=== PATIENT | female | born 1975 | race Caucasian/White ===

== ENCOUNTER 2019-11-27 10:33 | Outpatient (REF) | payer BC, SELFPAY ==
[2019-11-27 11:51] LABS: Creatinine Urine 137.07 mg/dL; Total Protein Urine Random 178 mg/dL (<12)
== END 2019-11-27 10:34 | disposition home or self-care (01) ==
LOC: HO.LAB 10:33
PROVIDERS: PCP Internal Medicine; Visit Provider Internal Medicine Nephrology
DX: N20.0 Calculus of kidney (principal); M32.14 Glomerular disease in systemic lupus erythematosus; R80.9 Proteinuria, unspecified; N28.9 Disorder of kidney and ureter, unspecified; M32.9 Systemic lupus erythematosus, unspecified
CPT/HCPCS: 84156

== ENCOUNTER → 2019-12-05 13:05 | Outpatient (BNVA) | payer BC, SELFPAY | PROVIDERS: PCP Internal Medicine; Referring Provider Internal Medicine; Visit Provider Nurse Practitioner Family | DX: Z76.89 Persons encountering health services in other specified circumstances (principal) ==

== ENCOUNTER → 2019-12-13 14:31 | Outpatient (BNVA) | payer BC, SELFPAY | PROVIDERS: PCP Internal Medicine; Referring Provider Internal Medicine; Visit Provider Student in an Organized Health Care Education/Training Program | DX: Z76.89 Persons encountering health services in other specified circumstances (principal) ==

== ENCOUNTER 2019-12-21 11:02 | Outpatient (REF) | payer BC, SELFPAY ==
[2019-12-21 13:04] LABS: Glucose Urine UA NEG (NEG); Leukocyte Esterase Urine NEG (NEG); Nitrite Urine NEG (NEG); Specific Gravity - Urine >= 1.030 (1.005-1.025); Urine Blood TRACE (NEG); Urine Ketones NEG (NEG); Urine Protein 2+ MG/DL (NEG-TRACE)
[2019-12-21 13:06] LABS: Appearance Urine HAZY; Color Urine YELLOW
[2019-12-21 13:28] LABS: Mucus Urine 3+ /LPF; Squamous Epithelial Cell Urine 1+ /LPF
[2019-12-21 13:55] LABS: Creatinine Urine 156.95 mg/dL; Protein/Creatinine Ratio, Ur 1.01 (<0.2); Total Protein Urine Random 158 mg/dL (<12)
[2019-12-21 13:59] LABS: Anion Gap 13 (12-20); Blood Urea Nitrogen 18 mg/dL (9-16); Calcium 9.1 mg/dL (8.4-10.2); Carbon Dioxide 23 mmol/L (22-29); Chloride 108 mmol/L (96-108); Estimated Glomerular Filt Rate > 60; Phosphorus 4.1 mg/dL (2.7-4.5); Potassium 4.3 mmol/l (3.3-5.1); Sodium 140 mmol/L (135-145)
[2019-12-21 16:39] LABS: Renal w Reflex Lab Use Only Order verified
[2019-12-22 12:01] LABS: Anti DNA DS Antibody <1 IU/mL
[2019-12-25 15:02] LABS: Complement C3 150 mg/dL (83-193)
== END 2019-12-21 11:03 | disposition home or self-care (01) ==
LOC: HO.LAB 11:02
PROVIDERS: Student in an Organized Health Care Education/Training Program; Absent Provider Internal Medicine Nephrology; Visit Provider Advanced Practice Midwife
DX: M32.9 Systemic lupus erythematosus, unspecified (principal); N20.0 Calculus of kidney; M32.14 Glomerular disease in systemic lupus erythematosus; R80.9 Proteinuria, unspecified; N28.9 Disorder of kidney and ureter, unspecified
CPT/HCPCS: 36415; 80051; 81001; 82310; 82565; 84100; 84156; 84520; 86160; 86225

== ENCOUNTER 2020-02-23 08:14 | Outpatient (REF) | payer BC, SELFPAY ==
[2020-02-23 09:10] LABS: MANUAL DIFF FLAG NO
[2020-02-23 09:15] LABS: Glucose Urine UA NEG (NEG); Leukocyte Esterase Urine NEG (NEG); Nitrite Urine NEG (NEG); PH 6.5 (5.0-8.0); Specific Gravity - Urine 1.025 (1.005-1.025); Urine Blood 2+ (NEG); Urine Ketones NEG (NEG); Urine Protein 2+ MG/DL (NEG-TRACE)
[2020-02-23 09:16] LABS: Basophils Percent Auto 0.6 % (0-2); Eosinophils Absolute Auto 0.1 X10*3/uL (0.0-0.4); Eosinophils Percent Auto 1.6 % (0-4); Hematocrit 41.2 % (37-47); Hemoglobin 13.8 g/dl (12.0-16.0); Imm Gran Abs Auto 0.04 X10*3/uL (0.00-0.03); Imm Gran Pct Auto 0.6 % (0.0-0.4); Lymphocytes Absolute Auto 2.1 X10*3/uL (1.2-4.9); Lymphocytes Percent Auto 30.3 % (20-40); Mean Corpuscular HGB Conc 33.5 g/dl (31.0-35.0); Mean Corpuscular Hemoglobin 29.7 pg (27.0-33.0); Mean Corpuscular Volume 88.8 fL (80-98); Mean Platelet Volume 11.3 fL (9.4-12.3); Monocytes Absolute Auto 0.4 X10*3/uL (0.1-1.2); Monocytes Percent Auto 5.7 % (2-11); Neutrophils Absolute Auto 4.3 X10*3/uL (2.0-8.3); Neutrophils Percent Auto 61.2 % (45-73); Platelet Count 216 X10*3/uL (160-400); Red Blood Count 4.64 X10*6/uL (4.20-5.50); Red Cell Distribution Width 13.1 % (11.0-16.0); White Blood Count 7.1 X10*3/uL (4.8-10.8)
[2020-02-23 09:16] LABS: Appearance Urine CLEAR; Color Urine YELLOW
[2020-02-23 09:26] LABS: Bacteria Urine TRACE /LPF; Mucus Urine 1+ /LPF; Squamous Epithelial Cell Urine 1+ /LPF
[2020-02-23 09:46] LABS: Alanine Aminotransferase 127 U/L (0-31); Albumin Level 3.9 g/dL (3.5-5.0); Alkaline Phosphatase 102 U/L (39-117); Anion Gap 13 (12-20); Aspartate Amino Transferase 67 U/L (5-31); Bilirubin Total 0.6 mg/dL (0.0-1.0); Blood Urea Nitrogen 16 mg/dL (9-16); C Reactive Protein 0.18 mg/dL (< or = 0.50); Calcium 9.2 mg/dL (8.4-10.2); Carbon Dioxide 24 mmol/L (22-29); Chloride 107 mmol/L (96-108); Estimated Glomerular Filt Rate > 60; Glucose Random 95 mg/dL (60-115); Potassium 4.2 mmol/l (3.3-5.1); Sodium 140 mmol/L (135-145)
[2020-02-23 10:09] LABS: Erythrocyte Sedimentation Rate 21 MM/HR (0-20)
== END 2020-02-23 08:15 | disposition home or self-care (01) ==
LOC: HO.LAB 08:14
PROVIDERS: PCP Internal Medicine; Visit Provider Student in an Organized Health Care Education/Training Program
DX: M32.9 Systemic lupus erythematosus, unspecified (principal)
CPT/HCPCS: 36415; 80053; 81001; 85025; 85652; 86140

== ENCOUNTER 2020-03-01 08:19 | Outpatient (REF) | payer BC, SELFPAY ==
[2020-03-01 09:19] LABS: Glucose Urine UA NEG (NEG); Leukocyte Esterase Urine NEG (NEG); Nitrite Urine NEG (NEG); Specific Gravity - Urine 1.025 (1.005-1.025); Urine Blood TRACE (NEG); Urine Ketones NEG (NEG); Urine Protein 2+ MG/DL (NEG-TRACE)
[2020-03-01 09:21] LABS: Appearance Urine CLEAR; Color Urine STRAW
[2020-03-01 09:57] LABS: Alanine Aminotransferase 105 U/L (0-31); Albumin Level 3.9 g/dL (3.5-5.0); Alkaline Phosphatase 96 U/L (39-117); Anion Gap 8 (12-20); Aspartate Amino Transferase 51 U/L (5-31); Bilirubin Total 0.5 mg/dL (0.0-1.0); Blood Urea Nitrogen 15 mg/dL (9-16); Calcium 8.9 mg/dL (8.4-10.2); Carbon Dioxide 29 mmol/L (22-29); Chloride 109 mmol/L (96-108); Estimated Glomerular Filt Rate > 60; Glucose Random 97 mg/dL (60-115); Potassium 4.5 mmol/l (3.3-5.1); Sodium 141 mmol/L (135-145); Total Protein 6.8 g/dL (6.5-8.0)
[2020-03-01 09:59] LABS: Squamous Epithelial Cell Urine TRACE /LPF
== END 2020-03-01 08:20 | disposition home or self-care (01) ==
LOC: HO.LAB 08:19
PROVIDERS: PCP Internal Medicine; Visit Provider Student in an Organized Health Care Education/Training Program
DX: M32.9 Systemic lupus erythematosus, unspecified (principal)
CPT/HCPCS: 36415; 80053; 81001

== ENCOUNTER → 2020-03-08 10:56 | Outpatient (BNVA) | payer BC, SELFPAY | PROVIDERS: PCP Internal Medicine; Visit Provider Advanced Practice Midwife | DX: Z30.42 Encounter for surveillance of injectable contraceptive (principal) | CPT/HCPCS: 96372; J1050 ==

== ENCOUNTER 2020-03-19 07:56 | Outpatient (REF) | payer BC, SELFPAY ==
--- NOTE | 2020-03-19 08:00 | US_ITS ---
EXAMINATION: US ABDOMEN COMPLETE CLINICAL INFORMATION: Elevation of levels of liver transaminase levels. COMPARISON: Ultrasound abdomen complete dated 12/02/2015 and 06/03/2009. CT abdomen and pelvis without contrast dated 04/16/2013. TECHNIQUE: Real-time imaging of the abdominal viscera. FINDINGS: PANCREAS: Normal. ABDOMINAL AORTA: The proximal, mid, and distal segments are normal in caliber. INFERIOR VENA CAVA: Visualized portions are normal. LIVER: Focal calcification within the posterior right hepatic lobe, which may indicate prior granulomatous disease. This was not seen on the prior examination. The liver is normal in size. The liver contour is normal. Parenchymal echogenicity is normal. No focal hepatic lesion. There is no intrahepatic biliary duct dilatation seen. GALLBLADDER: Normal. The gallbladder is physiologically distended without evidence of stones, sludge, polyps, wall thickening or pericholecystic fluid. COMMON BILE DUCT: Normal in caliber measuring 0.3 cm in diameter. RIGHT KIDNEY: Increased cortical echogenicity, which can be seen in the setting of medical renal disease. No focal parenchymal lesion. No hydronephrosis. No renal calculi. The kidney measures 11.3 cm in maximum dimension. LEFT KIDNEY: Increased cortical echogenicity, which can be seen in the setting of medical renal disease. Upper pole cyst measuring up to 3.5 cm with multiple septations. Midpole simple-appearing cyst measuring up to 2.9 cm. No hydronephrosis or renal calculi. The kidney measures 12.0 cm in maximum dimension. SPLEEN: Normal. The spleen measures 9.3 cm in maximum dimension. FREE FLUID: Partially visualized possible trace pericardial effusion. US/US abdomen complete IMPRESSION: 1. Focal hepatic parenchymal calcification, which may indicate prior granulomatous disease. No additional hepatic parenchymal lesion or biliary ductal dilatation. Unremarkable gallbladder. 2. Increased renal cortical echogenicity bilaterally, which can be seen in the setting of medical renal disease. Left renal upper pole complex cyst, increased in size when compared to the prior examination now measuring 3.5 cm (previously 1.5 cm). Simple-appearing left midpole renal cyst now measuring 2.9 cm (previously 1.1 cm). No new renal parenchymal lesion. 3. Partially visualized possible trace pericardial effusion.
== END 2020-03-19 07:57 | disposition home or self-care (01) ==
LOC: HO.US 07:56
PROVIDERS: Visit Provider Student in an Organized Health Care Education/Training Program
DX: R74.01 Elevation of levels of liver transaminase levels (principal)
CPT/HCPCS: 76700

== ENCOUNTER 2020-03-26 09:58 | Outpatient (REF) | payer BC, SELFPAY ==
[2020-03-26 11:35] LABS: MANUAL DIFF FLAG NO
[2020-03-26 11:43] LABS: Glucose Urine UA NEG (NEG); Leukocyte Esterase Urine NEG (NEG); Nitrite Urine NEG (NEG); Specific Gravity - Urine >= 1.030 (1.005-1.025); Urine Blood NEG (NEG); Urine Ketones NEG (NEG); Urine Protein 3+ MG/DL (NEG-TRACE)
[2020-03-26 11:44] LABS: Basophils Percent Auto 0.4 % (0-2); Eosinophils Absolute Auto 0.1 X10*3/uL (0.0-0.4); Eosinophils Percent Auto 1.7 % (0-4); Hematocrit 40.5 % (37-47); Hemoglobin 13.6 g/dl (12.0-16.0); Imm Gran Abs Auto 0.02 X10*3/uL (0.00-0.03); Imm Gran Pct Auto 0.3 % (0.0-0.4); Lymphocytes Percent Auto 26.7 % (20-40); Mean Corpuscular HGB Conc 33.6 g/dl (31.0-35.0); Mean Corpuscular Hemoglobin 30.2 pg (27.0-33.0); Mean Corpuscular Volume 89.8 fL (80-98); Mean Platelet Volume 11.3 fL (9.4-12.3); Monocytes Absolute Auto 0.4 X10*3/uL (0.1-1.2); Monocytes Percent Auto 5.8 % (2-11); Neutrophils Absolute Auto 4.9 X10*3/uL (2.0-8.3); Neutrophils Percent Auto 65.1 % (45-73); Platelet Count 236 X10*3/uL (160-400); Red Blood Count 4.51 X10*6/uL (4.20-5.50); Red Cell Distribution Width 13.1 % (11.0-16.0); White Blood Count 7.6 X10*3/uL (4.8-10.8)
[2020-03-26 11:48] LABS: Appearance Urine HAZY; Color Urine YELLOW
[2020-03-26 11:57] LABS: Mucus Urine 2+ /LPF; RBC Urine 0-2 /HPF (0); Squamous Epithelial Cell Urine 1+ /LPF
[2020-03-26 12:26] LABS: Alanine Aminotransferase 44 U/L (0-31); Alkaline Phosphatase 91 U/L (39-117); Anion Gap 11 (12-20); Aspartate Amino Transferase 29 U/L (5-31); Bilirubin Total 0.4 mg/dL (0.0-1.0); Blood Urea Nitrogen 18 mg/dL (9-16); C Reactive Protein 0.24 mg/dL (< or = 0.50); Calcium 9.3 mg/dL (8.4-10.2); Carbon Dioxide 26 mmol/L (22-29); Chloride 109 mmol/L (96-108); Estimated Glomerular Filt Rate > 60; Glucose Random 72 mg/dL (60-115); Potassium 3.9 mmol/L (3.3-5.1); Sodium 142 mmol/L (135-145); Total Protein 7.2 g/dL (6.5-8.0)
[2020-03-26 12:27] LABS: Creatinine Urine 239.24 mg/dL
[2020-03-26 12:31] LABS: Erythrocyte Sedimentation Rate 21 MM/HR (0-20)
[2020-03-26 13:09] LABS: Protein/Creatinine Ratio, Ur 1.45 (<0.2); Total Protein Urine Random 347 mg/dL (<12)
[2020-03-27 12:42] LABS: Anti DNA DS Antibody <1 IU/mL
[2020-03-27 13:58] LABS: Complement C3 108 mg/dL (83-193)
== END 2020-03-26 09:59 | disposition home or self-care (01) ==
LOC: HO.LAB 09:58
PROVIDERS: PCP Internal Medicine; Visit Provider Student in an Organized Health Care Education/Training Program
DX: M32.12 Pericarditis in systemic lupus erythematosus (principal); M32.14 Glomerular disease in systemic lupus erythematosus; Z79.899 Other long term (current) drug therapy
CPT/HCPCS: 36415; 80053; 81001; 84156; 85025; 85652; 86140; 86160; 86225

== ENCOUNTER → 2020-04-16 13:19 | Outpatient (BNVA) | payer BC, SELFPAY | PROVIDERS: PCP Internal Medicine; Visit Provider Physician Assistant ==

== ENCOUNTER 2020-05-03 11:53 | Outpatient (REF) | payer BC, SELFPAY ==
[2020-05-03 15:25] LABS: Glucose Urine UA NEG (NEG); Leukocyte Esterase Urine NEG (NEG); Nitrite Urine NEG (NEG); Specific Gravity - Urine >= 1.030 (1.005-1.025); Urine Blood NEG (NEG); Urine Ketones NEG (NEG); Urine Protein 2+ MG/DL (NEG-TRACE)
[2020-05-03 15:38] LABS: Color Urine YELLOW
[2020-05-03 15:39] LABS: Appearance Urine CLEAR
[2020-05-03 16:19] LABS: Bacteria Urine TRACE /LPF; Mucus Urine 1+ /LPF; Squamous Epithelial Cell Urine TRACE /LPF
== END 2020-05-03 11:54 | disposition home or self-care (01) ==
LOC: HO.HMGCLDS 11:53
PROVIDERS: Student in an Organized Health Care Education/Training Program; PCP Internal Medicine; Visit Provider Physician Assistant
DX: M32.9 Systemic lupus erythematosus, unspecified (principal); R10.11 Right upper quadrant pain
CPT/HCPCS: 81001

== ENCOUNTER 2020-05-24 11:02 | Outpatient (REF) | payer BC, SELFPAY ==
[2020-05-24 12:45] LABS: Glucose Urine UA NEG (NEG); Leukocyte Esterase Urine NEG (NEG); Nitrite Urine NEG (NEG); Specific Gravity - Urine >= 1.030 (1.005-1.025); Urine Blood 1+ (NEG); Urine Ketones NEG (NEG); Urine Protein 2+ MG/DL (NEG-TRACE)
[2020-05-24 12:46] LABS: Appearance Urine CLEAR; Color Urine YELLOW
[2020-05-24 12:59] LABS: Mucus Urine 1+ /LPF; Squamous Epithelial Cell Urine 2+ /LPF
[2020-05-24 13:00] LABS: Alanine Aminotransferase 19 U/L (0-31); Albumin Level 3.8 g/dL (3.5-5.0); Alkaline Phosphatase 94 U/L (39-117); Aspartate Amino Transferase 17 U/L (5-31); Bilirubin Direct 0.2 mg/dL (0.0-0.5); Bilirubin Total 0.3 mg/dL (0.0-1.0); Total Protein 6.9 g/dL (6.5-8.0)
== END 2020-05-24 11:03 | disposition home or self-care (01) ==
LOC: HO.LAB 11:02
PROVIDERS: Absent Provider Physician Assistant; PCP Internal Medicine; Referring Provider Student in an Organized Health Care Education/Training Program; Visit Provider Advanced Practice Midwife
DX: Z30.42 Encounter for surveillance of injectable contraceptive (principal); R10.11 Right upper quadrant pain
CPT/HCPCS: 36415; 80076; 81001; 96372; J1050

== ENCOUNTER → 2020-06-06 08:48 | Outpatient (BNVA) | payer BC, SELFPAY | PROVIDERS: PCP Internal Medicine; Visit Provider Physician Assistant ==

== ENCOUNTER → 2020-06-10 13:54 | Outpatient (REF) | payer BC, SELFPAY ==
--- NOTE | 2020-06-10 13:56 | CA_ITS ---
Transthoracic Echocardiogram Patient (Last, First, Middle): Nery Joseph, Gender: Female Date of : 1975 Age: 44 Procedure Date: 06/10/2020 Procedure Type: Transthoracic Echocardiogram Location: OP Height: 152.4 cm Weight: 72.58 kg BSA: 1.70 m2 Heart Rate: bpm BP: 128 / 70 mmHg Director Mortgage: KATI Referring MD: Yvonne Valadez PREVENTIVE MAINTENANCE COORDINATOR-Lenore Technical Support Coordinator: Jose Morataya MD Symptoms: I31.3 - Pericardial effusion (noninflammatory) Study Quality: Fair ECG Rhythm: Sinus Conclusions: - 1. Mild LV systolic dysfunction with impaired relaxation filling pattern 2. Normal cardiac valvular Doppler 3. Normal RV systolic pressure 4. Small circumferential pericardial effusion Findings Left Ventricle Normal left ventricular cavity size. There is normal left ventricular wall thickness. The left ventricular systolic function is mildly decreased. The visually estimated ejection fraction is between 45-50%. There is mild global hypokinesis. Spectral Doppler is indicative of an impaired relaxation filling pattern. E/E prime ratio is between 8 and 15 consistent with indeterminate filling pressures. Right Ventricle Normal right ventricular cavity size and systolic function. Atria The left atrium is normal in size. There is no evidence of interatrial shunt. The right atrium is normal in size. Aortic Valve Normal aortic valve structure and function. There is no aortic valve stenosis. There is no aortic valve regurgitation. Mitral Valve Normal mitral valve structure and function. There is trace mitral valve regurgitation. There is no mitral valve stenosis. Pulmonic Valve The pulmonic valve was not well visualized. Tricuspid Valve Likely normal tricuspid valve structure and function. There is trace tricuspid valve regurgitation. The right ventricular systolic pressure is normal. The right ventricular systolic pressure is 23 mmHg. Normal right atrial pressure. There is no evidence of pulmonary hypertension. Great Vessels All visible segments of the aorta are normal in size. The pulmonary artery was not well visualized. Pericardium/Pleural There is a small circumferential pericardial effusion. Prior Study Comparison Changes noted compared to prior study dated: 06/16/2019. LV systolic function is mildly reduced Measurements 2D Linear Measurements IVSd: 1.01 0.6-0.9/0.6-1.0 cm LVIDd: 4.28 3.9-5.3/4.2-5.9 cm LVIDd Index: 2.52 2.4-3.2/2.2-3.1 cm/m2 LVIDs: 2.89 2.0-3.6 cm LVPWd: 1.01 0.7-1.1 cm Ao Root: 2.90 2.1-3.5 cm LA Diam: 3.80 2.7-3.8/3.0-4.0 cm LAIDs Index: 2.24 1.5-2.3 cm/m2 LV Mass: 178.51 67-162/88-224 g LV Mass Index: 105.01 43-95/49-115 g/m2 LVOT Diam: 2.00 3.0+(-)1.3 cm 2D Systolic Function EF 4C: 41.70 >55% EF 2C: 42.60 >55% Mitral Valve MV Pk E: 0.78 MV PK A: 0.98 MV Decel Time: 165.00 E/A: 0.80 E'Lateral: 9.09 E'Medial: 4.64 E/E' Med: 16.80 E/E' Lat: 8.60 PHT: 48.00 MVA PHT: 4.58 Decel Sampson: 4.72 Aortic Valve AoV Pk Raffi: 1.45 AoV Mn Raffi: 0.97 AoV VTI: 0.26 AoV Pk Grad: 8.00 Aov Mn Grad: 4.00 MANOLO Cont.VTI: 2.13 LVOT LVOT Pk Raffi: 1.07 LVOT Mn Raffi: 0.66 LVOT VTI: 0.18 LVOT Pk Grad: 5.00 LVOT Mn Grad: 2.00 LVOT Diam: 2.00 LVOT Area: 3.14 Diastolic Function MV Pk E: 0.78 MV Pk A: 0.98 E/A: 0.80 E'Medial: 4.64 E/E' Med: 16.80 E' Laterial: 9.09 E/E' Lat: 8.60 Tricuspid Valve TR Pk Raffi: 2.22 TR Pk Grad: 20.00 RA Press: 3.00 RVSP: 23.00 Great Vessels Aorta Ao Root-2D: 2.90 2.0-3.7 cm Ao Asc: 3.00 2.1-3.4 cm Pulmonary Valve PV Pk Raffi: 0.86 Peak PV Grad: 3.00 Updated in Other Vendor System with Status of Final Jose Morataya MD electronically signed on 06/10/2020 4:39:04 PM with status of Final
== END ==
LOC: HO.CARD 13:54
PROVIDERS: PCP Internal Medicine; Visit Provider Internal Medicine Cardiovascular Disease
DX: I31.3 Pericardial effusion (noninflammatory) (principal); M32.9 Systemic lupus erythematosus, unspecified
CPT/HCPCS: 93306

== ENCOUNTER 2020-06-17 10:25 | Outpatient (REF) | payer BC, SELFPAY ==
[2020-06-17 11:54] LABS: Glucose Urine UA NEG (NEG); Leukocyte Esterase Urine NEG (NEG); Nitrite Urine NEG (NEG); Specific Gravity - Urine >= 1.030 (1.005-1.025); Urine Blood NEG (NEG); Urine Ketones NEG (NEG); Urine Protein 2+ MG/DL (NEG-TRACE)
[2020-06-17 12:08] LABS: C Reactive Protein 0.33 mg/dL (< or = 0.50)
[2020-06-17 12:23] LABS: Appearance Urine CLEAR; Color Urine YELLOW
[2020-06-17 12:47] LABS: Mucus Urine 2+ /LPF; RBC Urine 0 /HPF (0); Squamous Epithelial Cell Urine 1+ /LPF
[2020-06-17 14:01] LABS: Erythrocyte Sedimentation Rate 27 MM/HR (0-20)
== END 2020-06-17 10:26 | disposition home or self-care (01) ==
LOC: HO.LAB 10:25
PROVIDERS: Student in an Organized Health Care Education/Training Program; PCP Internal Medicine; Referring Provider Internal Medicine; Visit Provider Nurse Practitioner Family
DX: R07.9 Chest pain, unspecified (principal); I31.3 Pericardial effusion (noninflammatory); I45.10 Unspecified right bundle-branch block; I10 Essential (primary) hypertension; M32.9 Systemic lupus erythematosus, unspecified
CPT/HCPCS: 36415; 81001; 84484; 85652; 86140; 93005

== ENCOUNTER 2020-06-17 14:41 | Inpatient (IN) | payer BC, SELFPAY ==
--- NOTE | 2020-06-17 | ECG_ITS ---
Test Reason : CHEST PAIN Blood Pressure : / mmHG Vent. Rate : 096 BPM Atrial Rate : 096 BPM P-R Int : 132 ms QRS Dur : 116 ms QT Int : 358 ms P-R-T Axes : 048 -08 015 degrees QTc Int : 452 ms Normal sinus rhythm Incomplete right bundle branch block Abnormal ECG When compared with ECG of 07-NOV-2019 14:03, No significant change was found Referred By: Generic ED Physician Electronically Signed By:SHANDRA ALVAREZ
--- NOTE | ~2020-06-17 | CT_ITS ---
EXAMINATION: CT CHEST WITHOUT CONTRAST CLINICAL INFORMATION: Chest pain with history of pericardial effusion and pericarditis COMPARISON: CTA chest 03/29/2019, abdominal ultrasound 03/19/2020 TECHNIQUE: Multidetector volumetric CT imaging of the chest was done. Axial MIP volume rendering provided. Sagittal and coronal reformatted images were obtained. This CT examination was performed using dose optimization techniques as appropriate, variously including the following: *Automated exposure control *Adjustment of mA and/or kV according to patient size (this includes techniques or standardized protocols for targeted exams where dose is matched to indication/reason for exam; i.e. extremities or head) *Use of iterative reconstruction technique DLP: 227 mGy-cm FINDINGS: LUNGS: A left upper lobe infiltrate seen on the 03/29/2019 study has resolved. Scattered pulmonary nodules are all unchanged, the largest is perifissural in the right lower lobe measuring 5 mm in size. MEDIASTINUM: The mediastinum is normal. PLEURA: There is no pleural effusion. No pleural mass or thickening. AXILLA: Small axillary lymph nodes are present with no gross lymphadenopathy. UPPER ABDOMEN: Renal cortical subtle calcification is present bilaterally most prominent in the upper poles. This was most likely present on 03/29/2019 but was not possible to see because of administration of contrast. A right renal calculus is present measuring 5 mm in greatest dimension. A complex cyst is present in the left upper pole of the left kidney. OSSEOUS STRUCTURES: Unremarkable. CT/CT chest wo con IMPRESSION: 1. A cause for the patient's chest pain has not been found. A pericardial effusion evidence of pericarditis is not present. 2. Multiple unchanged pulmonary nodules the largest of which is 5 mm in size. 3. Again seen is bilateral cortical nephrocalcinosis, a right renal calculus and a partially visualized complex left upper pole renal cyst
--- NOTE | ~2020-06-17 | XR_ITS ---
EXAMINATION: XR CHEST CLINICAL INFORMATION: Chest pain COMPARISON: None TECHNIQUE: Frontal view of the chest was obtained. FINDINGS: No significant abnormality is noted involving the heart, lungs, mediastinum, bony thorax or soft tissues. XR/XR chest 1V IMPRESSION: Unremarkable examination.
[2020-06-17 14:44] VITALS: BP 147/83; PULSE 100; RESP 18; TEMP 36.7; O2SAT 100; BMI 31.2
[2020-06-17 15:14] VITALS: BP 123/82; PULSE 108; RESP 22; O2SAT 100
--- NOTE | 2020-06-17 15:46 | ED.CHESTPAIN ---
HPI - Chest Pain General Chief Complaint: Chest Pain Stated Complaint: ABNORMAL LABS Time Seen by Provider: 06/17/20 15:14 Source: patient Mode of arrival: ambulatory Limitations: no limitations History of Present Illness HPI narrative: 44 y/o female with history of SLE on Plaquinel, history of pericardial effusion, history of pericarditis, cardiomyopathy with EF 45%, RBBB, lupus nephritis who present to the ER with an elevated troponin level and left sided chest pain for the last 2 days. She reports on Wednesday she started having intermittent poking chest pain which she has a history of. On Wednesday the pain began to be more heavy and aching. Pain is worse when she lays down. It radiates to her back & left upper arm. She had a recent ECHO on Wednesday to assess her pericardial effusion. She got the results this morning from her C S S Representative (Dr. Morataya), stable small effusion. She told him her c/o chest pain and he ordered outpatient blood work. Troponin was noted to be elevated to 205 with ESR 27. She reports being off of her Colchicine for the last 3-4 months due to elevated liver function tests. MD complaint: chest pain Onset (ago): day(s) (2) Timing of current episode: constant Prior episodes: Yes Onset: during rest Pain location: left chest Pain radiation: left arm, left shoulder and left scapula Severity: similar to previous episodes Quality: aching and heaviness Relieving factors: nothing Exacerbating factors: supine Treatment prior to arrival: none Related Data Home Medications Medication Instructions Recorded Confirmed hydroxychloroquine 200 mg tablet 300 mg PO DAILY 12/05/19 06/17/20 meclizine 25 mg tablet 25 mg PO DAILY 12/05/19 06/17/20 losartan 50 mg tablet 100 mg PO DAILY tab 12/13/19 06/17/20 medroxyprogesterone 150 mg/mL 150 mg IM [id number] 12/13/19 06/17/20 intramuscular suspension Previous Rx's Medication Instructions Recorded docusate sodium 100 mg capsule 200 mg PO BEDTIME #60 cap 04/16/20 famotidine 20 mg tablet 20 mg PO DAILY #30 tab 06/06/20 methylcellulose (laxative) 500 mg 500 mg PO BID #60 tab 06/06/20 tablet Allergies Allergy/AdvReac Type Severity Reaction Status Date / Time aspirin Allergy Unknown vomiting, Verified 06/06/20 08:48 GI upset Review of Systems Review of Systems: Constitutional: No Fever, No Chills ENT/Mouth: No sore throat, No Rhinorrhea, No Swallowing Difficulty Eyes: No Eye Pain, No Swelling, No Redness Cardiovascular: + Chest Pain, No SOB, No Orthopnea, No Edema Respiratory: No Cough, No Sputum, No Wheezing, No dyspnea Gastrointestinal: No Nausea, No Vomiting, No Diarrhea, No abdominal Pain Genitourinary: No Dysuria, No Urinary Frequency, No Hematuria Musculoskeletal: + joint pain, + Myalgias Skin: No Skin Lesions, No rash Neuro: No Weakness, No Numbness, No Dizziness, No Headache Psych: No Anxiety/Panic, No Depression Heme/Lymph: No Bruising, No Lymphadenopathy PMFSH Past Medical History Medical History Chest pain HTN (hypertension) Lupus Lupus nephritis Pericardial effusion Pericarditis associated with systemic lupus erythematosus RBBB SLE (systemic lupus erythematosus) Surgical History History of biopsy History of wisdom tooth extraction Hx of tubal ligation Family History Family History Father No problems noted. Mother No problems noted. 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 Oriented X3. No acute distress. Eyes: Pupils equal, round and reactive to light. ENT: Pharynx normal. Neck: Normal inspection. Neck supple. CVS: tachycardic, regular rhythm. Pulses normal. Left anterior chest wall is tender to touch. No muffled heart sounds Respiratory: No respiratory distress. Breath sounds normal. Abdomen: Soft and nontender. +BS x4 Skin: Skin warm and dry. Normal skin color. Normal skin turgor. No rashes. Extremities: No lower extremity edema. Negative Torito's sign. Neuro: Oriented X 3. No motor deficit. No sensory deficit. Course Course Course Narrative: 44 y/o female with history of SLE, pericardial effusion, pericarditis who presents with left sided chest pain x2 days and elevated troponin & ESR. Concerning for recurrent pericarditis vs possible ACS. Her EKG does not show ST elevations. Will repeat troponin and basic lab workup. Reevaluation(s) Reevaluation #1: Repeat troponin downtrended but remains significantly more elevated than her prior. Spoke with Dr. Lam who is recommending inpatient admission and treatment with steroids for possible pericarditis. Reevaluation #2: Spoke with Dr. Lindsey for admission. Recommending CT chest to assess for fluid/inflammation. Order placed. Patient to be admitted. Patient is agreeable and updated on plan of care. Consultations Consultation #1: Cardiology - [facility] - Chest Pain Medical Records Data Attestation: I reviewed the patient's medical records. Lab Data Attestation: I reviewed the patient's lab results. Result diagrams: 06/17/20 15:44 06/17/20 15:44 Labs: Lab Results 06/17/20 06/17/20 06/17/20 Range/Units 15:44 15:44 15:44 WBC 9.2 (4.8-10.8) X10*3/uL RBC 4.30 (4.20-5.50) X10*6/uL Hgb 13.1 (12.0-16.0) g/dl Hct 38.8 (37-47) % MCV 90.2 (80-98) fL MCH 30.5 (27.0-33.0) pg MCHC 33.8 (31.0-35.0) g/dl RDW 12.8 (11.0-16.0) % Plt Count 224 (160-400) X10*3/uL MPV 10.6 (9.4-12.3) fL Immature Gran % (Auto) 0.4 (0.0-0.4) % Neut % (Auto) 61.9 (45-73) % Lymph % (Auto) 29.1 (20-40) % Dickinson % (Auto) 6.9 (2-11) % Eos % (Auto) 1.4 (0-4) % Baso % (Auto) 0.3 (0-2) % Lymph # (Auto) 2.7 (1.2-4.9) X10*3/uL Dickinson # (Auto) 0.6 (0.1-1.2) X10*3/uL Eos # (Auto) 0.1 (0.0-0.4) X10*3/uL Baso # (Auto) 0.0 (0.0-0.2) X10*3/uL Abs Immat Gran (auto) 0.04 H (0.00-0.03) X10*3/uL Absolute Neuts (auto) 5.7 (2.0-8.3) X10*3/uL Absolute Nucleated RBC 0.000 (0.0-0.012) X10*3/uL Nucleated RBC % (auto) 0.0 (0.0-0.2) /100WBC PT (10.8-13.0) SEC INR (0.9-1.1) APTT (24.1-38.0) SEC Hold Blue Top Cancelled Sodium 141 (135-145) mmol/L Potassium 3.3 (3.3-5.1) mmol/L Chloride 109 H (96-108) mmol/L Carbon Dioxide 24 (22-29) mmol/L Anion Gap 11 L (12-20) BUN 14 (9-16) mg/dL Creatinine 0.81 (0.5-1.4) mg/dL Estim Creat Clear Calc 77.1 Estimated GFR > 60 Random Glucose 76 (60-115) mg/dL Calcium 8.9 (8.4-10.2) mg/dL Magnesium 1.9 (1.6-2.6) mg/dL Total Bilirubin 0.4 (0.0-1.0) mg/dL Direct Bilirubin < 0.2 (0.0-0.5) mg/dL AST 16 (5-31) U/L ALT 15 (0-31) U/L Alkaline Phosphatase 94 (39-117) U/L Troponin I High Sens (<3.5-17.0) ng/L C-Reactive Protein (< or = 0.50) mg/dL B-Natriuretic Peptide (<100) pg/mL Total Protein 7.4 (6.5-8.0) g/dL Albumin 4.1 (3.5-5.0) g/dL Urine Color Urine Appearance Urine pH (5.0-8.0) Ur Specific [place] (1.005-1.025) Urine Protein (NEG-TRACE) MG/DL Urine Glucose (UA) (NEG) MG/DL Urine Ketones (NEG) MG/DL Urine Blood (NEG) Urine Nitrite (NEG) Ur Leukocyte Esterase (NEG) Urine RBC (0) /HPF Urine WBC (0-4) /HPF Ur Squamous Epith Cells /LPF Urine Bacteria /LPF Urine Test (NEGATIVE) 06/17/20 06/17/20 06/17/20 Range/Units 15:44 15:44 15:44 WBC (4.8-10.8) X10*3/uL RBC (4.20-5.50) X10*6/uL Hgb (12.0-16.0) g/dl Hct (37-47) % MCV (80-98) fL MCH (27.0-33.0) pg MCHC (31.0-35.0) g/dl RDW (11.0-16.0) % Plt Count (160-400) X10*3/uL MPV (9.4-12.3) fL Immature Gran % (Auto) (0.0-0.4) % Neut % (Auto) (45-73) % Lymph % (Auto) (20-40) % Dickinson % (Auto) (2-11) % Eos % (Auto) (0-4) % Baso % (Auto) (0-2) % Lymph # (Auto) (1.2-4.9) X10*3/uL Dickinson # (Auto) (0.1-1.2) X10*3/uL Eos # (Auto) (0.0-0.4) X10*3/uL Baso # (Auto) (0.0-0.2) X10*3/uL Abs Immat Gran (auto) (0.00-0.03) X10*3/uL Absolute Neuts (auto) (2.0-8.3) X10*3/uL Absolute Nucleated RBC (0.0-0.012) X10*3/uL Nucleated RBC % (auto) (0.0-0.2) /100WBC PT 13.6 H (10.8-13.0) SEC INR 1.1 (0.9-1.1) APTT 33.8 (24.1-38.0) SEC Hold Blue Top Sodium (135-145) mmol/L Potassium (3.3-5.1) mmol/L Chloride (96-108) mmol/L Carbon Dioxide (22-29) mmol/L Anion Gap (12-20) BUN (9-16) mg/dL Creatinine (0.5-1.4) mg/dL Estim Creat Clear Calc Estimated GFR Random Glucose (60-115) mg/dL Calcium (8.4-10.2) mg/dL Magnesium (1.6-2.6) mg/dL Total Bilirubin (0.0-1.0) mg/dL Direct Bilirubin (0.0-0.5) mg/dL AST (5-31) U/L ALT (0-31) U/L Alkaline Phosphatase (39-117) U/L Troponin I High Sens 187.8 H (<3.5-17.0) ng/L C-Reactive Protein 0.34 (< or = 0.50) mg/dL B-Natriuretic Peptide (<100) pg/mL Total Protein (6.5-8.0) g/dL Albumin (3.5-5.0) g/dL Urine Color Urine Appearance Urine pH (5.0-8.0) Ur Specific [place] (1.005-1.025) Urine Protein (NEG-TRACE) MG/DL Urine Glucose (UA) (NEG) MG/DL Urine Ketones (NEG) MG/DL Urine Blood (NEG) Urine Nitrite (NEG) Ur Leukocyte Esterase (NEG) Urine RBC (0) /HPF Urine WBC (0-4) /HPF Ur Squamous Epith Cells /LPF Urine Bacteria /LPF Urine Test (NEGATIVE) 06/17/20 06/17/20 06/17/20 Range/Units 15:44 15:45 15:45 WBC (4.8-10.8) X10*3/uL RBC (4.20-5.50) X10*6/uL Hgb (12.0-16.0) g/dl Hct (37-47) % MCV (80-98) fL MCH (27.0-33.0) pg MCHC (31.0-35.0) g/dl RDW (11.0-16.0) % Plt Count (160-400) X10*3/uL MPV (9.4-12.3) fL Immature Gran % (Auto) (0.0-0.4) % Neut % (Auto) (45-73) % Lymph % (Auto) (20-40) % Dickinson % (Auto) (2-11) % Eos % (Auto) (0-4) % Baso % (Auto) (0-2) % Lymph # (Auto) (1.2-4.9) X10*3/uL Dickinson # (Auto) (0.1-1.2) X10*3/uL Eos # (Auto) (0.0-0.4) X10*3/uL Baso # (Auto) (0.0-0.2) X10*3/uL Abs Immat Gran (auto) (0.00-0.03) X10*3/uL Absolute Neuts (auto) (2.0-8.3) X10*3/uL Absolute Nucleated RBC (0.0-0.012) X10*3/uL Nucleated RBC % (auto) (0.0-0.2) /100WBC PT (10.8-13.0) SEC INR (0.9-1.1) APTT (24.1-38.0) SEC Hold Blue Top Sodium (135-145) mmol/L Potassium (3.3-5.1) mmol/L Chloride (96-108) mmol/L Carbon Dioxide (22-29) mmol/L Anion Gap (12-20) BUN (9-16) mg/dL Creatinine (0.5-1.4) mg/dL Estim Creat Clear Calc Estimated GFR Random Glucose (60-115) mg/dL Calcium (8.4-10.2) mg/dL Magnesium (1.6-2.6) mg/dL Total Bilirubin (0.0-1.0) mg/dL Direct Bilirubin (0.0-0.5) mg/dL AST (5-31) U/L ALT (0-31) U/L Alkaline Phosphatase (39-117) U/L Troponin I High Sens (<3.5-17.0) ng/L C-Reactive Protein (< or = 0.50) mg/dL B-Natriuretic Peptide 13 (<100) pg/mL Total Protein (6.5-8.0) g/dL Albumin (3.5-5.0) g/dL Urine Color YELLOW Urine Appearance CLEAR Urine pH 6.0 (5.0-8.0) Ur Specific [place] >= 1.030 H (1.005-1.025) Urine Protein 2+ H (NEG-TRACE) MG/DL Urine Glucose (UA) NEG (NEG) MG/DL Urine Ketones NEG (NEG) MG/DL Urine Blood NEG (NEG) Urine Nitrite NEG (NEG) Ur Leukocyte Esterase NEG (NEG) Urine RBC 0 (0) /HPF Urine WBC 1-4 (0-4) /HPF Ur Squamous Epith Cells 1+ /LPF Urine Bacteria NONE /LPF Urine Test NEGATIVE (NEGATIVE) ECG Data ECG #1: Attestation: I personally reviewed and interpreted this ECG as follows: ECG interpretation date: 06/17/20 ECG interpretation time: 17:03 Interpretation: normal sinus rhythm, 96 bpm, incomplete RBBB, normal SC interval, No ST segment elevations Critical Care Time Critical Care Time Critical Care Time: Yes Total Critical Care Time: 45 Attestation: I attest to critical care time spent caring for this patient with acute chest pain concerning for pericarditis vs ACS. Time spent reviewing records, imaging, speaking with consultants and coordinating care. Discharge Plan Discharge Clinical Impression: Chest pain, Elevated troponin Prescriptions: No Action hydroxychloroquine 200 mg tablet 300 mg PO DAILY RF: 0 meclizine 25 mg tablet 25 mg PO DAILY RF: 0 losartan 50 mg tablet 100 mg PO DAILY RF: 0 Citrucel 500 mg tablet 500 mg PO BID Qty: 60 RF: 5 famotidine 20 mg tablet 20 mg PO DAILY Qty: 30 RF: 3 medroxyprogesterone [Depo-Provera] 150 mg/mL suspension 150 mg IM [id number] RF: 0 medroxyprogesterone [Depo-Provera] 150 mg/mL syringe 150 mg IM ONCE Qty: 1 RF: 0 docusate sodium [Colace] 100 mg capsule 200 mg PO BEDTIME Qty: 60 RF: 5
[2020-06-17 15:51] LABS: MANUAL DIFF FLAG NO
[2020-06-17 15:56] LABS: Basophils Percent Auto 0.3 % (0-2); Eosinophils Absolute Auto 0.1 X10*3/uL (0.0-0.4); Eosinophils Percent Auto 1.4 % (0-4); Hematocrit 38.8 % (37-47); Hemoglobin 13.1 g/dl (12.0-16.0); Imm Gran Abs Auto 0.04 X10*3/uL (0.00-0.03); Imm Gran Pct Auto 0.4 % (0.0-0.4); Lymphocytes Absolute Auto 2.7 X10*3/uL (1.2-4.9); Lymphocytes Percent Auto 29.1 % (20-40); Mean Corpuscular HGB Conc 33.8 g/dl (31.0-35.0); Mean Corpuscular Hemoglobin 30.5 pg (27.0-33.0); Mean Corpuscular Volume 90.2 fL (80-98); Mean Platelet Volume 10.6 fL (9.4-12.3); Monocytes Absolute Auto 0.6 X10*3/uL (0.1-1.2); Monocytes Percent Auto 6.9 % (2-11); Neutrophils Absolute Auto 5.7 X10*3/uL (2.0-8.3); Neutrophils Percent Auto 61.9 % (45-73); Platelet Count 224 X10*3/uL (160-400); Red Cell Distribution Width 12.8 % (11.0-16.0); White Blood Count 9.2 X10*3/uL (4.8-10.8)
[2020-06-17 16:02] LABS: INTERNATIONAL NORM RATIO 1.1 (0.9-1.1); Prothrombin Time 13.6 SEC (10.8-13.0)
[2020-06-17 16:05] LABS: Partial Thromboplastin Time 33.8 SEC (24.1-38.0)
[2020-06-17 16:09] LABS: Glucose Urine UA NEG (NEG); Leukocyte Esterase Urine NEG (NEG); Nitrite Urine NEG (NEG); Specific Gravity - Urine >= 1.030 (1.005-1.025); Urine Blood NEG (NEG); Urine Ketones NEG (NEG); Urine Protein 2+ MG/DL (NEG-TRACE)
[2020-06-17 16:13] LABS: UPreg QC Valid YES; Urine Pregnancy NEGATIVE (NEGATIVE)
[2020-06-17 16:15] LABS: C Reactive Protein 0.34 mg/dL (< or = 0.50)
[2020-06-17 16:17] LABS: Alanine Aminotransferase 15 U/L (0-31); Albumin Level 4.1 g/dL (3.5-5.0); Alkaline Phosphatase 94 U/L (39-117); Anion Gap 11 (12-20); Aspartate Amino Transferase 16 U/L (5-31); Bilirubin Direct < 0.2 mg/dL (0.0-0.5); Bilirubin Total 0.4 mg/dL (0.0-1.0); Blood Urea Nitrogen 14 mg/dL (9-16); Calcium 8.9 mg/dL (8.4-10.2); Carbon Dioxide 24 mmol/L (22-29); Chloride 109 mmol/L (96-108); Creatinine Clr Calc Pharmacy 77.1; Estimated Glomerular Filt Rate > 60; Glucose Random 76 mg/dL (60-115); Magnesium 1.9 mg/dL (1.6-2.6); Potassium 3.3 mmol/L (3.3-5.1); Sodium 141 mmol/L (135-145); Total Protein 7.4 g/dL (6.5-8.0)
[2020-06-17 16:22] LABS: Appearance Urine CLEAR; Color Urine YELLOW
[2020-06-17 16:22] LABS: B Type Natriuretic Peptide 13 pg/mL (<100)
[2020-06-17 16:28] LABS: Troponin-I High Sensitivity 187.8 ng/L (<3.5-17.0)
[2020-06-17 17:04] LABS: RBC Urine 0 /HPF (0); Squamous Epithelial Cell Urine 1+ /LPF
[2020-06-17] MEDS: Ketorolac Tromethamine 30 MG/ML VIAL IVPUSH (17:06)
[2020-06-17] MEDS: predniSONE 20 MG TABLET 60 MG PO (17:06)
[2020-06-17] MEDS: Acetaminophen 325 MG TABLET 650 MG PO (18:28)
[2020-06-17 18:49] LABS: COVID-19 Test Negative (Negative); IDNOW Serial# 9DD0AD1C
[2020-06-17 19:13] VITALS: BP 122/79; PULSE 96; RESP 25; O2SAT 98
--- NOTE | 2020-06-17 20:36 | PM.IMHP ---
History of Present Illness Date of Service: 06/17/20 Chief Complaint: Left sided chest pain This is a 44-year-old female with past medical history of hypertension, SLE, lupus nephritis, pericardial effusion, pericarditis associated with SLE, RBBB, who presents to the hospital with complaints of left-sided chest pain. Patient reports that she usually undergoes routine echoes have to monitor her pericarditis, she had an echo done few days ago, was followed up by her nurse practitioner who informed her there had echo showed fluid but that he was stable and that there is nothing that she needs to be done. informed her nurse practitioner that she was experiencing stabbing left-sided chest pain as well as sore chest and back and at that time she was asked to do some lab work including troponin. Her troponin came back positive therefore advised to come to the ED. patient reports that the poking chest sensation that she had started on Wednesday, lasted all day, no exacerbating or relieving factors, nonradiating, and resolved spontaneously. The next day she had sore chest as well as back that was worse with deep inspiration, movement, laying on her back, as well as lifting her left arm. She denies having any palpitations, reports that the pain lasted all day with no relief. She denies any abdominal pain, nausea or vomiting, no urinary symptoms and no lower extremity edema. No headache, change in vision. On arrival to the ED hemodynamically stable with no significant abnormal vitals Labs are significant for WBC count of 9.1, hemoglobin of 12.3, PT of 13.6, INR of 1.1, chloride of 111, anion gap of 9, BUN of 19, creatinine of 0.78, troponin initially 205, decreased to 187.8, Normal sinus rhythm with incomplete right bundle branch block with no significant change from previous EKG Chest CT shows a cause for the patient's chest pain has not been found, a pericardial effusion evident as of pericarditis is not present Multiple unchanged pulmonary nodules with largest 5 mm, and bilateral cortical nephrocalcinosis, right renal calculus and a portion leave visualize complex left upper pole renal cyst Cardiology was contacted and advised patient admission for observation and evaluation Review of Systems Review of Systems: Yes all other systems are reviewed and are negative [facility] Medical History Chest pain HTN (hypertension) Lupus Lupus nephritis Pericardial effusion Pericarditis associated with systemic lupus erythematosus RBBB SLE (systemic lupus erythematosus) Family History Father No problems noted. Mother No problems noted. Surgical History History of biopsy History of wisdom tooth extraction Hx of tubal ligation Social History Household Members: Significant Other and Children Housing: House Do you presently have visiting nurse or other home services: No Alcohol intake: never Smoking Status: Light tobacco smoker Use of substances other than those prescribed or required for medical reasons: No Have you been hit, kicked, punched, or otherwise hurt by someone within the past year? 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 Allergies Allergy/AdvReac Type Severity Reaction Status Date / Time aspirin Allergy Unknown vomiting, Verified 06/06/20 08:48 GI upset Home Medications Medication Instructions Recorded Confirmed Last Taken Type hydroxychloroquine 200 mg tablet 200 mg PO DAILY 12/05/19 06/17/20 06/17/20 History meclizine 25 mg tablet 25 mg PO DAILY 12/05/19 06/17/20 Unknown History losartan 50 mg tablet 50 mg PO BID tab 12/13/19 06/17/20 06/17/20 History cetirizine 1 tab PO DAILY 06/17/20 06/17/20 06/17/20 History fluticasone propionate 2 spray INTRANASAL BID 06/17/20 06/17/20 06/17/20 History Physical Exam Vital Signs and Narrative: Vital Signs: Last Vital Signs Temp 98.1 F 06/17/20 14:44 Pulse 96 06/17/20 19:13 Resp 25 H 06/17/20 19:13 BP 122/79 06/17/20 19:13 Pulse Ox 98 06/17/20 19:13 Body Mass Index 31.2 Const: General: cooperative and no acute distress Orientation/consciousness: patient oriented x3 Eyes: General: appearance normal, both eyes and all related structures Chest: Other: Pain is reproducible on pressing on the left chest, lifting the left arm Resp: Effort & Inspection: normal respiratory effort and able to speak in complete sentences Cardio: Rate: regular rate Rhythm: regular rhythm GI: Palpation (GI): Soft to palpation Auscultation: normal bowel sounds Skin: General skin exam: no rashes or lesions noted Neuro: General: patient oriented x3 Cognition (Neuro): normal cognition Extrem: General: Yes normal to inspection and Yes no pedal edema Results Labs CBC and Chem 7: 06/18/20 04:09 06/18/20 04:09 Labs: Laboratory Results - last 24 hr 06/17/20 06/17/20 06/17/20 15:44 15:44 15:44 MCV 90.2 MCH 30.5 MCHC 33.8 RDW 12.8 Plt Count 224 MPV 10.6 Immature Gran % (Auto) 0.4 Neut % (Auto) 61.9 Lymph % (Auto) 29.1 [place] % (Auto) 6.9 Eos % (Auto) 1.4 Baso % (Auto) 0.3 Lymph # (Auto) 2.7 [place] # (Auto) 0.6 Eos # (Auto) 0.1 Baso # (Auto) 0.0 Abs Immat Gran (auto) 0.04 H Absolute Neuts (auto) 5.7 Absolute Nucleated RBC 0.000 Nucleated RBC % (auto) 0.0 PT INR APTT Hold Blue Top Cancelled Anion Gap 11 L Estim Creat Clear Calc 77.1 Estimated GFR > 60 Random Glucose 76 Calcium 8.9 Magnesium 1.9 Total Bilirubin 0.4 Direct Bilirubin < 0.2 AST 16 ALT 15 Alkaline Phosphatase 94 Troponin I High Sens C-Reactive Protein B-Natriuretic Peptide Total Protein 7.4 Albumin 4.1 Urine Color Urine Appearance Urine pH Ur Specific [place] Urine Protein Urine Glucose (UA) Urine Ketones Urine Blood Urine Nitrite Ur Leukocyte Esterase Urine RBC Urine WBC Ur Squamous Epith Cells Urine Bacteria Urine Test COVID-19 (CHUCKY) COVID-19 [employer] 06/17/20 06/17/20 06/17/20 15:44 15:44 15:44 MCV MCH MCHC RDW Plt Count MPV Immature Gran % (Auto) Neut % (Auto) Lymph % (Auto) [place] % (Auto) Eos % (Auto) Baso % (Auto) Lymph # (Auto) [place] # (Auto) Eos # (Auto) Baso # (Auto) Abs Immat Gran (auto) Absolute Neuts (auto) Absolute Nucleated RBC Nucleated RBC % (auto) PT 13.6 H INR 1.1 APTT 33.8 Hold Blue Top Anion Gap Estim Creat Clear Calc Estimated GFR Random Glucose Calcium Magnesium Total Bilirubin Direct Bilirubin AST ALT Alkaline Phosphatase Troponin I High Sens 187.8 H C-Reactive Protein 0.34 B-Natriuretic Peptide Total Protein Albumin Urine Color Urine Appearance Urine pH Ur Specific [place] Urine Protein Urine Glucose (UA) Urine Ketones Urine Blood Urine Nitrite Ur Leukocyte Esterase Urine RBC Urine WBC Ur Squamous Epith Cells Urine Bacteria Urine Test COVID-19 (CHUCKY) COVID-19 [employer] 06/17/20 06/17/20 06/17/20 15:44 15:45 15:45 MCV MCH MCHC RDW Plt Count MPV Immature Gran % (Auto) Neut % (Auto) Lymph % (Auto) [place] % (Auto) Eos % (Auto) Baso % (Auto) Lymph # (Auto) [place] # (Auto) Eos # (Auto) Baso # (Auto) Abs Immat Gran (auto) Absolute Neuts (auto) Absolute Nucleated RBC Nucleated RBC % (auto) PT INR APTT Hold Blue Top Anion Gap Estim Creat Clear Calc Estimated GFR Random Glucose Calcium Magnesium Total Bilirubin Direct Bilirubin AST ALT Alkaline Phosphatase Troponin I High Sens C-Reactive Protein B-Natriuretic Peptide 13 Total Protein Albumin Urine Color YELLOW Urine Appearance CLEAR Urine pH 6.0 Ur Specific [place] >= 1.030 H Urine Protein 2+ H Urine Glucose (UA) NEG Urine Ketones NEG Urine Blood NEG Urine Nitrite NEG Ur Leukocyte Esterase NEG Urine RBC 0 Urine WBC 1-4 Ur Squamous Epith Cells 1+ Urine Bacteria NONE Urine Test NEGATIVE COVID-19 ([facility]UCKY) COVID-19 [employer] 06/17/20 18:26 MCV MCH MCHC RDW Plt Count MPV Immature Gran % (Auto) Neut % (Auto) Lymph % (Auto) [place] % (Auto) Eos % (Auto) Baso % (Auto) Lymph # (Auto) [place] # (Auto) Eos # (Auto) Baso # (Auto) Abs Immat Gran (auto) Absolute Neuts (auto) Absolute Nucleated RBC Nucleated RBC % (auto) PT INR APTT Hold Blue Top Anion Gap Estim Creat Clear Calc Estimated GFR Random Glucose Calcium Magnesium Total Bilirubin Direct Bilirubin AST ALT Alkaline Phosphatase Troponin I High Sens C-Reactive Protein B-Natriuretic Peptide Total Protein Albumin Urine Color Urine Appearance Urine pH Ur Specific [place] Urine Protein Urine Glucose (UA) Urine Ketones Urine Blood Urine Nitrite Ur Leukocyte Esterase Urine RBC Urine WBC Ur Squamous Epith Cells Urine Bacteria Urine Test COVID-19 ([facility]UCKY) Negative COVID-19 Clin Com See Note Imaging Radiologist's Impressions: Impressions Chest X-Ray 06/17/20 15:15 IMPRESSION: Unremarkable examination. Chest CT 06/17/20 17:37 IMPRESSION: 1. A cause for the patient's chest pain has not been found. A pericardial effusion evidence of pericarditis is not present. 2. Multiple unchanged pulmonary nodules the largest of which is 5 mm in size. 3. Again seen is bilateral cortical nephrocalcinosis, a right renal calculus and a partially visualized complex left upper pole renal cyst Assessment and Plan (1) Elevated troponin: Status: Acute (2) Atypical chest pain: Status: Acute (3) History of pericarditis: Status: Acute This is a 44-year-old female with a past medical history of pericarditis secondary to SLE who presents to the hospital with complaints of chest pain and elevated troponin # atypical chest pain - although has elevated troponin, the presenting chest pain is non-cardiac, reproducible, associated with muscle soreness, worse with movement, lifting of the left arm, palpation - EKG shows no evidence of acute coronary syndrome - patient will be admitted to telemetry - consult cardiology - [facility] for the next 2 days to help with inflammation # elevated troponin - unclear etiology - trended down - no EKG changes suggestive of ACS - CT chest shows no evidence of pericardial effusion - cardiology consulted # History of pericarditis - Echo done on 06/05 shows mild LV systolic dysfunction with impaired relaxation filling pattern, with small circuferential pericardial effusion - consult cardiology # GERD - continue famotidine # HTN - Continue losartan DVT: Lovenox
--- NOTE | 2020-06-17 20:43 | PC.NURSE ---
PT RESTING IN STRETCHERS DENIES ANY COMPLAINTS. PT WAKES TO VOICE, RESPIRAITONS EASY, N/L. SKIN W/D. PT AWAITING FOR ROOM ASSIGNMENT.
--- NOTE | 2020-06-17 22:07 | MHC.CM.PN ---
CM met with pt. A&Ox3. 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 Lives with daughter. Has no services at home. Is not interested in completing a HCP at this time. D/C plan is home without services. Family to provide transportation home.Brother, Seamus Joseph is contact ([phone]). CM to follow for d/c needs.
--- NOTE | 2020-06-17 23:13 | PC.NURSE ---
REPORT GIVEN TO FLOOR. PT TO FLOOR IN W/C ON MONITOR. PT LEFT ED IN NAD. HL FLUSHES EASILY W/O RESISTENCE, SITE INTACT.
[2020-06-17 23:35] VITALS: BP 131/79; PULSE 96; RESP 18; TEMP 36.9; O2SAT 97
[2020-06-17] MEDS: 0.9 % Sodium Chloride Flush 3 ML SYRINGE IVFLUSH (23:59)
[2020-06-17] MEDS: Enoxaparin Sodium 40 MG/0.4 ML SYRINGE SUBCUT (23:59)
[2020-06-17] MEDS: oxyCODONE HCl Immed Release 5 MG TABLET PO (23:59)
[2020-06-18 03:21] VITALS: BP 124/66; PULSE 87; RESP 18; TEMP 36.4; O2SAT 98
[2020-06-18 04:15] LABS: MANUAL DIFF FLAG NO
[2020-06-18 04:31] LABS: Basophils Percent Auto 0.2 % (0-2); Hematocrit 36.8 % (37-47); Hemoglobin 12.3 g/dl (12.0-16.0); Imm Gran Abs Auto 0.03 X10*3/uL (0.00-0.03); Imm Gran Pct Auto 0.3 % (0.0-0.4); Lymphocytes Percent Auto 10.5 % (20-40); Mean Corpuscular HGB Conc 33.4 g/dl (31.0-35.0); Mean Corpuscular Hemoglobin 29.9 pg (27.0-33.0); Mean Corpuscular Volume 89.3 fL (80-98); Mean Platelet Volume 10.6 fL (9.4-12.3); Monocytes Absolute Auto 0.2 X10*3/uL (0.1-1.2); Monocytes Percent Auto 2.6 % (2-11); Neutrophils Absolute Auto 7.8 X10*3/uL (2.0-8.3); Neutrophils Percent Auto 86.4 % (45-73); Platelet Count 221 X10*3/uL (160-400); Red Blood Count 4.12 X10*6/uL (4.20-5.50); Red Cell Distribution Width 12.5 % (11.0-16.0); White Blood Count 9.1 X10*3/uL (4.8-10.8)
[2020-06-18 05:04] LABS: Anion Gap 9 (12-20); Blood Urea Nitrogen 19 mg/dL (9-16); Calcium 8.9 mg/dL (8.4-10.2); Carbon Dioxide 22 mmol/L (22-29); Chloride 111 mmol/L (96-108); Creatinine Clr Calc Pharmacy 80.1; Estimated Glomerular Filt Rate > 60; Glucose Random 164 mg/dL (60-115); Potassium 4.3 mmol/L (3.3-5.1); Sodium 138 mmol/L (135-145)
[2020-06-18 06:54] VITALS: BP 101/56; PULSE 83; RESP 18; TEMP 36.1; O2SAT 99
[2020-06-18 08:36] VITALS: BP 101/56; PULSE 83
[2020-06-18] MEDS: Hydroxychloroquine Sulfate 200 MG TABLET 300 MG PO (08:36)
[2020-06-18] MEDS: 0.9 % Sodium Chloride Flush 3 ML SYRINGE IVFLUSH (08:36)
[2020-06-18] MEDS: Famotidine 20 MG TABLET PO (08:36)
[2020-06-18] MEDS: Losartan Potassium 50 MG TABLET 100 MG PO (08:36)
--- NOTE | 2020-06-18 10:12 | MHC.CM.PN ---
met with pt whois independent and working cm intervention is not indicated dc plan home no services
--- NOTE | 2020-06-18 10:40 | P.DS_ITS ---
DS: Providers Provider Date of Service: 06/18/20 Date of admission: 06/17/20 20:49 Date of discharge: 06/18/20 Primary care physician: Bryant Alejandra MD Admitting clinician: Neyda Bernal Attending physician on admission: Neyda Bernal Consults: 06/17/20 16:55 Consult to Cardiology Stat Consulting Provider: Moises Lam Reason for consultation: chest pain, elevated trop, hx pericarditis Has provider been notified: Yes 06/18/20 08:28 Consult to Cardiology Routine Consulting Provider: Moises Lam Reason for consultation: chest pain Has provider been notified: No Attending physician on discharge: [facility] Discharging clinician: Ammy Morfin DS: Diagnosis Discharge Diagnosis (1) Elevated troponin: Status: Acute (2) Atypical chest pain: Status: Acute (3) History of pericarditis: Status: Acute DS: Medications Discharge Medications Home Medications: Home Medications Medication Instructions Recorded Confirmed hydroxychloroquine 200 mg tablet 200 mg PO DAILY 12/05/19 06/17/20 meclizine 25 mg tablet 25 mg PO DAILY 12/05/19 06/17/20 losartan 50 mg tablet 50 mg PO BID tab 12/13/19 06/17/20 cetirizine 1 tab PO DAILY 06/17/20 06/17/20 fluticasone propionate 2 spray INTRANASAL BID 06/17/20 06/17/20 Previous Rx's Medication Instructions Recorded docusate sodium 100 mg capsule 200 mg PO BEDTIME #60 cap 04/16/20 famotidine 20 mg tablet 20 mg PO DAILY #30 tab 06/06/20 methylcellulose (laxative) 500 mg 500 mg PO BID #60 tab 06/06/20 tablet colchicine 0.6 mg PO DAILY #30 tab 06/18/20 colchicine 1.2 mg PO DAILY #2 tab 06/18/20 DS: Summary Hospital Course Hospital Course: HP as per admitting provider This is a 44-year-old female with past medical history of hypertension, SLE, lupus nephritis, pericardial effusion, pericarditis associated with SLE, RBBB, who presents to the hospital with complaints of left-sided chest pain. Patient reports that she usually undergoes routine echoes have to monitor her pericarditis, she had an echo done few days ago, was followed up by her nurse practitioner who informed her there had echo showed fluid but that he was stable and that there is nothing that she needs to be done. informed her nurse practitioner that she was experiencing stabbing left-sided chest pain as well as sore chest and back and at that time she was asked to do some lab work including troponin. Her troponin came back positive therefore advised to come to the ED. patient reports that the poking chest sensation that she had started on Wednesday, lasted all day, no exacerbating or relieving factors, nonradiating, and resolved spontaneously. The next day she had sore chest as well as back that was worse with deep inspiration, movement, laying on her back, as well as lifting her left arm. She denies having any palpitations, reports that the pain lasted all day with no relief. She denies any abdominal pain, nausea or vomiting, no urinary symptoms and no lower extremity edema. No headache, change in vision. On arrival to the ED hemodynamically stable with no significant abnormal vitals Labs are significant for WBC count of 9.1, hemoglobin of 12.3, PT of 13.6, INR of 1.1, chloride of 111, anion gap of 9, BUN of 19, creatinine of 0.78, troponin initially 205, decreased to 187.8, Normal sinus rhythm with incomplete right bundle branch block with no significant change from previous EKG Chest CT shows a cause for the patient's chest pain has not been found, a pericardial effusion evident as of pericarditis is not present Multiple unchanged pulmonary nodules with largest 5 mm, and bilateral cortical nephrocalcinosis, right renal calculus and a portion leave visualize complex left upper pole renal cyst . Pericarditis. History of chronic pericarditis, multiple episodes. Has been treated on multiple times. History of lupus/ lupus nephritis therefore more concern for any lab changes. Earlier this year she had been on colchicine but taken off because there was some abnormalities in her liver function. Time she returns with the same symptoms of chest pain. Her troponins were noted to be elevated but not felt to be ischemic. She was seen and evaluated by Cardiology. Discussion with her motion picture film examiner with recommendation to go ahead and start colchicine, will check liver enzymes in 1 week and she should follow-up with her motion picture film examiner for these results. Special care should be taken with NSAIDs considering her history of lupus nephritis therefore will not start at this time. Attending: Dr. Mlapah Time Spent with Patient Time attestation: Total time spent providing and/or coordinating discharge services: Discharge coordination time: Greater than 30 minutes Physical Exam Vital Signs: Vital Signs: Last Vital Signs Temp 97 F 06/18/20 06:54 Pulse 83 06/18/20 08:36 Resp 18 06/18/20 06:54 BP 101/56 L 06/18/20 08:36 Pulse Ox 99 06/18/20 06:54 Body Mass Index 31.2 Appearing in no acute distress head is normocephalic atraumatic eyes pupils are PERRLA sclera is anicteric mouth throat mucous membranes are intact and moist neck is supple no lymphadenopathy, no JVD noted lung sounds are clear to auscultation heart regular rate rhythm, clear S1, S2 positive bowel sounds, abdomen is soft, nontender neuro patient is alert x3, no focal deficits DS: Data Data Completed and Pending Labs on day of discharge: Laboratory Results - last 24 hr 06/17/20 06/17/20 06/17/20 15:44 15:44 15:44 WBC 9.2 RBC 4.30 Hgb 13.1 Hct 38.8 MCV 90.2 MCH 30.5 MCHC 33.8 RDW 12.8 Plt Count 224 MPV 10.6 Immature Gran % (Auto) 0.4 Neut % (Auto) 61.9 Lymph % (Auto) 29.1 [place] % (Auto) 6.9 Eos % (Auto) 1.4 Baso % (Auto) 0.3 Lymph # (Auto) 2.7 [place] # (Auto) 0.6 Eos # (Auto) 0.1 Baso # (Auto) 0.0 Abs Immat Gran (auto) 0.04 H Absolute Neuts (auto) 5.7 Absolute Nucleated RBC 0.000 Nucleated RBC % (auto) 0.0 PT INR APTT Hold Blue Top Cancelled Sodium 141 Potassium 3.3 Chloride 109 H Carbon Dioxide 24 Anion Gap 11 L BUN 14 Creatinine 0.81 Estim Creat Clear Calc 77.1 Estimated GFR > 60 Random Glucose 76 Calcium 8.9 Magnesium 1.9 Total Bilirubin 0.4 Direct Bilirubin < 0.2 AST 16 ALT 15 Alkaline Phosphatase 94 Troponin I High Sens C-Reactive Protein B-Natriuretic Peptide Total Protein 7.4 Albumin 4.1 Urine Color Urine Appearance Urine pH Ur Specific [place] Urine Protein Urine Glucose (UA) Urine Ketones Urine Blood Urine Nitrite Ur Leukocyte Esterase Urine RBC Urine WBC Ur Squamous Epith Cells Urine Bacteria Urine Test COVID-19 (CHUCKY) COVID-19 [employer] 06/17/20 06/17/20 06/17/20 15:44 15:44 15:44 WBC RBC Hgb Hct MCV MCH MCHC RDW Plt Count MPV Immature Gran % (Auto) Neut % (Auto) Lymph % (Auto) [place] % (Auto) Eos % (Auto) Baso % (Auto) Lymph # (Auto) [place] # (Auto) Eos # (Auto) Baso # (Auto) Abs Immat Gran (auto) Absolute Neuts (auto) Absolute Nucleated RBC Nucleated RBC % (auto) PT 13.6 H INR 1.1 APTT 33.8 Hold Blue Top Sodium Potassium Chloride Carbon Dioxide Anion Gap BUN Creatinine Estim Creat Clear Calc Estimated GFR Random Glucose Calcium Magnesium Total Bilirubin Direct Bilirubin AST ALT Alkaline Phosphatase Troponin I High Sens 187.8 H C-Reactive Protein 0.34 B-Natriuretic Peptide Total Protein Albumin Urine Color Urine Appearance Urine pH Ur Specific [place] Urine Protein Urine Glucose (UA) Urine Ketones Urine Blood Urine Nitrite Ur Leukocyte Esterase Urine RBC Urine WBC Ur Squamous Epith Cells Urine Bacteria Urine Test COVID-19 (CHUCKY) COVID-19 [employer] 06/17/20 06/17/20 06/17/20 15:44 15:45 15:45 WBC RBC Hgb Hct MCV MCH MCHC RDW Plt Count MPV Immature Gran % (Auto) Neut % (Auto) Lymph % (Auto) [place] % (Auto) Eos % (Auto) Baso % (Auto) Lymph # (Auto) [place] # (Auto) Eos # (Auto) Baso # (Auto) Abs Immat Gran (auto) Absolute Neuts (auto) Absolute Nucleated RBC Nucleated RBC % (auto) PT INR APTT Hold Blue Top Sodium Potassium Chloride Carbon Dioxide Anion Gap BUN Creatinine Estim Creat Clear Calc Estimated GFR Random Glucose Calcium Magnesium Total Bilirubin Direct Bilirubin AST ALT Alkaline Phosphatase Troponin I High Sens C-Reactive Protein B-Natriuretic Peptide 13 Total Protein Albumin Urine Color YELLOW Urine Appearance CLEAR Urine pH 6.0 Ur Specific [place] >= 1.030 H Urine Protein 2+ H Urine Glucose (UA) NEG Urine Ketones NEG Urine Blood NEG Urine Nitrite NEG Ur Leukocyte Esterase NEG Urine RBC 0 Urine WBC 1-4 Ur Squamous Epith Cells 1+ Urine Bacteria NONE Urine Test NEGATIVE COVID-19 (CHUCKY) COVID-19 Clin Com 06/17/20 06/18/20 06/18/20 18:26 04:09 04:09 WBC 9.1 RBC 4.12 L Hgb 12.3 Hct 36.8 L MCV 89.3 MCH 29.9 MCHC 33.4 RDW 12.5 Plt Count 221 MPV 10.6 Immature Gran % (Auto) 0.3 Neut % (Auto) 86.4 H Lymph % (Auto) 10.5 L [place] % (Auto) 2.6 Eos % (Auto) 0.0 Baso % (Auto) 0.2 Lymph # (Auto) 1.0 L [place] # (Auto) 0.2 Eos # (Auto) 0.0 Baso # (Auto) 0.0 Abs Immat Gran (auto) 0.03 Absolute Neuts (auto) 7.8 Absolute Nucleated RBC 0.000 Nucleated RBC % (auto) 0.0 PT INR APTT Hold Blue Top Sodium 138 Potassium 4.3 D Chloride 111 H Carbon Dioxide 22 Anion Gap 9 L BUN 19 H Creatinine 0.78 Estim Creat Clear Calc 80.1 Estimated GFR > 60 Random Glucose 164 H D Calcium 8.9 Magnesium Total Bilirubin Direct Bilirubin AST ALT Alkaline Phosphatase Troponin I High Sens C-Reactive Protein B-Natriuretic Peptide Total Protein Albumin Urine Color Urine Appearance Urine pH Ur Specific [place] Urine Protein Urine Glucose (UA) Urine Ketones Urine Blood Urine Nitrite Ur Leukocyte Esterase Urine RBC Urine WBC Ur Squamous Epith Cells Urine Bacteria Urine Test COVID-19 (CHUCKY) Negative COVID-19 Clin Com See Note Discharge Plan Discharge Anticipated Discharge Date/Time: 06/18/20 10:16 Patient Disposition: Home, Self-Care Discharge Diagnosis: Pericarditis Referrals: Horacio Mancilla MD [Physician] - None (Follow up regarding liver enzymes ) Bryant Alejandra MD [Primary Care Provider] - 1 Week Discharge Medications: New colchicine 0.6 mg tablet 0.6 mg PO DAILY Qty: 30 RF: 0 colchicine 0.6 mg tablet 1.2 mg PO DAILY Qty: 2 RF: 0 Continued cetirizine 10 mg tablet 1 tab PO DAILY RF: 0 fluticasone propionate 50 mcg/actuation spray,suspension 2 spray intranasal BID RF: 0 hydroxychloroquine 200 mg tablet 200 mg PO DAILY RF: 0 meclizine 25 mg tablet 25 mg PO DAILY RF: 0 losartan 50 mg tablet 50 mg PO BID RF: 0 Citrucel 500 mg tablet 500 mg PO BID Qty: 60 RF: 5 famotidine 20 mg tablet 20 mg PO DAILY Qty: 30 RF: 3 medroxyprogesterone [Depo-Provera] 150 mg/mL syringe 150 mg IM ONCE Qty: 1 RF: 0 docusate sodium [Colace] 100 mg capsule 200 mg PO BEDTIME Qty: 60 RF: 5 Discharge Orders: Discharge Order (Routine); Ordered 06/18/20 Ordered By: Ammy Morfin Diet: advance to usual diet Activity on Discharge: As tolerated Stand Alone Forms: Patient Portal Discharge page Other Ambulatory Orders: Liver Panel (Routine) Timeframe: 1 Week Facility: [facility] - Location: Laboratory Ordered By: Ammy Morfin Care Plan Goals: Resolution of pericarditis symptoms. Health Concerns: Pericarditis Chest pain Plan of Treatment: Follow up with your primary care provider as needed Follow-up with the motion picture film examiner regarding your labs for your liver enzymes. Check Liver enzymes in one week Take your new medications as prescribed Assessment: See discharge summary
--- NOTE | 2020-06-18 11:00 | P.CONCA_ITS ---
History of Present Illness History of Present Illness Date of Service: 06/18/20 Consult reason: chest pain Chief complaint: Acs r/o Narrative: This is a cardiology consultation regarding pericarditis and chest pain. She has had recurrent pericarditis related to lupus. About 3-4 episodes in the last few years. She states that she was maintained on colchicine. However, her LFTs within noted to be abnormal and this led to stopping the colchicine. She has been off this for couple months. The last 2 days, she has been having some left-sided chest pain which felt like sharp episodes. They were radiating to the back. She felt more pain when she was lying down and when she was breathing. When she was sitting up and leaning forward, she felt better. Today she states that she is much better from pain standpoint. No other complaints like shortness of breath or palpitations. Review of Systems Review of Systems: Yes all other systems are reviewed and are negative Cardiovascular: Cardiovascular: Reports as per HPI, Reports no additional cardiovascular complaints, Denies acrocyanosis, Denies cool extremities, Denies painful fingertips, Reports chest pain, Reports chest pain at rest, Denies diaphoresis, Denies syncope, Denies irregular heart rhythm, Denies claudication, Denies leg edema, Denies lightheadedness, Denies palpitations and Denies dyspnea Respiratory: Respiratory: Denies dyspnea Neurologic: Denies syncope Endocrine: Endocrine: Denies palpitations PMFSH Past Medical History Medical History Chest pain HTN (hypertension) Lupus Lupus nephritis Pericardial effusion Pericarditis associated with systemic lupus erythematosus RBBB SLE (systemic lupus erythematosus) Family History Family History Father No problems noted. Mother No problems noted. Surgical History Surgical History History of biopsy History of wisdom tooth extraction Hx of tubal ligation Social History Social History Household Members: Significant Other and Children Housing: House Do you presently have visiting nurse or other home services: No Alcohol intake: never Smoking Status: Light tobacco smoker Use of substances other than those prescribed or required for medical reasons: No Have you been hit, kicked, punched, or otherwise hurt by someone within the past year? 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 Allergies Allergy/AdvReac Type Severity Reaction Status Date / Time aspirin Allergy Unknown vomiting, Verified 06/06/20 08:48 GI upset Active Medications: Current Medications Generic Name Dose Route Start Last Admin Trade Name Freq PRN Reason Stop Dose Admin Acetaminophen 650 mg 06/17/20 23:33 Acetaminophen 325 Mg Tablet PO Q6H PRN Pain, Mild (Pain Scale 1-3) Docusate Sodium 100 mg 06/17/20 23:33 Docusate Sodium 100 Mg Capsule PO DAILY PRN Constipation Enoxaparin Sodium 40 mg 06/18/20 00:00 06/17/20 23:59 Enoxaparin Sodium 40 Mg/0.4 Ml Syringe SUBCUT 40 mg Q24H JENNIFRE Administration Famotidine 20 mg 06/18/20 09:00 06/18/20 08:36 Famotidine 20 Mg Tablet PO 20 mg DAILY JENNIFER Administration Hydroxychloroquine Sulfate 300 mg 06/18/20 09:00 06/18/20 08:36 Hydroxychloroquine Sulfate 200 Mg Tablet PO 300 mg DAILY JENNIFER Administration Ibuprofen 400 mg 06/17/20 23:33 Ibuprofen 400 Mg Tablet PO Q8H PRN Fever or Pain, mild Losartan Potassium 100 mg 06/18/20 09:00 06/18/20 08:36 Losartan Potassium 50 Mg Tablet PO 100 mg DAILY JENNIFER Administration Protocol Meclizine HCl 25 mg 06/18/20 09:00 06/18/20 08:42 Meclizine Hcl 25 Mg Tablet PO Not Given DAILY JENNIFER Oxycodone HCl 5 mg 06/17/20 23:33 06/17/20 23:59 Oxycodone Hcl Immed Release 5 Mg Tablet PO 5 mg Q6H PRN Administration Pain, Severe (Pain Scale 7-10) Sodium Chloride 3 ml 06/18/20 00:00 06/18/20 08:36 0.9 % Sodium Chloride Flush 3 Ml Syringe IVFLUSH 3 ml QSHIFT [facility] Administration Home Medications Medication Instructions Recorded Confirmed Last Taken Type hydroxychloroquine 200 mg tablet 200 mg PO DAILY 12/05/19 06/17/20 06/17/20 History meclizine 25 mg tablet 25 mg PO DAILY 12/05/19 06/17/20 Unknown History losartan 50 mg tablet 50 mg PO BID tab 12/13/19 06/17/20 06/17/20 History cetirizine 1 tab PO DAILY 06/17/20 06/17/20 06/17/20 History fluticasone propionate 2 spray INTRANASAL BID 06/17/20 06/17/20 06/17/20 History Physical Exam Vital Signs: Vital Signs: Last Vital Signs Temp 97 F 06/18/20 06:54 Pulse 83 06/18/20 08:36 Resp 18 06/18/20 06:54 BP 101/56 L 06/18/20 08:36 Pulse Ox 99 06/18/20 06:54 Body Mass Index 31.2 Const: General: cooperative, comfortable and no acute distress Orientation/consciousness: patient oriented x3 HENMT: Other: Unremarkable Neck: Neck: Yes normal visual inspection Chest: Chest palpation & inspection: normal inspection of the chest Resp: Auscultation: clear to auscultation bilaterally, no crackles and no wheezes Cardio: Jugular venous distension: no JVD Palpation: normal PMI Heart sounds: S1 normal heart sound present, S2 normal heart sound present, no gallops, no murmurs and no rubs GI: Palpation (GI): Soft to palpation Back/Spine/Pelvis: Other: unremarkable Skin: General skin exam: no rashes or lesions noted Neuro: General: patient oriented x3 Extrem: General: Yes no clubbing, cyanosis or edema Psych: Mental Status: mental status grossly normal Results Labs and Meds Result diagrams: 06/18/20 04:09 06/18/20 04:09 Lab results: Laboratory Results - last 24 hr 06/17/20 06/17/20 06/17/20 15:44 15:44 15:44 WBC 9.2 RBC 4.30 Hgb 13.1 Hct 38.8 MCV 90.2 MCH 30.5 MCHC 33.8 RDW 12.8 Plt Count 224 MPV 10.6 Immature Gran % (Auto) 0.4 Neut % (Auto) 61.9 Lymph % (Auto) 29.1 [place] % (Auto) 6.9 Eos % (Auto) 1.4 Baso % (Auto) 0.3 Lymph # (Auto) 2.7 [place] # (Auto) 0.6 Eos # (Auto) 0.1 Baso # (Auto) 0.0 Abs Immat Gran (auto) 0.04 H Absolute Neuts (auto) 5.7 Absolute Nucleated RBC 0.000 Nucleated RBC % (auto) 0.0 PT INR APTT Hold Blue Top Cancelled Sodium 141 Potassium 3.3 Chloride 109 H Carbon Dioxide 24 Anion Gap 11 L BUN 14 Creatinine 0.81 Estim Creat Clear Calc 77.1 Estimated GFR > 60 Random Glucose 76 Calcium 8.9 Magnesium 1.9 Total Bilirubin 0.4 Direct Bilirubin < 0.2 AST 16 ALT 15 Alkaline Phosphatase 94 Troponin I High Sens C-Reactive Protein B-Natriuretic Peptide Total Protein 7.4 Albumin 4.1 Urine Color Urine Appearance Urine pH Ur Specific [place] [employer] Urine Protein Urine Glucose (UA) Urine Ketones Urine Blood Urine Nitrite Ur Leukocyte Esterase Urine RBC Urine WBC Ur Squamous Epith Cells Urine Bacteria Urine Test COVID-19 (CHUCKY) COVID-19 Clin Com 06/17/20 06/17/20 06/17/20 15:44 15:44 15:44 WBC RBC Hgb Hct MCV MCH MCHC RDW Plt Count MPV Immature Gran % (Auto) Neut % (Auto) Lymph % (Auto) [place] % (Auto) Eos % (Auto) Baso % (Auto) Lymph # (Auto) [place] # (Auto) Eos # (Auto) Baso # (Auto) Abs Immat Gran (auto) Absolute Neuts (auto) Absolute Nucleated RBC Nucleated RBC % (auto) PT 13.6 H INR 1.1 APTT 33.8 Hold Blue Top Sodium Potassium Chloride Carbon Dioxide Anion Gap BUN Creatinine Estim Creat Clear Calc Estimated GFR Random Glucose Calcium Magnesium Total Bilirubin Direct Bilirubin AST ALT Alkaline Phosphatase Troponin I High Sens 187.8 H C-Reactive Protein 0.34 B-Natriuretic Peptide Total Protein Albumin Urine Color Urine Appearance Urine pH Ur Specific [place] [employer] Urine Protein Urine Glucose (UA) Urine Ketones Urine Blood Urine Nitrite Ur Leukocyte Esterase Urine RBC Urine WBC Ur Squamous Epith Cells Urine Bacteria Urine Test COVID-19 (CHUCKY) COVID-19 Clin Com 06/17/20 06/17/20 06/17/20 15:44 15:45 15:45 WBC RBC Hgb Hct MCV MCH MCHC RDW Plt Count MPV Immature Gran % (Auto) Neut % (Auto) Lymph % (Auto) [place] % (Auto) Eos % (Auto) Baso % (Auto) Lymph # (Auto) [place] # (Auto) Eos # (Auto) Baso # (Auto) Abs Immat Gran (auto) Absolute Neuts (auto) Absolute Nucleated RBC Nucleated RBC % (auto) PT INR APTT Hold Blue Top Sodium Potassium Chloride Carbon Dioxide Anion Gap BUN Creatinine Estim Creat Clear Calc Estimated GFR Random Glucose Calcium Magnesium Total Bilirubin Direct Bilirubin AST ALT Alkaline Phosphatase Troponin I High Sens C-Reactive Protein B-Natriuretic Peptide 13 Total Protein Albumin Urine Color YELLOW Urine Appearance CLEAR Urine pH 6.0 Ur Specific [place] [employer] >= 1.030 H Urine Protein 2+ H Urine Glucose (UA) NEG Urine Ketones NEG Urine Blood NEG Urine Nitrite NEG Ur Leukocyte Esterase NEG Urine RBC 0 Urine WBC 1-4 Ur Squamous Epith Cells 1+ Urine Bacteria NONE Urine Test NEGATIVE COVID-19 (CHUCKY) COVID-19 Clin Com 06/17/20 06/18/20 06/18/20 18:26 04:09 04:09 WBC 9.1 RBC 4.12 L Hgb 12.3 Hct 36.8 L MCV 89.3 MCH 29.9 MCHC 33.4 RDW 12.5 Plt Count 221 MPV 10.6 Immature Gran % (Auto) 0.3 Neut % (Auto) 86.4 H Lymph % (Auto) 10.5 L [place] % (Auto) 2.6 Eos % (Auto) 0.0 Baso % (Auto) 0.2 Lymph # (Auto) 1.0 L [place] # (Auto) 0.2 Eos # (Auto) 0.0 Baso # (Auto) 0.0 Abs Immat Gran (auto) 0.03 Absolute Neuts (auto) 7.8 Absolute Nucleated RBC 0.000 Nucleated RBC % (auto) 0.0 PT INR APTT Hold Blue Top Sodium 138 Potassium 4.3 D Chloride 111 H Carbon Dioxide 22 Anion Gap 9 L BUN 19 H Creatinine 0.78 Estim Creat Clear Calc 80.1 Estimated GFR > 60 Random Glucose 164 H D Calcium 8.9 Magnesium Total Bilirubin Direct Bilirubin AST ALT Alkaline Phosphatase Troponin I High Sens C-Reactive Protein B-Natriuretic Peptide Total Protein Albumin Urine Color Urine Appearance Urine pH Ur Specific [place] [employer] Urine Protein Urine Glucose (UA) Urine Ketones Urine Blood Urine Nitrite Ur Leukocyte Esterase Urine RBC Urine WBC Ur Squamous Epith Cells Urine Bacteria Urine Test COVID-19 (CHUCKY) Negative COVID-19 Clin Com See Note ECG Attestation: I personally reviewed and interpreted this ECG as follows: Interpretation: EKG on admission with sinus rhythm and incomplete right bundle- branch block and similar to prior. Imaging Radiologist's impression: Impressions Chest X-Ray 06/17/20 15:15 IMPRESSION: Unremarkable examination. Chest CT 06/17/20 17:37 IMPRESSION: 1. A cause for the patient's chest pain has not been found. A pericardial effusion evidence of pericarditis is not present. 2. Multiple unchanged pulmonary nodules the largest of which is 5 mm in size. 3. Again seen is bilateral cortical nephrocalcinosis, a right renal calculus and a partially visualized complex left upper pole renal cyst Assessment and Plan (1) Acute pericarditis: Qualifiers: Pericarditis type: associated with systemic lupus erythematosus Qualified Code(s): M32.12 - Pericarditis in systemic lupus erythematosus Status: Acute (2) Elevated troponin: Status: Acute (3) SLE (systemic lupus erythematosus): Qualifiers: Systemic lupus erythematosus type: other Systemic lupus erythematosus organ involvement: pericarditis Qualified Code(s): M32.12 - Pericarditis in systemic lupus erythematosus Status: Acute (4) Pericardial effusion: Status: Acute Elevated high sensitivity troponins noted. In the recent echocardiogram, LVEF was mildly diminished at 45-50%. There was a small circumferential pericardial effusion. However does not show the effusion no other significant findings. Clinically, her symptoms are suggestive of pericarditis. Need to discuss with rheumatology about resuming colchicine; not clear if that truly led to the abnormal LFTs in the past but they seem to be normal now. Otherwise, NSAIDs, but again after discussing with rheumatology. She seems to be stable for discharge and we can arrange follow-up.
[2020-06-18] MEDS: Colchicine 0.6 MG TABLET 1.2 MG PO (11:15)
--- NOTE | 2020-06-18 11:16 | MHC.CM.PN ---
pt dcd today no skilled servceis ordered by
== END 2020-06-18 13:10 | disposition home or self-care (01) | DRG 346 ==
LOC: HO.ED 17:43 → HO.EDOVER 21:13 → HO.IMC 22:04
PROVIDERS: Physician Assistant; Admitting Provider Internal Medicine; Emergency Provider Emergency Medicine; PCP Internal Medicine; Visit Provider Internal Medicine
DX: M32.12 Pericarditis in systemic lupus erythematosus (principal); I10 Essential (primary) hypertension; M32.9 Systemic lupus erythematosus, unspecified; K21.9 Gastro-esophageal reflux disease without esophagitis; R79.89 Other specified abnormal findings of blood chemistry; F17.210 Nicotine dependence, cigarettes, uncomplicated; Z71.6 Tobacco abuse counseling; Z20.822 Contact with and (suspected) exposure to COVID-19; Z79.3 Long term (current) use of hormonal contraceptives; Z79.51 Long term (current) use of inhaled steroids; Z79.899 Other long term (current) drug therapy
CPT/HCPCS: 36415; 71045; 71250; 80048; 80076; 81001; 81003; 81025; 83735; 83880; 84484; 85025; 85610; 85730; 86140; 87635; 93005; 96374; 99285; 99291; J1650; J1885

== ENCOUNTER → 2020-06-24 09:23 | Outpatient (REF) | payer BC, SELFPAY ==
--- NOTE | 2020-06-24 | CA_ITS ---
Acquisition Time: 2020-06-24 09:45:54 Total Exercise Time: 00:05:31 Test Indications: Chest Pain Medications: LOSARTAN HYDROXYCHLOROQUINE FAMOTIDINE Protocol: YESSICA Max HR: 171 BPM 98% of Pred: 174 BPM Max BP: 150/080 mmHG Max Work Load: 7.0 METS Exercise stress test using Buce protocol, total of 5 min 31 sec METS 7.0, TAPHR uo to 98 %. Pt tolerated well, c/o 2/10 chest discomfort, pressure that resolved 2 min into recovery. EKG with occ. PVC's and no ischemic changes seen during exercise or in recovery. Nuclear images to follow. Normotensive response to exercise. Test reviewed with Dr. Lam. Referred By: Yvonne Valadez Overread By: Gege Haque NP
--- NOTE | ~2020-06-24 | NM_ITS ---
Exercise Myocardial perfusion study Indication: Cardiomyopathy to evaluate for myocardial ischemia Technique: The patient was brought in for an exercise perfusion study on 06/24/2020. Patient performed exercise as per Amrik protocol and was injected 25 mCi of sestamibi was given intravenously one target HR was achieved. Images were obtained using the SPECT gamma camera interlaced with the gating device. Images were obtained in supine position. Resting perfusion study was performed on 06/25/2020. Patient was administered 25 mCi of sestamibi intravenously at rest. Images were then obtained in supine position. Images obtained with and without CT attenuation. Total DLP 91 mGy-cm. Images were processed with the software and compared side to side in short axis, horizontal long axis and vertical long axis views. Findings: The stress perfusion study showed non attenuated images show normal uptake of radiotracer in all segments of LV myocardium. Attenuation corrected images show mildly reduced uptake in the apex of the LV myocardium. The gated study shows normal LV systolic function with calculated LVEF of 69%. LV cavity is normal in size. The gated study shows normal systolic wall thickening and contraction of all segments. There is no transient ischemic dilation. Resting study shows no change in perfusion pattern compared to stress perfusion study. Gating at rest reveals normal systolic wall motion with ejection fraction at greater than 70 %. The findings are consistent with normal myocardial perfusion. NM/NM cardiolite stress test Impression: 1. Normal myocardial perfusion 2. Gated LVEF is 60% 3. Transient ischemic dilatation not present Stress EKG is equivocal for ischemia
== END ==
LOC: HO.CARD 09:23
PROVIDERS: PCP Internal Medicine; Visit Provider Nurse Practitioner Family
DX: R07.9 Chest pain, unspecified (principal); I42.9 Cardiomyopathy, unspecified; I31.3 Pericardial effusion (noninflammatory); I45.10 Unspecified right bundle-branch block; M32.9 Systemic lupus erythematosus, unspecified
CPT/HCPCS: 78452; 93016; 93017; 93018; A9500

== ENCOUNTER → 2020-07-01 14:27 | Outpatient (BNVA) | payer BC, SELFPAY | PROVIDERS: PCP Internal Medicine; Referring Provider Internal Medicine; Visit Provider Internal Medicine Cardiovascular Disease ==

== ENCOUNTER 2020-07-05 14:47 | Outpatient (REF) | payer BC, SELFPAY ==
[2020-07-05 15:44] LABS: MANUAL DIFF FLAG NO
[2020-07-05 15:48] LABS: Basophils Percent Auto 0.4 % (0-2); Eosinophils Absolute Auto 0.1 X10*3/uL (0.0-0.4); Eosinophils Percent Auto 1.3 % (0-4); Hematocrit 38.8 % (37-47); Imm Gran Abs Auto 0.02 X10*3/uL (0.00-0.03); Imm Gran Pct Auto 0.3 % (0.0-0.4); Lymphocytes Absolute Auto 2.1 X10*3/uL (1.2-4.9); Lymphocytes Percent Auto 29.3 % (20-40); Mean Corpuscular HGB Conc 33.5 g/dl (31.0-35.0); Mean Corpuscular Hemoglobin 30.1 pg (27.0-33.0); Mean Corpuscular Volume 89.8 fL (80-98); Mean Platelet Volume 10.7 fL (9.4-12.3); Monocytes Absolute Auto 0.5 X10*3/uL (0.1-1.2); Monocytes Percent Auto 7.5 % (2-11); Neutrophils Absolute Auto 4.3 X10*3/uL (2.0-8.3); Neutrophils Percent Auto 61.2 % (45-73); Platelet Count 205 X10*3/uL (160-400); Red Blood Count 4.32 X10*6/uL (4.20-5.50)
[2020-07-05 16:24] LABS: Alanine Aminotransferase 20 U/L (0-31); Albumin Level 4.1 g/dL (3.5-5.0); Alkaline Phosphatase 91 U/L (39-117); Anion Gap 10 (12-20); Aspartate Amino Transferase 16 U/L (5-31); Bilirubin Total 0.4 mg/dL (0.0-1.0); Blood Urea Nitrogen 16 mg/dL (9-16); C Reactive Protein 0.19 mg/dL (< or = 0.50); Calcium 9.4 mg/dL (8.4-10.2); Carbon Dioxide 25 mmol/L (22-29); Chloride 111 mmol/L (96-108); Estimated Glomerular Filt Rate 56; Glucose Random 71 mg/dL (60-115); Potassium 3.7 mmol/L (3.3-5.1); Sodium 142 mmol/L (135-145)
[2020-07-05 16:30] LABS: Glucose Urine UA NEG (NEG); Leukocyte Esterase Urine TRACE (NEG); Nitrite Urine POS (NEG); Specific Gravity - Urine 1.025 (1.005-1.025); Urine Blood TRACE (NEG); Urine Ketones 5 MG/DL (NEG); Urine Protein 2+ MG/DL (NEG-TRACE)
[2020-07-05 16:32] LABS: Appearance Urine HAZY; Color Urine YELLOW
[2020-07-05 16:35] LABS: Erythrocyte Sedimentation Rate 17 MM/HR (0-20)
[2020-07-05 16:44] LABS: Bacteria Urine TRACE /LPF; Calcium Oxalate Crystals Urine 1+ /LPF; Hyaline Casts Urine 0-2 /LPF; Mucus Urine 2+ /LPF; RBC Urine 0-2 /HPF (0); Squamous Epithelial Cell Urine 2+ /LPF; WBC Urine 30-49 /HPF (0-4)
[2020-07-05 17:05] LABS: Creatinine Urine 234.88 mg/dL; Protein/Creatinine Ratio, Ur 0.77 (<0.2); Total Protein Urine Random 182 mg/dL (<12)
[2020-07-06 12:21] LABS: Anti DNA DS Antibody <1 IU/mL
[2020-07-08 14:52] LABS: Complement C3 157 mg/dL (83-193)
== END 2020-07-05 14:48 | disposition home or self-care (01) ==
LOC: HO.LAB 14:47
PROVIDERS: PCP Internal Medicine; Visit Provider Student in an Organized Health Care Education/Training Program
DX: M32.12 Pericarditis in systemic lupus erythematosus (principal); M32.14 Glomerular disease in systemic lupus erythematosus; I45.10 Unspecified right bundle-branch block; F17.200 Nicotine dependence, unspecified, uncomplicated; Z88.6 Allergy status to analgesic agent; Z79.899 Other long term (current) drug therapy
CPT/HCPCS: 36415; 80053; 81001; 84156; 85025; 85652; 86140; 86160; 86225

== ENCOUNTER 2020-07-11 | Outpatient (REF) | payer BC, SELFPAY | END 2020-07-11 00:01 | disposition home or self-care (01) | LOC: HO.LNP | PROVIDERS: Visit Provider Hospitalist | DX: R10.9 Unspecified abdominal pain (principal) | CPT/HCPCS: 87086; 87088; 87186 ==

== ENCOUNTER 2020-07-11 22:08 | Emergency (ER) | payer BC, SELFPAY ==
--- NOTE | ~2020-07-11 | CT_ITS ---
EXAMINATION: CT ABDOMEN AND PELVIS WITHOUT CONTRAST CLINICAL INFORMATION: Left flank pain COMPARISON: 04/16/2013. Chest CT from 03/29/2019. TECHNIQUE: Multidetector volumetric imaging was performed from the superior aspect of the liver through the pubic symphysis. Sagittal and coronal reformatted images were obtained on the technologist's workstation. This CT examination was performed using dose optimization techniques as appropriate, variously including the following: *Automated exposure control *Adjustment of mA and/or kV according to patient size (this includes techniques or standardized protocols for targeted exams where dose is matched to indication/reason for exam; i.e. extremities or head) *Use of iterative reconstruction technique DLP: 546 mGy-cm FINDINGS: LUNG BASES: There is an unchanged 0.4 cm right lower lobe pulmonary nodule the first image of the study. LIVER, GALLBLADDER, AND BILIARY TREE: The liver is normal in size, shape, and attenuation. No focal hepatic lesion or biliary ductal dilatation is present. The gallbladder is unremarkable with no evidence of radiopaque gallstones, gallbladder wall thickening, or obvious pericholecystic inflammatory changes. PANCREAS: Unremarkable. SPLEEN: Unremarkable. ADRENAL GLANDS: Unremarkable. KIDNEYS AND URETERS: Normal size and position of the kidneys. There is heterogeneous appearance of the renal cortices, with areas of cortical calcification. This is similar to previous imaging. There is a simple cyst at the upper pole of the left kidney measuring 2.4 cm. There is a left lower pole 2.5 cm simple cyst. No follow-up imaging recommended. There is moderate right hydroureteronephrosis. There is a distal ureteral 0.6 cm calculus near the ureterovesicular junction. This measures 550 Hounsfield units. There is a nonobstructing right midpole 0.5 cm calculus, 9.5 cm from the posterior axillary line. BLADDER: Unremarkable. GASTROINTESTINAL TRACT: The stomach is decompressed with no gross abnormality. The small bowel is normal in caliber. There is no obstruction. Normal appendix. No colonic wall thickening or acute inflammation. No free. Small amount of free fluid in the pelvis. ABDOMINAL WALL: No significant hernia is appreciated. LYMPH NODES: Normal. VASCULAR: Unremarkable. PELVIC VISCERA: The uterus and adnexa are unremarkable. OSSEOUS STRUCTURES: Unremarkable. CT/CT abdomen pelvis wo con IMPRESSION: Moderate right hydroureteronephrosis with an obstructing distal ureteral 0.6 cm calculus. Abnormal appearance of the kidneys, with subtle cortical calcification. This is similar to previous imaging. Unchanged pulmonary nodule at the right lung base, suggesting benign etiology.
[2020-07-11 22:12] VITALS: BP 142/82; PULSE 110; RESP 20; TEMP 37.1; O2SAT 98; BMI 31.6
--- NOTE | 2020-07-12 00:22 | ED.ABDPAIN ---
HPI - Abdominal Pain General Chief Complaint: Abdominal Pain Stated Complaint: kidney stones Time Seen by Provider: 07/12/20 00:11 History of Present Illness HPI narrative: Patient is a 44-year-old female presents today with having left flank pain. The pain is fairly sudden in onset. Patient was seen at her primary physician's office was noted to have blood in her urine. Patient was given Percocet for pain but is not doing the job. Presented to the emergency department further evaluation. She had difficulty taking NSAIDs secondary to renal insufficiency secondary to lupus. No coughing or congestion or upper respiratory symptoms. No diaphoresis. No vaginal discharge. Patient does not think she is . Her she had a tubal ligation done approximately 20 years ago. No dizziness. Positive nausea no vomiting. Related Data Home Medications Medication Instructions Recorded Confirmed hydroxychloroquine 200 mg tablet 200 mg PO DAILY 12/05/19 07/11/20 meclizine 25 mg tablet 25 mg PO DAILY 12/05/19 07/11/20 losartan 50 mg tablet 50 mg PO BID tab 12/13/19 07/11/20 cetirizine 1 tab PO DAILY 06/17/20 07/11/20 fluticasone propionate 2 spray INTRANASAL BID 06/17/20 07/11/20 Previous Rx's Medication Instructions Recorded docusate sodium 100 mg capsule 200 mg PO BEDTIME #60 cap 04/16/20 famotidine 20 mg tablet 20 mg PO DAILY #30 tab 06/06/20 methylcellulose (laxative) 500 mg 500 mg PO BID #60 tab 06/06/20 tablet colchicine 0.6 mg PO DAILY #30 tab 06/18/20 cyclobenzaprine 5 mg tablet 5 mg PO BEDTIME PRN #30 tab 07/05/20 ondansetron HCl 8 mg tablet 8 mg PO Q8H PRN #20 tab 07/11/20 oxycodone-acetaminophen 5 mg-325 1 tab PO Q4H PRN #20 tab 07/11/20 mg tablet tamsulosin 0.4 mg capsule 0.4 mg PO BID #14 cap 07/11/20 levofloxacin 500 mg PO DAILY #7 tab 07/12/20 ondansetron 4 mg PO TID PRN 5 Days #10 tab 07/12/20 Allergies Allergy/AdvReac Type Severity Reaction Status Date / Time aspirin Allergy Unknown vomiting, Verified 07/11/20 15:10 GI upset Review of Systems Review of Systems Constitutional: No Weight loss, No Fever, No Chills, No Night Sweats, No Fatigue, No Malaise ENT/Mouth: No Hearing loss, No Ear Pain, No Nasal Congestion, No Sinus Pain, No Hoarseness, No sore throat, No Rhinorrhea, No Swallowing Difficulty Eyes: No Eye Pain, No Swelling, No Redness, No Foreign Body, No Discharge, No Vision Changes Cardiovascular: No Chest Pain, No SOB, No Dyspnea on Exertion, No Orthopnea, No Edema, No Palpitations Respiratory: No Cough, No Sputum, No Wheezing, No Smoke Exposure, No Dyspnea Gastrointestinal: Positive Nausea, No Vomiting, No Diarrhea, No Constipation, No abdominal Pain, No Hematochezia, No Melena Genitourinary: no irregular bleeding, No Dysuria, No Urinary Frequency, positive Hematuria, positive flank pain No Urinary Incontinence, No Urgency, No Flank Pain, No Urinary Flow Changes, No Hesitancy Musculoskeletal: No joint pain, No Myalgias, No Joint Swelling Skin: No Skin Lesions, No rash Neuro: No Weakness, No Numbness, No Paresthesias, No Loss of Consciousness, No Dizziness, No Headache Psych: No Anxiety/Panic, No Depression, No SI/HI/AH/VH, No Social Issues, Heme/Lymph: No Bruising, No Bleeding,No Lymphadenopathy Endocrine: No Polyuria, No Polydipsia, No Temperature Intolerance Physical Exam Vital Signs: Vital Signs: Last Vital Signs Temp 98.8 F 07/11/20 22:12 Pulse 110 H 07/11/20 22:12 Resp 20 07/11/20 22:12 BP 142/82 H 07/11/20 22:12 Pulse Ox 98 07/11/20 22:12 Body Mass Index 31.6 Appearance: Alert. Oriented X3. No acute distress. Eyes: Pupils equal, round and reactive to light. ENT: Pharynx normal. Neck: Normal inspection. Neck supple. No lymph nodes noted. No crepitus CVS: Normal heart rate and rhythm. Pulses normal. Normal S1 and S2 Respiratory: No respiratory distress. Breath sounds normal. No Wheezing. No rales Abdomen: Soft and nontender. No rigidity. No distention. good BS x4. Positive left flank tenderness Skin: Skin warm and dry. Normal skin color. Normal skin turgor. Extremities: No lower extremity edema. Neurovascular intact to all extremities. No Lacerations. No Rash Neuro: Oriented X 3. No motor deficit. No sensory deficit. Moving all extermities. No slurred speech MDM - Abdominal Pain MDM Narrative Medical decision making narrative: Patient presented with right flank pain. CT scan of the abdomen showed a right-sided 0.6 mm stone. Likely the cause of patient's symptoms. However patient's urine was grossly infected. Will start patient on Rocephin. Patient did not develop any fever at home or in emergency department. Patient's creatinine is normal. Will discuss patient's case with urology for urgent follow-up. Currently in stable condition. Discussed with patient any fever that develops she must return to the emergency department immediately. She must take her antibiotics. She must closely follow-up with Dr. Sutton on an outpatient basis. Patient's case discussed with Dr. Sutton. Agree with plan. Understood patient has a history of lupus. Understood patient has an infected stone. Agreed if patient develops any fever chills worsening condition she must return immediately. Lab Data Result diagrams: 07/12/20 00:21 Labs: Lab Results 07/12/20 07/12/20 Range/Units 00:21 00:21 Sodium 140 (135-145) mmol/L Potassium 3.7 (3.3-5.1) mmol/L Chloride 107 (96-108) mmol/L Carbon Dioxide 24 (22-29) mmol/L Anion Gap 13 (12-20) BUN 13 (9-16) mg/dL Creatinine 0.94 (0.5-1.4) mg/dL Estim Creat Clear Calc 66.9 Estimated GFR > 60 Random Glucose 105 D (60-115) mg/dL Calcium 9.1 (8.4-10.2) mg/dL Total Bilirubin 0.3 (0.0-1.0) mg/dL Direct Bilirubin < 0.2 (0.0-0.5) mg/dL AST 22 (5-31) U/L ALT 23 (0-31) U/L Alkaline Phosphatase 100 (39-117) U/L Total Protein 7.3 (6.5-8.0) g/dL Albumin 4.2 (3.5-5.0) g/dL Lipase 26 (8-78) U/L Urine Color YELLOW Urine Appearance CLOUDY Urine pH 7.0 (5.0-8.0) Ur Specific [place] 1.015 (1.005-1.025) Urine Protein 2+ H (NEG-TRACE) MG/DL Urine Glucose (UA) NEG (NEG) MG/DL Urine Ketones NEG (NEG) MG/DL Urine Blood 1+ H (NEG) Urine Nitrite NEG (NEG) Ur Leukocyte Esterase 3+ H (NEG) Urine RBC 0-2 (0) /HPF Urine WBC 50-75 H (0-4) /HPF Urine WBC Clumps NOTED Ur Squamous Epith Cells 1+ /LPF Urine Bacteria 2+ /LPF Urine Mucus TRACE /LPF Discharge Plan Discharge Clinical Impression: Renal colic, UTI (urinary tract infection) Patient Disposition: Home, Self-Care Instructions: Urinary Tract Infection in Women (ED), Renal Colic (ED) Prescriptions: New ondansetron 4 mg tablet,disintegrating 4 mg PO TID PRN (Reason: nausea and vomiting) 5 Days Qty: 10 RF: 0 levofloxacin 500 mg tablet 500 mg PO DAILY Qty: 7 RF: 0 No Action cetirizine 10 mg tablet 1 tab PO DAILY RF: 0 fluticasone propionate 50 mcg/actuation spray,suspension 2 spray intranasal BID RF: 0 colchicine 0.6 mg tablet 0.6 mg PO DAILY Qty: 30 RF: 0 ondansetron HCl 8 mg tablet 8 mg PO Q8H PRN (Reason: nausea and vomiting) Qty: 20 RF: 0 oxycodone-acetaminophen [Percocet] 5-325 mg tablet 1 tab PO Q4H PRN (Reason: pain) Qty: 20 RF: 0 tamsulosin [Flomax] 0.4 mg capsule 0.4 mg PO BID Qty: 14 RF: 0 hydroxychloroquine 200 mg tablet 200 mg PO DAILY RF: 0 meclizine 25 mg tablet 25 mg PO DAILY RF: 0 losartan 50 mg tablet 50 mg PO BID RF: 0 cyclobenzaprine 5 mg tablet 5 mg PO BEDTIME PRN (Reason: muscle spasm) Qty: 30 RF: 2 Citrucel 500 mg tablet 500 mg PO BID Qty: 60 RF: 5 famotidine 20 mg tablet 20 mg PO DAILY Qty: 30 RF: 3 medroxyprogesterone [Depo-Provera] 150 mg/mL syringe 150 mg IM ONCE Qty: 1 RF: 0 docusate sodium [Colace] 100 mg capsule 200 mg PO BEDTIME Qty: 60 RF: 5 Referrals: Julio Sutton MD [Physician] - 1 day [facility] Past Medical History Medical History Chest pain HTN (hypertension) Lupus Lupus nephritis Pericardial effusion Pericarditis associated with systemic lupus erythematosus RBBB SLE (systemic lupus erythematosus) Surgical History History of biopsy History of wisdom tooth extraction Hx of tubal ligation Family History Family History Father No problems noted. Mother No problems noted. 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
[2020-07-12] MEDS: HYDROmorphone HCl 0.5 MG/0.5 ML SYRINGE IVPUSH (00:25)
[2020-07-12] MEDS: ondansetron HCL 4 MG/2 ML VIAL IVPUSH (00:26)
[2020-07-12 00:39] LABS: Appearance Urine CLOUDY; Color Urine YELLOW; Glucose Urine UA NEG (NEG); Leukocyte Esterase Urine 3+ (NEG); Nitrite Urine NEG (NEG); Specific Gravity - Urine 1.015 (1.005-1.025); UACC Culture Trigger YES; Urine Blood 1+ (NEG); Urine Ketones NEG (NEG); Urine Protein 2+ MG/DL (NEG-TRACE)
[2020-07-12 00:56] LABS: Bacteria Urine 2+ /LPF; Mucus Urine TRACE /LPF; RBC Urine 0-2 /HPF (0); Squamous Epithelial Cell Urine 1+ /LPF; WBC Clumps Urine NOTED; WBC Urine 50-75 /HPF (0-4)
[2020-07-12 00:57] LABS: Alanine Aminotransferase 23 U/L (0-31); Albumin Level 4.2 g/dL (3.5-5.0); Alkaline Phosphatase 100 U/L (39-117); Anion Gap 13 (12-20); Aspartate Amino Transferase 22 U/L (5-31); Bilirubin Direct < 0.2 mg/dL (0.0-0.5); Bilirubin Total 0.3 mg/dL (0.0-1.0); Blood Urea Nitrogen 13 mg/dL (9-16); Calcium 9.1 mg/dL (8.4-10.2); Carbon Dioxide 24 mmol/L (22-29); Chloride 107 mmol/L (96-108); Creatinine Clr Calc Pharmacy 66.9; Estimated Glomerular Filt Rate > 60; Glucose Random 105 mg/dL (60-115); Lipase 26 U/L (8-78); Potassium 3.7 mmol/L (3.3-5.1); Sodium 140 mmol/L (135-145); Total Protein 7.3 g/dL (6.5-8.0)
[2020-07-12] MEDS: cefTRIAXone sodium 1 GM in 0.9 % Sodium Chloride 50 ML IV (02:41)
[2020-07-12] MEDS: Ketorolac Tromethamine 15 MG/ML VIAL IV (02:42)
--- NOTE | 2020-07-12 02:49 | PC.NURSE ---
pt medicated as per emar. pt getting ready for d/c.
== END 2020-07-12 03:31 | disposition home or self-care (01) ==
PROVIDERS: Emergency Provider Emergency Medicine Emergency Medical Services; PCP Internal Medicine
DX: N20.0 Calculus of kidney (principal); N39.0 Urinary tract infection, site not specified; I10 Essential (primary) hypertension; Z79.899 Other long term (current) drug therapy
CPT/HCPCS: 36415; 74176; 80048; 80076; 81001; 81003; 83690; 87086; 87088; 87186; 96365; 96372; 96375; 99283; 99284; J0696; J1170; J1885; J2405

== ENCOUNTER → 2020-07-19 11:37 | Outpatient (BNVA) | payer BC, SELFPAY | PROVIDERS: PCP Internal Medicine; Visit Provider Urology ==

== ENCOUNTER 2020-08-05 12:23 | Day surgery (SDC) | payer BC, SELFPAY ==
--- NOTE | 2020-08-01 14:01 | HO.ANESPROP2 ---
Documented by User: Simran Bravo 08/01/20 14:13 HPI - Anesthesia Eval Consult details Narrative: 44yo F for Right Cystoscopy, Ureteroroscopy, Retro, Laser SLE with chronic pericarditis. Restarted on colchicine 06/2020 with improvement in chest pain. Follows with cardiology and rheum. No further testing or change in treatment ordered at this time. Chronic opioids Plaquinel for SLE PMFSH Active Problems Active Problems: All Active Problems (Updated 07/13/20 @ 09:28 by Fredis Coulter DO) Renal calculi (Acute) Right flank pain (Acute) Acute pericarditis (Acute) History of pericarditis (Acute) Cardiomyopathy (Acute) Breast screening (Acute) Joint stiffness (Acute) Encounter for general adult medical examination with abnormal findings (Acute) Chronic constipation (Acute) Transaminitis (Acute) Encounter for management and injection of depo-Provera (Acute) Lupus nephritis (Acute) Pericarditis associated with systemic lupus erythematosus (Acute) Lupus (Acute) HTN (hypertension) (Acute) RBBB (Acute) Pericardial effusion (Acute) SLE (systemic lupus erythematosus) (Acute) Past Medical History Medical History Chest pain HTN (hypertension) Lupus Lupus nephritis Pericardial effusion Pericarditis associated with systemic lupus erythematosus RBBB SLE (systemic lupus erythematosus) Family History Family History Father No problems noted. Mother No problems noted. 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 Allergies Allergy/AdvReac Type Severity Reaction Status Date / Time aspirin Allergy Unknown vomiting, Verified 07/19/20 11:38 GI upset Home Medications Medication Instructions Recorded Confirmed Last Taken Type hydroxychloroquine 200 mg tablet 200 mg PO DAILY 12/05/19 07/11/20 06/17/20 History meclizine 25 mg tablet 25 mg PO DAILY 12/05/19 07/11/20 Unknown History losartan 50 mg tablet 50 mg PO BID tab 12/13/19 07/11/20 06/17/20 History cetirizine 1 tab PO DAILY 06/17/20 07/11/20 06/17/20 History fluticasone propionate 2 spray INTRANASAL BID 06/17/20 07/11/20 06/17/20 History Exam Exam Date and Time: August 01, 2020 1401 Pertinent Lab Results Pertinent Lab Results: Laboratory Tests 07/05/20 07/12/20 15:40 00:21 WBC 7.0 Hgb 13.0 Hct 38.8 Plt Count 205 Sodium 140 Potassium 3.7 Chloride 107 Carbon Dioxide 24 BUN 13 Creatinine 0.94 Narrative Narrative: Echo 05/2020 Conclusions: - 1. Mild LV systolic dysfunction with impaired relaxation filling pattern 2. Normal cardiac valvular Doppler 3. Normal RV systolic pressure 4. Small circumferential pericardial effusion NM cardiolite stress test 05/2020 Impression: 1. Normal myocardial perfusion 2. Gated LVEF is 60% 3. Transient ischemic dilatation not present Stress EKG is equivocal for ischemia Assessment and Plan Assessment Anesthesia Assessment: Chart Reviewed Documented by User: Juju Gutiérrez 08/05/20 17:04 [facility] Past Medical History Medical History Chest pain HTN (hypertension) Lupus Lupus nephritis Pericardial effusion Pericarditis associated with systemic lupus erythematosus RBBB SLE (systemic lupus erythematosus) Family History Family History Father No problems noted. Mother No problems noted. Family history of problems with anesthesia: No Surgical History Surgical History History of biopsy History of wisdom tooth extraction Hx of tubal ligation History of Problems with Anesthesia: No Social History Social History Household Members: Significant Other and Children Housing: House Do you presently have visiting nurse or other home services: No Alcohol intake: never Patient Tobacco Use Status: Never used Tobacco Smoked in Last 30 Days: No Use of substances other than those prescribed or required for medical reasons: No Are you DNR?: No Advance Directives: No Advance Directives Information Provided: Yes service: No 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 occupational status: employed 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 Allergies Allergy/AdvReac Type Severity Reaction Status Date / Time aspirin Allergy Unknown vomiting, Verified 07/19/20 11:38 GI upset Home Medications Medication Instructions Recorded Confirmed Last Taken Type hydroxychloroquine 200 mg tablet 200 mg PO DAILY 12/05/19 07/11/20 06/17/20 History meclizine 25 mg tablet 25 mg PO DAILY 12/05/19 07/11/20 Unknown History losartan 50 mg tablet 50 mg PO BID tab 12/13/19 07/11/20 06/17/20 History cetirizine 1 tab PO DAILY 06/17/20 07/11/20 06/17/20 History fluticasone propionate 2 spray INTRANASAL BID 06/17/20 07/11/20 06/17/20 History Exam Height,Weight and Vital Signs: Vital Signs Temp Pulse Resp BP Pulse Ox 08/05/20 14:07 97.3 F 98 16 130/82 99 Airway Mallampati Class: II TM Dist: >3cm Neck ROM: Limited Heart: RRR Lungs: CTAB Assessment and Plan Assessment Anesthesia Assessment: Anesthesia Plan Discussed and Chart Reviewed Final Anesthetic Review NPO: Yes ASA Class: III Final Preanesthetic Review: No Changes in Pt Med Stat, Meds/Allgs Chart Reviewed, Consent Obtained/Reviewed and Anes Risks/Benef Reviewed Patient Risk: Intermediate Procedure Risk: Low Assessment/Block/Sedation in SS: Assess/Block/Sedation-SS Anesthetic Plan Anesthetic Plan: GA Disposition: Standard PACU Documented by User: Karen Thomson 08/05/20 17:56 PMFSH Past Medical History Medical History Chest pain HTN (hypertension) Lupus Lupus nephritis Pericardial effusion Pericarditis associated with systemic lupus erythematosus RBBB SLE (systemic lupus erythematosus) Family History Family History Father No problems noted. Mother No problems noted. 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 Allergies Allergy/AdvReac Type Severity Reaction Status Date / Time aspirin Allergy Unknown vomiting, Verified 07/19/20 11:38 GI upset Home Medications Medication Instructions Recorded Confirmed Last Taken Type hydroxychloroquine 200 mg tablet 200 mg PO DAILY 12/05/19 07/11/20 06/17/20 History meclizine 25 mg tablet 25 mg PO DAILY 12/05/19 07/11/20 Unknown History losartan 50 mg tablet 50 mg PO BID tab 12/13/19 07/11/20 06/17/20 History cetirizine 1 tab PO DAILY 06/17/20 07/11/20 06/17/20 History fluticasone propionate 2 spray INTRANASAL BID 06/17/20 07/11/20 06/17/20 History Exam Airway Mallampati Class: II TM Dist: >3cm Neck ROM: Full
--- NOTE | ~2020-08-05 | FL_ITS ---
EXAMINATION: XR FLUOROSCOPY WITH IMAGES CLINICAL INFORMATION: Kidney stones COMPARISON: CT abdomen and pelvis 07/04/2020 TECHNIQUE: Fluoroscopy performed by Dr. Julio Sutton. Fluoroscopy time: 29.6 seconds Dose: 8.92 mGycm2 Images: 1 FL/FL guidance in OR Findings/impression: There is a single AP view of the pelvis revealing a distal ureteral stent in the bladder. There is faint opacification of bladder from contrast. Fluoroscopy was provided to Dr. Herman Kim during the procedure.
[2020-08-05 14:04] VITALS: BMI 30.7
[2020-08-05 14:07] VITALS: BP 130/82; PULSE 98; RESP 16; TEMP 36.3; O2SAT 99
[2020-08-05] MEDS: Lactated Ringers 1,000 ML 50 ML IVCONT (14:17)
--- NOTE | 2020-08-05 14:18 | PC.NURSE ---
Patient arrived to [facility] wearing a pair of silver hoop earrings, a black watch, and one necklace. All taken off by patient and placed in patients black purse.
--- NOTE | 2020-08-05 17:35 | MHC.SHP ---
Pre-Procedural Eval Section A The patient is an INPATIENT: No Changes since office visit: No Cold of Flu in the past 2 weeks, No New Medical Problems, No Changes in Medication and No Patient answered all questions The History & Physical has been completed within 30 days and I have reviewed it.: Yes Section B Chief Complaint: calculus of kidney Allergies: Allergies Allergy/AdvReac Type Severity Reaction Status Date / Time aspirin Allergy Unknown vomiting, Verified 07/19/20 11:38 GI upset Plan Diagnosis/Plan: Unchanged ( right retrograde, ureteroscopy laser lithotripsy stent placement) I have reviewed the history and physical and performed a pertinent physical examination on my patient. No changes have occurred unless specified.
[2020-08-05] MEDS: levoFLOXacin 500 MG TABLET PO (17:36)
--- NOTE | 2020-08-05 18:13 | P.OP_ITS ---
Operative Note Operative Note Date of Service: 08/05/20 Narrative: PreOperative Diagnosis: right distal ureteric stone Post Operative Diagnosis: right distal ureteric stone Procedure: - rightcystoscopy, retrograde - right dilatation of ureteric orifice under fluoroscopy - ureteroscopy, laser lithotripsy - right stent placement Surgeon: Dr Julio Sutton Anesthesia: General Indications for procedure: 44-year-old female. Persistent right flank pain. Imaging with right distal ureter stone and mild hydroureteronephrosis. Given stone location recommendation for ureteroscopy laser lithotripsy and stone basketing. Procedure: After informed consent was verified patient was brought to the operating placed in supine position. Anesthesia was administered per protocol. Patient was placed in modified dorsal lithotomy position and prepped and draped in a sterile fashion. Safety pause time-out and side of surgery confirmed. Antibiotics confirmed. 22 [place] cystoscope inserted per urethra. Bladder was normal in its appearance. The right ureteric orifice was cannulated retrograde examination was performed. Filling defect was seen in the distal portion of the right ureter. Sensor guidewire was placed. Ureter was dilated with Casey dilator under fluoroscopy. Rigid ureteroscopy post performed. The stone was encountered. Stone was very high. Using a 360 holmium laser fiber the stone was broken into small pieces. These were too small to basket. Decision was made to proceed straight with stent placement. Six [place] by 22 cm double-J stent was placed without difficulty under fluoroscopy in good curl seen within the bladder and within the renal pelvis. She tolerated the procedure well was extubated in operating room and transferred in stable condition to recovery area Pathology: none Drains: 6 [place] by 22 cm double-J stent
[2020-08-05 18:17] VITALS: BP 120/70; PULSE 104; RESP 10; TEMP 36.2; O2SAT 100
[2020-08-05 18:22] VITALS: BP 129/80; PULSE 98; RESP 14; O2SAT 100
[2020-08-05] MEDS: Phenazopyridine HCL 100 MG TABLET PO (18:25)
[2020-08-05] MEDS: oxyCODONE HCl Immed Release 5 MG TABLET PO (18:26)
[2020-08-05] MEDS: Acetaminophen 325 MG TABLET 650 MG PO (18:26)
[2020-08-05 18:27] VITALS: BP 121/77; PULSE 93; RESP 14; O2SAT 100
[2020-08-05 18:32] VITALS: BP 117/74; PULSE 91; RESP 16; O2SAT 100
[2020-08-05 18:47] VITALS: BP 121/81; PULSE 96; RESP 16
--- NOTE | 2020-08-05 18:57 | PC.NURSE ---
DRESSING AT BEDSIDE NO DIZZINESS OR NAUSEA REPORTED. REVIEW DISCHARGE INSTRUCTIONS.
== END 2020-08-05 18:58 | disposition home or self-care (01) ==
PROVIDERS: PCP Internal Medicine; Visit Provider Urology
PROC: (CPT 52356; principal; 2020-08-05 15:30)
DX: N20.1 Calculus of ureter (principal); I10 Essential (primary) hypertension; I45.10 Unspecified right bundle-branch block; M32.9 Systemic lupus erythematosus, unspecified; M32.14 Glomerular disease in systemic lupus erythematosus; M32.12 Pericarditis in systemic lupus erythematosus; Z79.899 Other long term (current) drug therapy; Z88.8 Allergy status to other drugs, medicaments and biological substances
CPT/HCPCS: 52356; C1769; C2617; J1100; J2250; J2405; J3010; Q9967

== ENCOUNTER → 2020-08-07 09:25 | Outpatient (BNVA) | payer BC, SELFPAY | PROVIDERS: PCP Internal Medicine; Visit Provider Physician Assistant ==

== ENCOUNTER → 2020-08-08 14:18 | Outpatient (BNVA) | payer BC, SELFPAY | PROVIDERS: PCP Internal Medicine; Visit Provider Advanced Practice Midwife ==

== ENCOUNTER → 2020-08-09 15:44 | Outpatient (BNVA) | payer BC, SELFPAY | PROVIDERS: PCP Internal Medicine; Visit Provider Obstetrics & Gynecology ==

== ENCOUNTER → 2020-08-12 13:16 | Outpatient (BNVA) | payer BC, SELFPAY | PROVIDERS: Visit Provider Obstetrics & Gynecology | DX: N92.0 Excessive and frequent menstruation with regular cycle (principal) | CPT/HCPCS: 96372 ==

== ENCOUNTER → 2020-08-15 13:52 | Outpatient (BNVA) | payer BC, SELFPAY | PROVIDERS: PCP Internal Medicine; Visit Provider Urology | DX: N20.0 Calculus of kidney (principal) | CPT/HCPCS: 52310 ==

== ENCOUNTER → 2020-08-23 09:27 | Outpatient (REF) | payer BC, SELFPAY ==
--- NOTE | 2020-08-23 09:30 | CA_ITS ---
Transthoracic Echocardiogram Patient (Last, First, Middle): Nery Joseph, Gender: Female Date of : 1975 Age: 44 Procedure Date: 08/23/2020 Procedure Type: Transthoracic Echocardiogram Location: OP Height: 152.4 cm Weight: 70.76 kg BSA: 1.68 m2 Heart Rate: bpm BP: 128 / 70 mmHg Vacuum Technician: Referring MD: Jose Morataya MD Symptoms: I42.9 - Cardiomyopathy, unspecified Study Quality: Fair ECG Rhythm: Sinus Conclusions: - The left ventricular systolic function is mildly decreased. The calculated ejection fraction is 48% by biplane method. Findings Left Ventricle Normal left ventricular cavity size. The left ventricular systolic function is mildly decreased. The calculated ejection fraction is 48% by biplane method. There is mild global hypokinesis. Venous The inferior vena cava is normal in size and collapses greater than 50% with inspiration. Prior Study Comparison No significant change compared to prior study dated: 06/10/2020. Measurements 2D Linear Measurements LVIDd: 4.45 3.9-5.3/4.2-5.9 cm LVIDd Index: 2.65 2.4-3.2/2.2-3.1 cm/m2 LVIDs: 3.32 2.0-3.6 cm LVPWd: 0.64 0.7-1.1 cm 2D Systolic Function EF 4C: 48.30 >55% EF 2C: 46.80 >55% EF BiP: 48.20 >55% Mitral Valve MV Pk E: 0.59 MV PK A: 0.75 MV Decel Time: 136.00 E/A: 0.80 E'Lateral: 4.68 E'Medial: 3.70 E/E' Med: 15.90 E/E' Lat: 12.50 Diastolic Function MV Pk E: 0.59 MV Pk A: 0.75 E/A: 0.80 E'Medial: 3.70 E/E' Med: 15.90 E' Laterial: 4.68 E/E' Lat: 12.50 Updated in Other Vendor System with Status of Final Moises Lam MD electronically signed on 08/24/2020 12:49:31 PM with status of Final
== END ==
LOC: HO.CARD 09:27
PROVIDERS: Visit Provider Internal Medicine Cardiovascular Disease
DX: I42.9 Cardiomyopathy, unspecified (principal)
CPT/HCPCS: 93308

== ENCOUNTER 2020-08-29 08:05 | Outpatient (REF) | payer BC, SELFPAY ==
--- NOTE | ~2020-08-29 | MM_ITS ---
EXAMINATION: MM SCREENING DIGITAL BREAST TOMOSYNTHESIS, BILATERAL CLINICAL INFORMATION: Screening. Asymptomatic. The lifetime risk of breast cancer based on the Tyrer-Cuzick Model is 7%. COMPARISON: Mammography: 08/28/2019, 07/09/2018, 01/20/2016 TECHNIQUE: Digital breast tomosynthesis is performed in both the craniocaudal and mediolateral oblique views along with computer-aided detection (CAD). Synthesized 2D images are generated from the tomosynthesis. Additional left MLO view is provided. FINDINGS: There are scattered areas of fibroglandular density (ACR BI-RADS breast composition Category b). There are no significant masses, abnormal calcifications, or other abnormalities. Parenchymal pattern is similar to prior studies. No developing density. No significant changes. MM/MM tomosynthesis screening BI IMPRESSION: No mammographic evidence of malignancy. ASSESSMENT: BI-RADS 1: Negative RECOMMENDATION: Routine annual mammography screening. This patient's information was entered into a reminder system with a target due date for their next mammogram.
== END 2020-08-29 08:06 | disposition home or self-care (01) ==
LOC: HO.MAMMO 08:05
PROVIDERS: Visit Provider Internal Medicine
DX: Z12.31 Encounter for screening mammogram for malignant neoplasm of breast (principal)
CPT/HCPCS: 77063; 77067

== ENCOUNTER 2020-09-09 12:27 | Outpatient (REF) | payer BC, SELFPAY ==
--- NOTE | ~2020-09-09 | US_ITS ---
EXAMINATION: US RETROPERITONEAL LIMITED (RENAL ONLY) CLINICAL INFORMATION: Calculus of kidney. COMPARISON: CT abdomen and pelvis 07/12/2020. Ultrasound abdomen complete 03/19/2020. Ultrasound abdomen 12/02/2015. TECHNIQUE: Real-time imaging of the kidneys. FINDINGS: RIGHT KIDNEY: 10.9 x 6.1 x 5.2 cm (SAG x AP x TRV). The kidney is normal in size and contour. Renal cortical thickness is normal. No focal parenchymal lesions or hydronephrosis. There is an echogenic stone midpole measuring 0.85 x 0.81 cm. LEFT KIDNEY: 11.5 x 5.1 x 4.4 cm (SAG x AP x TRV). The kidney is normal in size and contour. There is increased echogenicity noted. Renal cortical thickness is normal. No renal calculi or hydronephrosis. US/US renal BI IMPRESSION: Nonobstructive echogenic stone midpole right kidney. Left renal cysts. Renal cysts were seen on the previous CT abdomen exam 07/12/2020.
== END 2020-09-09 12:28 | disposition home or self-care (01) ==
LOC: HO.US 12:27
PROVIDERS: PCP Internal Medicine; Visit Provider Urology
DX: N20.0 Calculus of kidney (principal)
CPT/HCPCS: 76775

== ENCOUNTER 2020-09-13 15:12 | Outpatient (REF) | payer BC, SELFPAY ==
[2020-09-13 15:53] LABS: MANUAL DIFF FLAG NO
[2020-09-13 16:17] LABS: Alanine Aminotransferase 15 U/L (0-31); Alkaline Phosphatase 88 U/L (39-117); Anion Gap 11 (12-20); Aspartate Amino Transferase 16 U/L (5-31); Bilirubin Total 0.4 mg/dL (0.0-1.0); Blood Urea Nitrogen 16 mg/dL (9-16); C Reactive Protein 0.19 mg/dL (< or = 0.50); Calcium 9.3 mg/dL (8.4-10.2); Carbon Dioxide 23 mmol/L (22-29); Chloride 111 mmol/L (96-108); Estimated Glomerular Filt Rate > 60; Glucose Random 77 mg/dL (60-115); Sodium 141 mmol/L (135-145)
[2020-09-13 16:22] LABS: Basophils Percent Auto 0.4 % (0-2); Eosinophils Absolute Auto 0.1 X10*3/uL (0.0-0.4); Eosinophils Percent Auto 1.1 % (0-4); Hematocrit 39.2 % (37-47); Imm Gran Abs Auto 0.03 X10*3/uL (0.00-0.03); Imm Gran Pct Auto 0.4 % (0.0-0.4); Mean Corpuscular HGB Conc 33.2 g/dl (31.0-35.0); Mean Corpuscular Hemoglobin 29.4 pg (27.0-33.0); Mean Corpuscular Volume 88.7 fL (80-98); Mean Platelet Volume 10.8 fL (9.4-12.3); Monocytes Absolute Auto 0.5 X10*3/uL (0.1-1.2); Neutrophils Percent Auto 65.1 % (45-73); Platelet Count 219 X10*3/uL (160-400); Red Blood Count 4.42 X10*6/uL (4.20-5.50); Red Cell Distribution Width 13.1 % (11.0-16.0); White Blood Count 7.6 X10*3/uL (4.8-10.8)
[2020-09-13 17:02] LABS: Erythrocyte Sedimentation Rate 14 MM/HR (0-20)
[2020-09-13 17:23] LABS: Glucose Urine UA NEG (NEG); Leukocyte Esterase Urine NEG (NEG); Nitrite Urine NEG (NEG); Specific Gravity - Urine >= 1.030 (1.005-1.025); Urine Blood NEG (NEG); Urine Ketones NEG (NEG); Urine Protein 2+ MG/DL (NEG-TRACE)
[2020-09-13 17:26] LABS: Appearance Urine HAZY; Color Urine YELLOW
[2020-09-13 17:38] LABS: Mucus Urine 1+ /LPF; Squamous Epithelial Cell Urine TRACE /LPF
[2020-09-13 17:42] LABS: Creatinine Urine 186.09 mg/dL; Protein/Creatinine Ratio, Ur 0.58 (<0.2); Total Protein Urine Random 108 mg/dL (<12)
[2020-09-14 13:27] LABS: Anti DNA DS Antibody <1 IU/mL
[2020-09-16 12:16] LABS: Complement C3 168 mg/dL (83-193)
== END 2020-09-13 15:13 | disposition home or self-care (01) ==
LOC: HO.LAB 15:12
PROVIDERS: PCP Internal Medicine; Visit Provider Student in an Organized Health Care Education/Training Program
DX: M32.12 Pericarditis in systemic lupus erythematosus (principal)
CPT/HCPCS: 36415; 80053; 81001; 84156; 85025; 85652; 86140; 86160; 86225

== ENCOUNTER → 2020-09-18 08:59 | Outpatient (BNVA) | payer BC, SELFPAY | PROVIDERS: PCP Internal Medicine; Visit Provider Student in an Organized Health Care Education/Training Program ==

== ENCOUNTER → 2020-09-24 14:41 | Outpatient (BNVA) | payer BC, SELFPAY | PROVIDERS: Visit Provider Urology ==

== ENCOUNTER → 2020-09-30 08:56 | Outpatient (BNVA) | payer BC, SELFPAY | PROVIDERS: PCP Internal Medicine; Visit Provider Physician Assistant ==

== ENCOUNTER 2020-10-30 13:40 | Outpatient (REF) | payer BC, SELFPAY ==
[2020-11-06 22:03] LABS: HPV mRNA E6/E7 rflx Not Detected (Not Detected)
== END 2020-10-30 13:41 | disposition home or self-care (01) ==
LOC: HO.LAB 13:40
PROVIDERS: Visit Provider Obstetrics & Gynecology
DX: Z01.419 Encounter for gynecological examination (general) (routine) without abnormal findings (principal); Z11.51 Encounter for screening for human papillomavirus (HPV); N87.0 Mild cervical dysplasia
CPT/HCPCS: 87624; 88142

== ENCOUNTER 2020-11-20 07:09 | Day surgery (SDC) | payer BC, SELFPAY ==
[2020-11-14 14:13] VITALS: BMI 31.6
--- NOTE | 2020-11-19 11:10 | HO.ANESPROP2 ---
Documented by User: Simran Bravo NP 11/19/20 11:14 HPI - Anesthesia Eval Consult details Narrative: 44yo F for Right ESWL s/p cysto 08/2020 with GA-LMA 4 SLE with chronic pericarditis. Restarted on colchicine 06/2020 with improvement in chest pain. Follows with cardiology and rheum. No further testing or change in treatment ordered at this time. Chronic opioids Plaquinel for SLE PMFSH Active Problems Active Problems: All Active Problems (Updated 11/14/20 @ 14:03 by Ema Ugarte RN) Encounter for management and injection of depo-Provera (Acute) Transaminitis (Acute) Chronic constipation (Acute) Encounter for general adult medical examination with abnormal findings (Acute) Joint stiffness (Acute) Breast screening (Acute) Cardiomyopathy (Acute) History of pericarditis (Acute) Acute pericarditis (Acute) Right flank pain (Acute) Renal calculi (Acute) Acid reflux (Acute) Menorrhagia (Acute) Chronic constipation (Acute) Environmental allergies (Acute) Well woman exam (Acute) 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 Mother No problems noted. Family history of problems with anesthesia: No Surgical History Surgical History History of biopsy History of cystoscopy History of kidney surgery History of wisdom tooth extraction Hx of tubal ligation History of Problems with Anesthesia: No Social History Social History Household Members: Significant Other and Children Housing: House Are you a primary animal care supervisor to a significant other at home: No Do you presently have visiting nurse or other home services: No Alcohol intake: never Patient Tobacco Use Status: Current someday Tobacco user Tobacco use type: Cigarette Cigarette Packs Per Day: 0 Cigarettes Per Day: 0 Smoked in Last 30 Days: Yes Patient Interested in Nicotine Replacement: No Use of substances other than those prescribed or required for medical reasons: No Have you been hit, kicked, punched, or otherwise hurt by someone within the past year? 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 Allergies Allergy/AdvReac Type Severity Reaction Status Date / Time aspirin Allergy Unknown vomiting, Verified 11/14/20 14:19 GI upset Home Medications Medication Instructions Recorded Confirmed Last Taken Type hydroxychloroquine 200 mg tablet 200 mg PO DAILY 12/05/19 11/14/20 06/17/20 History meclizine 25 mg tablet 25 mg PO DAILY 12/05/19 11/14/20 Unknown History losartan 50 mg tablet 50 mg PO BID tab 12/13/19 11/14/20 06/17/20 History cetirizine 10 mg tablet 1 tab PO DAILY 06/17/20 11/14/20 06/17/20 History fluticasone propionate 50 2 spray INTRANASAL BID 06/17/20 11/14/20 06/17/20 History mcg/actuation nasal spray,suspension Exam Exam Date and Time: November 19, 2020 1110 Height,Weight and Vital Signs: Height 5 ft Weight 73.482 kg Pertinent Lab Results Pertinent Lab Results: Laboratory Tests 09/13/20 09/13/20 15:28 15:28 WBC 7.6 Hgb 13.0 Hct 39.2 Plt Count 219 Sodium 141 Potassium 4.0 Chloride 111 H Carbon Dioxide 23 BUN 16 Creatinine 0.81 Narrative Narrative: Echo 05/2020 Conclusions: -? 1. Mild LV systolic dysfunction with impaired relaxation ? ? filling pattern ? 2. Normal cardiac valvular Doppler? 3. Normal RV systolic pressure? 4. Small circumferential pericardial effusion NM cardiolite stress test 05/2020 Impression: ? 1.? Normal myocardial perfusion 2.? Gated LVEF is 60% 3. Transient ischemic dilatation not present ? Stress EKG is equivocal for ischemia Assessment and Plan Assessment Anesthesia Assessment: Chart Reviewed Final Anesthetic Review Family History of Problems with Anesthesia: No History of Problems with Anesthesia: No Documented by User: Amarilis Reyes MD 11/20/20 09:22 [facility] Past Medical History Medical History Chest pain Dysplasia of cervix, low grade ([place] 1) HTN (hypertension) Kidney stones Lupus Lupus nephritis Pericardial effusion Pericarditis associated with systemic lupus erythematosus RBBB SLE (systemic lupus erythematosus) Family History Family History Father No problems noted. Mother No problems noted. Surgical History Surgical History History of biopsy History of cystoscopy History of kidney surgery History of wisdom tooth extraction Hx of tubal ligation Social History Social History Household Members: Significant Other and Children Housing: House Are you a primary animal care supervisor to a significant other at home: No Do you presently have visiting nurse or other home services: No Alcohol intake: never Patient Tobacco Use Status: Current someday Tobacco user Tobacco use type: Cigarette Cigarette Packs Per Day: 0 Cigarettes Per Day: 0 Smoked in Last 30 Days: Yes Patient Interested in Nicotine Replacement: No Use of substances other than those prescribed or required for medical reasons: No Have you been hit, kicked, punched, or otherwise hurt by someone within the past year? 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 Allergies Allergy/AdvReac Type Severity Reaction Status Date / Time aspirin Allergy Unknown vomiting, Verified 11/14/20 14:19 GI upset Home Medications Medication Instructions Recorded Confirmed Last Taken Type hydroxychloroquine 200 mg tablet 200 mg PO DAILY 12/05/19 11/14/20 06/17/20 History meclizine 25 mg tablet 25 mg PO DAILY 12/05/19 11/14/20 Unknown History losartan 50 mg tablet 50 mg PO BID tab 12/13/19 11/14/20 06/17/20 History cetirizine 10 mg tablet 1 tab PO DAILY 06/17/20 11/14/20 06/17/20 History fluticasone propionate 50 2 spray INTRANASAL BID 06/17/20 11/14/20 06/17/20 History mcg/actuation nasal spray,suspension Exam Airway Mallampati Class: II TM Dist: >3cm Neck ROM: Full Assessment and Plan Final Anesthetic Review NPO: Yes ASA Class: III Patient Risk: Intermediate Procedure Risk: Low Assessment/Block/Sedation in SS: Assess/Block/Sedation-SS Anesthetic Plan Anesthetic Plan: MAC: Disposition: Standard PACU
[2020-11-20] VITALS (7 sets, daily range): BP systolic 97–130; BP diastolic 54–85; PULSE 79–90; RESP 16–20; TEMP 36.3–36.6; O2SAT 97–100
--- NOTE | ~2020-11-20 | XR_ITS ---
EXAMINATION: XR ABDOMEN KUB CLINICAL INDICATION: Renal stone COMPARISON: Renal ultrasound September 09, [address] abdomen pelvis July 12, 2020 TECHNIQUE: Single view, two film KUB of the abdomen was obtained. Overlying stool limits sensitivity for small renal calculi. FINDINGS: Stable size and appearance of the adjacent 5 mm calculi within the midpole of the right kidney. No definitive calcifications project over the left renal shadow. Pelvic calcifications are again noted and likely vascular in nature. Nonobstructive bowel gas pattern. Moderate colonic stool burden. No acute osseous abnormality. XR/XR KUB IMPRESSION: Right renal calculi.
[2020-11-20] MEDS: Acetaminophen 325 MG TABLET 650 MG PO (08:36)
[2020-11-20] MEDS: Lactated Ringers 1,000 ML 50 ML IVCONT (08:46)
--- NOTE | 2020-11-20 08:48 | MHC.SHP ---
Pre-Procedural Eval Section A Date of Service: 11/20/20 Section B Chief Complaint: calculus of kidney Details of Present Illness: right 9mm stone Relevant Social History: None Present Medications: see Short Stay Collaborative assessment Medical History: No relevant PMH History of Previous Operations: Relevant previous surgery/procedure and date(s) Allergies: Allergies Allergy/AdvReac Type Severity Reaction Status Date / Time aspirin Allergy Unknown vomiting, Verified 11/14/20 14:19 GI upset Review of Systems Sugical H&P ROS: Negative: Constitution, Cardiovascular, Respiratory, Neurological, Psychiatric, Hem-Onc, Allergic/Immunologic, Gastrointestinal, Genitourinary, Musculoskeletal, Integumentary, Endocrine and Eyes/Ears/Nose/Throat Exam Surgical H&P Exam: Normal: HEENT, Normal: Heart, Normal: Lungs, Normal: Extremities, Normal: Abdomen, Normal: Skin and Normal: Neurological Plan Diagnosis/Plan: Unchanged (right renal eswl) I have reviewed the history and physical and performed a pertinent physical examination on my patient. No changes have occurred unless specified.
--- NOTE | 2020-11-20 09:44 | W.PM.OPN ---
Operative Note Operative Note Date of Service: 11/20/20 Narrative: PreOperative Diagnosis: right Renal stones Post Operative Diagnosis: right Renal stones Procedure: right ESWL Surgeon: Dr Julio Sutton Anesthesia: mac/sedation Indications for procedure: The patient understands ESWL may be a staged procedure and subsequent intervention may be required based on imaging after ESWL. They also understand there is a risk of bleeding to the kidney, infection, damage to adjacent organs, and stone migration following the procedure. - right 8mm with small side piece Procedure: After informed consent was verified the patient was brought to the operating room and placed in a supine position. Anesthesia was performed per protocol. Safety pause time-out was performed. Imaging was displayed in the room and laterality confirmed. ESWL was performed. The 1st 500 shocks were performed at 60 hertz. These were performed with increasing power. Once maximum power was reached the rate was increased to 180 hertz. A total of 2500 shocks were given. Targeted imaging with ultrasound/fluoroscopy showed stone smudging suggestive of disintegration. The patient tolerated the procedure well and was transferred to the recovery area upon completion. Post procedure imaging will be organized. There was no evidence for flank discoloration.
[2020-11-20] MEDS: fentaNYL citrate/PF 100 MCG/2 ML VIAL 50 MCG IVPUSH ×2 (10:35→10:40)
[2020-11-20] MEDS: oxyCODONE HCl Immed Release 5 MG TABLET PO (10:38)
[2020-11-20] MEDS: Phenazopyridine HCL 100 MG TABLET PO (10:38)
== END 2020-11-20 11:41 ==
LOC: HO.SSS 07:10
PROVIDERS: Visit Provider Urology
PROC: (CPT 50590; principal; 2020-11-20 09:10)
DX: N20.0 Calculus of kidney (principal); Z87.442 Personal history of urinary calculi; M32.14 Glomerular disease in systemic lupus erythematosus; M32.9 Systemic lupus erythematosus, unspecified; M32.12 Pericarditis in systemic lupus erythematosus; I10 Essential (primary) hypertension; I45.10 Unspecified right bundle-branch block; Z79.899 Other long term (current) drug therapy; Z91.09 Other allergy status, other than to drugs and biological substances; F17.210 Nicotine dependence, cigarettes, uncomplicated
CPT/HCPCS: 50590; 74018; J1885; J2250; J2405; J3010

== ENCOUNTER 2020-12-24 13:52 | Outpatient (REF) | payer BC, SELFPAY ==
--- NOTE | ~2020-12-24 | US_ITS ---
EXAMINATION: US RETROPERITONEAL LIMITED (RENAL ONLY) CLINICAL INFORMATION: Calculus of kidney. COMPARISON: KUB dated 11/20/2020. Bilateral renal ultrasound dated 09/09/2020. CT abdomen and pelvis without contrast dated 07/12/2020. Ultrasound abdomen complete dated 03/19/2020. TECHNIQUE: Real-time imaging of the kidneys. FINDINGS: RIGHT KIDNEY: 10 x 4.5 x 6 cm (SAG x AP x TRV). The renal cortex is chronically, diffusely hyperechoic and there is accentuation of the corticomedullary differentiation. The findings of renal cortical nephrocalcinosis are better shown on prior abdominal CT imaging. An echogenic stone in the interpolar area that measures up to approximately 1 cm is similar in size compared to 09/09/2020. There are no obstructing renal stones. LEFT KIDNEY: 12 x 5.3 x 5.5 cm (SAG x AP x TRV). The left kidney is similar in appearance compared to the right kidney. The renal cortex is diffusely hyperechoic and there is accentuation of the corticomedullary differentiation. A lobulated parapelvic cyst with thin septation in the interpolar area measures up to 4.8 cm maximum dimension; it is a Bosniak category 2 cyst. A Bosniak category 2 cyst in the left lower pole measures up to 3.3 cm maximum dimension. Renal imaging follow-up is not recommended for asymptomatic Bosniak category 2 cysts. No evidence of renal stone or hydronephrosis. US/US renal BI IMPRESSION: * A stone of the mid right kidney remains similar in appearance compared to 09/09/2020. No hydronephrosis. * The renal cortex is abnormally hyperechoic, bilaterally, consistent with parenchymal renal disease. The findings of cortical nephrocalcinosis are better depicted on prior abdominal CT imaging. * There are Bosniak category 2 cysts of the mid and lower pole of the left kidney.
== END 2020-12-24 13:53 | disposition home or self-care (01) ==
LOC: HO.US 13:52
PROVIDERS: Visit Provider Urology
DX: N20.0 Calculus of kidney (principal)
CPT/HCPCS: 76775

== ENCOUNTER → 2020-12-31 14:33 | Outpatient (BNVA) | payer BC, SELFPAY | PROVIDERS: PCP Internal Medicine; Referring Provider Internal Medicine; Visit Provider Internal Medicine Cardiovascular Disease | DX: M32.12 Pericarditis in systemic lupus erythematosus (principal); I42.9 Cardiomyopathy, unspecified; R00.2 Palpitations | CPT/HCPCS: 93005 ==

== ENCOUNTER → 2021-02-04 14:59 | Outpatient (REF) | payer BC, SELFPAY ==
--- NOTE | 2021-02-04 15:05 | HM_ITS ---
Conclusion : 1. Patient was monitored for a total period of 3 days and 19 hours 2. Baseline rhythm is NSR with average HR of 102 bpm 3. Frequent sinus tachycardia noted with 52% of time HR > 100 bpm 4. Very rare PACs noted 5. No patient reported events MTDD
== END ==
LOC: HO.CARD 14:59
PROVIDERS: PCP Internal Medicine; Visit Provider Internal Medicine Cardiovascular Disease
DX: I42.9 Cardiomyopathy, unspecified (principal)
CPT/HCPCS: 93242

== ENCOUNTER → 2021-04-02 14:31 | Outpatient (BNVA) | payer BC, SELFPAY | PROVIDERS: PCP Internal Medicine; Visit Provider Physician Assistant ==

== ENCOUNTER 2021-05-02 08:35 | Outpatient (REF) | payer BC, SELFPAY ==
--- NOTE | ~2021-05-02 | XR_ITS ---
EXAMINATION: XR ABDOMEN KUB CLINICAL INDICATION: Kidney stone COMPARISON: Previous renal ultrasound and KUB from 2020 TECHNIQUE: AP view of the abdomen. FINDINGS: Evaluation for renal stone is limited due to overlying bowel gas. The previously identified right renal stone is not appreciated. There are bilateral pelvic calcifications that appear stable and probably represent calcified phleboliths. There is stool throughout the colon. Bony structures are unremarkable. XR/XR KUB IMPRESSION: Limited evaluation for renal stone due to overlying bowel gas. No definite renal stone appreciated. Stable pelvic calcifications probably representing calcified phleboliths.
== END 2021-05-02 08:36 | disposition home or self-care (01) ==
LOC: HO.LAB 08:35
PROVIDERS: PCP Internal Medicine
DX: N20.0 Calculus of kidney (principal); N39.0 Urinary tract infection, site not specified
CPT/HCPCS: 74018; 87086; 87088; 87186

== ENCOUNTER 2021-07-01 14:19 | Outpatient (REF) | payer BC, SELFPAY ==
--- NOTE | ~2021-07-01 | US_ITS ---
EXAMINATION: US RETROPERITONEAL LIMITED (RENAL ONLY) CLINICAL INFORMATION: Calculus of kidney. COMPARISON: CT abdomen pelvis 07/04/2020. Ultrasound renal 12/24/2020 TECHNIQUE: Real-time imaging of the kidneys. FINDINGS: RIGHT KIDNEY: 10.4 x 5.1 x 5.8 cm (SAG x AP x TRV). Echogenic renal parenchyma with cortical thinning. No renal calculi or hydronephrosis. 9 mm nonobstructing mid pole renal stone similar to prior previously 1 cm. LEFT KIDNEY: 11.3 x 5.7 x 3.7 cm (SAG x AP x TRV). Echogenic renal parenchyma with cortical thinning. No renal calculi or hydronephrosis. Benign-appearing and likely benign appearing renal cysts one with a thin barely perceptible septation measuring up to 4.3 cm, no routine follow up imaging recommended. US/US renal BI IMPRESSION: Echogenic kidneys with cortical thinning which may reflect sequelae of chronic medical renal disease. Similar 0.9 cm nonobstructing right midpole renal stone.
== END 2021-07-01 14:20 | disposition home or self-care (01) ==
LOC: HO.US 14:19
PROVIDERS: PCP Internal Medicine
DX: N20.0 Calculus of kidney (principal)
CPT/HCPCS: 76775

== ENCOUNTER → 2021-08-04 14:05 | Outpatient (REF) | payer BC, SELFPAY ==
--- NOTE | 2021-08-04 14:12 | CA_ITS ---
Transthoracic Echocardiogram Patient (Last, First, Middle): Nery Joseph, Gender: Female Date of : 1975 Age: 45 Procedure Date: 08/04/2021 Procedure Type: Transthoracic Echocardiogram Location: OP Height: 152.4 cm Weight: 70.76 kg BSA: 1.68 m2 Heart Rate: 95 bpm BP: 136 / 60 mmHg Vamp Presser: OSORIO Referring MD: Jose Morataya MD Belt Builder: Jose Morataya MD Symptoms: I42.9 - Cardiomyopathy, unspecified Study Quality: Fair ECG Rhythm: Sinus Conclusions: - 1. Normal LV systolic function with impaired relaxation filling pattern 2. Normal cardiac valvular Doppler 3. Normal RV systolic pressure 4. Small pericardial effusion Findings Left Ventricle Normal left ventricular size, thickness, and systolic function. The visually estimated ejection fraction is between 55-60%. Spectral Doppler is indicative of an impaired relaxation filling pattern. E/E prime ratio is between 8 and 15 consistent with indeterminate filling pressures. Right Ventricle Normal right ventricular cavity size and systolic function. Atria The left atrium is normal in size. Interatrial shunt cannot be excluded. The right atrium is normal in size. Aortic Valve Normal aortic valve structure and function. There is no aortic valve stenosis. There is no aortic valve regurgitation. Mitral Valve Likely normal mitral valve structure and function. There is trace mitral valve regurgitation. There is no mitral valve stenosis. Pulmonic Valve The pulmonic valve was not well visualized. Tricuspid Valve Likely normal tricuspid valve structure and function. There is mild tricuspid valve regurgitation. The right ventricular systolic pressure is normal. The right ventricular systolic pressure is 24 mmHg. Normal right atrial pressure. There is no evidence of pulmonary hypertension. Great Vessels All visible segments of the aorta are normal in size. The pulmonary artery was not well visualized. Venous The inferior vena cava is normal in size and collapses greater than 50% with inspiration. Pericardium/Pleural There is a small circumferential pericardial effusion. Prior Study Comparison Changes noted compared to prior study dated: 08/23/2020. LV systolic function appears to be normal on this study Measurements 2D Linear Measurements IVSd: 0.91 0.6-0.9/0.6-1.0 cm LVIDd: 4.00 3.9-5.3/4.2-5.9 cm LVIDd Index: 2.38 2.4-3.2/2.2-3.1 cm/m2 LVIDs: 2.78 2.0-3.6 cm LVPWd: 0.66 0.7-1.1 cm LA Diam: 3.40 2.7-3.8/3.0-4.0 cm LAIDs Index: 2.02 1.5-2.3 cm/m2 LV Mass: 113.65 67-162/88-224 g LV Mass Index: 67.65 43-95/49-115 g/m2 LVOT Diam: 2.00 3.0+(-)1.3 cm 2D Systolic Function EF 2C: 56.90 >55% Mitral Valve MV Pk E: 0.69 MV PK A: 0.79 MV Decel Time: 134.00 E/A: 0.90 E'Lateral: 5.55 E'Medial: 4.24 E/E' Med: 16.40 E/E' Lat: 12.50 PHT: 39.00 MVA PHT: 5.64 Decel Tyrrell: 5.16 Aortic Valve AoV Pk Raffi: 1.17 AoV Pk Grad: 5.00 LVOT LVOT Pk Raffi: 1.07 LVOT Mn Raffi: 0.67 LVOT VTI: 0.19 LVOT Pk Grad: 5.00 LVOT Mn Grad: 2.00 LVOT Diam: 2.00 LVOT Area: 3.14 Diastolic Function MV Pk E: 0.69 MV Pk A: 0.79 E/A: 0.90 E'Medial: 4.24 E/E' Med: 16.40 E' Laterial: 5.55 E/E' Lat: 12.50 Right Ventricle TAPSE (mm): 11.70 TVS' Raffi: 11.40 Tricuspid Valve TR Pk Raffi: 2.30 TR Pk Grad: 21.00 RA Press: 3.00 RVSP: 24.00 Great Vessels Aorta Sinus of Valsalva: 2.70 2.0-3.5 cm Ao Asc: 3.00 2.1-3.4 cm Ao Arch: 2.00 Ao Desc: 1.80 Pulmonary Veins Pulm Vein S/D 1.60 Pulmonary Valve PV Pk Raffi: 0.89 Peak PV Grad: 3.00 Updated in Other Vendor System with Status of Final Jose Morataya MD electronically signed on 08/04/2021 4:17:47 PM with status of Final
== END ==
LOC: HO.CARD 14:05
PROVIDERS: PCP Internal Medicine; Visit Provider Internal Medicine Cardiovascular Disease
DX: I42.9 Cardiomyopathy, unspecified (principal)
CPT/HCPCS: 93306

== ENCOUNTER 2021-08-12 14:45 | Outpatient (REF) | payer BC, SELFPAY ==
[2021-08-15 11:46] LABS: H Pylori Breath Test Negative (Negative)
== END 2021-08-12 14:46 | disposition home or self-care (01) ==
LOC: HO.LNP 14:45
PROVIDERS: Visit Provider Physician Assistant
DX: A04.8 Other specified bacterial intestinal infections (principal)
CPT/HCPCS: 83013

== ENCOUNTER 2021-09-01 07:49 | Outpatient (REF) | payer BC, SELFPAY ==
--- NOTE | ~2021-09-01 | MM_ITS ---
EXAMINATION: MM SCREENING DIGITAL BREAST TOMOSYNTHESIS, BILATERAL CLINICAL INFORMATION: Screening. Asymptomatic. The lifetime risk of breast cancer based on the Tyrer-Cuzick Model is 7%. COMPARISON: Mammography: 07/30/2020, 08/28/2019, 07/09/2018 TECHNIQUE: Digital breast tomosynthesis is performed in both the craniocaudal and mediolateral oblique views along with computer-aided detection (CAD). Synthesized 2D images are generated from the tomosynthesis. Additional right MLO view is provided. FINDINGS: There are scattered areas of fibroglandular density (ACR BI-RADS breast composition Category b). There are no significant masses, abnormal calcifications, or other abnormalities. Breast tissue composition borders on heterogeneously dense. Parenchymal pattern is similar to prior exams. No developing density. Axillary nodes are stable. Skin contours are smooth. No significant changes. MM/MM tomosynthesis screening BI IMPRESSION: No mammographic evidence of malignancy. ASSESSMENT: BI-RADS 2: Benign RECOMMENDATION: Routine annual mammography screening. This patient's information was entered into a reminder system with a target due date for their next mammogram.
== END 2021-09-01 07:50 | disposition home or self-care (01) ==
LOC: HO.MAMMO 07:49
PROVIDERS: Visit Provider Internal Medicine
DX: Z12.31 Encounter for screening mammogram for malignant neoplasm of breast (principal)
CPT/HCPCS: 77063; 77067

== ENCOUNTER 2021-10-13 14:05 | Outpatient (REF) | payer BC, SELFPAY ==
[2021-10-13 14:27] LABS: MANUAL DIFF FLAG NO
[2021-10-13 15:04] LABS: Basophils Percent Auto 0.4 % (0-2); Eosinophils Absolute Auto 0.1 X10*3/uL (0.0-0.4); Eosinophils Percent Auto 1.1 % (0-4); Hematocrit 39.6 % (37.0-47.0); Hemoglobin 13.5 g/dl (12.0-16.0); Imm Gran Abs Auto 0.04 X10*3/uL (0.00-0.03); Imm Gran Pct Auto 0.5 % (0.0-0.4); Lymphocytes Absolute Auto 2.1 X10*3/uL (1.2-4.9); Lymphocytes Percent Auto 24.5 % (20-40); Mean Corpuscular HGB Conc 34.1 g/dl (31.0-35.0); Mean Corpuscular Hemoglobin 30.4 pg (27.0-33.0); Mean Corpuscular Volume 89.2 fL (80.0-98.0); Mean Platelet Volume 11.4 fL (9.4-12.3); Monocytes Absolute Auto 0.5 X10*3/uL (0.1-1.2); Monocytes Percent Auto 6.2 % (2-11); Neutrophils Absolute Auto 5.8 x10*3/uL (2.0-8.3); Neutrophils Percent Auto 67.3 % (45-73); Platelet Count 237 X10*3/uL (160-400); Red Blood Count 4.44 X10*6/uL (4.20-5.50); Red Cell Distribution Width 13.2 % (11.0-16.0); White Blood Count 8.6 X10*3/uL (4.8-10.8)
[2021-10-13 15:37] LABS: Alanine Aminotransferase 19 U/L (0-31); Albumin Level 3.8 g/dL (3.5-5.0); Alkaline Phosphatase 93 U/L (39-117); Anion Gap 11 (12-20); Aspartate Amino Transferase 18 U/L (5-31); Bilirubin Total 0.4 mg/dL (0.0-1.0); Blood Urea Nitrogen 16 mg/dL (9-16); Calcium 9.4 mg/dL (8.4-10.2); Carbon Dioxide 26 mmol/L (22-29); Chloride 106 mmol/L (96-108); Estimated Glomerular Filt Rate > 60; Glucose Random 63 mg/dL (60-115); Potassium 4.1 mmol/L (3.3-5.1); Sodium 139 mmol/L (135-145)
[2021-10-13 15:49] LABS: Thyroid Stimulating Hormone 7.09 uIU/mL (0.32-4.0)
[2021-10-13 15:54] LABS: Syphilis Screen Nonreactive (Nonreactive)
[2021-10-13 15:59] LABS: TSH reflex Free T4 7.16 uIU/mL (0.32-4.0)
[2021-10-13 16:34] LABS: Free T4 (Free Thyroxine) 0.69 ng/dL (0.71-1.85)
[2021-10-14 04:36] LABS: HBS Num1 29.54 mIU/mL (0-7.99); HIV AB/AG Nonreactive (Nonreactive); HIV Num 1 0.11 S/CO (0.00-0.99); ~HepC Num1 0.07 S/CO (0.00-0.79); ~Hepatitis B Surface Antibody REACTIVE (Nonreactive); ~Hepatitis C Antibody Nonreactive (Nonreactive)
[2021-10-17 14:42] LABS: Vitamin D 25-OH, D2 <4 ng/mL; Vitamin D 25-OH, D3 32 ng/mL; Vitamin D 25-OH, Total 32 ng/mL (30-100)
== END 2021-10-13 14:06 | disposition home or self-care (01) ==
LOC: HO.LAB 14:05
PROVIDERS: PCP Internal Medicine; Visit Provider Physician Assistant
DX: Z00.01 Encounter for general adult medical examination with abnormal findings (principal); Z11.4 Encounter for screening for human immunodeficiency virus [HIV]; Z11.3 Encounter for screening for infections with a predominantly sexual mode of transmission; K59.09 Other constipation; M32.14 Glomerular disease in systemic lupus erythematosus; M32.9 Systemic lupus erythematosus, unspecified; K58.9 Irritable bowel syndrome, unspecified; I10 Essential (primary) hypertension
CPT/HCPCS: 36415; 80053; 82306; 84439; 84443; 85025; 86695; 86696; 86706; 86780; 86803; 87389

== ENCOUNTER 2021-11-04 07:30 | Outpatient (REF) | payer BC, SELFPAY ==
--- NOTE | ~2021-11-04 | XR_ITS ---
EXAMINATION: XR SHOULDER, LEFT CLINICAL INFORMATION: Pain. COMPARISON: None TECHNIQUE: AP external rotation, Grashey, scapular Y, and axillary views of the left shoulder. FINDINGS: The bones and soft tissues are normal. No fracture. Glenohumeral and acromioclavicular alignment is anatomic with normal joint space. No abnormal soft tissue calcifications. XR/XR shoulder LT min 2V IMPRESSION: Unremarkable left shoulder.
== END 2021-11-04 07:31 | disposition home or self-care (01) ==
LOC: HO.HOSX 07:30
PROVIDERS: Visit Provider Physician Assistant
DX: M25.512 Pain in left shoulder (principal)
CPT/HCPCS: 73030

== ENCOUNTER 2021-12-03 13:43 | Emergency (ER) | payer BC, SELFPAY ==
--- NOTE | ~2021-12-03 | US_ITS ---
EXAMINATION: US PELVIS CLINICAL INFORMATION: Vaginal bleeding COMPARISON: CT abdomen pelvis 07/12/2020 and pelvic ultrasound 07/20/2013 TECHNIQUE: Ultrasound of the pelvis is performed using both transabdominal and transvaginal transducers along with Doppler. Transvaginal imaging is performed due to inadequate visualization transabdominally. FINDINGS: Uterus: The uterus is anteverted and measures 8.1 x 4.3 x 4.5 cm. The double wall endometrial thickness is 0.5 mm. The uterus is smooth in contour and has normal myometrial echogenicity. No visible fibroid. Adnexa: Both ovaries are visualized. There is normal color flow to the adnexa. There is no ovarian torsion. Right ovary measures 3.9 x 1.9 x 2.3 cm for volume of 8.9 mL which includes a 2.7 x 1.3 x 1.9 cm cyst. This cyst has a single septation. A paraovarian cyst is seen measuring 1.5 cm. Left ovary measures 4.6 x 2.0 x 3.7 cm for a volume of 17.8 mL which includes 2 cysts the largest measuring 2.4 x 1.8 x 2.6 cm. There is a small amount of free fluid in the cul-de-sac US/US pelvic and transvaginal IMPRESSION: Normal-appearing uterus. Bilateral ovarian cysts.
[2021-12-03 15:53] VITALS: BP 154/85; PULSE 87; RESP 18; TEMP 37.1; O2SAT 100; BMI 31.2
[2021-12-03 19:25] LABS: MANUAL DIFF FLAG NO
[2021-12-03 19:27] LABS: Basophils Percent Auto 0.2 % (0-2); Eosinophils Absolute Auto 0.1 X10*3/uL (0.0-0.4); Eosinophils Percent Auto 1.3 % (0-4); Hematocrit 37.4 % (37.0-47.0); Hemoglobin 12.9 g/dl (12.0-16.0); Imm Gran Abs Auto 0.02 X10*3/uL (0.00-0.03); Imm Gran Pct Auto 0.2 % (0.0-0.4); Lymphocytes Absolute Auto 2.6 X10*3/uL (1.2-4.9); Lymphocytes Percent Auto 32.3 % (20-40); Mean Corpuscular HGB Conc 34.5 g/dl (31.0-35.0); Mean Corpuscular Hemoglobin 30.4 pg (27.0-33.0); Mean Corpuscular Volume 88.2 fL (80.0-98.0); Mean Platelet Volume 10.6 fL (9.4-12.3); Monocytes Absolute Auto 0.5 X10*3/uL (0.1-1.2); Monocytes Percent Auto 6.5 % (2-11); Neutrophils Absolute Auto 4.9 x10*3/uL (2.0-8.3); Neutrophils Percent Auto 59.5 % (45-73); Platelet Count 231 X10*3/uL (160-400); Red Blood Count 4.24 X10*6/uL (4.20-5.50); Red Cell Distribution Width 13.2 % (11.0-16.0); White Blood Count 8.2 X10*3/uL (4.8-10.8)
[2021-12-03 19:29] LABS: Appearance Urine Clear; Color Urine Yellow; Glucose Urine UA Negative (Negative); Leukocyte Esterase Urine Trace (Negative); Nitrite Urine Negative (Negative); Specific Gravity - Urine 1.015 (1.005-1.025); UMIC TRIGGER UACC YES; Urine Blood Large (3+) (Negative); Urine Ketones Negative (Negative); Urine Protein 100 (2+) mg/dL (Neg-Trace)
[2021-12-03 19:31] LABS: UPreg QC Valid YES; Urine Pregnancy NEGATIVE (NEGATIVE)
[2021-12-03 19:33] LABS: Bacteria Urine None Seen (None Seen); Hyaline Casts Urine 0-2 /LPF (0-2); RBC Urine >20 /HPF (0-2); Squamous Epithelial Cell Urine 0-2 /HPF (0-2); WBC Urine 0-5 /HPF (0-5)
[2021-12-03 19:42] LABS: COVID-19 Test Negative (Negative)
[2021-12-03 19:42] LABS: Alanine Aminotransferase 25 U/L (0-31); Albumin Level 3.9 g/dL (3.5-5.0); Alkaline Phosphatase 86 U/L (39-117); Anion Gap 13 (12-20); Aspartate Amino Transferase 23 U/L (5-31); Bilirubin Direct < 0.2 mg/dL (0.0-0.5); Bilirubin Total 0.3 mg/dL (0.0-1.0); Blood Urea Nitrogen 13 mg/dL (9-16); Calcium 8.8 mg/dL (8.4-10.2); Carbon Dioxide 23 mmol/L (22-29); Chloride 107 mmol/L (96-108); Creatinine Clr Calc Pharmacy 79.4; Estimated Glomerular Filt Rate > 60; Glucose Random 86 mg/dL (60-115); Lipase 21 U/L (8-78); Potassium 3.7 mmol/L (3.3-5.1); Sodium 139 mmol/L (135-145)
[2021-12-03 23:25] VITALS: BP 152/84; PULSE 79; RESP 15; TEMP 36.8; O2SAT 100
--- NOTE | 2021-12-03 23:31 | ED_ITS ---
HPI - General Chief complaint: Vaginal Bleeding Stated complaint: vaginal bleeding 14 days Time Seen by Provider: 12/03/21 23:12 Source: patient Mode of arrival: ambulatory Limitations: no limitations History of Present Illness HPI Narrative: 46-year-old female who presents with vaginal bleeding for the last 15 days. Patient tells me since stopping her Depo approximately 6 months ago she has had heavy and irregular bleeding. She was able to see her O/print project manager 3 weeks ago for her annual exam and Pap smear but she canceled this due to having some bleeding. She reports the last 15 days she has had heavy vaginal bleeding with clots and some lower abdominal cramping. At times she may bleed through more than 1 pad an 1 hour. She is sexually active with 1 male partner. Does not use condoms. He is not a new partner Related Data Home Medications Medication Instructions Recorded Confirmed losartan 50 mg tablet 50 mg PO BID 12/13/19 09/23/21 fluticasone propionate 50 2 spray intranasal BID 06/17/20 09/23/21 mcg/actuation nasal spray,suspension cetirizine 10 mg tablet 10 mg PO DAILY 08/12/21 09/23/21 Previous Rx's Medication Instructions Recorded meclizine 25 mg tablet 25 mg PO DAILY #10 tabs 05/27/21 pyridoxine (vitamin B6) 100 mg 100 mg PO DAILY #90 tabs 06/03/21 tablet omeprazole 20 mg capsule,delayed 20 mg PO DAILY #30 caps 08/11/21 release bisoprolol fumarate 5 mg tablet 2.5 mg PO DAILY #30 tabs 08/12/21 tramadol 50 mg tablet 50 mg PO BID PRN pain 15 days #30 09/23/21 tabs docusate sodium 100 mg capsule 200 mg PO BEDTIME #60 caps 10/13/21 (Colace) methylcellulose (laxative) 500 mg 500 mg PO BID #60 tabs 10/13/21 tablet (Citrucel) levothyroxine 50 mcg tablet 50 mcg PO DAILY 90 days #90 tabs 10/14/21 colchicine 0.6 mg tablet 0.6 mg PO DAILY #90 tabs 11/17/21 bisacodyl 5 mg tablet,delayed 10 mg PO ONCE colonoscopy prep 1 12/01/21 release (Dulcolax (bisacodyl)) day #2 tabs polyethylene glycol 3350 17 238 g PO ONCE 1 day #238 grams 12/01/21 gram/dose oral powder (Miralax) Allergies Allergy/AdvReac Type Severity Reaction Status Date / Time aspirin Allergy Unknown vomiting, Verified 12/01/21 13:42 GI upset Review of Systems Review of Systems: Yes all other systems are reviewed and are negative Constitutional: Constitutional: Reports no additional constitutional complaints, Denies body ache(s), Denies chills, Denies fever(s), Denies headache(s) and Denies weakness Eyes: Eyes: Reports no additional eye complaints and Denies change in vision ENT: Reports system reviewed and no additional complaints, except as documented, Denies dizziness, Denies headache(s), Denies nasal congestion, Denies nasal discharge and Denies neck pain Cardiovascular: Cardiovascular: Reports no additional cardiovascular complaints, Denies chest pain, Denies leg edema and Denies dyspnea Respiratory: Respiratory: Reports no additional respiratory complaints, Denies cough and Denies dyspnea Gastrointestinal: Gastrointestinal: Reports no additional gastrointestinal complaints, Denies abdominal pain, Denies diarrhea, Denies nausea and Denies vomiting Genitourinary: Genitourinary: Reports no additional female genitourinary complaints, Reports abnormal vaginal bleeding, Reports pelvic pain and Denies urinary incontinence Musculoskeletal: Musculoskeletal: Reports no additional musculoskeletal complaints, Denies back pain, Denies arthralgias, Denies joint swelling, Denies neck pain, Denies numbness and Denies tingling Integumentary/Breasts: Skin/Breast: Reports system reviewed and no additional complaints, except as docu and Denies rash Neurologic: Reports system reviewed and no additional complaints, except as documented, Denies Abnormal speech present, Denies dizziness, Denies headache(s), Denies numbness, Denies tingling and Denies weakness [facility] Past Medical History Attestation statement: The following information was validated with the patient. Source: old records reviewed and nursing notes reviewed Medical History Dysplasia of cervix, low grade ([place] 1) HTN (hypertension) Hypothyroid Kidney stones Lupus Lupus nephritis Pericardial effusion Pericardial effusion Pericarditis associated with systemic lupus erythematosus RBBB SLE (systemic lupus erythematosus) SLE (systemic lupus erythematosus) UTI (urinary tract infection) Surgical History History of biopsy History of cystoscopy History of kidney surgery History of wisdom tooth extraction Hx of tubal ligation Family History Family History Father No problems noted. Mother No problems noted. 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 Cognitive needs: No Hearing needs: No Vision needs: Yes Physical Exam Vital Signs: Vital Signs: Last Vital Signs Temp 98.3 F 12/03/21 23:25 Pulse 79 12/03/21 23:25 Resp 15 12/03/21 23:25 BP 152/84 H 12/03/21 23:25 Pulse Ox 100 12/03/21 23:25 O2 Del Method 12/03/21 23:25 BMI result Body Mass Index 31.2 Const: General: cooperative, healthy appearing, comfortable and no acute distress Orientation/consciousness: patient oriented x3 Limitations: no limitations HEENT: Head: Yes normal to inspection Ears: hearing grossly normal bilaterally General nose exam: Normal external nose present Face and sinus: Yes normal facial exam Mouth: Normal oral and palatal mucosa present Throat: Yes posterior oropharynx normal Eyes: General: appearance normal, both eyes and all related structures Pupils: Equal, round and reactive pupils present Neck: Neck: Yes normal visual inspection Chest: Chest palpation & inspection: normal inspection of the chest Resp: Effort & Inspection: normal respiratory effort Auscultation: clear to auscultation bilaterally Cardio: Rate: regular rate Rhythm: regular rhythm Peripheral pulses: Peripheral pulses 2+ throughout GI: Inspection: Yes normal to inspection Palpation (GI): Soft to palpation and nontender Auscultation: normal bowel sounds : 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 External Female Exam: normal external appearance Speculum Exam - Vagina: normal appearance of the vagina and vaginal bleeding (small) Speculum Exam - Cervix: normal appearance of the cervix Bimanual exam- vagina & uterus: normal bimanual exam and no cervical motion tenderness Bimanual Exam- Adnexa, other: normal adnexae and no tenderness OB/external & speculum: vaginal bleeding (small) Back/Spine/Pelvis: Thoracic/Lumbar Spine: thoracic and lumbar spine normal to inspection Skin: General skin exam: no rashes or lesions noted Neuro: General: patient oriented x3, no focal motor deficits and normal sensation to monofilament Cranial nerves: Yes Equal, round and reactive pupils present Cognition (Neuro): normal cognition Speech: No Abnormal speech present Gait exam (Neuro): Normal gait present Motor exam (neuro): 5/5 motor strength present throughout Extrem: General: Yes normal to inspection Course Course Course Narrative: Labs are unremarkable. The patient's pelvic exam shows small amount of bleeding. Her ultrasound is negative for any uterine fibroid or abnormality. Patient has had intermittent irregular and heavy bleeding for the last 6 after being discontinued from her Depo shot. She can follow up outpatient with her wildlife conservation professor. I did review worrisome signs and symptoms of when to return to the emergency room. Comfortable plan for discharge home. MDM - OB/Uterine Contractions MDM Narrative Medical decision making narrative: 46-year-old female here with heavy and irregular bleeding intermittently over the last 6 months now constant for the last 15 days with some cramping. Will check labs, UA, urine , pelvic ultrasound pelvic exam. Considered DUB, uterine fibroid, pregnacy/ectopic Medical Records Attestation: I reviewed the patient's medical records. Lab Data Attestation: I reviewed the patient's lab results. Result diagrams: 12/03/21 19:21 12/03/21 19:21 Labs: Lab Results 12/03/21 12/03/21 12/03/21 Range/Units 19:15 19:16 19:16 WBC (4.8-10.8) X10*3/uL RBC (4.20-5.50) X10*6/uL Hgb (12.0-16.0) g/dl Hct (37.0-47.0) % MCV (80.0-98.0) fL MCH (27.0-33.0) pg MCHC (31.0-35.0) g/dl RDW (11.0-16.0) % Plt Count (160-400) X10*3/uL MPV (9.4-12.3) fL Immature Gran % (Auto) (0.0-0.4) % Neut % (Auto) (45-73) % Lymph % (Auto) (20-40) % [place] % (Auto) (2-11) % Eos % (Auto) (0-4) % Baso % (Auto) (0-2) % Lymph # (Auto) (1.2-4.9) X10*3/uL [place] # (Auto) (0.1-1.2) X10*3/uL Eos # (Auto) (0.0-0.4) X10*3/uL Baso # (Auto) (0.0-0.2) X10*3/uL Abs Immat Gran (auto) (0.00-0.03) X10*3/uL Absolute Neuts (auto) (2.0-8.3) x10*3/uL Absolute Nucleated RBC (0.0-0.012) X10*3/uL Nucleated RBC % (auto) (0.0-0.2) /100WBC Sodium (135-145) mmol/L Potassium (3.3-5.1) mmol/L Chloride (96-108) mmol/L Carbon Dioxide (22-29) mmol/L Anion Gap (12-20) BUN (9-16) mg/dL Creatinine (0.5-1.4) mg/dL Estim Creat Clear Calc Estimated GFR Random Glucose (60-115) mg/dL Calcium (8.4-10.2) mg/dL Total Bilirubin (0.0-1.0) mg/dL Direct Bilirubin (0.0-0.5) mg/dL AST (5-31) U/L ALT (0-31) U/L Alkaline Phosphatase (39-117) U/L Total Protein (6.5-8.0) g/dL Albumin (3.5-5.0) g/dL Lipase (8-78) U/L Urine Color Yellow Urine Appearance Clear Urine pH 6.0 (5.0-9.0) Ur Specific [place] 1.015 (1.005-1.025) Urine Protein 100 (2+) H (Neg-Trace) mg/dL Urine Glucose (UA) Negative (Negative) mg/dL Urine Ketones Negative (Negative) mg/dL Urine Blood Large (3+) H (Negative) Urine Nitrite Negative (Negative) Ur Leukocyte Esterase Trace H (Negative) Urine RBC >20 H (0-2) /HPF Urine WBC 0-5 (0-5) /HPF Ur Squamous Epith Cells 0-2 (0-2) /HPF Urine Bacteria None Seen (None Seen) Hyaline Casts 0-2 (0-2) /LPF Urine Test NEGATIVE (NEGATIVE) COVID-19 ([facility]) Negative (Negative) COVID-19 Clin Com See Note 12/03/21 12/03/21 Range/Units 19:21 19:21 WBC 8.2 (4.8-10.8) X10*3/uL RBC 4.24 (4.20-5.50) X10*6/uL Hgb 12.9 (12.0-16.0) g/dl Hct 37.4 (37.0-47.0) % MCV 88.2 (80.0-98.0) fL MCH 30.4 (27.0-33.0) pg MCHC 34.5 (31.0-35.0) g/dl RDW 13.2 (11.0-16.0) % Plt Count 231 (160-400) X10*3/uL MPV 10.6 (9.4-12.3) fL Immature Gran % (Auto) 0.2 (0.0-0.4) % Neut % (Auto) 59.5 (45-73) % Lymph % (Auto) 32.3 (20-40) % [place] % (Auto) 6.5 (2-11) % Eos % (Auto) 1.3 (0-4) % Baso % (Auto) 0.2 (0-2) % Lymph # (Auto) 2.6 (1.2-4.9) X10*3/uL [place] # (Auto) 0.5 (0.1-1.2) X10*3/uL Eos # (Auto) 0.1 (0.0-0.4) X10*3/uL Baso # (Auto) 0.0 (0.0-0.2) X10*3/uL Abs Immat Gran (auto) 0.02 (0.00-0.03) X10*3/uL Absolute Neuts (auto) 4.9 (2.0-8.3) x10*3/uL Absolute Nucleated RBC 0.000 (0.0-0.012) X10*3/uL Nucleated RBC % (auto) 0.0 (0.0-0.2) /100WBC Sodium 139 (135-145) mmol/L Potassium 3.7 (3.3-5.1) mmol/L Chloride 107 (96-108) mmol/L Carbon Dioxide 23 (22-29) mmol/L Anion Gap 13 (12-20) BUN 13 (9-16) mg/dL Creatinine 0.77 (0.5-1.4) mg/dL Estim Creat Clear Calc 79.4 Estimated GFR > 60 Random Glucose 86 (60-115) mg/dL Calcium 8.8 D (8.4-10.2) mg/dL Total Bilirubin 0.3 (0.0-1.0) mg/dL Direct Bilirubin < 0.2 (0.0-0.5) mg/dL AST 23 (5-31) U/L ALT 25 (0-31) U/L Alkaline Phosphatase 86 (39-117) U/L Total Protein 7.0 (6.5-8.0) g/dL Albumin 3.9 (3.5-5.0) g/dL Lipase 21 (8-78) U/L Urine Color Urine Appearance Urine pH (5.0-9.0) Ur Specific [place] (1.005-1.025) Urine Protein (Neg-Trace) mg/dL Urine Glucose (UA) (Negative) mg/dL Urine Ketones (Negative) mg/dL Urine Blood (Negative) Urine Nitrite (Negative) Ur Leukocyte Esterase (Negative) Urine RBC (0-2) /HPF Urine WBC (0-5) /HPF Ur Squamous Epith Cells (0-2) /HPF Urine Bacteria (None Seen) Hyaline Casts (0-2) /LPF Urine Test (NEGATIVE) COVID-19 ([facility]) (Negative) COVID-19 Clin Com Imaging Data pelvic US: Attestation: I personally reviewed and interpreted this imaging study as follows: Radiologist's impression: Ultrasound of the pelvis is performed using both transabdominal and transvaginal transducers along with Doppler. Transvaginal imaging is performed due to inadequate visualization transabdominally. FINDINGS: Uterus: The uterus is anteverted and measures 8.1 x 4.3 x 4.5 cm. The double wall endometrial thickness is 0.5 mm.? The uterus is smooth in contour and has normal myometrial echogenicity. ? No visible fibroid. Adnexa: Both ovaries are visualized. There is normal color flow to the adnexa. There is no ovarian torsion. Right ovary measures 3.9 x 1.9 x 2.3 cm for volume of 8.9 mL which includes a 2.7 x 1.3 x 1.9 cm cyst. This cyst has a single septation. A paraovarian cyst is seen measuring 1.5 cm. Left ovary measures 4.6 x 2.0 x 3.7 cm for a volume of 17.8 mL which includes 2 cysts the largest measuring 2.4 x 1.8 x 2.6 cm. There is a small amount of free fluid in the cul-de-sac US/US pelvic and transvaginal IMPRESSION: Normal-appearing uterus. Bilateral ovarian cysts. ? Discharge Plan Discharge Clinical Impression: Dysfunctional uterine bleeding Patient Disposition: Home, Self-Care Instructions: Dysfunctional Uterine Bleeding (ED) Additional Instructions: Your blood work looks stable Follow-up with your OBGYN Return for worsening bleeding, pain, fever Prescriptions: No Action pyridoxine (vitamin B6) 100 mg tablet 100 mg PO DAILY Qty: 90 3RF levothyroxine 50 mcg tablet 50 mcg PO DAILY 90 Days Qty: 90 0RF colchicine 0.6 mg tablet 0.6 mg PO DAILY Qty: 90 1RF fluticasone propionate 50 mcg/actuation spray,suspension 2 spray intranasal BID cetirizine 10 mg tablet 10 mg PO DAILY tramadol 50 mg tablet 50 mg PO BID PRN (Reason: pain) 15 Days Qty: 30 0RF meclizine 25 mg tablet 25 mg PO DAILY Qty: 10 0RF losartan 50 mg tablet 50 mg PO BID Citrucel 500 mg tablet 500 mg PO BID Qty: 60 5RF docusate sodium [Colace] 100 mg capsule 200 mg PO BEDTIME Qty: 60 5RF bisacodyl [Dulcolax (bisacodyl)] 5 mg tablet,delayed release (DR/EC) 10 mg PO ONCE 1 Days Qty: 2 0RF Rx Instructions: Take 2 tablets by mouth at 12:00pm the day before your procedure. polyethylene glycol 3350 [Miralax] 17 gram/dose powder 238 g PO ONCE 1 Days Qty: 238 0RF Rx Instructions: Take as directed by mouth the day before your procedure. bisoprolol fumarate 5 mg tablet 2.5 mg PO DAILY Qty: 30 5RF omeprazole 20 mg capsule,delayed release(DR/EC) 20 mg PO DAILY Qty: 30 5RF Referrals: Bryant Alejandra MD [Primary Care Provider] - 1 week (as needed)
== END 2021-12-04 01:17 | disposition home or self-care (01) ==
PROVIDERS: Emergency Provider Emergency Medicine; PCP Internal Medicine
DX: N93.8 Other specified abnormal uterine and vaginal bleeding (principal); Z20.822 Contact with and (suspected) exposure to COVID-19; I10 Essential (primary) hypertension; M32.9 Systemic lupus erythematosus, unspecified; Z79.899 Other long term (current) drug therapy
CPT/HCPCS: 76830; 76856; 80053; 81001; 81025; 82248; 83690; 85025; 87635; 99283; 99284

== ENCOUNTER 2021-12-10 08:30 | Outpatient (REF) | payer BC, SELFPAY ==
[2021-12-10 09:49] LABS: TSH reflex Free T4 3.96 uIU/mL (0.32-4.0)
== END 2021-12-10 08:31 | disposition home or self-care (01) ==
LOC: HO.LAB 08:30
PROVIDERS: PCP Internal Medicine; Visit Provider Internal Medicine
DX: E03.8 Other specified hypothyroidism (principal)
CPT/HCPCS: 36415; 84443

== ENCOUNTER 2022-01-14 11:56 | Outpatient (REF) | payer BC, SELFPAY | END 2022-01-14 11:57 | disposition home or self-care (01) | LOC: HO.LNP 11:56 | PROVIDERS: Visit Provider Obstetrics & Gynecology | DX: Z13.89 Encounter for screening for other disorder (principal) ==

== ENCOUNTER 2022-01-14 11:57 | Outpatient (REF) | payer BC, SELFPAY ==
[2022-01-14 16:33] LABS: CT PCR NOT DETECTED (Not Detect.); NG PCR NOT DETECTED (Not Detect.)
[2022-01-15 10:19] LABS: CA-125 14 U/mL (<35)
== END 2022-01-14 11:58 | disposition home or self-care (01) ==
LOC: HO.LAB 11:57
PROVIDERS: PCP Internal Medicine; Visit Provider Obstetrics & Gynecology
DX: Z11.3 Encounter for screening for infections with a predominantly sexual mode of transmission (principal); N83.299 Other ovarian cyst, unspecified side; N93.9 Abnormal uterine and vaginal bleeding, unspecified
CPT/HCPCS: 86304; 87491; 87591

== ENCOUNTER 2022-01-21 04:31 | Emergency (ER) | payer BC, SELFPAY ==
--- NOTE | ~2022-01-21 | XR_ITS ---
EXAMINATION: XR CHEST CLINICAL INFORMATION: Chest pain. COMPARISON: Chest radiograph 06/17/2020. TECHNIQUE: Frontal view of the chest was obtained. FINDINGS: Normal appearance of the cardiomediastinal structures. No effusions or pneumothoraces. No focal pulmonary consolidation. Normal pattern of pulmonary vasculature. XR/XR chest 1V IMPRESSION: No acute cardiopulmonary abnormalities.
[2022-01-21 04:32] VITALS: BP 146/88; PULSE 93; RESP 18; TEMP 36.1; O2SAT 98; BMI 30.4
--- NOTE | 2022-01-21 04:35 | ECG_ITS ---
Test Reason : CHEST PAIN Blood Pressure : / mmHG Vent. Rate : 091 BPM Atrial Rate : 091 BPM P-R Int : 152 ms QRS Dur : 122 ms QT Int : 386 ms P-R-T Axes : 036 -18 017 degrees QTc Int : 474 ms Normal sinus rhythm Right bundle branch block Abnormal ECG When compared to the previous EKG of No significant changes seen Referred By: Generic ED Physician Electronically Signed By:PHILIP AUSTIN MD
[2022-01-21 04:54] LABS: Basophils Percent Auto 0.4 % (0-2); Eosinophils Absolute Auto 0.1 X10*3/uL (0.0-0.4); Hematocrit 37.8 % (37.0-47.0); Hemoglobin 12.9 g/dl (12.0-16.0); Imm Gran Abs Auto 0.02 X10*3/uL (0.00-0.03); Imm Gran Pct Auto 0.3 % (0.0-0.4); Lymphocytes Absolute Auto 2.4 X10*3/uL (1.2-4.9); Lymphocytes Percent Auto 31.5 % (20-40); MANUAL DIFF FLAG NO; Mean Corpuscular HGB Conc 34.1 g/dl (31.0-35.0); Mean Corpuscular Hemoglobin 29.9 pg (27.0-33.0); Mean Corpuscular Volume 87.5 fL (80.0-98.0); Mean Platelet Volume 10.5 fL (9.4-12.3); Monocytes Absolute Auto 0.4 X10*3/uL (0.1-1.2); Monocytes Percent Auto 5.5 % (2-11); Neutrophils Absolute Auto 4.7 x10*3/uL (2.0-8.3); Neutrophils Percent Auto 61.3 % (45-73); Platelet Count 223 X10*3/uL (160-400); Red Blood Count 4.32 X10*6/uL (4.20-5.50); Red Cell Distribution Width 12.8 % (11.0-16.0); White Blood Count 7.6 X10*3/uL (4.8-10.8)
[2022-01-21 05:07] LABS: Anion Gap 11 (12-20); Blood Urea Nitrogen 16 mg/dL (9-16); Calcium 8.7 mg/dL (8.4-10.2); Carbon Dioxide 23 mmol/L (22-29); Chloride 109 mmol/L (96-108); Creatinine Clr Calc Pharmacy 80.5; Estimated Glomerular Filt Rate > 60; Glucose Random 96 mg/dL (60-115); Potassium 3.7 mmol/L (3.3-5.1); Sodium 139 mmol/L (135-145)
[2022-01-21 05:16] LABS: Troponin-I High Sensitivity 34.7 ng/L (<3.5-17.0)
[2022-01-21 06:00] VITALS: BP 151/87; PULSE 81; RESP 25; TEMP 36.6; O2SAT 100
[2022-01-21 07:22] VITALS: BP 138/74; PULSE 84; RESP 16; TEMP 36.8; O2SAT 97
--- NOTE | 2022-01-21 08:23 | ED_ITS ---
HPI - Chest Pain General Chief Complaint: Chest Pain Stated Complaint: chest pain Time Seen by Provider: 01/21/22 08:21 Source: patient Mode of arrival: ambulatory Limitations: no limitations History of Present Illness HPI narrative: Nery is a 46 yo female with a pertinent PMHx of cardiomyopathy, pericarditis, hypertension, and lupus who presents to the emergency department with a CC of 3 days of sharp, pleuritic chest pain localized to the left side of her chest that she rates as an 5/10. She says it has been constant for the last 3 days and denies radiation. She first noticed the pain while she was at work. She has tried Ibuprofen for the pain but this has not helped. She indicates that laying down and taking a deep breath makes it worse. She additionally endorses headache, dizziness, and weakness, but denies fevers, chills, shortness of breath, nausea, vomiting, diarrhea, constipation, or urinary changes. She says that these symptoms have happened several times before and were caused by pericarditis, which she believes is what is causing her symptoms today. MD complaint: chest pain Pertinent past history: other (pericarditis) Onset (ago): day(s) (3) Timing of current episode: constant Prior episodes: Yes Onset: during exertion Pain location: left chest Pain radiation: none Severity: moderate Pain scale (0-10): 5 Quality: sharp Relieving factors: nothing Exacerbating factors: inspiration and palpation Context: other (hx of lupus, recent viral illness 3 weeks ago) Treatment prior to arrival: none Risk Factors Coronary artery disease risk factors: smoking history (currently vapes) Related Data Home Medications Medication Instructions Recorded Confirmed losartan 50 mg tablet 50 mg PO BID 12/13/19 09/23/21 fluticasone propionate 50 2 spray intranasal BID 06/17/20 09/23/21 mcg/actuation nasal spray,suspension cetirizine 10 mg tablet 10 mg PO DAILY 08/12/21 09/23/21 Previous Rx's Medication Instructions Recorded meclizine 25 mg tablet 25 mg PO DAILY #10 tabs 05/27/21 pyridoxine (vitamin B6) 100 mg 100 mg PO DAILY #90 tabs 06/03/21 tablet omeprazole 20 mg capsule,delayed 20 mg PO DAILY #30 caps 08/11/21 release bisoprolol fumarate 5 mg tablet 2.5 mg PO DAILY #30 tabs 08/12/21 tramadol 50 mg tablet 50 mg PO BID PRN pain 15 days #30 09/23/21 tabs docusate sodium 100 mg capsule 200 mg PO BEDTIME #60 caps 10/13/21 (Colace) methylcellulose (laxative) 500 mg 500 mg PO BID #60 tabs 10/13/21 tablet (Citrucel) levothyroxine 50 mcg tablet 50 mcg PO DAILY 90 days #90 tabs 10/14/21 colchicine 0.6 mg tablet 0.6 mg PO DAILY #90 tabs 11/17/21 bisacodyl 5 mg tablet,delayed 10 mg PO ONCE colonoscopy prep 1 12/01/21 release (Dulcolax (bisacodyl)) day #2 tabs polyethylene glycol 3350 17 238 g PO ONCE 1 day #238 grams 12/01/21 gram/dose oral powder (Miralax) prednisone 20 mg tablet 20 mg PO DAILY 7 days #7 tabs 01/21/22 Allergies Allergy/AdvReac Type Severity Reaction Status Date / Time aspirin Allergy Unknown vomiting, Verified 01/21/22 04:35 GI upset Review of Systems Constitutional: Constitutional: Reports no additional constitutional complaints, Denies chills, Denies fever(s), Reports headache(s), Denies night sweats and Reports weakness Eyes: Eyes: Reports no additional eye complaints, Denies blurry vision, Denies change in vision, Denies diplopia, Denies eye discharge, Denies loss of vision and Denies eye pain ENT: Reports dizziness and Reports headache(s) Cardiovascular: Cardiovascular: Reports no additional cardiovascular complaints, Reports chest pain, Denies lightheadedness, Denies Loss of Consciousness and Denies dyspnea Respiratory: Respiratory: Reports no additional respiratory complaints and Denies dyspnea Gastrointestinal: Gastrointestinal: Reports no additional gastrointestinal complaints, Denies abdominal pain, Denies melena, Denies hematochezia, Denies change in bowel habits and Denies change in stool character Genitourinary: Genitourinary: Denies hematuria, Denies urinary frequency, Denies dysuria, Denies urinary incontinence, Denies urinary hesitancy and Denies urinary urgency Musculoskeletal: Musculoskeletal: Reports no additional musculoskeletal complaints, Denies numbness and Denies tingling Neurologic: Reports dizziness, Reports headache(s), Denies loss of vision, Denies numbness, Denies tingling and Reports weakness Psychiatric: Psychiatric: Reports no additional psychiatric complaints Endocrine: Endocrine: Reports no additional endocrine complaints Hematologic/Lymphatic: Hematologic/Lymphatic: Reports no additional hematologic/lymphatic complaints Allergic/Immunologic: Allergic/Immunologic: Reports no additional allergic/immunologic complaints PMFSH Past Medical History Attestation statement: The following information was validated with the patient. Source: old records reviewed and nursing notes reviewed Medical History Dysplasia of cervix, low grade ([place] 1) HTN (hypertension) Hypothyroid Kidney stones Lupus Lupus nephritis Pericardial effusion Pericardial effusion Pericarditis associated with systemic lupus erythematosus RBBB SLE (systemic lupus erythematosus) SLE (systemic lupus erythematosus) UTI (urinary tract infection) Surgical History History of biopsy History of cystoscopy History of kidney surgery History of wisdom tooth extraction Hx of tubal ligation Family History Family History Father No problems noted. Mother No problems noted. 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 Cognitive needs: No Hearing needs: No Vision needs: Yes Physical Exam Vital Signs: Vital Signs: Last Vital Signs Temp 98.3 F 01/21/22 07: Pulse 81 01/21/22 11:10 Resp 13 01/21/22 11:10 BP 134/74 01/21/22 11:10 Pulse Ox 100 01/21/22 11:10 O2 Del Method 01/21/22 11:10 BMI result Body Mass Index 30.4 Const: General: cooperative, no acute distress, alert and awake Nutritional Appearance: well nourished Orientation/consciousness: patient oriented x3 Limitations: no limitations HEENT: Head: Yes normal to inspection and Yes atraumatic Ears: hearing grossly normal bilaterally and external ears normal General nose exam: Normal external nose present, no nasal discharge noted and no epistaxis Face and sinus: Yes normal facial exam, No abrasion and No laceration Mouth: Normal oral and palatal mucosa present, no drooling and no muffled voice Eyes: General: appearance normal, both eyes and all related structures Periorbital: periorbital findings normal Eyelids: Yes eyelids normal Conjunctivae: conjunctivae normal Pupils: Equal, round and reactive pupils present EOM: EOMs intact bilaterally Neck: Neck: Yes normal visual inspection, Yes full ROM and Yes no lymphadenopathy Chest: Chest palpation & inspection: normal inspection of the chest and tenderness Resp: Effort & Inspection: normal respiratory effort and able to speak in complete sentences Auscultation: clear to auscultation bilaterally Cardio: Rate: regular rate Rhythm: regular rhythm Heart sounds: S1 no rmal heart sound present and S2 normal heart sound present GI: Inspection: Yes normal to inspection Neuro: General: patient oriented x3 and moves all extremities Cranial nerves: Yes Equal, round and reactive pupils present Cognition (Neuro): normal cognition Motor exam (neuro): 5/5 motor strength present throughout Sensory Exam: Normal double simultaneous stimulation for sensation Coordination: [id number] test normal Extrem: General: Yes normal to inspection, Yes full ROM and Yes capillary refi ll normal Psych: Appearance: grossly normal Mental Status: mental status grossly normal Affect: normal affect Attitude: cooperative Thought process: Normal thought process present Thought content: Normal thought content present Insight: Good insight present (Psych) Course Course Course Narrative: Nery is a 46yo female with a PMHx of cardiomyopathy, pericarditis, hypertension and lupus that presents to the ED with a CC of 3 days of chest pain, headache, dizziness, and weakness. PE is notable for chest tenderness on palpation. No edema or JVD noted. PE otherwise unremarkable. Patient currently takes cholchine. Reevaluation(s) Reevaluation #1: 9:00 Troponin elevated to 34.7 at 4:49. W reorder lab. CBC and rest of chemistry WNL. Chest x-ray no acute cardiopulmonary abnormalities, no effusions, no focal pulm onary consolidation. Reevaluation #2: 9:37 Troponin elevated to 53.9, cardiology interprets elevation related to pericarditis. Medical Decision Making Medical Decision Making [facility] Narrative: Patient is a 46 year old assigned female at with a history of cardiomyopathy, pericarditis, hypertension, and lupus presenting to the emergency department today with left sided chest pain. Patient's physical exam was unremarkable. Patient's blood work showed an initial troponin of 34.7 with a repeat of 53.9. Patient's EKG was unremarkable. Patient's chest x-ray showed no acute process. I spoke to the racking technician inspection and testing supervisor who states that the patient is likely experiencing another episode of pericarditis. He recommended doubling the patients colchicine dose to 0.6mg BID and starting her on a short course of oral steroids. He also recommended the patient follow up with her credit control officer. I explained my physical exam findings as well as all test results to the patient. I answered all questions asked by the patient. I stressed the importance of the patient taking her medication as prescribed. I stressed the importance of the patient following up with her primary care provider, credit control officer, and racking technician. I stressed the importance of the patient returning to the emergency department immediately if her symptoms were to worsen or if she were to develop any dizziness, shortness of breath, difficulty breathing, chest pain, blurry vision, loss of vision, nausea, vomiting, abdominal pain, fever, chills, back pain, or any other complaints. Patient verbalized agreement and understanding with this treatment plan and discharge. Differential Diagnoses: Differential diagnosis Differential Diagnosis: The differential diagnosis associated with the patient?s presentation includes:VT, pericarditis, chest wall pain Discussion of management with other physician/healthcare provider/other source (e.g., hospitalist, insurance consultant, behavioral health): Discussion w/other physician/healthcare provider Management of the patient was discussed with: Adjunct Philosophy Faculty (racking technician) Recommended colchicine be changed to 0.6mg BID and given a short course of oral steroids with instructions to follow up with her credit control officer. Lab Attestation: I reviewed the patient's lab results. Independent interpretation of EKG, rhythm strip, radiology study: Independent interp EKG,rhythm strip, radiology study I performed an independent interpretation of the: EKG This EKG was interpreted by Dr. Rafia Tate. Rate: 091 BPM ? ? Atrial Rate: 091 BPM P-R Int: 152 ms? QRS Dur: 122 ms QT Int: 386 ms ? ? ? P-R-T Axes: 036 -18 017 degrees QTc Int: 474 ms ? Normal sinus rhythm Right bundle branch block Abnormal ECG When compared to the previous EKG of No significant changes seen ? Electronically Signed By:JOSE AUSTIN MD Dictated By: Jose Austin MD Signed By: Electronically signed by Jose Austin MD 01/21/22 0856 Discussion of test interpretation with radiology: Discussion of test interpretation with radiology These results were not discussed with the radiologist however this is their impression of the study per their written report. EXAMINATION: XR CHEST CLINICAL INFORMATION: Chest pain. COMPARISON: Chest radiograph 06/17/2020. TECHNIQUE: Frontal view of the chest was obtained. FINDINGS: Normal appearance of the cardiomediastinal structures. No effusions or pneumothoraces. No focal pulmonary consolidation. Normal pattern of pulmonary vasculature. XR/XR chest 1V IMPRESSION: No acute cardiopulmonary abnormalities. Dictated By: Norris Robertson MD Signed By: Electronically signed by Norris Robertson MD 01/21/22 0557 Discharge Plan Discharge Clinical Impression: Acute pericarditis Patient Disposition: Home, Self-Care Instructions: Acute Pericarditis (ED) Additional Instructions: Begin taking your colchicine twice a day. Follow up with your primary care provider, credit control officer, and your racking technician. Return to the emergency department immediately if your symptoms worsen or if you develop any dizziness, shortness of breath, difficulty breathing, chest pain, blurry vision, loss of vision, nausea, vomiting, abdominal pain, fever, chills, back pain, or any other complaints. Prescriptions: New prednisone 20 mg tablet 20 mg PO DAILY 7 Days Qty: 7 0RF No Action pyridoxine (vitamin B6) 100 mg tablet 100 mg PO DAILY Qty: 90 3RF levothyroxine 50 mcg tablet 50 mcg PO DAILY 90 Days Qty: 90 0RF colchicine 0.6 mg tablet 0.6 mg PO DAILY Qty: 90 1RF fluticasone propionate 50 mcg/actuation spray,suspension 2 spray intranasal BID cetirizine 10 mg tablet 10 mg PO DAILY tramadol 50 mg tablet 50 mg PO BID PRN (Reason: pain) 15 Days Qty: 30 0RF meclizine 25 mg tablet 25 mg PO DAILY Qty: 10 0RF losartan 50 mg tablet 50 mg PO BID Citrucel 500 mg tablet 500 mg PO BID Qty: 60 5RF docusate sodium [Colace] 100 mg capsule 200 mg PO BEDTIME Qty: 60 5RF bisacodyl [Dulcolax (bisacodyl)] 5 mg tablet,delayed release (DR/EC) 10 mg PO ONCE 1 Days Qty: 2 0RF Rx Instructions: Take 2 tablets by mouth at 12:00pm the day before your procedure. polyethylene glycol 3350 [Miralax] 17 gram/dose powder 238 g PO ONCE 1 Days Qty: 238 0RF Rx Instructions: Take as directed by mouth the day before your procedure. bisoprolol fumarate 5 mg tablet 2.5 mg PO DAILY Qty: 30 5RF omeprazole 20 mg capsule,delayed release(DR/EC) 20 mg PO DAILY Qty: 30 5RF Referrals: Bryant Alejandra MD [Primary Care Provider] - Interventions: ED Discharge Assessment Last Done: 01/21/22 11:47 Discharge Date/Time: 01/21/22 11:52 Print Language: [place]i
[2022-01-21 09:24] LABS: Alanine Aminotransferase 20 U/L (0-31); Albumin Level 3.6 g/dL (3.5-5.0); Alkaline Phosphatase 94 U/L (39-117); Aspartate Amino Transferase 19 U/L (5-31); Bilirubin Direct < 0.2 mg/dL (0.0-0.5); Bilirubin Total 0.2 mg/dL (0.0-1.0); Magnesium 1.7 mg/dL (1.6-2.6); Total Protein 6.5 g/dL (6.5-8.0)
[2022-01-21 10:05] VITALS: BP 142/83; PULSE 81; RESP 16; O2SAT 100
[2022-01-21 10:09] LABS: Troponin-I High Sensitivity 53.9 ng/L (<3.5-17.0)
[2022-01-21 10:28] LABS: COVID-19 Test Negative (Negative); IDNOW Serial# 16C4AD1C
[2022-01-21 10:50] LABS: C Reactive Protein 0.22 mg/dL (< or = 0.50)
[2022-01-21 11:10] VITALS: BP 134/74; PULSE 81; RESP 13; O2SAT 100
--- NOTE | 2022-01-21 11:12 | PC.NURSE ---
pt a&ox3, vss, pt denies chest pain/sob at this time, reporting 8/10 headache and occ dizziness. no new orders at this time.
[2022-01-21 11:25] LABS: Erythrocyte Sedimentation Rate 14 MM/HR (0-20)
[2022-01-21 11:46] LABS: Influenza A PCR NEGATIVE (Negative); Influenza B PCR NEGATIVE (Negative); Resp Syncy Virus RNA Qual PCR NEGATIVE (Negative); SARS COV2 PCR INHOUSE NEGATIVE (Negative)
== END 2022-01-21 11:52 | disposition home or self-care (01) ==
PROVIDERS: Physician Assistant Medical; Emergency Provider Emergency Medicine Emergency Medical Services; PCP Internal Medicine
DX: I31.9 Disease of pericardium, unspecified (principal); R07.89 Other chest pain; I10 Essential (primary) hypertension; Z20.822 Contact with and (suspected) exposure to COVID-19; Z79.899 Other long term (current) drug therapy
CPT/HCPCS: 0241U; 36415; 71045; 80048; 80076; 83735; 84484; 85025; 85652; 86140; 87635; 93005; 99283; 99284

== ENCOUNTER 2022-02-20 09:10 | Outpatient (REF) | payer BC, SELFPAY ==
--- NOTE | ~2022-02-20 | XR_ITS ---
EXAMINATION: XR CHEST CLINICAL INFORMATION: Cough COMPARISON: 01/21/2022 TECHNIQUE: 2 views of the chest were obtained. FINDINGS: Lungs are clear. No focal consolidation or mass. Normal pulmonary vascularity. No pleural effusion or pneumothorax. Normal heart size. No acute osseous abnormality. XR/XR chest 2V IMPRESSION: No acute pulmonary disease.
== END 2022-02-20 09:11 | disposition home or self-care (01) ==
LOC: HO.XRAY 09:10
PROVIDERS: PCP Internal Medicine; Visit Provider Internal Medicine
DX: R05.9 Cough, unspecified (principal)
CPT/HCPCS: 71046

== ENCOUNTER 2022-02-23 08:07 | Outpatient (REF) | payer BC, SELFPAY | END 2022-02-23 08:08 | disposition home or self-care (01) | LOC: HO.LNP 08:07 | PROVIDERS: PCP Internal Medicine; Visit Provider Obstetrics & Gynecology | DX: N93.9 Abnormal uterine and vaginal bleeding, unspecified (principal) | CPT/HCPCS: 58100; 81025; 88305 ==

== ENCOUNTER 2022-03-13 20:10 | Emergency (ER) | payer BC, SELFPAY ==
--- NOTE | ~2022-03-13 | CT_ITS ---
EXAMINATION: CT ABDOMEN AND PELVIS WITHOUT CONTRAST CLINICAL INFORMATION: Right flank pain. History of stones. COMPARISON: None TECHNIQUE: Multidetector volumetric imaging was performed from the superior aspect of the liver through the pubic symphysis. Sagittal and coronal reformatted images were obtained on the technologist's workstation. This CT examination was performed using dose optimization techniques as appropriate, variously including the following: *Automated exposure control *Adjustment of mA and/or kV according to patient size (this includes techniques or standardized protocols for targeted exams where dose is matched to indication/reason for exam; i.e. extremities or head) *Use of iterative reconstruction technique DLP: 556 mGy-cm FINDINGS: LUNG BASES: The visualized lung bases are unremarkable. LIVER, GALLBLADDER, AND BILIARY TREE: The liver is normal in size, shape, and attenuation. No focal hepatic lesion or biliary ductal dilatation is present. The gallbladder is unremarkable with no evidence of radiopaque gallstones, gallbladder wall thickening, or obvious pericholecystic inflammatory changes. PANCREAS: Unremarkable. SPLEEN: Unremarkable. ADRENAL GLANDS: Unremarkable. KIDNEYS AND URETERS: The kidneys are normal in size, shape, and attenuation. Both kidney cortices are hyperdense. There are left renal cysts. High density calcified costello. The largest cyst in the upper/ midpole measures 3.6 x 3.2 cm and lower pole and measures 3.7 x 3.3 cm. There is a nonobstructive 4 mm radiopaque calculi lower pole left kidney. There is no hydronephrosis. BLADDER: Unremarkable. GASTROINTESTINAL TRACT: There is scattered stool and gas seen throughout the colon without distention. Few scattered diverticuli seen in colon. The small bowel loops are normal caliber. Appendix is not visualized. The stomach is distended with recently ingested food. No free air or free fluid seen. ABDOMINAL WALL: No significant hernia is appreciated. LYMPH NODES: Normal. VASCULAR: Unremarkable. PELVIC VISCERA: Unremarkable. OSSEOUS STRUCTURES: Unremarkable. CT/CT abdomen pelvis wo IV con IMPRESSION: Slightly hyperdense appearing bilateral kidney cortex with left renal cysts. The cyst have a calcified or hyperdense wall suggestive of Bosniak type II. Nonobstructive 4 mm radiopaque calculi lower pole left kidney. No caliectasis or hydronephrosis seen. Mild constipation. Fleischner guidelines were followed.
--- NOTE | 2022-03-13 20:27 | ED.GENADULT ---
HPI - General Adult General Chief complaint: Back Pain/Injury <BEN Broderick - Last Filed: 03/13/22 20:29> Stated complaint: kidney stones <BEN Broderick - Last Filed: 03/13/22 20:29> Time Seen by Provider: 03/13/22 21:30 <BEN Broderick - Last Filed: 03/13/22 20:29> Source: patient <Cristi Clarke MD - Last Filed: 03/14/22 00:10> Mode of arrival: ambulatory <Cristi Clarke MD - Last Filed: 03/14/22 00:10> Limitations: no limitations <Cristi Clarke MD - Last Filed: 03/14/22 00:10> History of Present Illness HPI narrative: Patient history of kidney stones for lithotripsy complaining of pain in right flank area for last 3 days got worse today with nausea no hematuria no dysuria no fever or chills pain is localized to the right flank with slight radiation to the right lower abdomen <Cristi Clarke MD - Last Filed: 03/14/22 00:10> Related Data Home medications: Home Medications Medication Instructions Recorded Confirmed losartan 50 mg tablet 50 mg PO BID 12/13/19 02/23/22 fluticasone propionate 50 2 spray intranasal BID 06/17/20 02/23/22 mcg/actuation nasal spray,suspension cetirizine 10 mg tablet 10 mg PO DAILY 08/12/21 02/23/22 Previous Rx's Medication Instructions Recorded meclizine 25 mg tablet 25 mg PO DAILY #10 tabs 05/27/21 pyridoxine (vitamin B6) 100 mg 100 mg PO DAILY #90 tabs 06/03/21 tablet omeprazole 20 mg capsule,delayed 20 mg PO DAILY #30 caps 08/11/21 release bisoprolol fumarate 5 mg tablet 2.5 mg PO DAILY #30 tabs 08/12/21 docusate sodium 100 mg capsule 200 mg PO BEDTIME #60 caps 10/13/21 (Colace) methylcellulose (laxative) 500 mg 500 mg PO BID #60 tabs 10/13/21 tablet (Citrucel) levothyroxine 50 mcg tablet 50 mcg PO DAILY 90 days #90 tabs 10/14/21 colchicine 0.6 mg tablet 0.6 mg PO DAILY #90 tabs 11/17/21 bisacodyl 5 mg tablet,delayed 10 mg PO ONCE colonoscopy prep 1 12/01/21 release (Dulcolax (bisacodyl)) day #2 tabs polyethylene glycol 3350 17 238 g PO ONCE 1 day #238 grams 12/01/21 gram/dose oral powder (Miralax) dextromethorphan polistirex 30 10 ml PO Q12H PRN cough 10 days 02/20/22 mg/5 mL oral susp ext.release 12hr #89 mL (Delsym 12 hour) oxycodone 5 mg tablet 5 mg PO Q6H PRN pain #20 tabs 03/14/22 <BEN Broderick - Last Filed: 03/13/22 20:29> Allergies/adverse reactions: Allergies Allergy/AdvReac Type Severity Reaction Status Date / Time aspirin Allergy Unknown vomiting, Verified 03/13/22 20:32 GI upset <BEN Broderick - Last Filed: 03/13/22 20:29> Review of Systems Review of Systems: Yes all other systems are reviewed and are negative <Cristi Clarke MD - Last Filed: 03/14/22 00:10> FOR[facility]LY [facility], [facility] Past Medical History Medical History: Medical History Dysplasia of cervix, low grade ([place] 1) HTN (hypertension) Hypothyroid Kidney stones Lupus Lupus nephritis Pericardial effusion Pericardial effusion Pericarditis associated with systemic lupus erythematosus RBBB SLE (systemic lupus erythematosus) SLE (systemic lupus erythematosus) UTI (urinary tract infection) <BEN Broderick - Last Filed: 03/13/22 20:29> Surgical History: Surgical History History of biopsy History of cystoscopy History of kidney surgery History of wisdom tooth extraction Hx of tubal ligation <BEN Broderick - Last Filed: 03/13/22 20:29> Family History Family History: Family History Father No problems noted. Mother No problems noted. <BEN Broderick - Last Filed: 03/13/22 20:29> Social History Social History: Social History Household Members: Significant Other and Children Housing: House Are you a primary career education teacher to a significant other at home: No Do you presently have visiting nurse or other home services: No Alcohol intake: never Patient Tobacco Use Status: Current someday Tobacco user Tobacco use type: Cigarette Cigarette Packs Per Day: 0 Cigarettes Per Day: 0 e-Cigarette/Vaping Use: Never Used Advance Directives: No Advance Directives Information Provided: No Patient : No service: No Current occupational status: employed 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, 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 Cognitive needs: No Hearing needs: No Vision needs: Yes <BEN Broderick - Last Filed: 03/13/22 20:29> Physical Exam ED Vital Signs: Vital Signs - 24 hr 03/13/22 20:29 03/13/22 22:41 03/13/22 22:43 Temperature 97.8 F Pulse Rate 94 94 Respiratory Rate 18 20 20 Blood Pressure 144/85 H 130/86 Pulse Oximetry 98 99 Oxygen Delivery Method Room Air Room Air BMI result Body Mass Index 31.2 <BEN Broderick - Last Filed: 03/13/22 20:29> Vital Signs - 24 hr 03/13/22 20:29 03/13/22 22:41 03/13/22 22:43 Temperature 97.8 F Pulse Rate 94 94 Respiratory Rate 18 20 20 Blood Pressure 144/85 H 130/86 Pulse Oximetry 98 99 Oxygen Delivery Method Room Air Room Air BMI result Body Mass Index 31.2 <Cristi Clarke MD - Last Filed: 03/14/22 00:10> Appearance: Alert. Oriented X3. mild distress. Eyes: PERRLA, No Nystagmus ENT: Pharynx normal. Oral Mucosa moist Neck: Normal inspection. Neck supple. CVS: Normal heart rate and rhythm. Pulses normal. Respiratory: No respiratory distress. Equal air entry bilateral, no wheezing/rales/rhonchi Abdomen: Soft and nontender. Bowel sounds are present, no mass palpable,R CVA tenderness Skin: Skin warm and dry. Normal skin color. Normal skin turgor. Extremities: No lower extremity edema. No calf tenderness Neuro: Oriented X 3. No motor deficit. No sensory deficit.No cerebellar signs , cranial nerves II-XII intact <Cristi Clarke MD - Last Filed: 03/14/22 00:10> Course Course Course Narrative: RME performed by Aileen Link PA-C. Patient is a 46 year old female presenting to the emergency department with right flank pain. Patient states that she has a history of kidney stones, both requiring surgery by Dr. Sutton, and this is a similar feeling. Labs and UA ordered. Patient placed back in waiting room pending results and room availability. <BEN Broderick - Last Filed: 03/13/22 20:29> Medications Administered Discontinued Medications Generic Name Dose Route Start Last Admin Trade Name Freq PRN Reason Stop Dose Admin Sodium Chloride 1,000 mls @ 999 mls/hr 03/13/22 21:57 03/13/22 22:36 Ns IV 03/13/22 22:57 999 mls/hr .Q1H1M ONE Administration Ketorolac Tromethamine 30 mg 03/13/22 21:56 03/13/22 22:39 Ketorolac Tromethamine 30 Mg/Ml Vial IVPUSH 03/13/22 21:57 30 mg ONCE ONE Administration Morphine Sulfate 4 mg 03/13/22 21:56 03/13/22 22:41 Morphine Sulfate 4 Mg/Ml Cartridge IVPUSH 03/13/22 21:57 4 mg ONCE ONE Administration Protocol Morphine Sulfate 4 mg 03/13/22 23:16 03/13/22 23:28 Morphine Sulfate 4 Mg/Ml Cartridge IVPUSH 03/13/22 23:17 4 mg ONCE ONE Administration Protocol Ondansetron HCl 4 mg 03/13/22 21:56 03/13/22 22:38 Ondansetron Hcl 4 Mg/2 Ml Vial IVPUSH 03/13/22 21:57 4 mg ONCE ONE Administration <BEN Broderick - Last Filed: 03/13/22 20:29> Medications Administered Discontinued Medications Generic Name Dose Route Start Last Admin Trade Name Freq PRN Reason Stop Dose Admin Sodium Chloride 1,000 mls @ 999 mls/hr 03/13/22 21:57 03/13/22 22:36 Ns IV 03/13/22 22:57 999 mls/hr .Q1H1M ONE Administration Ketorolac Tromethamine 30 mg 03/13/22 21:56 03/13/22 22:39 Ketorolac Tromethamine 30 Mg/Ml Vial IVPUSH 03/13/22 21:57 30 mg ONCE ONE Administration Morphine Sulfate 4 mg 03/13/22 21:56 03/13/22 22:41 Morphine Sulfate 4 Mg/Ml Cartridge IVPUSH 03/13/22 21:57 4 mg ONCE ONE Administration Protocol Morphine Sulfate 4 mg 03/13/22 23:16 03/13/22 23:28 Morphine Sulfate 4 Mg/Ml Cartridge IVPUSH 03/13/22 23:17 4 mg ONCE ONE Administration Protocol Ondansetron HCl 4 mg 03/13/22 21:56 03/13/22 22:38 Ondansetron Hcl 4 Mg/2 Ml Vial IVPUSH 03/13/22 21:57 4 mg ONCE ONE Administration <Cristi Clarke MD - Last Filed: 03/14/22 00:10> Medical Decision Making Medical Decision Making MDM Narrative: Patient with nonobstructive right kidney stone 4 mm calculus in the kidney no hydronephrosis feel comfortable after IV pain medication discharge patient home advised to follow-up with urologist <Cristi Clarke MD - Last Filed: 03/14/22 00:10> Lab Data MDM Lab Attestation statement: I reviewed the patient's lab results. <Cristi Clarke MD - Last Filed: 03/14/22 00:10> Result Diagrams: 03/13/22 20:55 03/13/22 20:55 <BEN Broderick - Last Filed: 03/13/22 20:29> Labs: Lab Results 03/13/22 03/13/22 03/13/22 Range/Units 20:55 20:55 21:31 WBC 7.5 (4.8-10.8) X10*3/uL RBC 4.37 (4.20-5.50) X10*6/uL Hgb 12.9 (12.0-16.0) g/dl Hct 38.4 (37.0-47.0) % MCV 87.9 (80.0-98.0) fL MCH 29.5 (27.0-33.0) pg MCHC 33.6 (31.0-35.0) g/dl RDW 13.1 (11.0-16.0) % Plt Count 227 (160-400) X10*3/uL MPV 10.9 (9.4-12.3) fL Immature Gran % (Auto) 0.3 (0.0-0.4) % Neut % (Auto) 51.8 (45-73) % Lymph % (Auto) 39.1 (20-40) % [place] % (Auto) 6.8 (2-11) % Eos % (Auto) 1.6 (0-4) % Baso % (Auto) 0.4 (0-2) % Lymph # (Auto) 2.9 (1.2-4.9) X10*3/uL [place] # (Auto) 0.5 (0.1-1.2) X10*3/uL Eos # (Auto) 0.1 (0.0-0.4) X10*3/uL Baso # (Auto) 0.0 (0.0-0.2) X10*3/uL Abs Immat Gran (auto) 0.02 (0.00-0.03) X10*3/uL Absolute Neuts (auto) 3.9 (2.0-8.3) x10*3/uL Absolute Nucleated RBC 0.000 (0.0-0.012) X10*3/uL Nucleated RBC % (auto) 0.0 (0.0-0.2) /100WBC Sodium 138 (135-145) mmol/L Potassium 4.0 (3.3-5.1) mmol/L Chloride 107 (96-108) mmol/L Carbon Dioxide 22 (22-29) mmol/L Anion Gap 13 (12-20) BUN 15 (9-16) mg/dL Creatinine 0.81 (0.5-1.4) mg/dL Estim Creat Clear Calc 75.5 Estimated GFR > 60 Random Glucose 77 (60-115) mg/dL Calcium 8.9 (8.4-10.2) mg/dL Total Bilirubin 0.2 (0.0-1.0) mg/dL AST 22 (5-31) U/L ALT 18 (0-31) U/L Alkaline Phosphatase 108 (39-117) U/L Total Protein 6.9 (6.5-8.0) g/dL Albumin 3.9 (3.5-5.0) g/dL Urine Color Yellow Urine Appearance Clear Urine pH 6.0 (5.0-9.0) Ur Specific [place] 1.020 (1.005-1.025) Urine Protein 100 (2+) H (Neg-Trace) mg/dL Urine Glucose (UA) Negative (Negative) mg/dL Urine Ketones Negative (Negative) mg/dL Urine Blood Negative (Negative) Urine Nitrite Negative (Negative) Ur Leukocyte Esterase Negative (Negative) Urine RBC 0-2 (0-2) /HPF Urine WBC 0-5 (0-5) /HPF Ur Squamous Epith Cells 0-2 (0-2) /HPF Urine Bacteria None Seen (None Seen) Hyaline Casts 0-2 (0-2) /LPF <BEN Broderick - Last Filed: 03/13/22 20:29> Lab Results 03/13/22 03/13/22 03/13/22 Range/Units 20:55 20:55 21:31 WBC 7.5 (4.8-10.8) X10*3/uL RBC 4.37 (4.20-5.50) X10*6/uL Hgb 12.9 (12.0-16.0) g/dl Hct 38.4 (37.0-47.0) % MCV 87.9 (80.0-98.0) fL MCH 29.5 (27.0-33.0) pg MCHC 33.6 (31.0-35.0) g/dl RDW 13.1 (11.0-16.0) % Plt Count 227 (160-400) X10*3/uL MPV 10.9 (9.4-12.3) fL Immature Gran % (Auto) 0.3 (0.0-0.4) % Neut % (Auto) 51.8 (45-73) % Lymph % (Auto) 39.1 (20-40) % Good[place] % (Auto) 6.8 (2-11) % Eos % (Auto) 1.6 (0-4) % Baso % (Auto) 0.4 (0-2) % Lymph # (Auto) 2.9 (1.2-4.9) X10*3/uL [place] # (Auto) 0.5 (0.1-1.2) X10*3/uL Eos # (Auto) 0.1 (0.0-0.4) X10*3/uL Baso # (Auto) 0.0 (0.0-0.2) X10*3/uL Abs Immat Gran (auto) 0.02 (0.00-0.03) X10*3/uL Absolute Neuts (auto) 3.9 (2.0-8.3) x10*3/uL Absolute Nucleated RBC 0.000 (0.0-0.012) X10*3/uL Nucleated RBC % (auto) 0.0 (0.0-0.2) /100WBC Sodium 138 (135-145) mmol/L Potassium 4.0 (3.3-5.1) mmol/L Chloride 107 (96-108) mmol/L Carbon Dioxide 22 (22-29) mmol/L Anion Gap 13 (12-20) BUN 15 (9-16) mg/dL Creatinine 0.81 (0.5-1.4) mg/dL Estim Creat Clear Calc 75.5 Estimated GFR > 60 Random Glucose 77 (60-115) mg/dL Calcium 8.9 (8.4-10.2) mg/dL Total Bilirubin 0.2 (0.0-1.0) mg/dL AST 22 (5-31) U/L ALT 18 (0-31) U/L Alkaline Phosphatase 108 (39-117) U/L Total Protein 6.9 (6.5-8.0) g/dL Albumin 3.9 (3.5-5.0) g/dL Urine Color Yellow Urine Appearance Clear Urine pH 6.0 (5.0-9.0) Ur Specific [place] 1.020 (1.005-1.025) Urine Protein 100 (2+) H (Neg-Trace) mg/dL Urine Glucose (UA) Negative (Negative) mg/dL Urine Ketones Negative (Negative) mg/dL Urine Blood Negative (Negative) Urine Nitrite Negative (Negative) Ur Leukocyte Esterase Negative (Negative) Urine RBC 0-2 (0-2) /HPF Urine WBC 0-5 (0-5) /HPF Ur Squamous Epith Cells 0-2 (0-2) /HPF Urine Bacteria None Seen (None Seen) Hyaline Casts 0-2 (0-2) /LPF <Cristi Anwer Vince, MD - Last Filed: 03/14/22 00:10> Discharge Plan Discharge Clinical Impression: Renal calculi <BEN Broderick - Last Filed: 03/13/22 20:29> Patient Disposition: Home, Self-Care <BEN Broderick - Last Filed: 03/13/22 20:29> Instructions: Renal Colic (ED) <BEN Broderick - Last Filed: 03/13/22 20:29> Additional Instructions: Drink plenty of fluids Pain medication as prescribed Your stone is in kidney not blocking the tube follow-up with urologist <BEN Broderick - Last Filed: 03/13/22 20:29> Prescriptions: New oxycodone 5 mg tablet 5 mg PO Q6H PRN (Reason: pain) Qty: 20 0RF Rx Instructions: Partial Fill upon patient request. No Action pyridoxine (vitamin B6) 100 mg tablet 100 mg PO DAILY Qty: 90 3RF levothyroxine 50 mcg tablet 50 mcg PO DAILY 90 Days Qty: 90 0RF colchicine 0.6 mg tablet 0.6 mg PO DAILY Qty: 90 1RF dextromethorphan polistirex [Delsym 12 hour] 30 mg/5 mL suspension,extended rel 12 hr 10 ml PO Q12H PRN (Reason: cough) 10 Days Qty: 89 0RF fluticasone propionate 50 mcg/actuation spray,suspension 2 spray intranasal BID cetirizine 10 mg tablet 10 mg PO DAILY meclizine 25 mg tablet 25 mg PO DAILY Qty: 10 0RF losartan 50 mg tablet 50 mg PO BID Citrucel 500 mg tablet 500 mg PO BID Qty: 60 5RF docusate sodium [Colace] 100 mg capsule 200 mg PO BEDTIME Qty: 60 5RF bisacodyl [Dulcolax (bisacodyl)] 5 mg tablet,delayed release (DR/EC) 10 mg PO ONCE 1 Days Qty: 2 0RF Rx Instructions: Take 2 tablets by mouth at 12:00pm the day before your procedure. polyethylene glycol 3350 [Miralax] 17 gram/dose powder 238 g PO ONCE 1 Days Qty: 238 0RF Rx Instructions: Take as directed by mouth the day before your procedure. bisoprolol fumarate 5 mg tablet 2.5 mg PO DAILY Qty: 30 5RF omeprazole 20 mg capsule,delayed release(DR/EC) 20 mg PO DAILY Qty: 30 5RF <BEN Broderick - Last Filed: 03/13/22 20:29>
[2022-03-13 20:29] VITALS: BP 144/85; PULSE 94; RESP 18; TEMP 36.6; O2SAT 98; BMI 31.2
[2022-03-13 21:00] LABS: MANUAL DIFF FLAG NO
[2022-03-13 21:07] LABS: Basophils Percent Auto 0.4 % (0-2); Eosinophils Absolute Auto 0.1 X10*3/uL (0.0-0.4); Eosinophils Percent Auto 1.6 % (0-4); Hematocrit 38.4 % (37.0-47.0); Hemoglobin 12.9 g/dl (12.0-16.0); Imm Gran Abs Auto 0.02 X10*3/uL (0.00-0.03); Imm Gran Pct Auto 0.3 % (0.0-0.4); Lymphocytes Absolute Auto 2.9 X10*3/uL (1.2-4.9); Lymphocytes Percent Auto 39.1 % (20-40); Mean Corpuscular HGB Conc 33.6 g/dl (31.0-35.0); Mean Corpuscular Hemoglobin 29.5 pg (27.0-33.0); Mean Corpuscular Volume 87.9 fL (80.0-98.0); Mean Platelet Volume 10.9 fL (9.4-12.3); Monocytes Absolute Auto 0.5 X10*3/uL (0.1-1.2); Monocytes Percent Auto 6.8 % (2-11); Neutrophils Absolute Auto 3.9 x10*3/uL (2.0-8.3); Neutrophils Percent Auto 51.8 % (45-73); Platelet Count 227 X10*3/uL (160-400); Red Blood Count 4.37 X10*6/uL (4.20-5.50); Red Cell Distribution Width 13.1 % (11.0-16.0); White Blood Count 7.5 X10*3/uL (4.8-10.8)
[2022-03-13 21:29] LABS: Alanine Aminotransferase 18 U/L (0-31); Albumin Level 3.9 g/dL (3.5-5.0); Alkaline Phosphatase 108 U/L (39-117); Anion Gap 13 (12-20); Aspartate Amino Transferase 22 U/L (5-31); Bilirubin Total 0.2 mg/dL (0.0-1.0); Blood Urea Nitrogen 15 mg/dL (9-16); Calcium 8.9 mg/dL (8.4-10.2); Carbon Dioxide 22 mmol/L (22-29); Chloride 107 mmol/L (96-108); Creatinine Clr Calc Pharmacy 75.5; Estimated Glomerular Filt Rate > 60; Glucose Random 77 mg/dL (60-115); Sodium 138 mmol/L (135-145); Total Protein 6.9 g/dL (6.5-8.0)
[2022-03-13 21:37] LABS: Appearance Urine Clear; Color Urine Yellow; Glucose Urine UA Negative (Negative); Leukocyte Esterase Urine Negative (Negative); Nitrite Urine Negative (Negative); UMIC TRIGGER UACC YES; Urine Blood Negative (Negative); Urine Ketones Negative (Negative); Urine Protein 100 (2+) mg/dL (Neg-Trace)
[2022-03-13 21:39] LABS: Bacteria Urine None Seen (None Seen); Hyaline Casts Urine 0-2 /LPF (0-2); RBC Urine 0-2 /HPF (0-2); Squamous Epithelial Cell Urine 0-2 /HPF (0-2); WBC Urine 0-5 /HPF (0-5)
[2022-03-13] MEDS: 0.9 % Sodium Chloride 1,000 ML 999 ML IV (22:36)
[2022-03-13] MEDS: ondansetron HCL 4 MG/2 ML VIAL IVPUSH (22:38)
[2022-03-13] MEDS: Ketorolac Tromethamine 30 MG/ML VIAL IVPUSH (22:39)
[2022-03-13 22:41] VITALS: RESP 20
[2022-03-13] MEDS: Morphine Sulfate 4 MG/ML CARTRIDGE IVPUSH ×2 (22:41→23:28)
[2022-03-13 22:43] VITALS: BP 130/86; PULSE 94; RESP 20; O2SAT 99
--- NOTE | 2022-03-13 23:36 | PC.NURSE ---
report provided to vitor nuñez
== END 2022-03-14 00:30 | disposition home or self-care (01) ==
PROVIDERS: Physician Assistant Medical; Emergency Provider Internal Medicine; PCP Internal Medicine
DX: N20.0 Calculus of kidney (principal); R10.9 Unspecified abdominal pain; Z79.899 Other long term (current) drug therapy; F17.210 Nicotine dependence, cigarettes, uncomplicated
CPT/HCPCS: 36415; 74176; 80053; 81001; 85025; 96361; 96374; 96375; 96376; 99284; J1885; J2270; J2405

== ENCOUNTER → 2022-03-16 14:46 | Outpatient (BNVA) | payer BC, SELFPAY | PROVIDERS: PCP Internal Medicine; Visit Provider Obstetrics & Gynecology | DX: Z13.89 Encounter for screening for other disorder (principal) ==

== ENCOUNTER → 2022-03-23 13:41 | Outpatient (BNVA) | payer BC, SELFPAY | PROVIDERS: PCP Internal Medicine; Referring Provider Internal Medicine; Visit Provider Internal Medicine Cardiovascular Disease | DX: Z13.89 Encounter for screening for other disorder (principal) ==

== ENCOUNTER → 2022-04-02 15:37 | Outpatient (BNVA) | payer BC, SELFPAY | PROVIDERS: PCP Internal Medicine; Visit Provider Nurse Practitioner Family | DX: Z13.89 Encounter for screening for other disorder (principal) ==

== ENCOUNTER → 2022-04-07 09:17 | Outpatient (BNVA) | payer BC, SELFPAY | PROVIDERS: PCP Internal Medicine; Visit Provider Student in an Organized Health Care Education/Training Program | DX: Z13.89 Encounter for screening for other disorder (principal) ==

== ENCOUNTER 2022-04-08 08:41 | Outpatient (REF) | payer BC, SELFPAY ==
[2022-04-08 09:07] LABS: MANUAL DIFF FLAG NO
[2022-04-08 09:59] LABS: Basophils Percent Auto 0.5 % (0-2); Eosinophils Percent Auto 0.7 % (0-4); Hematocrit 38.2 % (37.0-47.0); Hemoglobin 12.9 g/dl (12.0-16.0); Imm Gran Abs Auto 0.02 X10*3/uL (0.00-0.03); Imm Gran Pct Auto 0.4 % (0.0-0.4); Lymphocytes Absolute Auto 1.3 X10*3/uL (1.2-4.9); Lymphocytes Percent Auto 23.5 % (20-40); Mean Corpuscular HGB Conc 33.8 g/dl (31.0-35.0); Mean Corpuscular Hemoglobin 29.9 pg (27.0-33.0); Mean Corpuscular Volume 88.4 fL (80.0-98.0); Mean Platelet Volume 11.4 fL (9.4-12.3); Monocytes Absolute Auto 0.2 X10*3/uL (0.1-1.2); Monocytes Percent Auto 4.2 % (2-11); Neutrophils Percent Auto 70.7 % (45-73); Platelet Count 240 X10*3/uL (160-400); Red Blood Count 4.32 X10*6/uL (4.20-5.50); Red Cell Distribution Width 12.9 % (11.0-16.0); White Blood Count 5.7 X10*3/uL (4.8-10.8)
[2022-04-08 10:10] LABS: Appearance Urine Cloudy; Color Urine Orange; Glucose Urine UA Negative (Negative); Leukocyte Esterase Urine Trace (Negative); Nitrite Urine Negative (Negative); PH 5.5 (5.0-9.0); Specific Gravity - Urine 1.025 (1.005-1.025); UMIC TRIGGER UA YES; Urine Blood Large (3+) (Negative); Urine Ketones Negative (Negative); Urine Protein 300 (3+) mg/dL (Neg-Trace)
[2022-04-08 10:11] LABS: Bacteria Urine None Seen (None Seen); RBC Urine >20 /HPF (0-2); Squamous Epithelial Cell Urine 0-2 /HPF (0-2)
[2022-04-08 10:31] LABS: Alanine Aminotransferase 13 U/L (0-31); Albumin Level 3.7 g/dL (3.5-5.0); Alkaline Phosphatase 74 U/L (39-117); Anion Gap 12 (12-20); Aspartate Amino Transferase 15 U/L (5-31); Bilirubin Total 0.4 mg/dL (0.0-1.0); Blood Urea Nitrogen 15 mg/dL (9-16); C Reactive Protein 0.14 mg/dL (< or = 0.50); Calcium 8.6 mg/dL (8.4-10.2); Carbon Dioxide 23 mmol/L (22-29); Chloride 110 mmol/L (96-108); Estimated Glomerular Filt Rate > 60; Glucose Random 85 mg/dL (60-115); Potassium 3.6 mmol/L (3.3-5.1); Rheumatoid Factor < 13.0 IU/mL (<15.0); Sodium 141 mmol/L (135-145); Total Protein 6.5 g/dL (6.5-8.0)
[2022-04-08 10:35] LABS: Troponin-I High Sensitivity 40.1 ng/L (<3.5-17.0)
[2022-04-08 10:37] LABS: Creatinine Urine 229.36 mg/dL; Protein/Creatinine Ratio, Ur 0.62 (<0.2); Total Protein Urine Random 143 mg/dL (<12)
[2022-04-08 10:45] LABS: Erythrocyte Sedimentation Rate 14 MM/HR (0-20)
[2022-04-08 10:51] LABS: HBS Num1 33.28 mIU/mL (0-7.99); Hepatitis A Antibody IgM 0.21 Index (0-0.79); Hepatitis B Core Antibody Nonreactive (Nonreactive); Hepatitis B Surface Antigen Negative (Negative); ~HepC Num1 0.07 S/CO (0.00-0.79); ~Hepatitis A Antibody IgM Nonreactive (Nonreactive); ~Hepatitis B Surface Antibody REACTIVE (Nonreactive); ~Hepatitis C Antibody Nonreactive (Nonreactive)
[2022-04-10 09:33] LABS: Thyroglobulin Antibodies 3 IU/mL (< or = 1)
[2022-04-10 12:53] LABS: Anti DNA DS Antibody <1 IU/mL; Antibody to SS-B Antigen <1.0 NEG AI (<1.0 NEG); SM/Ribonucleoprotein Ab <1.0 NEG AI (<1.0 NEG); Smith Protein <1.0 NEG AI (<1.0 NEG)
[2022-04-10 13:08] LABS: Cardiolipin IgG Ab <2.0 GPL-U/mL; Cardiolipin IgM Ab <2.0 MPL-U/mL
[2022-04-10 14:04] LABS: Thyroid Peroxidase Antibodies >900 IU/mL (<9)
[2022-04-10 22:04] LABS: Prot Elec - Albumin 3.8 g/dL (3.8-4.8); Prot Elec - Alpha1 0.3 g/dL (0.2-0.3); Prot Elec - Alpha2 0.5 g/dL (0.5-0.9); Prot Elec - Beta 1 0.5 g/dL (0.4-0.6); Prot Elec - Beta 2 0.5 g/dL (0.2-0.5); Prot Elec - Gamma 1.2 g/dL (0.8-1.7); Prot Elec - Total Protein 6.7 g/dL (6.1-8.1)
[2022-04-11 06:34] LABS: Complement C3 143 mg/dL (83-193)
[2022-04-11 08:03] LABS: TS Negative Control Passed; TS Panel A 0; TS Panel B 1; TS Positive Control Passed; TSpotTB Negative (Negative)
[2022-04-11 14:18] LABS: IgA 328 mg/dL (47-310); IgG 1300 mg/dL (600-1640); IgM 70 mg/dL (50-300)
[2022-04-12 12:12] LABS: Anti Nuclear Antibody Screen POSITIVE (NEGATIVE)
[2022-04-13 02:44] LABS: Angiotensin Converting Enzyme 20 U/L (9-67)
[2022-04-13 16:44] LABS: Cyclic Citrullinated Peptide <16 UNITS
[2022-04-14 13:28] LABS: Aldolase 4.3 U/L (<=8.1)
[2022-04-14 13:58] LABS: DNAds, Crithidia Antibody Negative (Negative)
[2022-04-15 22:49] LABS: PTT (LAC) Screen 32 sec (<=40)
[2022-04-16 06:48] LABS: Centromere Protein A Ab <11 SI (<11); Centromere Protein B Ab <11 SI (<11); Fibrillarin Ab <11 SI (<11); PM SCL 100 Ab <11 SI (<11); PM SCL 75 Ab <11 SI (<11); RNA Polymerase III RP11 Ab <11 SI (<11); RNA Polymerase III RP155 Ab <11 SI (<11); SCL-70 Extractable Nuclear Ab <11 SI (<11); Th-To Ab <11 SI (<11); U1 SNRNP RNP 70KD <11 SI (<11); U1 SNRNP RNP A <11 SI (<11); U1 SNRNP RNP C <11 SI (<11)
[2022-04-16 18:04] LABS: Cytosolic 5'nuc 1A Ab IgG 7 Units; Ej Ab <11 SI (<11); HMGCR Ab IgG <2 CU (<20); Jo-1 Ab <11 SI (<11); MDA5 Ab <11 SI (<11); Mi-2 alpha Ab <11 SI (<11); Mi-2 beta Ab <11 SI (<11); NXP-2 (MJ) Ab <11 SI (<11); Oj Ab <11 SI (<11); Pl-12 Ab <11 SI (<11); Pl-7 Ab <11 SI (<11); SRP Ab <11 SI (<11); TIF1 gamma Ab <11 SI (<11)
[2022-04-16 22:18] LABS: Beta-2 Glycoprotein IgA <2.0 U/mL (<20.0); Beta-2 Glycoprotein IgG <2.0 U/mL (<20.0); Beta-2 Glycoprotein IgM <2.0 U/mL (<20.0)
[2022-04-22 19:13] LABS: TPMT Activity 11
== END 2022-04-08 08:42 | disposition home or self-care (01) ==
LOC: HO.LAB 08:41
PROVIDERS: PCP Internal Medicine; Visit Provider Student in an Organized Health Care Education/Training Program
DX: Z11.59 Encounter for screening for other viral diseases (principal); Z11.7 Encounter for testing for latent tuberculosis infection; M34.9 Systemic sclerosis, unspecified; D86.9 Sarcoidosis, unspecified; M25.541 Pain in joints of right hand; E03.9 Hypothyroidism, unspecified; M32.9 Systemic lupus erythematosus, unspecified; D68.61 Antiphospholipid syndrome; Z79.624 Long term (current) use of inhibitors of nucleotide synthesis; Z72.89 Other problems related to lifestyle
CPT/HCPCS: 36415; 80053; 81001; 82085; 82164; 82550; 82657; 82784; 83516; 83520; 84156; 84165; 84182; 84484; 85025; 85549; 85597; 85613; 85652; 85730; 86038; 86039; 86140; 86146; 86147; 86160; 86200; 86225; 86235; 86255; 86334; 86376; 86431; 86481; 86704; 86706; 86709; 86800; 86803; 87340

== ENCOUNTER → 2022-04-09 12:50 | Outpatient (BNVA) | payer BC, SELFPAY | PROVIDERS: PCP Internal Medicine; Visit Provider Physician Assistant | DX: Z13.89 Encounter for screening for other disorder (principal) ==

== ENCOUNTER 2022-04-24 10:53 | Outpatient (REF) | payer BC, SELFPAY ==
--- NOTE | ~2022-04-24 | US_ITS ---
EXAMINATION: US RETROPERITONEAL LIMITED (RENAL ONLY) CLINICAL INFORMATION: Calculus of kidney. COMPARISON: X-ray abdomen KUB 04/24/2022. CT abdomen and pelvis without contrast 03/13/2022. Ultrasound retroperitoneal limited (renal only) 07/01/2021. X-ray abdomen KUB 05/02/2021. Ultrasound retroperitoneal limited (renal only) 12/24/2020. TECHNIQUE: Real-time imaging of the kidneys. FINDINGS: RIGHT KIDNEY: 10.3 x 5.2 x 5.8 cm (SAG x AP x TRV). The kidney is normal in size, contour, and echogenicity. Renal cortical thickness is normal. No focal parenchymal lesions or hydronephrosis. 6 mm midpole nonobstructing stone. LEFT KIDNEY: 12.0 x 5.5 x 6.0 cm (SAG x AP x TRV). The kidney is normal in size, contour, and echogenicity. Renal cortical thickness is normal. No hydronephrosis. Upper pole 3.7 cm complex 6 with internal septations and vascularity. Lower pole 4 mm stone. US/US renal BI IMPRESSION: 1. Left upper pole 3.7 cm complex cyst with internal septations and vascularity. Recommend further evaluation with CT or MR renal protocol. 2. Bilateral nonobstructing nephrolithiasis.
--- NOTE | ~2022-04-24 | XR_ITS ---
EXAMINATION: XR ABDOMEN KUB CLINICAL INDICATION: Renal calculus COMPARISON: CT abdomen and pelvis, 03/13/2022, KUB, 05/02/2021 TECHNIQUE: AP view of the abdomen. FINDINGS: Evaluation for nephrolithiasis is limited secondary to overlying bowel gas. Multiple pelvic calcifications again seen, likely representing phleboliths. Nonobstructive bowel gas pattern with small volume of stool. No acute osseous abnormality. Metallic piercing again projects over the lower abdominal midline. XR/XR KUB IMPRESSION: Limited evaluation for nephrolithiasis secondary to overlying bowel gas.
== END 2022-04-24 10:54 | disposition home or self-care (01) ==
LOC: HO.US 10:53
PROVIDERS: PCP Internal Medicine; Visit Provider Nurse Practitioner Family
DX: N20.0 Calculus of kidney (principal)
CPT/HCPCS: 74018; 76775

== ENCOUNTER → 2022-04-29 12:30 | Outpatient (BNVA) | payer BC, SELFPAY | PROVIDERS: PCP Internal Medicine; Visit Provider Student in an Organized Health Care Education/Training Program | DX: Z13.89 Encounter for screening for other disorder (principal) ==

== ENCOUNTER → 2022-07-10 11:43 | Outpatient (BNVA) | payer BC, SELFPAY | PROVIDERS: PCP Internal Medicine; Visit Provider Nurse Practitioner Family ==

== ENCOUNTER 2022-09-02 05:51 | Day surgery (SDC) | payer BC, SELFPAY ==
[2022-08-31 13:48] VITALS: BMI 31.2
--- NOTE | 2022-09-01 10:00 | P.CONAN_ITS ---
HPI - Anesthesia Eval Consult details Narrative: 44yo F for Right ESWL Last ESWL 2020 with TIVA SLE with chronic pericarditis. Colchicine BID. Follows with cardiology and rheum - both seen in 2022. No further testing or change in treatment ordered at this time. Chronic opioids Plaquinel for SLE PMFSH Active Problems Active Problems: All Active Problems (Updated 08/31/22 @ 13:33 by Kady Bowie RN) RBBB (Acute) Encounter for management and injection of depo-Provera (Acute) Transaminitis (Acute) Chronic constipation (Acute) Encounter for general adult medical examination with abnormal findings (Acute) Joint stiffness (Acute) Breast screening (Acute) Cardiomyopathy (Acute) History of pericarditis (Acute) Acute pericarditis (Acute) Right flank pain (Acute) Renal calculi (Acute) Acid reflux (Acute) Menorrhagia (Acute) Chronic constipation (Acute) Environmental allergies (Acute) Well woman exam (Acute) Screen for STD (sexually transmitted disease) (Acute) Dizziness (Acute) Tendinitis of left shoulder (Acute) Other specified hypothyroidism (Acute) Painful arc syndrome of left shoulder (Acute) Cervical radiculopathy (Acute) Abnormal uterine bleeding (AUB) (Acute) Complex ovarian cyst (Acute) Cough (Acute) COVID-19 virus infection (Acute) Renal cyst (Acute) Long-term use of hydroxychloroquine (Acute) Pharyngitis (Acute) Otitis media (Acute) Hypothyroid (Acute) Kidney stones (Acute) UTI (urinary tract infection) (Acute) Lupus nephritis (Acute) Pericarditis associated with systemic lupus erythematosus (Acute) HTN (hypertension) (Acute) Pericardial effusion (Acute) SLE (systemic lupus erythematosus) (Acute) Past Medical History Medical History (Updated 08/31/22 @ 13:33 by Kady Bowie RN) Dysplasia of cervix, low grade ([place] 1) HTN (hypertension) Hypothyroid Joint pain in fingers of right hand Kidney stones Lupus nephritis Myositis Pericardial effusion Pericardial effusion Pericarditis associated with systemic lupus erythematosus SLE (systemic lupus erythematosus) SLE (systemic lupus erythematosus) UTI (urinary tract infection) Family History Family History Father No problems noted. Mother No problems noted. Family history of problems with anesthesia: No Surgical History Surgical History (Updated 08/31/22 @ 13:32 by Kady Bowie RN) History of biopsy History of cystoscopy History of kidney surgery History of wisdom tooth extraction Hx of lithotripsy Hx of tubal ligation History of Problems with Anesthesia: No Social History Social History Household Members: Significant Other and Children Housing: House Are you a primary certified social workers in health care to a significant other at home: No Do you presently have visiting nurse or other home services: No Alcohol intake: never Patient Tobacco Use Status: Never used Tobacco Tobacco use type: Smokeless Tobacco Cigarette Packs Per Day: 0 e-Cigarette/Vaping Use: Currently Using service: No Current occupational status: employed 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, 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 Cognitive needs: No Hearing needs: No Vision needs: Yes Meds Allergies Allergy/AdvReac Type Severity Reaction Status Date / Time aspirin Allergy Unknown vomiting, Verified 07/11/22 12:15 GI upset Home Medications Medication Instructions Recorded Confirmed Last Taken Type losartan 50 mg tablet 50 mg PO BID 12/13/19 08/31/22 06/17/20 History fluticasone propionate 50 2 spray intranasal BID 06/17/20 08/31/22 06/17/20 History mcg/actuation nasal spray,suspension cetirizine 10 mg tablet 10 mg PO DAILY 08/12/21 08/31/22 Unknown History docusate sodium 100 mg capsule 100 mg PO DAILY 04/09/22 08/31/22 Unknown History (Dulcolax Stool Softener (docusate)) meclizine 25 mg tablet 25 mg PO DAILY PRN Insomnia 04/29/22 08/31/22 Unknown History Exam Exam Date and Time: September 01, 2022 1000 Height,Weight and Vital Signs: Height 5 ft Weight 72.575 kg Pertinent Lab Results Pertinent Lab Results: Laboratory Tests 04/08/22 04/08/22 09:05 09:05 WBC 5.7 Hgb 12.9 Hct 38.2 Plt Count 240 Sodium 141 Potassium 3.6 Chloride 110 H Carbon Dioxide 23 BUN 15 Creatinine 0.85 Narrative Narrative: EKG 01/2022 Vent. Rate : 091 BPM ? ? Atrial Rate : 091 BPM ?? P-R Int : 152 ms? QRS Dur : 122 ms ? ? QT Int : 386 ms ? ? ? P-R-T Axes : 036 -18 017 degrees ?? QTc Int : 474 ms ? Normal sinus rhythm Right bundle branch block Abnormal ECG When compared to the previous EKG of No significant changes seen ECHO 07/2021 Conclusions: - 1.? Normal LV systolic function with impaired relaxation ? ? ? filling pattern? 2.? Normal cardiac valvular Doppler? 3.? Normal RV systolic pressure? 4.? Small pericardial effusion? Assessment and Plan Assessment Anesthesia Assessment: Chart Reviewed Final Anesthetic Review Family History of Problems with Anesthesia: No History of Problems with Anesthesia: No
[2022-09-02] VITALS (7 sets, daily range): BP systolic 117–159; BP diastolic 75–98; PULSE 81–90; RESP 16–20; TEMP 36.1–36.3; O2SAT 97–100
--- NOTE | ~2022-09-02 | XR_ITS ---
EXAMINATION: XR ABDOMEN KUB CLINICAL INDICATION: Right kidney stone COMPARISON: 04/24/2022 TECHNIQUE: AP view of the abdomen. FINDINGS: Limited assessment for renal calculi due to overlying bowel contents. The renal calculi identified previously are not clearly seen radiographically. Bowel gas pattern is nonobstructive. Moderate volume of stool is present. Multiple calcifications in the pelvis favor phleboliths. No acute osseous findings are seen. Included lung bases appear well-aerated. XR/XR KUB IMPRESSION: Previously identified renal calculi are not clearly seen radiographically, with assessment limited due to overlying bowel contents.
[2022-09-02] MEDS: Lactated Ringers 1,000 ML 100 ML IVCONT (06:33)
--- NOTE | 2022-09-02 07:23 | MHC.SHP ---
Pre-Procedural Eval Section A Date of Service: 09/02/22 The patient is an INPATIENT: No Changes since office visit: No Cold of Flu in the past 2 weeks, No New Medical Problems, No Changes in Medication and No Patient answered all questions The History & Physical has been completed within 30 days and I have reviewed it.: No Section B Chief Complaint: Calculus of kidney Relevant Social History: None Present Medications: None Medical History: No relevant PMH History of Previous Operations: No relevant previous surgery Allergies: Allergies Allergy/AdvReac Type Severity Reaction Status Date / Time aspirin Allergy Unknown vomiting, Verified 07/11/22 12:15 GI upset Review of Systems Sugical H&P ROS: Negative: Constitution, Cardiovascular, Respiratory, Neurological, Psychiatric, Hem-Onc, Allergic/Immunologic, Gastrointestinal, Genitourinary, Musculoskeletal, Integumentary, Endocrine and Eyes/Ears/Nose/Throat Exam Surgical H&P Exam: Normal: HEENT, Normal: Heart, Normal: Lungs, Normal: Extremities, Normal: Abdomen, Normal: Skin and Normal: Neurological Plan Diagnosis/Plan: Unchanged (right eswl) I have reviewed the history and physical and performed a pertinent physical examination on my patient. No changes have occurred unless specified. Time Spent With Patient Time: Total time managing care of this patient today ____ minutes.
--- NOTE | 2022-09-02 07:37 | P.CONAN_ITS ---
FORMERLY [facility] Active Problems Active Problems: All Active Problems (Updated 08/31/22 @ 13:33 by Kady Bowie RN) RBBB (Acute) Encounter for management and injection of depo-Provera (Acute) Transaminitis (Acute) Chronic constipation (Acute) Encounter for general adult medical examination with abnormal findings (Acute) Joint stiffness (Acute) Breast screening (Acute) Cardiomyopathy (Acute) History of pericarditis (Acute) Acute pericarditis (Acute) Right flank pain (Acute) Renal calculi (Acute) Acid reflux (Acute) Menorrhagia (Acute) Chronic constipation (Acute) Environmental allergies (Acute) Well woman exam (Acute) Screen for STD (sexually transmitted disease) (Acute) Dizziness (Acute) Tendinitis of left shoulder (Acute) Other specified hypothyroidism (Acute) Painful arc syndrome of left shoulder (Acute) Cervical radiculopathy (Acute) Abnormal uterine bleeding (AUB) (Acute) Complex ovarian cyst (Acute) Cough (Acute) COVID-19 virus infection (Acute) Renal cyst (Acute) Long-term use of hydroxychloroquine (Acute) Pharyngitis (Acute) Otitis media (Acute) Hypothyroid (Acute) Kidney stones (Acute) UTI (urinary tract infection) (Acute) Lupus nephritis (Acute) Pericarditis associated with systemic lupus erythematosus (Acute) HTN (hypertension) (Acute) Pericardial effusion (Acute) SLE (systemic lupus erythematosus) (Acute) Past Medical History Medical History (Updated 08/31/22 @ 13:33 by Kady Bowie RN) Dysplasia of cervix, low grade ([place] 1) HTN (hypertension) Hypothyroid Joint pain in fingers of right hand Kidney stones Lupus nephritis Myositis Pericardial effusion Pericardial effusion Pericarditis associated with systemic lupus erythematosus SLE (systemic lupus erythematosus) SLE (systemic lupus erythematosus) UTI (urinary tract infection) Functional capacity: independent ambulation Family History Family History Father No problems noted. Mother No problems noted. Family history of problems with anesthesia: No Surgical History Surgical History (Updated 08/31/22 @ 13:32 by Kady Bowie RN) History of biopsy History of cystoscopy History of kidney surgery History of wisdom tooth extraction Hx of lithotripsy Hx of tubal ligation History of Problems with Anesthesia: No Social History Social History Household Members: Significant Other and Children Housing: House Are you a primary lawn care professional to a significant other at home: No Do you presently have visiting nurse or other home services: No Alcohol intake: never Patient Tobacco Use Status: Never used Tobacco Tobacco use type: Smokeless Tobacco Cigarette Packs Per Day: 0 e-Cigarette/Vaping Use: Currently Using Are you DNR?: No Advance Directives: No Advance Directives Information Provided: Yes Patient : No service: No Current occupational status: employed 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, 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 Cognitive needs: No Hearing needs: No Vision needs: Yes Meds Allergies Allergy/AdvReac Type Severity Reaction Status Date / Time aspirin Allergy Unknown vomiting, Verified 07/11/22 12:15 GI upset Active Medications: Current Medications Lactated Ringer's (Lr) 1,000 mls @ 100 mls/hr IVCONT .Q10H COUNTS INCLUDE 234 BEDS AT THE [facility] Last Admin: 09/02/22 06:33 Dose: 100 mls/hr Lactated Ringer's (Lr) 1,000 mls @ 999 mls/hr IV .Q1H1M COUNTS INCLUDE 234 BEDS AT THE [facility] Stop: 09/02/22 08:30 Home Medications Medication Instructions Recorded Confirmed Last Taken Type losartan 50 mg tablet 50 mg PO BID 12/13/19 08/31/22 06/17/20 History fluticasone propionate 50 2 spray intranasal BID 06/17/20 08/31/22 06/17/20 History mcg/actuation nasal spray,suspension cetirizine 10 mg tablet 10 mg PO DAILY 08/12/21 08/31/22 Unknown History docusate sodium 100 mg capsule 100 mg PO DAILY 04/09/22 08/31/22 Unknown History (Dulcolax Stool Softener (docusate)) meclizine 25 mg tablet 25 mg PO DAILY PRN Insomnia 04/29/22 08/31/22 Unknown History Exam Exam Date and Time: September 02, 2022 0737 Height,Weight and Vital Signs: Height 5 ft Weight 72.575 kg Last Vital Signs Temp 97.3 F 09/02/22 06:13 Pulse 81 09/02/22 06:13 Resp 20 09/02/22 06:13 BP 117/75 09/02/22 06:13 Pulse Ox 97 09/02/22 06:13 O2 Del Method Room Air 09/02/22 06:13 Airway Mallampati Class: III TM Dist: >3cm Neck ROM: Full Heart: RRR Lungs: CTA Assessment and Plan Assessment Anesthesia Assessment: Anesthesia Plan Discussed Final Anesthetic Review Family History of Problems with Anesthesia: No History of Problems with Anesthesia: No ASA Class: III Final Preanesthetic Review: Meds/Allgs Chart Reviewed, Consent Obtained/Reviewed and Anes Risks/Benef Reviewed Patient Risk: Low Procedure Risk: Low Anesthetic Plan Anesthetic Plan: GA Disposition: Standard PACU
--- NOTE | 2022-09-02 07:52 | W.PM.OPN ---
Operative Note Operative Note Date of Service: 09/02/22 Narrative: PreOperative Diagnosis: right Renal stones Post Operative Diagnosis: right Renal stones Procedure: right ESWL Surgeon: Dr Julio Sutton Anesthesia: mac/sedation Indications for procedure: The patient understands ESWL may be a staged procedure and subsequent intervention may be required based on imaging after ESWL. Quoted stone clearance rates for a solitary procedure are in the 70-80% range based primarily on stone location. They also understand there is a risk of bleeding to the kidney, infection, damage to adjacent organs, and stone migration following the procedure. - Imaging 6mm righyt renal ultrasound Procedure: After informed consent was verified the patient was brought to the operating room and placed in a supine position. Anesthesia was performed per protocol. Safety pause time-out was performed. Imaging was displayed in the room and laterality confirmed. ESWL was performed. The 1st 500 shocks were performed at 60 hertz. These were performed with increasing power. Once maximum power was reached the rate was increased to 180 hertz. A total of 2500 shocks were given. Targeted imaging with ultrasound/fluoroscopy showed stone smudging suggestive of disintegration. The patient tolerated the procedure well and was transferred to the recovery area upon completion. Post procedure imaging will be organized. There was no evidence for flank discoloration.
[2022-09-02] MEDS: Ketorolac Tromethamine 15 MG/ML VIAL IVPUSH (08:36)
[2022-09-02] MEDS: traMADoL HCL 50 MG TABLET PO (08:36)
--- NOTE | 2022-09-02 14:01 | HO.POSTANES ---
Post Anesthesia Evaluation Post Anesthesia Evaluation Date of Service: 09/02/22 Vital Signs: Vital Signs Temp Pulse Resp BP Pulse Ox O2 Del Method 09/02/22 09:00 97 F 83 16 128/78 98 Room Air 09/02/22 08:25 90 16 150/95 H 100 Room Air 09/02/22 08:20 89 16 155/98 H 99 Room Air 09/02/22 08:45 82 16 146/89 H 100 Room Air 09/02/22 08:30 86 16 159/88 H 100 Room Air 09/02/22 08:15 97 F 88 16 159/82 H 100 Room Air 09/02/22 06:13 97.3 F 81 20 117/75 97 Room Air Anesthesia: General LMA Mental Status: Awake Pain Control: Satisfactory Nausea/Vomiting: None Hydration: Adequate Anesthesia-Related Issues: No Anes. Related Issues
== END 2022-09-02 09:51 | disposition home or self-care (01) ==
PROVIDERS: PCP Internal Medicine; Visit Provider Urology
PROC: (CPT 50590; principal; 2022-09-02 07:30)
DX: N20.0 Calculus of kidney (principal); I10 Essential (primary) hypertension; Z88.6 Allergy status to analgesic agent
CPT/HCPCS: 50590; 74018; J0131; J1885; J2250; J3010

== ENCOUNTER → 2022-09-02 05:51 | Outpatient (BNV) | payer BC, SELFPAY | PROVIDERS: PCP Internal Medicine; Visit Provider Urology | DX: N20.0 Calculus of kidney (principal) | CPT/HCPCS: 50590 ==

== ENCOUNTER 2022-09-11 07:46 | Outpatient (REF) | payer BC, SELFPAY ==
[2022-09-11 08:12] LABS: MANUAL DIFF FLAG NO
[2022-09-11 08:25] LABS: Basophils Percent Auto 0.3 % (0-2); Eosinophils Absolute Auto 0.1 X10*3/uL (0.0-0.4); Eosinophils Percent Auto 1.1 % (0-4); Hemoglobin 13.2 g/dl (12.0-16.0); Imm Gran Abs Auto 0.02 X10*3/uL (0.00-0.03); Imm Gran Pct Auto 0.3 % (0.0-0.4); Lymphocytes Percent Auto 31.7 % (20-40); Mean Corpuscular Hemoglobin 29.3 pg (27.0-33.0); Mean Corpuscular Volume 88.9 fL (80.0-98.0); Mean Platelet Volume 10.8 fL (9.4-12.3); Monocytes Absolute Auto 0.4 X10*3/uL (0.1-1.2); Monocytes Percent Auto 6.9 % (2-11); Neutrophils Absolute Auto 3.7 x10*3/uL (2.0-8.3); Neutrophils Percent Auto 59.7 % (45-73); Platelet Count 238 X10*3/uL (160-400); Red Cell Distribution Width 12.9 % (11.0-16.0); White Blood Count 6.2 X10*3/uL (4.8-10.8)
[2022-09-11 08:51] LABS: Alanine Aminotransferase 11 U/L (0-31); Albumin Level 3.8 g/dL (3.5-5.0); Alkaline Phosphatase 70 U/L (39-117); Anion Gap 16 (12-20); Aspartate Amino Transferase 14 U/L (5-31); Bilirubin Total 0.3 mg/dL (0.0-1.0); Blood Urea Nitrogen 16 mg/dL (9-16); C Reactive Protein 0.19 mg/dL (< or = 0.50); Calcium 9.5 mg/dL (8.4-10.2); Carbon Dioxide 19 mmol/L (22-29); Chloride 108 mmol/L (96-108); Estimated Glomerular Filt Rate > 60; Glucose Random 91 mg/dL (60-115); Sodium 139 mmol/L (135-145); Total Protein 7.2 g/dL (6.5-8.0)
[2022-09-11 09:02] LABS: Troponin-I High Sensitivity 21.1 ng/L (<3.5-17.0)
[2022-09-11 09:12] LABS: Erythrocyte Sedimentation Rate 14 MM/HR (0-20)
[2022-09-11 09:46] LABS: Appearance Urine Clear; Color Urine Yellow; Glucose Urine UA Negative (Negative); Leukocyte Esterase Urine Small (1+) (Negative); Nitrite Urine Negative (Negative); PH 5.5 (5.0-9.0); Specific Gravity - Urine 1.015 (1.005-1.025); UMIC TRIGGER UA YES; Urine Blood Small (1+) (Negative); Urine Ketones Negative (Negative); Urine Protein 100 (2+) mg/dL (Neg-Trace)
[2022-09-11 09:48] LABS: Bacteria Urine None Seen (None Seen); Hyaline Casts Urine 0-2 /LPF (0-2); Squamous Epithelial Cell Urine 0-2 /HPF (0-2); WBC Urine 21-50 /HPF (0-5)
[2022-09-11 10:26] LABS: Creatinine Urine 144.98 mg/dL; Protein/Creatinine Ratio, Ur 0.45 (<0.2); Total Protein Urine Random 65 mg/dL (<12)
[2022-09-14 20:59] LABS: Complement C3 163 mg/dL (83-193)
[2022-09-15 13:24] LABS: Anti DNA DS Antibody <1 IU/mL
== END 2022-09-11 07:47 | disposition home or self-care (01) ==
LOC: HO.LAB 07:46
PROVIDERS: PCP Internal Medicine; Visit Provider Student in an Organized Health Care Education/Training Program
DX: M32.9 Systemic lupus erythematosus, unspecified (principal)
CPT/HCPCS: 36415; 80053; 81001; 84156; 84484; 85025; 85652; 86140; 86160; 86225

== ENCOUNTER 2022-09-17 10:43 | Outpatient (AMB) | payer BC, SELFPAY ==
[2022-09-17 10:57] VITALS: BP 106/76; PULSE 94; TEMP 36.8; O2SAT 98; BMI 29.8
--- NOTE | 2022-09-17 10:57 | MHC.OFFVIS ---
Intake Vital Signs 09/17/22 10:57 Height 5 ft Weight 152 lb 12.485 oz BMI 29.8 BP 106/76 Blood Pressure Location Rt brachial Position Sitting Pulse 94 Pulse Source Pulse Oximeter Temp 98.2 F Pulse Oximetry (%) 98 Oxygen Delivery Method Room Air Intake Visit Reasons: SLE Intake Note: SLE Senior User Experience Architect Required: No Allergies aspirin Allergy (Unknown, Verified 09/17/22 11:00) vomiting, GI upset Medication List - Last Reconciled 09/17/22 by Richie Nobles MD amoxicillin-pot clavulanate 875-125 mg 1 tab PO Q12H 10 days cetirizine 10 mg PO DAILY colchicine (gout) 0.6 mg PO BID docusate sodium (Dulcolax Stool Softener (docusate)) 100 mg PO DAILY PRN fluticasone propionate 50 mcg/actuation 2 sprays intranasal BID hydroxychloroquine Take 2 tabs by mouth once daily 5 days a week and 1 tab by mouth 2 days a week levothyroxine 50 mcg PO DAILY 90 days losartan 50 mg PO BID meclizine 25 mg PO DAILY PRN phenazopyridine (Pyridium) 100 mg PO TID PRN 4 days pyridoxine (vitamin B6) 100 mg PO DAILY tamsulosin 0.4 mg PO BEDTIME 14 days HPI HPI Comments History of Present Illness Details 46-year-old female with SLE presents for a follow-up. Patient states that she has been having neck pain that radiates to her left shoulder. She has difficulty rotating her neck. She also gets pain on the outside of both elbows, worse on the right side, she also has pain on the inside of both knees and pain in the soles of both feet. She denies any skin rashes. Denies any swollen joints. Continues to get intermittent chest pain. Tolerating colchicine and Plaquenil. Was recently evaluated by an crewman main battle tank and she has to return for visual field testing Initial history: This is a 46-year-old female with past medical history of SLE who presents as a new patient for evaluation of SLE. Previously evaluated by Dr. Brennon red. Last seen by Dr. Mancilla in 2020. SLE history: Per patient diagnosed at age 10 with joint pain. She had a kidney biopsy in her teens which showed class 2 nephritis and treated with prednisone. Most recent kidney mass in 2001 showed no active lupus nephritis. Her SLE was treated with prednisone for the most part. She was on hydroxychloroquine for about 3 [address] seen by Dr. Mancilla. Started having pericarditis in 2011, treated with colchicine then recurred in 2018 and was resumed on colchicine. Colchicine stopped in October 2018 and reoccurred in early 2019 and she was restarted on colchicine and indomethacin. Patient stated she has been getting more frequent pericarditis episode, most recent flare and January of 2022 and at that time the colchicine dose was increased to 2 tabs daily. When last seen by her printed circuit boards solder leveler a week ago colchicine was reduced to 1 tab daily. Patient states she continues to have chest pain and occasional palpitations. Palpitations are worse when she is anxious. She has diffuse pain everywhere in her chest, arms, back, legs. She also has pain in her fingers. 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 She has started having recurrent rotator cuff tendinitis years ago and referred for physical therapy a few times without significant relief. She continues to have left shoulder pain. She denies any skin rashes. There is no history of DVT/PE. She mentions that recently her sister was diagnosed with myositis and rheumatoid arthritis. She states that when she was on hydroxychloroquine her overall symptoms were better. [facility] Medical History Dysplasia of cervix, low grade ([place] 1) HTN (hypertension) Hypothyroid Joint pain in fingers of right hand Kidney stones Lupus nephritis Myositis Pericardial effusion Pericardial effusion Pericarditis associated with systemic lupus erythematosus SLE (systemic lupus erythematosus) SLE (systemic lupus erythematosus) UTI (urinary tract infection) Surgical History History of biopsy History of cystoscopy History of kidney surgery History of wisdom tooth extraction Hx of lithotripsy Hx of tubal ligation Family History Father No problems noted. Mother No problems noted. 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 Cognitive needs: No Hearing needs: No Vision needs: Yes Female Reproductive History Menstrual Age of Menarche: 10 Review of Systems ENT Reports neck pain GI Reports constipation Musc Reports arthralgias and Reports neck pain Physical Exam Vital Signs: Last Vital Signs Temp 98.2 F 09/17/22 10:57 Pulse 94 09/17/22 10:57 BP 106/76 09/17/22 10:57 Pulse Ox 98 09/17/22 10:57 Oxygen Delivery Method Room Air 09/17/22 10:57 BMI result Body Mass Index 29.8 Const General: cooperative and comfortable Orientation/consciousness: patient oriented x3 Neck Other: Limited neck rotation to right and left Positive Spurling test with radiation to her left shoulder Resp Effort & Inspection: normal respiratory effort and able to speak in complete sentences Auscultation: clear to auscultation bilaterally Cardio Rate: regular rate Rhythm: regular rhythm GI Inspection: No distended Palpation (GI): Soft to palpation and nontender Skin General skin exam: no rashes or lesions noted Neuro General: patient oriented x3 Extrem Other: Right elbow: Tenderness to palpation at the the lateral epicondyle area Tenderness to palpation at the medial aspect of both knees Assessment & Plan Assessment & Plan (1) SLE (systemic lupus erythematosus): Comment: dx in her teens (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, most recent kidney biopsy in 2001 with no active features of lupus nephritis with ongoing proteinuria, body aches, pericarditis with effusion that required pericardial window, abnormal nailfold capillaroscopy +++SSa) Code(s): M32.9 - Systemic lupus erythematosus, unspecified Qualifiers: Systemic lupus erythematosus type: other Systemic lupus erythematosus organ involvement: pericarditis Qualified Code(s): M32.12 - Pericarditis in systemic lupus erythematosus Plan: This is a 46-year-old female with a past medical history of SLE diagnosed in her teens (class 2 lupus nephritis based on biopsy in her teens, most recent kidney biopsy in 2001 with no active features of lupus nephritis with ongoing mild proteinuria, body aches, pericarditis) who presents for follow-up. Patient apparently was treated with prednisone and hydroxychloroquine for 2-3 years in the past. For her pericarditis patient has been tolerating colchicine 1 tab twice daily with no pericarditis recurrent Continue hydroxychloroquine. 400 mg x 5 days and 200 mg x 2 days a week Patient has chronic proteinuria that is unchanged. SLE activity markers are normal. Today patient's pain is likely mechanical in nature. However will start a prednisone therapeutic trial (2) Long-term use of hydroxychloroquine: Code(s): Z79.899 - Other custodial (current) drug therapy Plan: Discussed risks and benefits of hydroxychloroquine. Discussed risk of retinopathy. Patient was evaluated by an crewman main battle tank and is going back for VF testing (3) Pericarditis associated with systemic lupus erythematosus: Code(s): I31.9 - Disease of pericardium, unspecified; M32.12 - Pericarditis in systemic lupus erythematosus Qualifiers: Chronicity: chronic Chronic pericarditis complication: unspecified complication status Qualified Code(s): M32.12 - Pericarditis in systemic lupus erythematosus (4) Cervical radiculopathy: Code(s): M54.12 - Radiculopathy, cervical region Plan: Ordered a cervical spine MRI. Referred patient to PT for her neck. Will also check x-rays of involved painful joints including elbows, knees, feet. Try [id number] Voltaren gel Advised patient to follow-up with a race and sports book writer for her foot pain. Plan I spent 29 minutes reviewing patient's chart, evaluating patient, ordering diagnostic workup, counseling patient and documenting in the chart Orders: Orders MR cervical spine wo con Today M54.12 - Radiculopathy, cervical region PT Evaluation and Treatment Today M54.12 - Radiculopathy, cervical region Comprehensive Met. Panel Today M32.9 - Systemic lupus erythematosus, unspecified C Reactive Protein Today M32.9 - Systemic lupus erythematosus, unspecified Complete Blood Count Auto Diff Today M32.9 - Systemic lupus erythematosus, unspecified Erythrocyte Sedimentation Rate Today M32.9 - Systemic lupus erythematosus, unspecified XR elbow LT min 3V Today M32.9 - Systemic lupus erythematosus, unspecified XR elbow RT min 3V Today M32.9 - Systemic lupus erythematosus, unspecified XR foot LT min 3V Today M32.9 - Systemic lupus erythematosus, unspecified XR foot RT min 3V Today M32.9 - Systemic lupus erythematosus, unspecified XR knee LT 3V Today M32.9 - Systemic lupus erythematosus, unspecified XR knee RT 3V Today M32.9 - Systemic lupus erythematosus, unspecified XR knee standing BI Today M32.9 - Systemic lupus erythematosus, unspecified XR shoulder LT min 2V Today M32.9 - Systemic lupus erythematosus, unspecified XR shoulder RT min 2V Today M32.9 - Systemic lupus erythematosus, unspecified Comprehensive Met. Panel 3 Months M32.9 - Systemic lupus erythematosus, unspecified C Reactive Protein 3 Months M32.9 - Systemic lupus erythematosus, unspecified Troponin-I High Sensitivity 3 Months M32.9 - Systemic lupus erythematosus, unspecified Protein Creatinine Ratio, Ur 3 Months M32.9 - Systemic lupus erythematosus, unspecified Complete Blood Count Auto Diff 3 Months M32.9 - Systemic lupus erythematosus, unspecified Erythrocyte Sedimentation Rate 3 Months M32.9 - Systemic lupus erythematosus, unspecified Complement C3 3 Months M32.9 - Systemic lupus erythematosus, unspecified Complement C4 3 Months M32.9 - Systemic lupus erythematosus, unspecified Anti DNA DS Antibody 3 Months M32.9 - Systemic lupus erythematosus, unspecified UA w Microscopic 3 Months M32.9 - Systemic lupus erythematosus, unspecified Medications: New prednisone Take 3 tabs by mouth once daily with breakfast for 1 week then 2 tabs daily for 1 week then 1 tab daily for 1 week then stop 42 tabs 0RF Coding Level of Care Code Est Pt Level 4 (03334) Diagnoses SLE (systemic lupus erythematosus) M32.12 Systemic lupus erythematosus type: other Systemic lupus erythematosus organ involvement: pericarditis Long-term use of hydroxychloroquine Z79.899 Pericarditis associated with systemic lupus erythematosus M32.12 Chronicity: chronic Chronic pericarditis complication: unspecified complication status Cervical radiculopathy M54.12
== END 2022-09-17 11:33 | disposition home or self-care (01) ==
PROVIDERS: PCP Internal Medicine; Visit Provider Student in an Organized Health Care Education/Training Program
DX: M32.12 Pericarditis in systemic lupus erythematosus (principal); Z79.899 Other long term (current) drug therapy; M54.12 Radiculopathy, cervical region
CPT/HCPCS: 99214

== ENCOUNTER → 2022-09-17 10:43 | Outpatient (BNVA) | payer BC, SELFPAY | PROVIDERS: PCP Internal Medicine; Visit Provider Student in an Organized Health Care Education/Training Program ==

== ENCOUNTER → 2022-09-23 08:45 | Outpatient (BNV) | payer BC, SELFPAY | PROVIDERS: Visit Provider Radiology Diagnostic Radiology | DX: Z12.31 Encounter for screening mammogram for malignant neoplasm of breast (principal) | CPT/HCPCS: 77063; 77067 ==

== ENCOUNTER 2022-09-23 08:50 | Outpatient (REF) | payer BC, SELFPAY ==
--- NOTE | ~2022-09-23 | MM_ITS ---
EXAMINATION: MM SCREENING DIGITAL BREAST TOMOSYNTHESIS, BILATERAL CLINICAL INFORMATION: Screening. Asymptomatic. The lifetime risk of breast cancer based on the Tyrer-Cuzick Model is 6.9%. COMPARISON: Mammography: 09/01/2021, and dating back to 2013. TECHNIQUE: Digital breast tomosynthesis is performed in both the craniocaudal and mediolateral oblique views along with computer-aided detection (CAD). Synthesized 2D images are generated from the tomosynthesis. FINDINGS: The breasts are heterogeneously dense, which may obscure small masses (ACR BI-RADS breast composition Category c). There are no suspicious masses, suspicious grouped calcifications, or areas of architectural distortion. The parenchymal pattern is stable from prior exams. There is similar-appearing axillary lymph nodes which do not appear worrisome. MM/MM tomosynthesis screening BI IMPRESSION: No mammographic evidence of malignancy. ASSESSMENT: BI-RADS BI-RADS 1 - Negative RECOMMENDATION: Routine annual mammography screening. 1 year F/U This examination should not preclude the clinical evaluation of a suspicious palpable abnormality. This patient's information was entered into a reminder system with a target due date for their next mammogram.
== END 2022-09-23 08:51 | disposition home or self-care (01) ==
LOC: HO.MAMMO 08:50
PROVIDERS: Visit Provider Internal Medicine
DX: Z12.31 Encounter for screening mammogram for malignant neoplasm of breast (principal)
CPT/HCPCS: 77063; 77067

== ENCOUNTER 2022-10-05 08:51 | Outpatient (REF) | payer BC, SELFPAY ==
--- NOTE | ~2022-10-05 | US_ITS ---
EXAMINATION: US RETROPERITONEAL LIMITED (RENAL ONLY) CLINICAL INFORMATION: Calculus of kidney. COMPARISON: X-ray abdomen KUB 09/02/2022 and 04/24/2022. Ultrasound retroperitoneal limited (renal only) 04/24/2022. CT abdomen and pelvis without contrast 03/13/2022. Ultrasound retroperitoneal limited (renal only) 07/01/2021. TECHNIQUE: Real-time imaging of the kidneys. FINDINGS: RIGHT KIDNEY: 10.0 x 5.8 x 5.9 cm (SAG x AP x TRV). The kidney is normal in size and contour. Renal cortical thickness is normal. No calculi or focal parenchymal lesions. No hydronephrosis. There is increased echogenicity of the renal cortex. LEFT KIDNEY: 8.8 x 3.8 x 4.4 cm (SAG x AP x TRV). The kidney is normal in size and contour. Renal cortical thickness is normal. No hydronephrosis. There is increased echogenicity of the renal cortex. Complex cyst with septations and vascularity is seen in the upper pole, measures 4.1 x 1.9 x 4.1 cm, previously measured 3.7 cm in greatest dimension. 2.6 x 2.8 x 3.3 cm simple mid to lower pole cyst requires no follow-up imaging. 0.4 x 0.1 x 0.3 cm nonobstructing upper/mid pole calcification and 0.5 x 0.3 x 0.5 cm nonobstructing mid to lower pole calcification are also seen. US/US renal BI IMPRESSION: 1. Normal appearance of the right kidney. 2. Multiple nonobstructing calculi in the left kidney. 3. 4.1 cm complex cyst in the upper pole of the left kidney. This was thought to be a Bosniak type II cyst based on CT scan of the abdomen and pelvis 03/13/2022.
== END 2022-10-05 08:52 | disposition home or self-care (01) ==
LOC: HO.US 08:51
PROVIDERS: Visit Provider Urology
DX: N20.0 Calculus of kidney (principal)
CPT/HCPCS: 76775

== ENCOUNTER 2022-10-13 13:50 | Outpatient (AMB) | payer BC, SELFPAY ==
[2022-10-13 13:52] VITALS: BP 136/80; PULSE 93; BMI 30.1
--- NOTE | 2022-10-13 13:52 | MHC.OFFVIS ---
Intake Vital Signs 10/13/22 13:52 Height 5 ft Weight 154 lb 5.177 oz BMI 30.1 BP 136/80 Blood Pressure Location Lt brachial Position Sitting Pulse 93 Intake Visit Reasons: follow-up per patient Intake Note: Follow-up per patient c/o chest pain has colonscopy tomorrow Fitting Room Associate Required: No Allergies aspirin Allergy (Unknown, Verified 09/17/22 11:00) vomiting, GI upset Medication List - Last Reconciled 10/13/22 by Jose Morataya MD bisacodyl (Dulcolax (bisacodyl)) 10 mg (2 x 5 mg) PO ONCE 1 day cetirizine 10 mg PO DAILY colchicine (gout) 0.6 mg PO BID docusate sodium (Dulcolax Stool Softener (docusate)) 100 mg PO DAILY PRN fluticasone propionate 50 mcg/actuation 2 sprays intranasal BID hydroxychloroquine Take 2 tabs by mouth once daily 5 days a week and 1 tab by mouth 2 days a week levothyroxine 50 mcg PO DAILY 90 days losartan 50 mg PO BID meclizine 25 mg PO DAILY PRN phenazopyridine (Pyridium) 100 mg PO TID PRN polyethylene glycol 3350 (Miralax) 238 grams PO ONCE 1 day prednisone Take 3 tabs by mouth once daily with breakfast for 1 week then 2 tabs daily for 1 week then 1 tab daily for 1 week then stop HPI HPI Comments History of Present Illness Details Nery comes for follow-up. She continues to intermittent episode of severe chest pain. She is to take ibuprofen for it. She also has diffuse muscle aches and joint aches. She takes ibuprofen for the same. She has been followed by Rheumatology for her lupus and currently on therapy for it as well. Also takes colchicine twice a day. Symptoms are not exertional in nature. She denies any palpitations or lightheadedness or syncope. No shortness of breath. Takes all her medications. [facility] Medical History Dysplasia of cervix, low grade ([place] 1) HTN (hypertension) Hypothyroid Joint pain in fingers of right hand Kidney stones Lupus nephritis Myositis Pericardial effusion Pericardial effusion Pericarditis associated with systemic lupus erythematosus SLE (systemic lupus erythematosus) SLE (systemic lupus erythematosus) UTI (urinary tract infection) Surgical History History of biopsy History of cystoscopy History of kidney surgery History of wisdom tooth extraction Hx of lithotripsy Hx of tubal ligation Family History Father No problems noted. Mother No problems noted. 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 Cognitive needs: No Hearing needs: No Vision needs: Yes Female Reproductive History Menstrual Age of Menarche: 10 Review of Systems Const Denies chills, Denies fatigue, Denies fever(s), Denies frequent falls, Denies weakness, Denies weight gain and Denies weight loss ENT Denies dizziness Card Denies chest pain, Denies leg edema, Denies lightheadedness, Denies palpitations, Denies dyspnea, Denies dyspnea on exertion, Denies orthopnea and Denies other (loss of consciousness) Resp Denies cough, Denies dyspnea and Denies dyspnea on exertion GI Denies hematochezia and Denies change in stool character Musc Denies abnormal gait, Denies muscle weakness, Denies numbness, Denies radiating pain into limb and Denies tingling Neuro Denies abnormal gait, Denies dizziness, Denies frequent falls, Denies numbness, Denies tingling and Denies weakness Endo Denies fatigue and Denies palpitations Physical Exam Vital Signs: Last Vital Signs Pulse 93 10/13/22 13:52 BP 136/80 10/13/22 13:52 BMI result Body Mass Index 30.1 Const General: cooperative, comfortable, no acute distress, alert and awake Nutritional Appearance: overweight Orientation/consciousness: patient oriented x3 Limitations: no limitations Neck Neck: Yes trachea midline, Yes supple and Yes no JVD Resp Effort & Inspection: normal respiratory effort Auscultation: clear to auscultation bilaterally Cardio Jugular venous distension: no JVD Palpation: normal PMI Rate: regular rate Rhythm: regular rhythm Heart sounds: S1 normal heart sound present and S2 normal heart sound present GI Auscultation: normal bowel sounds Skin General skin exam: no rashes or lesions noted Neuro General: patient oriented x3 and no focal motor deficits Extrem General: Yes no clubbing, cyanosis or edema Psych Appearance: grossly normal Office Procedures EKG Details: EKG shows normal sinus rhythm with right bundle-branch block, unchanged from before [id number], Complete Assessment & Plan Assessment & Plan (1) Cardiomyopathy: Code(s): I42.9 - Cardiomyopathy, unspecified Plan: patient prior history of cardiomyopathy normal LV systolic function on neurohormonal modulation. No signs or symptoms of heart failure. Importance of neurohormonal modulation was discussed. Most likely related to autoimmune disease. Continue losartan therapy. Avoidance of cardiotoxic agent was discussed. Signs and symptoms of heart failure were discussed. (2) History of pericarditis: Code(s): Z86.79 - Personal history of other diseases of the circulatory system Plan: Prior history of pericarditis. Patient currently on therapy for lupus. Also on therapy with colchicine. Advised to continue take intermittent nonsteroidal agents for her chest pain. Overall therapeutic treatment has provided her with limited relief. Limitations to therapeutic options were discussed with her. Continue aggressively to treat her underlying autoimmune disease. Will follow up in the clinic in 1 year's time, sooner p.r.n.. Thank you for allowing me to partake in her care Medications: Changed From phenazopyridine (Pyridium) 100 mg PO TID 4 days PRN 12 tabs 0RF spasm To phenazopyridine (Pyridium) 100 mg PO TID PRN spasm Coding Level of Care Code Est Pt Level 4 (93876) Diagnoses Cardiomyopathy I42.9 History of pericarditis Z86.79 CPT Codes EKG - CPT: 25972-[id number], Complete ([id number])
== END 2022-10-13 14:19 | disposition home or self-care (01) ==
PROVIDERS: PCP Internal Medicine; Referring Provider Internal Medicine; Visit Provider Internal Medicine Cardiovascular Disease
DX: I42.9 Cardiomyopathy, unspecified (principal); Z86.79 Personal history of other diseases of the circulatory system
CPT/HCPCS: 93010; 99214

== ENCOUNTER → 2022-10-13 13:50 | Outpatient (BNVA) | payer BC, SELFPAY | PROVIDERS: PCP Internal Medicine; Referring Provider Internal Medicine; Visit Provider Internal Medicine Cardiovascular Disease | DX: I45.10 Unspecified right bundle-branch block (principal); I42.9 Cardiomyopathy, unspecified; M32.12 Pericarditis in systemic lupus erythematosus; U07.0 Vaping-related disorder | CPT/HCPCS: 93005 ==

== ENCOUNTER 2022-10-14 08:08 | Day surgery (SDC) | payer BC, SELFPAY ==
[2022-06-26 09:28] VITALS: BMI 31.4
--- NOTE | 2022-10-12 12:20 | P.CONAN_ITS ---
Documented by User: Simran Bravo NP 10/13/22 12:32 HPI - Anesthesia Eval Consult details Narrative: 46yo F for Upper Endoscopy and Colonoscopy s/p ESWL 08/2022 with GA-LMA 4 SLE with chronic pericarditis. Colchicine BID. Follows with cardiology and rheum - both seen in 2022. No further testing or change in treatment ordered at this time. (OK for surgery per cardiology workload) Chronic opioids Plaquinel for SLE PMFSH Active Problems Active Problems: All Active Problems (Updated 09/17/22 @ 11:26 by Richie Nobles MD) Cervical radiculopathy (Acute) RBBB (Acute) Encounter for management and injection of depo-Provera (Acute) Transaminitis (Acute) Chronic constipation (Acute) Encounter for general adult medical examination with abnormal findings (Acute) Joint stiffness (Acute) Breast screening (Acute) Cardiomyopathy (Acute) History of pericarditis (Acute) Acute pericarditis (Acute) Right flank pain (Acute) Renal calculi (Acute) Acid reflux (Acute) Menorrhagia (Acute) Chronic constipation (Acute) Environmental allergies (Acute) Well woman exam (Acute) Screen for STD (sexually transmitted disease) (Acute) Dizziness (Acute) Tendinitis of left shoulder (Acute) Other specified hypothyroidism (Acute) Painful arc syndrome of left shoulder (Acute) Cervical radiculopathy (Acute) Abnormal uterine bleeding (AUB) (Acute) Complex ovarian cyst (Acute) Cough (Acute) COVID-19 virus infection (Acute) Renal cyst (Acute) Long-term use of hydroxychloroquine (Acute) Pharyngitis (Acute) Otitis media (Acute) Hypothyroid (Acute) Kidney stones (Acute) UTI (urinary tract infection) (Acute) 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 Mother No problems noted. Family history of problems with anesthesia: No Surgical History Surgical History History of biopsy History of cystoscopy History of kidney surgery History of wisdom tooth extraction Hx of lithotripsy Hx of tubal ligation History of Problems with Anesthesia: No Social History Social History Household Members: Significant Other and Children Housing: House Are you a primary progressive care nurse to a significant other at home: No Do you presently have visiting nurse or other home services: No Alcohol intake: never Patient Tobacco Use Status: Current someday Tobacco user Tobacco use type: Cigarette Cigarette Packs Per Day: 0 e-Cigarette/Vaping Use: Currently Using Use of substances other than those prescribed or required for medical reasons: Yes Advance Directives: No Advance Directives Information Provided: Yes service: No Current occupational status: employed 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, 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 Cognitive needs: No Hearing needs: No Vision needs: Yes Meds Allergies Allergy/AdvReac Type Severity Reaction Status Date / Time aspirin Allergy Unknown vomiting, Verified 09/17/22 11:00 GI upset Home Medications Medication Instructions Recorded Confirmed Last Taken Type losartan 50 mg tablet 50 mg PO BID 12/13/19 10/13/22 06/17/20 History fluticasone propionate 50 2 spray intranasal BID 06/17/20 10/13/22 06/17/20 History mcg/actuation nasal spray,suspension cetirizine 10 mg tablet 10 mg PO DAILY 08/12/21 10/13/22 Unknown History meclizine 25 mg tablet 25 mg PO DAILY PRN Insomnia 04/29/22 10/13/22 Unknown History docusate sodium 100 mg capsule 100 mg PO DAILY PRN 09/17/22 10/13/22 Unknown History (Dulcolax Stool Softener (docusate)) phenazopyridine 100 mg tablet 100 mg PO TID PRN spasm 10/13/22 10/13/22 Unknown History (Pyridium) Exam Exam Date and Time: October 12, 2022 1220 Height,Weight and Vital Signs: Height 5 ft Weight 73.028 kg Pertinent Lab Results Pertinent Lab Results: Laboratory Tests 09/11/22 09/11/22 08:11 08:11 WBC 6.2 Hgb 13.2 Hct 40.0 Plt Count 238 Sodium 139 Potassium 4.0 Chloride 108 Carbon Dioxide 19 L BUN 16 Creatinine 0.84 Narrative Narrative: EKG 01/2022 Vent. Rate : 091 BPM ? ? Atrial Rate : 091 BPM ?? P-R Int : 152 ms? QRS Dur : 122 ms ? ? QT Int : 386 ms ? ? ? P-R-T Axes : 036 -18 017 degrees ?? QTc Int : 474 ms ? Normal sinus rhythm Right bundle branch block Abnormal ECG When compared to the previous EKG of No significant changes seen Assessment and Plan Assessment Anesthesia Assessment: Chart Reviewed Final Anesthetic Review Family History of Problems with Anesthesia: No History of Problems with Anesthesia: No Documented by User: Radha Graham MD 10/14/22 09:18 [facility] Past Medical History Medical History Dysplasia of cervix, low grade ([place] 1) HTN (hypertension) Hypothyroid Joint pain in fingers of right hand Kidney stones Lupus nephritis Myositis Pericardial effusion Pericardial effusion Pericarditis associated with systemic lupus erythematosus SLE (systemic lupus erythematosus) SLE (systemic lupus erythematosus) UTI (urinary tract infection) Family History Family History Father No problems noted. Mother No problems noted. Surgical History Surgical History History of biopsy History of cystoscopy History of kidney surgery History of wisdom tooth extraction Hx of lithotripsy Hx of tubal ligation Social History Social History Household Members: Significant Other and Children Housing: House Are you a primary progressive care nurse to a significant other at home: No Do you presently have visiting nurse or other home services: No Alcohol intake: never Patient Tobacco Use Status: Current someday Tobacco user Tobacco use type: Cigarette Cigarette Packs Per Day: 0 e-Cigarette/Vaping Use: Currently Using Use of substances other than those prescribed or required for medical reasons: Yes Advance Directives: No Advance Directives Information Provided: Yes service: No 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 occupational status: employed 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, 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 Cognitive needs: No Hearing needs: No Vision needs: Yes Meds Allergies Allergy/AdvReac Type Severity Reaction Status Date / Time aspirin Allergy Unknown vomiting, Verified 09/17/22 11:00 GI upset Home Medications Medication Instructions Recorded Confirmed Last Taken Type losartan 50 mg tablet 50 mg PO BID 12/13/19 10/13/22 06/17/20 History fluticasone propionate 50 2 spray intranasal BID 06/17/20 10/13/22 06/17/20 History mcg/actuation nasal spray,suspension cetirizine 10 mg tablet 10 mg PO DAILY 08/12/21 10/13/22 Unknown History meclizine 25 mg tablet 25 mg PO DAILY PRN Insomnia 04/29/22 10/13/22 Unknown History docusate sodium 100 mg capsule 100 mg PO DAILY PRN 09/17/22 10/13/22 Unknown History (Dulcolax Stool Softener (docusate)) phenazopyridine 100 mg tablet 100 mg PO TID PRN spasm 10/13/22 10/13/22 Unknown History (Pyridium) Exam Airway Mallampati Class: II (cap top front) TM Dist: >3cm Neck ROM: Full Heart: rrr Lungs: cta Assessment and Plan Assessment Anesthesia Assessment: Anesthesia Plan Discussed Final Anesthetic Review NPO: Yes ASA Class: II Final Preanesthetic Review: No Changes in Pt Med Stat, Meds/Allgs Chart Reviewed and Consent Obtained/Reviewed Patient Risk: Intermediate Procedure Risk: Intermediate Anesthetic Plan Anesthetic Plan: MAC: Disposition: Standard PACU
[2022-10-14 08:51] VITALS: BP 122/79; PULSE 88; RESP 16; TEMP 36.7; O2SAT 99
[2022-10-14] MEDS: Lactated Ringers 1,000 ML 100 ML IVCONT (09:02)
--- NOTE | 2022-10-14 09:44 | MHC.SHP ---
Pre-Procedural Eval Section A Date of Service: 10/14/22 Section B Chief Complaint: reflux,constipation Relevant Family History (Specify if Yes): No Relevant Social History: Other (specify) (vaping) Present Medications: see Short Stay Collaborative assessment Medical History: Significant History (Dysplasia of cervix, low grade ([place] 1) HTN (hypertension) Hypothyroid Joint pain in fingers of right hand Kidney stones Lupus nephritis Myositis Pericardial effusion Pericardial effusion Pericarditis associated with systemic lupus erythematosus SLE (systemic lupus erythematosus) SLE (systemic lupus ) History of Previous Operations: Relevant previous surgery/procedure and date(s) (History of biopsy History of cystoscopy History of kidney surgery History of wisdom tooth extraction Hx of tubal ligation) Allergies: Allergies Allergy/AdvReac Type Severity Reaction Status Date / Time aspirin Allergy Unknown vomiting, Verified 09/17/22 11:00 GI upset Review of Systems Sugical H&P ROS: Negative: Constitution, Cardiovascular, Respiratory, Neurological, Psychiatric, Hem-Onc, Allergic/Immunologic, Gastrointestinal, Genitourinary, Musculoskeletal, Integumentary, Endocrine and Eyes/Ears/Nose/Throat Exam Surgical H&P Exam: Normal: HEENT, Normal: Heart, Normal: Lungs, Normal: Extremities, Normal: Abdomen, Normal: Skin and Normal: Neurological Plan Diagnosis/Plan: Unchanged I have reviewed the history and physical and performed a pertinent physical examination on my patient. No changes have occurred unless specified. Time Spent With Patient Time: Total time managing care of this patient today ____ minutes.
--- NOTE | 2022-10-14 10:27 | P.OP_ITS ---
Operative Note Operative Note Date of Service: 10/14/22 Narrative: Operative Information Procedure Description: EGD, Colonoscopy Indication: GERD, colon screening Anesthesia: MAC FLEXIBLE TRANSORAL UPPER GASTROINTESTINAL ENDOSCOPY AND COLONOSCOPY PROCEDURE NOTE UPPER ENDOSCOPY Consent: Indications for the procedure and potential complications of bleeding, perforation, reaction to medications and missed diagnosis were discussed with the patient and informed consent was obtained. Instrument: Olympus GIF H 190 J mid size upper endoscope Monitoring: Vital signs and clinical assessment, continuous EKG monitoring, Pulse oximetry, Carbon Dioxide monitoring and blood pressure monitoring were done throughout the procedure. Procedure: The patient was placed in the left lateral decubitis position and pre-procedure medications were administered and a bite block was placed. The endoscope was inserted into the mouth and advanced under direct vision to the third part of duodenum. A careful inspection was made as the upper endoscope was withdrawn including a retroflexed examination of the proximal stomach; Findings and interventions are described below. Findings: Larynx:normal Esophagus: GE junction at 37 cm, diaphragm hiatus at 37 cm, bogginess and congestion at GEJ with one small linear erosion noted, bx taken from GEJ, distal and proximal esophagus Stomach: Patchy erythema. Biopsies were obtained. Grade 2 flap valve on retroflexed examination of the cardia. Duodenum: Normal bulb and descending duodenum, Intervention: Biopsies as noted above COLONOSCOPY Instrument: Olympus variable stiffness pediatric scope 190L Colonoscopy Monitoring: Vital signs and clinical assessment, continuous EKG monitoring, Pulse oximetry, Carbon Dioxide monitoring and blood pressure monitoring were done throughout the procedure. Colon withdrawal time was 8 minutes. Procedure: The patient was placed in the left lateral decubitis position and pre-procedure medications were administered. After a digital rectal examination of the ano-rectum, the video colonoscope was inserted into the rectum and advanced through the colon to the cecum/TI. The colonoscope was slowly withdrawn in a retrograde panoramic fashion and the colon mucosa was carefully examined including a retroflexed view of the rectum. Findings and interventions are described below. Procedure Difficulty:easy Findings: Terminal Ileum-normal Cecum:normal Ascending Colon: normal Transverse Colon -normal Descending Colon:normal Sigmoid Colon: normal Rectum: Retroflexion with small internal hemorrhoids, grade I Anorectum - normal Colon preparation: Sprakers Bowel Preparation Scale Right colon; 2 Transverse colon: 3 Left colon; 3 (0 = Unprepared colon segment with mucosa not seen due to solid stool that cannot be cleared. 1 = Portion of mucosa of the colon segment seen, but other areas of the colon segment not well seen due to staining, residual stool and/or opaque liquid. 2 = Minor amount of residual staining, small fragments of stool and/or opaque liquid, but mucosa of colon segment seen well. 3 = Entire mucosa of colon segment seen well with no residual staining, small fragments of stool or opaque liquid) Impression and Post Procedure Diagnosis: Endoscopy Findings: gastritis erosive esophagitis Colonoscopy Findings: internal hemorrhoids Plan: Await Pathology results Repeat Colonoscopy in 10 years or earlier if clinically indicated High fiber diet leaflet avoid straining at stool, epsom salts and sitz bath, anusol supps or cream confirm if taking PPI or not, if not taking consider trial if h pylori pos then treat Above findings were reviewed with the patient and relevant handouts were provided if indicated.
[2022-10-14 10:32] VITALS: BP 101/54; PULSE 85; RESP 18; TEMP 36.3; O2SAT 98
[2022-10-14 10:47] VITALS: BP 118/78; PULSE 85; RESP 18; TEMP 36.8; O2SAT 99
[2022-10-14 11:02] VITALS: BP 127/76; PULSE 82; RESP 18; TEMP 36.9; O2SAT 100
== END 2022-10-14 11:28 | disposition home or self-care (01) ==
PROVIDERS: PCP Internal Medicine; Visit Provider Internal Medicine Gastroenterology
PROC: (CPT 45378; principal; 2022-10-14 10:10)
DX: Z12.11 Encounter for screening for malignant neoplasm of colon (principal); K64.0 First degree hemorrhoids; K59.09 Other constipation; K21.9 Gastro-esophageal reflux disease without esophagitis; K29.50 Unspecified chronic gastritis without bleeding; K20.80 Other esophagitis without bleeding; K44.9 Diaphragmatic hernia without obstruction or gangrene; I10 Essential (primary) hypertension; M32.14 Glomerular disease in systemic lupus erythematosus; N20.0 Calculus of kidney; M32.12 Pericarditis in systemic lupus erythematosus; M32.9 Systemic lupus erythematosus, unspecified; I31.39 Other pericardial effusion (noninflammatory); E03.9 Hypothyroidism, unspecified; Z79.51 Long term (current) use of inhaled steroids; Z79.899 Other long term (current) drug therapy; Z88.8 Allergy status to other drugs, medicaments and biological substances; F17.210 Nicotine dependence, cigarettes, uncomplicated; Z98.890 Other specified postprocedural states
CPT/HCPCS: 45378; 43239; 88305; 88342

== ENCOUNTER → 2022-10-14 08:08 | Outpatient (BNV) | payer BC, SELFPAY | PROVIDERS: PCP Internal Medicine; Visit Provider Internal Medicine Gastroenterology | DX: K21.9 Gastro-esophageal reflux disease without esophagitis (principal); Z12.11 Encounter for screening for malignant neoplasm of colon; K64.8 Other hemorrhoids | CPT/HCPCS: 43239; 45378 ==

== ENCOUNTER 2022-10-15 08:32 | Outpatient (REF) | payer BC, SELFPAY ==
--- NOTE | ~2022-10-15 | XR_ITS ---
EXAMINATION: XR ELBOW, RIGHT CLINICAL INFORMATION: Systemic lupus erythematosus. COMPARISON: None available. TECHNIQUE: AP, lateral, and oblique views of the right elbow. FINDINGS: The bones and soft tissues are normal. No fracture or joint effusion. Alignment is anatomic. Joint spaces are maintained. XR/XR elbow RT min 3V IMPRESSION: Normal right elbow.
--- NOTE | ~2022-10-15 | XR_ITS ---
X-RAY BILATERAL SHOULDERS CLINICAL HISTORY: Systemic lupus erythematosus. COMPARISON: Radiograph left shoulder 11/04/2021. TECHNIQUE: 4 views of each shoulder. FINDINGS: No acute fractures or malalignment. No significant joint space narrowing or osseous spurring. No osseous erosions. No abnormal soft tissue calcifications. No significant soft tissue abnormality. XR/XR shoulder LT min 2V IMPRESSION: Normal radiographic examination of both shoulders.
--- NOTE | ~2022-10-15 | XR_ITS ---
X-RAY LEFT KNEE X-RAY BILATERAL KNEES STANDING VIEW CLINICAL HISTORY: Systemic lupus erythematosus. COMPARISON: Radiograph left knee and right knee 09/18/2019. TECHNIQUE: 3 views of the left knee. AP standing view of both knees. FINDINGS: Mild joint space narrowing of the medial compartment in both knees. No significant osseous spurring or erosions. No abnormal soft tissue calcifications. Trace amount of joint effusion in the left knee. XR/XR knee standing BI IMPRESSION: 1. Mild joint space narrowing in the medial compartment of both knees. 2. Trace amount of joint effusion in the left knee.
--- NOTE | ~2022-10-15 | XR_ITS ---
X-RAY BILATERAL FEET CLINICAL HISTORY: Systemic lupus erythematosus. COMPARISON: Radiograph bilateral ankles 09/18/2019. TECHNIQUE: 3 views of each foot. FINDINGS: No acute fractures or subluxation. No significant joint space narrowing, bony spurring or osseous erosions. No abnormal soft tissue calcifications. XR/XR foot RT min 3V IMPRESSION: Normal radiographic examination of each foot.
--- NOTE | ~2022-10-15 | XR_ITS ---
X-RAY BILATERAL SHOULDERS CLINICAL HISTORY: Systemic lupus erythematosus. COMPARISON: Radiograph left shoulder 11/04/2021. TECHNIQUE: 4 views of each shoulder. FINDINGS: No acute fractures or malalignment. No significant joint space narrowing or osseous spurring. No osseous erosions. No abnormal soft tissue calcifications. No significant soft tissue abnormality. XR/XR shoulder RT min 2V IMPRESSION: Normal radiographic examination of both shoulders.
--- NOTE | ~2022-10-15 | XR_ITS ---
X-RAY LEFT KNEE X-RAY BILATERAL KNEES STANDING VIEW CLINICAL HISTORY: Systemic lupus erythematosus. COMPARISON: Radiograph left knee and right knee 09/18/2019. TECHNIQUE: 3 views of the left knee. AP standing view of both knees. FINDINGS: Mild joint space narrowing of the medial compartment in both knees. No significant osseous spurring or erosions. No abnormal soft tissue calcifications. Trace amount of joint effusion in the left knee. XR/XR knee LT 3V IMPRESSION: 1. Mild joint space narrowing in the medial compartment of both knees. 2. Trace amount of joint effusion in the left knee.
--- NOTE | ~2022-10-15 | XR_ITS ---
X-RAY BILATERAL FEET CLINICAL HISTORY: Systemic lupus erythematosus. COMPARISON: Radiograph bilateral ankles 09/18/2019. TECHNIQUE: 3 views of each foot. FINDINGS: No acute fractures or subluxation. No significant joint space narrowing, bony spurring or osseous erosions. No abnormal soft tissue calcifications. XR/XR foot LT min 3V IMPRESSION: Normal radiographic examination of each foot.
== END 2022-10-15 08:33 | disposition home or self-care (01) ==
LOC: HO.XRAY 08:32
PROVIDERS: PCP Internal Medicine; Visit Provider Student in an Organized Health Care Education/Training Program
DX: M32.9 Systemic lupus erythematosus, unspecified (principal)
CPT/HCPCS: 73030; 73080; 73562; 73564; 73565; 73630

== ENCOUNTER 2022-10-16 10:51 | Outpatient (AMB) | payer BC, SELFPAY ==
--- NOTE | 2022-10-16 11:04 | MHC.OFFVIS ---
Intake Intake Visit Reasons: 6 weeks ESWL/ US(set) Intake Note: Patient is present for Follow Up Urology Med: None Antibiotic Allergy: None Blood Thinner: None Pharmacy: [facility] Allergies aspirin Allergy (Unknown, Verified 10/16/22 11:05) vomiting, GI upset HPI HPI Comments History of Present Illness Details Nery very pleasant female. She is seen for the following urologic conditions - nephrolithiasis - complex renal cyst Follow-up from right ESWL Ultrasound shows no stone on right side Left side with complex renal cyst 6 month follow-up imaging Nephrolithiasis Recurrent nephrolithiasis 08/05 presented to emergency department with right-sided flank pain Imaging - 07/05 CT scan left 2.4 cm renal cysts, 6 mm distal right ureteric stone with mild hydroureteronephrosis, 6 mm right renal stone - 09/04 renal ultrasound 6 mm stone in renal pelvis - 09/06 renal ultrasound no stone right, left side complex renal cyst Interventions - 08/05 right ureteroscopy laser lithotripsy Stone analysis - unknown Therapeutic plan - on B6 - surveillance imaging PFSH Medical History Dysplasia of cervix, low grade (BER[place] 1) HTN (hypertension) Hypothyroid Joint pain in fingers of right hand Kidney stones Lupus nephritis Myositis Pericardial effusion Pericardial effusion Pericarditis associated with systemic lupus erythematosus SLE (systemic lupus erythematosus) SLE (systemic lupus erythematosus) UTI (urinary tract infection) Surgical History History of biopsy History of cystoscopy History of kidney surgery History of wisdom tooth extraction Hx of lithotripsy Hx of tubal ligation Family History Father No problems noted. Mother No problems noted. 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 Cognitive needs: No Hearing needs: No Vision needs: Yes Female Reproductive History Menstrual Age of Menarche: 10 Review of Systems Const Denies chills and Denies fever(s) Card Reports no additional complaints and Denies syncope Resp Denies cough GI Denies abdominal pain and Denies heartburn Reports as per HPI and Denies change in libido Neuro Denies syncope Psych Denies change in libido Endo Denies change in libido Physical Exam Const General: cooperative, healthy appearing, comfortable and no acute distress Orientation/consciousness: patient oriented x3 HEENT Face and sinus: Yes normal facial exam Mouth: moist mucous membranes Neck Neck: Yes normal visual inspection, Yes full ROM and Yes trachea midline Chest Chest palpation & inspection: normal inspection of the chest Resp Effort & Inspection: normal respiratory effort, able to speak in complete sentences and no respiratory distress GI Inspection: Yes normal to inspection Back/Spine/Pelvis Cervical Spine: normal cervical lordosis Thoracic/Lumbar Spine: thoracic and lumbar spine normal to inspection Skin General skin exam: no rashes or lesions noted Neuro General: patient oriented x3, gait normal, tone normal and moves all extremities Extrem General: Yes normal to inspection and Yes capillary refill normal Assessment & Plan Assessment & Plan (1) Kidney stones: Code(s): N20.0 - Calculus of kidney (2) Renal cyst: Code(s): N28.1 - Cyst of kidney, acquired Plan Six month follow-up imaging Orders: Orders Blood Urea Nitrogen 6 Months N28.1 - Cyst of kidney, acquired Creatinine 6 Months N28.1 - Cyst of kidney, acquired CT abdomen wo/w IV con 6 Months N28.1 - Cyst of kidney, acquired Patient Instructions: Imaging studies, laboratory and physical exam results were discussed and reviewed in detail. No major barriers to patient understanding were identified. An opportunity to ask questions regarding the treatment plan was provided. All questions were answered. The patient expressed understanding and agreement with the above treatment plan. The patient is aware they should contact our office by phone for worsening of their current condition or the appearance of new urologic symptoms. Compliance is encouraged with any medications and followup testing that is ordered. It is a privilege to participate in the urologic care of your patient. If you have any questions or concerns regarding treatment for the above conditions, or other urologic issues, please do not hesitate to contact me. The office telephone contact is [phone]. This note is constructed using voice recognition software. While every effort has been made to ensure accuracy core inspector errors may have been included. Yours sincerely, Dr Julio Sutton MD, [facility] - Urology Providers of Expert, Compassionate Care for the Genitourinary System Coding Level of Care Code Est Pt Level 3 (99234) Diagnoses Kidney stones N20.0 Renal cyst N28.1
== END 2022-10-16 11:33 | disposition home or self-care (01) ==
PROVIDERS: PCP Internal Medicine; Visit Provider Urology
DX: N20.0 Calculus of kidney (principal); N28.1 Cyst of kidney, acquired
CPT/HCPCS: 99024

== ENCOUNTER → 2022-10-16 10:51 | Outpatient (BNVA) | payer BC, SELFPAY | PROVIDERS: PCP Internal Medicine; Visit Provider Urology ==

== ENCOUNTER 2022-10-26 09:34 | Outpatient (AMB) | payer BC, SELFPAY ==
--- NOTE | 2022-10-26 09:38 | MHC.OFFVIS ---
Intake Intake Visit Reasons: S/p colon- [facility] Allergies aspirin Allergy (Unknown, Verified 10/16/22 11:05) vomiting, GI upset Medication List - Last Reconciled 10/26/22 by Autumn Pedraza PA-C cetirizine 10 mg PO DAILY colchicine (gout) 0.6 mg PO BID docusate sodium (Dulcolax Stool Softener (docusate)) 100 mg PO DAILY PRN fluticasone propionate 50 mcg/actuation 2 sprays intranasal BID hydroxychloroquine Take 2 tabs by mouth once daily 5 days a week and 1 tab by mouth 2 days a week levothyroxine 50 mcg PO DAILY 90 days losartan 50 mg PO BID meclizine 25 mg PO DAILY PRN pantoprazole 40 mg PO DAILY phenazopyridine (Pyridium) 100 mg PO TID PRN prednisone Take 3 tabs by mouth once daily with breakfast for 1 week then 2 tabs daily for 1 week then 1 tab daily for 1 week then stop HPI HPI Comments History of Present Illness Details A 46 y/o female f/u after EGD/ colonoscopy- Dr. Kent She c/o constipation-HFD- consistent with bowel regimen-she does not use miralax- she is following with pcp for thyroid appetite is good- she was switched to pantoprazole -was not covered by insurance- she admits she was not taking omeprazole- only took when she had heartburn No other GI or general . 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 Mother No problems noted. 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 Cognitive needs: No Hearing needs: No Vision needs: Yes Female Reproductive History Menstrual Age of Menarche: 10 Review of Systems Const All systems reviewed & are unremarkable except as noted in HPI and below Card Denies chest pain and Denies dyspnea Resp Denies dyspnea GI Denies abdominal pain, Reports bloating, Reports constipation, Reports heartburn, Denies nausea and Denies vomiting Physical Exam Const General: cooperative, healthy appearing, comfortable and no acute distress Orientation/consciousness: patient oriented x3 Limitations: no limitations Eyes Sclerae: sclerae normal Resp Effort & Inspection: normal respiratory effort and able to speak in complete sentences Skin General skin exam: no rashes or lesions noted Neuro General: patient oriented x3 Extrem General: Yes full ROM Psych Appearance: grossly normal and well kempt Mental Status: mental status grossly normal Speech and movement: Normal speech and movement present and Clear speech present Affect: normal affect Attitude: cooperative Thought process: Normal thought process present Thought content: Normal thought content present Insight: Good insight present (Psych) Judgement: Good judgement present (Psych) Results Reviewed Results Reviewed: Impression and Post Procedure Diagnosis: Endoscopy Findings: gastritis erosive esophagitis Colonoscopy Findings: internal hemorrhoids Plan: Await Pathology results Repeat Colonoscopy in 10 years or earlier if clinically indicated High fiber diet leaflet avoid straining at stool, epsom salts and sitz bath, anusol supps or cream confirm if taking PPI or not, if not taking consider trial if h pylori pos then treat Above findings were reviewed with the patient and relevant handouts were provided if indicated. eth Age/Sex: 46/F Attending: Scar Kent MD : 1975 Submitted by: Scar Kent MD Copies to: Bryant Alejandra MD MR #: [id number] Status: [facility] Collected: 10/14/22 Location: [facility] Received: 10/14/22 Diagnosis A. Stomach, biopsy: Mild chronic inactive gastritis, no evidence of H. pylori, intestinal metaplasia, or dysplasia. B. Gastroesophageal junction, biopsy: Inflamed squamocolumnar junctional mucosa, no evidence of intestinal metaplasia or dysplasia. C. Esophagus, distal, biopsy: Esophageal squamous mucosa with no diagnostic alteration, no evidence of active esophagitis. D. Esophagus, proximal, biopsy: Esophageal squamous mucosa with no diagnostic alteration, no evidence of active esophagitis. Clinical History Pre-Op Dx: Screening, GERD Post-Op Dx: Gastritis, erosive esophagitis, hemorrhoids Microscopic Description Microscopic sections reviewed. H. pylori immunostain performed on part a is negative. Material Received A. Bx stomach B. Bx GE junction C. Bx distal esophagus D. Bx proximal esophagus Gross Description The specimens are received in formalin in 4 parts all labeled with the patient's name and date of . Part A is additionally labeled biopsy stomach and consists of multiple fragments of yellow-kamara soft tissue measuring up to 0.4 cm in greatest dimension. The entire specimen is submitted in A. Part B is additionally labeled GE junction biopsy and consists of multiple fragments of yellow soft tissue measuring up to 0.2 cm in greatest dimension. The entire specimen is submitted in B. Part C is additionally labeled biopsy distal esophagus and consists of multiple fragments of yellow soft tissue measuring up to 0.2 cm in greatest dimension. The entire specimen is submitted in C. Part D is additionally labeled biopsy proximal esophagus and consists of multiple fragments of white Patient: Nery Joseph Age/Sex: 46/F MR#: [id number] Page 1 of 2 Assessment & Plan Assessment & Plan (1) Chronic constipation: Comment: Consistent bowel regimen-maintain high-fiber diet- Citrucel Code(s): K59.09 - Other constipation (2) Esophagitis: Code(s): K20.90 - Esophagitis, unspecified without bleeding Plan: omeprazole 40 mg- QD- reenforced Plan [id number] mcg- HFD omeprazole 40 mg QD Reflux precautions Avoid culprits Asymptomatic colonoscopy 10 years Medications: New docusate sodium (Colace) 200 mg (2 x 100 mg) PO BEDTIME 60 caps 5RF omeprazole 40 mg (2 x 20 mg) PO DAILY 30 days 60 caps 5RF linaclotide (Linzess) 290 mcg PO QAM 30 days 30 caps 2RF Changed From docusate sodium (Dulcolax Stool Softener (docusate)) 100 mg PO DAILY PRN To docusate sodium (Dulcolax Stool Softener (docusate)) 200 mg PO DAILY Patient Instructions: [id number] mcg- insurance constraints discussed HFD omeprazole 40 mg QD Reflux precautions Avoid culprits Asymptomatic colonoscopy 10 years Call with any questions or concerns Coding Level of Care Code Est Pt Level 3 (16168) Diagnoses Chronic constipation K59.09 Esophagitis K20.90 Time Spent (min) 25
== END 2022-10-26 10:01 | disposition home or self-care (01) ==
PROVIDERS: PCP Internal Medicine; Visit Provider Physician Assistant
DX: K59.09 Other constipation (principal); K20.90 Esophagitis, unspecified without bleeding
CPT/HCPCS: 99213

== ENCOUNTER → 2022-10-26 09:34 | Outpatient (BNVA) | payer BC, SELFPAY | PROVIDERS: PCP Internal Medicine; Visit Provider Physician Assistant ==

== ENCOUNTER 2022-11-04 08:59 | Outpatient (AMB) | payer BC, SELFPAY ==
--- NOTE | 2022-11-04 09:04 | A.OFFPC_ITS ---
Vital Signs 11/04/22 09:07 Height 5 ft Weight 153 lb 6 oz BMI 30.0 BP 104/72 Blood Pressure Location Rt brachial Position Sitting Pulse 88 Pulse Source Pulse Oximeter Pulse Oximetry (%) 100 Oxygen Delivery Method Room Air Intake Visit Reasons: Physical exam Allergies aspirin Allergy (Unknown, Verified 11/04/22 09:05) vomiting, GI upset Medication List - Last Reconciled 11/04/22 by Bryant Alejandra MD cetirizine 10 mg PO DAILY colchicine (gout) 0.6 mg PO BID docusate sodium (Colace) 200 mg (2 x 100 mg) PO BEDTIME docusate sodium (Dulcolax Stool Softener (docusate)) 200 mg PO DAILY fluticasone propionate 50 mcg/actuation 2 sprays intranasal BID hydroxychloroquine Take 2 tabs by mouth once daily 5 days a week and 1 tab by mouth 2 days a week levothyroxine 50 mcg PO DAILY 90 days linaclotide (Linzess) 290 mcg PO QAM 30 days losartan 50 mg PO BID meclizine 25 mg PO DAILY PRN omeprazole 40 mg (2 x 20 mg) PO DAILY 30 days pantoprazole 40 mg PO DAILY phenazopyridine (Pyridium) 100 mg PO TID PRN Tobacco use date assessed: 11/04/22 Dental Screening Dental Screen Date: 11/04/22 Did you have a dental visit in the last 12 months?: Yes Did you have a dental problem in the last 6 months where you did not have access to dental care?: No Was dental information given to patient?: Patient has dentist HPI Physical exam HPI Details Physical exam appointment 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 Patient continued to have aches and pains all over her joints and back She is taking industrial trainer and is taking hydroxychloroquine. I am starting her on gabapentin 100 mg capsule at night patient may double the dose to 200 mg if she is tolerating after 7-10 days. Thirty capsules sent. We will book a follow-up appointment in 2 weeks tele medicine. Mammogram is up-to-date, colonoscopy is up-to-date at [facility] that was just done 3 weeks ago next 1 will be in 10 years Patient is seeing [facility]. Hypothyroidism: She is due for TSH level which I have ordered for her. Follow-up 1 year physical exam. Only medication coming from PCP office is levothyroxine and now gabapentin. 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 Mother No problems noted. 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 1. Little interest or pleasure in doing things: several days 2. Feeling down, depressed, or hopeless: not at all 3. Trouble falling or staying asleep, or sleeping too much: nearly every day 4. Feeling tired or having little energy: more than half the days 5. Poor appetite or overeating: nearly every day 6. Feeling bad about yourself - or that you are a failure or have let yourself or your family down: not at all 7. Trouble concentrating on things, such as reading the newspaper or watching television: not at all 8. Moving or speaking so slowly that other people could have noticed. Or the opposite - being so fidgety or restless that you have been moving around a lot more than usual: more than half the days 9. Thoughts that you would be better off or of hurting yourself in some way: not at all Total score: 11 Depression Screening Interpretation: Negative 06554 - PHQ-9 Billing: Yes Source: Developed by Drs. Gary Winters, Juany Larsen, John Paul Godoy and colleagues, with an educational matt from [employer] Thrive Questionnaire Date Thrive assessed: 11/04/22 I am a: Patient What is your living situation today?: I have a steady place to live Within the past 12 months, did the food you bought not last and you didn't have the money to get more?: Sometimes True Within the past 12 months, did you worry whether your food would run out before you got money to buy more?: Sometimes True Do you have trouble paying for medicines?: Yes Do you have trouble getting transportation to medical appointments?: No Do you have trouble paying your heating and electricity bill?: No Do you have trouble taking care of your child, family member or friend?: No Do you have trouble with day-to-day activities such as bathing, preparing meals, shopping, managing finances, etc.?: Yes Are you currently unemployed and looking for a job?: No Are you interested in more education?: Yes AUDIT C Alcohol Use Questionnaire (AUDIT-C) 1. How often do you have a drink containing alcohol?: Never 3. How often do you have six or more drinks on one occasion?: Never Total Score: 0 Score Reviewed/Action Taken: Yes SILVANA-7 AMB Questionnaire SILVANA-7 Date SILVANA - 7 assessed: 11/04/22 Feeling nervous, anxious, or on edge: 0 = Not at all Not being able to stop or control worryin = Not at all Worrying too much about different things: 1 = Several days Trouble relaxin = Several days Being so restless that it is hard to sit still: 0 = Not at all Becoming easily annoyed or irritable: 0 = Not at all Feeling afraid as if something awful might happen: 0 = Not at all Total SILVANA-7 score (0-4 normal; 5-9 mild; 10-14 moderate; 15-21 severe): 2 Source: Developed by Drs. Gary Winters, Juany Larsen, John Palu Godoy and colleagues, with an educational matt from [employer] SILVANA-7 Assessment Billing SILVANA-7 Assessment Tool: SILVANA-7 Assessment 77250 Review of Systems Const Denies chills, Denies fever(s) and Denies headache(s) Eyes Denies blurry vision ENT Denies headache(s), Denies nasal discharge, Denies nasal obstruction, Denies odynophagia and Denies sinus pain Card Denies chest pain at rest and Denies chest pain with activity Resp Denies cough and Denies hemoptysis GI Denies diarrhea, Denies odynophagia, Denies vomiting and Denies hematemesis Reports as per HPI Musc Denies abnormal gait Skin/Breast Reports as per HPI Neuro Denies Neuro-related abnormal movements, Denies Abnormal speech present, Denies abnormal gait, Denies headache(s) and Denies Sensory deficit (Neuro) Psych Denies mood swings and Denies paranoia Endo Reports as per HPI Iván/Lymph Reports as per HPI Aller/Immun Reports as per HPI Physical exam (Primary Care) Vital Signs: Last Vital Signs Pulse 88 11/04/22 09:07 BP 104/72 11/04/22 09:07 Pulse Ox 100 11/04/22 09:07 Oxygen Delivery Method Room Air 11/04/22 09:07 BMI result Body Mass Index 30.0 Tobacco/Smoking Status: Tobacco use Status Tobacco use date assessed 11/04/22 11/04/22 09:06 Patient Tobacco Use Status Current someday Tobacco 11/04/22 09:06 Tobacco use type Cigarette 11/04/22 09:06 e-Cigarette/Vaping Use Currently Using 11/04/22 09:06 PHQ-9: PHQ-9 Score PHQ-9: Total score 11 11/04/22 10:42 Depression Screening Interpretation: Negative Thrive Assessment: Date of Thrive Assessment Date Thrive assessed 11/04/22 11/04/22 09:37 Const General: cooperative, comfortable and no acute distress Orientation/consciousness: patient oriented x3 HENMT Head: Yes normocephalic and Yes atraumatic Eyes General: appearance normal, both eyes and all related structures Pupils: Equal, round and reactive pupils present EOM: EOMs intact bilaterally Neck Neck: Yes supple and No lymphadenopathy Thyroid: Thyroid normal Lymphatic: no lymphadenopathy noted Resp Effort & Inspection: normal respiratory effort and able to speak in complete sentences Auscultation: clear to auscultation bilaterally Cardio Heart sounds: S1 normal heart sound present and S2 normal heart sound present GI Palpation (GI): Soft to palpation and nontender Auscultation: normal bowel sounds General: Yes no CVA tenderness Back/Spine/Pelvis Back: no CVA tenderness Skin General skin exam: elasticity normal and turgor normal Neuro General: patient oriented x3 and gait normal Cranial nerves: Yes Equal, round and reactive pupils present Speech: No Abnormal speech present Sensory Exam: No Sensory deficit (Neuro) Coordination: tandem gait normal and Romberg test negative Extrem General: Yes normal exam except as noted and No edema Assessment and Plan Assessment & Plan (1) Encounter for general adult medical examination with abnormal findings: Code(s): Z00.01 - Encounter for general adult medical examination with abnormal findings (2) Hypothyroid: Code(s): E03.9 - Hypothyroidism, unspecified Qualifiers: Hypothyroidism type: unspecified Qualified Code(s): E03.9 - Hypothyroidism, unspecified (3) Lupus nephritis: Code(s): M32.14 - Glomerular disease in systemic lupus erythematosus (4) Pericarditis associated with systemic lupus erythematosus: Code(s): I31.9 - Disease of pericardium, unspecified; M32.12 - Pericarditis in systemic lupus erythematosus Qualifiers: Chronic pericarditis complication: unspecified complication status Chronicity: chronic Qualified Code(s): M32.12 - Pericarditis in systemic lupus erythematosus (5) SLE (systemic lupus erythematosus): Comment: dx in her teens (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, most recent kidney biopsy in 2002 with no active features of lupus nephritis with ongoing proteinuria, body aches, pericarditis with effusion that required pericardial window, abnormal nailfold capillaroscopy +++SSa) Code(s): M32.9 - Systemic lupus erythematosus, unspecified Qualifiers: Systemic lupus erythematosus organ involvement: pericarditis Systemic lupus erythematosus type: other Qualified Code(s): M32.12 - Pericarditis in systemic lupus erythematosus (6) Cardiomyopathy: Code(s): I42.9 - Cardiomyopathy, unspecified Qualifiers: Cardiomyopathy type: unspecified Qualified Code(s): I42.9 - C ardiomyopathy, unspecified (7) Other specified hypothyroidism: Code(s): E03.8 - Other specified hypothyroidism (8) Nephropathy associated with another disease: Code(s): N08 - Glomerular disorders in diseases classified elsewhere (9) Arthrosis: Code(s): M19.90 - Unspecified osteoarthritis, unspecified site (10) Chronic pain: Code(s): G89.29 - Other chronic pain Qualifiers: Chronic pain type: chronic pain syndrome Qualified Code(s): G89.4 - Chronic pain syndrome Plan Physical exam appointment 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 Patient continued to have aches and pains all over her joints and back She is taking industrial trainer and is taking hydroxychloroquine. I am starting her on gabapentin 100 mg capsule at night patient may double the d ose to 200 mg if she is tolerating after 7-10 days. Thirty capsules sent. We will book a follow-up appointment in 2 weeks tele medicine. Mammogram is up-to-date, colonoscopy is up-to-date at [facility] that was just done 3 weeks ago next 1 will be in 10 years Patient is seeing [facility]. Hypothyroidism: She is due for TSH level which I have ordered for her. Follow-up 1 year physical exam. Only medication coming from PCP office is levothyroxine and now gabapentin. Orders: Orders TSH reflex Free T4 Today E03.9 - Hypothyroidism, unspecified, I31.9 - Disease of pericardium, unspecified, M32.12 - Pericarditis in systemic lupus erythematosus, M32.14 - Glomerular disease in systemic lupus erythematosus, M32.9 - Systemic lupus erythematosus, unspecified Medications: New 2 gabapentin 100 mg PO BEDTIME 30 caps 0RF Coding Level of Care Code Est Pt Prev Care 40-64y(51991) Diagnoses Encounter for general adult medical examination with abnormal findings Z00.01 Hypothyroidism, unspecified type E03.9 Hypothyroidism type: unspecified 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 Chronic pericarditis associated with systemic lupus erythematosus (SLE), unspecified complication status M32.12 Chronic pericarditis complication: unspecified complication status Chronicity: chronic Other systemic lupus erythematosus with pericarditis M32.12 Systemic lupus erythematosus organ involvement: pericarditis Systemic lupus erythematosus type: other Cardiomyopathy, unspecified type I42.9 Cardiomyopathy type: unspecified Other specified hypothyroidism E03.8 Nephropathy associated with another disease N08 Arthrosis M19.90 Chronic pain syndrome G89.4 Chronic pain type: chronic pain syndrome Additional Codes SILVANA-7 Assessment Billing - SILVANA-7 Assessment Tool: SILVANA-7 Assessment 70405 ([id number])
[2022-11-04 09:07] VITALS: BP 104/72; PULSE 88; O2SAT 100
== END 2022-11-04 09:32 | disposition home or self-care (01) ==
PROVIDERS: Visit Provider Internal Medicine
DX: Z00.01 Encounter for general adult medical examination with abnormal findings (principal); E03.9 Hypothyroidism, unspecified; M32.14 Glomerular disease in systemic lupus erythematosus; M32.12 Pericarditis in systemic lupus erythematosus; I42.9 Cardiomyopathy, unspecified; E03.8 Other specified hypothyroidism; N08 Glomerular disorders in diseases classified elsewhere; M19.90 Unspecified osteoarthritis, unspecified site; G89.4 Chronic pain syndrome
CPT/HCPCS: 99396

== ENCOUNTER 2022-11-04 09:33 | Outpatient (REF) | payer BC, SELFPAY ==
[2022-11-04 13:23] LABS: TSH reflex Free T4 1.38 uIU/mL (0.32-4.0)
== END 2022-11-04 09:34 | disposition home or self-care (01) ==
LOC: HO.HMGCLDS 09:33
PROVIDERS: PCP Internal Medicine; Visit Provider Internal Medicine
DX: E03.9 Hypothyroidism, unspecified (principal); M32.14 Glomerular disease in systemic lupus erythematosus; I31.9 Disease of pericardium, unspecified; M32.12 Pericarditis in systemic lupus erythematosus; M32.9 Systemic lupus erythematosus, unspecified
CPT/HCPCS: 36415; 84443

== ENCOUNTER 2022-11-16 18:13 | Outpatient (REF) | payer BC, SELFPAY ==
--- NOTE | ~2022-11-16 | MR_ITS ---
EXAMINATION: MR CERVICAL SPINE WITHOUT CONTRAST CLINICAL INFORMATION: Neck pain and radiculopathy. COMPARISON: X-ray cervical spine from 01/14/2016. TECHNIQUE: Multiplanar, multisequential imaging of the cervical spine was performed without contrast. Limited study with motion artifacts. FINDINGS: VERTEBRAL BODIES AND PARASPINAL SOFT TISSUES: The marrow signal is homogeneous. There is a mild reversal of the normal cervical lordosis. Rightward curvature of the cervical spine noted. No compression fractures are seen. Mild multilevel disc space narrowing evident with reduced intradiscal signal. The paraspinal soft tissues are unremarkable. The vertebral artery flow voids are maintained. The imaged lung apices are grossly clear. CERVICOMEDULLARY JUNCTION AND VISUALIZED POSTERIOR FOSSA: The craniovertebral junction and imaged portions of the brain parenchyma appear normal. No cord signal abnormality or syrinx is seen. SPINAL LEVELS: C2-C3: Posterior subluxation and small central disc protrusion noted without central canal stenosis or foraminal narrowing. C3-C4: Minimal anterolisthesis and mild disc bulge with endplate spurring. No central canal stenosis or neural encroachment. C4-C5: Retrosubluxation and disc-osteophyte complex mildly impresses upon the ventral cord and thecal sac without central canal stenosis. [id number] bilateral foraminal narrowing. C5-C6: Focal right paracentral disc protrusion. No central canal stenosis. Patent foramina. C6-C7 and C7-T1: No disc pathology. No central canal stenosis or foraminal narrowing. MR/MR cervical spine wo con IMPRESSION: Limited study with motion artifacts. Mild multilevel cervical spondylosis and reversal of the normal cervical lordosis. Small disc protrusions at the C2-C3 and C5-C6 levels. Eimr-[id number] foraminal narrowing at the C4-C5 level.
== END 2022-11-16 18:14 | disposition home or self-care (01) ==
LOC: HO.MRI 18:13
PROVIDERS: PCP Internal Medicine; Visit Provider Student in an Organized Health Care Education/Training Program
DX: M54.12 Radiculopathy, cervical region (principal)
CPT/HCPCS: 72141

== ENCOUNTER 2022-11-19 08:03 | Outpatient (AMB) | payer BC, SELFPAY ==
--- NOTE | 2022-11-19 08:16 | A.OFFPC_ITS ---
Intake Visit Reasons: 2 week follow up Allergies aspirin Allergy (Unknown, Verified 11/19/22 08:16) vomiting, GI upset Medication List - Last Reconciled 11/19/22 by Bryant Alejandra MD cetirizine 10 mg PO DAILY colchicine (gout) 0.6 mg PO BID docusate sodium (Colace) 200 mg (2 x 100 mg) PO BEDTIME docusate sodium (Dulcolax Stool Softener (docusate)) 200 mg PO DAILY fluticasone propionate 50 mcg/actuation 2 sprays intranasal BID gabapentin 100 mg PO BEDTIME hydroxychloroquine Take 2 tabs by mouth once daily 5 days a week and 1 tab by mouth 2 days a week levothyroxine 50 mcg PO DAILY 90 days linaclotide (Linzess) 290 mcg PO QAM 30 days losartan 50 mg PO BID meclizine 25 mg PO DAILY PRN omeprazole 40 mg (2 x 20 mg) PO DAILY 30 days pantoprazole 40 mg PO DAILY phenazopyridine (Pyridium) 100 mg PO TID PRN Tobacco use date assessed: 11/19/22 Dental Screening Dental Screen Date: 11/19/22 Did you have a dental visit in the last 12 months?: Yes Did you have a dental problem in the last 6 months where you did not have access to dental care?: No Was dental information given to patient?: Patient has dentist HPI 2 week follow up HPI Details Patient is a 46-year-old male, this is a tele medicine video f/u [employer] her her lupus admit doses she is currently seeing a underwater welder and is taking hydroxychloroquine. However continued to her being all over her body especially at night. Patient verbalized to me that she sometimes can not even sleep because of discomfort you I started her on gabapentin 100 mg at night for pain management. Patient has started taking it and is feeling much better. She would like to continue 1 capsule of gabapentin at night, 90 capsules sent. We discussed titrating the does if 100 mg stopped working. 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 Mother No problems noted. 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 1. Little interest or pleasure in doing things: not at all 2. Feeling down, depressed, or hopeless: several days 3. Trouble falling or staying asleep, or sleeping too much: not at all 4. Feeling tired or having little energy: several days 5. Poor appetite or overeating: nearly every day 6. Feeling bad about yourself - or that you are a failure or have let yourself or your family down: not at all 7. Trouble concentrating on things, such as reading the newspaper or watching television: not at all 8. Moving or speaking so slowly that other people could have noticed. Or the opposite - being so fidgety or restless that you have been moving around a lot more than usual: several days 9. Thoughts that you would be better off or of hurting yourself in some way: not at all Total score: 6 Depression Screening Interpretation: Negative Depression Screening Done: Yes 41324 - PHQ-9 Billing: Yes Source: Developed by Drs. Gary Winters, Juany Larsen, John Paul Godoy and colleagues, with an educational matt from [email or web address]. Thrive Questionnaire Date Thrive assessed: 11/04/22 AUDIT C Alcohol Use Questionnaire (AUDIT-C) 1. How often do you have a drink containing alcohol?: Never 3. How often do you have six or more drinks on one occasion?: Never Total Score: 0 Score Reviewed/Action Taken: Yes SILVANA-7 AMB Questionnaire SILVANA-7 Date SILVANA - 7 assessed: 11/04/22 Source: Developed by Drs. Gary Winters, Juany Larsen, John Paul Godoy and colleagues, with an educational matt from [email or web address]. Review of Systems Const Denies chills and Denies fever(s) ENT Denies epistaxis and Denies nasal discharge Card Denies chest pain Resp Denies chest congestion, Denies cough and Denies hemoptysis GI Denies diarrhea and Denies nausea Skin/Breast Denies rash Neuro Reports no additional complaints Psych Reports no additional complaints Endo Reports no additional complaints Physical exam (Primary Care) Tobacco/Smoking Status: Tobacco use Status Tobacco use date assessed 11/19/22 11/19/22 08:17 Patient Tobacco Use Status Current someday Tobacco 11/19/22 08:17 Tobacco use type Cigarette 11/19/22 08:17 e-Cigarette/Vaping Use Currently Using 11/19/22 08:17 PHQ-9: PHQ-9 Score PHQ-9: Total score 6 11/19/22 08:19 Depression Screening Interpretation: Negative Thrive Assessment: Date of Thrive Assessment Date Thrive assessed 11/04/22 11/19/22 08:17 Telehealth Telehealth Location of provider rendering services: practice address Location of patient: address on file Patient Identification confirmed using: Name, : Yes Telehealth method: video Patient verbally consented to treatment: Yes Patient verbally consented to billing insurance company: Yes Patient informed of any privacy concerns related to visit: Yes Minutes spent on Phone/Video with Pt.: 13 Assessment and Plan Assessment & Plan (1) Chronic pain: Code(s): G89.29 - Other chronic pain Qualifiers: Chronic pain type: chronic pain syndrome Qualified Code(s): G89.4 - Chronic pain syndrome (2) SLE (systemic lupus erythematosus): Comment: dx in her teens (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, most recent kidney biopsy in 2001 with no active features of lupus nephritis with ongoing proteinuria, body aches, pericarditis with effusion that required pericardial window, abnormal nailfold capillaroscopy +++SSa) Code(s): M32.9 - Systemic lupus erythematosus, unspecified Qualifiers: Systemic lupus erythematosus type: other Systemic lupus erythematosus organ involvement: pericarditis Qualified Code(s): M32.12 - Pericarditis in systemic lupus erythematosus (3) Arthrosis: Code(s): M19.90 - Unspecified osteoarthritis, unspecified site Plan Patient is a 46-year-old male, this is a tele medicine video f/u [employer] her her lupus admit doses she is currently seeing a underwater welder and is taking hydroxychloroquine. However continued to her being all over her body especially at night. Patient verbalized to me that she sometimes can not even sleep because of discomfort you I started her on gabapentin 100 mg at night for pain management. Patient has started taking it and is feeling much better. She would like to continue 1 capsule of gabapentin at night, 90 capsules sent. We discussed titrating the does if 100 mg stopped working. Medications: Refilled gabapentin 100 mg PO BEDTIME 90 caps 0RF Coding Level of Care Code Tele Est Pt Level 3 (52798) Diagnoses Chronic pain syndrome G89.4 Chronic pain type: chronic pain syndrome Other systemic lupus erythematosus with pericarditis M32.12 Systemic lupus erythematosus type: other Systemic lupus erythematosus organ involvement: pericarditis Arthrosis M19.90
== END 2022-11-19 12:28 | disposition home or self-care (01) ==
LOC: HO.HMGC 08:03
PROVIDERS: PCP Internal Medicine; Visit Provider Internal Medicine
DX: G89.4 Chronic pain syndrome (principal); M32.12 Pericarditis in systemic lupus erythematosus; M19.90 Unspecified osteoarthritis, unspecified site
CPT/HCPCS: 99213

== ENCOUNTER 2022-12-16 07:03 | Outpatient (REF) | payer BC, SELFPAY ==
[2022-12-16 07:18] LABS: MANUAL DIFF FLAG NO
[2022-12-16 08:15] LABS: Basophils Percent Auto 0.4 % (0-2); Eosinophils Absolute Auto 0.1 X10*3/uL (0.0-0.4); Hematocrit 39.4 % (37.0-47.0); Hemoglobin 13.5 g/dl (12.0-16.0); Imm Gran Abs Auto 0.02 X10*3/uL (0.00-0.03); Imm Gran Pct Auto 0.3 % (0.0-0.4); Lymphocytes Absolute Auto 1.9 X10*3/uL (1.2-4.9); Lymphocytes Percent Auto 27.2 % (20-40); Mean Corpuscular HGB Conc 34.3 g/dl (31.0-35.0); Mean Corpuscular Hemoglobin 30.6 pg (27.0-33.0); Mean Corpuscular Volume 89.3 fL (80.0-98.0); Mean Platelet Volume 11.8 fL (9.4-12.3); Monocytes Absolute Auto 0.4 X10*3/uL (0.1-1.2); Monocytes Percent Auto 5.8 % (2-11); Neutrophils Absolute Auto 4.6 x10*3/uL (2.0-8.3); Neutrophils Percent Auto 65.3 % (45-73); Platelet Count 229 X10*3/uL (160-400); Red Blood Count 4.41 X10*6/uL (4.20-5.50); Red Cell Distribution Width 12.8 % (11.0-16.0)
[2022-12-16 08:22] LABS: Appearance Urine Clear; Color Urine Yellow; Glucose Urine UA Negative (Negative); Leukocyte Esterase Urine Negative (Negative); Nitrite Urine Negative (Negative); UMIC TRIGGER UA YES; Urine Blood Negative (Negative); Urine Ketones Negative (Negative); Urine Protein 30 (1+) mg/dL (Neg-Trace)
[2022-12-16 08:25] LABS: Bacteria Urine None Seen (None Seen); Hyaline Casts Urine 0-2 /LPF (0-2); RBC Urine 0-2 /HPF (0-2); Squamous Epithelial Cell Urine 0-2 /HPF (0-2)
[2022-12-16 08:49] LABS: Creatinine Urine 143.58 mg/dL; Protein/Creatinine Ratio, Ur 0.33 (<0.2); Total Protein Urine Random 47 mg/dL (<12)
[2022-12-16 08:52] LABS: Erythrocyte Sedimentation Rate 13 MM/HR (0-20); Troponin-I High Sensitivity 16.7 ng/L (<3.5-17.0)
[2022-12-16 08:57] LABS: Alanine Aminotransferase 11 U/L (0-31); Alkaline Phosphatase 58 U/L (39-117); Anion Gap 10 (12-20); Aspartate Amino Transferase 17 U/L (5-31); Bilirubin Total 0.5 mg/dL (0.0-1.0); Blood Urea Nitrogen 16 mg/dL (9-16); C Reactive Protein 0.18 mg/dL (< or = 0.50); Calcium 9.3 mg/dL (8.4-10.2); Carbon Dioxide 23 mmol/L (22-29); Chloride 108 mmol/L (96-108); Estimated Glomerular Filt Rate > 60; Glucose Random 85 mg/dL (60-115); Potassium 3.9 mmol/L (3.3-5.1); Sodium 137 mmol/L (135-145); Total Protein 7.4 g/dL (6.5-8.0)
[2022-12-17 21:14] LABS: Complement C3 145 mg/dL (83-193)
[2022-12-18 21:13] LABS: Anti DNA DS Antibody <1 IU/mL
== END 2022-12-16 07:04 | disposition home or self-care (01) ==
LOC: HO.LAB 07:03
PROVIDERS: PCP Internal Medicine; Visit Provider Student in an Organized Health Care Education/Training Program
DX: M32.9 Systemic lupus erythematosus, unspecified (principal)
CPT/HCPCS: 36415; 80053; 81001; 82570; 84156; 84484; 85025; 85652; 86140; 86160; 86225

== ENCOUNTER 2022-12-18 09:20 | Outpatient (AMB) | payer BC, SELFPAY ==
[2022-12-18 09:25] VITALS: BP 112/60; PULSE 87; TEMP 36.2; O2SAT 100; BMI 29.3
--- NOTE | 2022-12-18 09:25 | MHC.OFFVIS ---
Intake Vital Signs 12/18/22 09:25 Height 5 ft Weight 149 lb 14.629 oz BMI 29.3 BP 112/60 Blood Pressure Location Rt brachial Position Sitting Pulse 87 Pulse Source Pulse Oximeter Temp 97.2 F Temp Source Skin Pulse Oximetry (%) 100 Intake Visit Reasons: 3 mnts f/u for SLE Intake Note: Pt last seen 09/17/22, presents today for follow up and test results. On plaquenil, completed prednisone taper. Pain is about the same. She is taking gabapentin 200mg qhs prescribed by PCP. Barrel Burner Required: No Accompanied by: Self / Same As Patient Allergies aspirin Allergy (Unknown, Verified 12/18/22 09:30) vomiting, GI upset Medication List - Last Reconciled 12/18/22 by Richie Nobles MD cetirizine 10 mg PO DAILY colchicine (gout) 0.6 mg PO BID docusate sodium (Colace) 200 mg (2 x 100 mg) PO BEDTIME docusate sodium (Dulcolax Stool Softener (docusate)) 200 mg PO DAILY fluticasone propionate 50 mcg/actuation 2 sprays intranasal BID gabapentin 200 mg PO BEDTIME hydroxychloroquine Take 2 tabs by mouth once daily 5 days a week and 1 tab by mouth 2 days a week levothyroxine 50 mcg PO DAILY 90 days linaclotide (Linzess) 290 mcg PO QAM 30 days losartan 50 mg PO BID meclizine 25 mg PO DAILY PRN omeprazole 40 mg (2 x 20 mg) PO DAILY 30 days pantoprazole 40 mg PO DAILY phenazopyridine (Pyridium) 100 mg PO TID PRN HPI HPI Comments History of Present Illness Details 47-year-old female with SLE returns for follow-up. Compliant with hydroxychloroquine and colchicine. She states that she feels about the same. Continues to have diffuse pain, especially neck pain, chest pain and left wrist pain. She did not schedule physical therapy for her neck as she felt that it would not help. She was recently evaluated by her PCP and was started on gabapentin 100 mg nightly then increase to 200 mg nightly. She denies any fevers or rashes. Initial history: This is a 46-year-old female with past medical history of SLE who presents as a new patient for evaluation of SLE. Previously evaluated by Dr. Brennon red. Last seen by Dr. Mancilla in 2020. SLE history: Per patient diagnosed at age 10 with joint pain. She had a kidney biopsy in her teens which showed class 2 nephritis and treated with prednisone. Most recent kidney mass in 2001 showed no active lupus nephritis. Her SLE was treated with prednisone for the most part. She was on hydroxychloroquine for about 3 years [address] seen by Dr. Mancilla. Started having pericarditis in 2011, treated with colchicine then recurred in 2018 and was resumed on colchicine. Colchicine stopped in October 2018 and reoccurred in early 2019 and she was restarted on colchicine and indomethacin. Patient stated she has been getting more frequent pericarditis episode, most recent flare and January of 2022 and at that time the colchicine dose was increased to 2 tabs daily. When last seen by her voltage regulator assembler a week ago colchicine was reduced to 1 tab daily. Patient states she continues to have chest pain and occasional palpitations. Palpitations are worse when she is anxious. She has diffuse pain everywhere in her chest, arms, back, legs. She also has pain in her fingers. 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 She has started having recurrent rotator cuff tendinitis years ago and referred for physical therapy a few times without significant relief. She continues to have left shoulder pain. She denies any skin rashes. There is no history of DVT/PE. She mentions that recently her sister was diagnosed with myositis and rheumatoid arthritis. She states that when she was on hydroxychloroquine her overall symptoms were better. 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 Mother No problems noted. 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 Cognitive needs: No Hearing needs: No Vision needs: Yes Female Reproductive History Menstrual Age of Menarche: 10 Review of Systems ENT Reports neck pain Card Reports chest pain Musc Reports myalgias, Reports arthralgias and Reports neck pain Physical Exam Vital Signs: Last Vital Signs Temp 97.2 F 12/18/22 09:25 Pulse 87 12/18/22 09:25 BP 112/60 12/18/22 09:25 Pulse Ox 100 12/18/22 09:25 BMI result Body Mass Index 29.3 Const General: cooperative and comfortable Orientation/consciousness: patient oriented x3 Neck Other: Today she has normal neck range of motion without pain Chest Other: Chest wall tenderness Resp Effort & Inspection: normal respiratory effort and able to speak in complete sentences Auscultation: clear to auscultation bilaterally Cardio Rate: regular rate Rhythm: regular rhythm GI Inspection: No distended Palpation (GI): Soft to palpation and nontender Skin General skin exam: no rashes or lesions noted Neuro General: patient oriented x3 Extrem Other: No active synovitis today Negative Tinel sign bilaterally Assessment & Plan Assessment & Plan (1) SLE (systemic lupus erythematosus): Comment: dx in her teens (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, most recent kidney biopsy in 2001 with no active features of lupus nephritis with ongoing proteinuria, body aches, pericarditis with effusion that required pericardial window, abnormal nailfold capillaroscopy +++SSa) HCQ Code(s): M32.9 - Systemic lupus erythematosus, unspecified Qualifiers: Systemic lupus erythematosus type: other Systemic lupus erythematosus organ involvement: pericarditis Qualified Code(s): M32.12 - Pericarditis in systemic lupus erythematosus Plan: This is a 47-year-old female with a past medical history of SLE diagnosed in her teens (class 2 lupus nephritis based on biopsy in her teens, most recent kidney biopsy in 2001 with no active features of lupus nephritis with ongoing mild proteinuria, body aches, pericarditis) who presents for follow-up. Patient apparently was treated with prednisone and hydroxychloroquine for 2-3 years in the past. Patient is it colchicine 0.6 mg Twice daily and hydroxychloroquine 400 mg x 5 days and 200 mg x 2 days a week. Patient has chronic proteinuria that is unchanged. SLE activity markers are normal. Her SLE is well controlled. She has chest wall tenderness to palpation that is not likely related to pericarditis. Also has multiple myofascial tender points. Likely there is a component of fibromyalgia. With regards to her left wrist pain and numb fingers. She will speak to her PCP about an EMG/NCS study to evaluate for carpal tunnel syndrome Continue same medicines. Labs before next visit in 3 month (2) Long-term use of hydroxychloroquine: Code(s): Z79.899 - Other [facility] (current[facility] drug therapy Plan: Patient was evaluated this year by Ophthalmology and cleared to continue Plaquenil (3) Pericarditis associated with systemic lupus erythematosus: Code(s): I31.9 - Disease of pericardium, unspecified; M32.12 - Pericarditis in systemic lupus erythematosus Qualifiers: Chronicity: chronic Chronic pericarditis complication: unspecified complication status Qualified Code(s): M32.12 - Pericarditis in systemic lupus erythematosus Plan: Much better controlled since she was started on colchicine 0.6 Twice daily and hydroxychloroquine. Her troponin I is normal (4) Cervical radiculopathy: Code(s): M54.12 - Radiculopathy, cervical region Plan: Motion degraded cervical spine MRI shows multilevel degenerative changes. Patient is not interested in physical therapy. Also not interested in pain management evaluation. Plan I spent 29 minutes reviewing patient's chart, evaluating patient, ordering diagnostic workup, counseling patient and documenting in the chart Orders: Orders Complement C3 3 Months M32.9 - Systemic lupus erythematosus, unspecified Complement C4 3 Months M32.9 - Systemic lupus erythematosus, unspecified Troponin-I High Sensitivity 3 Months Z86.79 - Personal history of other diseases of the circulatory system Anti DNA DS Antibody 3 Months M32.9 - Systemic lupus erythematosus, unspecified Erythrocyte Sedimentation Rate 3 Months M32.9 - Systemic lupus erythematosus, unspecified Protein Creatinine Ratio, Ur 3 Months M32.9 - Systemic lupus erythematosus, unspecified UA w Microscopic 3 Months M32.9 - Systemic lupus erythematosus, unspecified Complete Blood Count Auto Diff 3 Months M32.9 - Systemic lupus erythematosus, unspecified Comprehensive Met. Panel 3 Months M32.9 - Systemic lupus erythematosus, unspecified Coding Level of Care Code Est Pt Level 4 (61592) Diagnoses Other systemic lupus erythematosus with pericarditis M32.12 Systemic lupus erythematosus type: other Systemic lupus erythematosus organ involvement: pericarditis Long-term use of hydroxychloroquine Z79.899 Chronic pericarditis associated with systemic lupus erythematosus (SLE), unspecified complication status M32.12 Chronicity: chronic Chronic pericarditis complication: unspecified complication status Cervical radiculopathy M54.12
== END 2022-12-18 09:57 | disposition home or self-care (01) ==
PROVIDERS: PCP Internal Medicine; Visit Provider Student in an Organized Health Care Education/Training Program
DX: M32.12 Pericarditis in systemic lupus erythematosus (principal); Z79.899 Other long term (current) drug therapy; M54.12 Radiculopathy, cervical region
CPT/HCPCS: 99214

== ENCOUNTER → 2022-12-18 09:20 | Outpatient (BNVA) | payer BC, SELFPAY | PROVIDERS: PCP Internal Medicine; Visit Provider Student in an Organized Health Care Education/Training Program ==

== ENCOUNTER 2023-01-12 13:59 | Outpatient (AMB) | payer BC, SELFPAY ==
--- NOTE | 2023-01-12 14:18 | A.OFFPC_ITS ---
Vital Signs 3 01/12/23 14:19 Height 5 ft Weight 151 lb 6 oz BMI 29.6 BP 132/80 Blood Pressure Location Rt brachial Position Sitting Pulse 88 Pulse Source Pulse Oximeter Pulse Oximetry (%) 98 Oxygen Delivery Method Room Air Intake Visit Reasons: Lab follow up/ Left wrist pain Allergies aspirin Allergy (Unknown, Verified 01/12/23 14:19) vomiting, GI upset Tobacco use date assessed: 01/12/23 Dental Screening Dental Screen Date: 01/12/23 Did you have a dental visit in the last 12 months?: Yes Did you have a dental problem in the last 6 months where you did not have access to dental care?: No Was dental information given to patient?: Patient has dentist HPI Lab follow up/ Left wrist pain 2 HPI0 Details Patient is a 47-year-old female who came in today to talk about Chronic neck pain radiating to left arm Patient had MRI of cervical spine done November 16 of this year that showed Limited study with motion artifacts. Mild multilevel cervical spondylosis and reversal of the normal cervical lordosis. Small disc protrusions at the C2-C3 and C5-C6 levels. [id number] foraminal narrowing at the C4-C5 level. She is also complaining of pain left wrist and numbness with tingling 4th 5th left finger On examination she is also tender over elbow with pressure around a lot of Patient admit to sitting with her elbow on the table most of the day while working on a computer Explained to her that she need to find a different posture because continuous pressure on the ulnar nerve is causing the symptoms now. She also have a pain left wrist were flexor tendons We have provided her with the wrist splint, patient is to wear that for few days and see if she improves. She is seeing hospitality ambassador and recently had x-rays of her knees done Which showed joint space narrowing bilateral knees with small effusion left knee She is requesting a handicap placard at it is difficult for patient to walk long distance. Paperwork filled [facility] Medical History Joint pain in fingers of right hand Myositis Hypothyroid SLE (systemic lupus erythematosus) Pericardial effusion UTI (urinary tract infection) Kidney stones Dysplasia of cervix, low grade ([place] 1) 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 Mother No problems noted. 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 1. Little interest or pleasure in doing things: several days 2. Feeling down, depressed, or hopeless: not at all 3. Trouble falling or staying asleep, or sleeping too much: more than half the days 4. Feeling tired or having little energy: more than half the days 5. Poor appetite or overeating: several days 6. Feeling bad about yourself - or that you are a failure or have let yourself or your family down: not at all 7. Trouble concentrating on things, such as reading the newspaper or watching television: not at all 8. Moving or speaking so slowly that other people could have noticed. Or the opposite - being so fidgety or restless that you have been moving around a lot more than usual: several days 9. Thoughts that you would be better off or of hurting yourself in some way: not at all Total score: 7 Depression Screening Interpretation: Negative Depression Screening Done: Yes 56674 - PHQ-9 Billing: Yes Source: Developed by Drs. Gary Winters, Juany Larsen, John Paul Godoy and colleagues, with an educational matt from [employer]. Thrive Questionnaire Date Thrive assessed: 01/12/23 I am a: Patient What is your living situation today?: I have a steady place to live Within the past 12 months, did the food you bought not last and you didn't have the money to get more?: Never true Within the past 12 months, did you worry whether your food would run out before you got money to buy more?: Never true Do you have trouble paying for medicines?: No Do you have trouble getting transportation to medical appointments?: No Do you have trouble paying your heating and electricity bill?: No Do you have trouble taking care of your child, family member or friend?: No Do you have trouble with day-to-day activities such as bathing, preparing meals, shopping, managing finances, etc.?: No Are you currently unemployed and looking for a job?: No Are you interested in more education?: No Please select the resources that you would like help with: None Currently or been in a relationship where the following occur: no concerns reported AUDIT C Alcohol Use Questionnaire (AUDIT-C) 1. How often do you have a drink containing alcohol?: Never 3. How often do you have six or more drinks on one occasion?: Never Total Score: 0 Score Reviewed/Action Taken: No SILVANA-7 AMB Questionnaire SILVANA-7 Date SILVANA - 7 assessed: 01/12/23 Feeling nervous, anxious, or on edge: 0 = Not at all Not being able to stop or control worryin = Several days Worrying too much about different things: 1 = Several days Trouble relaxin = Several days Being so restless that it is hard to sit still: 0 = Not at all Becoming easily annoyed or irritable: 0 = Not at all Feeling afraid as if something awful might happen: 0 = Not at all Total SILVANA-7 score (0-4 normal; 5-9 mild; 10-14 moderate; 15-21 severe): 3 Source: Developed by Drs. Gary Winters, Juany Laresn, John Paul Godoy and colleagues, with an educational matt from [employer]. SILVANA-7 Assessment Billing SILVANA-7 Assessment Tool: SILVANA-7 Assessment 88787 Review of Systems Const Denies chills and Denies fever(s) ENT Denies epistaxis and Denies nasal discharge Card Denies chest pain Resp Denies chest congestion, Denies cough and Denies hemoptysis GI Denies diarrhea and Denies nausea Skin/Breast Denies rash Neuro Reports no additional complaints Psych Reports no additional complaints Endo Reports no additional complaints Physical exam (Primary Care) Vital Signs: Last Vital Signs Pulse 88 01/12/23 14:19 BP 132/80 01/12/23 14:19 Pulse Ox 98 01/12/23 14:19 Oxygen Delivery Method Room Air 01/12/23 14:19 BMI result Body Mass Index 29.6 Tobacco/Smoking Status: Tobacco use Status Tobacco use date assessed 01/12/23 01/12/23 14:20 Patient Tobacco Use Status Current someday Tobacco 01/12/23 14:20 Tobacco use type Cigarette 01/12/23 14:20 e-Cigarette/Vaping Use Currently Using 01/12/23 14:20 PHQ-9: PHQ-9 Score PHQ-9: Total score 7 01/12/23 14:49 Depression Screening Interpretation: Negative Thrive Assessment: Date of Thrive Assessment Date Thrive assessed 01/12/23 01/12/23 14:49 Currently or been in a relationship where the following occur: no concerns reported Const General: cooperative, comfortable and no acute distress Orientation/consciousness: patient oriented x3 HENMT Head: Yes normocephalic Eyes General: appearance normal, both eyes and all related structures Neck Other: Limitation due to pain left upper extremity Resp Effort & Inspection: normal respiratory effort, no cough and no stridor Cardio Rhythm: regular rhythm Heart sounds: S1 normal heart sound present and S2 normal heart sound present Skin General skin exam: turgor normal Neuro General: patient oriented x3, tone normal and moves all extremities Extrem Elbow/forearm/wrist images: 2 1. Pain with pressure 2. Pain with active flexion Hand/finger images: 2 1. Numbness tingling Right lower extremity: no edema Left lower extremity: no edema Assessment and Plan Assessment & Plan (1) Radiculitis of left cervical region: Code(s): M54.12 - Radiculopathy, cervical region (2) Cervical spondylosis: Code(s): M47.812 - Spondylosis without myelopathy or radiculopathy, cervical region (3) Foraminal stenosis of cervical region: Code(s): M48.02 - Spinal stenosis, cervical region (4) Ulnar neuropathy of left upper extremity: Code(s): G56.22 - Lesion of ulnar nerve, left upper limb (5) Wrist pain, left: Code(s): M25.532 - Pain in left wrist (6) Bilateral primary osteoarthritis of knee: Code(s): M17.0 - Bilateral primary osteoarthritis of knee (7) Knee effusion, left: Code(s): M25.462 - Effusion, left knee (8) Fibromyalgia: Code(s): M79.7 - Fibromyalgia Plan Patient is a 47-year-old female who came in today to talk about Chronic neck pain radiating to left arm Patient had MRI of cervical spine done November 16 of this year that showed Limited study with motion artifacts. Mild multilevel cervical spondylosis and reversal of the normal cervical lordosis. Small disc protrusions at the C2-C3 and C5-C6 levels. [id number] foraminal narrowing at the C4-C5 level. She is also complaining of pain left wrist and numbness with tingling 4th 5th left finger On examination she is also tender over elbow with pressure around a lot of Patient admit to sitting with her elbow on the table most of the day while working on a computer Explained to her that she need to find a different posture because continuous pressure on the ulnar nerve is causing the symptoms now. She also have a pain left wrist were flexor tendons We have provided her with the wrist splint, patient is to wear that for few days and see if she improves. She is seeing hospitality ambassador and recently had x-rays of her knees done Which showed joint space narrowing bilateral knees with small effusion left knee She is requesting a handicap placard at it is difficult for patient to walk long distance. Paperwork filled Patient has been diagnosed with fibromyalgia through Rheumatology, taking gabapentin 200 mg through PCP office Patient says that she would like to go up to 300 mg as medication is helping her, but she would like to use the capsules she already have at home. She will get back to us if she do want to go up. Coding Level of Care Code Est Pt Level 4 (42872) Diagnoses Radiculitis of left cervical region M54.12 Cervical spondylosis M47.812 Foraminal stenosis of cervical region M48.02 Ulnar neuropathy of left upper extremity G56.22 Wrist pain, left M25.532 Bilateral primary osteoarthritis of knee M17.0 Knee effusion, left M25.462 Fibromyalgia M79.7 Additional Codes SILVANA-7 Assessment Billing - SILVANA-7 Assessment Tool: SILVANA-7 Assessment [id number] ([id number])
[2023-01-12 14:19] VITALS: BP 132/80; PULSE 88; O2SAT 98; BMI 29.6
== END 2023-01-12 15:15 | disposition home or self-care (01) ==
LOC: HO.HMGC 13:59
PROVIDERS: PCP Internal Medicine; Visit Provider Internal Medicine
DX: M54.12 Radiculopathy, cervical region (principal); M47.812 Spondylosis without myelopathy or radiculopathy, cervical region; M48.02 Spinal stenosis, cervical region; G56.22 Lesion of ulnar nerve, left upper limb; M25.532 Pain in left wrist; M17.0 Bilateral primary osteoarthritis of knee; M25.462 Effusion, left knee; M79.7 Fibromyalgia
CPT/HCPCS: 99214

== ENCOUNTER 2023-01-20 11:49 | Outpatient (AMB) | payer BC, SELFPAY ==
--- NOTE | 2023-01-20 11:57 | AM.OFFWIN_ITS ---
Intake Vital Signs 01/20/23 11:58 Height 5 ft Weight 68.946 kg BMI 29.7 BP 112/70 Blood Pressure Location Lt brachial Position Sitting Pulse 90 Pulse Source Pulse Oximeter Temp 97.5 F Temp Source Temporal Artery Scan Pulse Oximetry (%) 97 Oxygen Delivery Method Room Air Intake Visit Reasons: EP Neck/back pain Intake Note: pt is here today for neck/back pain started this morning Patient Tobacco Use Status: Current someday Tobacco user Allergies aspirin Allergy (Unknown, Verified 01/20/23 11:58) vomiting, GI upset Do you need a note to return to daycare/school/sports/work: No HPI HPI Comments History of Present Illness Details 1214 47-year-old female presents with sore neck/ stiffness, awoke this morning feeling this way, pain worse with movement better at rest. feels like a tight discomfort in her neck difficult to move her neck bilaterally. Think she may have slept wrong. Denies fevers, chills, headache, vision changes, dizziness, altered mental status, nausea, vomiting, abdominal pain, chest pain, shortness of breath, trauma. No upper extremity clumsiness physical exam with cervical paraspinous muscle spasms this is likely torticollis versus cervical paraspinous muscle spasms. Unlikely cord compression, cervical myelopathy, epidural abscess, cauda equina. Unlikely fracture dislocation no trauma. Plan Tylenol extra-strength, cyclobenzaprine, Lidoderm patch. Educated patient on diagnosis and treatment plan, answered all question, patient verbalizes understanding. At this time patient will be discharged home, advised to return with new or worsening symptoms. Educated on worrisome signs and symptoms and when to return. At this time I feel comfortable discharge home. 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 Mother No problems noted. 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 Cognitive needs: No Hearing needs: No Vision needs: Yes Female Reproductive History Menstrual Age of Menarche: 10 Review of Systems Const Details: Constitutional : No Weight loss, No Fever, No Chills, No Fatigue, No Malaise ENT/Mouth : No sore throat, No Rhinorrhea Eyes: No Eye Pain, No Swelling, No Redness Cardiovascular : No Chest Pain, No SOB, No Dyspnea on Exertion, No Orthopnea, No Edema, No Palpitations Respiratory : No Cough, No Sputum, No Wheezing Gastrointestinal : No Nausea, No Vomiting, No Diarrhea, No Constipation, No abdominal Pain, No Hematochezia, No Melena Genitourinary : No Dysuria, No Urinary Frequency, No Hematuria, Musculoskeletal : No joint pain, No Myalgias, No Joint Swelling, + neck pain Skin : No Skin Lesions, No rash Neuro : No Weakness, No Numbness, No Dizziness, No Headache Psych : No Anxiety/Panic, No Depression All other systems reviewed and are negative All systems reviewed & are unremarkable except as noted in HPI and below Physical Exam Vital Signs: Last Vital Signs Temp 97.5 F 01/20/23 11:58 Pulse 90 01/20/23 11:58 BP 112/70 01/20/23 11:58 Pulse Ox 97 01/20/23 11:58 Oxygen Delivery Method Room Air 01/20/23 11:58 BMI result Body Mass Index 29.7 vital signs stable Appearance: Alert.? Oriented X3.? No acute distress.? Head: Normocephalic, atraumatic, no step-offs or deformities Eyes: Pupils equal, round and reactive to light.? Neck: Normal inspection.?+ cervical paraspinous muscle spasms bilaterally. Into trapezius region. No midline tenderness. No meningeal signs CVS: Normal heart rate and rhythm.? Pulses normal.? Respiratory: No respiratory distress.? Breath sounds normal.? Abdomen: Soft and nontender.? Skin: Skin warm and dry.? Normal skin color.? Normal skin turgor.? Extremities: No lower extremity edema.? No calf ttp. 5/5 strength to bilateral upper and lower extremities Back: No midline tenderness, no C-spine tenderness, full range of motion, no CVA tenderness bilaterally Neuro: Oriented X 3.? No motor deficit.? No sensory deficit. CN 2-12 intact Assessment & Plan Assessment & Plan (1) Cervical paraspinal muscle spasm: Code(s): M62.838 - Other muscle spasm Plan Take your medications as prescribed. If you were prescribed antibiotics today, it is important that you take your medication to their entirety, do not skip any doses, do not finish them early. Follow-up with your primary care provider this week. Return to the emergency department with new or worsening symptoms. Such as fevers, chills, chest pain, shortness of breath, nausea, vomiting, dizziness, headache, vision changes, lethargy In case of emergency call 911 Medications: New acetaminophen (Tylenol Extra Strength) 500 mg PO Q6H PRN 30 tabs 0RF fever or pain cyclobenzaprine 10 mg PO BEDTIME PRN 14 tabs 0RF muscle spasm lidocaine 4% (AsperFlex (lidocaine)) 1 patch topical DAILY PRN 15 ea 0RF pain Coding Level of Care Code Est Pt Level 3 (86922) Diagnoses Cervical paraspinal muscle spasm M62.838
[2023-01-20 11:58] VITALS: BP 112/70; PULSE 90; TEMP 36.4; O2SAT 97; BMI 29.7
== END 2023-01-20 13:33 | disposition home or self-care (01) ==
PROVIDERS: PCP Internal Medicine; Visit Provider Physician Assistant
DX: M62.838 Other muscle spasm (principal)
CPT/HCPCS: 99213

== ENCOUNTER → 2023-03-19 12:58 | Outpatient (REF) | payer BC, SELFPAY ==
--- NOTE | 2023-03-19 13:00 | CA_ITS ---
Transthoracic Echocardiogram Patient (Last, First, Middle): Nery Joseph, Gender: Female Date of : 1975 Age: 47 Procedure Date: 03/19/2023 Procedure Type: Transthoracic Echocardiogram Location: OP Height: 152.4 cm Weight: 66.23 kg BSA: 1.63 m2 Heart Rate: bpm BP: 116 / 60 mmHg Auxiliary Engineer: Referring MD: Jose Morataya MD Stucco Laborer: Jose Morataya MD Symptoms: I42.9 - Cardiomyopathy, unspecified Study Quality: Good ECG Rhythm: Sinus Conclusions: - 1. Normal LV systolic function is normal with LVEF of 55-60% with impaired relaxation abnormality. 2. Normal cardiac valvular Dopplers 3. Normal RVSP 4. Small pericardial effusion Findings Left Ventricle Normal left ventricular size, thickness, and systolic function. The visually estimated ejection fraction is between 55-60%. Spectral Doppler is indicative of an impaired relaxation filling pattern. E/E prime ratio is between 8 and 15 consistent with indeterminate filling pressures. Right Ventricle Normal right ventricular cavity size and systolic function. Atria Both atria are normal in size. There is no evidence of interatrial shunt. Aortic Valve Normal aortic valve structure and function. There is no aortic valve stenosis. There is no aortic valve regurgitation. Mitral Valve Normal mitral valve structure and function. There is trace mitral valve regurgitation. There is no mitral valve stenosis. Pulmonic Valve The pulmonic valve is likely normal. Tricuspid Valve Normal tricuspid valve structure. There is mild tricuspid valve regurgitation. The right ventricular systolic pressure is normal. The right ventricular systolic pressure is 22 mmHg. Normal right atrial pressure. There is no evidence of pulmonary hypertension. Great Vessels All visible segments of the aorta are normal in size. The pulmonary artery was not well visualized. There is no dilatation of the ascending aorta measuring 3.00 cm. Venous The inferior vena cava is normal in size and collapses greater than 50% with inspiration. Pericardium/Pleural There is a small loculated pericardial effusion overlying the left ventricle. Prior Study Comparison No significant change compared to prior study dated: 08/04/2021. Measurements 2D Linear Measurements IVSd: 1.04 0.6-0.9/0.6-1.0 cm LVIDd: 4.26 3.9-5.3/4.2-5.9 cm LVIDd Index: 2.61 2.4-3.2/2.2-3.1 cm/m2 LVIDs: 2.71 2.0-3.6 cm LVPWd: 1.14 0.7-1.1 cm Ao Root: 2.90 2.1-3.5 cm LA Diam: 3.10 2.7-3.8/3.0-4.0 cm LAIDs Index: 1.90 1.5-2.3 cm/m2 LV Mass: 197.37 67-162/88-224 g LV Mass Index: 121.09 43-95/49-115 g/m2 LVOT Diam: 1.90 3.0+(-)1.3 cm 2D Systolic Function EF 4C: 56.50 >55% EF 2C: 55.00 >55% EF BiP: 56.80 >55% Mitral Valve MV Pk E: 0.80 MV PK A: 1.05 MV Decel Time: 182.00 E/A: 0.80 E'Lateral: 9.79 E'Medial: 4.46 E/E' Med: 18.00 E/E' Lat: 8.20 PHT: 53.00 MVA PHT: 4.15 Decel [place]: 4.40 Aortic Valve AoV Pk Raffi: 1.32 AoV Mn Raffi: 0.86 AoV VTI: 0.28 AoV Pk Grad: 7.00 Aov Mn Grad: 4.00 MANOLO Cont.VTI: 2.02 LVOT LVOT Pk Raffi: 0.95 LVOT Mn Raffi: 0.65 LVOT VTI: 0.20 LVOT Pk Grad: 4.00 LVOT Mn Grad: 2.00 LVOT Diam: 1.90 LVOT Area: 2.84 Diastolic Function MV Pk E: 0.80 MV Pk A: 1.05 E/A: 0.80 E'Medial: 4.46 E/E' Med: 18.00 E' Laterial: 9.79 E/E' Lat: 8.20 Right Ventricle TAPSE (mm): 16.00 TVS' Raffi: 11.00 Tricuspid Valve TR Pk Raffi: 2.17 TR Pk Grad: 19.00 RA Press: 3.00 RVSP: 22.00 Great Vessels Aorta Ao Root-2D: 2.90 2.0-3.7 cm Ao Asc: 3.00 2.1-3.4 cm Pulmonary Valve PV Pk Raffi: 0.93 Peak PV Grad: 3.00 Updated in Other Vendor System with Status of Final Jose Morataya MD electronically signed on 03/20/2023 12:12:54 PM with status of Final
== END ==
LOC: HO.CARD 12:58
PROVIDERS: PCP Internal Medicine; Visit Provider Internal Medicine Cardiovascular Disease
DX: I42.9 Cardiomyopathy, unspecified (principal)
CPT/HCPCS: 93306

== ENCOUNTER → 2023-03-19 13:00 | Outpatient (BNV) | payer BC, SELFPAY | PROVIDERS: PCP Internal Medicine; Visit Provider Internal Medicine Cardiovascular Disease | DX: I36.1 Nonrheumatic tricuspid (valve) insufficiency (principal) | CPT/HCPCS: 93306 ==

== ENCOUNTER 2023-04-06 09:30 | Outpatient (REF) | payer BC, SELFPAY ==
--- NOTE | ~2023-04-06 | CT_ITS ---
EXAMINATION: CT ABDOMEN WITHOUT AND WITH CONTRAST CLINICAL INFORMATION: Renal cyst. COMPARISON: Renal ultrasound 10/05/2022 CT abdomen/pelvis 03/13/2022 TECHNIQUE: Contiguous axial thin section helical images of the abdomen were performed before and after the administration of 85 mL of Omnipaque 350 intravenous contrast. The data set was reformatted in the coronal and sagittal planes and reviewed on an independent workstation. This CT examination was performed using dose optimization techniques as appropriate, variously including the following: *Automated exposure control *Adjustment of mA and/or kV according to patient size (this includes techniques or standardized protocols for targeted exams where dose is matched to indication/reason for exam; i.e. extremities or head) *Use of iterative reconstruction technique DLP: 392 mGy-cm FINDINGS: LUNG BASES: Pericardial effusion. LIVER, GALLBLADDER, AND BILIARY TREE: The liver is normal in size and contour. No focal hepatic lesion. No biliary ductal dilatation. The gallbladder is unremarkable. PANCREAS: No ductal dilatation. SPLEEN: Not enlarged. ADRENAL GLANDS AND KIDNEYS: No adrenal mass. There is hyperdensity of the renal cortices. 5 mm nonobstructing calculus lower pole left kidney. Upper pole left renal cyst has decreased in size with overlying cortical thinning measuring 3.1 x 1.6 cm transaxially. On the delayed images there is layering contrast suggesting possible calyceal diverticulum. Left lower pole cyst measures 3.3 x 3.3 cm transaxially. No hydronephrosis or perinephric fluid collection. Delayed images demonstrate intact renal function. BOWEL LOOPS: Imaged loops of small and large bowel are not obstructed. Small hiatal hernia. LYMPH NODES: No bulky lymphadenopathy. VASCULAR: Normal caliber abdominal aorta. BONES: No destructive bone lesions. CT/CT abdomen wo/w IV con IMPRESSION: Left renal cysts and/or calyceal diverticulum appear benign. No further routine follow-up is needed. 5 mm nonobstructing left renal calculus. No hydronephrosis. Pericardial effusion.
[2023-04-06] MEDS: iohexoL 350 MG/ML 100 ML INFUS..BTL IV (10:30)
== END 2023-04-06 09:31 | disposition home or self-care (01) ==
LOC: HO.CT 09:30
PROVIDERS: PCP Internal Medicine; Visit Provider Urology
DX: N28.1 Cyst of kidney, acquired (principal)
CPT/HCPCS: 74170; Q9967

== ENCOUNTER 2023-04-23 10:34 | Outpatient (AMB) | payer BC, SELFPAY ==
--- NOTE | 2023-04-23 10:49 | MHC.OFFVIS ---
Intake Intake Visit Reasons: 6m/CT(set) Intake Note: Patient presents for follow up for CT Scan and kidney stones Urology Medications: None Antibiotic Allergy: None Blood Thinner: None Heating And Air Conditioning Mechanic Required: No Accompanied by: Self / Same As Patient Allergies aspirin Allergy (Unknown, Verified 04/23/23 20:53) vomiting, GI upset Medication List - Last Reconciled 04/23/23 by KATELYNN Cantu-ROSANGELA acetaminophen (Tylenol Extra Strength) 500 mg PO Q6H PRN cetirizine 10 mg PO DAILY colchicine 0.6 mg PO BID docusate sodium (Colace) 200 mg (2 x 100 mg) PO BEDTIME fluticasone propionate 50 mcg/actuation 2 sprays intranasal BID gabapentin 200 mg PO BEDTIME levothyroxine 50 mcg PO DAILY 90 days linaclotide (Linzess) 290 mcg PO QAM 30 days losartan 50 mg PO BID meclizine 25 mg PO DAILY PRN omeprazole 40 mg (2 x 20 mg) PO DAILY 30 days pyridoxine (vitamin B6) 100 mg PO DAILY 90 days HPI HPI Comments History of Present Illness Details Nery is a very pleasant 47-year-old female patient of Dr. Alejandra. She has a past medical history of myositis, hypothyroidism, systemic lupus erythmatosus, urinary tract infection, nephrolithiasis, lupus nephritis, pericarditis associated with systemic lupus, and hypertension. She presents to the office today for a follow up of her nephrolithiasis and complex renal cysts. Recent renal imaging results reviewed with the patient today. 5 mm nonobstructing calculus lower pole left kidney. Upper pole left renal cyst has decreased in size with overlying cortical thinning measuring 3.1 x 1.6 cm transaxially. On the delayed images there is layering contrast suggesting possible calyceal diverticulum. Left lower pole cyst measures 3.3 x 3.3 cm transaxially. No hydronephrosis or perinephric fluid collection. Delayed images demonstrate intact renal function. Left renal cysts and/or calyceal diverticulum appear benign. No further routine follow-up is needed per radiology report. In discussion with the patient today she reports to be doing feeling well. Patient previously underwent right-sided ESWL with Dr. Sutton on 09/06. Discussed further treatment options for 5 mm left lower pole calculus. Discussed surveillance monitoring versus surgical intervention. Discussed risks and benefits of these interventions at length. When asked she currently denies any bothersome urinary issues or concerns. She denies urinary urgency, urinary frequency, incontinence, nocturia, hematuria, dysuria, foul smelling urine, changes to urinary stream, flank pain, fever, and or chills. She is happy with her current voiding parameters. When asked she reports compliance with vitamin B6 daily and continues to drink plenty of water daily. In office urinalysis results reviewed with the patient today. 3+ protein however patient reports to be following up with Nephrology as well as rheumatology. She otherwise offers no other issues or concerns at this time. Nephrolithiasis Recurrent nephrolithiasis 08/05 presented to emergency department with right-sided flank pain Imaging - 07/05 CT scan left 2.4 cm renal cysts, 6 mm distal right ureteric stone with mild hydroureteronephrosis, 6 mm right renal stone - 09/04 renal ultrasound 6 mm stone in renal pelvis - 09/06 renal ultrasound no stone right, left side complex renal cyst -04/10 CT Urogram no stone on the right, left side complex renal cysts with 5 mm stone left lower pole. 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 Mother No problems noted. 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 Cognitive needs: No Hearing needs: No Vision needs: Yes Female Reproductive History Menstrual Age of Menarche: 10 Review of Systems Const Reports as per HPI Eyes Reports no additional complaints ENT Reports no additional complaints Card Reports no additional complaints Resp Reports no additional complaints GI Reports no additional complaints Reports as per HPI Musc Reports no additional complaints Neuro Reports no additional complaints Psych Reports no additional complaints Endo Reports no additional complaints Physical Exam Const General: cooperative, healthy appearing, comfortable, no acute distress, well developed, alert and awake Orientation/consciousness: patient oriented x3 Limitations: no limitations HEENT Head: Yes normal to inspection, Yes normocephalic and Yes atraumatic Ears: hearing grossly normal bilaterally Eyes General: appearance normal, both eyes and all related structures Neck Neck: Yes normal visual inspection and Yes trachea midline Chest Chest palpation & inspection: normal inspection of the chest Resp Effort & Inspection: normal respiratory effort and able to speak in complete sentences Cardio Rate: regular rate GI Inspection: Yes normal to inspection General: Yes no CVA tenderness Back/Spine/Pelvis Back: no CVA tenderness Skin General skin exam: no rashes or lesions noted Neuro General: patient oriented x3 Extrem General: Yes normal to inspection Psych Appearance: grossly normal and well kempt Mental Status: mental status grossly normal Speech and movement: Normal speech and movement present and Clear speech present Affect: normal affect Attitude: cooperative Thought process: Normal thought process present Thought content: Normal thought content present Insight: Fair insight present (Psych) Judgement: Fair judgement present (Psych) Results AMB Urinalysis, Automated UA Leukoctes 0 Deshaun/uL Last Edit by Vanna's Vanity on 04/23/23 11:04 UA Nitrite Negative Last Edit by Vanna's Vanity on 04/23/23 11:04 UA Urobilinogen 0.2 mg/dL Last Edit by Vanna's Vanity on 04/23/23 11:04 UA Protein 300 mg/dL Last Edit by Vanna's Vanity on 04/23/23 11:04 UA pH 6.0 Last Edit by Vanna[employer] Vanity on 04/23/23 11:04 UA Blood 10 Partha/uL Last Edit by Vanna's Vanity on 04/23/23 11:04 UA Specific [place] 1.030 Last Edit by Eddi Rodriguez on 04/23/23 11:04 UA Ketone Negative Last Edit by Eddi Rodriguez on 04/23/23 11:04 UA Bilirubin 0 mg/dL Last Edit by Eddi Rodriguez on 04/23/23 11:04 UA Glucose 0 mg/dL Last Edit by Eddi Rodriguez on 04/23/23 11:04 Results Reviewed Results Reviewed: Laboratory Last Values Urine pH (Auto) 6.0 04/23/23 10:54 Specific [place] (Auto) 1.030 04/23/23 10:54 Urine Protein (Auto) 300 mg/dL 04/23/23 10:54 Glucose (UA)(Auto) 0 mg/dL 04/23/23 10:54 Urine Ketones (Auto) Negative 04/23/23 10:54 Urine Blood (Auto) 10 Partha/uL 04/23/23 10:54 Urine Nitrite (Auto) Negative 04/23/23 10:54 Urine Bilirubin (Auto) 0 mg/dL 04/23/23 10:54 Urine Urobilinogen (Auto) 0.2 mg/dL 04/23/23 10:54 Leukocyte Esterase (Auto) 0 Deshaun/uL 04/23/23 10:54 Date of Service: 04/06/23 EXAMINATION: CT ABDOMEN WITHOUT AND WITH CONTRAST FINDINGS: LUNG BASES: Pericardial effusion. LIVER, GALLBLADDER, AND BILIARY TREE: The liver is normal in size and contour. No focal hepatic lesion. No biliary ductal dilatation. The gallbladder is unremarkable. PANCREAS: No ductal dilatation. SPLEEN: Not enlarged. ADRENAL GLANDS AND KIDNEYS: No adrenal mass. There is hyperdensity of the renal cortices. 5 mm nonobstructing calculus lower pole left kidney. Upper pole left renal cyst has decreased in size with overlying cortical thinning measuring 3.1 x 1.6 cm transaxially. On the delayed images there is layering contrast suggesting possible calyceal diverticulum. Left lower pole cyst measures 3.3 x 3.3 cm transaxially. No hydronephrosis or perinephric fluid collection. Delayed images demonstrate intact renal function. BOWEL LOOPS: Imaged loops of small and large bowel are not obstructed. Small hiatal hernia. LYMPH NODES: No bulky lymphadenopathy. VASCULAR: Normal caliber abdominal aorta. BONES: No destructive bone lesions. CT/CT abdomen wo/w IV con IMPRESSION: Left renal cysts and/or calyceal diverticulum appear benign. No further routine follow-up is needed. 5 mm nonobstructing left renal calculus. No hydronephrosis. Pericardial effusion. Assessment & Plan Assessment & Plan (1) Renal calculi: Code(s): N20.0 - Calculus of kidney (2) Renal cyst: Code(s): N28.1 - Cyst of kidney, acquired Plan In office urinalysis results reviewed with the patient today; as noted above. Recent CT results reviewed with the patient today; as noted above. Discussed at length further interventions for nephrolithiasis with surveillance monitoring versus surgical intervention; risks and benefits of these interventions were discussed at length. Will continue with surveillance monitoring of renal cysts She currently denies any bothersome urinary issues. She is happy with her current voiding parameters. Continue vitamin B6 as discussed and prescribed; refill provided. Continue drinking plenty of water daily. Continue adding 1 oz of lemon juice to water daily. Will obtain renal ultrasound in 3 months. Follow-up in 3 months with imaging to be completed prior; or sooner with any issues, concerns, and or questions. Orders: Orders AMB Urinalysis Automated 04/23/23 Z13.9 - Encounter for screening, unspecified US renal BI 3 Months N20.0 - Calculus of kidney Medications: New pyridoxine (vitamin B6) 100 mg PO DAILY 90 days 90 tabs 1RF Patient Instructions: The patient had an opportunity to ask questions regarding the treatment plan. All questions were answered. Physical exam, labs, and imaging were discussed and reviewed in detail. As well as risks, benefits, and discussion of treatment choices. No major barriers to understanding were identified. The patient expressed understanding and agreement with the above treatment plan. The patient was made aware they should contact our office by phone for worsening of their current condition, the appearance of new symptoms, or with any questions or concerns. Compliance is encouraged with any medications and follow up testing that is ordered. It is a privilege to be allowed the opportunity to participate in? your urological care.? Again, if you have any questions or concerns If you have any questions or concerns please do not hesitate to contact me. The office is [phone]. This note is constructed using voice recognition software. While every effort has been made to ensure accuracy sales development manager errors may have been included. Yours sincerely, KATELYNN Cantu-ROSANGELA Coding Level of Care Code Est Pt Level 3 (50058) Diagnoses Renal calculi N20.0 Renal cyst N28.1
== END 2023-04-23 11:45 | disposition home or self-care (01) ==
PROVIDERS: PCP Internal Medicine; Visit Provider Nurse Practitioner Family
DX: N20.0 Calculus of kidney (principal); N28.1 Cyst of kidney, acquired
CPT/HCPCS: 99213

== ENCOUNTER → 2023-04-23 10:34 | Outpatient (BNVA) | payer BC, SELFPAY | PROVIDERS: PCP Internal Medicine; Visit Provider Nurse Practitioner Family | DX: N20.0 Calculus of kidney (principal); N28.1 Cyst of kidney, acquired | CPT/HCPCS: 81003 ==

== ENCOUNTER 2023-05-17 05:40 | Emergency (ER) | payer BC, SELFPAY ==
[2023-05-17 05:49] VITALS: BP 158/87; PULSE 98; RESP 20; TEMP 36.6; O2SAT 99; BMI 29.1
[2023-05-17 06:04] LABS: Hematocrit 40.9 % (37.0-47.0); Hemoglobin 14.2 g/dl (12.0-16.0); Mean Corpuscular HGB Conc 34.7 g/dl (31.0-35.0); Mean Corpuscular Hemoglobin 30.4 pg (27.0-33.0); Mean Corpuscular Volume 87.6 fL (80.0-98.0); Mean Platelet Volume 10.9 fL (9.4-12.3); Platelet Count 207 X10*3/uL (160-400); Red Blood Count 4.67 X10*6/uL (4.20-5.50); Red Cell Distribution Width 13.4 % (11.0-16.0); White Blood Count 9.6 X10*3/uL (4.8-10.8)
[2023-05-17 06:15] LABS: Alanine Aminotransferase 12 U/L (0-31); Alkaline Phosphatase 71 U/L (39-117); Anion Gap 10 (12-20); Aspartate Amino Transferase 18 U/L (5-31); Bilirubin Total 0.4 mg/dL (0.0-1.0); Blood Urea Nitrogen 17 mg/dL (9-16); Calcium 9.2 mg/dL (8.4-10.2); Carbon Dioxide 24 mmol/L (22-29); Chloride 111 mmol/L (96-108); Creatinine Clr Calc Pharmacy 65.5; Estimated Glomerular Filt Rate > 60; Glucose Random 113 mg/dL (60-115); Lipase 22 U/L (8-78); Potassium 3.8 mmol/L (3.3-5.1); Sodium 141 mmol/L (135-145); Total Protein 7.7 g/dL (6.5-8.0)
[2023-05-17] MEDS: diphenhydrAMINE HCL 50 MG/ML VIAL 25 MG IVPUSH (06:21)
[2023-05-17] MEDS: Metoclopramide HCl 10 MG/2 ML VIAL IVPUSH (06:25)
[2023-05-17] MEDS: 0.9 % Sodium Chloride 1,000 ML 999 ML IV (06:25)
--- NOTE | 2023-05-17 06:37 | PC.NURSE ---
Patient presenting to ED for evaluation of abdominal pain, nausea, vomiting since 11pm yesterday. Patient reports she has been unable to hold fluids/food down. Patient rating epigastic abdominal pain as 5/10 at present. Patient is afebrile, VSS. 20 G IV line placed to L AC, labs drawn and sent to lab, patient medicated per APR. 1 L NS infusing w/o issues. Call valdez placed within patient's reach.
--- NOTE | 2023-05-17 06:50 | ED_ITS ---
HPI - Abdominal Pain General Chief Complaint: Abdominal Pain Stated Complaint: vomiting Time Seen by Provider: 05/17/23 06:37 Source: patient Mode of arrival: ambulatory Limitations: no limitations History of Present Illness HPI narrative: 47 year old female with pmhx significant for fibromyalgia, SLE, hypothyroid, HTN, cardiomyopathy, pericarditis presents to the ED today with acute onset nausea and vomiting that began around 2330 last night. States symptoms began after eating at a restaurant last night with her partner. Admits to consuming steak. Her partner did not eat the same meal and is currently asymptomatic. She admits that she began having some epigastric abdominal pain after she had been vomiting for a while which has now completely resolved. She denies fever, chills, sore throat, cough, sputum production, chest pain, SOB, palpitations, diarrhea, constipation, dysuria, hematuria. Denies recent travel.Denies known sick contacts. Admits to hx of chronic constipation which she follows with GI for. Her last BM was yesterday. Related Data Home Medications Medication Instructions Recorded Confirmed losartan 50 mg tablet 50 mg PO BID 12/13/19 11/19/22 fluticasone propionate 50 2 spray intranasal BID 06/17/20 11/19/22 mcg/actuation nasal spray,suspension cetirizine 10 mg tablet 10 mg PO DAILY 08/12/21 11/19/22 Previous Rx's Medication Instructions Recorded docusate sodium 100 mg capsule 200 mg (2 x 100 mg) PO BEDTIME #60 10/26/22 (Colace) caps linaclotide 290 mcg capsule 290 mcg PO QAM 30 days #30 caps 10/26/22 (Linzess) omeprazole 20 mg capsule,delayed 40 mg (2 x 20 mg) PO DAILY 30 days 10/26/22 release #60 caps acetaminophen 500 mg tablet 500 mg PO Q6H PRN fever or pain 01/20/23 (Tylenol Extra Strength) #30 tabs colchicine 0.6 mg tablet 0.6 mg PO BID #180 tabs 02/10/23 pyridoxine (vitamin B6) 100 mg 100 mg PO DAILY 90 days #90 tabs 04/23/23 tablet levothyroxine 50 mcg tablet 50 mcg PO DAILY 90 days #90 tabs 04/29/23 gabapentin 300 mg capsule 300 mg PO BID 30 days #60 caps 04/30/23 meclizine 25 mg tablet 25 mg PO DAILY PRN Insomnia 30 04/30/23 days #30 tabs ondansetron 4 mg disintegrating 4 mg PO DAILY PRN nausea and 05/17/23 tablet vomiting 5 days #10 tabs Allergies Allergy/AdvReac Type Severity Reaction Status Date / Time aspirin Allergy Unknown vomiting, Verified 05/17/23 05:48 GI upset Review of Systems Review of Systems Constitutional: No fever, chills, fatigue, night sweats, weight changes ENT/Mouth: No ear pain, hearing loss, nasal congestion, sinus pain, rhinorrhea, sore throat Eyes: No eye pain, swelling, redness, vision changes, discharge Cardio: No chest pain, palpitations, BAHE[place], orthopnea, peripheral edema Pulm: No SOB, cough, sputum, wheezing, dyspnea, hemoptysis GI: No hematemesis, abdominal pain, diarrhea, constipation, hematochezia, melena, +nausea, +vomiting : No irregular bleeding, dysuria, frequency, urgency, hesitancy, hematuria, flank pain, urinary flow changes, urinary incontinence or retention MSK: No back pain, neck pain, joint pain, myalgias Skin: No lesions, rashes Neuro: No weakness, numbness, paresthesias, LOC, dizziness, headache Psych: No anxiety/panic, depression, SI/HI, AH/VH All other systems reviewed and are negative. [facility] Past Medical History Attestation statement: The following information was validated with the patient. 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 Mother No problems noted. Social History Social History Household Members: Significant Other and Children Housing: House Are you a primary personal care home administrator to a significant other at home: No Do you presently have visiting nurse or other home services: No Alcohol intake: never Patient Tobacco Use Status: Current someday Tobacco user Tobacco use type: Cigarette Cigarette Packs Per Day: 0 Smoked in Last 30 Days: No e-Cigarette/Vaping Use: Currently Using Use of substances other than those prescribed or required for medical reasons: Yes Substance Use Type: Marijuana Substance Use Frequency: Daily Last Used Substance: Hours (ago) Any prior treatment program specific to substance use: No Advance Directives: No Advance Directives Information Provided: Yes Patient : No service: No Current occupational status: employed 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 Const General: cooperative, healthy appearing, comfortable and no acute distress Orientation/consciousness: patient oriented x3 Limitations: no limitations HENMT Head: Yes normal to inspection, Yes No palpable skull fracture present, Yes normocephalic and Yes atraumatic Eyes General: appearance normal, both eyes and all related structures Conjunctivae: conjunctivae normal Sclerae: sclerae normal Pupils: Equal, round and reactive pupils present EOM: No Nystagmus present Neck Neck: Yes normal visual inspection, Yes full ROM, Yes no lymphadenopathy and Yes no JVD Thyroid: Thyroid normal Chest Chest palpation & inspection: normal inspection of the chest and normal palpation of entire chest wall Resp Effort & Inspection: normal respiratory effort and able to speak in complete sentences Auscultation: clear to auscultation bilaterally Cardio Rate: regular rate Rhythm: regular rhythm GI Other: + abdomen soft, nondistended, nontender to palpation, no rebound tenderness or guarding. Normoactive bowel sounds x4. No Galo's sign. No Rovsing sign or McBurney point tenderness. Inspection: Yes normal to inspection General: Yes no CVA tenderness Back/Spine/Pelvis Back: no CVA tenderness Skin General skin exam: no rashes or lesions noted Neuro General: patient oriented x3 and gait normal Cranial nerves: Yes Equal, round and reactive pupils present and No Nystagmus present Course Course Course Narrative: 1002-- CBC without leukocytosis or left shift. No anemia. H&H stable. Chemistry without acute electrolyte abnormality requiring intervention. BUN slightly elevated to 17 however creatinine WNL at 0.8 > patient receiving IV fluids. Normal liver enzymes. Lipase WNL > pancreatitis unlikely. TSH elevated to 12.41 > patient with hx of hypothyroidism on 0.5 levothyroxine once daily. She states that she is compliant with this medication prescribed by her PCP. She last saw her PCP 5 months ago and has a follow up appointment this month. When compared to priors, last TSH obtain in oct 2022 1.38. The highest TSH previously measured at 7.09 on 10/13/21. Given symptoms of N/V, I'm not concerned about thyroid complication such as myxedema coma at this time. I informed her of TSH results and advised her she needs to follow up with PCP regarding this as her medications may need adjusting. > patient received Reglan and Benadryl on arrival and states that this has improved her symptoms. She has not had any further episodes of vomiting after receiving these medications in ED. she is tolerating crackers and water. Discussed all results with patient. Patient likely has a gastroenteritis. Will discharge home with zofran and return precautions. Medical Decision Making Medical Decision Making [facility] Narrative: 47 year old female with pmhx significant for fibromyalgia, SLE, hypothyroid, HTN, cardiomyopathy, pericarditis presents to the ED today with acute onset nausea and vomiting that began around 2330 last night. Patient hypertensive to 158/87. Vitals otherwise WNL. Afebrile. She is nontoxic-appearing and in no acute distress. She is lying comfortably on the exam bed. There is an emesis bag on the bed with yellow colored vomit. Thyroid WNL. No palpable nodules. Mucous membranes moist. Skin warm dry and intact. Abdomen is soft, nondistended, nontender to palpation, no rebound tenderness or guarding. Normoactive bowel sounds x4. No Galo's sign. No Rovsing sign or McBurney point tenderness. No CVAT bilaterally. Differential diagnosis includes gastroenteritis, gastritis, viral syndrome, hypothyroidism. Low suspicion for cholelithiasis, cholecystitis, appendicitis, acute abdomen, SBO, ischemic bowel. Plan for labs, viral serology, UA, re-evaluation. Differential Diagnosis Differential Diagnoses: The differential diagnosis associated with the presentation includes as above. Admission/Observation Consideration of admission/observation: Escalation of care including admission/observation considered In this 47-year-old female presenting with acute onset nausea/vomiting, admission was considered. Lab Data MDM Lab Attestation statement: I reviewed the patient's lab results. As above 05/17/23 05:57 05/17/23 05:57 Labs: Lab Results 05/17/23 05/17/23 05/17/23 Range/Units 05:57 07:31 09:42 WBC 9.6 (4.8-10.8) X10*3/uL RBC 4.67 (4.20-5.50) X10*6/uL Hgb 14.2 (12.0-16.0) g/dl Hct 40.9 (37.0-47.0) % MCV 87.6 (80.0-98.0) fL MCH 30.4 (27.0-33.0) pg MCHC 34.7 (31.0-35.0) g/dl RDW 13.4 (11.0-16.0) % Plt Count 207 (160-400) X10*3/uL MPV 10.9 (9.4-12.3) fL Absolute Nucleated RBC 0.000 (0.0-0.012) X10*3/uL Nucleated RBC % (auto) 0.0 (0.0-0.2) /100WBC Sodium 141 (135-145) mmol/L Potassium 3.8 (3.3-5.1) mmol/L Chloride 111 H (96-108) mmol/L Carbon Dioxide 24 (22-29) mmol/L Anion Gap 10 L (12-20) BUN 17 H (9-16) mg/dL Creatinine 0.89 (0.5-1.4) mg/dL Estim Creat Clear Calc 65.5 Estimated GFR > 60 Random Glucose 113 (60-115) mg/dL Calcium 9.2 (8.4-10.2) mg/dL Magnesium 1.7 (1.6-2.6) mg/dL Total Bilirubin 0.4 (0.0-1.0) mg/dL AST 18 (5-31) U/L ALT 12 (0-31) U/L Alkaline Phosphatase 71 (39-117) U/L Total Protein 7.7 (6.5-8.0) g/dL Albumin 4.0 (3.5-5.0) g/dL Lipase 22 (8-78) U/L TSH 12.41 H (0.32-4.0) uIU/mL Free T4 0.69 L (0.71-1.85) ng/dL Urine Color Yellow Urine Appearance Clear Urine pH 5.5 (5.0-9.0) Ur Specific [place] 1.015 (1.005-1.025) Urine Protein 100 (2+) H (Neg-Trace) mg/dL Urine Glucose (UA) Negative (Negative) mg/dL Urine Ketones 40 (Negative) mg/dL Urine Blood Negative (Negative) Urine Nitrite Negative (Negative) Ur Leukocyte Esterase Negative (Negative) Urine RBC 0-2 (0-2) /HPF Urine WBC 0-5 (0-5) /HPF Ur Squamous Epith Cells 0-2 (0-2) /HPF Urine Bacteria None Seen (None Seen) Hyaline Casts 0-2 (0-2) /LPF Influenza Type A (PCR) NEGATIVE (Negative) Influenza Type B (PCR) NEGATIVE (Negative) RSV RNA Qual (PCR) NEGATIVE (Negative) SARS-CoV-2 RNA (RT-PCR) NEGATIVE (Negative) Independent Historian Clinical information obtained from an independent historian. History obtained from or confirmed by: Spouse External Record Review External record reviewed: Inpatient record, Office record, Outpatient record, Prior outpatient labs, Prior outpatient radiology, Primary care record and Outside ED record Tests considered The following testing was considered but not selected: I considered ordering CT abd/pelvis however labs wnl, no concern for acute abdomen or infectious intra-abdominal pathology. Prescription Management I considered prescription management with: Other (zofran) Chronic Conditions Patient?s care impacted by: Other (chronic constipation) Social Determinants Patient?s care significantly limited by Social Determinants of Health including: Other Social Determinant of Health Medications Administered Discontinued Medications Generic Name Dose Route Start Last Admin Trade Name Freq PRN Reason Stop Dose Admin Diphenhydramine HCl 25 mg 05/17/23 05:57 05/17/23 06:21 Diphenhydramine Hcl 50 Mg/Ml Vial IVPUSH 05/17/23 05:58 25 mg ONCE ONE Administration Sodium Chloride 1,000 mls @ 999 mls/hr 05/17/23 06:00 05/17/23 08:18 Ns IV 05/17/23 07:00 Infused .[id number] JENNIFER Infusion Metoclopramide HCl 10 mg 05/17/23 05:57 05/17/23 06:25 Metoclopramide Hcl 10 Mg/2 Ml Vial IVPUSH 05/17/23 05:58 10 mg ONCE ONE Administration Critical Care Time Critical Care Time Critical Care Time: Yes Total Critical Care Time: 42 Attestation: Critical care time in the amount of 42 minutes has been provided to the patient in terms of direct patient care, frequent reevaluation, review and interpretation of medical data and results, and management of potentially life- threatening conditions. This is all outside of any medical procedures. Discharge Plan Discharge Clinical Impression: Gastroenteritis Patient Disposition: Home, Self-Care Instructions: Gastroenteritis (ED), Acute Nausea and Vomiting (ED) Additional Instructions: Your lab workup today was reassuring.? Your urine test was negative for infection and .? Your symptoms are most consistent with a viral stomach bug, also known as gastroenteritis.? The treatment for this is supportive care. Symptoms usually resolve on their own in 48-72 hours.? The recommendation is rest and lots of oral hydration.? Stick to a bland diet like soup and toast while you are not feeling well.? Zofran is an anti-nausea medication. This has been sent to your pharmacy for you to take as needed for nausea.? You can also try over the counter Pepto Bismol or Imodium as needed for upset stomach and diarrhea.? Follow up with your primary care provider as needed. If you develop new or worsening symptoms call 911 or come back to the ER for further evaluation. As discussed, your thyroid levels are elevated. Keep your appointment with your PCP this month as there may need to be changes made to your medications. Continue taking levothyroxine as prescribed. Do not miss any doses. Prescriptions: New ondansetron 4 mg tablet,disintegrating 4 mg PO DAILY PRN (Reason: nausea and vomiting) 5 Days Qty: 10 0RF No Action colchicine 0.6 mg tablet 0.6 mg PO BID Qty: 180 0RF levothyroxine 50 mcg tablet 50 mcg PO DAILY 90 Days Qty: 90 1RF gabapentin 300 mg capsule 300 mg PO BID 30 Days Qty: 60 0RF meclizine 25 mg tablet 25 mg PO DAILY PRN (Reason: Insomnia) 30 Days Qty: 30 0RF fluticasone propionate 50 mcg/actuation spray,suspension 2 spray intranasal BID cetirizine 10 mg tablet 10 mg PO DAILY acetaminophen [Tylenol Extra Strength] 500 mg tablet 500 mg PO Q6H PRN (Reason: fever or pain) Qty: 30 0RF losartan 50 mg tablet 50 mg PO BID docusate sodium [Colace] 100 mg capsule 200 mg PO BEDTIME Qty: 60 5RF omeprazole 20 mg capsule,delayed release(DR/EC) 40 mg PO DAILY 30 Days Qty: 60 5RF Linzess 290 mcg capsule 290 mcg PO QAM 30 Days Qty: 30 2RF pyridoxine (vitamin B6) 100 mg tablet 100 mg PO DAILY 90 Days Qty: 90 1RF Stand Alone Forms: Work/School Release
[2023-05-17 07:59] LABS: Magnesium 1.7 mg/dL (1.6-2.6)
[2023-05-17 08:21] LABS: TSH reflex Free T4 12.41 uIU/mL (0.32-4.0)
[2023-05-17 08:51] LABS: Free T4 (Free Thyroxine) 0.69 ng/dL (0.71-1.85)
[2023-05-17 09:10] LABS: Influenza A PCR NEGATIVE (Negative); Influenza B PCR NEGATIVE (Negative); Resp Syncy Virus RNA Qual PCR NEGATIVE (Negative); SARS COV2 PCR INHOUSE NEGATIVE (Negative)
[2023-05-17 09:26] VITALS: BP 127/82; PULSE 90; RESP 18; TEMP 36.7; O2SAT 100
--- NOTE | 2023-05-17 09:45 | PC.NURSE ---
urine obtained, pt given po for po trial per request of provider
[2023-05-17 09:47] LABS: Appearance Urine Clear; Color Urine Yellow; Glucose Urine UA Negative (Negative); Leukocyte Esterase Urine Negative (Negative); Nitrite Urine Negative (Negative); PH 5.5 (5.0-9.0); Specific Gravity - Urine 1.015 (1.005-1.025); UMIC TRIGGER UACC YES; Urine Blood Negative (Negative); Urine Ketones 40 mg/dL (Negative); Urine Protein 100 (2+) mg/dL (Neg-Trace)
[2023-05-17 09:50] LABS: Bacteria Urine None Seen (None Seen); Hyaline Casts Urine 0-2 /LPF (0-2); RBC Urine 0-2 /HPF (0-2); Squamous Epithelial Cell Urine 0-2 /HPF (0-2); WBC Urine 0-5 /HPF (0-5)
[2023-05-17 10:30] VITALS: BP 127/82; PULSE 90; RESP 18; TEMP 36.7; O2SAT 100
== END 2023-05-17 10:31 | disposition home or self-care (01) ==
PROVIDERS: Physician Assistant Medical; Emergency Provider Emergency Medicine; PCP Internal Medicine
DX: K52.9 Noninfective gastroenteritis and colitis, unspecified (principal); R11.2 Nausea with vomiting, unspecified; F17.210 Nicotine dependence, cigarettes, uncomplicated; Z11.52 Encounter for screening for COVID-19; Z20.822 Contact with and (suspected) exposure to COVID-19; Z79.899 Other long term (current) drug therapy
CPT/HCPCS: 0241U; 36415; 80053; 81001; 83690; 83735; 84439; 84443; 85027; 96361; 96374; 96375; 99284; 99285; J1200; J2765

== ENCOUNTER 2023-05-28 10:07 | Outpatient (AMB) | payer BC, SELFPAY ==
[2023-05-28 10:20] VITALS: BP 118/82; PULSE 69; O2SAT 100; BMI 29.3
--- NOTE | 2023-05-28 10:20 | A.OFFPC_ITS ---
Vital Signs 05/28/23 10:20 Height 5 ft Weight 150 lb 4 oz BMI 29.3 BP 118/82 Blood Pressure Location Lt brachial Position Sitting Pulse 69 Pulse Source Pulse Oximeter Pulse Oximetry (%) 100 Oxygen Delivery Method Room Air Intake Visit Reasons: 6 month f/U medication refill/pain management Allergies aspirin Allergy (Unknown, Verified 05/28/23 10:22) vomiting, GI upset Medication List - Last Reconciled 05/28/23 by Bryant Alejandra MD acetaminophen (Tylenol Extra Strength) 500 mg PO Q6H PRN cetirizine 10 mg PO DAILY colchicine 0.6 mg PO BID docusate sodium (Colace) 200 mg (2 x 100 mg) PO BEDTIME fluticasone propionate 50 mcg/actuation 2 sprays intranasal BID gabapentin 300 mg PO BID 30 days hydroxychloroquine 200 mg PO DAILY levothyroxine 100 mcg PO DAILY 90 days losartan 50 mg PO BID meclizine 25 mg PO DAILY PRN 30 days omeprazole 40 mg (2 x 20 mg) PO DAILY 30 days ondansetron 4 mg PO DAILY PRN 5 days pyridoxine (vitamin B6) 100 mg PO DAILY 90 days Tobacco use date assessed: 05/28/23 Dental Screening Dental Screen Date: 05/28/23 Did you have a dental visit in the last 12 months?: Yes Did you have a dental problem in the last 6 months where you did not have access to dental care?: No Was dental information given to patient?: Patient has dentist HPI 6 month f/U medication refill/pain management HPI Details Patient is a 47-year-old female came in today for her three-month follow-up appointment Patient suffers from lupus erythematosus, and have joint aches and pains She was started on gabapentin 300 mg last visit for the night which is helping her She is taking 100 mg of gabapentin at work as 300 is too high a dose for her I have told her she may take 100 in the morning and 100 in the afternoon, actually she can take it every 6 hour 100 if need be For now I have sent 90 capsules of 100 for her she has plenty 300 mg capsules Her thyroid test came back abnormal currently she is on levothyroxine 50 mcg I am increasing it to 100 mcg She is to repeat labs again in 2 months Patient has been suffering from viral gastroenteritis since She was evaluated in emergency room, patient says that she is feeling little better but still having lot of diarrhea and cramping She does not like to eat yogurt, I have sent probiotic for the patient At baseline patient have constipation. She is requesting a script so when she goes back to her baseline she can use it. 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 Mother No problems noted. 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 1. Little interest or pleasure in doing things: several days 2. Feeling down, depressed, or hopeless: not at all 3. Trouble falling or staying asleep, or sleeping too much: more than half the days 4. Feeling tired or having little energy: more than half the days 5. Poor appetite or overeating: several days 6. Feeling bad about yourself - or that you are a failure or have let yourself or your family down: not at all 7. Trouble concentrating on things, such as reading the newspaper or watching television: not at all 8. Moving or speaking so slowly that other people could have noticed. Or the opposite - being so fidgety or restless that you have been moving around a lot more than usual: several days 9. Thoughts that you would be better off or of hurting yourself in some way: not at all Total score: 7 Depression Screening Interpretation: Negative Depression Screening Done: Yes 36749 - PHQ-9 Billing: Yes Source: Developed by Drs. Gary Winters, Juany Larsen, John Paul Godoy and colleagues, with an educational matt from [employer] Thrive Questionnaire Date Thrive assessed: 01/12/23 AUDIT C Alcohol Use Questionnaire (AUDIT-C) 1. How often do you have a drink containing alcohol?: Never Total Score: 0 SILVANA-7 AMB Questionnaire SILVANA-7 Date SILVANA - 7 assessed: 01/12/23 Source: Developed by Drs. Gary Winters, Juany Larsen, John Paul Godoy and colleagues, with an educational matt from [employer] Review of Systems Const Denies chills and Denies fever(s) ENT Denies epistaxis and Denies nasal discharge Card Denies chest pain Resp Denies chest congestion, Denies cough and Denies hemoptysis GI Denies diarrhea and Denies nausea Skin/Breast Denies rash Neuro Reports no additional complaints Psych Reports no additional complaints Endo Reports no additional complaints Physical exam (Primary Care) Vital Signs: Last Vital Signs Pulse 69 05/28/23 10:20 BP 118/82 05/28/23 10:20 Pulse Ox 100 05/28/23 10:20 Oxygen Delivery Method Room Air 05/28/23 10:20 BMI result Body Mass Index 29.3 Tobacco/Smoking Status: Tobacco use Status Tobacco use date assessed 05/28/23 05/28/23 10:26 Patient Tobacco Use Status Former Tobacco user 05/28/23 10:26 Tobacco use type Cigarette 05/28/23 10:26 e-Cigarette/Vaping Use Currently Using 05/28/23 10:26 Depression Screening Interpretation: Negative Thrive Assessment: Date of Thrive Assessment Date Thrive assessed 01/12/23 05/28/23 10:26 Const General: cooperative, comfortable and no acute distress Orientation/consciousness: patient oriented x3 HENMT Head: Yes normocephalic Eyes General: appearance normal, both eyes and all related structures Neck Neck: Yes supple Resp Effort & Inspection: normal respiratory effort, no cough and no stridor Cardio Rhythm: regular rhythm Heart sounds: S1 normal heart sound present and S2 normal heart sound present Skin General skin exam: turgor normal Neuro General: patient oriented x3, tone normal and moves all extremities Extrem Right lower extremity: no edema Left lower extremity: no edema Assessment and Plan Assessment & Plan (1) Bilateral primary osteoarthritis of knee: Code(s): M17.0 - Bilateral primary osteoarthritis of knee (2) Fibromyalgia: Code(s): M79.7 - Fibromyalgia (3) Chronic pain: Code(s): G89.29 - Other chronic pain Qualifiers: Chronic pain type: chronic pain syndrome Qualified Code(s): G89.4 - Chronic pain syndrome (4) Nephropathy associated with another disease: Code(s): N08 - Glomerular disorders in diseases classified elsewhere (5) SLE (systemic lupus erythematosus): Comment: dx in her teens (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, most recent kidney biopsy in 2002 with no active features of lupus nephritis with ongoing proteinuria, body aches, pericarditis with effusion that required pericardial window, abnormal nailfold capillaroscopy +++SSa) HCQ Code(s): M32.9 - Systemic lupus erythematosus, unspecified Qualifiers: Systemic lupus erythematosus organ involvement: pericarditis Systemic lupus erythematosus type: other Qualified Code(s): M32.12 - Pericarditis in systemic lupus erythematosus (6) HTN (hypertension): Code(s): I10 - Essential (primary) hypertension (7) Pericarditis associated with systemic lupus erythematosus: Code(s): I31.9 - Disease of pericardium, unspecified; M32.12 - Pericarditis in systemic lupus erythematosus Qualifiers: Chronic pericarditis complication: unspecified complication status Chronicity: chronic Qualified Code(s): M32.12 - Pericarditis in systemic lupus erythematosus (8) Hypothyroid: Code(s): E03.9 - Hypothyroidism, unspecified Qualifiers: Hypothyroidism type: unspecified Qualified Code(s): E03.9 - Hypothyroidism, unspecified Plan Patient is a 47-year-old female came in today for her three-month follow-up appointment Patient suffers from lupus erythematosus, and have joint aches and pains She was started on gabapentin 300 mg last visit for the night which is helping her She is taking 100 mg of gabapentin at work as 300 is too high a dose for her I have told her she may take 100 in the morning and 100 in the afternoon, actually she can take it every 6 hour 100 if need be For now I have sent 90 capsules of 100 for her she has plenty 300 mg capsules Her thyroid test came back abnormal currently she is on levothyroxine 50 mcg I am increasing it to 100 mcg She is to repeat labs again in 2 months Patient has been suffering from viral gastroenteritis since Easter She was evaluated in emergency room, patient says that she is feeling little better but still having lot of diarrhea and cramping She does not like to eat yogurt, I have sent probiotic for the patient At baseline patient have constipation. She is requesting a script so when she goes back to her baseline she can use it. She can buy Senokot S tablet [id number] and may take 1 or 2 at night as needed Follow-up 3 months labs are needed for thyroid in 2 months Orders: Orders TSH reflex Free T4 Today E03.9 - Hypothyroidism, unspecified Medications: New Lactobacillus acidophilus (Probiotic Gold Acidophilus) 1,000 mmu cells PO DAILY 90 caps 0RF gabapentin 100 mg PO DAILY 90 caps 0RF sennosides-docusate sodium 8.6-50 mg (Senokot-S) 1 tab-cap PO BEDTIME 90 tabs 0RF constipation 90 days K59.03 - Drug induced constipation, T40.2X5A - Adverse effect of other opioids, initial encounter Changed From levothyroxine 50 mcg PO DAILY 90 days 90 tabs 1RF To levothyroxine 100 mcg PO DAILY 90 tabs 0RF 90 days Coding Level of Care Code Est Pt Level 4 (60112) Diagnoses Bilateral primary osteoarthritis of knee M17.0 Fibromyalgia M79.7 Chronic pain syndrome G89.4 Chronic pain type: chronic pain syndrome Nephropathy associated with another disease N08 Other systemic lupus erythematosus with pericarditis M32.12 Systemic lupus erythematosus organ involvement: pericarditis Systemic lupus erythematosus type: other HTN (hypertension) I10 Chronic pericarditis associated with systemic lupus erythematosus (SLE), unspecified complication status M32.12 Chronic pericarditis complication: unspecified complication status Chronicity: chronic Hypothyroidism, unspecified type E03.9 Hypothyroidism type: unspecified
== END 2023-05-28 10:50 | disposition home or self-care (01) ==
LOC: HO.HMGC 10:07
PROVIDERS: PCP Internal Medicine; Visit Provider Internal Medicine
DX: M17.0 Bilateral primary osteoarthritis of knee (principal); M32.12 Pericarditis in systemic lupus erythematosus; M79.7 Fibromyalgia; G89.4 Chronic pain syndrome; N08 Glomerular disorders in diseases classified elsewhere; I10 Essential (primary) hypertension; E03.9 Hypothyroidism, unspecified
CPT/HCPCS: 99214

== ENCOUNTER 2023-06-17 09:43 | Outpatient (AMB) | payer BC, SELFPAY ==
[2023-06-17 10:27] VITALS: BP 110/72; PULSE 92; TEMP 36.6; O2SAT 99; BMI 28.9
--- NOTE | 2023-06-17 10:27 | AM.OFFWIN_ITS ---
Intake Vital Signs 06/17/23 10:27 Height 5 ft Weight 148 lb BMI 28.9 BP 110/72 Blood Pressure Location Lt brachial Position Sitting Pulse 92 Pulse Source Pulse Oximeter Temp 97.9 F Temp Source Temporal Artery Scan Pulse Oximetry (%) 99 Oxygen Delivery Method Room Air Intake Visit Reasons: EP right ear infection? left eye redness Intake Note: pt is here today for rt ear infection and lft eye redness started yesterday Patient Tobacco Use Status: Former Tobacco user Allergies aspirin Allergy (Unknown, Verified 06/17/23 10:30) vomiting, GI upset Do you need a note to return to daycare/school/sports/work: No HPI HPI Comments History of Present Illness Details 47 y/o female patient who presents to [facility] with c/o right ear discomfort and left eye redness since yesterday. 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 Mother No problems noted. 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 Cognitive needs: No Hearing needs: No Vision needs: Yes Female Reproductive History Menstrual Age of Menarche: 10 Review of Systems Const All systems reviewed & are unremarkable except as noted in HPI and below Physical Exam Vital Signs: Last Vital Signs Temp 97.9 F 06/17/23 10:27 Pulse 92 06/17/23 10:27 BP 110/72 06/17/23 10:27 Pulse Ox 99 06/17/23 10:27 Oxygen Delivery Method Room Air 06/17/23 10:27 BMI result Body Mass Index 28.9 Const General: comfortable and no acute distress Orientation/consciousness: patient oriented x3 HEENT Head: Yes normocephalic Ears: external ears normal and TM abnormal bulging and with fluid behind the TM bilateral; not with effusion, not erythematous, not perforated, not retracted and not scarred General nose exam: Abnormal mucous membranes and turbinates present boggy and erythematous Face and sinus: Yes sinuses nontender Mouth: moist mucous membranes Throat: Yes posterior oropharynx normal Eyes Eyelids: Yes eyelids normal Conjunctivae: conjunctival abnormal (A small size of bright red patch left eye. Right eye normal) left Pupils: Equal, round and reactive pupils present EOM: EOMs intact bilaterally Direct Ophthalmoscopy: normal light reflex Neuro General: patient oriented x3 Cranial nerves: Yes Equal, round and reactive pupils present Assessment & Plan Assessment & Plan (1) Subconjunctival hemorrhage: Code(s): H11.30 - Conjunctival hemorrhage, unspecified eye Qualifiers: Laterality: left Qualified Code(s): H11.32 - Conjunctival hemorrhage, left eye Plan: - Do not wear contact lens until redness goes away - Eye hygiene - OTC artificial tear drops (2) Ear pain, right: Code(s): H92.01 - Otalgia, right ear Plan: - TM clear no infection - Acetaminophen for pain relief. Coding Level of Care Code Est Pt Level 3 (69684) Diagnoses Subconjunctival hemorrhage of left eye H11.32 Laterality: left Ear pain, right H92.01 Time Spent (min) 15
== END 2023-06-17 10:59 | disposition home or self-care (01) ==
PROVIDERS: PCP Internal Medicine; Visit Provider Nurse Practitioner Family
DX: H11.32 Conjunctival hemorrhage, left eye (principal); H92.01 Otalgia, right ear
CPT/HCPCS: 99213

== ENCOUNTER 2023-07-19 08:55 | Outpatient (REF) | payer BC, SELFPAY ==
--- NOTE | ~2023-07-19 | US_ITS ---
EXAMINATION: US RETROPERITONEAL LIMITED (RENAL ONLY) CLINICAL INFORMATION: Calculus of kidney. COMPARISON: CT abdomen without and with contrast 04/06/2023. Renal ultrasound 10/05/2022. X-ray abdomen 09/02/2022. Renal ultrasound and x-ray abdomen 04/24/2022. TECHNIQUE: Real-time imaging of the kidneys. FINDINGS: RIGHT KIDNEY: 11.7 x 4.7 x 5.2 cm (SAG x AP x TRV). The kidney is normal in size and contour. There is increased echogenicity of the renal cortex. Renal cortical thickness is normal. No calculi or focal parenchymal lesions. No hydronephrosis. LEFT KIDNEY: 10.8 x 4.5 x 5.6 cm (SAG x AP x TRV). The kidney is normal in size and contour. Renal cortical thickness is normal. No renal calculi or hydronephrosis. There is increased echogenicity of the renal cortex. 2.7 x 2.6 x 3.3 cm lower pole cyst with septations previously measured 3.7 cm on renal ultrasound of 06/05/2022 and 3.3 x 3.[address] scan abdomen and pelvis 04/06/2023, no further follow-up recommended. US/US renal BI IMPRESSION: 1. Increased echogenicity of the renal cortices bilaterally. 2. 3.3 cm left lower pole renal cyst with septations, no further follow-up recommended.
== END 2023-07-19 08:56 | disposition home or self-care (01) ==
LOC: HO.US 08:55
PROVIDERS: PCP Internal Medicine; Visit Provider Nurse Practitioner Family
DX: N20.0 Calculus of kidney (principal)
CPT/HCPCS: 76775

== ENCOUNTER 2023-07-29 13:29 | Outpatient (AMB) | payer BC, SELFPAY ==
--- NOTE | 2023-07-29 13:34 | MHC.OFFVIS ---
Intake Visit Reasons: 3m/US(set) Intake Note: Patient is Present for Follow Up Urology Medication: Vitamin B6 Antibiotic Allergies: None Blood Thinners:None Patient reports some right flank pain. Allergies aspirin Allergy (Unknown, Verified 07/29/23 21:20) vomiting, GI upset Medication List - Last Reconciled 07/29/23 by KATELYNN Cantu-ROSANGELA acetaminophen (Tylenol Extra Strength) 500 mg PO Q6H PRN cetirizine 10 mg PO DAILY colchicine 0.6 mg PO BID docusate sodium (Colace) 200 mg (2 x 100 mg) PO BEDTIME fluticasone propionate 50 mcg/actuation 2 sprays intranasal BID gabapentin 300 mg PO BID 30 days gabapentin 100 mg PO DAILY hydroxychloroquine 200 mg PO DAILY Lactobacillus acidophilus (Probiotic Gold Acidophilus) 1,000 mmu cells PO DAILY levothyroxine 100 mcg PO DAILY 90 days losartan 50 mg PO BID meclizine 25 mg PO DAILY PRN 30 days omeprazole 40 mg (2 x 20 mg) PO DAILY 30 days ondansetron 4 mg PO DAILY PRN 5 days pyridoxine (vitamin B6) 100 mg PO DAILY 90 days sennosides-docusate sodium 8.6-50 mg (Senokot-S) 1 tab-cap PO BEDTIME 90 days HPI Comments Details: Nrey is a very pleasant 47-year-old female patient of Dr. Alejandra. She has a past medical history of myositis, hypothyroidism, systemic lupus erythmatosus, urinary tract infection, nephrolithiasis, lupus nephritis, pericarditis associated with systemic lupus, and hypertension. She presents to the office today for a follow up of her nephrolithiasis and complex renal cysts. Recent renal imaging results reviewed with the patient today. Bilateral kidneys with no calculi or hydronephrosis. Left side with increased echogenicity of the renal cortex. 2.7 x 2.6 x 3.3 cm lower pole cyst with septations previously measured 3.7 cm on renal ultrasound of 06/05/2022 and 3.3 x 3.[address] scan abdomen and pelvis 04/06/2023, no further follow-up recommended per radiology report. In discussion with the patient today she reports to be doing feeling well. She reports noting intermittent right-sided flank pain over the last few weeks. Discussed at length potential causes of flank pain. Discussed further workup to include CT for further assessment evaluation however patient will continue with surveillance monitoring at this time as she reports pain is intermittent. She discusses her upcoming appointments with her data migration consultant as well as her medical translator. Patient previously underwent right-sided ESWL with Dr. Sutton on 09/06. When asked she currently denies any bothersome urinary issues. She denies urinary urgency, urinary frequency, incontinence, nocturia, hematuria, dysuria, foul smelling urine, changes to urinary stream, fever, and or chills. She is happy with her current voiding parameters. When asked she reports compliance with vitamin B6 daily and continues to drink plenty of water daily however PH today on UA 5.5. This was discussed at length. In office urinalysis results reviewed with the patient today. 2+ protein however patient reports to be following up with Nephrology as well as rheumatology. She otherwise offers no other issues or concerns at this time. Nephrolithiasis Recurrent nephrolithiasis 08/05 presented to emergency department with right-sided flank pain Imaging - 07/05 CT scan left 2.4 cm renal cysts, 6 mm distal right ureteric stone with mild hydroureteronephrosis, 6 mm right renal stone - 09/04 renal ultrasound 6 mm stone in renal pelvis - 09/06 renal ultrasound no stone right, left side complex renal cyst -04/10 CT Urogram no stone on the right, left side complex renal cysts with 5 mm stone left lower pole. -08/08 renal ultrasound 3.3 cm left lower pole renal cysts with septations. Interventions - 08/05 right ureteroscopy laser lithotripsy Stone analysis - unknown Therapeutic plan - on B6 - surveillance imaging [facility] Medical History Joint pain in fingers of right hand Myositis Hypothyroid SLE (systemic lupus erythematosus) Pericardial effusion UTI (urinary tract infection) Kidney stones Dysplasia of cervix, low grade ([place] 1) 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 Mother No problems noted. 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 Cognitive needs: No Hearing needs: No Vision needs: Yes Female Reproductive History Menstrual Age of Menarche: 10 Review of Systems Const Reports as per HPI Eyes Reports no additional complaints ENT Reports no additional complaints Card Reports no additional complaints Resp Reports no additional complaints GI Reports no additional complaints Reports as per HPI Musc Reports no additional complaints Neuro Reports no additional complaints Psych Reports no additional complaints Endo Reports no additional complaints Physical Exam Const General: cooperative, healthy appearing, comfortable, no acute distress, well developed, alert and awake Orientation/consciousness: patient oriented x3 Limitations: no limitations HEENT Head: Yes normal to inspection, Yes normocephalic and Yes atraumatic Ears: hearing grossly normal bilaterally Eyes General: appearance normal, both eyes and all related structures Neck Neck: Yes normal visual inspection and Yes trachea midline Chest Chest palpation & inspection: normal inspection of the chest Resp Effort & Inspection: normal respiratory effort and able to speak in complete sentences Cardio Rate: regular rate GI Inspection: Yes normal to inspection General: Yes no CVA tenderness Back/Spine/Pelvis Back: no CVA tenderness Skin General skin exam: no rashes or lesions noted Neuro General: patient oriented x3 Extrem General: Yes normal to inspection Psych Appearance: grossly normal and well kempt Mental Status: mental status grossly normal Speech and movement: Normal speech and movement present and Clear speech present Affect: normal affect Attitude: cooperative Thought process: Normal thought process present Thought content: Normal thought content present Insight: Fair insight present (Psych) Judgement: Fair judgement present (Psych) Results AMB Urinalysis, Automated UA Leukoctes 0 Deshaun/uL Last Edit by YARELY Cortez on 07/29/23 13:49 UA Nitrite Negative Last Edit by YARELY Cortez on 07/29/23 13:49 UA Urobilinogen 0.2 mg/dL Last Edit by Lilibeth Tony, RMA on 07/29/23 13:49 UA Protein 100 mg/dL Last Edit by Lilibeth Tony, RMA on 07/29/23 13:49 UA pH 5.5 Last Edit by Lilibeth Tony, RMA on 07/29/23 13:49 UA Blood 80 Partha/uL Last Edit by Lilibeth Tony, RMA on 07/29/23 13:49 UA Specific [place] 1.025 Last Edit by Lilibeth Tony, RMA on 07/29/23 13:49 UA Ketone Negative Last Edit by Lilibeth Tony, RMA on 07/29/23 13:49 UA Bilirubin 0 mg/dL Last Edit by Lilibeth Tony, RMA on 07/29/23 13:49 UA Glucose 0 mg/dL Last Edit by Lilibeth Tony, A on 07/29/23 13:49 Results Reviewed Results Reviewed: Laboratory Last Values Urine pH (Auto) 5.5 07/29/23 13:37 Specific [place] (Auto) 1.025 07/29/23 13:37 Urine Protein (Auto) 100 mg/dL 07/29/23 13:37 Glucose (UA)(Auto) 0 mg/dL 07/29/23 13:37 Urine Ketones (Auto) Negative 07/29/23 13:37 Urine Blood (Auto) 80 Partha/uL 07/29/23 13:37 Urine Nitrite (Auto) Negative 07/29/23 13:37 Urine Bilirubin (Auto) 0 mg/dL 07/29/23 13:37 Urine Urobilinogen (Auto) 0.2 mg/dL 07/29/23 13:37 Leukocyte Esterase (Auto) 0 Deshaun/uL 07/29/23 13:37 Date of Service: 07/19/23 EXAMINATION: US RETROPERITONEAL LIMITED (RENAL ONLY) FINDINGS: RIGHT KIDNEY: 11.7 x 4.7 x 5.2 cm (SAG x AP x TRV). The kidney is normal in size and contour. There is increased echogenicity of the renal cortex. Renal cortical thickness is normal. No calculi or focal parenchymal lesions. No hydronephrosis. LEFT KIDNEY: 10.8 x 4.5 x 5.6 cm (SAG x AP x TRV). The kidney is normal in size and contour. Renal cortical thickness is normal. No renal calculi or hydronephrosis. There is increased echogenicity of the renal cortex. 2.7 x 2.6 x 3.3 cm lower pole cyst with septations previously measured 3.7 cm on renal ultrasound of 06/05/2022 and 3.3 x 3.[address] scan abdomen and pelvis 04/06/2023, no further follow-up recommended. IMPRESSION: 1. Increased echogenicity of the renal cortices bilaterally. 2. 3.3 cm left lower pole renal cyst with septations, no further follow-up recommended. Assessment & Plan Assessment & Plan (1) Right flank pain: Code(s): R10.9 - Unspecified abdominal pain Category: Medical (2) Renal cyst: Code(s): N28.1 - Cyst of kidney, acquired Category: Medical (3) Proteinuria: Code(s): R80.9 - Proteinuria, unspecified Category: Medical Plan In office urinalysis results reviewed with the patient today; as noted above. Recent renal imaging results reviewed with the patient today; as noted above. Discussed at length importance of drinking plenty of water daily. Continue follow-up with rheumatology and nephrology. Discussed at length potential causes for intermittent right-sided flank pain patient is experiencing; discussed further workup to include CT however patient will continue with surveillance monitoring at this time. She denies any bothersome urinary issues. She reports be happy with current voiding parameters. Continue vitamin B6. Continue adding 1 oz of lemon juice to water daily. Will obtain renal ultrasound in 3 months. Follow-up in 3 months with imaging to be completed prior; or sooner with any issues, concerns, and or questions. Orders: Orders US renal BI 3 Months N28.1 - Cyst of kidney, acquired, R10.9 - Unspecified abdominal pain AMB Urinalysis Automated 07/29/23 Z13.9 - Encounter for screening, unspecified Patient Instructions: The patient had an opportunity to ask questions regarding the treatment plan. All questions were answered. Physical exam, labs, and imaging were discussed and reviewed in detail. As well as risks, benefits, and discussion of treatment choices. No major barriers to understanding were identified. The patient expressed understanding and agreement with the above treatment plan. The patient was made aware they should contact our office by phone for worsening of their current condition, the appearance of new symptoms, or with any questions or concerns. Compliance is encouraged with any medications and follow up testing that is ordered. It is a privilege to be allowed the opportunity to participate in? your urological care.? Again, if you have any questions or concerns If you have any questions or concerns please do not hesitate to contact me. The office is [phone]. This note is constructed using voice recognition software. While every effort has been made to ensure accuracy public information officer errors may have been included. Yours sincerely, ELIAZAR Cantu Coding Level of Care Code Est Pt Level 3 (50882) Diagnoses Right flank pain R10.9 Renal cyst N28.1 Proteinuria R80.9
== END 2023-07-29 14:22 | disposition home or self-care (01) ==
PROVIDERS: PCP Internal Medicine; Visit Provider Nurse Practitioner Family
DX: R10.9 Unspecified abdominal pain (principal); N28.1 Cyst of kidney, acquired; R80.9 Proteinuria, unspecified
CPT/HCPCS: 99213

== ENCOUNTER → 2023-07-29 13:29 | Outpatient (BNVA) | payer BC, SELFPAY | PROVIDERS: PCP Internal Medicine; Visit Provider Nurse Practitioner Family | DX: R10.9 Unspecified abdominal pain (principal); N28.1 Cyst of kidney, acquired; R80.9 Proteinuria, unspecified | CPT/HCPCS: 81003 ==

== ENCOUNTER 2023-08-04 09:00 | Outpatient (RCR) | payer BC, SELFPAY | END 2023-08-05 13:50 | disposition home or self-care (01) | LOC: HO.PT 09:00 | PROVIDERS: PCP Internal Medicine; Visit Provider Internal Medicine Rheumatology | DX: M17.12 Unilateral primary osteoarthritis, left knee (principal); M79.7 Fibromyalgia | CPT/HCPCS: 97110; 97116; 97161; 97530; 97535 ==

== ENCOUNTER 2023-08-28 02:55 | Emergency (ER) | payer BC, SELFPAY ==
--- NOTE | 2023-08-28 | ECG_ITS ---
Test Reason : chest pain Blood Pressure : / mmHG Vent. Rate : 081 BPM Atrial Rate : 081 BPM P-R Int : 152 ms QRS Dur : 126 ms QT Int : 394 ms P-R-T Axes : 034 -14 011 degrees QTc Int : 457 ms Normal sinus rhythm Right bundle branch block Abnormal ECG When compared with ECG of 21-JAN-2022 04:36, No significant change was found Referred By: Generic ED Physician Electronically Signed By:Maynor Chávez
--- NOTE | ~2023-08-28 | XR_ITS ---
EXAMINATION: XR CHEST CLINICAL INFORMATION: Chest pain. Elevated troponin. COMPARISON: Chest radiograph dated 02/20/2022. TECHNIQUE: Frontal view of the chest was obtained. FINDINGS: The heart is normal in size. The lungs are clear. There is no pleural effusion. No pneumothorax. No acute osseous abnormality. XR/XR chest 1V IMPRESSION: Stable appearance of the heart and lungs. No active disease.
[2023-08-28 03:05] VITALS: BP 116/81; PULSE 83; RESP 18; TEMP 36.7; O2SAT 100; BMI 28.5
[2023-08-28 03:12] LABS: MANUAL DIFF FLAG NO
[2023-08-28 03:13] LABS: Basophils Percent Auto 0.6 % (0-2); Eosinophils Absolute Auto 0.1 X10*3/uL (0.0-0.4); Eosinophils Percent Auto 1.3 % (0-4); Hematocrit 37.2 % (37.0-47.0); Imm Gran Abs Auto 0.02 X10*3/uL (0.00-0.03); Imm Gran Pct Auto 0.3 % (0.0-0.4); Lymphocytes Absolute Auto 2.6 X10*3/uL (1.2-4.9); Lymphocytes Percent Auto 37.7 % (20-40); Mean Corpuscular HGB Conc 34.9 g/dl (31.0-35.0); Mean Corpuscular Hemoglobin 30.4 pg (27.0-33.0); Mean Corpuscular Volume 86.9 fL (80.0-98.0); Mean Platelet Volume 10.9 fL (9.4-12.3); Monocytes Absolute Auto 0.4 X10*3/uL (0.1-1.2); Monocytes Percent Auto 6.3 % (2-11); Neutrophils Absolute Auto 3.7 x10*3/uL (2.0-8.3); Neutrophils Percent Auto 53.8 % (45-73); Platelet Count 193 X10*3/uL (160-400); Red Blood Count 4.28 X10*6/uL (4.20-5.50); White Blood Count 6.8 X10*3/uL (4.8-10.8)
[2023-08-28 03:30] LABS: Alanine Aminotransferase 11 U/L (0-31); Albumin Level 3.9 g/dL (3.5-5.0); Alkaline Phosphatase 74 U/L (39-117); Anion Gap 10 (12-20); Aspartate Amino Transferase 18 U/L (5-31); Bilirubin Total 0.2 mg/dL (0.0-1.0); Blood Urea Nitrogen 16 mg/dL (9-16); Calcium 9.5 mg/dL (8.4-10.2); Carbon Dioxide 24 mmol/L (22-29); Chloride 108 mmol/L (96-108); Creatinine Clr Calc Pharmacy 65.6; Estimated Glomerular Filt Rate > 60; Glucose Random 94 mg/dL (60-115); Potassium 3.6 mmol/L (3.3-5.1); Sodium 138 mmol/L (135-145); Total Protein 6.9 g/dL (6.5-8.0)
[2023-08-28 05:03] VITALS: BP 135/77; PULSE 82; RESP 16; TEMP 36.5; O2SAT 100
[2023-08-28 05:31] LABS: Troponin-I High Sensitivity 32.1 ng/L (<3.5-17.0)
[2023-08-28 06:43] VITALS: BP 120/86; PULSE 77; RESP 13; TEMP 36.8; O2SAT 99
--- NOTE | 2023-08-28 07:11 | ED_ITS ---
HPI - Chest Pain General Chief Complaint: Chest Pain Stated Complaint: chest pain Time Seen by Provider: 08/28/23 06:45 Source: patient Mode of arrival: ambulatory Limitations: no limitations History of Present Illness ED Provider: Raghav PETTY HPI narrative: 47-year-old female SLE on Plaquinel, history of pericardial effusion, history of pericarditis, cardiomyopathy with EF 45%, RBBB, lupus nephritis presents to the emergency department with complaints of left-sided chest pain for the past 2 weeks, nonradiating however she has noticed that she has been getting intermittent tingling to her left upper extremity and this is what prompted her to come in today. She reports that she has a history of pericarditis and this episode feels very similar to her previous episodes of pericarditis. She has been taking ibuprofen with little to no relief. Reports pain is worse with lying down better with sitting up. She describes the pain as left-sided, sharp/pressure and at times associated with the upper extremity tingling on the left. No known sick contacts, no recent illness. Denies nausea, vomiting, jaw pain, diarrhea, headache, vision changes, dizziness, shortness of breath. Related Data Home Medications ?Medication ?Instructions ?Recorded ?Confirmed losartan 50 mg tablet 50 mg PO BID 12/13/19 07/29/23 fluticasone propionate 50 2 spray intranasal BID 06/17/20 07/29/23 mcg/actuation nasal spray,suspension cetirizine 10 mg tablet 10 mg PO DAILY 08/12/21 07/29/23 hydroxychloroquine 200 mg tablet 200 mg PO DAILY 05/28/23 07/29/23 Previous Rx's ?Medication ?Instructions ?Recorded docusate sodium 100 mg capsule 200 mg (2 x 100 mg) PO BEDTIME #60 10/26/22 (Colace) caps omeprazole 20 mg capsule,delayed 40 mg (2 x 20 mg) PO DAILY 30 days 10/26/22 release #60 caps acetaminophen 500 mg tablet 500 mg PO Q6H PRN fever or pain 01/20/23 (Tylenol Extra Strength) #30 tabs colchicine 0.6 mg tablet 0.6 mg PO BID #180 tabs 02/10/23 pyridoxine (vitamin B6) 100 mg 100 mg PO DAILY 90 days #90 tabs 04/23/23 tablet gabapentin 300 mg capsule 300 mg PO BID 30 days #60 caps 04/30/23 meclizine 25 mg tablet 25 mg PO DAILY PRN Insomnia 30 04/30/23 days #30 tabs ondansetron 4 mg disintegrating 4 mg PO DAILY PRN nausea and 05/17/23 tablet vomiting 5 days #10 tabs Lactobacillus acidophilus 1 1,000 mmu cells PO DAILY #90 caps 05/28/23 billion cell capsule (Probiotic Gold Acidophilus) gabapentin 100 mg capsule 100 mg PO DAILY #90 caps 05/28/23 levothyroxine 100 mcg tablet 100 mcg PO DAILY 90 days #90 tabs 05/28/23 sennosides 8.6 mg-docusate sodium 1 tab-cap PO BEDTIME constipation 05/28/23 50 mg tablet (Senokot-S) 90 days #90 tabs acetaminophen 325 mg capsule 650 mg (2 x 325 mg) PO Q6H PRN 08/28/23 (Tylenol) pain #30 caps colchicine 0.6 mg capsule 0.6 mg PO DAILY #14 caps 08/28/23 Allergies Allergy/AdvReac Type Severity Reaction Status Date / Time aspirin Allergy Unknown vomiting, Verified 08/28/23 03:13 GI upset Review of Systems 2 Review of Systems: Yes all other systems are reviewed and are negative PMFSH Past Medical History Attestation statement: The following information was validated with the patient. 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 Mother No problems noted. 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 Oriented X3.? No acute distress.? Head: Normocephalic, atraumatic, no step-offs or deformities Eyes: Pupils equal, round and reactive to light.? Neck: Normal inspection.? Neck supple.? CVS: Normal heart rate and rhythm.? Pulses normal.? Respiratory: No respiratory distress.? Breath sounds normal.? Abdomen: Soft and nontender.? Skin: Skin warm and dry.? Normal skin color.? Normal skin turgor.? Extremities: No lower extremity edema.? No calf ttp. 5/5 strength to bilateral upper and lower extremities Neuro: Oriented X 3.? No motor deficit.? No sensory deficit. CN 2-12 intact Course Reevaluation(s) Reevaluation #1: CBC unremarkable. Chemistry no acute findings requiring intervention. Troponin 30 at 03:00, 32.1 at 05:00 and at 07:41 28.4. I did discuss this case with Cardiology and shared EKG with them. This is likely pericarditis. Chest x-ray unremarkable. Time: 08:52 Reevaluation #2: Cardiology recommends discharge with colchicine. Patient educated on this plan Educated patient on diagnosis and treatment plan, answered all question, patient verbalizes understanding. At this time patient will be discharged home, advised to return with new or worsening symptoms. Educated on worrisome signs and symptoms and when to return. At this time I feel comfortable discharge home. Time: 09:10 Medications Administered Discontinued Medications Generic Name Dose Route Start Last Admin Trade Name Trista PRN Reason Stop Dose Admin Ketorolac Tromethamine 30 mg 08/28/23 08:45 08/28/23 09:01 Ketorolac Tromethamine 30 Mg/Ml Vial IM 08/28/23 08:46 30 mg ONCE ONE Administration Medical Decision Making Medical Decision Making [facility] Narrative: 07 47 year old female hx of pericarditis presents with left-sided chest pain x2 weeks. This feels like her previous episodes of pericarditis. Physical exam benign History and physical exam concerning for ACS versus pericarditis versus noncardiac related chest pain versus musculoskeletal pain. Unlikely pulmonary embolism patient is PERC negative, unlikely dissection, acute respiratory distress, pneumothorax. Plan labs, imaging. Will give Toradol Differential Diagnosis Differential Diagnoses: The differential diagnosis associated with the presentation includes History and physical exam concerning for ACS versus pericarditis versus noncardiac related chest pain versus musculoskeletal pain. Unlikely pulmonary embolism patient is PERC negative, unlikely dissection, acute respiratory distress, pneumothorax. Admission/Observation Consideration of admission/observation: Escalation of care including admission/observation considered Lab Data [facility] Lab Attestation statement: I reviewed the patient's lab results. 08/28/23 03:07 08/28/23 03:07 Labs: Lab Results 08/28/23 08/28/23 08/28/23 Range/Units 03:07 05:07 07:41 WBC 6.8 (4.8-10.8) X10*3/uL RBC 4.28 (4.20-5.50) X10*6/uL Hgb 13.0 (12.0-16.0) g/dl Hct 37.2 (37.0-47.0) % MCV 86.9 (80.0-98.0) fL MCH 30.4 (27.0-33.0) pg MCHC 34.9 (31.0-35.0) g/dl RDW 13.0 (11.0-16.0) % Plt Count 193 (160-400) X10*3/uL MPV 10.9 (9.4-12.3) fL Immature Gran % (Auto) 0.3 (0.0-0.4) % Neut % (Auto) 53.8 (45-73) % Lymph % (Auto) 37.7 (20-40) % Sibley % (Auto) 6.3 (2-11) % Eos % (Auto) 1.3 (0-4) % Baso % (Auto) 0.6 (0-2) % Lymph # (Auto) 2.6 (1.2-4.9) X10*3/uL [place]y # (Auto) 0.4 (0.1-1.2) X10*3/uL Eos # (Auto) 0.1 (0.0-0.4) X10*3/uL Baso # (Auto) 0.0 (0.0-0.2) X10*3/uL Abs Immat Gran (auto) 0.02 (0.00-0.03) X10*3/uL Absolute Neuts (auto) 3.7 (2.0-8.3) x10*3/uL Absolute Nucleated RBC 0.000 (0.0-0.012) X10*3/uL Nucleated RBC % (auto) 0.0 (0.0-0.2) /100WBC Sodium 138 (135-145) mmol/L Potassium 3.6 (3.3-5.1) mmol/L Chloride 108 (96-108) mmol/L Carbon Dioxide 24 (22-29) mmol/L Anion Gap 10 L (12-20) BUN 16 (9-16) mg/dL Creatinine 0.88 (0.5-1.4) mg/dL Estim Creat Clear Calc 65.6 Estimated GFR > 60 Random Glucose 94 (60-115) mg/dL Calcium 9.5 (8.4-10.2) mg/dL Total Bilirubin 0.2 (0.0-1.0) mg/dL AST 18 (5-31) U/L ALT 11 (0-31) U/L Alkaline Phosphatase 74 (39-117) U/L Troponin I High Sens 30.0 H D 32.1 H 28.4 H (<3.5-17.0) ng/L Total Protein 6.9 (6.5-8.0) g/dL Albumin 3.9 (3.5-5.0) g/dL Influenza Type A (PCR) NEGATIVE (Negative) Influenza Type B (PCR) NEGATIVE (Negative) RSV RNA Qual (PCR) NEGATIVE (Negative) SARS-CoV-2 RNA (RT-PCR) NEGATIVE (Negative) Independent Interpretation I performed an independent interpretation of an: EKG (Vent. Rate : 081 BPM Atrial Rate : 081 BPM P-R Int : 152 ms QRS Dur : 126 ms QT Int : 394 ms P-R-T Axes : 034 -14 011 degrees QTc Int : 457 ms Normal sinus rhythm Right bundle branch block Abnormal ECG When compared with ECG of 21-JAN-2022 04:36, No significant change ) and Plain X-Ray (XR/XR chest 1V IMPRESSION: Stable appearance of the heart and lungs. No active disease. ) Radiology Impression Discussion of test interpretation with radiology: I have reviewed the radiologist's reading. External Record Review External record reviewed: Inpatient record, Office record, Outpatient record, Prior outpatient labs, Prior outpatient radiology, Primary care record and Outside ED record Prescription Management I considered prescription management with: Pain Medication Chronic Conditions Patient?s care impacted by: Hypertension and Other (hypertension, SLE, lupus nephritis, pericardial effusion, pericarditis associated with SLE, RBBB) Critical Care Time Critical Care Time Critical Care Time: Yes Total Critical Care Time: 35 Attestation: I attest to this time spent taking care of the patient, obtaining history, physical, reviewing labs, imaging, speaking to my attending, specialist or hospitalist. Discharge Plan Discharge Clinical Impression: Pericarditis associated with systemic lupus erythematosus Qualifiers: Chronicity: chronic Chronic pericarditis complication: unspecified complication status Qualified Code(s): M32.12 - Pericarditis in systemic lupus erythematosus Patient Disposition: Home, Self-Care Instructions: Acute Pericarditis (ED) Additional Instructions: Take your medications as prescribed. If you were prescribed antibiotics today, it is important that you take your medication to their entirety, do not skip any doses, do not finish them early. Follow-up with your primary care provider this week. Return to the emergency department with new or worsening symptoms. Such as fevers, chills, chest pain, shortness of breath, nausea, vomiting, dizziness, headache, vision changes, lethargy In case of emergency call 911 Prescriptions: New colchicine 0.6 mg capsule 0.6 mg PO DAILY Qty: 14 0RF acetaminophen [Tylenol] 325 mg capsule 650 mg PO Q6H PRN (Reason: pain) Qty: 30 0RF No Action colchicine 0.6 mg tablet 0.6 mg PO BID Qty: 180 0RF gabapentin 300 mg capsule 300 mg PO BID 30 Days Qty: 60 0RF meclizine 25 mg tablet 25 mg PO DAILY PRN (Reason: Insomnia) 30 Days Qty: 30 0RF fluticasone propionate 50 mcg/actuation spray,suspension 2 spray intranasal BID cetirizine 10 mg tablet 10 mg PO DAILY ondansetron 4 mg tablet,disintegrating 4 mg PO DAILY PRN (Reason: nausea and vomiting) 5 Days Qty: 10 0RF hydroxychloroquine 200 mg tablet 200 mg PO DAILY levothyroxine 100 mcg tablet 100 mcg PO DAILY 90 Days Qty: 90 0RF gabapentin 100 mg capsule 100 mg PO DAILY Qty: 90 0RF sennosides-docusate sodium [Senokot-S] 8.6-50 mg tablet 1 tab-cap PO BEDTIME 90 Days Qty: 90 0RF Probiotic Gold Acidophilus 1 billion cell capsule 1,000 mmu cells PO DAILY Qty: 90 0RF acetaminophen [Tylenol Extra Strength] 500 mg tablet 500 mg PO Q6H PRN (Reason: fever or pain) Qty: 30 0RF losartan 50 mg tablet 50 mg PO BID docusate sodium [Colace] 100 mg capsule 200 mg PO BEDTIME Qty: 60 5RF omeprazole 20 mg capsule,delayed release(DR/EC) 40 mg PO DAILY 30 Days Qty: 60 5RF pyridoxine (vitamin B6) 100 mg tablet 100 mg PO DAILY 90 Days Qty: 90 1RF Referrals: [facility] [Provider Group] - 2 days Bryant Alejandra MD [Primary Care Provider] - 2 days Stand Alone Forms: Work/School Release Print Language: Hebrew
[2023-08-28 08:30] LABS: Influenza A PCR NEGATIVE (Negative); Influenza B PCR NEGATIVE (Negative); Resp Syncy Virus RNA Qual PCR NEGATIVE (Negative); SARS COV2 PCR INHOUSE NEGATIVE (Negative)
[2023-08-28 08:33] LABS: Troponin-I High Sensitivity 28.4 ng/L (<3.5-17.0)
[2023-08-28] MEDS: Ketorolac Tromethamine 30 MG/ML VIAL IM (09:01)
[2023-08-28 09:07] VITALS: BP 132/66; PULSE 75; RESP 12; O2SAT 100
[2023-08-28 09:39] VITALS: BP 132/66; PULSE 75; RESP 16; TEMP 36.8; O2SAT 100
== END 2023-08-28 09:40 | disposition home or self-care (01) ==
PROVIDERS: Physician Assistant; Emergency Provider Emergency Medicine; PCP Internal Medicine
DX: M32.12 Pericarditis in systemic lupus erythematosus (principal); R07.9 Chest pain, unspecified; I45.10 Unspecified right bundle-branch block; Z03.818 Encounter for observation for suspected exposure to other biological agents ruled out; I10 Essential (primary) hypertension; Z79.899 Other long term (current) drug therapy
CPT/HCPCS: 0241U; 36415; 71045; 80053; 84484; 85025; 93005; 96372; 96374; 99284; 99285; J1885

== ENCOUNTER → 2023-08-28 02:56 | Outpatient (BNV) | payer BC, SELFPAY | PROVIDERS: Emergency Provider Emergency Medicine; PCP Internal Medicine; Visit Provider Internal Medicine Cardiovascular Disease | DX: R94.31 Abnormal electrocardiogram [ECG] [EKG] (principal) | CPT/HCPCS: 93010 ==

== ENCOUNTER 2023-09-03 09:47 | Outpatient (AMB) | payer BC, SELFPAY ==
[2023-09-03 09:49] VITALS: BP 112/76; PULSE 82; O2SAT 100; BMI 28.9
--- NOTE | 2023-09-03 09:49 | A.OFFPC_ITS ---
Vital Signs 09/03/23 09:49 Height 5 ft Weight 148 lb 4 oz BMI 28.9 BP 112/76 Blood Pressure Location Rt brachial Position Sitting Pulse 82 Pulse Source Pulse Oximeter Pulse Oximetry (%) 100 Oxygen Delivery Method Room Air Intake Visit Reasons: 3 month f/U medication refill/pain management Allergies aspirin Allergy (Unknown, Verified 09/03/23 09:53) vomiting, GI upset Medication List - Last Reconciled 09/03/23 by Bryant Alejandra MD acetaminophen (Tylenol) 650 mg (2 x 325 mg) PO Q6H PRN acetaminophen (Tylenol Extra Strength) 500 mg PO Q6H PRN cetirizine 10 mg PO DAILY colchicine 0.6 mg PO DAILY fluticasone propionate 50 mcg/actuation 2 sprays intranasal BID gabapentin 300 mg PO BID 30 days gabapentin 100 mg PO DAILY hydroxychloroquine 200 mg PO DAILY Lactobacillus acidophilus (Probiotic Gold Acidophilus) 1,000 mmu cells PO DAILY levothyroxine 100 mcg PO DAILY 90 days losartan 50 mg PO BID meclizine 25 mg PO DAILY PRN 30 days omeprazole 40 mg (2 x 20 mg) PO DAILY 30 days ondansetron 4 mg PO DAILY PRN 5 days pyridoxine (vitamin B6) 100 mg PO DAILY 90 days sennosides-docusate sodium 8.6-50 mg (Senokot-S) 1 tab-cap PO BEDTIME 90 days Tobacco use date assessed: 09/03/23 Dental Screening Dental Screen Date: 09/03/23 Did you have a dental visit in the last 12 months?: Yes Did you have a dental problem in the last 6 months where you did not have access to dental care?: No Was dental information given to patient?: Patient has dentist HPI 3 month f/U medication refill/pain management HPI Details Patient was in emergency room as she developed pericarditis again Has appointment coming up with office machine servicer, colchicine is no longer working well She continued to have chest pains For her other aches and pains she is taking gabapentin 300 mg at night And 100 in the morning which is helping her She was supposed to have thyroid test done before this visit Order placed patient notified Meanwhile continue with the same dose of levothyroxine 100 mcg Follow-up 4 months [facility] Medical History Joint pain in fingers of right hand Myositis Hypothyroid SLE (systemic lupus erythematosus) Pericardial effusion UTI (urinary tract infection) Kidney stones Dysplasia of cervix, low grade (BERNADETTE 1) 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 Mother No problems noted. 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 1. Little interest or pleasure in doing things: several days 2. Feeling down, depressed, or hopeless: not at all 3. Trouble falling or staying asleep, or sleeping too much: more than half the days 4. Feeling tired or having little energy: more than half the days 5. Poor appetite or overeating: several days 6. Feeling bad about yourself - or that you are a failure or have let yourself or your family down: not at all 7. Trouble concentrating on things, such as reading the newspaper or watching television: not at all 8. Moving or speaking so slowly that other people could have noticed. Or the opposite - being so fidgety or restless that you have been moving around a lot more than usual: several days 9. Thoughts that you would be better off or of hurting yourself in some way: not at all Total score: 7 Depression Screening Interpretation: Negative Depression Screening Done: Yes 54035 - PHQ-9 Billing: Yes Source: Developed by Drs. Gary Winters, Juany Larsen, John Paul Godoy and colleagues, with an educational matt from [employer]. Thrive Questionnaire Date Thrive assessed: 09/03/23 I am a: Patient What is your living situation today?: I have a steady place to live Within the past 12 months, did the food you bought not last and you didn't have the money to get more?: Never true Within the past 12 months, did you worry whether your food would run out before you got money to buy more?: Never true Do you have trouble paying for medicines?: No Do you have trouble getting transportation to medical appointments?: No Do you have trouble paying your heating and electricity bill?: No Do you have trouble taking care of your child, family member or friend?: No Do you have trouble with day-to-day activities such as bathing, preparing meals, shopping, managing finances, etc.?: No Are you currently unemployed and looking for a job?: No Are you interested in more education?: No Please select the resources that you would like help with: None Currently or been in a relationship where the following occur: No concerns r eported THRIVE Score: 0 AUDIT C Alcohol Use Questionnaire (AUDIT-C) 1. How often do you have a drink containing alcohol?: Never 3. How often do you have six or more drinks on one occasion?: Never Total Score: 0 Score Reviewed/Action Taken: Yes SILVANA-7 AMB Questionnaire SILVANA-7 Date SILVANA - 7 assessed: 09/03/23 Feeling nervous, anxious, or on edge: 1 = Several days Not being able to stop or control worryin = Not at all Worrying too much about different things: 0 = Not at all Trouble relaxin = Not at all Being so restless that it is hard to sit still: 0 = Not at all Becoming easily annoyed or irritable: 0 = Not at all Feeling afraid as if something awful might happen: 0 = Not at all Total SILVANA-7 score (0-4 normal; 5-9 mild; 10-14 moderate; 15-21 severe): 1 Source: Developed by Juany Perez, John Paul Godoy and colleagues, with an educational matt from [employer]. SILVANA-7 Assessment Billing SILVANA-7 Assessment Tool: SILVANA-7 Assessment 88017 Review of Systems Const Denies chills and Denies fever(s) ENT Denies epistaxis and Denies nasal discharge Resp Denies chest congestion, Denies cough and Denies hemoptysis GI Denies diarrhea and Denies nausea Skin/Breast Denies rash Neuro Reports no additional complaints Psych Reports no additional complaints Endo Reports no additional complaints Physical exam (Primary Care) Vital Signs: Last Vital Signs Pulse 82 09/03/23 09:49 BP 112/76 09/03/23 09:49 Pulse Ox 100 09/03/23 09:49 Oxygen Delivery Method Room Air 09/03/23 09:49 BMI result Body Mass Index 28.9 Tobacco/Smoking Status: Tobacco use Status Tobacco use date assessed 09/03/23 09/03/23 09:54 Patient Tobacco Use Status Former Tobacco user 09/03/23 09:54 Tobacco use type Cigarette 09/03/23 09:54 e-Cigarette/Vaping Use Currently Using 09/03/23 09:54 PHQ-9: PHQ-9 Score PHQ-9: Total score 7 09/03/23 10:03 Depression Screening Interpretation: Negative Thrive Assessment: Date of Thrive Assessment Date Thrive assessed 09/03/23 09/03/23 09:54 Currently or been in a relationship where the following occur: No concerns reported Const General: cooperative, comfortable and no acute distress Orientation/consciousness: patient oriented x3 HENMT Head: Yes normocephalic Eyes General: appearance normal, both eyes and all related structures Neck Neck: Yes supple Resp Effort & Inspection: normal respiratory effort, no cough and no stridor Cardio Rhythm: regular rhythm Heart sounds: S1 normal heart sound present and S2 normal heart sound present Skin General skin exam: turgor normal Neuro General: patient oriented x3, tone normal and moves all extremities Extrem Right lower extremity: no edema Left lower extremity: no edema Assessment and Plan Assessment & Plan (1) Other specified hypothyroidism: Code(s): E03.8 - Other specified hypothyroidism (2) Fibromyalgia: Code(s): M79.7 - Fibromyalgia (3) Chronic pain: Code(s): G89.29 - Other chronic pain Qualifiers: Chronic pain type: chronic pain syndrome Qualified Code(s): G89.4 - Chronic pain syndrome (4) SLE (systemic lupus erythematosus): Comment: dx in her teens (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, most recent kidney biopsy in 2001 with no active features of lupus nephritis with ongoing proteinuria, body aches, pericarditis with effusion that required pericardial window, abnormal nailfold capillaroscopy +++SSa) HCQ Code(s): M32.9 - Systemic lupus erythematosus, unspecified Qualifiers: Systemic lupus erythematosus organ involvement: pericarditis Systemic lupus erythematosus type: other Qualified Code(s): M32.12 - Pericarditis in sys temic lupus erythematosus (5) Pericarditis associated with systemic lupus erythematosus: Code(s): I31.9 - Disease of pericardium, unspecified; M32.12 - Pericarditis in systemic lupus erythematosus Qualifiers: Chronic pericarditis complication: unspecified complication status Chronicity: chronic Qualified Code(s): M32.12 - Pericarditis in systemic lupus erythematosus (6) Hypothyroid: Code(s): E03.9 - Hypothyroidism, unspecified Qualifiers: Hypothyroidism type: unspecified Qualified Code(s): E03.9 - Hypothyroidism, unspecified Plan Patient was in emergency room as she developed pericarditis again Has appointment coming up with office machine servicer, colchicine is no longer working well She continued to have chest pains For her other aches and pains she is taking gabapentin 300 mg at night And 100 in the morning which is helping her She was supposed to have thyroid test done before this visit Order placed patient notified Meanwhile continue with the same dose of levothyroxine 100 mcg Follow-up 4 months Orders: Orders TSH reflex Free T4 Today E03.8 - Other specified hypothyroidism Coding Level of Care Code Est Pt Level 4 (62863) Diagnoses Other specified hypothyroidism E03.8 Fibromyalgia M79.7 Chronic pain syndrome G89.4 Chronic pain type: chronic pain syndrome Other systemic lupus erythematosus with pericarditis M32.12 Systemic lupus erythematosus organ involvement: pericarditis Systemic lupus erythematosus type: other Chronic pericarditis associated with systemic lupus erythematosus (SLE), unspecified complication status M32.12 Chronic pericarditis complication: unspecified complication status Chronicity: chronic Hypothyroidism, unspecified type E03.9 Hypothyroidism type: unspecified Additional Codes SILVANA-7 Assessment Billing - SILVANA-7 Assessment Tool: SILVANA-7 Assessment [id number] ([id number])
== END 2023-09-03 10:19 | disposition home or self-care (01) ==
PROVIDERS: PCP Internal Medicine; Visit Provider Internal Medicine
DX: E03.8 Other specified hypothyroidism (principal); M79.7 Fibromyalgia; G89.4 Chronic pain syndrome; M32.12 Pericarditis in systemic lupus erythematosus; E03.9 Hypothyroidism, unspecified
CPT/HCPCS: 99214

== ENCOUNTER 2023-09-06 10:05 | Outpatient (REF) | payer BC, SELFPAY ==
[2023-09-06 10:20] LABS: MANUAL DIFF FLAG NO
[2023-09-06 10:45] LABS: Basophils Percent Auto 0.6 % (0-2); Eosinophils Absolute Auto 0.1 X10*3/uL (0.0-0.4); Eosinophils Percent Auto 1.3 % (0-4); Hematocrit 39.4 % (37.0-47.0); Hemoglobin 13.4 g/dl (12.0-16.0); Imm Gran Abs Auto 0.02 X10*3/uL (0.00-0.03); Imm Gran Pct Auto 0.4 % (0.0-0.4); Lymphocytes Absolute Auto 1.7 X10*3/uL (1.2-4.9); Lymphocytes Percent Auto 31.4 % (20-40); Mean Corpuscular Hemoglobin 30.3 pg (27.0-33.0); Mean Corpuscular Volume 89.1 fL (80.0-98.0); Mean Platelet Volume 11.2 fL (9.4-12.3); Monocytes Absolute Auto 0.3 X10*3/uL (0.1-1.2); Monocytes Percent Auto 5.5 % (2-11); Neutrophils Absolute Auto 3.2 x10*3/uL (2.0-8.3); Neutrophils Percent Auto 60.8 % (45-73); Platelet Count 196 X10*3/uL (160-400); Red Blood Count 4.42 X10*6/uL (4.20-5.50); White Blood Count 5.3 X10*3/uL (4.8-10.8)
[2023-09-06 11:12] LABS: Troponin-I High Sensitivity 32.7 ng/L (<3.5-17.0)
[2023-09-06 11:16] LABS: Alanine Aminotransferase 12 U/L (0-31); Albumin Level 3.9 g/dL (3.5-5.0); Alkaline Phosphatase 62 U/L (39-117); Anion Gap 11 (12-20); Aspartate Amino Transferase 17 U/L (5-31); Bilirubin Total 0.4 mg/dL (0.0-1.0); Blood Urea Nitrogen 17 mg/dL (9-16); Calcium 9.9 mg/dL (8.4-10.2); Carbon Dioxide 25 mmol/L (22-29); Chloride 109 mmol/L (96-108); Estimated Glomerular Filt Rate > 60; Glucose Random 60 mg/dL (60-115); Potassium 3.8 mmol/L (3.3-5.1); Sodium 141 mmol/L (135-145); Total Protein 7.1 g/dL (6.5-8.0)
[2023-09-06 11:35] LABS: Erythrocyte Sedimentation Rate 6 MM/HR (0-20)
[2023-09-06 11:36] LABS: TSH reflex Free T4 2.06 uIU/mL (0.32-4.0)
[2023-09-06 11:49] LABS: Appearance Urine Clear; Color Urine Yellow; Glucose Urine UA Negative (Negative); Leukocyte Esterase Urine Negative (Negative); Nitrite Urine Negative (Negative); PH 5.5 (5.0-9.0); UMIC TRIGGER UA YES; Urine Blood Negative (Negative); Urine Ketones Negative (Negative); Urine Protein 100 (2+) mg/dL (Neg-Trace)
[2023-09-06 11:52] LABS: Bacteria Urine None Seen (None Seen); Hyaline Casts Urine 0-2 /LPF (0-2); RBC Urine 0-2 /HPF (0-2); Squamous Epithelial Cell Urine 0-2 /HPF (0-2); WBC Urine 0-5 /HPF (0-5)
[2023-09-06 12:06] LABS: Creatinine Urine 163.86 mg/dL; Protein/Creatinine Ratio, Ur 0.63 (<0.2); Total Protein Urine Random 104 mg/dL (<12)
[2023-09-07 13:48] LABS: Complement C3 142 mg/dL (83-193)
[2023-09-07 21:48] LABS: Anti DNA DS Antibody <1 IU/mL
== END 2023-09-06 10:06 | disposition home or self-care (01) ==
LOC: HO.LAB 10:05
PROVIDERS: Student in an Organized Health Care Education/Training Program; Absent Provider Urology; PCP Internal Medicine; Visit Provider Internal Medicine
DX: E03.9 Hypothyroidism, unspecified (principal); M32.9 Systemic lupus erythematosus, unspecified; Z86.79 Personal history of other diseases of the circulatory system
CPT/HCPCS: 36415; 80053; 81001; 82570; 84156; 84443; 84484; 85025; 85652; 86140; 86160; 86225

== ENCOUNTER 2023-09-27 09:19 | Outpatient (REF) | payer BC, SELFPAY ==
--- NOTE | ~2023-09-27 | US_ITS ---
EXAMINATION: US RETROPERITONEAL COMPLETE (RENAL) CLINICAL INFORMATION: Abdominal pain. Renal cyst.. COMPARISON: Renal ultrasound July 19, 2023 TECHNIQUE: Real-time imaging of the kidneys and bladder. FINDINGS: RIGHT KIDNEY: 11.1 x 5.2 x 6.2 cm (SAG x AP x TRV). The kidney demonstrates mildly increased echogenicity diffusely. Renal cortex is mildly thinned diffusely. No calculi or focal parenchymal lesions. No hydronephrosis. LEFT KIDNEY: 12.9 x 5.0 x 5.6 cm (SAG x AP x TRV). There is mildly increased echogenicity of the left kidney. Renal cortical thickness is normal. 5 mm nonobstructing lower pole calculus. There is no hydronephrosis. Relatively simple appearing 3.1 cm lower pole cyst is again noted which is stable. A smaller 1.9 cm midpole cyst is also noted. US/US renal BI IMPRESSION: 1. Mildly increased echogenicity of both kidneys. Also noted is mild thinning of the right renal cortex. Medical renal disease is within the differential. 2. 5 mm nonobstructing left renal calculus. No right-sided renal calculi. No hydronephrosis. 3. Left renal cyst. Electronically signed by: Wesley Guerrero MD 10/14/2023 07:10 AM EDT
== END 2023-09-27 09:20 | disposition home or self-care (01) ==
LOC: HO.US 09:19
PROVIDERS: PCP Internal Medicine; Visit Provider Nurse Practitioner Family
DX: R10.9 Unspecified abdominal pain (principal); N28.1 Cyst of kidney, acquired
CPT/HCPCS: 76775

== ENCOUNTER 2023-10-11 08:46 | Outpatient (REF) | payer BC, SELFPAY ==
--- NOTE | ~2023-10-11 | MM_ITS ---
EXAMINATION: MM SCREENING DIGITAL BREAST TOMOSYNTHESIS, BILATERAL CLINICAL INFORMATION: Screening. Asymptomatic. COMPARISON: Mammography: This study is compared with prior exams dating back to 2019. TECHNIQUE: Digital breast tomosynthesis is performed in both the craniocaudal and mediolateral oblique views along with computer-aided detection (CAD). Synthesized 2D images are generated from the tomosynthesis. FINDINGS: The breasts are heterogeneously dense, which may obscure small masses (ACR BI-RADS breast composition Category c). There are no significant masses, abnormal calcifications, or other abnormalities. MM/MM tomosynthesis screening BI IMPRESSION: No mammographic evidence of malignancy. ASSESSMENT: BI-RADS BI-RADS 1 - Negative RECOMMENDATION: Routine annual mammography screening. 1 year F/U This examination should not preclude the clinical evaluation of a suspicious palpable abnormality. This patient's information was entered into a reminder system with a target due date for their next mammogram. Electronically signed by: Suzanne Roque MD 11/04/2023 10:30 PM EDT
== END 2023-10-11 08:47 | disposition home or self-care (01) ==
LOC: HO.MAMMO 08:46
PROVIDERS: PCP Internal Medicine; Visit Provider Internal Medicine
DX: Z12.31 Encounter for screening mammogram for malignant neoplasm of breast (principal)
CPT/HCPCS: 77063; 77067

== ENCOUNTER → 2023-10-11 09:00 | Outpatient (BNV) | payer BC, SELFPAY | PROVIDERS: PCP Internal Medicine; Visit Provider Radiology Diagnostic Radiology | DX: Z12.31 Encounter for screening mammogram for malignant neoplasm of breast (principal) | CPT/HCPCS: 77063; 77067 ==

== ENCOUNTER 2023-10-11 13:37 | Outpatient (AMB) | payer BC, SELFPAY ==
--- NOTE | 2023-10-11 13:41 | A.OFFVIS_ITS ---
Vital Signs 10/11/23 13:44 Height 5 ft 11 in Weight 148 lb BMI 20.6 BP 118/68 Blood Pressure Location Lt brachial Position Sitting Pulse 80 Pulse Source Pulse Oximeter Intake Visit Reasons: 1 yr f/up Allergies aspirin Allergy (Unknown, Verified 09/03/23 09:53) vomiting, GI upset Medication List - Last Reconciled 10/11/23 by Jose Morataya MD acetaminophen (Tylenol) 650 mg (2 x 325 mg) PO Q6H PRN acetaminophen (Tylenol Extra Strength) 500 mg PO Q6H PRN cetirizine 10 mg PO DAILY colchicine 0.6 mg PO DAILY fluticasone propionate 50 mcg/actuation 2 sprays intranasal BID gabapentin 300 mg PO BID 30 days gabapentin 100 mg PO DAILY hydroxychloroquine 200 mg PO DAILY Lactobacillus acidophilus (Probiotic Gold Acidophilus) 1,000 mmu cells PO DAILY levothyroxine 100 mcg PO DAILY 90 days losartan 50 mg PO BID meclizine 25 mg PO DAILY PRN 30 days omeprazole 40 mg (2 x 20 mg) PO DAILY 30 days ondansetron 4 mg PO DAILY PRN 5 days pyridoxine (vitamin B6) 100 mg PO DAILY 90 days sennosides-docusate sodium 8.6-50 mg (Senokot-S) 1 tab-cap PO BEDTIME 90 days HPI Comments Details: Nery comes for follow-up. She was recently in the hospital in August again with chest pain. She had minimally elevated troponin but flat. She was again diagnose pericarditis given a prescription Tylenol. Patient has no recurrent chest pain at this point time but has diffuse muscle aches. Also has neuropathic sounding chest pain and joint pains. Takes all medications including colchicine hydroxychloroquine. No exertional chest pain. No heart failure symptoms. Takes all her medications including losartan. No symptoms of palpitation. 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 Mother No problems noted. 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 Cognitive needs: No Hearing needs: No Vision needs: Yes Female Reproductive History Menstrual Age of Menarche: 10 Review of Systems Const Denies weakness ENT Denies dizziness Card Denies chest pain, Denies chest pain with activity, Denies syncope, Denies rapid heart rate, Denies pedal edema, Denies edema, Denies leg edema, Denies lightheadedness, Denies palpitations, Denies dyspnea, Denies dyspnea on exertion and Denies orthopnea Resp Denies cough, Denies dyspnea and Denies dyspnea on exertion GI Denies hematochezia and Denies change in stool character Musc Denies abnormal gait, Denies muscle cramps, Denies muscle weakness, Denies numbness, Denies radiating pain into limb and Denies tingling Neuro Denies abnormal gait, Denies dizziness, Denies syncope, Denies numbness, Denies tingling and Denies weakness Endo Denies palpitations Physical Exam Vital Signs: Last Vital Signs Pulse 80 10/11/23 13:44 BP 118/68 10/11/23 13:44 BMI result Body Mass Index 20.6 Const General: cooperative, comfortable, no acute distress, alert and awake Nutritional Appearance: overweight Orientation/consciousness: patient oriented x3 Limitations: no limitations Neck Neck: Yes trachea midline, Yes supple and Yes no JVD Resp Effort & Inspection: normal respiratory effort Auscultation: clear to auscultation bilaterally Cardio Jugular venous distension: no JVD Palpation: normal PMI Rate: regular rate Rhythm: regular rhythm Heart sounds: S1 normal heart sound present and S2 normal heart sound present GI Auscultation: normal bowel sounds Skin General skin exam: no rashes or lesions noted Neuro General: patient oriented x3 and no focal motor deficits Extrem General: Yes no clubbing, cyanosis or edema Psych Appearance: grossly normal Assessment & Plan Assessment & Plan (1) Cardiomyopathy: Code(s): I42.9 - Cardiomyopathy, unspecified Category: Medical Qualifiers: Cardiomyopathy type: unspecified Qualified Code(s): I42.9 - Cardiomyopathy, unspecified Plan: Prior history of cardiomyopathy related to lupus. LV systolic function is normalized on losartan therapy with neurohormonal modulation. No signs or symptoms of heart failure. Continue losartan therapy. Importance medical therapy was discussed. Follow-up echocardiogram next year. Avoidance of c ardiotoxic agent was discussed. Continue to manage SLE aggressively. (2) Pericarditis associated with systemic lupus erythematosus: Code(s): I31.9 - Disease of pericardium, unspecified; M32.12 - Pericarditis in systemic lupus erythematosus Category: Medical Qualifiers: Chronicity: chronic Chronic pericarditis complication: unspecified complication status Qualified Code(s): M32.12 - Pericarditis in systemic lupus erythematosus Plan: Prior history of pericarditis with recurrent symptoms although most recent symptoms inflammatory markers were within normal limits. She had elevated troponins with flat troponins Mibi low-grade myocardial inflammation. Continue colchicine therapy. She does have noncardiac chest pain as well as some of the chest pain syndrome appears to be probably related to fibromyalgia/musculoskeletal chest pain. There is no evidence of myocardial ischemia. Continue colchicine therapy. Consider switching SLE therapy to an additional agent. 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 Will follow up in the clinic in 1 year's time, sooner p.r.n.. Thank you for allowing me to partake in her care Orders: Orders CA echo transthoracic complete 1 Year I42.9 - Cardiomyopathy, unspecified Coding Level of Care Code Est Pt Level 4 (45192) Diagnoses Cardiomyopathy, unspecified type I42.9 Cardiomyopathy type: unspecified Chronic pericarditis associated with systemic lupus erythematosus (SLE), unspecified complication status M32.12 Chronicity: chronic Chronic pericarditis complication: unspecified complication status
[2023-10-11 13:44] VITALS: BP 118/68; PULSE 80; BMI 20.6
== END 2023-10-11 14:04 | disposition home or self-care (01) ==
PROVIDERS: PCP Internal Medicine; Visit Provider Internal Medicine Cardiovascular Disease
DX: I42.9 Cardiomyopathy, unspecified (principal); M32.12 Pericarditis in systemic lupus erythematosus
CPT/HCPCS: 99214

== ENCOUNTER 2023-10-21 13:36 | Outpatient (AMB) | payer BC, SELFPAY ==
--- NOTE | 2023-10-21 14:03 | MHC.OFFVIS ---
Intake Visit Reasons: 3m/US(set) Intake Note: Patient is Present for follow up on: kidney stone, renal cyst, and ultrasound results Imaging Completed: 09/27/23 Urology Medication: Vitamin B6 Antibiotic Allergies: None Blood Thinners:None Clear Coat Sprayer Required: No Allergies aspirin Allergy (Unknown, Verified 10/21/23 18:40) vomiting, GI upset Medication List - Last Reconciled 10/21/23 by KATELYNN Cantu-ROSANGELA acetaminophen (Tylenol) 650 mg (2 x 325 mg) PO Q6H PRN acetaminophen (Tylenol Extra Strength) 500 mg PO Q6H PRN cetirizine 10 mg PO DAILY colchicine 0.6 mg PO DAILY fluticasone propionate 50 mcg/actuation 2 sprays intranasal BID gabapentin 300 mg PO BID 30 days gabapentin 100 mg PO DAILY hydroxychloroquine 200 mg PO DAILY Lactobacillus acidophilus (Probiotic Gold Acidophilus) 1,000 mmu cells PO DAILY levothyroxine 100 mcg PO DAILY 90 days losartan 50 mg PO BID meclizine 25 mg PO DAILY PRN 30 days omeprazole 40 mg (2 x 20 mg) PO DAILY 30 days ondansetron 4 mg PO DAILY PRN 5 days pyridoxine (vitamin B6) 100 mg PO DAILY 90 days sennosides-docusate sodium 8.6-50 mg (Senokot-S) 1 tab-cap PO BEDTIME 90 days HPI Comments Details: Nery is a very pleasant 47-year-old female patient of Dr. Alejandra. She has a past medical history of myositis, hypothyroidism, systemic lupus erythmatosus, urinary tract infection, nephrolithiasis, lupus nephritis, pericarditis associated with systemic lupus, and hypertension. She presents to the office today for a follow up of her nephrolithiasis and complex renal cysts. Recent renal imaging results reviewed with the patient today 10/08 right kidney with no lesions, calculi, or hydronephrosis. Left kidney with 5 mm nonobstructing lower pole calculus. There is no hydronephrosis. 3.1 cm lower pole cyst is again noted which is stable per radiology report. In discussion with the patient today she continues to report right-sided flank pain and foul-smelling urine. However urinalysis negative for leukocytes, nitrates, and or microscopic hematuria. 2+ proteinuria however this is patient's baseline given her history of lupus nephritis. PH 6.0. We did discuss importance of adequate hydration relation to nephrolithiasis as well as overall health and well-being. She reports noting right-sided flank pain subsides with warm showers. We discussed at length potential causes of these symptoms. Will send urine today for urine culture. She otherwise denies urinary urgency, urinary frequency, incontinence, nocturia, hematuria, dysuria, changes to urinary stream, fever, and or chills. She is happy with her current voiding parameters. When asked she reports compliance with vitamin B6 as prescribed.She otherwise offers no other issues or concerns at this time. Nephrolithiasis Recurrent nephrolithiasis 08/05 presented to emergency department with right-sided flank pain Imaging - 07/05 CT scan left 2.4 cm renal cysts, 6 mm distal right ureteric stone with mild hydroureteronephrosis, 6 mm right renal stone - 09/04 renal ultrasound 6 mm stone in renal pelvis - 09/06 renal ultrasound no stone right, left side complex renal cyst -04/10 CT Urogram no stone on the right, left side complex renal cysts with 5 mm stone left lower pole. -08/08 renal ultrasound 3.3 cm left lower pole renal cysts with septations. 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 Mother No problems noted. 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 Cognitive needs: No Hearing needs: No Vision needs: Yes Female Reproductive History Menstrual Age of Menarche: 10 Review of Systems Const Reports as per HPI Eyes Reports no additional complaints ENT Reports no additional complaints Card Reports no additional complaints Resp Reports no additional complaints GI Reports no additional complaints Reports as per HPI Musc Reports no additional complaints Neuro Reports no additional complaints Psych Reports no additional complaints Endo Reports no additional complaints Physical Exam Const General: cooperative, healthy appearing, comfortable, no acute distress, well developed, alert and awake Orientation/consciousness: patient oriented x3 Limitations: no limitations HEENT Head: Yes normal to inspection, Yes normocephalic and Yes atraumatic Ears: hearing grossly normal bilaterally Eyes General: appearance normal, both eyes and all related structures Neck Neck: Yes normal visual inspection and Yes trachea midline Chest Chest palpation & inspection: normal inspection of the chest Resp Effort & Inspection: normal respiratory effort and able to speak in complete sentences Cardio Rate: regular rate GI Inspection: Yes normal to inspection General: Yes no CVA tenderness Back/Spine/Pelvis Back: no CVA tenderness Skin General skin exam: no rashes or lesions noted Neuro General: patient oriented x3 Extrem General: Yes normal to inspection Psych Appearance: grossly normal and well kempt Mental Status: mental status grossly normal Speech and movement: Normal speech and movement present and Clear speech present Affect: normal affect Attitude: cooperative Thought process: Normal thought process present Thought content: Normal thought content present Insight: Fair insight present (Psych) Judgement: Fair judgement present (Psych) Results AMB Urinalysis, Automated UA Leukoctes 0 Deshaun/uL Last Edit by [employer] on 10/21/23 14:19 UA Nitrite Last Edit by [employer] on 10/21/23 14:19 UA Urobilinogen 0.2 mg/dL Last Edit by [employer] on 10/21/23 14:19 UA Protein 100 mg/dL Last Edit by [employer] on 10/21/23 14:19 UA pH 6.0 Last Edit by [employer] on 10/21/23 14:19 UA Blood 0 Partha/uL Last Edit by Eddi [employer] on 10/21/23 14:19 UA Specific Glen 1.030 Last Edit by Eddi Rodriguez on 10/21/23 14:19 UA Ketone Last Edit by [employer]i [employer] on 10/21/23 14:19 UA Bilirubin 0 mg/dL Last Edit by Eddi [employer] on 10/21/23 14:19 UA Glucose 0 mg/dL Last Edit by Eddi Rodriguez on 10/21/23 14:19 Results Reviewed Results Reviewed: Laboratory Last Values Urine pH (Auto) 6.0 10/21/23 14:08 Specific Glen (Auto) 1.030 10/21/23 14:08 Urine Protein (Auto) 100 mg/dL 10/21/23 14:08 Glucose (UA)(Auto) 0 mg/dL 10/21/23 14:08 Urine Blood (Auto) 0 Partha/uL 10/21/23 14:08 Urine Bilirubin (Auto) 0 mg/dL 10/21/23 14:08 Urine Urobilinogen (Auto) 0.2 mg/dL 10/21/23 14:08 Leukocyte Esterase (Auto) 0 Deshaun/uL 10/21/23 14:08 Date of Service: 09/27/23 EXAMINATION: US RETROPERITONEAL COMPLETE (RENAL) FINDINGS: RIGHT KIDNEY: 11.1 x 5.2 x 6.2 cm (SAG x AP x TRV). The kidney demonstrates mildly increased echogenicity diffusely. Renal cortex is mildly thinned diffusely. No calculi or focal parenchymal lesions. No hydronephrosis. LEFT KIDNEY: 12.9 x 5.0 x 5.6 cm (SAG x AP x TRV). There is mildly increased echogenicity of the left kidney. Renal cortical thickness is normal. 5 mm nonobstructing lower pole calculus. There is no hydronephrosis. Relatively simple appearing 3.1 cm lower pole cyst is again noted which is stable. A smaller 1.9 cm midpole cyst is also noted. IMPRESSION: 1. Mildly increased echogenicity of both kidneys. Also noted is mild thinning of the right renal cortex. Medical renal disease is within the differential. 2. 5 mm nonobstructing left renal calculus. No right-sided renal calculi. No hydronephrosis. 3. Left renal cyst. Assessment & Plan Assessment & Plan (1) Right flank pain: Code(s): R10.9 - Unspecified abdominal pain Category: Medical (2) Renal calculi: Code(s): N20.0 - Calculus of kidney Category: Medical (3) Foul smelling urine: Code(s): R82.90 - Unspecified abnormal findings in urine Category: Medical Plan In office urinalysis results reviewed with the patient today; as noted above; will send for urine culture. Recent renal imaging results reviewed with the patient today; as noted above. Discussed and stressed the importance of increase in hydration related to nephrolithiasis as well as foul-smelling urine. Discussed possible near future microgen if symptoms persist. Continue to follow-up with Nephrology for proteinuria. Discussed seeking emergency room care for worsening symptoms. Follow-up in 3 months; or sooner with any issues, concerns, and or questions. Orders: Orders AMB Urinalysis Automated Today Z13.9 - Encounter for screening, unspecified Patient Instructions: The patient had an opportunity to ask questions regarding the treatment plan. All questions were answered. Physical exam, labs, and imaging were discussed and reviewed in detail. As well as risks, benefits, and discussion of treatment choices. No major barriers to understanding were identified. The patient expressed understanding and agreement with the above treatment plan. The patient was made aware they should contact our office by phone for worsening of their current condition, the appearance of new symptoms, or with any questions or concerns. Compliance is encouraged with any medications and follow up testing that is ordered. It is a privilege to be allowed the opportunity to participate in? your urological care.? Again, if you have any questions or concerns If you have any questions or concerns please do not hesitate to contact me. The office is [phone]. This note is constructed using voice recognition software. While every effort has been made to ensure accuracy pipe insulator errors may have been included. Yours sincerely, ELIAZAR Cantu Coding Level of Care Code Est Pt Level 3 (16066) Complex EM visit Add On G2211 Diagnoses Right flank pain R10.9 Renal calculi N20.0 Foul smelling urine R82.90
== END 2023-10-21 14:32 | disposition home or self-care (01) ==
PROVIDERS: PCP Internal Medicine; Visit Provider Nurse Practitioner Family
DX: R10.9 Unspecified abdominal pain (principal); N20.0 Calculus of kidney; R82.90 Unspecified abnormal findings in urine; Z13.9 Encounter for screening, unspecified
CPT/HCPCS: 99213

== ENCOUNTER → 2023-10-21 13:36 | Outpatient (BNVA) | payer BC, SELFPAY | PROVIDERS: PCP Internal Medicine; Visit Provider Nurse Practitioner Family | DX: N20.0 Calculus of kidney (principal); R82.90 Unspecified abnormal findings in urine | CPT/HCPCS: 81003 ==

== ENCOUNTER 2023-12-02 00:54 | Emergency (ER) | payer BC, SELFPAY ==
--- NOTE | 2023-12-02 | ECG_ITS ---
Test Reason : WEAKNESS Blood Pressure : / mmHG Vent. Rate : 086 BPM Atrial Rate : 086 BPM P-R Int : 146 ms QRS Dur : 118 ms QT Int : 378 ms P-R-T Axes : 046 -17 017 degrees QTc Int : 452 ms Normal sinus rhythm Incomplete right bundle branch block Borderline ECG When compared with ECG of 28-AUG-2023 02:56, No significant change was found Referred By: Generic ED Physician Electronically Signed By:SHANDRA ALVAREZ
--- NOTE | ~2023-12-02 | US_ITS ---
EXAM: Pelvic Ultrasound CLINICAL INDICATION: Irregular vaginal bleeding and pain. COMPARISON: Pelvic ultrasound December 03, 2021 TECHNIQUE: The pelvis was evaluated using transabdominal and transvaginal imaging. FINDINGS: The uterus measures 9.1 x 4.6 x 5.3 cm in longitudinal by AP by transverse dimension. The endometrial stripe measures 1.2 cm (patient currently menstruating). There is a punctate calcification along the posterior endometrium. The left ovary measures approximately 2.8 x 1.4 x 1.9 cm and contains a suspected approximately 1.5 cm corpus luteum. The right ovary measures approximately 2.2 x 0.8 x 1.6 cm and contains a 1.4 cm simple appearing cyst in addition to some punctate calcifications. There is a small amount of free fluid in the pelvis. US/US pelvic and transvaginal IMPRESSION: 1. Endometrial stripe measures 1.2 cm (patient currently menstruating). 2. Suspected 1.5 cm left corpus luteum. 3. Small amount of free pelvic fluid, possibly physiologic in a female of this age. Electronically signed by: Wesley Guerrero MD 12/02/2023 08:09 AM EDT
[2023-12-02 00:58] VITALS: BP 152/89; PULSE 84; RESP 18; TEMP 36.6; O2SAT 100; BMI 29.8
[2023-12-02 01:39] LABS: MANUAL DIFF FLAG NO
[2023-12-02 01:40] LABS: Basophils Percent Auto 0.3 % (0-2); Eosinophils Absolute Auto 0.1 X10*3/uL (0.0-0.4); Eosinophils Percent Auto 1.2 % (0-4); Hemoglobin 12.2 g/dl (12.0-16.0); Imm Gran Abs Auto 0.02 X10*3/uL (0.00-0.03); Imm Gran Pct Auto 0.3 % (0.0-0.4); Lymphocytes Absolute Auto 2.2 X10*3/uL (1.2-4.9); Lymphocytes Percent Auto 31.4 % (20-40); Mean Corpuscular HGB Conc 34.9 g/dl (31.0-35.0); Mean Corpuscular Hemoglobin 30.8 pg (27.0-33.0); Mean Corpuscular Volume 88.4 fL (80.0-98.0); Mean Platelet Volume 10.6 fL (9.4-12.3); Monocytes Absolute Auto 0.5 X10*3/uL (0.1-1.2); Monocytes Percent Auto 7.6 % (2-11); Neutrophils Absolute Auto 4.1 x10*3/uL (2.0-8.3); Neutrophils Percent Auto 59.2 % (45-73); Platelet Count 195 X10*3/uL (160-400); Red Blood Count 3.96 X10*6/uL (4.20-5.50); White Blood Count 6.9 X10*3/uL (4.8-10.8)
[2023-12-02 01:42] LABS: Appearance Urine Clear; Color Urine Yellow; Glucose Urine UA Negative (Negative); Leukocyte Esterase Urine Negative (Negative); Nitrite Urine Negative (Negative); Specific Gravity - Urine 1.025 (1.005-1.025); UMIC TRIGGER UACC YES; UPreg QC Valid YES; Urine Blood Large (3+) (Negative); Urine Ketones Negative (Negative); Urine Pregnancy NEGATIVE (NEGATIVE); Urine Protein 100 (2+) mg/dL (Neg-Trace)
[2023-12-02 01:44] LABS: Bacteria Urine None Seen (None Seen); Hyaline Casts Urine 0-2 /LPF (0-2); RBC Urine >20 /HPF (0-2); Squamous Epithelial Cell Urine 0-2 /HPF (0-2); WBC Urine 0-5 /HPF (0-5)
[2023-12-02 01:53] LABS: Alanine Aminotransferase 9 U/L (0-31); Albumin Level 3.5 g/dL (3.5-5.0); Alkaline Phosphatase 72 U/L (39-117); Anion Gap 10 (12-20); Aspartate Amino Transferase 17 U/L (5-31); Bilirubin Total 0.2 mg/dL (0.0-1.0); Blood Urea Nitrogen 20 mg/dL (9-16); Calcium 8.9 mg/dL (8.4-10.2); Carbon Dioxide 24 mmol/L (22-29); Chloride 110 mmol/L (96-108); Creatinine Clr Calc Pharmacy 59.6; Estimated Glomerular Filt Rate > 60; Glucose Random 88 mg/dL (60-115); Potassium 3.7 mmol/L (3.3-5.1); Sodium 140 mmol/L (135-145); Total Protein 6.2 g/dL (6.5-8.0)
[2023-12-02 02:00] VITALS: BP 142/84; PULSE 89; RESP 17; TEMP 36.6; O2SAT 99
[2023-12-02] MEDS: Acetaminophen 325 MG TABLET 975 MG PO (03:53)
[2023-12-02 04:25] VITALS: BP 141/79; PULSE 77; RESP 16; TEMP 36.6; O2SAT 98
[2023-12-02 06:21] VITALS: BP 169/91; PULSE 96; RESP 18; TEMP 36.6; O2SAT 97
--- NOTE | 2023-12-02 06:43 | ED_ITS ---
HPI - General Adult General Chief complaint: Vaginal Bleeding Stated complaint: abd cramping Time Seen by Provider: 12/02/23 06:39 Source: patient Mode of arrival: ambulatory Limitations: no limitations History of Present Illness ED Provider: Aileen Link PA-C HPI narrative: Patient is a 48 year old assigned female at with a history of fibromyalgia, RBBB, cardiomyopathy, lupus, HTN, ovarian cysts, kidney stones, and abnormal uterine bleeding that was formally controlled by depo injections presenting to the emergency department today with lower abdominal cramping and vaginal bleeding. Patient states that starting yesterday she began to have lower abdominal cramping with vaginal bleeding. Patient states that it feels cramping like menstrual cramps but somewhat worse. Patient denies any dizziness, lightheadedness, nausea, vomiting, fever, chills, blurry vision, double vision, loss of vision, chest pain, difficulty breathing, shortness of breath, back pain, night sweats, pain with urination, increased urinary frequency, increased urinary urgency, syncope or a near syncopal episode, recent trauma or falls, bowel incontinence, bladder incontinence, or any other complaints at this time. Relieving factors: none Exacerbating factors: none Associated symptoms: denies other symptoms Treatments prior to arrival: none Related Data Home Medications ?Medication ?Instructions ?Recorded ?Confirmed losartan 50 mg tablet 50 mg PO BID 12/13/19 10/21/23 fluticasone propionate 50 2 spray intranasal BID 06/17/20 10/21/23 mcg/actuation nasal spray,suspension cetirizine 10 mg tablet 10 mg PO DAILY 08/12/21 10/21/23 hydroxychloroquine 200 mg tablet 200 mg PO DAILY 05/28/23 10/21/23 Previous Rx's ?Medication ?Instructions ?Recorded omeprazole 20 mg capsule,delayed 40 mg (2 x 20 mg) PO DAILY 30 days 10/26/22 release #60 caps acetaminophen 500 mg tablet 500 mg PO Q6H PRN fever or pain 01/20/23 (Tylenol Extra Strength) #30 tabs pyridoxine (vitamin B6) 100 mg 100 mg PO DAILY 90 days #90 tabs 04/23/23 tablet gabapentin 300 mg capsule 300 mg PO BID 30 days #60 caps 04/30/23 meclizine 25 mg tablet 25 mg PO DAILY PRN Insomnia 30 04/30/23 days #30 tabs ondansetron 4 mg disintegrating 4 mg PO DAILY PRN nausea and 05/17/23 tablet vomiting 5 days #10 tabs Lactobacillus acidophilus 1 1,000 mmu cells PO DAILY #90 caps 05/28/23 billion cell capsule (Probiotic Gold Acidophilus) sennosides 8.6 mg-docusate sodium 1 tab-cap PO BEDTIME constipation 05/28/23 50 mg tablet (Senokot-S) 90 days #90 tabs acetaminophen 325 mg capsule 650 mg (2 x 325 mg) PO Q6H PRN 08/28/23 (Tylenol) pain #30 caps levothyroxine 100 mcg tablet 100 mcg PO DAILY 90 days #90 tabs 09/07/23 gabapentin 100 mg capsule 100 mg PO DAILY #90 caps 09/27/23 colchicine 0.6 mg capsule 0.6 mg PO DAILY 90 days #90 caps 11/24/23 Allergies Allergy/AdvReac Type Severity Reaction Status Date / Time aspirin Allergy Unknown vomiting, Verified 12/02/23 01:01 GI upset Review of Systems 2 Constitutional: Constitutional: Reports no additional constitutional complaints, Denies chills, Denies fever(s) and Denies night sweats Eyes: Eyes: Reports no additional eye complaints, Denies blurry vision, Denies change in vision, Denies diplopia, Denies eye discharge, Denies loss of vision and Denies eye pain ENT: Denies dizziness Cardiovascular: Cardiovascular: Reports no additional cardiovascular complaints, Denies chest pain, Denies lightheadedness, Denies Loss of Consciousness and Denies dyspnea Respiratory: Respiratory: Reports no additional respiratory complaints and Denies dyspnea Gastrointestinal: Gastrointestinal: Reports no additional gastrointestinal complaints, Reports abdominal pain, Denies melena, Denies hematochezia, Denies change in bowel habits and Denies change in stool character Genitourinary: Genitourinary: Denies urinary frequency, Denies dysuria, Denies urinary incontinence, Denies urinary hesitancy and Denies urinary urgency C omments: vaginal bleeding Musculoskeletal: Musculoskeletal: Reports no additional musculoskeletal complaints, Denies numbness and Denies tingling Neurologic: Denies dizziness, Denies loss of vision, Denies numbness and Denies tingling Psychiatric: Psychiatric: Reports no additional psychiatric complaints Endocrine: Endocrine: Reports no additional endocrine complaints Hematologic/Lymphatic: Hematologic/Lymphatic: Reports no additional hematologic/lymphatic complaints Allergic/Immunologic: Allergic/Immunologic: Reports no additional allergic/immunologic complaints [facility] Past Medical History Attestation statement: The following information was validated with the patient. 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 Mother No problems noted. 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, 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 Cognitive needs: No Hearing needs: No Vision needs: Yes Physical Exam ED Vital Signs: Vital Signs - 24 hr 12/02/23 00:58 12/02/23 02:00 12/02/23 04:25 Temperature 97.8 F 97.8 F 97.9 F Pulse Rate 84 89 77 Respiratory Rate 18 17 16 Blood Pressure 152/89 H 142/84 H 141/79 H Pulse Oximetry 100 99 98 Oxygen Delivery Method Room Air Room Air Room Air 12/02/23 06:21 12/02/23 08:32 Temperature 97.8 F 97.8 F Pulse Rate 96 96 Respiratory Rate 18 18 Blood Pressure 169/91 H 169/91 H Pulse Oximetry 97 97 Oxygen Delivery Method Room Air Room Air BMI result Body Mass Index 29.8 Const General: cooperative, no acute distress, alert and awake Nutritional Appearance: well nourished Orientation/consciousness: patient oriented x3 Limitations: no limitations HENMT Head: Yes normal to inspection and Yes atraumatic Ears: hearing grossly normal bilaterally and external ears normal General nose exam: Normal external nose present, no nasal discharge noted and no epistaxis Face and sinus: Yes normal facial exam, No abrasion and No laceration Mouth: Normal oral and palatal mucosa present, no drooling and no muffled voice Eyes General: appearance normal, both eyes and all related structures Periorbital: periorbital findings normal Eyelids: Yes eyelids normal Conjunctivae: conjunctivae normal Pupils: Equal, round and reactive pupils present EOM: EOMs intact bilaterally Neck Neck: Yes normal visual inspection, Yes full ROM and Yes no lymphadenopathy Chest Chest palpation & inspection: normal inspection of the chest Resp Effort & Inspection: normal respiratory effort and able to speak in complete sentences GI Inspection: Yes normal to inspection Palpation (GI): Soft to palpation, not firm, Tenderness to palpation present (GI) in the LLQ and in the RUQ, no guarding and not rigid Neuro General: patient oriented x3 and moves all extremities Cranial nerves: Yes Equal, round and reactive pupils present Cognition (Neuro): normal cognition Extrem General: Yes normal to inspection, Yes full ROM and Yes capillary refill normal Psych Appearance: grossly normal Mental Status: mental status grossly normal Affect: normal affect Attitude: cooperative Thought process: Normal thought process present Thought content: Normal thought content present Insight: Good insight present (Psych) Medications Administered Discontinued Medications Generic Name Dose Route Start Last Admin Trade Name Freq PRN Reason Stop Dose Admin Acetaminophen 975 mg 12/02/23 03:49 12/02/23 03:53 Acetaminophen 325 Mg Tablet PO 12/02/23 03:50 975 mg ONCE ONE Administration Ketorolac Tromethamine 15 mg 12/02/23 06:44 12/02/23 06:49 Ketorolac Tromethamine 15 Mg/Ml Vial IM 12/02/23 06:45 15 mg ONCE ONE Administration Medical Decision Making Medical Decision Making MDM Narrative: Patient is a 48 year old assigned female at with a history of fibromyalgia, RBBB, cardiomyopathy, lupus, HTN, ovarian cysts, kidney stones, and abnormal uterine bleeding that was formally controlled by depo injections presenting to the emergency department today with lower abdominal cramping and vaginal bleeding. Patient's physical exam was as noted in the physical exam portion of this note. Patient's blood work was unremarkable. Patient's urine showed no acute process. Patient's EKG was unremarkable. Patient's pelvic US showed evidence of a menstrual cycle with a possible corpus luteum present. I explained my physical exam findings as well as all test results to the patient. I answered all questions asked by the patient. Patient received IM Toradol which, upon re-evaluation, she stated it helped her symptoms significantly. I stressed the importance of the patient taking her medication as directed (either prescribed or as the over the counter packaging recommends). I stressed the importance of the patient following up with her primary care provider and her OBGYN. I stressed the importance of the patient returning to the emergency department immediately if her symptoms were to worsen or if she were to develop any dizziness, shortness of breath, difficulty breathing, chest pain, blurry vision, loss of vision, nausea, vomiting, abdominal pain, fever, chills, back pain, or any other complaints. Patient verbalized agreement and understanding with this treatment plan and discharge. Differential Diagnosis Differential Diagnoses: The differential diagnosis associated with the presentation includes Abdominal pain Menstrual cramping Admission/Observation Consideration of admission/observation: Escalation of care including admission/observation considered Patient would have been admitted to the hospital had her work up had any findings where hospital admission was appropriate and her clinical presentation warranted hospital admission. Lab Data [facility] Lab Attestation statement: I reviewed the patient's lab results. My interpretation of these results are in the [facility] Rationale portion of this note. 12/02/23 01:34 12/02/23 01:34 Labs: Lab Results 12/02/23 Range/Units 01:34 WBC 6.9 (4.8-10.8) X10*3/uL RBC 3.96 L (4.20-5.50) X10*6/uL Hgb 12.2 (12.0-16.0) g/dl Hct 35.0 L (37.0-47.0) % MCV 88.4 (80.0-98.0) fL MCH 30.8 (27.0-33.0) pg MCHC 34.9 (31.0-35.0) g/dl RDW 13.0 (11.0-16.0) % Plt Count 195 (160-400) X10*3/uL MPV 10.6 (9.4-12.3) fL Immature Gran % (Auto) 0.3 (0.0-0.4) % Neut % (Auto) 59.2 (45-73) % Lymph % (Auto) 31.4 (20-40) % [place] % (Auto) 7.6 (2-11) % Eos % (Auto) 1.2 (0-4) % Baso % (Auto) 0.3 (0-2) % Lymph # (Auto) 2.2 (1.2-4.9) X10*3/uL [place] # (Auto) 0.5 (0.1-1.2) X10*3/uL Eos # (Auto) 0.1 (0.0-0.4) X10*3/uL Baso # (Auto) 0.0 (0.0-0.2) X10*3/uL Abs Immat Gran (auto) 0.02 (0.00-0.03) X10*3/uL Absolute Neuts (auto) 4.1 (2.0-8.3) x10*3/uL Absolute Nucleated RBC 0.000 (0.0-0.012) X10*3/uL Nucleated RBC % (auto) 0.0 (0.0-0.2) /100WBC Sodium 140 (135-145) mmol/L Potassium 3.7 (3.3-5.1) mmol/L Chloride 110 H (96-108) mmol/L Carbon Dioxide 24 (22-29) mmol/L Anion Gap 10 L (12-20) BUN 20 H (9-16) mg/dL Creatinine 0.98 (0.5-1.4) mg/dL Estim Creat Clear Calc 59.6 Estimated GFR > 60 Random Glucose 88 (60-115) mg/dL Calcium 8.9 D (8.4-10.2) mg/dL Total Bilirubin 0.2 (0.0-1.0) mg/dL AST 17 (5-31) U/L ALT 9 (0-31) U/L Alkaline Phosphatase 72 (39-117) U/L Total Protein 6.2 L (6.5-8.0) g/dL Albumin 3.5 (3.5-5.0) g/dL Urine Color Yellow Urine Appearance Clear Urine pH 6.0 (5.0-9.0) Ur Specific [place] 1.025 (1.005-1.025) Urine Protein 100 (2+) H (Neg-Trace) mg/dL Urine Glucose (UA) Negative (Negative) mg/dL Urine Ketones Negative (Negative) mg/dL Urine Blood Large (3+) H (Negative) Urine Nitrite Negative (Negative) Ur Leukocyte Esterase Negative (Negative) Urine RBC >20 H (0-2) /HPF Urine WBC 0-5 (0-5) /HPF Ur Squamous Epith Cells 0-2 (0-2) /HPF Urine Bacteria None Seen (None Seen) Hyaline Casts 0-2 (0-2) /LPF Urine Test NEGATIVE (NEGATIVE) Independent Interpretation I performed an independent interpretation of an: EKG and Ultrasound Interpretation: My interpretation is in agreement with the radiologist's impression of this imaging study. L EXAM: Pelvic Ultrasound CLINICAL INDICATION: Irregular vaginal bleeding and pain. COMPARISON: Pelvic ultrasound December 03, 2021 TECHNIQUE: The pelvis was evaluated using transabdominal and transvaginal imaging. FINDINGS: The uterus measures 9.1 x 4.6 x 5.3 cm in longitudinal by AP by transverse dimension. The endometrial stripe measures 1.2 cm (patient currently menstruating). There is a punctate calcification along the posterior endometrium. The left ovary measures approximately 2.8 x 1.4 x 1.9 cm and contains a suspected approximately 1.5 cm corpus luteum. The right ovary measures approximately 2.2 x 0.8 x 1.6 cm and contains a 1.4 cm simple appearing cyst in addition to some punctate calcifications. There is a small amount of free fluid in the pelvis. US/US pelvic and transvaginal IMPRESSION: 1. Endometrial stripe measures 1.2 cm (patient currently menstruating). 2. Suspected 1.5 cm left corpus luteum. 3. Small amount of free pelvic fluid, possibly physiologic in a female of this age. Electronically signed by: Wesley Guerrero MD 12/02/2023 08:09 AM EDT RP Dictated By: Wesley Guerrero MD Signed By: Electronically signed by Wesley Guerrero MD 12/02/23 0809 Vent. Rate: 086 BPM Atrial Rate: 086 BPM P-R Int: 146 ms QRS Dur: 118 ms QT Int: 378 ms P-R-T Axes: 046 -17 017 degrees QTc Int: 452 ms Normal sinus rhythm Incomplete right bundle branch block Borderline ECG When compared with ECG of 28-AUG-2023 02:56, No significant change was found DD/ 0120 Radiology Impression Discussion of test interpretation with radiology: I have reviewed the radiologist's reading. Chronic Conditions Patient?s care impacted by: Hypertension Discharge Plan Discharge Clinical Impression: Menstrual cramps Patient Disposition: Home, Self-Care Instructions: Abdominal Pain (ED) Additional Instructions: Follow up with your primary care provider and your OBGYN. Return to the emergency department immediately if your symptoms worsen or if you develop any dizziness, shortness of breath, difficulty breathing, chest pain, blurry vision, loss of vision, nausea, vomiting, abdominal pain, fever, chills, back pain, or any other complaints. Prescriptions: No Action gabapentin 300 mg capsule 300 mg PO BID 30 Days Qty: 60 0RF meclizine 25 mg tablet 25 mg PO DAILY PRN (Reason: Insomnia) 30 Days Qty: 30 0RF levothyroxine 100 mcg tablet 100 mcg PO DAILY 90 Days Qty: 90 0RF gabapentin 100 mg capsule 100 mg PO DAILY Qty: 90 0RF colchicine 0.6 mg capsule 0.6 mg PO DAILY 90 Days Qty: 90 3RF fluticasone propionate 50 mcg/actuation spray,suspension 2 spray intranasal BID cetirizine 10 mg tablet 10 mg PO DAILY ondansetron 4 mg tablet,disintegrating 4 mg PO DAILY PRN (Reason: nausea and vomiting) 5 Days Qty: 10 0RF acetaminophen [Tylenol] 325 mg capsule 650 mg PO Q6H PRN (Reason: pain) Qty: 30 0RF hydroxychloroquine 200 mg tablet 200 mg PO DAILY sennosides-docusate sodium [Senokot-S] 8.6-50 mg tablet 1 tab-cap PO BEDTIME 90 Days Qty: 90 0RF Probiotic Gold Acidophilus 1 billion cell capsule 1,000 mmu cells PO DAILY Qty: 90 0RF acetaminophen [Tylenol Extra Strength] 500 mg tablet 500 mg PO Q6H PRN (Reason: fever or pain) Qty: 30 0RF losartan 50 mg tablet 50 mg PO BID omeprazole 20 mg capsule,delayed release(DR/EC) 40 mg PO DAILY 30 Days Qty: 60 5RF pyridoxine (vitamin B6) 100 mg tablet 100 mg PO DAILY 90 Days Qty: 90 1RF Referrals: Bryant Alejandra MD [Primary Care Provider] - Interventions: ED Discharge Assessment Last Done: 12/02/23 08:32 Discharge Date/Time: 12/02/23 08:34 Print Language: [place]
[2023-12-02] MEDS: Ketorolac Tromethamine 15 MG/ML VIAL IM (06:49)
--- NOTE | 2023-12-02 07:37 | PC.NURSE ---
report recieved from previous RN at this time, patient resting comfortably on stretcher, awaiting US
--- NOTE | 2023-12-02 07:52 | PC.NURSE ---
patient returned from CT, still endorsing some pain, provided with heat packs, patient endorsing relief.
[2023-12-02 08:32] VITALS: BP 169/91; PULSE 96; RESP 18; TEMP 36.6; O2SAT 97
== END 2023-12-02 08:34 | disposition home or self-care (01) ==
PROVIDERS: Emergency Provider Emergency Medicine; PCP Internal Medicine
DX: R10.2 Pelvic and perineal pain (principal); N92.6 Irregular menstruation, unspecified; I45.10 Unspecified right bundle-branch block; R94.31 Abnormal electrocardiogram [ECG] [EKG]; Z79.899 Other long term (current) drug therapy; Z87.891 Personal history of nicotine dependence
CPT/HCPCS: 36415; 76830; 76856; 80053; 81001; 81025; 85025; 93005; 96372; 99284; 99285; J1885

== ENCOUNTER → 2023-12-02 01:20 | Outpatient (BNV) | payer BC, SELFPAY | PROVIDERS: Emergency Provider Emergency Medicine; PCP Internal Medicine; Visit Provider Internal Medicine | DX: I45.10 Unspecified right bundle-branch block (principal) | CPT/HCPCS: 93010 ==

== ENCOUNTER 2023-12-06 08:41 | Outpatient (REF) | payer BC, SELFPAY | END 2023-12-06 08:42 | disposition home or self-care (01) | LOC: HO.LNP 08:41 | PROVIDERS: PCP Internal Medicine; Visit Provider Obstetrics & Gynecology | DX: Z13.89 Encounter for screening for other disorder (principal) ==

== ENCOUNTER 2023-12-06 08:41 | Outpatient (AMB) | payer BC, SELFPAY ==
--- NOTE | 2023-12-06 08:47 | A.OFFVIS_ITS ---
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 Complaining of heavy menstrual cycles associated with pelvic cramping and passage of blood clots Last Pap/HPV was negative in 11/05 Last Mammogram was BI-RADS 1 in 10/08 Last Colonoscopy was in 10/07, the recommendation was to repeat in 10 years Pelvic ultrasound done in 12/02/23 showed the following: The uterus measures 9.1 x 4.6 x 5.3 cm in longitudinal by AP by transverse dimension. The endometrial stripe measures 1.2 cm (patient currently menstruating). There is a punctate calcification along the posterior endometrium. The left ovary measures approximately 2.8 x 1.4 x 1.9 cm and contains a suspected approximately 1.5 cm corpus luteum. The right ovary measures approximately 2.2 x 0.8 x 1.6 cm and contains a 1.4 cm simple appearing cyst in addition to some punctate calcifications. There is a small amount of free fluid in the pelvis. 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 Mother No problems noted. 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 Cognitive needs: No Hearing needs: No Vision needs: Yes Female Reproductive History Menstrual Age of Menarche: 10 Date of last menstrual period: 12/01/23 control method: permanent sterilization Total pregnancies: 3 Full term: 3 Number of Living Children: 3 Date of last pap smear: 10/31/20 Date of Mammogram: 10/11/23 Review of Systems Const All systems reviewed & are unremarkable except as noted in HPI and below Card Reports as per HPI Resp Reports as per HPI GI Reports as per HPI and Reports no additional complaints Reports as per HPI Physical Exam Vital Signs: BMI result Body Mass Index 29.3 Const General: cooperative, healthy appearing and comfortable Chest Chest palpation & inspection: normal inspection of the chest and normal palpation of entire chest wall Breast/axilla inspection: normal inspection of the breasts and normal inspection of the axillae Breast/axilla palpation: normal palpation of the breasts, normal palpation of the axillae and no axillary lymphadenopathy Resp Effort & Inspection: normal respiratory effort Auscultation: clear to auscultation bilaterally Percussion: percussion normal Cardio Palpation: normal PMI Rate: regular rate Rhythm: regular rhythm Heart sounds: no murmurs and no rubs Peripheral pulses: Peripheral pulses 2+ throughout GI Inspection: Yes normal to inspection Palpation (GI): Soft to palpation, nontender, no guarding, not rigid and No hepatosplenomegaly present Percussion: Yes normal to percussion Auscultation: normal bowel sounds Rectal Exam - Female: deferred General: Yes bladder normal to palpation External Female Exam: No lesion Speculum Exam - Vagina: normal appearance of the vagina, normal palpation, normal vaginal discharge and not erythematous Speculum Exam - Cervix: normal appearance of the cervix and normal palpation Bimanual exam- vagina & uterus: normal bimanual exam, normal palpation, uterine size normal, bladder normal to palpation, consistency normal and normal palpation Bimanual Exam- Adnexa, other: normal adnexae, no masses and no tenderness Assessment & Plan Assessment & Plan (1) Abnormal uterine bleeding (AUB): Comment: With SLE, hypertension, lupus nephritis and hypothyroidism Code(s): N93.9 - Abnormal uterine and vaginal bleeding, unspecified Category: Medical Plan: Co testing done, GC and chlamydia taken CBC, TSH, prolactin, HCG, FSH/LH and pelvic ultrasound ordered. Discussed with the patient the different causes of abnormal bleeding including thyroid disorders, uterine and ovarian pathology, endometrial hyperplasia, carcinoma and other potential causes. Discussed with the patient the work up including CBC (to r/o anemia), TSH, prolactin, pelvic Ultrasound, endometrial biopsy to r/o endometrial pathology. All questions answered and the patient verbalized understanding. Instructed the patient to schedule an appointment for an endometrial biopsy in 2 weeks. (2) Well woman exam: Comment: History of BERNADETTE 1 in 2019 followed by negative co testing in 11/05 Code(s): Z01.419 - Encounter for gynecological examination (general) (routine) without abnormal findings Category: Medical Plan: Co testing done. Counseled the patient about the recommended dietary allowance of 1200 mg of Calcium & 600 IU of vitamin D. Instructions given the patient to schedule next screening Mammogram in 10/09. The patient was instructed to perform monthly self-breast exams and schedule annual exam in a year. All questions answered and the patient verbalized understanding. (3) Ovarian cyst: Code(s): N83.209 - Unspecified ovarian cyst, unspecified side Category: Medical Plan: Pelvic ultrasound ordered in 6 weeks follow-up on the suspected colpo luteum cyst Orders: Orders US pelvic and transvaginal 6 Weeks N83.209 - Unspecified ovarian cyst, unspecified side TSH reflex Free T4 Today N93.9 - Abnormal uterine and vaginal bleeding, unspecified Complete Blood Count no Diff Today N93.9 - Abnormal uterine and vaginal bleeding, unspecified Prolactin Today N93.9 - Abnormal uterine and vaginal bleeding, unspecified Follicle Stimulating Hormone Today N93.9 - Abnormal uterine and vaginal bleeding, unspecified HCG Quantitative Today N93.9 - Abnormal uterine and vaginal bleeding, unspecified Lutenizing Hormone Today N93.9 - Abnormal uterine and vaginal bleeding, unspecified Coding Level of Care Code Est Pt Level 3 (17095) Est Pt Prev Care 40-64y(88171) Diagnoses Abnormal uterine bleeding (AUB) N93.9 Well woman exam Z01.419 Ovarian cyst N83.209
[2023-12-06 08:48] VITALS: BMI 29.3
== END 2023-12-06 09:23 | disposition home or self-care (01) ==
LOC: HO.HWS 08:41
PROVIDERS: PCP Internal Medicine; Visit Provider Obstetrics & Gynecology
DX: Z01.419 Encounter for gynecological examination (general) (routine) without abnormal findings (principal); N93.9 Abnormal uterine and vaginal bleeding, unspecified; N83.201 Unspecified ovarian cyst, right side; N83.202 Unspecified ovarian cyst, left side
CPT/HCPCS: 99213; 99396

== ENCOUNTER 2023-12-06 09:42 | Outpatient (REF) | payer BC, SELFPAY ==
[2023-12-06 10:43] LABS: Hematocrit 37.3 % (37.0-47.0); Hemoglobin 12.6 g/dl (12.0-16.0); Mean Corpuscular HGB Conc 33.8 g/dl (31.0-35.0); Mean Corpuscular Hemoglobin 30.2 pg (27.0-33.0); Mean Corpuscular Volume 89.4 fL (80.0-98.0); Platelet Count 207 X10*3/uL (160-400); Red Blood Count 4.17 X10*6/uL (4.20-5.50); Red Cell Distribution Width 13.1 % (11.0-16.0); White Blood Count 4.4 X10*3/uL (4.8-10.8)
[2023-12-06 11:27] LABS: HCG Quantitative < 2 mIU/mL
[2023-12-07 09:12] LABS: CT PCR NOT DETECTED (Not Detect.); NG PCR NOT DETECTED (Not Detect.)
[2023-12-07 10:22] LABS: Follicle Stimulating Hormone 49.6 mIU/mL; Lutenizing Hormone 14.2 mIU/mL; Prolactin 9.7 ng/mL
[2023-12-08 17:08] LABS: HPV mRNA E6/E7 Not Detected (Not Detected)
== END 2023-12-06 09:43 | disposition home or self-care (01) ==
LOC: HO.LAB 09:42
PROVIDERS: PCP Internal Medicine; Visit Provider Obstetrics & Gynecology
DX: Z01.419 Encounter for gynecological examination (general) (routine) without abnormal findings (principal); N93.9 Abnormal uterine and vaginal bleeding, unspecified
CPT/HCPCS: 36415; 83001; 83002; 84146; 84702; 85027; 87491; 87591; 87624; 88175

== ENCOUNTER 2023-12-27 09:16 | Outpatient (REF) | payer BC, SELFPAY | END 2023-12-27 09:17 | disposition home or self-care (01) | LOC: HO.LNP 09:16 | PROVIDERS: PCP Internal Medicine; Visit Provider Obstetrics & Gynecology | DX: N93.9 Abnormal uterine and vaginal bleeding, unspecified (principal) | CPT/HCPCS: 58100; 81025; 88305 ==

== ENCOUNTER 2023-12-27 09:16 | Outpatient (AMB) | payer BC, SELFPAY ==
--- NOTE | 2023-12-27 09:17 | MHC.OFFVIS ---
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 Present (Khadra ) Allergies aspirin Allergy (Unknown, Verified 12/27/23 09:24) vomiting, GI upset HPI Comments Details: Presenting for EMB [facility] Medical History Well woman exam Foraminal stenosis of cervical region Radiculitis of left cervical region History of pericarditis Kidney stones Other specified hypothyroidism COVID-19 virus infection Cervical radiculopathy Chronic constipation Acute pericarditis Joint pain in fingers of right hand Myositis Hypothyroid SLE (systemic lupus erythematosus) Pericardial effusion Dysplasia of cervix, low grade (BERNADETTE 1) 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 Mother No problems noted. 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 Cognitive needs: No Hearing needs: No Vision needs: Yes Female Reproductive History Menstrual Age of Menarche: 10 Duration of menses: 3-5 days Date of last menstrual period: 12/04/23 Review of Systems Const All systems reviewed & are unremarkable except as noted in HPI and below Reports as per HPI and Reports no additional complaints GI Reports no additional complaints Reports no additional complaints Office Procedures Endometrial Biopsy Details: The patient was counseled regarding the indication and benefits of endometrial sampling to rule out endometrial pathology including not limited to endometrial hyperplasia or endometrial cancer and others; The alternatives (Either do nothing vs. hysteroscopy D&C) & the risks were discussed with the patient including but not limited: pain, uterine perforation, bleeding, infection, possible injury to bladder, bowel, ureter, possible need for blood transfusion with all its possible risks. The patient verbalized understanding all questions answered and signed consent. Urine test done in the office was negative The patient was placed into the dorsal lithotomy position; a speculum was inserted in the vagina. Using aseptic technique for the procedure, the cervix was cleansed with Betadine. The anterior lip of the cervix was grasped with a single tooth tenaculum. The uterus was sounded to 7 cm with a 4 mm Pipelle was used. Tissues samples were obtained and placed in formalin, in a patient labeled container and sent to the pathology department. At the end of the procedure, there was minimal bleeding noted The patient tolerated the procedure well and was discharged in good condition with the following instructions: Nothing in the vagina until the bleeding stops. No sex until the bleeding stops, to call if any of the following occurs: fever (>100.4), flu-like symptoms, abdominal pain, heavy bleeding, four smelling vaginal discharge. The patient was instructed to schedule a Follow up appointment in 2 weeks to discuss pathology results of the biopsy and treatment options. This note was generated with a voice recognition program. Some errors may have been overlooked during the review of this note. Sometimes these errors may affect the content or meaning of a given sentence. [id number] Biopsy Assessment & Plan Assessment & Plan (1) Abnormal uterine bleeding (AUB): Comment: With SLE, hypertension, lupus nephritis and hypothyroidism Code(s): N93.9 - Abnormal uterine and vaginal bleeding, unspecified Category: Medical Plan: EMB done, see procedure note Orders: Orders AMB Endometrial Biopsy Today N93.9 - Abnormal uterine and vaginal bleeding, unspecified Coding Level of Care Code Procedure Only Diagnoses Abnormal uterine bleeding (AUB) N93.9 CPT Codes Endometrial Biopsy - CPT: 06612-Kyzazhvrgon Biopsy ([id number])
== END 2023-12-27 10:41 | disposition home or self-care (01) ==
LOC: HO.HWS 09:16
PROVIDERS: PCP Internal Medicine; Visit Provider Obstetrics & Gynecology
DX: N93.9 Abnormal uterine and vaginal bleeding, unspecified (principal); Z32.02 Encounter for pregnancy test, result negative
CPT/HCPCS: 58100

== ENCOUNTER 2024-01-04 12:20 | Outpatient (AMB) | payer BC, SELFPAY ==
[2024-01-04 12:32] VITALS: BP 132/80; PULSE 88; O2SAT 100; BMI 29.1
--- NOTE | 2024-01-04 12:32 | A.OFFPC_ITS ---
Vital Signs 01/04/24 12:32 Height 5 ft Weight 149 lb 4 oz BMI 29.1 BP 132/80 Blood Pressure Location Rt brachial Position Sitting Pulse 88 Pulse Source Pulse Oximeter Pulse Oximetry (%) 100 Oxygen Delivery Method Room Air Intake Visit Reasons: PE Allergies aspirin Allergy (Unknown, Verified 01/04/24 12:35) vomiting, GI upset Medication List - Last Reconciled 01/04/24 by Bryant Alejandra MD acetaminophen (Tylenol) 650 mg (2 x 325 mg) PO Q6H PRN acetaminophen (Tylenol Extra Strength) 500 mg PO Q6H PRN cetirizine 10 mg PO DAILY colchicine 0.6 mg PO DAILY 90 days fluticasone propionate 50 mcg/actuation 2 sprays intranasal BID gabapentin 300 mg PO BID 30 days gabapentin 100 mg PO DAILY hydroxychloroquine 200 mg PO DAILY Lactobacillus acidophilus (Probiotic Gold Acidophilus) 1,000 mmu cells PO DAILY levothyroxine 100 mcg PO DAILY 90 days losartan 50 mg PO BID meclizine 25 mg PO DAILY PRN 30 days omeprazole 40 mg (2 x 20 mg) PO DAILY 30 days ondansetron 4 mg PO DAILY PRN 5 days pyridoxine (vitamin B6) 100 mg PO DAILY 90 days sennosides-docusate sodium 8.6-50 mg (Senokot-S) 1 tab-cap PO BEDTIME 90 days Tobacco use date assessed: 01/04/24 Dental Screening Dental Screen Date: 01/04/24 Did you have a dental visit in the last 12 months?: Yes Did you have a dental problem in the last 6 months where you did not have access to dental care?: No Was dental information given to patient?: Patient has dentist HPI PE HPI Details The patient is a 48-year-old female came in today for physical examination Patient suffers from chronic pain and difficulty in performing daily activities due to fibromyalgia and lupus related arthritis. She reports a history of knee instability, which recently resulted in a fall down the stairs. Physical therapy had been attempted without success. Due to pain and functional limitations Also having pain right elbow, diagnosed as tennis elbow, she is experiencing challenges in completing everyday tasks. Chronic nasal congestion: The patient also reports persistent use of Afrin for nasal congestion because of allergic rhinitis, but has recently switched to fluticasone nasal spray as recommended due to concerns of rebound congestion. She is currently on prednisone to manage allergy symptoms. Through her ENT provider. She continues treatment for systemic lupus erythematosus with hydroxychloroquine and has reported no significant changes in her condition. Additionally, she presented with a concern of abnormal menstrual bleeding, leading to a recent OB-HISTOLOGICAL ILLUSTRATOR consultation and biopsy. Notably, the patient's thyroid function tests were normal in August, but she continues on levothyroxine for hypothyroidism due to her non-functional thyroid. Employed, working three days from the office and two days from home - Functional limitations due to chronic pain impacting daily activities - Drives independently However she is in need of handicap placard renewal which I did Mammogram performed in September, results normal - Colonoscopy conducted last year, with recommendation to repeat in 10 years -previous labs reviewed, showing no anem ia, normal electrolytes, kidney, and liver function Continue prescribed medications as directed - Monitor for changes in pain or onset o f new symptoms - OB-HISTOLOGICAL ILLUSTRATOR follow up as necessary - Return for rheumatology appointment in January - Seek medical advice if experiencing in creased pain, bleeding, or other unexpected symptoms Follow-up 4 months [facility] Medical History Well woman exam Foraminal stenosis of cervical region Radiculitis of left cervical region History of pericarditis Kidney stones Other specified hypothyroidism COVID-19 virus infection Cervical radiculopathy Chronic constipation Acute pericarditis Joint pain in fingers of right hand Myositis Hypothyroid SLE (systemic lupus erythematosus) Pericardial effusion Dysplasia of cervix, low grade ([place] 1) 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 Mother No problems noted. 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 1. Little interest or pleasure in doing things: more than half the days 2. Feeling down, depressed, or hopeless: several days 3. Trouble falling or staying asleep, or sleeping too much: more than half the d ays 4. Feeling tired or having little energy: nearly every day 5. Poor appetite or overeating: nearly every day 6. Feeling bad about yourself - or that you are a failure or have let yourself or your family down: not at all 7. Trouble concentrating on things, such as reading the newspaper or watching television: not at all 8. Moving or speaking so slowly that other people could have noticed. Or the opposite - being so fidgety or restless that you have been moving around a lot more than usual: several days 9. Thoughts that you would be better off or of hurting yourself in some way: not at all Total score: 12 Depression Screening Interpretation: Positive Depression Screening Follow-up: Existing condition and In treatment Depression Screening Done: Yes 95453 - PHQ-9 Billing: Yes Source: Developed by Drs. Gary Winters, Juany Larsen, John Paul Godoy and colleagues, with an educational matt from [employer]. Thrive Questionnaire Date Thrive assessed: 01/02/24 I am a: Patient What is your living situation today?: I have a steady place to live Within the past 12 months, did the food you bought not last and you didn't have the money to get more?: Sometimes True Within the past 12 months, did you worry whether your food would run out before you got money to buy more?: Sometimes True Do you have trouble paying for medicines?: I choose not to answer this question Do you have trouble getting transportation to medical appointments?: No Do you have trouble paying your heating and electricity bill?: No Do you have trouble taking care of your child, family member or friend?: No Do you have trouble with day-to-day activities such as bathing, preparing meals, shopping, managing finances, etc.?: Yes Are you currently unemployed and looking for a job?: No Are you interested in more education?: Yes Please select the resources that you would like help with: Daily support Currently or been in a relationship where the following occur: No concerns repo rted THRIVE Score: 2 AUDIT C Alcohol Use Questionnaire (AUDIT-C) 1. How often do you have a drink containing alcohol?: Monthly or less 2. How many drinks containing alcohol do you have on a typical day when you are drinking?: 1 or 2 3. How often do you have six or more drinks on one occasion?: Never Total Score: 1 SILVANA-7 AMB Questionnaire SILVANA-7 Date SILVANA - 7 assessed: 09/03/23 Feeling nervous, anxious, or on edge: 1 = Several days Not being able to stop or control worryin = Several days Worrying too much about different things: 1 = Several days Trouble relaxin = Several days Being so restless that it is hard to sit still: 1 = Several days Becoming easily annoyed or irritable: 1 = Several days Feeling afraid as if something awful might happen: 0 = Not at all Total SILVANA-7 score (0-4 normal; 5-9 mild; 10-14 moderate; 15-21 severe): 6 Source: Developed by Drs. Gary Winters, Juany Larsen, John Paul Godoy and colleagues, with an educational matt from [employer]. Review of Systems Const Denies chills, Denies fever(s) and Denies headache(s) Eyes Denies blurry vision ENT Denies headache(s), Denies nasal discharge, Denies nasal obstruction, Denies odynophagia and Denies sinus pain Card Denies chest pain at rest and Denies chest pain with activity Resp Denies cough and Denies hemoptysis GI Denies diarrhea, Denies odynophagia, Denies vomiting and Denies hematemesis Reports as per HPI Musc Denies abnormal gait Skin/Breast Reports as per HPI Neuro Denies Neuro-related abnormal movements, Denies Abnormal speech present, Denies abnormal gait and Denies headache(s) Psych Denies mood swings and Denies paranoia Endo Reports as per HPI Iván/Lymph Reports as per HPI Aller/Immun Reports as per HPI Physical exam (Primary Care) Vital Signs: Last Vital Signs Pulse 88 01/04/24 12:32 BP 132/80 01/04/24 12:32 Pulse Ox 100 01/04/24 12:32 Oxygen Delivery Method Room Air 01/04/24 12:32 BMI result Body Mass Index 29.1 Tobacco/Smoking Status: Tobacco use Status Tobacco use date assessed 01/04/24 01/04/24 12:35 Patient Tobacco Use Status Former Tobacco user 01/04/24 12:35 Tobacco use type Cigarette 01/04/24 12:35 e-Cigarette/Vaping Use Currently Using 01/04/24 12:35 PHQ-9: PHQ-9 Score PHQ-9: Total score 12 01/04/24 13:14 Depression Screening Interpretation: Positive Depression Screening Follow-up: Existing condition and In treatment Thrive Assessment: Date of Thrive Assessment Date Thrive assessed 01/02/24 01/04/24 12:35 Currently or been in a relationship where the following occur: No concerns reported Const General: cooperative, comfortable and no acute distress Orientation/consciousness: patient oriented x3 HENMT Head: Yes normocephalic and Yes atraumatic Eyes General: appearance normal, both eyes and all related structures Pupils: Equal, round and reactive pupils present EOM: EOMs intact bilaterally Neck Neck: Yes supple and No lymphadenopathy Thyroid: Thyroid normal Lymphatic: no lymphadenopathy noted Resp Effort & Inspection: normal respiratory effort and able to speak in complete sentences Auscultation: clear to auscultation bilaterally Cardio Heart sounds: S1 normal heart sound present and S2 normal heart sound present GI Palpation (GI): Soft to palpation and nontender Auscultation: normal bowel sounds General: Yes no CVA tenderness Back/Spine/Pelvis Back: no CVA tenderness Skin General skin exam: elasticity normal and turgor normal Neuro General: patient oriented x3 and gait normal Cranial nerves: Yes Equal, round and reactive pupils present Speech: No Abnormal speech present Coordination: Romberg test negative Extrem General: Yes normal exam except as noted and No edema Coding Level of Care Code Est Pt Level 4 (11300) Est Pt Prev Care 40-64y(09338) Diagnoses Encounter for general adult medical examination with abnormal findings Z00.01 Fibromyalgia M79.7 Bilateral primary osteoarthritis of knee M17.0 Chronic pain syndrome G89.4 Chronic pain type: chronic pain syndrome Nephropathy associated with another disease N08 Cardiomyopathy, unspecified type I42.9 Cardiomyopathy type: unspecified Gastroesophageal reflux disease without esophagitis K21.9 Esophagitis presence: without esophagitis Environmental allergies Z91.09 Complex ovarian cyst N83.299 Long-term use of hydroxychloroquine Z79.899 Hypothyroidism, unspecified type E03.9 Hypothyroidism type: unspecified 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 Chronic pericarditis associated with systemic lupus erythematosus (SLE), unspecified complication status M32.12 Chronicity: chronic Chronic pericarditis complication: unspecified complication status Primary hypertension I10 Hypertension type: primary hypertension Other systemic lupus erythematosus with pericarditis M32.12 Systemic lupus erythematosus type: other Systemic lupus erythematosus organ involvement: pericarditis Additional Codes PHQ-9 - 26361 - PHQ-9 Billing: Yes ([id number]) Assessment & Plan Assessment & Plan (1) Encounter for general adult medical examination with abnormal findings: Code(s): Z00.01 - Encounter for general adult medical examination with abnormal findings Category: Medical (2) Fibromyalgia: Code(s): M79.7 - Fibromyalgia Category: Medical (3) Bilateral primary osteoarthritis of knee: Code(s): M17.0 - Bilateral primary osteoarthritis of knee Category: Medical (4) Chronic pain: Code(s): G89.29 - Other chronic pain Category: Medical Qualifiers: Chronic pain type: chronic pain syndrome Qualified Code(s): G89.4 - Chronic pain syndrome (5) Nephropathy associated with another disease: Code(s): N08 - Glomerular disorders in diseases classified elsewhere Category: Medical (6) Cardiomyopathy: Code(s): I42.9 - Cardiomyopathy, unspecified Category: Medical Qualifiers: Cardiomyopathy type: unspecified Qualified Code(s): I42.9 - Cardiomyopathy, unspecified (7) Acid reflux: Comment: Acid reflux, precautions reviewed continue PPI, avoid culprits Code(s): K21.9 - Gastro-esophageal reflux disease without esophagitis Category: Medical Qualifiers: Esophagitis presence: without esophagitis Qualified Code(s): K21.9 - Gastro-esophageal reflux disease without esophagitis (8) Environmental allergies: Code(s): Z91.09 - Other allergy status, other than to drugs and biological substances Category: Medical (9) Complex ovarian cyst: Code(s): N83.299 - Other ovarian cyst, unspecified side Category: Medical (10) Long-term use of hydroxychloroquine: Code(s): Z79.899 - Other exterminator (current) drug therapy Category: Medical (11) Hypothyroid: Code(s): E03.9 - Hypothyroidism, unspecified Category: Medical Qualifiers: Hypothyroidism type: unspecified Qualified Code(s): E03.9 - Hypothyroidism, unspecified (12) Lupus nephritis: Code(s): M32.14 - Glomerular disease in systemic lupus erythematosus Category: Medical (13) Pericarditis associated with systemic lupus erythematosus: Code(s): I31.9 - Disease of pericardium, unspecified; M32.12 - Pericarditis in systemic lupus erythematosus Category: Medical Qualifiers: Chronicity: chronic Chronic pericarditis complication: unspecified complication status Qualified Code(s): M32.12 - Pericarditis in systemic lupus erythematosus (14) HTN (hypertension): Code(s): I10 - Essential (primary) hypertension Category: Medical Qualifiers: Hypertension type: primary hypertension Qualified Code(s): I10 - Essential (primary) hypertension (15) SLE (systemic lupus erythematosus): Comment: dx in her teens (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, most recent kidney biopsy in 2001 with no active features of lupus nephritis with ongoing proteinuria, body aches, pericarditis with effusion that required pericardial window, abnormal nailfold capillaroscopy +++SSa) HCQ Code(s): M32.9 - Systemic lupus erythematosus, unspecified Category: Medical Qualifiers: Systemic lupus erythematosus type: other Systemic lupus erythematosus organ involvement: pericarditis Qualified Code(s): M32.12 - Pericarditis in systemic lupus erythematosus Plan The patient is a 48-year-old female came in today for physical examination Patient suffers from chronic pain and difficulty in performing daily activities due to fibromyalgia and lupus related arthritis. She reports a history of knee instability, which recently resulted in a fall down the stairs. Physical therapy had been attempted without success. Due to pain and functional limitations Also having pain right elbow, diagnosed as tennis elbow, she is experiencing challenges in completing everyday tasks. Chronic nasal congestion: The patient also reports persistent use of Afrin for nasal congestion because of allergic rhinitis, but has recently switched to fluticasone nasal spray as recommended due to concerns of rebound congestion. She is currently on prednisone to manage allergy symptoms. Through her ENT provider. She continues treatment for systemic lupus erythematosus with hydroxychloroquine and has reported no significant changes in her condition. Additionally, she presented with a concern of abnormal menstrual bleeding, leading to a recent OB-HISTOLOGICAL ILLUSTRATOR consultation and biopsy. Notably, the patient's thyroid function tests were normal in August, but she continues on levothyroxine for hypothyroidism due to her non-functional thyroid. Employed, working three days from the office and two days from home - Functional limitations due to chronic pain impacting daily activities - Drives independently However she is in need of handicap placard renewal which I did Mammogram performed in September, results normal - Colonoscopy conducted last year, with recommendation to repeat in 10 years -previous labs reviewed, showing no anemia, normal electrolytes, kidney, and liver function Continue prescribed medications as directed - Monitor for changes in pain or onset of new symptoms - OB-HISTOLOGICAL ILLUSTRATOR follow up as necessary - Return for rheumatology appointment in January - Seek medical advice if experiencing increased pain, bleeding, or other unexpected symptoms Follow-up 4 months
== END 2024-01-04 13:22 | disposition home or self-care (01) ==
PROVIDERS: PCP Internal Medicine; Visit Provider Internal Medicine
DX: Z00.00 Encounter for general adult medical examination without abnormal findings (principal); I42.9 Cardiomyopathy, unspecified; M32.14 Glomerular disease in systemic lupus erythematosus; M32.12 Pericarditis in systemic lupus erythematosus; M79.7 Fibromyalgia; M17.0 Bilateral primary osteoarthritis of knee; G89.4 Chronic pain syndrome; N08 Glomerular disorders in diseases classified elsewhere; K21.9 Gastro-esophageal reflux disease without esophagitis; Z91.09 Other allergy status, other than to drugs and biological substances; N83.299 Other ovarian cyst, unspecified side; Z79.899 Other long term (current) drug therapy

== ENCOUNTER → 2024-01-04 12:20 | Outpatient (BNVA) | payer BC, SELFPAY | PROVIDERS: PCP Internal Medicine; Visit Provider Internal Medicine | DX: Z00.01 Encounter for general adult medical examination with abnormal findings (principal); M79.7 Fibromyalgia; M17.0 Bilateral primary osteoarthritis of knee; G89.4 Chronic pain syndrome; I42.9 Cardiomyopathy, unspecified; K21.9 Gastro-esophageal reflux disease without esophagitis; N83.299 Other ovarian cyst, unspecified side; E03.9 Hypothyroidism, unspecified; M32.14 Glomerular disease in systemic lupus erythematosus; M32.12 Pericarditis in systemic lupus erythematosus; I10 Essential (primary) hypertension; Z79.899 Other long term (current) drug therapy; Z91.09 Other allergy status, other than to drugs and biological substances | CPT/HCPCS: 96127 ==

== ENCOUNTER 2024-01-20 14:01 | Outpatient (AMB) | payer BC, SELFPAY ==
[2024-01-20 14:45] VITALS: BP 120/72; PULSE 71; O2SAT 98; BMI 29.7
--- NOTE | 2024-01-20 14:45 | MHC.OFFVIS ---
Vital Signs 01/20/24 14:45 Height 5 ft Weight 152 lb 1.903 oz BMI 29.7 BP 120/72 Blood Pressure Location Lt brachial Position Sitting Pulse 71 Pulse Source Pulse Oximeter Pulse Oximetry (%) 98 Oxygen Delivery Method Room Air Intake Visit Reasons: Lupus/LM Intake Note: Patient presents for follow up on lupus. Allergies aspirin Allergy (Unknown, Verified 01/20/24 14:46) vomiting, GI upset HPI HPI Lupus/LM: Details: She has been experiencing increased pain especially in her bilateral elbows and left knee. Left knee has been giving out on her. She has completed physical therapy without benefit. She does not wear a knee brace. She reports that in the summer she had an exacerbation of pericarditis for which he presented to [facility]. She recently saw brine maker who is ordering labs. She has only see brine maker twice and reports that her protein in her urine is high. She denies any fevers, rashes, oral ulcers, dyspnea, urinary symptoms. She has history of Raynaud's in her fingers triggered by cold weather. Raynaud's syndrome is controlled with wearing gloves. HPI Comments Details: Persistent bilateral elbow pain despite elbow using support band. Bending and extending elbows exacerbates pain. 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 Mother No problems noted. 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 Good respiratory effort Skin: No lesions seen MSK: Tender to palpate bilateral lateral epicondyles. She did not have pain with resisted wrist extension. No synovitis of any joints present. She has tenderness of small joints in her hands. Left knee is tender on palpation along joint line. Good range of motion of upper extremities and lower extremities. Assessment & Plan Assessment & Plan (1) SLE (systemic lupus erythematosus): Comment: She has history of lupus class 2 diagnosed when she was a teenager on biopsy. Repeat biopsy 2001 revealed no active lupus nephritis with ongoing proteinuria. She also has recurrent pericarditis previously treated with pericardial window due pericardial effusion with most recent episode treated with colchicine with relief. She also has Raynaud's phenomenon, which is controlled conservatively. We will obtain labs for disease and drug monitoring this visit. Code(s): M32.9 - Systemic lupus erythematosus, unspecified Category: Medical Qualifiers: Systemic lupus erythematosus organ involvement: pericarditis Systemic lupus erythematosus type: unspecified Qualified Code(s): M32.12 - Pericarditis in systemic lupus erythematosus Plan: Labs for disease and drug monitoring ordered. She is currently taking hydroxychloroquine 200 mg daily. After lab results are back, we will increase hydroxychloroquine to 300 mg daily to recent episode of pericarditis. HCQ surveillance exam VF 10/05/2023, OCT baseline 07/08/2022. She will follow-up with cardiology for for monitoring of recurrent pericarditis She will also follow-up with Nephrology due to history of lupus nephritis with proteinuria Return to clinic in 3 months I am requesting kidney biopsy results from [facility] requested (2) Raynaud disease without gangrene: Comment: Controlled with conservative management Code(s): I73.00 - Raynaud's syndrome without gangrene Category: Medical Plan: Continue to wear gloves in the cold Return to clinic in 3 months (3) Left knee pain: Comment: Knee gives out on patient with uncontrolled pain. Failed physical therapy. I recommended bracing. Code(s): M25.562 - Pain in left knee Category: Medical Qualifiers: Chronicity: chronic Qualified Code(s): M25.562 - Pain in left knee; G89.29 - Other chronic pain Plan: Left knee brace ordered We will obtain x-ray of left knee next visit if she continues to have knee pain She will avoid oral NSAIDs advice from brine maker She will take Tylenol as needed for pain (4) Lateral epicondylitis of both elbows: Comment: Suspected. Uncontrolled pain. We discussed conservative management. Code(s): M77.11 - Lateral epicondylitis, right elbow; M77.12 - Lateral epicondylitis, left elbow Category: Medical Plan: She agreed to PT She will continue to wear elbow support bands when needed such as when lifting Orders: Orders Alanine Aminotransferase 01/20/24 I73.00 - Raynaud's syndrome without gangrene Aspartate Amino Transferase 01/20/24 I73.00 - Raynaud's syndrome without gangrene, M32.9 - Systemic lupus erythematosus, unspecified Erythrocyte Sedimentation Rate 01/20/24 I73.00 - Raynaud's syndrome without gangrene, M32.9 - Systemic lupus erythematosus, unspecified Complement C3 01/20/24 M32.9 - Systemic lupus erythematosus, unspecified Anti DNA DS Antibody 01/20/24 M32.9 - Systemic lupus erythematosus, unspecified Creatinine 01/20/24 M32.9 - Systemic lupus erythematosus, unspecified UA w Microscopic 01/20/24 M32.9 - Systemic lupus erythematosus, unspecified Hepatitis B,C Profile 01/20/24 M32.9 - Systemic lupus erythematosus, unspecified T Spot TB 01/20/24 M32.9 - Systemic lupus erythematosus, unspecified C Reactive Protein 01/20/24 M32.9 - Systemic lupus erythematosus, unspecified Complement C4 01/20/24 M32.9 - Systemic lupus erythematosus, unspecified LING Reflex Titer and Pattern 01/20/24 M32.9 - Systemic lupus erythematosus, unspecified Complete Blood Count Auto Diff 01/20/24 M32.9 - Systemic lupus erythematosus, unspecified Protein Creatinine Ratio, Ur 01/20/24 M32.9 - Systemic lupus erythematosus, unspecified Referrals Physical Medicine and Rehabilitation Referral M77.11 - Lateral epicondylitis, right elbow, M77.12 - Lateral epicondylitis, left elbow Medications: New leg brace (Knee Support Brace) As directed 1 ea 0RF left knee pain M25.562 - Pain in left knee Coding Level of Care Code Est Pt Level 5 (32091) Complex EM visit Add On G2211 Diagnoses Systemic lupus erythematosus (SLE) with pericarditis, unspecified SLE type M32.12 Systemic lupus erythematosus organ involvement: pericarditis Systemic lupus erythematosus type: unspecified Raynaud disease without gangrene I73.00 Chronic pain of left knee M25.562; G89.29 Chronicity: chronic Lateral epicondylitis of both elbows M77.11; M77.12 Time Spent (min) 60 Comment 30 minutes spent reviewing records in EMR
== END 2024-01-20 15:23 | disposition home or self-care (01) ==
PROVIDERS: PCP Internal Medicine; Visit Provider Internal Medicine Rheumatology
DX: M32.12 Pericarditis in systemic lupus erythematosus (principal); I73.00 Raynaud's syndrome without gangrene; M25.562 Pain in left knee; G89.29 Other chronic pain; M77.11 Lateral epicondylitis, right elbow; M77.12 Lateral epicondylitis, left elbow
CPT/HCPCS: 99215; 99417

== ENCOUNTER → 2024-01-20 14:01 | Outpatient (BNVA) | payer BC, SELFPAY | PROVIDERS: PCP Internal Medicine; Visit Provider Internal Medicine Rheumatology ==

== ENCOUNTER 2024-01-21 09:31 | Outpatient (REF) | payer BC, SELFPAY ==
[2024-01-21 11:18] LABS: Parathyroid Hormone Intact 44.9 pg/mL (8.7-77.1)
[2024-01-21 11:34] LABS: Anion Gap 8 (12-20); Blood Urea Nitrogen 15 mg/dL (9-16); Calcium 9.3 mg/dL (8.4-10.2); Carbon Dioxide 27 mmol/L (22-29); Chloride 111 mmol/L (96-108); Estimated Glomerular Filt Rate > 60; Potassium 3.6 mmol/L (3.3-5.1); Sodium 142 mmol/L (135-145)
[2024-01-21 12:34] LABS: Creatinine Urine 133.82 mg/dL; Microalbum/Creatinine Ratio Ur 237.6 ug/mg cr (<30); Protein/Creatinine Ratio, Ur 0.33 (<0.2); Total Protein Urine Random 44 mg/dL (<12)
== END 2024-01-21 09:32 | disposition home or self-care (01) ==
LOC: HO.LAB 09:31
PROVIDERS: Absent Provider Internal Medicine Nephrology; PCP Internal Medicine; Visit Provider Internal Medicine Rheumatology
DX: N18.2 Chronic kidney disease, stage 2 (mild) (principal); I10 Essential (primary) hypertension; R80.9 Proteinuria, unspecified; N20.0 Calculus of kidney
CPT/HCPCS: 36415; 80051; 82043; 82310; 82565; 82570; 83970; 84156; 84520

== ENCOUNTER 2024-01-24 14:33 | Outpatient (AMB) | payer BC, SELFPAY ==
--- NOTE | 2024-01-24 14:34 | A.OFFVIS_ITS ---
Intake Visit Reasons: EMB Results Allergies aspirin Allergy (Unknown, Verified 01/20/24 14:46) vomiting, GI upset HPI Comments Details: The patient schedule telehealth visit for follow-up to discuss the results of her abnormal uterine bleeding workup and options of treatment. The following workup was done.: H&H= 12.6/37.3 TSH, prolactin, hCG, GC and chlamydia were negative. FSH elevated 49.6, LH 14.2 Endometrial biopsy pathology showed the following: Endometrium, biopsy: - Superficial strips and fragments of benign endometrium; no atypia or hyperplasia identified. - Few strips of endocervical epithelium within normal limits Co testing was done was negative. Mammogram was BI-RADS 1. Pelvic ultrasound showed the following: The uterus measures 9.1 x 4.6 x 5.3 cm in longitudinal by AP by transverse dimension. The endometrial stripe measures 1.2 cm (patient currently menstruating). There is a punctate calcification along the posterior endometrium. The left ovary measures approximately 2.8 x 1.4 x 1.9 cm and contains a suspected approximately 1.5 cm corpus luteum. The right ovary measures approximately 2.2 x 0.8 x 1.6 cm and contains a 1.4 cm simple appearing cyst in addition to some punctate calcifications. There is a small amount of free fluid in the pelvis. 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 Mother No problems noted. 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 Cognitive needs: No Hearing needs: No Vision needs: Yes Female Reproductive History Menstrual Age of Menarche: 10 Review of Systems Const All systems reviewed & are unremarkable except as noted in HPI and below Reports as per HPI and Reports no additional complaints GI Reports no additional complaints Reports no additional complaints Telehealth Telehealth Telehealth Platform: Telephone Location of provider rendering services: practice address Location of patient: address on file Patient Identification confirmed using: Name, : Yes Telehealth method: video Patient verbally consented to treatment: Yes Patient verbally consented to billing insurance company: Yes Patient informed of any privacy concerns related to visit: Yes Assessment & Plan Assessment & Plan (1) Abnormal uterine bleeding (AUB): Comment: With SLE, hypertension, lupus nephritis and hypothyroidism FSH elevated Code(s): N93.9 - Abnormal uterine and vaginal bleeding, unspecified Category: Medical Plan: Discussed with the patient the results of the work up done and options of mahogany tment including expectant management, Mirena IUD, endometrial ablation and hysterectomy. All pros, cons, risks and benefits if each option was discussed with the patient and the patient decided to think about it and get back to us. Instructions given the patient to schedule a follow-up appointment in few weeks. All questions answered the patient verbalized understanding. I spent a total of 20 minutes reviewing the chart, talking to the patient via video and documenting in the medical record. Coding Level of Care Code Tele Est Pt Level 3 (81819) Diagnoses Abnormal uterine bleeding (AUB) N93.9
== END 2024-01-24 15:14 | disposition home or self-care (01) ==
LOC: HO.HWS 14:33
PROVIDERS: PCP Internal Medicine; Visit Provider Obstetrics & Gynecology
DX: N93.9 Abnormal uterine and vaginal bleeding, unspecified (principal)
CPT/HCPCS: 99213

== ENCOUNTER 2024-02-23 13:34 | Outpatient (REF) | payer BC, SELFPAY ==
--- NOTE | ~2024-02-23 | US_ITS ---
EXAMINATION: US PELVIS TRANSABDOMINAL AND TRANSVAGINAL HISTORY: N83.209 - Unspecified ovarian cyst, unspecified side COMPARISON: Comparison is made with the prior examination dated 12/02/2023. TECHNIQUE: Transabdominal and endovaginal real-time 2D freeman-scale ultrasound was performed. Color Doppler was also performed. FINDINGS: Uterus: The uterus is normal in size, measuring 7.4 x 3.7 x 3.6 cm. There is a tiny 3 mm myometrial cyst. Myometrium has otherwise normal echotexture. No fibroids are identified. Endometrium: The endometrial stripe measures 6 mm in thickness. A tiny endometrial calcification is again noted. Right ovary: The right ovary measures 2.0 x 1.0 x 1.5 cm. The right ovary is normal in size and echotexture. There is a 9 x 6 x 7 mm cyst adjacent to the right ovary consistent with a paraovarian cyst. Left ovary: The left ovary measures 0.5 x 1.3 x 1.2 cm. The left ovary is normal in size and echotexture. Color Doppler analysis of the bilateral ovarian arteries and veins are normal. Pelvic fluid: There is a small amount of fluid in the cul-de-sac.. US/US pelvic and transvaginal IMPRESSION: 9 x 6 x 7 mm right paraovarian cyst. Electronically signed by: Gary Nieves MD 02/25/2024 10:15 AM EST
== END 2024-02-23 13:35 | disposition home or self-care (01) ==
LOC: HO.US 13:34
PROVIDERS: PCP Internal Medicine; Visit Provider Obstetrics & Gynecology
DX: N83.209 Unspecified ovarian cyst, unspecified side (principal)
CPT/HCPCS: 76830; 76856

== ENCOUNTER → 2024-02-23 13:37 | Outpatient (BNV) | payer BC, SELFPAY | PROVIDERS: PCP Internal Medicine; Visit Provider Radiology Diagnostic Radiology | DX: N83.291 Other ovarian cyst, right side (principal) | CPT/HCPCS: 76830; 76856 ==

== ENCOUNTER 2024-02-28 09:09 | Outpatient (AMB) | payer BC, SELFPAY ==
[2024-02-28 09:52] VITALS: BP 122/82; PULSE 94; TEMP 36.8; O2SAT 99; BMI 29.3
--- NOTE | 2024-02-28 09:52 | MHC.OFFWIV ---
Intake Vital Signs 02/28/24 09:52 Height 5 ft Weight 150 lb BMI 29.3 BP 122/82 Blood Pressure Location Lt brachial Position Sitting Pulse 94 Pulse Source Pulse Oximeter Temp 98.2 F Temp Source Oral Pulse Oximetry (%) 99 Intake Visit Reasons: EP ? shingles Intake Note: Pt is here today c/o Lt upper inner thigh rash and mid lower abdomin rash feels like a burning sensation Patient Tobacco Use Status: Former Tobacco user Allergies aspirin Allergy (Unknown, Verified 02/28/24 09:53) vomiting, GI upset HPI HPI Comments History of Present Illness Details History of Present Illness - The patient is a 48-year-old female presenting with a rash on her thigh and suprapubic area. - Symptoms began 5 days ago and included a rash that worsened after the application of hot compresses. - By 4 days ago, the rash spread to the back of the thigh, featuring burning and itching. - Initially thought to be ingrown hairs, the rash was treated with topical ointments including Hydrocortisone. - The patient had used gabapentin and has some at home, which was previously prescribed for nerve pain. Physical Exam General: Cooperative, healthy appearing, comfortable, no acute distress and well developed Orientation: Patient oriented x3 Limitations: No limitations Head: Normal to inspection Ears: Hearing grossly normal bilaterally Nose: Normal external nose present Face and sinus: Normal facial exam Eyes: Appearance normal, both eyes and all related structures Neck: Normal visual inspection and Yes full ROM Respiratory: Normal respiratory effort and able to speak in complete sentences. Skin: pinpoint scabs on posterior left thigh and 5 small areas of wounds with erythematous base in suprapubic area, no signs of infection noted, no drainage Neuro: Patient oriented x3 Extremities: Normal to inspection [facility] Medical History Well woman exam Foraminal stenosis of cervical region Radiculitis of left cervical region History of pericarditis Kidney stones Other specified hypothyroidism COVID-19 virus infection Cervical radiculopathy Chronic constipation Acute pericarditis Joint pain in fingers of right hand Myositis Hypothyroid SLE (systemic lupus erythematosus) Pericardial effusion Dysplasia of cervix, low grade ([place]TE 1) 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 Mother No problems noted. 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 Cognitive needs: No Hearing needs: No Vision needs: Yes Female Reproductive History Menstrual Age of Menarche: 10 Review of Systems Const All systems reviewed & are unremarkable except as noted in HPI and below Physical Exam Vital Signs: Last Vital Signs Temp 98.2 F 02/28/24 09:52 Pulse 94 02/28/24 09:52 BP 122/82 02/28/24 09:52 Pulse Ox 99 02/28/24 09:52 BMI result Body Mass Index 29.3 Assessment & Plan Assessment & Plan (1) Shingles outbreak: Code(s): B02.9 - Zoster without complications Qualifiers: Herpes zoster complications: without complications Qualified Code(s): B02.9 - Zoster without complications Plan: Plan The primary diagnosis for this visit is Herpes Zoster, or shingles. Since the onset of the condition was over the recommended timeframe for antiviral treatment, the focus shifted to pain management through the use of gabapentin, which the patient already possesses. Starting with 100 mg per dose, the dosage can be adjusted upward for nighttime as needed. Alternative topical management was recommended with the use of Aquaphor healing ointment, emphasizing the exclusion of Hydrocortisone to avoid potential skin irritation. The patient was advised to maintain cleanliness and dryness of the affected area to prevent secondary infection. Too far into outbreak to start antiviral with any efficacy. Patient was informed and verbally consented to the use of an ambient scribe for clinic note documentation during this visit. Coding Level of Care Code Est Pt Level 3 (69787) Diagnoses Herpes zoster without complication B02.9 Herpes zoster complications: without complications
== END 2024-02-28 10:49 | disposition home or self-care (01) ==
PROVIDERS: PCP Internal Medicine; Visit Provider Physician Assistant
DX: B02.9 Zoster without complications (principal)

== ENCOUNTER → 2024-02-28 09:09 | Outpatient (BNVA) | payer BC, SELFPAY | PROVIDERS: PCP Internal Medicine; Visit Provider Physician Assistant ==

== ENCOUNTER 2024-03-08 14:19 | Outpatient (AMB) | payer BC, SELFPAY ==
--- NOTE | 2024-03-08 14:28 | A.OFFVIS_ITS ---
Intake Visit Reasons: 3m follow up Intake Note: Patient is Present for Follow Up Urology Medication: Antibiotic Allergies: Blood Thinners: Allergies aspirin Allergy (Unknown, Verified 03/08/24 20:35) vomiting, GI upset Medication List - Last Reconciled 03/08/24 by KATELYNN Cantu-ROSANGELA acetaminophen (Tylenol) 650 mg (2 x 325 mg) PO Q6H PRN cetirizine 10 mg PO DAILY colchicine 0.6 mg PO DAILY 90 days fluticasone propionate 50 mcg/actuation 2 sprays intranasal BID gabapentin 300 mg PO BID 30 days gabapentin 100 mg PO DAILY hydroxychloroquine 200 mg PO DAILY Lactobacillus acidophilus (Probiotic Gold Acidophilus) 1,000 mmu cells PO DAILY leg brace (Knee Support Brace) As directed levothyroxine 100 mcg PO DAILY 90 days losartan 50 mg PO BID meclizine 25 mg PO DAILY PRN 30 days omeprazole 40 mg (2 x 20 mg) PO DAILY 30 days pyridoxine (vitamin B6) 100 mg PO DAILY 90 days sennosides-docusate sodium 8.6-50 mg (Senokot-S) 1 tab-cap PO BEDTIME 90 days HPI Comments Details: Nery is a very pleasant 48-year-old female patient of Dr. Alejandra. She has a past medical history of myositis, hypothyroidism, systemic lupus erythmatosus, urinary tract infection, nephrolithiasis, lupus nephritis, pericarditis associated with systemic lupus, and hypertension. She presents to the office today for a follow up of her nephrolithiasis and complex renal cysts. In discussion with the patient today she reports to be doing and feeling well. She denies having had any bothersome urinary issues or concerns since her last office visit here. Previous workup has included renal ultrasound 10/08 right kidney with no lesions, calculi, or hydronephrosis. Left kidney with 5 mm nonobstructing lower pole calculus. There is no hydronephrosis. 3.1 cm lower pole cyst is again noted which is stable per radiology report. In office urinalysis results reviewed with the patient today 2+ proteinuria however this is patient's baseline given her history of lupus nephritis. PH 5.5. We did discuss importance of adequate hydration relation to nephrolithiasis as well as overall health and well-being. She denies urinary urgency, urinary frequency, incontinence, nocturia, hematuria, dysuria, changes to urinary stream, fever, flank pain, and or chills. She is happy with her current voiding parameters. When asked she reports compliance with vitamin B6 as prescribed. She otherwise offers no other issues or concerns at this time. Nephrolithiasis Recurrent nephrolithiasis 08/05 presented to emergency department with right-sided flank pain Imaging - 07/05 CT scan left 2.4 cm renal cysts, 6 mm distal right ureteric stone with mild hydroureteronephrosis, 6 mm right renal stone - 09/04 renal ultrasound 6 mm stone in renal pelvis - 09/06 renal ultrasound no stone right, left side complex renal cyst -04/10 CT Urogram no stone on the right, left side complex renal cysts with 5 mm stone left lower pole. -08/08 renal ultrasound 3.3 cm left lower pole renal cysts with septations. Interventions - 08/05 right ureteroscopy laser lithotripsy Stone analysis - unknown Therapeutic plan - on B6 - surveillance imaging [facility] Medical History Well woman exam Foraminal stenosis of cervical region Radiculitis of left cervical region History of pericarditis Kidney stones Other specified hypothyroidism COVID-19 virus infection Cervical radiculopathy Chronic constipation Acute pericarditis Joint pain in fingers of right hand Myositis Hypothyroid SLE (systemic lupus erythematosus) Pericardial effusion Dysplasia of cervix, low grade ([place] 1) 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 Mother No problems noted. 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 Cognitive needs: No Hearing needs: No Vision needs: Yes Female Reproductive History Menstrual Age of Menarche: 10 Review of Systems Const Reports as per HPI Eyes Reports no additional complaints ENT Reports no additional complaints Card Reports no additional complaints Resp Reports no additional complaints GI Reports no additional complaints Reports as per HPI Musc Reports no additional complaints Neuro Reports no additional complaints Psych Reports no additional complaints Endo Reports no additional complaints Physical Exam Const General: cooperative, healthy appearing, comfortable, no acute distress, well developed, alert and awake Orientation/consciousness: patient oriented x3 Limitations: no limitations HEENT Head: Yes normal to inspection, Yes normocephalic and Yes atraumatic Ears: hearing grossly normal bilaterally Eyes General: appearance normal, both eyes and all related structures Neck Neck: Yes normal visual inspection and Yes trachea midline Chest Chest palpation & inspection: normal inspection of the chest Resp Effort & Inspection: normal respiratory effort and able to speak in complete sentences Cardio Rate: regular rate GI Inspection: Yes normal to inspection General: Yes no CVA tenderness Back/Spine/Pelvis Back: no CVA tenderness Skin General skin exam: no rashes or lesions noted Neuro General: patient oriented x3 Extrem General: Yes normal to inspection Psych Appearance: grossly normal and well kempt Mental Status: mental status grossly normal Speech and movement: Normal speech and movement present and Clear speech present Affect: normal affect Attitude: cooperative Thought process: Normal thought process present Thought content: Normal thought content present Insight: Fair insight present (Psych) Judgement: Fair judgement present (Psych) Results AMB Urinalysis, Automated UA Leukoctes 0 Deshaun/uL Last Edit by YARELY Cortez on 03/08/24 14:50 UA Nitrite Negative Last Edit by YARELY Cortez on 03/08/24 14:50 UA Urobilinogen 0.2 mg/dL Last Edit by YARELY Cortez on 03/08/24 14:5 0 UA Protein 100 mg/dL Last Edit by YARELY Cortez on 03/08/24 14:50 UA pH 5.5 Last Edit by YARELY Cortez on 03/08/24 14:50 UA Blood 10 Partha/uL Last Edit by YARELY Cortez on 03/08/24 14:50 UA Specific [place] 1.030 Last Edit by Lilibeth Tony, RMA on 03/08/24 14: 50 UA Ketone Negative Last Edit by Lilibeth Tony RMA on 03/08/24 14:50 UA Bilirubin 0 mg/dL Last Edit by Lilibeth Tony, RMA on 03/08/24 14:50 UA Glucose 0 mg/dL Last Edit by Lilibeth Tony, A on 03/08/24 14:50 Results Reviewed Results Reviewed: Laboratory Last Values Urine pH (Auto) 5.5 03/08/24 14:49 Specific [place] (Auto) 1.030 03/08/24 14:49 Urine Protein (Auto) 100 mg/dL 03/08/24 14:49 Glucose (UA)(Auto) 0 mg/dL 03/08/24 14:49 Urine Ketones (Auto) Negative 03/08/24 14:49 Urine Blood (Auto) 10 Partha/uL 03/08/24 14:49 Urine Nitrite (Auto) Negative 03/08/24 14:49 Urine Bilirubin (Auto) 0 mg/dL 03/08/24 14:49 Urine Urobilinogen (Auto) 0.2 mg/dL 03/08/24 14:49 Leukocyte Esterase (Auto) 0 Deshaun/uL 03/08/24 14:49 Assessment & Plan Assessment & Plan (1) Renal calculi: Code(s): N20.0 - Calculus of kidney Category: Medical (2) Renal cyst: Code(s): N28.1 - Cyst of kidney, acquired Category: Medical Plan In office urinalysis results reviewed with the patient today; as noted above. Patient currently denies any bothersome urinary issues or concerns. She reports be happy with current voiding parameters. Discussed and stressed the importance of increase in hydration related to nephrolithiasis as well as overall health and well-being Continue to follow-up with Nephrology for proteinuria. Will obtain renal ultrasound in 6 months Follow-up in 6 months; or sooner with any issues, concerns, and or questions. Orders: Orders AMB Urinalysis Automated Today Z13.9 - Encounter for screening, unspecified US renal BI 6 Months N20.0 - Calculus of kidney Patient Instructions: The patient had an opportunity to ask questions regarding the treatment plan. All questions were answered. Physical exam, labs, and imaging were discussed and reviewed in detail. As well as risks, benefits, and discussion of treatment choices. No major barriers to understanding were identified. The patient expressed understanding and agreement with the above treatment plan. The patient was made aware they should contact our office by phone for worsening of their current condition, the appearance of new symptoms, or with any questions or concerns. Compliance is encouraged with any medications and follow up testing that is ordered. It is a privilege to be allowed the opportunity to participate in? your urological care.? Again, if you have any questions or concerns If you have any questions or concerns please do not hesitate to contact me. The office is [phone]. This note is constructed using voice recognition software. While every effort has been made to ensure accuracy wood borer errors may have been included. Yours sincerely, ELIAZAR Cantu Coding Level of Care Code Est Pt Level 3 (38216) Diagnoses Renal calculi N20.0 Renal cyst N28.1
--- OUTSIDE RECORDS SUMMARY | 2024-03-08 16:41 | XMS_ITS | Encounter Summary ---
Author Organization [facility] Address [address] [facility] [address] [place] [address] Phone Care Team Providers Care Auditing Clerk Name Role Phone Bryant Alejandra MD Primary Care Provider [phone] Reason for Visit * Reason Comments Med Refill Encounter Details Date Type Department Care Team (Late st Contact Info) Description 01/14/2021 Refill [facility] [address] [place] [address] Irwin Barrientos MD Social History Tobacco Use Types Packs/Day Years Used Date Smoking Tobacco: Never Smokeless Tobacco: Never Alcohol Use Standard Drinks/Week Comments Yes 0 (1 standard drink = 0.6 oz pur e alcohol) Comments Unknown Sex and Gender Information Value Date Recorded Sex Assigned at Not on file Legal Sex Female 5:09 PM EST Gender Identity Not on file Sexual Orientation Not on file documented as of this encounter Plan of Treatment Upcoming Encounters Date Type Department Care Team (Late st Contact Info) Description 01/18/2025 2:00 PM EST Office Visit [facility] [address] [phone] Lilibeth Berrios ARNP [address] [phone] documented as of this encounter Visit Diagnoses Not on filedocumented in this encounter Care Teams Auditing Clerk Relationship Specialty Start Date End Date Bryant Alejandra MD [address] [place] [address] PCP - General Internal Medicine 01/19/24 documented as of this encounter
--- OUTSIDE RECORDS SUMMARY | 2024-03-08 16:41 | XMS_ITS | Clinical Summary ---
Author Organization [facility] Address [address] [place] [phone] Phone Care Team Providers Care Stock Sorter Name Role Phone Bryant Alejandra MD Primary Care Provider [phone] Allergies Active Allergy Reactions Criticality Noted Date Comments Aspirin Other (see comments) 09/10/2020 Medications Cetirizine HCl (ZyrTEC ALLERGY) 10 MG capsule Take 1 capsule by mouth Active colchicine 0.6 MG tablet Take 1 tablet by mouth 1 (one) time each day Active hydroxychloroqu ine (PLAQUENIL) 200 MG tablet Take 1 tablet by mouth 1 (one) time each day Active cyanocobalamin (VITAMIN B-12) 100 MCG tablet Take 50 mcg by mouth 1 (one) time each day Active levocetirizine (XYZAL) 5 MG tablet Take 5 mg by mouth 1 (one) time each day in the evening Active fluticasone (FLONASE) 50 MCG/ACT nasal spray Administer 1 spray into each nostril 1 (one) time each day Active levothyroxine (SYNTHROID, LEVOTHROID) 25 MCG tablet Take 25 mcg by mouth 1 (one) time each day Active gabapentin (NEURONTIN) 300 MG capsule Take 300 mg by mouth 2 (two) times a day if needed Active Cholecalciferol (Vitamin D) 25 MCG (1000 UT) tablet Take 1 tablet by mouth 1 (one) time each day Active losartan (COZAAR) 50 MG tabletIndicatio ns:Chronic kidney disease, stage 2 (mild),Proteinu kati, not otherwise specified,Hyper tension Take 1 tablet (50 mg total) by mouth 1 (one) time each day 30 tablet 11 Active Active Problems Problem Noted Date Diagnosed Date Vitamin D deficiency, not otherwise specified Overview (01/19/2024): On oral supplementation Assessment & Plan (01/19/2024 2:33 PM EST): Monitor Vit D 25 level annually Hypertension 05/20/2023 Overview (05/20/2023): Follow low NA diet Avoid NSAIDs/OTC Decongestant medications Exercise, weight loss for healthy BMI Target BP <120/80 Assessment & Plan (01/19/2024 2:32 PM EST): Blood pressure optimally controlled c/w Losartan 50 mg QD - Rx renewed for pt for 1 yr No Edema No medication changes made Assessment & Plan (05/20/2023 11:45 PM EDT): Blood pressure well controlled, 118/80, HR 85 here today Taking single treatment Losartan 50 mg QD Lifestyle modifications encouraged as listed above Chronic kidney disease, stage 2 (mild) Overview (01/19/2024): Related to SLE Glomerulonephritis On Losartan Avoid Nephrotoxins Monitor Renal panel and urine prot/creat ratio Assessment & Plan (01/19/2024 2:33 PM EST): Stable Creatinine Normal Lytes Rechecking Renal panel with associated lab work Assessment & Plan (05/20/2023 11:39 PM EDT): Stable Creat 0.8, eGFR 81 as of 04/19/2023 Keep urine protein under good control On ARB Losartan 50 mg QD Rechecking Urine alb/creat ratio Nephrolithiasis 09/15/2020 Overview (01/19/2024): Followed by [facility] Assessment & Plan (01/19/2024 2:31 PM EST): Scheduled for repeat Renal US with Urology Maintain good oral hydration Assessment & Plan (05/20/2023 11:46 PM EDT): Continue follow-up with Urology for imaging and management Disorder of kidney and/or ureter 09/10/2020 History of calculus of kidney 09/10/2020 Proteinuria 09/10/2020 Assessment & Plan (01/19/2024 2:35 PM EST): Stable UA/CR c/w Losartan Maintain good BP control Assessment & Plan (05/20/2023 11:42 PM EDT): On ARB Losartan 50 mg QD Checking urine alb/creat ratio, last was mildly elevated at 0,38 as of 02/2021 Consider increasing ARB dose if urine protein not improved/worsened Renal stone 09/10/2020 Resolved Problems Problem Noted Date Diagnosed Date Resolved Date 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 [address] [place] [phone] Lilibeth Berrios ARNP Chronic kidney disease, stage 2 (mild) (Primary Dx); Proteinuria, not otherwise specified; Nephrolithiasis; Hypertension; Vitamin D deficiency, not otherwise specified from Last 3 Months Family History Medical History Relation Comments Cancer Mother GM Relation Status Comments Mother Social History Tobacco Use Types Packs/Day Years Used Date Smoking Tobacco: Some Days Cigarettes Smokeless Tobacco: Never Tobacco Cessation:Ready to Q uit: Not Asked; Counseling Given: Not Answered Alcohol Use Standard Drinks/Week Comments Yes 0 (1 standard drink = 0.6 oz pur e alcohol) Comments Unknown Sex and Gender Information Value Date Recorded Sex Assigned at Not on file Legal Sex Female 5:09 PM EST Gender Identity Not on file Sexual Orientation Not on file Last Filed Vital Signs Vital Sign Reading Time Taken Comments Blood Pressure 118/80 01/19/2024 2:04 PM EST Pulse 77 01/19/2024 2:04 PM EST Temperature - - Respiratory Rate - - Oxygen Saturation - - Inhaled Oxygen Concentration - - Weight 68 kg (150 lb) 01/19/2024 2:04 PM EST Height 152.4 cm (5') 03/14/2020 12:00 PM EST Body Mass Index 29.29 03/14/2020 12:00 PM EST Plan of Treatment Upcoming Encounters Date Type Department Care Team (Late st Contact Info) Description 01/18/2025 2:00 PM EST [facility] [address] [phone] Lilibeth Berrios ARNP [address] [phone] Health Maintenance Due Date Last Done Comments Breast Cancer Screening 1975 Pneumococcal Vaccine: Pediat rics (0 to 5 Years) and At-Risk Patients (6 to 64 Years) (1 of 2 - PCV) 11/27/1979 Hepatitis B Vaccine (1 of 3 - 19+ 3-dose series) 11/26 Colorectal Cancer Screening: Annual FOBT 2022 Colorectal Cancer Screening: Colonoscopy 2022 Colorectal Cancer Screening: Sigmoidoscopy 2022 Influenza Vaccine (#1) 2023 Insurance [facility] Care Teams Stock Sorter Relationship Specialty Start Date End Date Bryant Alejandra MD [address] [place] [id number] PCP - General Internal Medicine 01/19/24
== END 2024-03-08 15:12 | disposition home or self-care (01) ==
PROVIDERS: PCP Internal Medicine; Visit Provider Nurse Practitioner Family
DX: N20.0 Calculus of kidney (principal); N28.1 Cyst of kidney, acquired; Z13.9 Encounter for screening, unspecified
CPT/HCPCS: 99213

== ENCOUNTER → 2024-03-08 14:19 | Outpatient (BNVA) | payer BC, SELFPAY | PROVIDERS: PCP Internal Medicine; Visit Provider Nurse Practitioner Family | DX: N20.0 Calculus of kidney (principal); N28.1 Cyst of kidney, acquired | CPT/HCPCS: 81003 ==

== ENCOUNTER 2024-03-28 09:11 | Outpatient (AMB) | payer BC, SELFPAY ==
--- NOTE | 2024-03-28 10:00 | MHC.OFFWIV ---
Intake Vital Signs 03/28/24 10:06 Weight 147 lb BP 110/70 Blood Pressure Location Lt brachial Position Sitting Pulse 112 H Pulse Source Pulse Oximeter Temp 99 F Temp Source Oral Pulse Oximetry (%) 98 Oxygen Delivery Method Room Air Intake Visit Reasons: EP-cough, chill, fever, vomiting, chest pain Intake Note: Patient here for cough, chills, fever, vomiting and chest pain that started Wednesday. Patient Tobacco Use Status: Former Tobacco user Allergies aspirin Allergy (Unknown, Verified 03/28/24 10:07) vomiting, GI upset Do you need a note to return to daycare/school/sports/work: Yes HPI HPI Comments History of Present Illness Details This is a 48-year-old female with a past medical history of lupus, hypothyroidism, cardiomyopathy, hypertension and pericarditis presenting for evaluation of cough, nausea, vomiting, fevers and chest tightness that she has had since Wednesday. Patient states that she had chest tightness ?all day yesterday? that was improved last night with Tylenol. Patient reports left-sided chest tightness at this time. Patient has been taking DayQuil and Sudafed without relief of her symptoms. Patient denies having any sick contacts. [facility] Medical History (Reviewed 03/08/24 @ 20:[address] [facility]) Well woman exam Foraminal stenosis of cervical region Radiculitis of left cervical region History of pericarditis Kidney stones Other specified hypothyroidism COVID-19 virus infection Cervical radiculopathy Chronic constipation Acute pericarditis Joint pain in fingers of right hand Myositis Hypothyroid SLE (systemic lupus erythematosus) Pericardial effusion Dysplasia of cervix, low grade ([place] 1) 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 Mother No problems noted. 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 Cognitive needs: No Hearing needs: No Vision needs: Yes Female Reproductive History Menstrual Age of Menarche: 10 Review of Systems Const All systems reviewed & are unremarkable except as noted in HPI and below Reports chills, Reports fatigue, Reports fever(s), Denies headache(s), Reports malaise and Reports weakness Eyes Reports no additional complaints ENT Reports no additional complaints and Denies headache(s) Card Reports chest pain, Denies irregular heart rhythm, Denies dyspnea and Denies dyspnea on exertion Resp Reports chest congestion, Reports cough, Denies dyspnea and Denies dyspnea on exertion GI Reports no additional complaints Reports no additional complaints Musc Reports no additional complaints Skin/Breast Reports system reviewed and no additional complaints, except as documented Neuro Reports no additional complaints, Denies headache(s) and Reports weakness Psych Reports no additional complaints Endo Reports no additional complaints and Reports fatigue Iván/Lymph Reports no additional complaints Aller/Immun Reports no additional complaints Physical Exam Vital Signs: Last Vital Signs Temp 99 F 03/28/24 10:06 Pulse 112 H 03/28/24 10:06 BP 110/70 03/28/24 10:06 Pulse Ox 98 03/28/24 10:06 Oxygen Delivery Method Room Air 03/28/24 10:06 Patient is afebrile and tachycardic. Const General: cooperative, comfortable, no acute distress, well developed, alert, awake, Physically active and ill appearing; No healthy appearing Nutritional Appearance: average body habitus Orientation/consciousness: patient oriented x3 Limitations: no limitations HEENT Head: Yes normal to inspection and Yes normocephalic Ears: hearing grossly normal bilaterally, external ears normal, TM's normal bilaterally and EAC's normal General nose exam: Normal external nose present Face and sinus: Yes normal facial exam and Yes sinuses nontender Mouth: Normal oral and palatal mucosa present Throat: Yes posterior oropharynx normal and No postnasal drainage Eyes General: appearance normal, both eyes and all related structures Neck Lymphatic: no lymphadenopathy noted Resp Effort & Inspection: normal respiratory effort, able to speak in complete sentences, no audible wheezes, no cough and not tachypneic Auscultation: clear to auscultation bilaterally Cardio Rate: tachycardic (120bpm) Rhythm: regular rhythm Neuro General: patient oriented x3 Psych Appearance: grossly normal Mental Status: mental status grossly normal Insight: Good insight present (Psych) Judgement: Good judgement present (Psych) Assessment & Plan Assessment & Plan (1) Acute upper respiratory infection: Code(s): J06.9 - Acute upper respiratory infection, unspecified Plan: SARS panel is ordered and results are pending. (2) Chest pain: Comment: Patient has had chest pain since Wednesday. EKG is deferred and the patient will go to the emergency department directly from urgent care. Code(s): R07.9 - Chest pain, unspecified Qualifiers: Chest pain type: unspecified Qualified Code(s): R07.9 - Chest pain, unspecified Plan: Given this patient's history pericarditis coupled with current chest pain, patient will be transferred to the emergency department. Patient will drive her private vehicle. Expect is called to the ED at [facility] to LASHELL Tay at 10:24 a.m.. Plan Tylenol, increase clear fluids daily. Orders: Orders SARS-CoV2/FLU/RSV Today J06.9 - Acute upper respiratory infection, unspecified Coding Level of Care Code Est Pt Level 4 (97529) Diagnoses Acute upper respiratory infection J06.9 Chest pain R07.9 Chest pain type: unspecified Time Spent (min) 25
[2024-03-28 10:06] VITALS: BP 110/70; PULSE 112; TEMP 37.2; O2SAT 98
--- OUTSIDE RECORDS SUMMARY | 2024-03-28 10:17 | XMS_ITS | Clinical Summary ---
Author Organization [facility] Address [address] [place] [phone] Phone Care Team Providers Care Oil Rig Roughneck Name Role Phone Bryant Alejandra MD Primary Care Provider [phone] Allergies Active Allergy Reactions Criticality Noted Date [...] Office Visit [facility] [address] [place] [phone] Lilibeth Berrios ARNP Chronic kidney disease, [...] [facility] [address] [address] Lilibeth Berrios ARNP [address] [phone] Health Maintenance Due Date Last [...] Sigmoidoscopy 2022 Influenza Vaccine (#1) 2023 Insurance [facility] Care Teams Oil Rig Roughneck Relationship Specialty Start Date End Date Bryant Alejandra MD [address] [place] [phone] PCP - General Internal Medicine 01/19/24
--- OUTSIDE RECORDS SUMMARY | 2024-03-28 10:17 | XMS_ITS | Encounter Summary ---
Author Organization [facility] Address [address] [facility] [address] [place] [address] Phone Care Team Providers Care Plant Cytologist Name Role Phone Bryant Alejandra MD Primary Care Provider [phone] Reason for Visit * Reason Comments Med Refill Encounter Details Date Type Department Care Team (Late st Contact Info) Description 01/14/2021 Refill [facility] [address] [place] [address] Irwin Barrientos MD Social History [...] Visit [facility] [address] [address] Lilibeth Berrios ARNP [address] [phone] documented as of this encounter Visit Diagnoses Not on filedocumented in this encounter Care Teams Plant Cytologist Relationship Specialty Start Date End Date Bryant Alejandra MD [address] [place] [address] PCP - General Internal Medicine 01/19/24 documented as of this encounter
== END 2024-03-28 10:24 | disposition home or self-care (01) ==
PROVIDERS: PCP Internal Medicine; Visit Provider Physician Assistant
DX: J06.9 Acute upper respiratory infection, unspecified (principal); R07.9 Chest pain, unspecified

== ENCOUNTER → 2024-03-28 09:11 | Outpatient (BNVA) | payer BC, SELFPAY | PROVIDERS: PCP Internal Medicine ==

== ENCOUNTER 2024-03-28 10:45 | Emergency (ER) | payer BC, SELFPAY ==
--- NOTE | ~2024-03-28 | XR_ITS ---
EXAMINATION: XR CHEST CLINICAL INFORMATION: COughin. Pnuemonia COMPARISON: August 28, 2023. TECHNIQUE: Frontal view of the chest was obtained. FINDINGS: No consolidation, pleural effusion or pneumothorax. Cardiomediastinal silhouette size is normal. Osseous structures are intact. XR/XR chest 1V IMPRESSION: No acute airspace disease. Stable chest. Electronically signed by: Olu Jones MD 03/28/2024 12:44 PM [facility]
--- NOTE | 2024-03-28 10:47 | ECG_ITS ---
Test Reason : CHEST PAIN Blood Pressure : */* mmHG Vent. Rate : 115 BPM Atrial Rate : 115 BPM P-R Int : 124 ms QRS Dur : 112 ms QT Int : 340 ms P-R-T Axes : 46 -18 16 degrees QTcB Int : 470 ms Sinus tachycardia Right bundle branch block Abnormal ECG When compared with ECG of 02-Dec-2023 01:20, No significant change was found Referred By: Generic ED Physician Electronically Signed By: PHILIP AUSTIN MD
[2024-03-28 11:29] VITALS: BP 140/83; PULSE 122; RESP 18; TEMP 37.1; O2SAT 99; BMI 24.9
--- NOTE | 2024-03-28 11:36 | ED.GENADULT ---
HPI - General Adult General Chief complaint: General Medical Stated complaint: Chest pain, vomiting Time Seen by Provider: 03/28/24 21:35 Source: patient Mode of arrival: ambulatory Limitations: no limitations History of Present Illness ED Provider: HPI narrative: Patient with cough mucopurulent phlegm running nose nausea and vomiting for last few days no complaining of pain in the left side of chest radiating to the back patient has had labs and EKG done prior to my evaluation which showed normal EKG was negative for ischemic changes 2 sets of cardiac enzymes normal patient has been having right cough for last few days with occasional mucopurulent phlegm Related Data Home Medications ?Medication ?Instructions ?Recorded ?Confirmed losartan 50 mg tablet 50 mg PO BID 12/13/19 03/08/24 fluticasone propionate 50 2 spray intranasal BID 06/17/20 03/08/24 mcg/actuation nasal spray,suspension cetirizine 10 mg tablet 10 mg PO DAILY 08/12/21 03/08/24 hydroxychloroquine 200 mg tablet 200 mg PO DAILY 05/28/23 03/08/24 Previous Rx's ?Medication ?Instructions ?Recorded omeprazole 20 mg capsule,delayed 40 mg (2 x 20 mg) PO DAILY 30 days 10/26/22 release #60 caps pyridoxine (vitamin B6) 100 mg 100 mg PO DAILY 90 days #90 tabs 04/23/23 tablet gabapentin 300 mg capsule 300 mg PO BID 30 days #60 caps 04/30/23 Lactobacillus acidophilus 1 1,000 mmu cells PO DAILY #90 caps 05/28/23 billion cell capsule (Probiotic Gold Acidophilus) sennosides 8.6 mg-docusate sodium 1 tab-cap PO BEDTIME constipation 05/28/23 50 mg tablet (Senokot-S) 90 days #90 tabs acetaminophen 325 mg capsule 650 mg (2 x 325 mg) PO Q6H PRN 08/28/23 (Tylenol) pain #30 caps colchicine 0.6 mg capsule 0.6 mg PO DAILY 90 days #90 caps 11/24/23 levothyroxine 100 mcg tablet 100 mcg PO DAILY 90 days #90 tabs 12/16/23 leg brace (Knee Support Brace) #1 ea 02/29/24 gabapentin 100 mg capsule 100 mg PO DAILY #90 caps 03/15/24 meclizine 25 mg tablet 25 mg PO DAILY PRN Insomnia 90 03/16/24 days #90 tabs albuterol sulfate 90 mcg/actuation 2 puff inhalation Q6H PRN 03/28/24 aerosol inhaler shortness of breath or wheezing #8.5 grams azithromycin 250 mg tablet 250 mg PO DAILY 4 days #4 tabs 03/28/24 (Zithromax) benzonatate 200 mg capsule 200 mg PO TID PRN cough #30 caps 03/28/24 prednisone 20 mg tablet 40 mg (2 x 20 mg) PO DAILY #10 tabs 03/28/24 Allergies Allergy/AdvReac Type Severity Reaction Status Date / Time aspirin Allergy Unknown vomiting, Verified 03/28/24 11:33 GI upset Review of Systems Review of Systems: Yes all other systems are reviewed and are negative [facility] Past Medical History Medical History Well woman exam Foraminal stenosis of cervical region Radiculitis of left cervical region History of pericarditis Kidney stones Other specified hypothyroidism COVID-19 virus infection Cervical radiculopathy Chronic constipation Acute pericarditis Joint pain in fingers of right hand Myositis Hypothyroid SLE (systemic lupus erythematosus) Pericardial effusion Dysplasia of cervix, low grade (BERNADETTE 1) 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 Mother No problems noted. Social History Social History Household Members: Significant Other and Children Housing: House Are you a primary clinical care coordinator to a significant other at home: No Do you presently have visiting nurse or other home services: No Alcohol intake: never Patient Tobacco Use Status: Former Tobacco user Tobacco use type: Cigarette Cigarette Packs Per Day: 0 Smoked in Last 30 Days: No e-Cigarette/Vaping Use: Currently Using Use of substances other than those prescribed or required for medical reasons: No Substance Use Type: Marijuana Advance Directives: No Advance Directives Information Provided: Yes Do you have a plan to hurt others: No Plan Patient : No service: No Current occupational status: employed 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 Oriented X3. No acute distress. ENT: Pharynx normal. Oral Mucosa moist Neck: Normal inspection. Neck supple. CVS: Normal heart rate and rhythm. Pulses normal. Respiratory: No respiratory distress. Equal air entry bilateral, no wheezing/rales/rhonchi Abdomen: Soft and nontender. Bowel sounds are present, no mass palpable, no CVA tenderness Skin: Skin warm and dry. Normal skin color. Normal skin turgor. Extremities: No lower extremity edema. No calf tenderness Neuro: Oriented X 3. No motor deficit. No sensory deficit.No cerebellar signs , cranial nerves II-XII intact Course Course Course Narrative: 48-year-old female history of pericarditis presents to ED for coughing and chest pain only when she coughs. Patient was sent from primary care due to history of pericarditis. Patient denies any leg swelling or calf pain. Initial EKG negative for diffuse ST elevation. Labs chest x-ray SARs ordered. Medications Administered Discontinued Medications Generic Name Dose Route Start Last Admin Trade Name Freq PRN Reason Stop Dose Admin Albuterol Sulfate 2 puff 03/28/24 22:11 03/28/24 22:56 Albuterol Sulfate 90 Mcg 8 Gm Inhaler INHALE 03/28/24 22:12 2 puff ONCE ONE Administration Azithromycin 500 mg 03/28/24 22:11 03/28/24 22:56 Azithromycin 500 Mg Tablet PO 03/28/24 22:12 500 mg ONCE ONE Administration Prednisone 40 mg 03/28/24 22:11 03/28/24 22:56 Prednisone 20 Mg Tablet PO 03/28/24 22:12 40 mg ONCE ONE Administration Medical Decision Making Medical Decision Making [facility] Narrative: Patient has acute bronchitis cardiac workup negative atypical chest pain discharge patient Differential Diagnosis Differential Diagnoses: The differential diagnosis associated with the presentation includes Lab Data [facility] Lab Attestation statement: I reviewed the patient's lab results. 03/28/24 11:54 03/28/24 11:54 Labs: Lab Results 03/28/24 03/28/24 03/28/24 Range/Units 09:11 11:54 11:54 WBC 3.6 L (4.8-10.8) X10*3/uL RBC 4.80 (4.20-5.50) X10*6/uL Hgb 14.5 (12.0-16.0) g/dl Hct 42.1 (37.0-47.0) % MCV 87.7 (80.0-98.0) fL MCH 30.2 (27.0-33.0) pg MCHC 34.4 (31.0-35.0) g/dl RDW 12.9 (11.0-16.0) % Plt Count 176 (160-400) X10*3/uL MPV 10.9 (9.4-12.3) fL Immature Gran % (Auto) 0.3 (0.0-0.4) % Neut % (Auto) 71.8 (45-73) % Lymph % (Auto) 13.5 L (20-40) % Walker % (Auto) 13.0 H (2-11) % Eos % (Auto) 0.8 (0-4) % Baso % (Auto) 0.6 (0-2) % Lymph # (Auto) 0.5 L (1.2-4.9) X10*3/uL Walker # (Auto) 0.5 (0.1-1.2) X10*3/uL Eos # (Auto) 0.0 (0.0-0.4) X10*3/uL Baso # (Auto) 0.0 (0.0-0.2) X10*3/uL Abs Immat Gran (auto) 0.01 (0.00-0.03) X10*3/uL Absolute Neuts (auto) 2.6 (2.0-8.3) x10*3/uL Absolute Nucleated RBC 0.000 (0.0-0.012) X10*3/uL Nucleated RBC % (auto) 0.0 (0.0-0.2) /100WBC ESR 19 (0-20) MM/HR PT 12.0 (10.9-12.4) SEC INR 1.0 (0.9-1.1) APTT Cancelled 31.9 Sodium 140 (135-145) mmol/L Potassium 3.6 (3.3-5.1) mmol/L Chloride 109 H (96-108) mmol/L Carbon Dioxide 25 (22-29) mmol/L Anion Gap 10 L (12-20) BUN 14 (9-16) mg/dL Creatinine 0.84 (0.5-1.4) mg/dL Estim Creat Clear Calc 74.7 Estimated GFR > 60 Random Glucose 78 (60-115) mg/dL Calcium 9.1 (8.4-10.2) mg/dL Total Bilirubin 0.3 (0.0-1.0) mg/dL AST 31 (5-31) U/L ALT 27 (0-31) U/L Alkaline Phosphatase 66 (39-117) U/L Troponin I High Sens 18.1 H (<3.5-17.0) ng/L C-Reactive Protein 1.42 H (< or = 0.50) mg/dL B-Natriuretic Peptide < 10 (<100) pg/mL Total Protein 8.0 (6.5-8.0) g/dL Albumin 4.1 (3.5-5.0) g/dL Influenza Type A (PCR) Cancelled NEGATIVE Influenza Type B (PCR) Cancelled NEGATIVE RSV RNA Qual (PCR) Cancelled NEGATIVE SARS-CoV-2 RNA (RT-PCR) Cancelled NEGATIVE 03/28/24 Range/Units 19:29 WBC (4.8-10.8) X10*3/uL RBC (4.20-5.50) X10*6/uL Hgb (12.0-16.0) g/dl Hct (37.0-47.0) % MCV (80.0-98.0) fL MCH (27.0-33.0) pg MCHC (31.0-35.0) g/dl RDW (11.0-16.0) % Plt Count (160-400) X10*3/uL MPV (9.4-12.3) fL Immature Gran % (Auto) (0.0-0.4) % Neut % (Auto) (45-73) % Lymph % (Auto) (20-40) % Walker % (Auto) (2-11) % Eos % (Auto) (0-4) % Baso % (Auto) (0-2) % Lymph # (Auto) (1.2-4.9) X10*3/uL Walker # (Auto) (0.1-1.2) X10*3/uL Eos # (Auto) (0.0-0.4) X10*3/uL Baso # (Auto) (0.0-0.2) X10*3/uL Abs Immat Gran (auto) (0.00-0.03) X10*3/uL Absolute Neuts (auto) (2.0-8.3) x10*3/uL Absolute Nucleated RBC (0.0-0.012) X10*3/uL Nucleated RBC % (auto) (0.0-0.2) /100WBC ESR (0-20) MM/HR PT (10.9-12.4) SEC INR (0.9-1.1) APTT Sodium (135-145) mmol/L Potassium (3.3-5.1) mmol/L Chloride (96-108) mmol/L Carbon Dioxide (22-29) mmol/L Anion Gap (12-20) BUN (9-16) mg/dL Creatinine (0.5-1.4) mg/dL Estim Creat Clear Calc Estimated GFR Random Glucose (60-115) mg/dL Calcium (8.4-10.2) mg/dL Total Bilirubin (0.0-1.0) mg/dL AST (5-31) U/L ALT (0-31) U/L Alkaline Phosphatase (39-117) U/L Troponin I High Sens 21.4 H (<3.5-17.0) ng/L C-Reactive Protein (< or = 0.50) mg/dL B-Natriuretic Peptide (<100) pg/mL Total Protein (6.5-8.0) g/dL Albumin (3.5-5.0) g/dL Influenza Type A (PCR) Influenza Type B (PCR) RSV RNA Qual (PCR) SARS-CoV-2 RNA (RT-PCR) Independent Interpretation I performed an independent interpretation of an: EKG Interpretation: Sinus tachycardia heart rate 115 right bundle-branch block no acute ST-T changes no acute ischemia Discharge Plan Discharge Clinical Impression: Acute bronchitis Patient Disposition: Home, Self-Care Instructions: Acute Bronchitis (ED) Additional Instructions: Take antibiotics, prednisone and inhaler as advised Drink plenty of fluid Follow with your PCP if not better Prescriptions: New benzonatate 200 mg capsule 200 mg PO TID PRN (Reason: cough) Qty: 30 0RF prednisone 20 mg tablet 40 mg PO DAILY Qty: 10 0RF albuterol sulfate 90 mcg/actuation HFA aerosol inhaler 2 puff inhalation Q6H PRN (Reason: shortness of breath or wheezing) Qty: 8.5 0RF azithromycin [Zithromax] 250 mg tablet 250 mg PO DAILY 4 Days Qty: 4 0RF Rx Instructions: start on day 2 of therapy No Action gabapentin 300 mg capsule 300 mg PO BID 30 Days Qty: 60 0RF colchicine 0.6 mg capsule 0.6 mg PO DAILY 90 Days Qty: 90 3RF levothyroxine 100 mcg tablet 100 mcg PO DAILY 90 Days Qty: 90 0RF (DME) Knee Support Brace Misc See Rx Instructions .Route Qty: 1 0RF Rx Instructions: As directed gabapentin 100 mg capsule 100 mg PO DAILY Qty: 90 0RF meclizine 25 mg tablet 25 mg PO DAILY PRN (Reason: Insomnia) 90 Days Qty: 90 3RF fluticasone propionate 50 mcg/actuation spray,suspension 2 spray intranasal BID cetirizine 10 mg tablet 10 mg PO DAILY acetaminophen [Tylenol] 325 mg capsule 650 mg PO Q6H PRN (Reason: pain) Qty: 30 0RF hydroxychloroquine 200 mg tablet 200 mg PO DAILY sennosides-docusate sodium [Senokot-S] 8.6-50 mg tablet 1 tab-cap PO BEDTIME 90 Days Qty: 90 0RF Probiotic Gold Acidophilus 1 billion cell capsule 1,000 mmu cells PO DAILY Qty: 90 0RF losartan 50 mg tablet 50 mg PO BID omeprazole 20 mg capsule,delayed release(DR/EC) 40 mg PO DAILY 30 Days Qty: 60 5RF pyridoxine (vitamin B6) 100 mg tablet 100 mg PO DAILY 90 Days Qty: 90 1RF Stand Alone Forms: Work/School Release Interventions: ED Discharge Assessment Last Done: 03/28/24 23:03 Discharge Date/Time: 03/28/24 23:12 Print Language: Lao
[2024-03-28 12:00] LABS: MANUAL DIFF FLAG NO
[2024-03-28 12:03] LABS: Basophils Percent Auto 0.6 % (0-2); Eosinophils Percent Auto 0.8 % (0-4); Hematocrit 42.1 % (37.0-47.0); Hemoglobin 14.5 g/dl (12.0-16.0); Imm Gran Abs Auto 0.01 X10*3/uL (0.00-0.03); Imm Gran Pct Auto 0.3 % (0.0-0.4); Lymphocytes Absolute Auto 0.5 X10*3/uL (1.2-4.9); Lymphocytes Percent Auto 13.5 % (20-40); Mean Corpuscular HGB Conc 34.4 g/dl (31.0-35.0); Mean Corpuscular Hemoglobin 30.2 pg (27.0-33.0); Mean Corpuscular Volume 87.7 fL (80.0-98.0); Mean Platelet Volume 10.9 fL (9.4-12.3); Monocytes Absolute Auto 0.5 X10*3/uL (0.1-1.2); Neutrophils Absolute Auto 2.6 x10*3/uL (2.0-8.3); Neutrophils Percent Auto 71.8 % (45-73); Platelet Count 176 X10*3/uL (160-400); Red Cell Distribution Width 12.9 % (11.0-16.0); White Blood Count 3.6 X10*3/uL (4.8-10.8)
[2024-03-28 12:35] LABS: Alanine Aminotransferase 27 U/L (0-31); Albumin Level 4.1 g/dL (3.5-5.0); Alkaline Phosphatase 66 U/L (39-117); Anion Gap 10 (12-20); Aspartate Amino Transferase 31 U/L (5-31); Bilirubin Total 0.3 mg/dL (0.0-1.0); Blood Urea Nitrogen 14 mg/dL (9-16); C Reactive Protein 1.42 mg/dL (< or = 0.50); Calcium 9.1 mg/dL (8.4-10.2); Carbon Dioxide 25 mmol/L (22-29); Chloride 109 mmol/L (96-108); Creatinine Clr Calc Pharmacy 74.7; Estimated Glomerular Filt Rate > 60; Glucose Random 78 mg/dL (60-115); Potassium 3.6 mmol/L (3.3-5.1); Sodium 140 mmol/L (135-145)
[2024-03-28 12:37] LABS: B Type Natriuretic Peptide < 10 pg/mL (<100)
[2024-03-28 12:39] LABS: Troponin-I High Sensitivity 18.1 ng/L (<3.5-17.0)
[2024-03-28 12:42] LABS: Influenza A PCR NEGATIVE (Negative); Influenza B PCR NEGATIVE (Negative); Resp Syncy Virus RNA Qual PCR NEGATIVE (Negative); SARS COV2 PCR INHOUSE NEGATIVE (Negative)
[2024-03-28 12:51] LABS: Erythrocyte Sedimentation Rate 19 MM/HR (0-20)
--- OUTSIDE RECORDS SUMMARY | 2024-03-28 13:24 | XMS_ITS | Encounter Summary ---
Author Organization [facility] Address [address] [facility] [address] [place] [address] Phone Care Team Providers Care General Car Supervisor Yard Name Role Phone Bryant Alejandra MD Primary Care Provider [phone] Reason for Visit * Reason Comments Med Refill Encounter Details Date Type Department Care Team (Late st Contact Info) Description 01/14/2021 Refill [facility] [address] [place] [address] Irwin Barrientos MD Social History [...] Visit [facility] [address] [phone] Lilibeth Berrios ARNP [address] [phone] documented as of this encounter Visit Diagnoses Not on filedocumented in this encounter Care Teams General Car Supervisor Yard Relationship Specialty Start Date End Date Bryant Alejandra MD [address] [place] [address] PCP - General Internal Medicine 01/19/24 documented as of this encounter
--- OUTSIDE RECORDS SUMMARY | 2024-03-28 13:24 | XMS_ITS | Clinical Summary ---
Author Organization [facility] Address [address] [place] [phone] Phone Care Team Providers Care Psychiatric Social Worker Supervisor Name Role Phone Bryant Alejandra MD Primary Care Provider [phone] Allergies Active Allergy Reactions Criticality Noted Date [...] Office Visit [facility] [address] [place] [phone] Lilibeth Berrios ARNP Chronic kidney disease, [...] [facility] [address] [address] Lilibeth Berrios ARNP [address] [phone] Health Maintenance Due Date Last [...] Sigmoidoscopy 2022 Influenza Vaccine (#1) 2023 Insurance [facility] Care Teams Psychiatric Social Worker Supervisor Relationship Specialty Start Date End Date Bryant Alejandra MD [address] [place] [phone] PCP - General Internal Medicine 01/19/24
[2024-03-28 13:48] LABS: Partial Thromboplastin Time 31.9 SEC (26.0-36.8)
[2024-03-28 19:52] LABS: Troponin-I High Sensitivity 21.4 ng/L (<3.5-17.0)
[2024-03-28 20:37] VITALS: BP 135/80; PULSE 106; RESP 16; TEMP 37.1; O2SAT 98
[2024-03-28 22:26] VITALS: BP 116/83; PULSE 99; RESP 16; TEMP 36.4; O2SAT 97
[2024-03-28] MEDS: predniSONE 20 MG TABLET 40 MG PO (22:56)
[2024-03-28] MEDS: Albuterol Sulfate 90 MCG 8 GM INHALER 2 PUFF INHALE (22:56)
[2024-03-28] MEDS: Azithromycin 500 MG TABLET PO (22:56)
[2024-03-28 23:03] VITALS: BP 116/83; PULSE 99; RESP 16; TEMP 36.4; O2SAT 97
== END 2024-03-28 23:12 | disposition home or self-care (01) ==
PROVIDERS: Physician Assistant; Emergency Provider Internal Medicine; PCP Internal Medicine
DX: J40 Bronchitis, not specified as acute or chronic (principal); R07.89 Other chest pain; R11.2 Nausea with vomiting, unspecified; R06.02 Shortness of breath; Z03.818 Encounter for observation for suspected exposure to other biological agents ruled out; Z79.899 Other long term (current) drug therapy
CPT/HCPCS: 0241U; 36415; 71045; 80053; 83880; 84484; 85025; 85610; 85652; 85730; 86140; 93005; 99284

== ENCOUNTER → 2024-03-28 10:47 | Outpatient (BNV) | payer BC, SELFPAY | PROVIDERS: PCP Internal Medicine; Visit Provider Internal Medicine Cardiovascular Disease | DX: I45.10 Unspecified right bundle-branch block (principal); R00.0 Tachycardia, unspecified | CPT/HCPCS: 93010 ==

== ENCOUNTER → 2024-03-28 11:34 | Outpatient (BNV) | payer BC, SELFPAY | PROVIDERS: PCP Internal Medicine; Visit Provider Radiology Diagnostic Radiology | DX: J18.9 Pneumonia, unspecified organism (principal) | CPT/HCPCS: 71045 ==

== ENCOUNTER 2024-04-06 12:24 | Outpatient (AMB) | payer BC, SELFPAY ==
--- NOTE | 2024-04-06 12:24 | A.OFFVIS_ITS ---
Intake Visit Reasons: TV Ultrasound follow up Allergies aspirin Allergy (Unknown, Verified 03/28/24 11:33) vomiting, GI upset HPI Comments Details: The patient is scheduled tele health visit for repeat pelvic ultrasound follow- up regarding ovarian cyst identified on pelvic ultrasound done in 12/08. Pelvic ultrasound done in 03/11 showed the following: Uterus: The uterus is normal in size, measuring 7.4 x 3.7 x 3.6 cm. There is a tiny 3 mm myometrial cyst. Myometrium has otherwise normal echotexture. No fibroids are identified. Endometrium: The endometrial stripe measures 6 mm in thickness. A tiny endometrial calcification is again noted. Right ovary: The right ovary measures 2.0 x 1.0 x 1.5 cm. The right ovary is normal in size and echotexture. There is a 9 x 6 x 7 mm cyst adjacent to the right ovary consistent with a paraovarian cyst. Left ovary: The left ovary measures 0.5 x 1.3 x 1.2 cm. The left ovary is normal in size and echotexture. Color Doppler analysis of the bilateral ovarian arteries and veins are normal. Pelvic fluid: There is a small amount of fluid in the cul-de-sac. In addition the patient has been complaining over the last few months of leakage of urine upon coughing, laughing or lifting heavy object associated with urinary frequency no dysuria or nocturia no urge incontinence PFSH Medical History Well woman exam Foraminal stenosis of cervical region Radiculitis of left cervical region History of pericarditis Kidney stones Other specified hypothyroidism COVID-19 virus infection Cervical radiculopathy Chronic constipation Acute pericarditis Joint pain in fingers of right hand Myositis Hypothyroid SLE (systemic lupus erythematosus) Pericardial effusion Dysplasia of cervix, low grade (BERNADETTE 1) 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 Mother No problems noted. 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 Cognitive needs: No Hearing needs: No Vision needs: Yes Female Reproductive History Menstrual Age of Menarche: 10 Review of Systems Const All systems reviewed & are unremarkable except as noted in HPI and below Reports as per HPI and Reports no additional complaints GI Reports no additional complaints Reports no additional complaints Telehealth Telehealth Telehealth Platform: Telephone Location of provider rendering services: practice address Location of patient: address on file Patient Identification confirmed using: Name, : Yes Telehealth method: video Patient verbally consented to treatment: Yes Patient verbally consented to billing insurance company: Yes Patient informed of any privacy concerns related to visit: Yes Minutes spent on Phone/Video with Pt.: 5 Assessment & Plan Assessment & Plan (1) Ovarian cyst: Code(s): N83.209 - Unspecified ovarian cyst, unspecified side Category: Medical Plan: Discussed with the patient ultrasound findings showing the previously identified left ovarian cyst suspected as colpo luteum has resolved. Explained to the patient the finding of a 9 mm paraovarian small cyst simple in nature. The patient was instructed to call if symptoms recur. All questions were answered the patient verbalized understanding. (2) Urine incontinence: Code(s): R32 - Unspecified urinary incontinence Category: Medical Plan: Discussed with the patient the different types of Urine incontinence, stress urinary incontinence, intrinsic sphincter deficiency, overactive bladder and its work up. We will refer to Urology. All questions answered, the patient verbalized understanding. I spent a total of 20 minutes reviewing the chart, talking to the patient via video and documenting in the medical record. Orders: Referrals Urology Referral R32 - Unspecified urinary incontinence Coding Level of Care Code Tele Est Pt Level 3 (67428) Diagnoses Ovarian cyst N83.209 Urine incontinence R32
--- OUTSIDE RECORDS SUMMARY | 2024-04-06 13:22 | XMS_ITS | Clinical Summary ---
Author Organization [facility] Address [address] [place] [phone] Phone Care Team Providers Care Director Of Sales Marketing Name Role Phone Bryant Alejandra MD Primary Care Provider [phone] Allergies Active Allergy Reactions Criticality Noted Date [...] Office Visit [facility] [address] [place] [phone] Lilibeth Berrios ARNP Chronic kidney disease, [...] [facility] [address] [address] Lilibeth Berrios ARNP [address] [address] Health Maintenance Due Date Last [...] Sigmoidoscopy 2022 Influenza Vaccine (#1) 2023 Insurance [facility] Care Teams Director Of Sales Marketing Relationship Specialty Start Date End Date Bryant Alejandra MD [address] [place] [phone] PCP - General Internal Medicine 01/19/24
--- OUTSIDE RECORDS SUMMARY | 2024-04-06 13:22 | XMS_ITS | Encounter Summary ---
Author Organization [facility] [place] Address [address] [facility] [address] [place] [address] Phone Care Team Providers Care Ship Runner Name Role Phone Bryant Alejandra MD Primary Care Provider [phone] Reason for Visit * Reason Comments Med Refill Encounter Details Date Type Department Care Team (Late st Contact Info) Description 01/14/2021 Refill [facility] [address] [place] [address] Irwin Barrientos MD Social History [...] Visit [facility] [address] [address] Lilibeth Berrios ARNP [address] [phone] documented as of this encounter Visit Diagnoses Not on filedocumented in this encounter Care Teams Ship Runner Relationship Specialty Start Date End Date Bryant Alejandra MD [address] [place] [address] PCP - General Internal Medicine 01/19/24 documented as of this encounter
== END 2024-04-06 13:52 | disposition home or self-care (01) ==
LOC: HO.HWS 12:24
PROVIDERS: PCP Internal Medicine; Visit Provider Obstetrics & Gynecology
DX: N83.209 Unspecified ovarian cyst, unspecified side (principal); R32 Unspecified urinary incontinence
CPT/HCPCS: 99213

== ENCOUNTER → 2024-04-06 12:24 | Outpatient (BNVA) | payer BC, SELFPAY | PROVIDERS: PCP Internal Medicine; Visit Provider Obstetrics & Gynecology ==

== ENCOUNTER 2024-04-20 13:12 | Outpatient (REF) | payer BC, SELFPAY ==
--- OUTSIDE RECORDS SUMMARY | 2024-04-20 17:10 | XMS_ITS | Encounter Summary ---
Author Organization [facility] Address [address] [facility] [address] [place] [address] Phone Care Team Providers Care Human Capital Consultant Name Role Phone Bryant Alejandra MD Primary Care Provider [phone] Reason for Visit * Reason Comments Med Refill Encounter Details Date Type Department Care Team (Late st Contact Info) Description 01/14/2021 Refill [facility] [address] [place] [address] Irwin Barrientos MD Social History [...] Visit [facility] [address] [phone] Lilibeth Berrios ARNP [address] [phone] documented as of this encounter Visit Diagnoses Not on filedocumented in this encounter Care Teams Human Capital Consultant Relationship Specialty Start Date End Date Bryant Alejandra MD [address] [place] [address] PCP - General Internal Medicine 01/19/24 documented as of this encounter
--- OUTSIDE RECORDS SUMMARY | 2024-04-20 17:10 | XMS_ITS | Clinical Summary ---
Author Organization [facility] Address [address] [place] [phone] Phone Care Team Providers Care Inspector Precision Name Role Phone Bryant Alejandra MD Primary Care Provider [phone] Allergies Active Allergy Reactions Criticality Noted Date [...] Visit [facility] [address] [place] [phone] Lilibeth Berrios, WIRELESS INTERNET INSTALLER [address] [phone] Health Maintenance Due Date Last Done Comments [...] Sigmoidoscopy 2022 Influenza Vaccine (#1) [address] [place] [address] Care Teams Inspector Precision Relationship Specialty Start Date End Date Bryant Alejandra MD [address] [place] [address] PCP - General Internal Medicine 01/19/24
[2024-04-20 17:53] LABS: MANUAL DIFF FLAG NO
[2024-04-20 18:03] LABS: Basophils Percent Auto 0.5 % (0-2); Eosinophils Absolute Auto 0.1 X10*3/uL (0.0-0.4); Eosinophils Percent Auto 0.9 % (0-4); Hematocrit 38.3 % (37.0-47.0); Hemoglobin 12.8 g/dl (12.0-16.0); Imm Gran Abs Auto 0.01 X10*3/uL (0.00-0.03); Imm Gran Pct Auto 0.2 % (0.0-0.4); Lymphocytes Absolute Auto 2.4 X10*3/uL (1.2-4.9); Lymphocytes Percent Auto 41.2 % (20-40); Mean Corpuscular HGB Conc 33.4 g/dl (31.0-35.0); Mean Corpuscular Hemoglobin 29.5 pg (27.0-33.0); Mean Corpuscular Volume 88.2 fL (80.0-98.0); Mean Platelet Volume 11.8 fL (9.4-12.3); Monocytes Absolute Auto 0.4 X10*3/uL (0.1-1.2); Monocytes Percent Auto 6.6 % (2-11); Neutrophils Absolute Auto 2.9 x10*3/uL (2.0-8.3); Neutrophils Percent Auto 50.6 % (45-73); Platelet Count 236 X10*3/uL (160-400); Red Blood Count 4.34 X10*6/uL (4.20-5.50); White Blood Count 5.8 X10*3/uL (4.8-10.8)
[2024-04-21 09:11] LABS: HBS Num1 34.48 mIU/mL (0-7.99); HBc Num1 0.15 S/CO (0.00-0.79); HBsAGNum1 0.44 S/CO (0.00-0.99); Hepatitis B Core Antibody Nonreactive (Nonreactive); Hepatitis B Surface Antigen Negative (Negative); ~HepC Num1 0.13 S/CO (0.00-0.79); ~Hepatitis B Surface Antibody REACTIVE (Nonreactive); ~Hepatitis C Antibody Nonreactive (Nonreactive)
[2024-04-21 15:24] LABS: Complement C3 161 mg/dL (83-193)
[2024-04-21 21:34] LABS: Anti DNA DS Antibody <1 IU/mL
[2024-04-24 09:39] LABS: TS Negative Control Passed; TS Panel A 0; TS Panel B 0; TS Positive Control Passed; TSpotTB Negative (Negative)
[2024-04-25 13:08] LABS: ANA Pattern 2 Nuclear, Speckled; Anti Nuclear Antibody Screen POSITIVE (NEGATIVE)
== END 2024-04-20 13:13 | disposition home or self-care (01) ==
LOC: HO.HKASLDS 13:12
PROVIDERS: PCP Internal Medicine; Visit Provider Internal Medicine Rheumatology
DX: M32.9 Systemic lupus erythematosus, unspecified (principal)
CPT/HCPCS: 36415; 85025; 86038; 86039; 86160; 86225; 86481; 86704; 86706; 86803; 87340

== ENCOUNTER 2024-04-20 13:12 | Outpatient (AMB) | payer BC, SELFPAY ==
--- NOTE | 2024-04-20 13:19 | MHC.OFFVIS ---
Vital Signs 04/20/24 13:20 Height 5 ft 4 in Weight 151 lb 7.321 oz BMI 26.0 BP 150/110 H Blood Pressure Location Rt brachial Position Sitting Pulse 88 Pulse Source Pulse Oximeter Pulse Oximetry (%) 99 Oxygen Delivery Method Room Air Intake Visit Reasons: Follow Up 3mo Intake Note: Patient presents for follow up on lupus.Pt states that she does have vertigo right now Allergies aspirin Allergy (Unknown, Verified 04/20/24 13:19) vomiting, GI upset HPI HPI Follow Up 3mo: Details: She continues to have left knee pain and swelling. Hard to walk. She uses a brace that she bought with hinges. Insurance did not cover hinged knee brace. Physical therapy caused increased pain. She did not receive a call from physical therapy for management of suspected lateral epicondylitis. She has been wearing elbow support bands. No mouth sores. She was dx with bronchitis. She has dyspnea. No chest pain or pleurisy. Denies cough or fevers or urinary symptoms. [facility] Medical History Well woman exam Foraminal stenosis of cervical region Radiculitis of left cervical region History of pericarditis Kidney stones Other specified hypothyroidism COVID-19 virus infection Cervical radiculopathy Chronic constipation Acute pericarditis Joint pain in fingers of right hand Myositis Hypothyroid SLE (systemic lupus erythematosus) Pericardial effusion Dysplasia of cervix, low grade (BERNADETTE 1) 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 Mother No problems noted. 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 Good respiratory effort Skin: No lesions seen MSK: Tender to palpate bilateral lateral epicondyles. She did not have pain with resisted wrist extension. No synovitis of any joints present. No tenderness of small joints in her hands, wrists, shoulders. Left knee is tender on palpation along joint line without effusion. Good range of motion of upper extremities and lower extremities. Results Reviewed Results Reviewed: Labs from March 2024 reviewed. Assessment & Plan Assessment & Plan (1) SLE (systemic lupus erythematosus): Comment: She has had recurrent pericarditis managed by cardiology with colchicine. She was recently treated for bronchitis with a course of prednisone. Her respiratory status is improving. I had ordered labs to assess for systemic activity from SLE last visit but patient did not have them done. She is advised to have labs done today. 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 Repeat biopsy 2001 revealed no active lupus nephritis with ongoing proteinuria. She also has recurrent pericarditis previously treated with pericardial window due pericardial effusion with most recent episode treated with colchicine with relief. She also has Raynaud's phenomenon, which is controlled conservatively. We will obtain labs for disease and drug monitoring this visit. Code(s): M32.9 - Systemic lupus erythematosus, unspecified Category: Medical Qualifiers: Systemic lupus erythematosus organ involvement: pericarditis Systemic lupus erythematosus type: unspecified Qualified Code(s): M32.12 - Pericarditis in systemic lupus erythematosus Plan: Labs for disease and drug monitoring ordered. Increase hydroxychloroquine 200 mg daily due to recurrent pericarditis. HCQ surveillance exam VF 10/05/2023, OCT baseline 07/08/2022. She will follow-up with cardiology for for monitoring of recurrent pericarditis -continue colchicine per Cardiology. She will also follow-up with Nephrology due to history of lupus nephritis with proteinuria Return to clinic in 3 months I am requesting kidney biopsy results from [facility] requested (2) Left knee pain: Comment: Knee gives out on patient with uncontrolled pain. Failed physical therapy. She recently started bracing. Code(s): M25.562 - Pain in left knee Category: Medical Qualifiers: Chronicity: chronic Qualified Code(s): M25.562 - Pain in left knee; G89.29 - Other chronic pain Plan: Continue left knee bracing X-ray left knee ordered She will avoid oral NSAIDs advice from production support analyst She will take Tylenol as needed for pain Apply diclofenac gel 1% to affected area every 4-6 hours as needed Ice knee twice a day Return to clinic in 3 months (3) Lateral epicondylitis of both elbows: Comment: Suspected. Uncontrolled pain. We discussed conservative management. Discussed appropriate use of elbow support bands. Code(s): M77.11 - Lateral epicondylitis, right elbow; M77.12 - Lateral epicondylitis, left elbow Category: Medical Plan: She agreed to PT. PT reordered Wear elbow support bands with activity Return to clinic in 3 months (4) Raynaud disease without gangrene: Comment: Controlled with conservative management Code(s): I73.00 - Raynaud's syndrome without gangrene Category: Medical Plan: Continue to wear gloves in the cold Return to clinic in 3 months Orders: Orders PT Evaluation and Treatment Today M77.11 - Lateral epicondylitis, right elbow, M77.12 - Lateral epicondylitis, left elbow XR knee LT 2V Today G89.29 - Other chronic pain, M25.562 - Pain in left knee Medications: New diclofenac sodium 1% apply to affected area every 4-6 hours PRN 2 grams topical QID 100 grams 5RF Changed From hydroxychloroquine 200 mg PO DAILY To hydroxychloroquine 300 mg (1.5 x 200 mg) PO DAILY 135 tabs 1RF 90 days Coding Level of Care Code Est Pt Level 4 (00870) Complex EM visit Add On G2211 Diagnoses Systemic lupus erythematosus (SLE) with pericarditis, unspecified SLE type M32.12 Systemic lupus erythematosus organ involvement: pericarditis Systemic lupus erythematosus type: unspecified Chronic pain of left knee M25.562; G89.29 Chronicity: chronic Lateral epicondylitis of both elbows M77.11; M77.12 Raynaud disease without gangrene I73.00
[2024-04-20 13:20] VITALS: BP 150/110; PULSE 88; O2SAT 99; BMI 26.0
--- OUTSIDE RECORDS SUMMARY | 2024-04-20 15:59 | XMS_ITS | Encounter Summary ---
Author Organization [facility] Address [address] [facility] [address] [place] [address] Phone Care Team Providers Care Envelope Sealer Operator Name Role Phone Bryant Alejandra MD Primary Care Provider [phone] Reason for Visit * Reason Comments Med Refill Encounter Details Date Type Department Care Team (Late st Contact Info) Description 01/14/2021 Refill [facility] [address] [place] [address] Irwin Barrientos MD Social History [...] [facility] [address] [phone] Lilibeth Berrios ARNP [address] [phone] documented as of this encounter Visit Diagnoses Not on filedocumented in this encounter Care Teams Envelope Sealer Operator Relationship Specialty Start Date End Date Bryant Alejandra MD [address] [place] [address] PCP - General Internal Medicine 01/19/24 documented as of this encounter
--- OUTSIDE RECORDS SUMMARY | 2024-04-20 15:59 | XMS_ITS | Clinical Summary ---
Author Organization [facility] Address [address] [place] [phone] Phone Care Team Providers Care Plant Wire Chief Name Role Phone Bryant Alejandra MD Primary Care Provider [phone] Allergies Active Allergy Reactions Criticality Noted Date [...] 0 02/26/2021 Systemic lupus erythematosus 09/10/2020 02/26/2021 Family History Medical History Relation Comments Cancer [...] Visit [facility] [address] [place] [phone] Lilibeth Berrios, ASSEMBLER TRIM [address] [phone] Health Maintenance Due Date Last Done Comments [...] Sigmoidoscopy 2022 Influenza Vaccine (#1) [address] [place] [address] [place] [address] Care Teams Plant Wire Chief Relationship Specialty Start Date End Date Bryant Alejandra MD [address] [place] [address] PCP - General Internal Medicine 01/19/24
== END 2024-04-20 13:59 | disposition home or self-care (01) ==
PROVIDERS: PCP Internal Medicine; Visit Provider Internal Medicine Rheumatology
DX: M32.12 Pericarditis in systemic lupus erythematosus (principal); M25.562 Pain in left knee; G89.29 Other chronic pain; M77.11 Lateral epicondylitis, right elbow; M77.12 Lateral epicondylitis, left elbow; I73.00 Raynaud's syndrome without gangrene
CPT/HCPCS: 99214

== ENCOUNTER 2024-04-27 15:28 | Outpatient (AMB) | payer BC, SELFPAY ==
--- NOTE | 2024-04-27 16:10 | AM.OFFWIN_ITS ---
Intake Vital Signs 04/27/24 16:11 Height 5 ft 4 in Weight 152 lb BMI 26.1 BP 120/80 Blood Pressure Location Rt brachial Position Sitting Pulse 105 H Pulse Source Pulse Oximeter Temp 98.2 F Temp Source Oral Pulse Oximetry (%) 98 Oxygen Delivery Method Room Air Intake Visit Reasons: EP Throat/ear Intake Note: Patient here for right ear pain and sore throat that has been present for 3 days. Patient Tobacco Use Status: Former Tobacco user Allergies aspirin Allergy (Unknown, Verified 04/27/24 16:12) vomiting, GI upset Do you need a note to return to daycare/school/sports/work: No HPI HPI Comments History of Present Illness Details 48 y/o female patient who presents to [facility] walk in clinic with c/o URI symptoms x 3 days. Pt reports cough, Sore-throat, headaches and right ear pain. [facility] Medical History (Updated 04/27/24 @ 16:23 by Maryanne Morales NP) Acute respiratory disease Well woman exam Foraminal stenosis of cervical region Radiculitis of left cervical region History of pericarditis Kidney stones Other specified hypothyroidism COVID-19 virus infection Cervical radiculopathy Chronic constipation Acute pericarditis Joint pain in fingers of right hand Myositis Hypothyroid SLE (systemic lupus erythematosus) Pericardial effusion Dysplasia of cervix, low grade (BERNADETTE 1) 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 Mother No problems noted. 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 Cognitive needs: No Hearing needs: No Vision needs: Yes Female Reproductive History Menstrual Age of Menarche: 10 Review of Systems Const All systems reviewed & are unremarkable except as noted in HPI and below Physical Exam Vital Signs: Last Vital Signs Temp 98.2 F 04/27/24 16:11 Pulse 105 H 04/27/24 16:11 BP 120/80 04/27/24 16:11 Pulse Ox 98 04/27/24 16:11 Oxygen Delivery Method Room Air 04/27/24 16:11 BMI result Body Mass Index 26.1 Const General: cooperative and no acute distress Nutritional Appearance: overweight Orientation/consciousness: patient oriented x3 HEENT Head: Yes normocephalic Ears: external ears normal and TM abnormal bulging bilateral and with fluid behind the TM bilateral General nose exam: Abnormal mucous membranes and turbinates present boggy and Nasal discharge present Face and sinus: Yes sinus tenderness Mouth: moist mucous membranes Throat: Yes uvula midline Resp Effort & Inspection: normal respiratory effort and able to speak in complete sentences Auscultation: clear to auscultation bilaterally, no crackles, no rales, no rhonchi and no wheezes Cardio Heart sounds: S1 normal heart sound present and S2 normal heart sound present Neuro General: patient oriented x3 Results AMB Rapid Strep AMB Rapid Strep Negative Last Edit by PAUL Gan on 04/27/24 16:24 Assessment & Plan Assessment & Plan (1) Acute respiratory disease: Code(s): J06.9 - Acute upper respiratory infection, unspecified Plan: Rapid Strep Negative Ordered SARs Fluid Behind TM - no infection present. Ordered Decongestant Acetaminophne for [ain relief. Rest and warm fluids with Honey. Orders: Orders AMB Rapid Strep Screen Today Z13.9 - Encounter for screening, unspecified SARS-CoV2/FLU/RSV Today J06.9 - Acute upper respiratory infection, unspecified Medications: New fluticasone propionate 50 mcg/actuation 2 sprays intranasal BID 16 grams 0RF J06.9 - Acute upper respiratory infection, unspecified benzonatate 200 mg (2 x 100 mg) PO BID 60 caps 0RF COUGH J06.9 - Acute upper respiratory infection, unspecified Changed From cetirizine 10 mg PO DAILY J06.9 - Acute upper respiratory infection, unspecified To cetirizine TAKE IT DIRECTED 10 mg PO DAILY 30 tabs 0RF J06.9 - Acute upper respiratory infection, unspecified Coding Level of Care Code Est Pt Level 4 (39718) Diagnoses Acute respiratory disease J06.9 Time Spent (min) 20
[2024-04-27 16:11] VITALS: BP 120/80; PULSE 105; TEMP 36.8; O2SAT 98; BMI 26.1
--- OUTSIDE RECORDS SUMMARY | 2024-04-27 19:02 | XMS_ITS | Encounter Summary ---
Author Organization [facility] Address [address] [facility] [address] [place] [address] Phone Care Team Providers Care Mainframe Analyst Name Role Phone Bryant Alejandra MD Primary Care Provider [phone] Reason for Visit * Reason Comments Med Refill Encounter Details Date Type Department Care Team (Late st Contact Info) Description 01/14/2021 Refill [facility] [address] [place] [address] Irwin Barrientos MD Social History [...] Visit [facility] [address] [phone] Lilibeth Berrios ARNP [address] [phone] documented as of this encounter Visit Diagnoses Not on filedocumented in this encounter Care Teams Mainframe Analyst Relationship Specialty Start Date End Date Bryant Alejandra MD [address] [place] [address] PCP - General Internal Medicine 01/19/24 documented as of this encounter
--- OUTSIDE RECORDS SUMMARY | 2024-04-27 19:02 | XMS_ITS | Clinical Summary ---
Author Organization [facility] Address [address] [place] [phone] Phone Care Team Providers Care Speech/Language Therapist Name Role Phone Bryant Alejandra MD Primary Care Provider [phone] Allergies Active Allergy Reactions Criticality Noted Date [...] Visit [facility] [address] [place] [phone] Lilibeth Berrios, DOUBLE CUT OFF SAW OPERATOR [address] [phone] Health Maintenance Due Date Last Done Comments [...] Sigmoidoscopy 2022 Influenza Vaccine (#1) [address] [place] [place] [address] Care Teams Speech/Language Therapist Relationship Specialty Start Date End Date Bryant Alejandra MD [address] [place] [address] PCP - General Internal Medicine 01/19/24
== END 2024-04-27 16:47 | disposition home or self-care (01) ==
PROVIDERS: PCP Internal Medicine; Visit Provider Nurse Practitioner Family
DX: Z13.9 Encounter for screening, unspecified (principal); J06.9 Acute upper respiratory infection, unspecified

== ENCOUNTER 2024-04-27 15:28 | Outpatient (REF) | payer BC, SELFPAY ==
--- OUTSIDE RECORDS SUMMARY | 2024-04-27 19:23 | XMS_ITS | Clinical Summary ---
Author Organization [facility] Address [address] [place] [phone] Phone Care Team Providers Care Log Handler Name Role Phone Bryant Alejandra MD Primary Care Provider [phone] Allergies Active Allergy Reactions Criticality Noted Date [...] Visit [facility] [address] [place] [phone] Lilibeth Berrios, ADMITTING CLERK [address] [phone] Health Maintenance Due Date Last Done Comments [...] Sigmoidoscopy 2022 Influenza Vaccine (#1) [address] [place] [address] [address] Care Teams Log Handler Relationship Specialty Start Date End Date Bryant Alejandra MD [address] [place] [address] PCP - General Internal Medicine 01/19/24
--- OUTSIDE RECORDS SUMMARY | 2024-04-27 19:23 | XMS_ITS | Encounter Summary ---
Author Organization [facility] Address [address] [facility] [address] [place] [address] Phone Care Team Providers Care Aboriginal Community Council Member Name Role Phone Bryant Alejandra MD Primary Care Provider [phone] Reason for Visit * Reason Comments Med Refill Encounter Details Date Type Department Care Team (Late st Contact Info) Description 01/14/2021 Refill [facility] [address] [place] [address] Irwin Barrientos MD Social History [...] the [facility] [address] [phone] Lilibeth Berrios ARNP [address] [phone] documented as of this encounter Visit Diagnoses Not on filedocumented in this encounter Care Teams Aboriginal Community Council Member Relationship Specialty Start Date End Date Bryant Alejandra MD [address] [place] [address] PCP - General Internal Medicine 01/19/24 documented as of this encounter
[2024-04-28 12:44] LABS: Influenza A PCR NEGATIVE (Negative); Influenza B PCR NEGATIVE (Negative); Resp Syncy Virus RNA Qual PCR NEGATIVE (Negative); SARS COV2 PCR INHOUSE NEGATIVE (Negative)
== END 2024-04-27 15:29 | disposition home or self-care (01) ==
LOC: HO.LAB 15:28
PROVIDERS: Nurse Practitioner Family; PCP Internal Medicine
DX: J06.9 Acute upper respiratory infection, unspecified (principal)
CPT/HCPCS: 0241U; 87880

== ENCOUNTER 2024-05-09 09:46 | Outpatient (AMB) | payer BC, SELFPAY ==
[2024-05-09 09:49] VITALS: BP 120/80; PULSE 110; TEMP 36.6; O2SAT 100; BMI 26.0
--- NOTE | 2024-05-09 09:49 | A.OFFPC_ITS ---
Vital Signs 05/09/24 09:49 Height 5 ft 4 in Weight 151 lb 4 oz BMI 26.0 BP 120/80 Blood Pressure Location Lt brachial Position Sitting Pulse 110 H Pulse Source Pulse Oximeter Temp 98 F Temp Source Oral Pulse Oximetry (%) 100 Oxygen Delivery Method Room Air Intake Visit Reasons: 4 months f/up Allergies aspirin Allergy (Unknown, Verified 05/09/24 09:49) vomiting, GI upset Medication List - Last Reconciled 05/09/24 by Bryant Alejandra MD acetaminophen (Tylenol) 650 mg (2 x 325 mg) PO Q6H PRN albuterol sulfate 90 mcg/actuation 2 puffs inhalation Q6H PRN cetirizine 10 mg PO DAILY colchicine 0.6 mg PO DAILY 90 days diclofenac sodium 1% 2 grams topical QID fluticasone propionate 50 mcg/actuation 2 sprays intranasal BID gabapentin 100 mg PO DAILY gabapentin 300 mg PO BID 30 days hydroxychloroquine 300 mg (1.5 x 200 mg) PO DAILY 90 days leg brace (Knee Support Brace) As directed levothyroxine 100 mcg PO DAILY 90 days losartan 50 mg PO BID meclizine 25 mg PO DAILY PRN 90 days omeprazole 40 mg (2 x 20 mg) PO DAILY 30 days pyridoxine (vitamin B6) 100 mg PO DAILY 90 days sennosides-docusate sodium 8.6-50 mg (Senokot-S) 1 tab-cap PO BEDTIME 90 days Tobacco use date assessed: 05/09/24 Dental Screening Dental Screen Date: 05/09/24 Did you have a dental visit in the last 12 months?: Yes Did you have a dental problem in the last 6 months where you did not have access to dental care?: No Was dental information given to patient?: Patient has dentist HPI 4 months f/up HPI Details The patient is a 48-year-old female with a history of lupus, chronic pericarditis, nephropathy, allergies, hypothyroidism, hypertension, chronic vertigo, chronic GERD, chronic constipation, presenting with exacerbation of vertigo and evaluation of musculoskeletal pain. - The patient reports daily vertigo pers istent despite the use of meclizine and associates it with previous episodes of shingles and bronchitis. - Describes unilateral musculoskeletal p ain in the left arm and back, amidst longstanding knee issues, with concurrent left leg pain - MRI of cervical spine couple of years ago reveals mild multilevel cervical spondylosis, mild to moderate foraminal narrowing at C4-C5, and several small disc protrusions, indicating potential for a pinched nerve. - Expresses concern about tennis elbow, with a plan for physical therapy. - Reports urinary incontinence associate d with coughing or sneezing. Medications - Meclizine 25 mg for vertigo - Cetirizine for allergies - Colchicine for chronic pericarditis - Gabapentin 300 mg at night and 100 mg in the morning - Hydroxychloroquine for systemic lupus erythematosus - Levothyroxine 100 mcg for hypothyroidi sm - Losartan 50 mg twice daily for hyperte nsion - Omeprazole 40 mg for GERD - Vitamin B6 - Senokot for constipation, not recently taken Problem List - Vertigo - Cervical spondylosis with mild multile elaine disc protrusion - Tennis elbow - Chronic pericarditis - Hypothyroidism - Systemic lupus erythematosus - Hypertension - Constipation - Urinary incontinence - Gastroesophageal reflux disease (GERD) - History of shingles - History of bronchitis - stress incontinence Diagnostic results - MRI of cervical spine (November 2022): Mild multilevel cervical spondylosis, mild to moderate foraminal narrowing at C4-C5, small disc protrusion at C2-C5 and C5-C6. - Blood work: CBC, kidney function, live r enzymes, and electrolytes within normal limits. Patient Instructions - Consider wearing a collar while workin g on the computer to alleviate cervical pressure. - Perform Kegel exercises regularly to s trengthen pelvic floor muscles. - Adjust computer monitor to eye level t o prevent neck strain. - Follow up for her medications refill i n three months. - Continue current medication regimen; m ay take up to two meclizine tablets if vertigo persists. Once a day - Wait until recovery from respiratory s ymptoms before getting a shingles vaccine. - Consult with wool scourer regard ing constipation and previous me dications tried. Review of Systems General: No fever no chills neurological: No headaches no dizziness ear nose throat: No sore throat no hearing difficulty no ear pain cardiovascular: No syncope, no chest pain, no palpitations gastrointestinal: No nausea vomiting or diarrhea endocrine: No polyuria polydipsia no heat intolerance genitourinary: No dysuria skin: No new complaints Physical Exam general: No acute distress HEENT: No acute findings neck: Supple, mild multilevel cervical spondylosis, small disc protrusion C2-C5 and C5-C6, mild to moderate foraminal narrowing at C4 and C5 levels respiratory system: Able to talk in full sentences, no audible wheeze, no stridor cardiovascular: S1-S2 gastrointestinal: No pain extremities: Pain in arm and back, left leg pain possibly related to lumbar issues STATE PILOT: Alert, awake, oriented x3, motor sensory intact skin: Normal turgor PFSH Medical History Acute respiratory disease Well woman exam Foraminal stenosis of cervical region Radiculitis of left cervical region History of pericarditis Kidney stones Other specified hypothyroidism COVID-19 virus infection Cervical radiculopathy Chronic constipation Acute pericarditis Joint pain in fingers of right hand Myositis Hypothyroid SLE (systemic lupus erythematosus) Pericardial effusion Dysplasia of cervix, low grade (BERNDAETTE 1) 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 Mother No problems noted. 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 1. Little interest or pleasure in doing things: nearly every day 2. Feeling down, depressed, or hopeless: several days 3. Trouble falling or staying asleep, or sleeping too much: nearly every day 4. Feeling tired or having little energy: nearly every day 5. Poor appetite or overeating: nearly every day 6. Feeling bad about yourself - or that you are a failure or have let yourself or your family down: not at all 7. Trouble concentrating on things, such as reading the newspaper or watching television: not at all 8. Moving or speaking so slowly that other people could have noticed. Or the opposite - being so fidgety or restless that you have been moving around a lot more than usual: several days 9. Thoughts that you would be better off or of hurting yourself in some way: not at all Total score: 14 Depression Screening Interpretation: Positive Depression Screening Follow-up: Existing condition and In treatment Depression Screening Done: Yes 60827 - PHQ-9 Billing: Yes Source: Developed by Drs. Gary Winters, Juany Larsen, John Paul Godoy and colleagues, with an educational matt from [employer]. Thrive Questionnaire Date Thrive assessed: 05/09/24 I am a: Patient What is your living situation today?: I have a steady place to live Within the past 12 months, did the food you bought not last and you didn't have the money to get more?: Sometimes True Within the past 12 months, did you worry whether your food would run out before you got money to buy more?: Sometimes True Do you have trouble paying for medicines?: I choose not to answer this question Do you have trouble getting transportation to medical appointments?: No Do you have trouble paying your heating and electricity bill?: No Do you have trouble taking care of your child, family member or friend?: No Do you have trouble with day-to-day activities such as bathing, preparing meals, shopping, managing finances, etc.?: Yes Are you currently unemployed and looking for a job?: No Are you interested in more education?: No Please select the resources that you would like help with: None Currently or been in a relationship where the following occur: No concerns reported THRIVE Score: 2 AUDIT C Alcohol Use Questionnaire (AUDIT-C) 1. How often do you have a drink containing alcohol?: Monthly or less 2. How many drinks containing alcohol do you have on a typical day when you are drinking?: 1 or 2 3. How often do you have six or more drinks on one occasion?: Never Total Score: 1 Score Reviewed/Action Taken: Yes SILVANA-7 AMB Questionnaire SILVANA-7 Date SILVANA - 7 assessed: 05/09/24 Feeling nervous, anxious, or on edge: 1 = Several days Not being able to stop or control worryin = Not at all Worrying too much about different things: 1 = Several days Trouble relaxin = More than half the days Being so restless that it is hard to sit still: 2 = More than half the days Becoming easily annoyed or irritable: 0 = Not at all Feeling afraid as if something awful might happen: 0 = Not at all Total SILVANA-7 score (0-4 normal; 5-9 mild; 10-14 moderate; 15-21 severe): 6 Source: Developed by Drs. Gary Winters, Juany Larsen, John Paul Godoy and colleagues, with an educational matt from [employer]. SILVANA-7 Assessment Billing SILVANA-7 Assessment Tool: SILVANA-7 Assessment 72537 Physical exam (Primary Care) Vital Signs: Last Vital Signs Temp 98 F 05/09/24 09:49 Pulse 110 H 05/09/24 09:49 BP 120/80 05/09/24 09:49 Pulse Ox 100 05/09/24 09:49 Oxygen Delivery Method Room Air 05/09/24 09:49 BMI result Body Mass Index 26.0 Tobacco/Smoking Status: Tobacco use Status Tobacco use date assessed 05/09/24 05/09/24 09:52 Patient Tobacco Use Status Former Tobacco user 05/09/24 09:52 Tobacco use type Cigarette 05/09/24 09:52 e-Cigarette/Vaping Use Currently Using 05/09/24 09:52 PHQ-9: PHQ-9 Score PHQ-9: Total score 14 05/09/24 09:57 Depression Screening Interpretation: Positive Depression Screening Follow-up: Existing condition and In treatment Thrive Assessment: Date of Thrive Assessment Date Thrive assessed 05/09/24 05/09/24 09:57 Currently or been in a relationship where the following occur: No concerns reported Coding Level of Care Code Est Pt Level 5 (93392) Diagnoses Fibromyalgia M79.7 Bilateral primary osteoarthritis of knee M17.0 Chronic pain syndrome G89.4 Chronic pain type: chronic pain syndrome Nephropathy associated with another disease N08 Cardiomyopathy, unspecified type I42.9 Cardiomyopathy type: unspecified Gastroesophageal reflux disease without esophagitis K21.9 Esophagitis presence: without esophagitis Environmental allergies Z91.09 Long-term use of hydroxychloroquine Z79.899 Hypothyroidism, unspecified type E03.9 Hypothyroidism type: unspecified 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 Chronic pericarditis associated with systemic lupus erythematosus (SLE), unspecified complication status M32.12 Chronicity: chronic Chronic pericarditis complication: unspecified complication status Primary hypertension I10 Hypertension type: primary hypertension Other systemic lupus erythematosus with pericarditis M32.12 Systemic lupus erythematosus type: other Systemic lupus erythematosus organ involvement: pericarditis Additional Codes SILVANA-7 Assessment Billing - SILVANA-7 Assessment Tool: SILVANA-7 Assessment 55718 ([id number]) PHQ-9 - 87084 - PHQ-9 Billing: Yes ([id number]) Time Spent (min) 40 Comment Reviewing chart, labs, [id number] with the patient, coordination of care Assessment & Plan Assessment & Plan (1) Fibromyalgia: Code(s): M79.7 - Fibromyalgia Category: Medical (2) Bilateral primary osteoarthritis of knee: Code(s): M17.0 - Bilateral primary osteoarthritis of knee Category: Medical (3) Chronic pain: Code(s): G89.29 - Other chronic pain Category: Medical Qualifiers: Chronic pain type: chronic pain syndrome Qualified Code(s): G89.4 - Chronic pain syndrome (4) Nephropathy associated with another disease: Code(s): N08 - Glomerular disorders in diseases classified elsewhere Category: Medical (5) Cardiomyopathy: Code(s): I42.9 - Cardiomyopathy, unspecified Category: Medical Qualifiers: Cardiomyopathy type: unspecified Qualified Code(s): I42.9 - Cardiomyopathy, unspecified (6) Acid reflux: Comment: Acid reflux, precautions reviewed continue PPI, avoid culprits Code(s): K21.9 - Gastro-esophageal reflux disease without esophagitis Category: Medical Qualifiers: Esophagitis presence: without esophagitis Qualified Code(s): K21.9 - Ga stro-esophageal reflux disease without esophagitis (7) Environmental allergies: Code(s): Z91.09 - Other allergy status, other than to drugs and biological substances Category: Medical (8) Long-term use of hydroxychloroquine: Code(s): Z79.899 - Other laborer marine 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 (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) drug therapy Category: Medical (9) Hypothyroid: Code(s): E03.9 - Hypothyroidism, unspecified Category: Medical Qualifiers: Hypothyroidism type: unspecified Qualified Code(s): E03.9 - Hypothyroidism, unspecified (10) Lupus nephritis: Code(s): M32.14 - Glomerular disease in systemic lupus erythematosus Category: Medical (11) Pericarditis associated with systemic lupus erythematosus: Code(s): I31.9 - Disease of pericardium, unspecified; M32.12 - Pericarditis in systemic lupus erythematosus Category: Medical Qualifiers: Chronicity: chronic Chronic pericarditis complication: unspecified complication status Qualified Code(s): M32.12 - Pericarditis in systemic lupus erythematosus (12) HTN (hypertension): Code(s): I10 - Essential (primary) hypertension Category: Medical Qualifiers: Hypertension type: primary hypertension Qualified Code(s): I10 - Essen tial (primary) hypertension (13) SLE (systemic lupus erythematosus): Comment: dx in her teens (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, most recent kidney biopsy in 2001 with no active features of lupus nephritis with ongoing proteinuria, body aches, pericarditis with effusion that required pericardial window, abnormal nailfold capillaroscopy +++SSa) HCQ Code(s): M32.9 - Systemic lupus erythematosus, unspecified Category: Medical Qualifiers: Systemic lupus erythematosus type: other Systemic lupus erythematosus organ involvement: pericarditis Qualified Code(s): M32.12 - Pericarditis in systemic lupus erythematosus Plan The patient is a 48-year-old female with a history of fibromyalgia, lupus, chronic pericarditis, nephropathy, allergies, hypothyroidism, hypertension, chronic vertigo, chronic GERD, chronic constipation, presenting with exacerbation of vertigo and evaluation of musculoskeletal pain. - The patient reports daily vertigo persistent despite the use of meclizine and associates it with previous episodes of shingles and bronchitis. - Describes unilateral musculoskeletal pain in the left arm and back, amidst longstanding knee issues, with concurrent left leg pain - MRI of cervical spine couple of years ago reveals mild multilevel cervical spondylosis, mild to moderate foraminal narrowing at C4-C5, and several small disc protrusions, indicating potential for a pinched nerve. - Expresses concern about tennis elbow, with a plan for physical therapy. - Reports urinary incontinence associated with coughing or sneezing. Medications - Meclizine 25 mg for vertigo - Cetirizine for allergies - Colchicine for chronic pericarditis - Gabapentin 300 mg at night and 100 mg in the morning - Hydroxychloroquine for systemic lupus erythematosus - Levothyroxine 100 mcg for hypothyroidism - Losartan 50 mg twice daily for hypertension - Omeprazole 40 mg for GERD - Vitamin B6 - Senokot for constipation, not recently taken Problem List - Vertigo - Cervical spondylosis with mild multilevel disc protrusion - Tennis elbow - Chronic pericarditis - Hypothyroidism - Systemic lupus erythematosus - Hypertension - Constipation - Urinary incontinence - Gastroesophageal reflux disease (GERD) - History of shingles - History of bronchitis - stress incontinence Diagnostic results - MRI of cervical spine (November 2022): Mild multilevel cervical spondylosis, mild to moderate foraminal narrowing at C4-C5, small disc protrusion at C2-C5 and C5-C6. - Blood work: CBC, kidney function, liver enzymes, and electrolytes within normal limits. Patient Instructions - Consider wearing a collar while working on the computer to alleviate cervical pressure. - Perform Kegel exercises regularly to strengthen pelvic floor muscles. - Adjust computer monitor to eye level to prevent neck strain. - Follow up for her medications refill in three months. - Continue current medication regimen; may take up to two meclizine tablets if vertigo persists. Once a day - Wait until recovery from respiratory symptoms before getting a shingles vaccine. - Consult with wool scourer regarding constipation and previous medications tried.
== END 2024-05-09 10:17 | disposition home or self-care (01) ==
LOC: HO.HMCC 09:46
PROVIDERS: PCP Internal Medicine; Visit Provider Internal Medicine
DX: M79.7 Fibromyalgia (principal); I42.9 Cardiomyopathy, unspecified; M32.14 Glomerular disease in systemic lupus erythematosus; M32.12 Pericarditis in systemic lupus erythematosus; M17.0 Bilateral primary osteoarthritis of knee; N08 Glomerular disorders in diseases classified elsewhere; G89.4 Chronic pain syndrome; K21.9 Gastro-esophageal reflux disease without esophagitis; Z91.09 Other allergy status, other than to drugs and biological substances; Z79.899 Other long term (current) drug therapy; E03.9 Hypothyroidism, unspecified; I10 Essential (primary) hypertension

== ENCOUNTER → 2024-05-09 09:46 | Outpatient (BNVA) | payer BC, SELFPAY | PROVIDERS: PCP Internal Medicine; Visit Provider Internal Medicine | DX: M79.7 Fibromyalgia (principal); M17.0 Bilateral primary osteoarthritis of knee; G89.4 Chronic pain syndrome; I42.9 Cardiomyopathy, unspecified; K21.9 Gastro-esophageal reflux disease without esophagitis; E03.9 Hypothyroidism, unspecified; M32.12 Pericarditis in systemic lupus erythematosus; M32.14 Glomerular disease in systemic lupus erythematosus; I10 Essential (primary) hypertension; Z79.899 Other long term (current) drug therapy; Z91.09 Other allergy status, other than to drugs and biological substances | CPT/HCPCS: 96127 ==

== ENCOUNTER 2024-06-20 14:02 | Outpatient (RCR) | payer BC, SELFPAY ==
--- NOTE | 2024-05-19 08:39 | MHC.OT.EP ---
[address] [phone] Occupational Therapy Plan of Care Patient Name: Nery Cool Date of Evaluation: 05/18/24 Diagnosis: B elbow pain Pain Location: B elbows ; Pain Score: 5, 5 Pain Scale Used: Numeric (0 - 10) Aggravating Factors: extension of elbow and lifting Alleviating Factors: gabapentin helps when pt. takes at night Assessment: Pt is a 48 yr old R hand dominant who has been experiencing pain in her B elbows for over a year. Pt reports pain increases w/ elbow extension, and repetitive lifting. Pt also reports similar pain in her knees and ankle (pt has a comorbidity of Lupus). She reports her work environment may be contributing to her elbow pain (will bring pictures of her work place next tx to assess for ergonomics). She has a (-) Cozens (-) Loera, (-) Tinels, but reports pain w/ palpation of B lateral epicondyles. Frequency and Duration: The patient will be seen 2XS A WEEK FOR 4 WEEKS Short Term Goals: SEE BELOW Cardiac Cath Technologist Goals: Pt will be compliant w/ her HEP Pt will be compliant w/ her jt. protection techniques Pt will report 1/10 pain w/ activity in her R UE Pt will have 40 lbs of R Promotions Director Treatment Plan: Therapeutic Exercise Therapeutic Activity Home Exercise Program Splinting Neuro Re-ed Patient Education Desensitization/Sensory Re-ed Edema Control ADL Training Ultrasound NMES Iontophoresis Paraffin Fluidotherapy MHP Cold Packs Joint Mobilization Soft Tissue Mobilization Kinesiotaping Electronically Signed By: Simran Ferreira, OTR/L, CLT Please Sign and return to therapist. Thank you once again for your referral.
--- NOTE | 2024-07-13 08:01 | MHC.OT.DC ---
[address] [phone] F: [phone] Occupational Therapy Discharge Note Patient Name: Nery Cool Provider: Saul Pekrins Diagnosis: B elbow pain Date of Surgery: Date of Evaluation: 05/16/24 Date of Discharge: Treatments to Date: 7 Cancellations to Date: No Shows to Date: Discharge Status: Achieved Goals Improved Function Discharge Summary: Pt self d/ charge due to improvement in sx's Electronically Signed By: Aym Willingham OTR/L Reviewed/agree with student documentation: N/A Therapist: Please Sign and return to therapist, thank you for your referral.
== END 2024-07-13 08:01 | disposition home or self-care (01) ==
LOC: HO.OT 14:02
PROVIDERS: PCP Internal Medicine; Visit Provider Internal Medicine Rheumatology
DX: M77.11 Lateral epicondylitis, right elbow (principal); M77.12 Lateral epicondylitis, left elbow
CPT/HCPCS: 97033; 97110; 97140; 97166; 97535

== ENCOUNTER 2024-08-15 13:19 | Outpatient (AMB) | payer BC, SELFPAY ==
--- NOTE | 2024-08-15 13:20 | A.OFFVIS_ITS ---
Vital Signs 08/15/24 13:26 Height 5 ft 4 in Weight 147 lb BMI 25.2 BP 126/84 Blood Pressure Location Rt brachial Position Sitting Pulse 84 Pulse Source Pulse Oximeter Pulse Oximetry (%) 100 Oxygen Delivery Method Room Air Intake Visit Reasons: Esophagitis,Chronic Constipation, César pt Intake Note: ESTABLISHED PATIENT for mgmt of CIC w/ prior hx of H Pylori. LUDIVINA 2022. Chief Complaint; C.O. constipation exacerbation despite the senna which she takes daily. Pt reports she will sometimes take Milk of Magnesia which does help relieve constipation but induces severe diarrhea. Pt reports having PCP appt in 2 weeks to review concerns for thyroid imbalance. Security Operations Analyst Required: No Accompanied by: Self / Same As Patient Allergies aspirin Allergy (Unknown, Verified 08/15/24 13:21) vomiting, GI upset HPI HPI Esophagitis,Chronic Constipation, César pt: Details: LAST VISIT WITH CAHYO SALINAS 10/26/2022 [id number] HFD omeprazole 40 mg QD Reflux precautions Avoid culprits Asymptomatic colonoscopy 10 years Call with any questions or concerns TODAY'S VISIT Patient is here today for requested visit. Previously seen by Chayo CONTRERAS. Last visit back in October of 2022. Patient was seen for acid reflux, treated with omeprazole daily and her symptoms are suppressed. Patient was given script for senna for constipation. Patient reports that she is not doing well with senna. Patient was trying to drink plenty fluids, however still is constipated. Tried milk of magnesia and the cause so much of diarrhea. Unable to get PA for Linzess due to her insurance. Denies melena, hematochezia, unintentional weight loss or ribbon like stools. Denies dyspepsia, dysphagia or odynophagia. Last colonoscopy was done in 2022 recall in 10 years. 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 Mother No problems noted. 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 Cognitive needs: No Hearing needs: No Vision needs: Yes Female Reproductive History Menstrual Age of Menarche: 10 Review of Systems Const Denies weight gain and Denies weight loss ENT Reports no additional complaints, Denies dysphagia and Denies odynophagia Card Reports no additional complaints Resp Reports no additional complaints GI Denies abdominal pain, Denies belching, Denies melena, Denies bloating, Denies change in bowel habits, Reports constipation, Denies dysphagia, Denies excessive flatus, Denies dyspepsia, Denies heartburn, Denies diarrhea, Denies loose stools, Denies nausea, Denies odynophagia and Denies vomiting Reports no additional complaints Musc Reports no additional complaints Neuro Reports no additional complaints Psych Reports no additional complaints Endo Reports no additional complaints Physical Exam Vital Signs: BMI result Body Mass Index 25.2 Const General: healthy appearing, no acute distress and well developed Nutritional Appearance: well nourished Orientation/consciousness: patient oriented x3 Resp Effort & Inspection: normal respiratory effort, able to speak in complete sentences, no tracheal deviation and symmetric chest movement Auscultation: clear to auscultation bilaterally Cardio Rate: regular rate GI Inspection: Yes normal to inspection and No distended Palpation (GI): Soft to palpation, not firm, nontender and No hepatosplenomegaly present Auscultation: normal bowel sounds General: Yes no CVA tenderness Back/Spine/Pelvis Back: no CVA tenderness Skin General skin exam: elasticity normal, turgor normal and dry skin Neuro General: patient oriented x3 Psych Appearance: grossly normal Mental Status: mental status grossly normal Assessment & Plan Assessment & Plan (1) Acid reflux: Code(s): K21.9 - Gastro-esophageal reflux disease without esophagitis Category: Medical Qualifiers: Esophagitis presence: without esophagitis Qualified Code(s): K21.9 - Gastro-esophageal reflux disease without esophagitis (2) Transaminitis: Code(s): R74.01 - Elevation of levels of liver transaminase levels Category: Medical (3) Chronic constipation: Code(s): K59.09 - Other constipation Category: Medical Plan Patient will increase senna 2 tablets daily. Increase fluid intake and activity to promote better bowel motility. Patient will continue taking omeprazole daily. Avoid dietary triggers and late night snacking. Staying upright for minimum 3 hours after meals discussed with patient. Will check patient's thyroid level, CMP. Follow-up in 6 months, sooner on as needed basis. Patient is agreeable to this plan and verbalizes understanding of instructions. She was given the opportunity to ask questions and all questions answered. Thank you for allowing me to participate in her care Orders: Orders Comprehensive Met. Panel Today K21.9 - Gastro-esophageal reflux disease without esophagitis TSH reflex Free T4 Today K59.00 - Constipation, unspecified Medications: Changed From sennosides-docusate sodium 8.6-50 mg (Senokot-S) 1 tab-cap PO BEDTIME 90 days 90 tabs 0RF constipation K59.03 - Drug induced constipation, T40.2X5A - Adverse effect of other opioids, initial encounter To sennosides-docusate sodium 8.6-50 mg (Senokot-S) 2 tab-caps (2 x 8.6-50 mg) PO BEDTIME 180 tabs 1RF constipation 90 days K59.03 - Drug induced constipation, T40.2X5A - Adverse effect of other opioids, initial encounter Coding Level of Care Code Est Pt Level 3 (70970) Diagnoses Gastroesophageal reflux disease without esophagitis K21.9 Esophagitis presence: without esophagitis Transaminitis R74.01 Chronic constipation K59.09 Time Spent (min) 35 Comment 25 minutes spent with patient and additional 10 minutes spent reviewing her records
[2024-08-15 13:26] VITALS: BP 126/84; PULSE 84; O2SAT 100; BMI 25.2
--- OUTSIDE RECORDS SUMMARY | 2024-08-15 14:30 | XMS_ITS | Clinical Summary ---
Author Organization [facility] Address [address] [place] [phone] Phone Care Team Providers Care Inside Parts Sales Name Role Phone Bryant Alejandra MD Primary Care Provider [phone] Allergies Active Allergy Reactions Criticality Noted Date [...] 2 (mild),Proteinu kati, not otherwise specified,Hyper tension TAKE 1 TABLET(50 MG) BY MOUTH 1 TIME EACH DAY 90 tablet 3 Active Active Problems Problem Noted Date Diagnosed [...] Encounters Date Type Department Care Team Description 07/09/2024 Refill [facility] [address] [place] [address] Vance August MD Chronic kidney disease, stage 2 (mild); Proteinuria, not otherwise specified; Hypertension from Last 3 Months Family History Medical [...] Office Visit [facility] [address].. [address] [phone] Lilibeth Berrios ARNP [address] [phone] Health Maintenance Due Date Last Done Comments Breast Cancer Screening 1975 Hepatitis B Vaccine (1 of 3 - 19+ 3-dose series) 11/26 Pneumococcal Vaccine: 50+ Years (1 of 2 - PCV) 993 Colorectal Cancer Screening: Annual FOBT 2022 Colorectal Cancer Screening: Colonoscopy 2022 Colorectal Cancer Screening: Sigmoidoscopy 2022 Influenza Vaccine (Season Ended) 2024 Insurance [facility] Care Teams Inside Parts Sales Relationship Specialty Start Date End Date Bryant Alejandra MD [facility] [place] [address] PCP - General Internal Medicine 01/19/24
== END 2024-08-15 13:42 | disposition home or self-care (01) ==
LOC: HO.HGI 13:20
PROVIDERS: PCP Internal Medicine; Visit Provider Nurse Practitioner Family
DX: K21.9 Gastro-esophageal reflux disease without esophagitis (principal); R74.01 Elevation of levels of liver transaminase levels; K59.09 Other constipation
CPT/HCPCS: 99213

== ENCOUNTER 2024-08-21 08:29 | Outpatient (REF) | payer BC, SELFPAY ==
--- OUTSIDE RECORDS SUMMARY | 2024-08-21 08:41 | XMS_ITS | Clinical Summary ---
Author Organization [facility][1] Address [address] [place] [phone] Phone Care Team Providers Care Cold Molding Press Operator Name Role Phone Bryant Alejandra MD Primary Care Provider [phone] Allergies Active Allergy Reactions Criticality Noted Date [...] Of [place] [address] [place] [address] Vance August MD Chronic kidney disease, stage [...] Office Visit [facility] [address].. [address] [phone] Lilibeth Berrios ARNP [address] [phone] Health Maintenance Due Date Last Done Comments Breast Cancer Screening 1975 Hepatitis B Vaccine (1 of 3 - 19+ 3-dose series) 11/26 Pneumococcal Vaccine: 50+ Years (1 of 2 - PCV) 993 Colorectal Cancer Screening: Annual FOBT 2022 Colorectal Cancer Screening: Colonoscopy 2022 Colorectal Cancer Screening: Sigmoidoscopy 2022 Influenza Vaccine (#1) 2024 Insurance [facility] Care Teams Cold Molding Press Operator Relationship Specialty Start Date End Date Bryant Alejandra MD [facility] [address] PCP - General Internal Medicine 01/19/24
[2024-08-21 09:03] LABS: MANUAL DIFF FLAG NO
[2024-08-21 09:37] LABS: Hematocrit 37.5 % (37.0-47.0); Hemoglobin 12.6 g/dl (12.0-16.0); Imm Gran Abs Auto 0.01 X10*3/uL (0.00-0.03); Imm Gran Pct Auto 0.2 % (0.0-0.4); Lymphocytes Absolute Auto 1.7 X10*3/uL (1.2-4.9); Mean Corpuscular HGB Conc 33.6 g/dl (31.0-35.0); Mean Corpuscular Hemoglobin 29.4 pg (27.0-33.0); Mean Corpuscular Volume 87.6 fL (80.0-98.0); NRBC Abs Auto 0.000 X10*3/uL (0.0-0.012); NRBC Pct Auto 0.0 /100WBC (0.0-0.2); Platelet Count 188 X10*3/uL (160-400); Red Blood Count 4.28 X10*6/uL (4.20-5.50); White Blood Count 5.3 X10*3/uL (4.8-10.8)
[2024-08-21 10:14] LABS: Alanine Aminotransferase 14 U/L (0-31); Albumin Level 3.8 g/dL (3.5-5.0); Alkaline Phosphatase 60 U/L (39-117); Anion Gap 10 (12-20); Aspartate Amino Transferase 22 U/L (5-31); Blood Urea Nitrogen 17 mg/dL (9-16); Calcium 8.9 mg/dL (8.4-10.2); Carbon Dioxide 24 mmol/L (22-29); Chloride 111 mmol/L (96-108); Estimated Glomerular Filt Rate 56; Potassium 3.6 mmol/L (3.3-5.1); Sodium 141 mmol/L (135-145); Total Protein 6.5 g/dL (6.5-8.0)
[2024-08-21 10:58] LABS: Appearance Urine Clear; Glucose Urine UA Negative (Negative); PH 6.5 (5.0-9.0); Specific Gravity - Urine 1.020 (1.005-1.025); UMIC TRIGGER UA YES
[2024-08-21 11:32] LABS: Alanine Aminotransferase 13 U/L (0-31); Albumin Level 3.8 g/dL (3.5-5.0); Alkaline Phosphatase 58 U/L (39-117); Anion Gap 9 (12-20); Aspartate Amino Transferase 22 U/L (5-31); Blood Urea Nitrogen 17 mg/dL (9-16); Calcium 8.9 mg/dL (8.4-10.2); Carbon Dioxide 25 mmol/L (22-29); Chloride 111 mmol/L (96-108); Estimated Glomerular Filt Rate 56; Potassium 3.6 mmol/L (3.3-5.1); Sodium 141 mmol/L (135-145); Total Protein 6.5 g/dL (6.5-8.0)
[2024-08-21 12:27] LABS: Free T4 (Free Thyroxine) 0.95 ng/dL (0.71-1.85)
[2024-08-21 12:34] LABS: Protein/Creatinine Ratio, Ur 1.52 (<0.2); Total Protein Urine Random 248 mg/dL (<12)
== END 2024-08-21 08:30 | disposition home or self-care (01) ==
LOC: HO.LAB 08:29
PROVIDERS: Obstetrics & Gynecology; Absent Provider Student in an Organized Health Care Education/Training Program; PCP Internal Medicine; Referring Provider Internal Medicine Rheumatology; Visit Provider Nurse Practitioner Family
DX: E03.8 Other specified hypothyroidism (principal); K21.9 Gastro-esophageal reflux disease without esophagitis; K59.00 Constipation, unspecified; M32.9 Systemic lupus erythematosus, unspecified; N93.9 Abnormal uterine and vaginal bleeding, unspecified
CPT/HCPCS: 36415; 80053; 81001; 82570; 84156; 84439; 84443; 85025; 85652

== ENCOUNTER 2024-08-22 14:10 | Outpatient (REF) | payer BC, SELFPAY ==
[2024-08-22 19:04] LABS: Free T4 (Free Thyroxine) 0.92 ng/dL (0.71-1.85)
== END 2024-08-22 14:11 | disposition home or self-care (01) ==
LOC: HO.HKASLDS 14:10
PROVIDERS: Nurse Practitioner Family; PCP Internal Medicine; Visit Provider Internal Medicine Rheumatology
DX: M32.12 Pericarditis in systemic lupus erythematosus (principal); M25.562 Pain in left knee; G89.29 Other chronic pain; M77.11 Lateral epicondylitis, right elbow; M77.12 Lateral epicondylitis, left elbow; I73.00 Raynaud's syndrome without gangrene; K59.00 Constipation, unspecified; Z79.899 Other long term (current) drug therapy
CPT/HCPCS: 36415; 84439; 84443; 86160; 86225

== ENCOUNTER 2024-08-22 14:10 | Outpatient (AMB) | payer BC, SELFPAY ==
--- NOTE | 2024-08-22 14:12 | A.OFFVIS_ITS ---
Vital Signs 08/22/24 14:15 Height 5 ft 4 in Weight 153 lb 0.013 oz BMI 26.3 BP 130/80 Blood Pressure Location Lt brachial Position Sitting Pulse 76 Pulse Source Pulse Oximeter Pulse Oximetry (%) 100 Oxygen Delivery Method Room Air Intake Visit Reasons: Discuss lab results Intake Note: Patients presents today to discuss labs. Allergies aspirin Allergy (Unknown, Verified 08/22/24 14:17) vomiting, GI upset HPI HPI Discuss lab results: Details: Raynaud's syndrome is active daily. She experiences discoloration of fingertips with fingertips turning red or purplish. Denies numbness, pain or any sensation associated with discoloration. Spontaneous onset and spontaneous resolution. No fevers, dysphnea, no hematuria or dysuria or frequency, rash +whole body hurts, especially neck, back, knees and feet. PT helped elbow pain. +frothy urine, +chest pain daily She saw Nephrology PA or nurse practitioner name Lilibeth at [address] but reports that the practice moved to [facility] in [facility]. Last saw Lilibeth May 2023. She was told that her next appointment would be yearly. She will be seeing microsoft dynamics manager architect in September. 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 Mother No problems noted. 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 Good respiratory effort Skin: No lesions seen, no digital ulcerations. Erythematous fingertips. MSK: No tender joints. No synovitis of any joints present. Normal range of motion of upper extremities and lower extremities. Assessment & Plan Assessment & Plan (1) SLE (systemic lupus erythematosus): Comment: Labs recently revealed proteinuria with protein to creatinine ratio 1.52 increased from 0.33 01/2024 with preserved kidney function. I am ordering additional labs to assess lupus activity. Most recent labs revealed no cytopenias with normal ESR Rheumatology history: Diagnosed with SLE age 6 or 7 in [place]. 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 She has positive LING 1:160 and 1:80. Repeat biopsy 2001 revealed no active lupus nephritis with ongoing proteinuria. 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 On losartan. She also has recurrent pericarditis previously treated with pericardial window due pericardial effusion with most recent episode treated with colchicine with relief. She also has Raynaud's phenomenon, which is controlled conservatively. Code(s): M32.9 - Systemic lupus erythematosus, unspecified Category: Medical Qualifiers: Systemic lupus erythematosus organ involvement: pericarditis Systemic lupus erythematosus type: unspecified Qualified Code(s): M32.12 - Pericarditis in systemic lupus erythematosus Plan: Labs for disease monitoring ordered I have asked her to call Nephrology office for an appointment for follow-up with consideration of having a repeat kidney biopsy as it will aid in medical management of proteinuria with consideration of induction therapy with prednisone and mycophenolate mofetil for treatment of lupus nephritis if active lesions are shown on kidney biopsy. She is currently on losartan 50 mg b.i.d. to help control proteinuria -may need to consider dose change, which I am deferring to Nephrology. Patient will call our office with details of the nephrology provider who she sees so I can send my clinic note and labs to the provider. Continue hydroxychloroquine 300 mg daily. HCQ surveillance exam VF 10/05/2023, OCT baseline 07/08/2022 with repeat 09/2023 stable. She will follow-up with cardiology for for monitoring of recurrent pericarditis -continue colchicine per Cardiology. Appointment scheduled for September 2024. Return to clinic in 3 months (2) Left knee pain: Comment: Knee gives out on patient with uncontrolled pain. Failed physical therapy. She recently started bracing. She did not have x-ray of her left knee done Code(s): M25.562 - Pain in left knee Category: Medical Qualifiers: Chronicity: chronic Qualified Code(s): M25.562 - Pain in left knee; G89.29 - Other chronic pain Plan: Continue left knee bracing X-ray left knee ordered last visit PT ordered for lower extremity strengthening She will avoid oral NSAIDs advice from veteran appeals reviewer She will take Tylenol as needed for pain Apply diclofenac gel 1% to affected area every 4-6 hours as needed Ice knee twice a day Return to clinic in 3 months (3) Lateral epicondylitis of both elbows: Comment: Suspected. Pain improved with appropriate use of elbow support bands and PT Code(s): M77.11 - Lateral epicondylitis, right elbow; M77.12 - Lateral epicondylitis, left elbow Category: Medical Plan: Monitor clinically for reoccurrence (4) Raynaud disease without gangrene: Comment: Controlled with conservative management Code(s): I73.00 - Raynaud's syndrome without gangrene Category: Medical Plan: Continue conservative manage Return to clinic in 3 months Orders: Orders Complement C4 Today M32.9 - Systemic lupus erythematosus, unspecified Complement C3 Today M32.9 - Systemic lupus erythematosus, unspecified Anti DNA DS Antibody Today M32.9 - Systemic lupus erythematosus, unspecified C Reactive Protein Today Z79.899 - Other terminal system operator (current) drug therapy PT Evaluation and Treatment Today G89.29 - Other chronic pain, M25.562 - Pain in left knee Coding Level of Care Code Est Pt Level 4 (94745) Complex EM visit Add On G2211 Diagnoses Systemic lupus erythematosus (SLE) with pericarditis, unspecified SLE type M32.12 Systemic lupus erythematosus organ involvement: pericarditis Systemic lupus erythematosus type: unspecified Chronic pain of left knee M25.562; G89.29 Chronicity: chronic Lateral epicondylitis of both elbows M77.11; M77.12 Raynaud disease without gangrene I73.00
[2024-08-22 14:15] VITALS: BP 130/80; PULSE 76; O2SAT 100; BMI 26.3
--- OUTSIDE RECORDS SUMMARY | 2024-08-22 15:02 | XMS_ITS | Clinical Summary ---
Author Organization [facility] Address [address] [place] [phone] Phone Care Team Providers Care Construction Ironworker Helper Name Role Phone Bryant Alejandra MD Primary Care Provider Allergies Active Allergy Reactions Criticality Noted Date [...] Of [place] [address] [place] [address] Vance August MD Chronic kidney disease, stage [...] Office Visit [facility] [address].. [address] [phone] Lilibeth Berrios ARNP [address] [phone] Health Maintenance Due Date Last Done Comments Breast Cancer Screening 1975 Hepatitis B Vaccine (1 of 3 - 19+ 3-dose series) 11/26 Pneumococcal Vaccine: 50+ Years (1 of 2 - PCV) 993 Colorectal Cancer Screening: Annual FOBT 2022 Colorectal Cancer Screening: Colonoscopy 2022 Colorectal Cancer Screening: Sigmoidoscopy 2022 Influenza Vaccine (#1) 2024 Insurance [facility] Care Teams Construction Ironworker Helper Relationship Specialty Start Date End Date Bryant Alejandra MD [facility] [place] [address] PCP - General Internal Medicine 01/19/24
== END 2024-08-22 14:49 | disposition home or self-care (01) ==
LOC: HO.RHES 14:11
PROVIDERS: PCP Internal Medicine; Visit Provider Internal Medicine Rheumatology
DX: M32.12 Pericarditis in systemic lupus erythematosus (principal); M25.562 Pain in left knee; G89.29 Other chronic pain; M77.11 Lateral epicondylitis, right elbow; M77.12 Lateral epicondylitis, left elbow; I73.00 Raynaud's syndrome without gangrene
CPT/HCPCS: 99214

== ENCOUNTER 2024-08-23 11:53 | Outpatient (AMB) | payer BC, SELFPAY ==
--- NOTE | 2024-08-23 12:01 | A.OFFPC_ITS ---
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: No Is last menstrual period known: Yes Last menstrual period: 06/28/24 Post menopausal: No Patient : No Allergies aspirin Allergy (Unknown, Verified 08/23/24 12:10) vomiting, GI upset Medication List - Last Reconciled 08/23/24 by Bryant Alejandra MD acetaminophen (Tylenol) 650 mg (2 x 325 mg) PO Q6H PRN albuterol sulfate 90 mcg/actuation 2 puffs inhalation Q6H PRN cetirizine 10 mg PO DAILY colchicine 0.6 mg PO DAILY 90 days diclofenac sodium 1% 2 grams topical QID fluticasone propionate 50 mcg/actuation 2 sprays intranasal BID gabapentin 100 mg PO DAILY gabapentin 300 mg PO BID 30 days hydroxychloroquine 300 mg (1.5 x 200 mg) PO DAILY 90 days leg brace (Knee Support Brace) As directed levothyroxine 100 mcg PO DAILY 90 days losartan 50 mg PO BID meclizine 25 mg PO DAILY PRN 90 days omeprazole 40 mg (2 x 20 mg) PO DAILY 30 days pyridoxine (vitamin B6) 100 mg PO DAILY 90 days sennosides-docusate sodium 8.6-50 mg (Senokot-S) 2 tab-caps (2 x 8.6-50 mg) PO BEDTIME 90 days Tobacco use date assessed: 08/23/24 Dental Screening Dental Screen Date: 05/09/24 Did you have a dental visit in the last 12 months?: Yes Did you have a dental problem in the last 6 months where you did not have access to dental care?: No Was dental information given to patient?: Patient has dentist HPI 3 months f/up HPI Details History - The patient is a 48-year-old female pr esenting with concerns about co nstipation and kidney function. - She reports significant issues with co nstipation, for which she has been advised to take Senna two tablets daily and to increase fluid intake. She has been adhering to this regimen since the day of her gastroenterology appointment. 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 She noted concerns about proteinuria, which prompted her buffet waiter/waitress to suggest a nephrology consultation. - The patient was informed of compromise d kidney function with a glomerular filtration rate (GFR) of 56 (normal being 60), indicating slight compromise. - The patient takes multiple medications . - A thyroid test previously conducted sh owed abnormal results, necessitating an adjustment in her levothyroxine dosage. increase the dose to 125 mcg - The patient reports she has not underg one a kidney biopsy since 2001, and her buffet waiter/waitress desires to re-evaluate due to persistent proteinuria. Medical History: - Lupus - Proteinuria - Constipation - Thyroid dysfunction - ch percarditits Surgical History: - Kidney biopsy, 2001 Medications: - Senokot 2 tablets daily for constipati on - Hydroxychloroquine for lupus - Levothyroxine for thyroid management - Omeprazole and other prescribed medica tions as discussed. 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 - She has a history of daily body aches. - Denies soda consumption; prefers water and juice, though attention is required to ensure juice is 100% and not just flavored drink. Diagnostic Results: - Labs: CBC normal, electrolytes normal, slightly compromised kidney function (GFR 56), normal liver enzymes, slightly off thyroid tests. Problem List - Constipation - Lupus - Slightly compromised kidney function ( GFR 56) - Proteinuria - Thyroid dysfunction - pain managment with Gabapentine Patient Instructions - Take Senokot as prescribed. - Increase fluid intake. - Ensure juice is 100% and not a flavore d drink. - Follow prescribed levothyroxine dosage adjustment. - Monitor symptoms and report any change s. - continue meds - f/u end of Dec for PE apt Review of Systems - General: No fever no chills - Neurological: No headaches no dizziness - Ear nose throat: No sore throat no hearing difficulty no ear pain - Cardiovascular: No syncope, no chest pain, no palpitations - Gastrointestinal: No nausea vomiting or diarrhea - Endocrine: No polyuria polydipsia no heat intolerance - Genitourinary: No dysuria , no blood in urine Physical Exam General: No acute distress HEENT: No acute findings Neck: Supple Respiratory system: Able to talk in full sentences, no audible wheeze Cardiovascular: S1-S2 regular in rate and rhythm Gastrointestinal: Constipation reported Extremities: No new findings RECORD SEARCHER: Alert awake oriented x3 motor sensory intact Skin: Normal turgor PFSH Medical History Acute respiratory disease Well woman exam Foraminal stenosis of cervical region Radiculitis of left cervical region History of pericarditis Kidney stones Other specified hypothyroidism COVID-19 virus infection Cervical radiculopathy Chronic constipation Acute pericarditis Joint pain in fingers of right hand Myositis Hypothyroid SLE (systemic lupus erythematosus) Pericardial effusion Dysplasia of cervix, low grade ([place] 1) 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 Mother No problems noted. 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 1. Little interest or pleasure in doing things: nearly every day 2. Feeling down, depressed, or hopeless: several days 3. Trouble falling or staying asleep, or sleeping too much: nearly every day 4. Feeling tired or having little energy: nearly every day 5. Poor appetite or overeating: nearly every day 6. Feeling bad about yourself - or that you are a failure or have let yourself or your family down: not at all 7. Trouble concentrating on things, such as reading the newspaper or watching television: not at all 8. Moving or speaking so slowly that other people could have noticed. Or the opposite - being so fidgety or restless that you have been moving around a lot more than usual: several days 9. Thoughts that you would be better off or of hurting yourself in some way: not at all Total score: 14 Depression Screening Interpretation: Positive Depression Screening Follow-up: Existing condition and In treatment Depression Screening Done: Yes 04441 - PHQ-9 Billing: Yes Source: Developed by Drs. Gary Winters, Juany Larsen, John Paul Godoy and colleagues, with an educational matt from [employer]. Thrive Questionnaire Date Thrive assessed: 08/23/24 I am a: Patient What is your living situation today?: I have a steady place to live Within the past 12 months, did the food you bought not last and you didn't have the money to get more?: Sometimes True Within the past 12 months, did you worry whether your food would run out before you got money to buy more?: Sometimes True Do you have trouble paying for medicines?: I choose not to answer this question Do you have trouble getting transportation to medical appointments?: No Do you have trouble paying your heating and electricity bill?: No Do you have trouble taking care of your child, family member or friend?: No Do you have trouble with day-to-day activities such as bathing, preparing meals, shopping, managing finances, etc.?: Yes Are you currently unemployed and looking for a job?: No Are you interested in more education?: No Please select the resources that you would like help with: None Currently or been in a relationship where the following occur: No concerns reported THRIVE Score: 2 AUDIT C Alcohol Use Questionnaire (AUDIT-C) 1. How often do you have a drink containing alcohol?: Monthly or less 2. How many drinks containing alcohol do you have on a typical day when you are drinking?: 1 or 2 3. How often do you have six or more drinks on one occasion?: Never Total Score: 1 Score Reviewed/Action Taken: Yes SILVANA-7 AMB Questionnaire SILVANA-7 Date SILVANA - 7 assessed: 05/09/24 Source: Developed by Drs. Gary Winters, Juany Larsen, John Paul Godoy and colleagues, with an educational matt from [employer]. Physical exam (Primary Care) Vital Signs: Last Vital Signs Temp 98.2 F 08/23/24 12:06 Pulse 82 08/23/24 12:06 BP 120/82 08/23/24 12:06 Pulse Ox 96 08/23/24 12:06 Oxygen Delivery Method Room Air 08/23/24 12:06 BMI result Body Mass Index 23.8 Tobacco/Smoking Status: Tobacco use Status Tobacco use date assessed 08/23/24 08/23/24 12:13 Patient Tobacco Use Status Former Tobacco user 08/23/24 12:03 Tobacco use type Cigarette 08/23/24 12:03 e-Cigarette/Vaping Use Currently Using 08/23/24 12:03 PHQ-9: PHQ-9 Score PHQ-9: Total score 14 08/23/24 12:29 Depression Screening Interpretation: Positive Depression Screening Follow-up: Existing condition and In treatment Thrive Assessment: Date of Thrive Assessment Date Thrive assessed 08/23/24 08/23/24 12:13 Currently or been in a relationship where the following occur: No concerns reported Coding Level of Care Code Est Pt Level 4 (99814) Diagnoses Nephropathy associated with another disease N08 Persistent proteinuria R80.1 Proteinuria type: persistent Fibromyalgia M79.7 Chronic pain syndrome G89.4 Chronic pain type: chronic pain syndrome Cardiomyopathy, unspecified type I42.9 Cardiomyopathy type: unspecified Gastroesophageal reflux disease without esophagitis K21.9 Esophagitis presence: without esophagitis Environmental allergies Z91.09 Long-term use of hydroxychloroquine Z79.899 Hypothyroidism, unspecified type E03.9 Hypothyroidism type: unspecified 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 Chronic pericarditis associated with systemic lupus erythematosus (SLE), unspecified complication status M32.12 Chronicity: chronic Chronic pericarditis complication: unspecified complication status Primary hypertension I10 Hypertension type: primary hypertension Other systemic lupus erythematosus with pericarditis M32.12 Systemic lupus erythematosus type: other Systemic lupus erythematosus organ involvement: pericarditis Additional Codes PHQ-9 - 69622 - PHQ-9 Billing: Yes ([id number]) Assessment & Plan Assessment & Plan (1) Nephropathy associated with another disease: Code(s): N08 - Glomerular disorders in diseases classified elsewhere Category: Medical (2) Proteinuria: Code(s): R80.9 - Proteinuria, unspecified Category: Medical Qualifiers: Proteinuria type: persistent Qualified Code(s): R80.1 - Persistent proteinuria, unspecified (3) Fibromyalgia: Code(s): M79.7 - Fibromyalgia Category: Medical (4) Chronic pain: Code(s): G89.29 - Other chronic pain Category: Medical Qualifiers: Chronic pain type: chronic pain syndrome Qualified Code(s): G89.4 - Chronic pain syndrome (5) Cardiomyopathy: Code(s): I42.9 - Cardiomyopathy, unspecified Category: Medical Qualifiers: Cardiomyopathy type: unspecified Qualified Code(s): I42.9 - Cardiomyopathy, unspecified (6) Acid reflux: Code(s): K21.9 - Gastro-esophageal reflux disease without esophagitis Category: Medical Qualifiers: Esophagitis presence: without esophagitis Qualified Code(s): K21.9 - Gastro-esophageal reflux disease without esophagitis (7) Environmental allergies: Code(s): Z91.09 - Other allergy status, other than to drugs and biological substances Category: Medical (8) Long-term use of hydroxychloroquine: Code(s): Z79.899 - Other long term care administrator (current) drug therapy Category: Medical (9) Hypothyroid: Code(s): E03.9 - Hypothyroidism, unspecified Category: Medical Qualifiers: Hypothyroidism type: unspecified Qualified Code(s): E03.9 - Hypothyroidism, unspecified (10) Lupus nephritis: Code(s): M32.14 - Glomerular disease in systemic lupus erythematosus Category: Medical (11) Pericarditis associated with systemic lupus erythematosus: Code(s): I31.9 - Disease of pericardium, unspecified; M32.12 - Pericarditis in systemic lupus erythematosus Category: Medical Qualifiers: Chronicity: chronic Chronic pericarditis complication: unspecified complication status Qualified Code(s): M32.12 - Pericarditis in systemic lupus erythematosus (12) HTN (hypertension): Code(s): I10 - Essential (primary) hypertension Category: Medical Qualifiers: Hypertension type: primary hypertension Qualified Code(s): I10 - Essential (primary) hypertension (13) SLE (systemic lupus erythematosus): Comment: dx in her teens (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, most recent kidney biopsy in 2001 with no active features of lupus nephritis with ongoing proteinuria, body aches, pericarditis with effusion that required pericardial window, abnormal nailfold capillaroscopy +++SSa) HCQ Code(s): M32.9 - Systemic lupus erythematosus, unspecified Category: Medical Qualifiers: Systemic lupus erythematosus type: other Systemic lupus erythematosus organ involvement: pericarditis Qualified Code(s): M32.12 - Pericarditis in systemic lupus erythematosus Plan History - The patient is a 48-year-old female presenting with concerns about constipation and kidney function. - She reports significant issues with constipation, for which she has been advised to take Senna two tablets daily and to increase fluid intake. She has been adhering to this regimen since the day of her gastroenterology appointment. 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 She noted concerns about proteinuria, which prompted her buffet waiter/waitress to suggest a nephrology consultation. - The patient was informed of compromised kidney function with a glomerular filtration rate (GFR) of 56 (normal being 60), indicating slight compromise. - The patient takes multiple medications . - A thyroid test previously conducted showed abnormal results, necessitating an adjustment in her levothyroxine dosage. increase the dose to 125 mcg - The patient reports she has not undergone a kidney biopsy since 2001, and her buffet waiter/waitress desires to re-evaluate due to persistent proteinuria. Medical History: - Lupus - Proteinuria - Constipation - Thyroid dysfunction - ch percarditits Surgical History: - Kidney biopsy, 2001 Medications: - Senokot 2 tablets daily for constipation - Hydroxychloroquine for lupus - Levothyroxine for thyroid management - Omeprazole and other prescribed medications as discussed. 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 - She has a history of daily body aches. - Denies soda consumption; prefers water and juice, though attention is required to ensure juice is 100% and not just flavored drink. Diagnostic Results: - Labs: CBC normal, electrolytes normal, slightly compromised kidney function (GFR 56), normal liver enzymes, slightly off thyroid tests. Problem List - Constipation - Lupus - Slightly compromised kidney function (GFR 56) - Proteinuria - Thyroid dysfunction - pain managment with Gabapentine Patient Instructions - Take Senokot as prescribed. - Increase fluid intake. - Ensure juice is 100% and not a flavored drink. - Follow prescribed levothyroxine dosage adjustment. - Monitor symptoms and report any changes. - continue meds - f/u end of Dec for PE apt Orders: Orders Microalbumin, Random (w Creat) Today N08 - Glomerular disorders in diseases classified elsewhere, R80.9 - Proteinuria, unspecified UA CC w/rflx Micro + Cult Today N08 - Glomerular disorders in diseases classified elsewhere, R80.9 - Proteinuria, unspecified Medications: New levothyroxine (Synthroid) 125 mcg PO DAILY 90 tabs 1RF Discontinued levothyroxine Discontinued Reason: Doctor's Order 100 mcg PO DAILY 90 days 90 tabs 0RF
[2024-08-23 12:06] VITALS: BP 120/82; PULSE 82; TEMP 36.8; O2SAT 96; BMI 23.8
--- OUTSIDE RECORDS SUMMARY | 2024-08-23 13:04 | XMS_ITS | Clinical Summary ---
Author Organization [facility] Address [address] [place] [phone] Phone Care Team Providers Care Environmental Services Lead Name Role Phone Bryant Alejandra MD Primary Care Provider [phone] Allergies Active Allergy Reactions Criticality Noted Date [...] Of [address] [place] [address] Vance August MD Chronic kidney disease, stage [...] Office Visit [facility] [address].. [address] [phone] Lilibeth Berrios ARNP [address] [phone] Health Maintenance Due Date Last Done Comments Breast Cancer Screening 1975 Hepatitis B Vaccine (1 of 3 - 19+ 3-dose series) 11/26 Pneumococcal Vaccine: 50+ Years (1 of 2 - PCV) 993 Colorectal Cancer Screening: Annual FOBT 2022 Colorectal Cancer Screening: Colonoscopy 2022 Colorectal Cancer Screening: Sigmoidoscopy 2022 Influenza Vaccine (#1) 2024 Insurance [facility] Care Teams Environmental Services Lead Relationship Specialty Start Date End Date Bryant Alejandra MD [place] [address] PCP - General Internal Medicine 01/19/24
== END 2024-08-23 12:29 | disposition home or self-care (01) ==
LOC: HO.HMCC 11:54
PROVIDERS: PCP Internal Medicine; Visit Provider Internal Medicine
DX: I42.9 Cardiomyopathy, unspecified (principal); M32.14 Glomerular disease in systemic lupus erythematosus; M32.12 Pericarditis in systemic lupus erythematosus; R80.1 Persistent proteinuria, unspecified; M79.7 Fibromyalgia; G89.4 Chronic pain syndrome; K21.9 Gastro-esophageal reflux disease without esophagitis; Z91.09 Other allergy status, other than to drugs and biological substances; Z79.899 Other long term (current) drug therapy; E03.9 Hypothyroidism, unspecified; I10 Essential (primary) hypertension

== ENCOUNTER → 2024-08-23 11:53 | Outpatient (BNVA) | payer BC, SELFPAY | PROVIDERS: PCP Internal Medicine; Visit Provider Internal Medicine | DX: M79.7 Fibromyalgia (principal); K59.00 Constipation, unspecified; R80.1 Persistent proteinuria, unspecified; G89.4 Chronic pain syndrome; I42.9 Cardiomyopathy, unspecified; K21.9 Gastro-esophageal reflux disease without esophagitis; E03.9 Hypothyroidism, unspecified; M32.14 Glomerular disease in systemic lupus erythematosus; M32.12 Pericarditis in systemic lupus erythematosus; I10 Essential (primary) hypertension; I31.9 Disease of pericardium, unspecified; Z91.09 Other allergy status, other than to drugs and biological substances; Z79.899 Other long term (current) drug therapy | CPT/HCPCS: 96127 ==

== ENCOUNTER 2024-08-28 14:49 | Outpatient (REF) | payer BC, SELFPAY ==
--- NOTE | ~2024-08-28 | US_ITS ---
CLINICAL HISTORY: N20.0 - Calculus of kidney US renal Comparison: 09/27/2023 Findings: Right kidney 11.2 cm length. No significant focal abnormality. Left kidney 10.7 cm length. 6 x 9 mm lower pole nonobstructing stone. Small upper and lower pole cysts. No bilateral hydronephrosis. Normal bilateral renal echogenicity. Impression: Nonobstructing left renal stone Otherwise unremarkable This document has been electronically signed by: Clemente Cortes MD on 08/28/2024 20:05:31
--- OUTSIDE RECORDS SUMMARY | 2024-08-28 16:03 | XMS_ITS | Clinical Summary ---
Author Organization [facility] Address [address] [place] [place] [phone] Phone Care Team Providers Care Imagery Analyst Name Role Phone Bryant Alejandra MD Primary Care Provider [phone] Allergies Active Allergy Reactions Criticality Noted Date [...] Of [address] [place] [address] Vance August MD Chronic kidney disease, stage [...] Office Visit [facility] P.. [address] [phone] Lilibeth Berrios ARNP [address] [phone] Health Maintenance Due Date Last Done Comments Breast Cancer Screening 1975 Hepatitis B Vaccine (1 of 3 - 19+ 3-dose series) 11/26 Pneumococcal Vaccine: 50+ Years (1 of 2 - PCV) 993 Colorectal Cancer Screening: Annual FOBT 2022 Colorectal Cancer Screening: Colonoscopy 2022 Colorectal Cancer Screening: Sigmoidoscopy 2022 Influenza Vaccine (#1) 2024 Insurance [facility] Care Teams Imagery Analyst Relationship Specialty Start Date End Date Bryant Alejandra MD [facility] [place] [address] PCP - General Internal Medicine 01/19/24
== END 2024-08-28 14:50 | disposition home or self-care (01) ==
LOC: HO.HMGCX 14:49
PROVIDERS: PCP Internal Medicine; Visit Provider Nurse Practitioner Family
DX: N20.0 Calculus of kidney (principal)
CPT/HCPCS: 76775

== ENCOUNTER → 2024-08-28 14:51 | Outpatient (BNV) | payer BC, SELFPAY | PROVIDERS: PCP Internal Medicine; Visit Provider Radiology Diagnostic Radiology | DX: N20.0 Calculus of kidney (principal) | CPT/HCPCS: 76775 ==

== ENCOUNTER 2024-09-06 15:17 | Outpatient (AMB) | payer BC, SELFPAY ==
--- NOTE | 2024-09-06 15:18 | A.OFFVIS_ITS ---
Intake Visit Reasons: 6 month follow up/ US Intake Note: Patient is Present for 6 MO Follow Up for kidney stones Imaging done:08/28/24 Urology Medication:VIT-B6 Antibiotic Allergies:NONE Blood Thinners:NONE Unit Technician Required: No Accompanied by: Self / Same As Patient Allergies aspirin Allergy (Unknown, Verified 09/06/24 15:43) vomiting, GI upset Medication List - Last Reconciled 09/06/24 by ELIAZAR Cantu acetaminophen (Tylenol) 650 mg (2 x 325 mg) PO Q6H PRN albuterol sulfate 90 mcg/actuation 2 puffs inhalation Q6H PRN cetirizine 10 mg PO DAILY colchicine 0.6 mg PO DAILY 90 days diclofenac sodium 1% 2 grams topical QID fluticasone propionate 50 mcg/actuation 2 sprays intranasal BID gabapentin 100 mg PO DAILY gabapentin 300 mg PO BID 30 days hydroxychloroquine 300 mg (1.5 x 200 mg) PO DAILY 90 days leg brace (Knee Support Brace) As directed levothyroxine (Synthroid) 125 mcg PO DAILY losartan 50 mg PO BID meclizine 25 mg PO DAILY PRN 90 days omeprazole 40 mg (2 x 20 mg) PO DAILY 30 days pyridoxine (vitamin B6) 100 mg PO DAILY 90 days sennosides-docusate sodium 8.6-50 mg (Senokot-S) 2 tab-caps (2 x 8.6-50 mg) PO BEDTIME 90 days HPI Comments Details: Nery is a very pleasant 48-year-old female patient of Dr. Alejandra. She has a past medical history of myositis, hypothyroidism, systemic lupus erythmatosus, urinary tract infection, nephrolithiasis, lupus nephritis, pericarditis associated with systemic lupus, and hypertension. She presents to the office today for a follow up of her nephrolithiasis and complex renal cysts. In discussion with the patient today she reports to be doing and feeling well. 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 She reports she is due to follow-up with nephrology as well. Recent renal imaging results reviewed with the patient today. 09/08 nonobstructing left renal stone measuring 6 x 9 mm in the lower pole. Small upper and lower pole left renal cysts. No hydronephrosis noted bilaterally. Normal bilateral renal echogenicity per radiology report. In office urinalysis results reviewed with the patient today 2+ proteinuria however this is patient's baseline given her history of lupus nephritis. PH 6.0 We did discuss importance of adequate hydration relation to nephrolithiasis as well as overall health and well-being. She denies urinary urgency, urinary frequency, incontinence, nocturia, hematuria, dysuria, changes to urinary stream, fever, flank pain, and or chills. She is happy with her current voiding parameters. When asked she reports compliance with vitamin B6 as prescribed. She otherwise offers no other issues or concerns at this time. Nephrolithiasis Recurrent nephrolithiasis 08/05 presented to emergency department with right-sided flank pain Imaging - 07/05 CT scan left 2.4 cm renal cysts, 6 mm distal right ureteric stone with mild hydroureteronephrosis, 6 mm right renal stone - 09/04 renal ultrasound 6 mm stone in renal pelvis - 09/06 renal ultrasound no stone right, left side complex renal cyst -04/10 CT Urogram no stone on the right, left side complex renal cysts with 5 mm stone left lower pole. -08/08 renal ultrasound 3.3 cm left lower pole renal cysts with septations. Interventions - 08/05 right ureteroscopy laser lithotripsy Stone analysis - unknown Therapeutic plan - on B6 - surveillance imaging [facility] Medical History Acute respiratory disease Well woman exam Foraminal stenosis of cervical region Radiculitis of left cervical region History of pericarditis Kidney stones Other specified hypothyroidism COVID-19 virus infection Cervical radiculopathy Chronic constipation Acute pericarditis Joint pain in fingers of right hand Myositis Hypothyroid SLE (systemic lupus erythematosus) Pericardial effusion Dysplasia of cervix, low grade ([place] 1) 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 Mother No problems noted. 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 Cognitive needs: No Hearing needs: No Vision needs: Yes Female Reproductive History Menstrual Age of Menarche: 10 Review of Systems Const Reports as per HPI Eyes Reports no additional complaints ENT Reports no additional complaints Card Reports no additional complaints Resp Reports no additional complaints GI Reports no additional complaints Reports as per HPI Musc Reports no additional complaints Neuro Reports no additional complaints Psych Reports no additional complaints Endo Reports no additional complaints Physical Exam Const General: cooperative, healthy appearing, comfortable, no acute distress, well developed, alert and awake Orientation/consciousness: patient oriented x3 Limitations: no limitations HEENT Head: Yes normal to inspection, Yes normocephalic and Yes atraumatic Ears: hearing grossly normal bilaterally Eyes General: appearance normal, both eyes and all related structures Neck Neck: Yes normal visual inspection and Yes trachea midline Chest Chest palpation & inspection: normal inspection of the chest Resp Effort & Inspection: normal respiratory effort and able to speak in complete sentences Cardio Rate: regular rate GI Inspection: Yes normal to inspection General: Yes no CVA tenderness Back/Spine/Pelvis Back: no CVA tenderness Skin General skin exam: no rashes or lesions noted Neuro General: patient oriented x3 Extrem General: Yes normal to inspection Psych Appearance: grossly normal and well kempt Mental Status: mental status grossly normal Speech and movement: Normal speech and movement present and Clear speech present Affect: normal affect Attitude: cooperative Thought process: Normal thought process present Thought content: Normal thought content present Insight: Fair insight present (Psych) Judgement: Fair judgement present (Psych) Results AMB Urinalysis, Automated UA Leukoctes 0 Deshaun/uL Last Edit by Chantelle Peck MA on 09/06/24 15:55 UA Nitrite Negative Last Edit by Chantelle Peck MA on 09/06/24 15:55 UA Urobilinogen 3.5 mg/dL Last Edit by Chantelle Peck, NE on 09/06/24 15:55 UA Protein 1.0 mg/dL Last Edit by Chantelle Peck, NE on 09/06/24 15:55 UA pH 6.0 Last Edit by Chantelle Peck, NE on 09/06/24 15:55 UA Blood 10 Partha/uL Last Edit by Chantelle Peck, MA on 09/06/24 15:55 UA Specific Palmer 1.020 Last Edit by Chantelle Peck, NE on 09/06/24 15:55 UA Ketone Negative Last Edit by Chantelle Peck, NE on 09/06/24 15:55 UA Bilirubin 0 mg/dL Last Edit by Chantelle Peck, MA on 09/06/24 15:55 UA Glucose 0 mg/dL Last Edit by Chantelle Peck, NE on 09/06/24 15:55 Results Reviewed Results Reviewed: Laboratory Last Values Urine pH (Auto) 6.0 09/06/24 15:49 Specific Palmer (Auto) 1.020 09/06/24 15:49 Urine Protein (Auto) 1.0 mg/dL 09/06/24 15:49 Glucose (UA)(Auto) 0 mg/dL 09/06/24 15:49 Urine Ketones (Auto) Negative 09/06/24 15:49 Urine Blood (Auto) 10 Partha/uL 09/06/24 15:49 Urine Nitrite (Auto) Negative 09/06/24 15:49 Urine Bilirubin (Auto) 0 mg/dL 09/06/24 15:49 Urine Urobilinogen (Auto) 3.5 mg/dL 09/06/24 15:49 Leukocyte Esterase (Auto) 0 Deshaun/uL 09/06/24 15:49 Date of Service: 08/28/24 Procedure(s): US renal BI Findings: Right kidney 11.2 cm length. No significant focal abnormality. Left kidney 10.7 cm length. 6 x 9 mm lower pole nonobstructing stone. Small upper and lower pole cysts. No bilateral hydronephrosis. Normal bilateral renal echogenicity. Impression: Nonobstructing left renal stone Otherwise unremarkable Assessment & Plan Assessment & Plan (1) Renal calculi: Code(s): N20.0 - Calculus of kidney Category: Medical (2) Renal cyst: Code(s): N28.1 - Cyst of kidney, acquired Category: Medical Plan In office urinalysis results reviewed with the patient today; as noted above. Patient currently denies any bothersome urinary issues or concerns. She reports be happy with current voiding parameters. Discussed and stressed the importance of increase in hydration related to nephrolithiasis as well as overall health and well-being Continue to follow-up with Nephrology and Rheumatology as planned. We did discuss further intervention to include surveillance monitoring verses surgical intervention of nephrolithiasis. Will proceed with surveillance monitoring at this time Will obtain KUB in 3 months Follow-up in 3 months with imaging to be completed prior; or sooner with any issues, concerns, and or questions. Orders: Orders AMB Urinalysis Automated Today Z13.9 - Encounter for screening, unspecified XR KUB 3 Months N20.0 - Calculus of kidney Patient Instructions: The patient had an opportunity to ask questions regarding the treatment plan. All questions were answered. Physical exam, labs, and imaging were discussed and reviewed in detail. As well as risks, benefits, and discussion of treatment choices. No major barriers to understanding were identified. The patient expressed understanding and agreement with the above treatment plan. The patient was made aware they should contact our office by phone for worsening of their current condition, the appearance of new symptoms, or with any questions or concerns. Compliance is encouraged with any medications and follow up testing that is ordered. It is a privilege to be allowed the opportunity to participate in? your urological care.? Again, if you have any questions or concerns If you have any questions or concerns please do not hesitate to contact me. The office is [phone]. This note is constructed using voice recognition software. While every effort has been made to ensure accuracy predictive maintenance specialist errors may have been included. Yours sincerely, ELIAZAR Cantu Coding Level of Care Code Est Pt Level 3 (49096) Complex EM visit Add On G2211 Diagnoses Renal calculi N20.0 Renal cyst N28.1
--- OUTSIDE RECORDS SUMMARY | 2024-09-06 15:42 | XMS_ITS | Clinical Summary ---
Author Organization [facility] Address [address] [place] [id number] Phone Care Team Providers Care Transmission And Coordination Engineer Name Role Phone Bryant Alejandra MD Primary Care Provider [phone] Allergies Active Allergy Reactions Criticality Noted Date [...] Of [place] [address] [place] [address] Vance August MD Chronic kidney disease, stage [...] Care Team (Late st Contact Info) Description 09/14/2024 9:00 AM EDT Office Visit [facility] [address] [phone] Lilibeth Berrios ARNP [address] [phone] Health Maintenance Due Date Last Done Comments Breast Cancer Screening 1975 Hepatitis B Vaccine (1 of 3 - 19+ 3-dose series) 11/26 Pneumococcal Vaccine: 50+ Years (1 of 2 - PCV) 993 Colorectal Cancer Screening: Annual FOBT 2022 Colorectal Cancer Screening: Colonoscopy 2022 Colorectal Cancer Screening: Sigmoidoscopy 2022 Influenza Vaccine (#1) 2024 Insurance [facility] Care Teams Transmission And Coordination Engineer Relationship Specialty Start Date End Date Bryant Alejandra MD [address] [place] [address] PCP - General Internal Medicine 01/19/24
== END 2024-09-06 15:44 | disposition home or self-care (01) ==
LOC: HO.HUSH 15:18
PROVIDERS: PCP Internal Medicine; Visit Provider Nurse Practitioner Family
DX: N20.0 Calculus of kidney (principal); N28.1 Cyst of kidney, acquired; Z13.9 Encounter for screening, unspecified
CPT/HCPCS: 99213

== ENCOUNTER → 2024-09-06 15:17 | Outpatient (BNVA) | payer BC, SELFPAY | PROVIDERS: PCP Internal Medicine; Visit Provider Nurse Practitioner Family | DX: N20.0 Calculus of kidney (principal); N28.1 Cyst of kidney, acquired | CPT/HCPCS: 81003 ==

== ENCOUNTER → 2024-10-02 08:56 | Outpatient (REF) | payer BC, SELFPAY ==
--- NOTE | 2024-10-02 08:58 | CA_ITS ---
Transthoracic Echocardiogram Patient (Last, First, Middle): Neyr Arcos, Gender: Female Date of : 1975 Age: 48 Procedure Date: 10/02/2024 Procedure Type: Transthoracic Echocardiogram Location: OP Height: 152.4 cm Weight: 67.13 kg BSA: 1.64 m2 Heart Rate: bpm BP: 114 / 60 mmHg Recycling Tech: Referring MD: Jose Morataya MD Automatic Edger: Jose Morataya MD Symptoms: I42.9 - Cardiomyopathy, unspecified Study Quality: Good ECG Rhythm: Sinus Conclusions: - 1. Normal LV ejection fraction 55-60% with impaired relaxation filling pattern 2. Normal cardiac valvular Dopplers 3. Normal RV systolic pressure 4. Small pericardial effusion Findings Left Ventricle Normal left ventricular size, thickness, and systolic function. The visually estimated ejection fraction is between 55-60%. Spectral Doppler is indicative of an impaired relaxation filling pattern. E/E prime ratio is between 8 and 15 consistent with indeterminate filling pressures. Right Ventricle Normal right ventricular cavity size and systolic function. Atria The left atrium is normal in size. There is no evidence of interatrial shunt. The right atrium is normal in size. Aortic Valve Normal aortic valve structure and function. There is no aortic valve stenosis. There is no aortic valve regurgitation. Mitral Valve Normal mitral valve structure and function. There is trace mitral valve regurgitation. There is no mitral valve stenosis. Pulmonic Valve The pulmonic valve is likely normal. Tricuspid Valve Normal tricuspid valve structure. There is trace tricuspid valve regurgitation. The right ventricular systolic pressure is normal. The right ventricular systolic pressure is 20 mmHg. Normal right atrial pressure. There is no evidence of pulmonary hypertension. Great Vessels All visible segments of the aorta are normal in size. The pulmonary artery was not well visualized. Venous The inferior vena cava is normal in size and collapses greater than 50% with inspiration. Pericardium/Pleural There is a small circumferential pericardial effusion. Prior Study Comparison No significant change compared to prior study dated: 03/19/2023. Measurements 2D Linear Measurements IVSd: 1.02 0.6-0.9/0.6-1.0 cm LVIDd: 3.87 3.9-5.3/4.2-5.9 cm LVIDd Index: 2.36 2.4-3.2/2.2-3.1 cm/m2 LVIDs: 2.60 2.0-3.6 cm LVPWd: 1.03 0.7-1.1 cm Ao Root: 2.80 2.1-3.5 cm LA Diam: 3.00 2.7-3.8/3.0-4.0 cm LAIDs Index: 1.83 1.5-2.3 cm/m2 LV Mass: 155.49 67-162/88-224 g LV Mass Index: 94.81 43-95/49-115 g/m2 LVOT Diam: 1.90 3.0+(-)1.3 cm 2D Systolic Function EF 4C: 52.90 >55% EF 2C: 54.90 >55% EF BiP: 55.10 >55% Mitral Valve MV VTI: 0.28 MV Pk Raffi: 0.92 MV Mn Raffi: 0.56 MV Pk Grad: 3.00 MV Mn Grad: 1.00 MV Pk E: 0.66 MV PK A: 1.00 MV Decel Time: 181.00 E/A: 0.70 E'Lateral: 4.13 E'Medial: 3.59 E/E' Med: 18.30 E/E' Lat: 15.90 PHT: 53.00 MVA PHT: 4.15 MVA Continuity: 1.88 Decel [place]: 3.63 Aortic Valve AoV Pk Raffi: 1.15 AoV Mn Raffi: 0.83 AoV VTI: 0.22 AoV Pk Grad: 5.00 Aov Mn Grad: 3.00 MAN[place]O Cont.VTI: 2.35 LVOT LVOT Pk Raffi: 0.80 LVOT Mn Raffi: 0.51 LVOT VTI: 0.18 LVOT Pk Grad: 3.00 LVOT Mn Grad: 1.00 LVOT Diam: 1.90 LVOT Area: 2.84 Diastolic Function MV Pk E: 0.66 MV Pk A: 1.00 E/A: 0.70 E'Medial: 3.59 E/E' Med: 18.30 E' Laterial: 4.13 E/E' Lat: 15.90 Right Ventricle TAPSE (mm): 21.00 Tricuspid Valve TR Pk Raffi: 2.05 TR Pk Grad: 17.00 RA Press: 3.00 RVSP: 20.00 Great Vessels Aorta Ao Root-2D: 2.80 2.0-3.7 cm Ao Asc: 3.10 2.1-3.4 cm Pulmonary Veins Pulm Vein S/D 1.30 Pulmonary Valve PV Pk Raffi: 0.84 Peak PV Grad: 3.00 Updated in Other Vendor System with Status of Final Jose Morataya MD electronically signed on 10/03/2024 11:38:52 AM with status of Final
--- OUTSIDE RECORDS SUMMARY | 2024-10-02 09:26 | XMS_ITS | Encounter Summary ---
Author Organization [facility] Address [address] [facility] [address] [place] [address] Phone Care Team Providers Care Leader Assembler Name Role Phone Bryant Alejandra MD Primary Care Provider [phone] Reason for Visit * Reason Comments Med Refill Encounter Details Date Type Department Care Team (Late Contact Info) Description 01/14/2021 Refill [facility] [address] [facility] [address] [place] [address] Irwin Barrientos MD Social History [...] Care Team (Late st Contact Info) Description 10/16/2024 Orders Only [facility] [address] [phone] Lilibeth Berrios ARNP [address] [phone] Chronic kidney disease, stage 2 (mild); Proteinuria, not otherwise specified; Hypertension 12/11/2024 2:45 PM EDT Office Visit [facility] [address] [place] [id number] Adiel Young MD [address] [phone] documented as of this encounter Visit Diagnoses Not on filedocumented in this encounter Care Teams Leader Assembler Relationship Specialty Start Date End Date Bryant Alejandra MD [address] [place] [address] PCP - General Internal Medicine 01/19/24 documented as of this encounter
== END ==
LOC: HO.CARD 08:56
PROVIDERS: PCP Internal Medicine; Visit Provider Internal Medicine Cardiovascular Disease
DX: I42.9 Cardiomyopathy, unspecified (principal)
CPT/HCPCS: 93306

== ENCOUNTER → 2024-10-02 08:58 | Outpatient (BNV) | payer BC, SELFPAY | PROVIDERS: PCP Internal Medicine; Visit Provider Internal Medicine Cardiovascular Disease | DX: I31.39 Other pericardial effusion (noninflammatory) (principal) | CPT/HCPCS: 93306 ==

== ENCOUNTER 2024-10-09 10:22 | Outpatient (AMB) | payer BC, SELFPAY ==
--- NOTE | 2024-10-09 10:24 | MHC.OFFVIS ---
Vital Signs 10/09/24 10:25 Height 5 ft Weight 149 lb 14.629 oz BMI 29.3 BP 120/70 Blood Pressure Location Lt brachial Position Sitting Pulse 93 Intake Visit Reasons: 1 yr f/up-echo Intake Note: 1 year follow-up with ekg c/o still having chest pain Production Support Consultant Required: No Allergies aspirin Allergy (Unknown, Verified 09/06/24 15:43) vomiting, GI upset Medication List - Last Reconciled 10/09/24 by Jose Morataya MD acetaminophen (Tylenol) 650 mg (2 x 325 mg) PO Q6H PRN albuterol sulfate 90 mcg/actuation 2 puffs inhalation Q6H PRN cetirizine 10 mg PO DAILY colchicine 0.6 mg PO DAILY 90 days diclofenac sodium 1% 2 grams topical QID fluticasone propionate 50 mcg/actuation 2 sprays intranasal BID gabapentin 100 mg PO DAILY gabapentin 300 mg PO BID 30 days hydroxychloroquine 300 mg (1.5 x 200 mg) PO DAILY 90 days leg brace (Knee Support Brace) As directed levothyroxine (Synthroid) 125 mcg PO DAILY losartan 50 mg PO BID meclizine 25 mg PO DAILY PRN 90 days omeprazole 40 mg (2 x 20 mg) PO DAILY 30 days pyridoxine (vitamin B6) 100 mg PO DAILY 90 days sennosides-docusate sodium 8.6-50 mg (Senokot-S) 2 tab-caps (2 x 8.6-50 mg) PO BEDTIME 90 days HPI Comments Details: Nery comes for follow-up. She says there has been recent increase in his protein excretion in his kidneys and also diffuse muscle aches. There was concern for further inflammatory changes related to SLE. Her echocardiogram shows persistent normal LV ejection fraction has persistent small pericardial effusion. She says that when she does not take her colchicine she does get the sharp chest pain associated with the pericarditis. She takes colchicine on a regular basis. She also gets chest pain when she is anxious. She says she does not exercise much and has not noticed any clear exertional pattern of chest pain. Denies any prolonged palpitations. Denies any orthopnea, PND, leg edema. [facility] Medical History Acute respiratory disease Well woman exam Foraminal stenosis of cervical region Radiculitis of left cervical region History of pericarditis Kidney stones Other specified hypothyroidism COVID-19 virus infection Cervical radiculopathy Chronic constipation Acute pericarditis Joint pain in fingers of right hand Myositis Hypothyroid SLE (systemic lupus erythematosus) Pericardial effusion Dysplasia of cervix, low grade (BERNADETTE 1) 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 Mother No problems noted. 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 Cognitive needs: No Hearing needs: No Vision needs: Yes Female Reproductive History Menstrual Age of Menarche: 10 Review of Systems Const Denies chills, Denies fatigue, Denies fever(s), Denies frequent falls, Denies weakness, Denies weight gain and Denies weight loss ENT Denies dizziness Card Denies chest pain, Denies leg edema, Denies lightheadedness, Denies palpitations, Denies dyspnea, Denies dyspnea on exertion, Denies orthopnea and Denies other (loss of consciousness) Resp Denies cough, Denies dyspnea and Denies dyspnea on exertion GI Denies hematochezia and Denies change in stool character Musc Denies abnormal gait, Denies muscle weakness, Denies numbness, Denies radiating pain into limb and Denies tingling Neuro Denies abnormal gait, Denies dizziness, Denies frequent falls, Denies numbness, Denies tingling and Denies weakness Endo Denies fatigue and Denies palpitations Physical Exam Vital Signs: Last Vital Signs Pulse 93 10/09/24 10:25 BP 120/70 10/09/24 10:25 BMI result Body Mass Index 29.3 Const General: cooperative, comfortable, no acute distress, alert and awake Nutritional Appearance: overweight Orientation/consciousness: patient oriented x3 Limitations: no limitations Neck Neck: Yes trachea midline, Yes supple and Yes no JVD Resp Effort & Inspection: normal respiratory effort Auscultation: clear to auscultation bilaterally Cardio Jugular venous distension: no JVD Palpation: normal PMI Rate: regular rate Rhythm: regular rhythm Heart sounds: S1 normal heart sound present and S2 normal heart sound present GI Auscultation: normal bowel sounds Skin General skin exam: no rashes or lesions noted Neuro General: patient oriented x3 and no focal motor deficits Extrem General: Yes no clubbing, cyanosis or edema Psych Appearance: grossly normal Office Procedures EKG Details: EKG shows normal sinus rhythm with right bundle-branch block with poor R-wave progression most likely lead placement [id number], Complete Assessment & Plan Assessment & Plan (1) Pericardial effusion: Comment: Foll'd by [facility] Code(s): I31.3 - Pericardial effusion (noninflammatory) Category: Medical Plan: Pericardial effusion with small persists pericardial effusion with intermittent chest pain when she is not taking her colchicine. Continue colchicine for prevention. Consider alternative treatment for lupus says she is having increased suggestion of lupus nephritis and systemic symptoms. Is currently being followed by rheumatology for the same. (2) Cardiomyopathy: Code(s): I42.9 - Cardiomyopathy, unspecified Category: Medical Qualifiers: Cardiomyopathy type: unspecified Qualified Code(s): I42.9 - Cardiomyopathy, unspecified Plan: Prior history of cardiomyopathy which has remained stable on current therapy with normalized LV ejection fraction losartan therapy. Continue the same. Importance of neurohormonal modulation was discussed. Signs and symptoms of heart failure were discussed. Follow-up echocardiogram in 1 year's time. (3) Chest pain: Code(s): R07.9 - Chest pain, unspecified Plan: Intermittent stress-induced chest pain in the patient with lupus. Myocardial perfusion imaging about 4 years ago. Will repeat to assess for any small-vessel coronary artery disease which can be seen in patients with connective tissue disorder to assess for myocardial ischemia. This will be scheduled in near future. Will suggest a vasodilating myocardial perfusion imaging. A does have encouraged her to increase her activity level gradually. Will follow up in the clinic in 1 year's time, sooner p.r.n.. Thank you for allowing me to partake in her care Coding Level of Care Code Est Pt Level 4 (08632) Complex EM visit Add On G2211 Diagnoses Pericardial effusion I31.3 Cardiomyopathy, unspecified type I42.9 Cardiomyopathy type: unspecified Chest pain R07.9 CPT Codes EKG - CPT: 04567-[id number], Complete ([id number])
[2024-10-09 10:25] VITALS: BP 120/70; PULSE 93; BMI 29.3
--- OUTSIDE RECORDS SUMMARY | 2024-10-09 11:31 | XMS_ITS | Encounter Summary ---
Author Organization [facility] Address [address] [facility] [address] [place] [address] Phone Care Team Providers Care Barometers Calibrator Name Role Phone Bryant Alejandra MD Primary Care Provider [phone] Reason for Visit * Reason Comments Med Refill Encounter Details Date Type Department Care Team (Late Contact Info) Description 01/14/2021 Refill [facility] [address] [facility] [address] [place] [address] Irwin Barrientos MD Social History [...] Orders Only [facility] [address] [address] Lilibeth Berrios ARNP [address] [address] Chronic kidney disease, stage 2 (mild); Proteinuria, not otherwise specified; Hypertension 12/11/2024 2:45 PM EDT Office Visit [facility] [address] [place] [phone] Adiel Young MD [address] [address] documented as of this encounter Visit Diagnoses Not on filedocumented in this encounter Care Teams Barometers Calibrator Relationship Specialty Start Date End Date Bryant Alejandra MD [address] [place] [address] PCP - General Internal Medicine 01/19/24 documented as of this encounter
== END 2024-10-09 10:48 | disposition home or self-care (01) ==
LOC: HO.HCS 10:23
PROVIDERS: PCP Internal Medicine; Visit Provider Internal Medicine Cardiovascular Disease
DX: I31.39 Other pericardial effusion (noninflammatory) (principal); I42.9 Cardiomyopathy, unspecified; R07.9 Chest pain, unspecified
CPT/HCPCS: 93010; 99214

== ENCOUNTER → 2024-10-09 10:22 | Outpatient (BNVA) | payer BC, SELFPAY | PROVIDERS: PCP Internal Medicine; Visit Provider Internal Medicine Cardiovascular Disease | DX: R07.9 Chest pain, unspecified (principal) | CPT/HCPCS: 93005 ==

== ENCOUNTER 2024-10-11 08:00 | Emergency (ER) | payer BC, SELFPAY ==
[2024-10-11] VITALS (7 sets, daily range): BP systolic 118–165; BP diastolic 66–91; PULSE 80–100; RESP 16–19; TEMP 35.7–36.6; O2SAT 97–100; BMI 29.4
--- NOTE | ~2024-10-11 | CT_ITS ---
CLINICAL HISTORY: acute diffuse abd pain CT ABDOMEN AND PELVIS WITH CONTRAST Comparison: CT/REG/CO/SR - CT ABDOMEN WITHOUT THEN WITH IV CONTRAST - 04/06/23 09:47 EST Findings: No basilar consolidation or pleural effusion. Small hiatal hernia. Again seen is a small pericardial effusion. No acute abnormalities in the solid organs. Redemonstration of a 4 mm nonobstructing calculus in the left kidney and probable focal cortical scarring. Again seen is a left renal cyst which currently measures 3.5 cm. No large calcified gallstone. No AAA. No bowel obstruction, pneumoperitoneum, or pneumatosis. The descending colon and sigmoid are underdistended thus appearing thick walled. No significant paracolic edema. The appendix is identified. No acute appendicitis. The uterus is anteverted. There is a minimal amount of free fluid in the posterior cul-de-sac. Diffuse wall thickening in the urinary bladder which is poorly distended. Multiple pelvic phleboliths. The bones are intact. IMPRESSION: 1. Diffuse urinary bladder wall thickening secondary to underdistention versus cystitis. 2. No acute obstructive uropathy. Nonobstructing left nephrolithiasis. Stable left renal cyst. 3. Wall thickening in the descending colon and sigmoid likely due to underdistention, less likely colitis in the absence of paracolic edema. 4. Minimal free fluid in the pelvis may be physiologic in etiology. A radiographically occult involuting or ruptured ovarian cyst is included in the differential. 5. Persistent pericardial effusion. This document has been electronically signed by: Marissa Lopez DO on 10/11/2024 18:01:27
--- NOTE | 2024-10-11 08:14 | ECG_ITS ---
Test Reason : chest pain Blood Pressure : */* mmHG Vent. Rate : 78 BPM Atrial Rate : 78 BPM P-R Int : 146 ms QRS Dur : 126 ms QT Int : 414 ms P-R-T Axes : 43 14 35 degrees QTcB Int : 471 ms Normal sinus rhythm Right bundle branch block Abnormal ECG When compared with ECG of 28-Mar-2024 10:52, No significant change was found Referred By: Generic ED Physician Electronically Signed By: SHANDRA ALVAREZ
[2024-10-11 08:32] LABS: MANUAL DIFF FLAG NO
[2024-10-11 08:41] LABS: Hematocrit 38.0 % (37.0-47.0); Hemoglobin 12.9 g/dl (12.0-16.0); Imm Gran Abs Auto 0.01 X10*3/uL (0.00-0.03); Imm Gran Pct Auto 0.2 % (0.0-0.4); Lymphocytes Absolute Auto 1.2 X10*3/uL (1.2-4.9); Mean Corpuscular HGB Conc 33.9 g/dl (31.0-35.0); Mean Corpuscular Hemoglobin 29.8 pg (27.0-33.0); Mean Corpuscular Volume 87.8 fL (80.0-98.0); NRBC Abs Auto 0.000 X10*3/uL (0.0-0.012); NRBC Pct Auto 0.0 /100WBC (0.0-0.2); Platelet Count 185 X10*3/uL (160-400); Red Blood Count 4.33 X10*6/uL (4.20-5.50); White Blood Count 5.0 X10*3/uL (4.8-10.8)
[2024-10-11 08:45] LABS: INTERNATIONAL NORM RATIO 1.0 (0.9-1.1); Prothrombin Time 11.6 SEC (10.9-12.4)
--- OUTSIDE RECORDS SUMMARY | 2024-10-11 08:46 | XMS_ITS | Encounter Summary ---
Author Organization [facility] Address [address] [facility] [address] [place] [address] Phone Care Team Providers Care University Dean Name Role Phone Bryant Alejandra MD Primary Care Provider [phone] Reason for Visit * Reason Comments Med Refill Encounter Details Date Type Department Care Team (Late Contact Info) Description 01/14/2021 Refill [facility] [address] [facility] [address] [place] [address] Irwin Barrientos MD Social History [...] Orders Only [facility] [address] [address] Lilibeth Berrios ARNP [address] [address] Chronic kidney disease, stage 2 (mild); Proteinuria, not otherwise specified; Hypertension 12/11/2024 2:45 PM EDT Office Visit [facility] [address] [place] [phone] Adiel Young MD [address] [address] documented as of this encounter Visit Diagnoses Not on filedocumented in this encounter Care Teams University Dean Relationship Specialty Start Date End Date Bryant Alejandra MD [address] [place] [address] PCP - General Internal Medicine 01/19/24 documented as of this encounter
--- OUTSIDE RECORDS SUMMARY | 2024-10-11 08:46 | XMS_ITS | Clinical Summary ---
Author Organization [facility] Address [address] [place] [phone] Phone Care Team Providers Care Supervisor Ski Production Name Role Phone Bryant Alejandra MD Primary Care Provider [phone] Allergies Active Allergy Reactions Criticality Noted Date Comments Aspirin Other (see comments) 09/10/2020 Medications Cetirizine HCl (ZyrTEC ALLERGY) 10 MG capsule Take 1 capsule by mouth Active colchicine 0.6 MG tabletIndicatio ns:Acute Pericarditis Take 1 tablet by mouth 1 (one) [...] (two) times a day if needed Active losartan (COZAAR) 100 MG tabletIndicatio ns:Chronic kidney disease, stage 2 (mild),Proteinu kati, not otherwise specified,Hyper tension Take 1 tablet (100 mg total) by mouth 1 (one) time each day 30 tablet 5 09/15/19 25 026 Active Cholecalciferol (Vitamin D) 25 MCG (1000 UT) tablet Take 1 tablet by mouth 1 (one) time each day 025 Discontinued(M ed List Maintenance) losartan (COZAAR) 50 MG tabletIndicatio ns:Chronic kidney disease, stage 2 (mild),Proteinu kati, not otherwise specified,Hyper tension TAKE 1 TABLET(50 MG) BY MOUTH 1 TIME EACH DAY 90 tablet 3 07/12/19 25 025 Discontinued Active Problems Problem Noted Date Diagnosed Date Vitamin D deficiency, not otherwise specified Overview (01/19/2024): On oral supplementation Assessment & Plan (01/19/2024 2:33 PM EST): Monitor Vit D 25 level annually Hypertension 05/20/2023 Assessment & Plan (01/19/2024 2:32 PM EST): [...] Chronic kidney disease, stage 2 (mild) Overview (09/14/2024): Assessment & Plan (01/19/2024 2:33 PM EST): Stable Creatinine Normal Lytes Rechecking Renal panel with associated lab work Assessment & Plan (05/20/2023 11:39 PM EDT): Stable Creat 0.8, eGFR 81 as of 04/19/2023 Keep urine protein under good control On ARB Losartan 50 mg QD Rechecking Urine alb/creat ratio Nephrolithiasis 09/15/2020 Overview (01/19/2024): Followed by [facility] Assessment & Plan (01/19/2024 2:31 [...] Encounters Date Type Department Care Team Description 09/14/2024 9:00 AM EDT Office Visit [facility] [address] [address] Lilibeth Berrios ARNP Chronic kidney disease, stage 2 (mild) (Primary Dx); Proteinuria, not otherwise specified; Nephrolithiasis; Hypertension; Vitamin D deficiency, not otherwise specified 09/14/2024 Office Communication [facility] [address] [address] Lilibeth Berrios ARNP from Last 3 Months Family History Medical [...] Sign Reading Time Taken Comments Blood Pressure 130/84 09/14/2024 9:15 AM EDT Pulse 83 09/14/2024 9:15 AM EDT Temperature - - Respiratory Rate - - Oxygen Saturation 99% 09/14/2024 9:15 AM EDT Inhaled Oxygen Concentration - - Weight 69 kg (152 lb 3.2 oz) 09/14/2024 9:15 AM EDT Height 152.4 cm (5') 03/14/2020 12:00 PM EST Body Mass Index 29.72 03/14/2020 12:00 PM EST Plan of Treatment Upcoming Encounters Date Type Department Care Team (Late st Contact Info) Description 10/16/2024 Orders Only [facility] [address] [address] Lilibeth Berrios ARNP [address] [address] Chronic kidney disease, stage 2 (mild); Proteinuria, not otherwise specified; Hypertension 12/11/2024 2:45 PM EDT Office Visit [facility] [address] [place] [address] Adiel Young MD [address] [address] Health Maintenance Due Date Last Done Comments Breast Cancer Screening 1975 Hepatitis B Vaccine (1 of 3 - 19+ 3-dose series) 11/26 Pneumococcal Vaccine: 50+ Years (1 of 2 - PCV) 993 Colorectal Cancer Screening: Annual FOBT 2022 Colorectal Cancer Screening: Colonoscopy 2022 Colorectal Cancer Screening: Sigmoidoscopy 2022 Influenza Vaccine (#1) 2024 Procedures Procedure Name Priority Date/Time Associated Diagnosis Comments VITAMIN D 25 HYDROXY Routine 09/14/2024 1:12 PM EDT Vitamin D deficiency, not otherwise specified PROTEIN / CREATININE RATIO, URINE Routine 09/14/2024 1:12 PM EDT Chronic kidney disease, stage 2 (mild) Proteinuria, not otherwise specified Hypertension Vitamin D deficiency, not otherwise specified URINE ALBUMIN / CREATININE RATIO Routine 09/14/2024 1:12 PM EDT Chronic kidney disease, stage 2 (mild) Proteinuria, not otherwise specified Hypertension Vitamin D deficiency, not otherwise specified CBC Routine 09/14/2024 1:12 PM EDT Chronic kidney disease, stage 2 (mild) Proteinuria, not otherwise specified Hypertension Vitamin D deficiency, not otherwise specified RENAL FUNCTION PANEL Routine 09/14/2024 1:12 PM EDT Chronic kidney disease, stage 2 (mild) Proteinuria, not otherwise specified Hypertension Vitamin D deficiency, not otherwise specified PTH, INTACT Routine 09/14/2024 1:12 PM EDT Chronic kidney disease, stage 2 (mild) Proteinuria, not otherwise specified Hypertension Vitamin D deficiency, not otherwise specified EXT RESULT ENTRY Routine 08/21/2024 from Last 3 Months Results * (ABNORMAL) Urine Protein / creatinine ratio (09/14/2024 1:12 PM EDT) Creatinine, Ur 93.0 Not Estab. mg/dL [facility] Protein, Ur 187.5 Not Estab. mg/dL [facility] Urine Protein/Creati nine Ratio 2,016(H) 0 - 200 mg/g creat [facility] Urine Urine specimen obtained by clean catch procedure / Unknown 09/14/2024 1:12 PM EDT 09/14/2024 us Lilibeth LINARES LAB URINE ORDERABLES Final Result [facility] [address] [place] [phone] * (ABNORMAL) Urine Albumin / Creatinine Ratio (09/14/2024 1:12 PM EDT) Albumin, Urine 1,083.3 Not Estab. ug/mL [facility] [place] Comment: Results confirmed on dilution. Albumin/Creatin ine Ratio 1,165(H) 0 - 29 mg/g creat [facility] Comment: Normal: 0 - 29 Moderately increased: 30 - 300 Severely increased: >300 Urine Urine specimen obtained by clean catch procedure / Unknown 09/14/2024 1:12 PM EDT 09/14/2024 [facility] LAB URINE ORDERABLES Final Result Performing Organization Address City/[facility] Co de Phone Number [facility] [place] [address] [place] [phone] * Vitamin D 25 hydroxy (09/14/2024 1:12 PM EDT) Vitamin D, 25-OH, Total 34.1 30.0 - 100.0 ng/mL [facility] Comment: Vitamin D deficiency has been defined by the [place] of Medicine and an Endocrine Society practice guideline as a level of serum 25-OH vitamin D less than 20 ng/mL (1,2). The Endocrine Society went on to further define vitamin D insufficiency as a level between 21 and 29 ng/mL (2). 1. IOM ([place] of Medicine). 2010. Dietary reference intakes for calcium and D. [place]: The National Academies Press. 2. Leola MF, Alexandre NC, Coleman MILLAN, et al. Evaluation, treatment, and prevention of vitamin D deficiency: an Endocrine Society clinical practice guideline. JCEM. 2010; 96(7):1911-30. Blood Venous blood / Unknown 09/14/2024 1:12 PM EDT 09/14/2024 [facility] LAB BLOOD ORDERABLES Final Result [facility] [address] [place] [address] * CBC (09/14/2024 1:12 PM EDT) WBC 5.2 3.4 - 10.8 x10E3/uL [facility] RBC 4.58 3.77 - 5.28 x10E6/uL [facility] Hemoglobin 13.6 11.1 - 15.9 g/dL [facility] Hematocrit 42.6 34.0 - 46.6 % [facility] MCV 93 79 - 97 fL [facility] MCH 29.7 26.6 - 33.0 pg [facility] MCHC 31.9 31.5 - 35.7 g/dL [facility] RDW 13.1 11.7 - 15.4 % [facility] Platelets 217 150 - 450 x10E3/uL [facility] Blood Venous blood / Unknown 09/14/2024 1:12 PM EDT 09/14/2024 Lilibeth Berrios [facility] LAB BLOOD ORDERABLES Final Result [facility] [address] [place] [address] * PTH, intact (09/14/2024 1:12 PM EDT) PTH 36 15 - 65 pg/mL [facility] Blood Venous blood / Unknown 09/14/2024 1:12 PM EDT 09/14/2024 Lilibeth Berrios [facility] LAB BLOOD ORDERABLES Final Result [facility] [address] [place] [address] * (ABNORMAL) Renal function panel (09/14/2024 1:12 PM EDT) Glucose 81 70 - 99 mg/dL [facility] BUN 18 6 - 24 mg/dL [facility] Creatinine 0.82 0.57 - 1.00 mg/dL [facility] eGFR CKD-EPI CR 2020 87 >59 mL/min/1.7 3 [facility] BUN/Creatinine Ratio 22 9 - 23 [facility] Sodium 140 134 - 144 mmol/L [facility] Potassium 3.9 3.5 - 5.2 mmol/L [facility] Chloride 107(H) 96 - 106 mmol/L [facility] Bicarbonate (CO2) 21 20 - 29 mmol/L [facility] Calcium 9.2 8.7 - 10.2 mg/dL [facility] Albumin 4.0 3.9 - 4.9 g/dL [facility] Phosphorus 3.6 3.0 - 4.3 mg/dL [facility] Blood Venous blood / Unknown 09/14/2024 1:12 PM EDT 09/14/2024 Lilibeth [facility] LAB BLOOD ORDERABLES Final Result [facility] [address] [place] [address] * (ABNORMAL) EXT RESULT ENTRY (08/21/2024) Sodium 141 137 - 147 Potassium 3.6 3.4 - 5.5 Chloride 111.0(A) 99.0 - 108.0 Carbon Dioxide 25 mmol/L Anion Gap 9 <=30 MMOL/L Glucose 76 60 - 200 BUN 17 4 - 21 mg/dL Creatinine 1.04 0.50 - 1.10 mg/dL Albumin 3.8 3.5 - 5.0 g/dL Calcium 8.9 8.7 - 10.7 mg/dL eGFR 56 08/21/2024 us Historical Provider LAB BLOOD ORDERABLES Tamia l Result from Last 3 Months Insurance Care Teams Supervisor Ski Production Relationship Specialty Start Date End Date Bryant Alejandra MD [address] [facility] [place] [address] PCP - General Internal Medicine 01/19/24
--- OUTSIDE RECORDS SUMMARY | 2024-10-11 08:46 | XMS_ITS | Encounter Summary ---
Author Organization [facility] Address [address] [address] Phone Care Team Providers Care Boat Dispatcher Name Role Phone Bryant Alejandra MD Primary Care Provider [phone] Encounter Details Date Type Department Care Team (Late Contact Info) Description 09/14/2024 Office Communication [facility] [address] [place] [address] Lilibeth Berrios ARNP [address] [address] Social History Tobacco Use Types Packs/Day Years Used Date Smoking Tobacco: Some Days Cigarettes Smokeless Tobacco: Never Alcohol Use Standard Drinks/Week [...] Encounters Date Type Department Care Team (Late Contact Info) Description 10/16/2024 Orders Only [facility] [address] [place] [address] Lilibeth Berrios ARNP [address] [address] Chronic kidney disease, stage 2 (mild); Proteinuria, not otherwise specified; Hypertension 12/11/2024 2:45 PM EDT [facility] Visit [facility] [address] [place] [address] Adiel Young MD [address] [address] documented as of this encounter Visit Diagnoses Not on filedocumented in this encounter Care Teams Boat Dispatcher Relationship Specialty Start Date End Date Bryant Alejandra MD [address] [place] [address] PCP - General Internal Medicine 01/19/24 documented as of this encounter
[2024-10-11 08:52] LABS: IDNOW Serial# 58CA691E; Influenza B2 Negative (Negative)
[2024-10-11 08:53] LABS: COVID-19 Test Negative (Negative); IDNOW Serial# 08D9AD1C
[2024-10-11 09:08] LABS: Alanine Aminotransferase 17 U/L (0-31); Albumin Level 4.0 g/dL (3.5-5.0); Alkaline Phosphatase 65 U/L (39-117); Anion Gap 9 (12-20); Aspartate Amino Transferase 25 U/L (5-31); Blood Urea Nitrogen 17 mg/dL (9-16); Calcium 9.5 mg/dL (8.4-10.2); Carbon Dioxide 24 mmol/L (22-29); Chloride 111 mmol/L (96-108); Creatinine Clr Calc Pharmacy 61.7; Estimated Glomerular Filt Rate > 60; Magnesium 1.8 mg/dL (1.6-2.6); Potassium 4.1 mmol/L (3.3-5.1); Sodium 140 mmol/L (135-145); Total Protein 7.1 g/dL (6.5-8.0)
[2024-10-11] MEDS: Lactated Ringers 1,000 ML 999 ML IV ×2 (10:39→14:49)
[2024-10-11 11:07] LABS: Thyroid Stimulating Hormone 0.05 uIU/mL (0.32-4.0)
[2024-10-11 11:54] LABS: Appearance Urine Clear; Glucose Urine UA Negative (Negative); PH 8.0 (5.0-9.0); Specific Gravity - Urine 1.010 (1.005-1.025); UMIC TRIGGER UACC YES
[2024-10-11 11:55] LABS: UPreg QC Valid YES
[2024-10-11 12:02] LABS: Cannabinoid Screen Urine POSITIVE (Not Detect)
--- NOTE | 2024-10-11 12:03 | ED.CHESTPAIN ---
HPI - Chest Pain General Chief Complaint: Chest Pain Stated Complaint: CP,N/V/D PER EMS Time Seen by Provider: 10/11/24 09:04 Source: patient, EMS and RN notes reviewed Mode of arrival: EMS Limitations: no limitations History of Present Illness ED Provider: Nicole Elizondo PA-C HPI narrative: 48-year-old female with medical history of fibromyalgia, vertigo, SLE, hypothyroid, HTN, cardiomyopathy, chronic pericarditis presents to the ED due to chest pain, nausea, vomiting. Patient states she was awoken from sleep due to nausea and promptly vomited with diarrhea and associated dizziness. 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 Patient also reports a history of vertigo and states her dizziness feels similar and is worsened when turning her head, and standing up. Patient reports she was not concerned over chest pain and dizziness as these symptoms are chronic for her and feels same to her baseline, however was concerned over vomiting and diarrhea. Patient denies eating at restaurants, states she had chicken breast for dinner last night that she cooked at home. Additionally patient states she was COVID positive 2 weeks ago but states her symptoms have resolved. Patient states she traveled recently to [place] left on 10/05 and returned on Sunday 10/08. Patient denies sick contacts, sick contacts in [place]. Related Data Home Medications ?Medication ?Instructions ?Recorded ?Confirmed losartan 50 mg tablet 50 mg PO BID 12/13/19 10/09/24 Previous Rx's ?Medication ?Instructions ?Recorded omeprazole 20 mg capsule,delayed 40 mg (2 x 20 mg) PO DAILY 30 days 10/26/22 release #60 caps pyridoxine (vitamin B6) 100 mg 100 mg PO DAILY 90 days #90 tabs 04/23/23 tablet acetaminophen 325 mg capsule 650 mg (2 x 325 mg) PO Q6H PRN 08/28/23 (Tylenol) pain #30 caps colchicine 0.6 mg capsule 0.6 mg PO DAILY 90 days #90 caps 11/24/23 leg brace (Knee Support Brace) #1 ea 02/29/24 gabapentin 100 mg capsule 100 mg PO DAILY #90 caps 03/15/24 meclizine 25 mg tablet 25 mg PO DAILY PRN Insomnia 90 03/16/24 days #90 tabs albuterol sulfate 90 mcg/actuation 2 puff inhalation Q6H PRN 03/28/24 aerosol inhaler shortness of breath or wheezing #8.5 grams gabapentin 300 mg capsule 300 mg PO BID 30 days #60 caps 04/14/24 diclofenac sodium 1 % topical gel 2 g topical QID #100 grams 04/20/24 hydroxychloroquine 200 mg tablet 300 mg (1.5 x 200 mg) PO DAILY 90 04/20/24 days #135 tabs cetirizine 10 mg tablet 10 mg PO DAILY #30 tabs 04/27/24 fluticasone propionate 50 2 spray intranasal BID #16 grams 04/27/24 mcg/actuation nasal spray,suspension sennosides 8.6 mg-docusate sodium 2 tab-cap (2 x 8.6-50 mg) PO 08/15/24 50 mg tablet (Senokot-S) BEDTIME constipation 90 days #180 tabs levothyroxine 125 mcg tablet 125 mcg PO DAILY #90 tabs 08/23/24 (Synthroid) Allergies Allergy/AdvReac Type Severity Reaction Status Date / Time aspirin Allergy Unknown vomiting, Verified 10/11/24 08:10 GI upset Review of Systems Review of Systems: CONST: Negative for fever, body aches and chills. HENT: Negative for neck pain/stiffness, headache, congestion, sore throat, swelling. EYES: Negative for discharge/pain or vision changes. RESP: Negative for cough/hemoptysis and shortness of breath. CV: Negative difficulty breathing, palpitations. POS chest pain ABD: Negative pain. POS nausea, vomiting : Negative increase frequency, dysuria, blood in urine or stool. MUSC: Negative for muscle aches, edema. SKIN: Negative rash, lesions/sores. NEURO: Negative headache, dizziness, weakness. 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 Mother No problems noted. Social History Social History Household Members: Significant Other and Children Housing: House Are you a primary long term care administrator to a significant other at home: No Do you presently have visiting nurse or other home services: No Alcohol intake: never Patient Tobacco Use Status: Former Tobacco user Tobacco use type: Cigarette Cigarette Packs Per Day: 0 Smoked in Last 30 Days: Yes e-Cigarette/Vaping Use: Currently Using Use of substances other than those prescribed or required for medical reasons: No Substance Use Type: Marijuana Any prior treatment program specific to substance use: No Advance Directives: No Advance Directives Information Provided: Yes Patient : No service: No Current occupational status: employed 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, 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 Cognitive needs: No Hearing needs: No Vision needs: Yes Physical Exam Vital Signs: Vital Signs: Last Vital Signs Temp 97.9 F 10/11/24 17:57 Pulse 100 10/11/24 17:57 Resp 19 10/11/24 17:57 BP 132/91 H 10/11/24 17:57 Pulse Ox 100 10/11/24 17:57 O2 Del Method Room Air 10/11/24 17:57 BMI result Body Mass Index 29.4 Medications Administered Discontinued Medications Generic Name Dose Route Start Last Admin Trade Name Freq PRN Reason Stop Dose Admin Lactated Ringer's 1,000 mls @ 999 mls/hr 10/11/24 10:25 10/11/24 11:40 Lr IV 10/11/24 11:25 Infused .Q1H1M ONE Infusion Lactated Ringer's 1,000 mls @ 999 mls/hr 10/11/24 13:00 10/11/24 14:49 Lr IV 10/11/24 14:00 999 mls/hr .Q1H1M ONE Administration Iohexol 100 ml 10/11/24 17:25 10/11/24 17:30 Iohexol 350 Mg/Ml 100 Ml Infus..Btl IV 10/11/24 17:26 85 ml ONCE ONE Administration Meclizine HCl 25 mg 10/11/24 10:25 10/11/24 10:37 Meclizine Hcl 25 Mg Tablet PO 10/11/24 10:26 25 mg ONCE ONE Administration Metoclopramide HCl 10 mg 10/11/24 13:00 10/11/24 14:49 Metoclopramide Hcl 10 Mg/2 Ml Vial IVPUSH 10/11/24 13:01 10 mg ONCE ONE Administration Ondansetron HCl 4 mg 10/11/24 10:25 10/11/24 10:35 Ondansetron Hcl 4 Mg/2 Ml Vial IVPUSH 10/11/24 10:26 4 mg ONCE ONE Administration Medical Decision Making Medical Decision Making MDM Narrative: 1-year-old female with medical history of fibromyalgia, vertigo, SLE, hypothyroid, HTN, cardiomyopathy, chronic pericarditis presents to the ED due to chest pain, nausea, vomiting. Patient states she was awoken from sleep due to nausea and promptly vomited with diarrhea and dizziness. 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 Patient also reports a history of vertigo and states her dizziness feels similar and is worsened when turning her head, and standing up. Patient reports she was not concerned over chest pain and dizziness as these symptoms are chronic for her and feels same to her baseline, however was concerned over vomiting and diarrhea. Patient denies eating at restaurants, states she had chicken breast for dinner last night that she cooked at home. Additionally patient states she was COVID positive 2 weeks ago but states her symptoms have resolved. Patient states she traveled recently to [place] left on 10/05 and returned on Sunday 10/08. Patient denies sick contacts, sick contacts in [place]. VS on initial observation-BP 134/81, pulse rate of 90, respiratory rate of 16, afebrile with oral temp of 97.9?, O2 saturation 97% on room air. On physical exam lungs clear to auscultation bilaterally, normal S1/S2 no murmurs/rubs/gallops, abdomen soft, nontender, nondistended, no calf tenderness, Homans sign negative. Dizziness is elicited when patient is following my finger with her eyes, no nystagmus noted. EKG reveals normal sinus rhythm with a right bundle-branch block, no ST-elevation/depression, T-wave abnormality, initial troponin 32.2, 2nd troponin 37.6 this is a negative delta. Labs without leukocytosis/leukopenia, H&H stable, TSH is low at 0.05, free T4 is 1.99 UA reveals 2+ urine protein, 1+ urine blood, 6-10 urine RBCs, negative leukocyte esterase, nitrites and urine bacteria. Course 17:45- Patient has been medicated with 2 L IV fluids, 10 milligrams metoclopramide, 25 milligrams meclizine, 4 milligrams Zofran with good effect of nausea and dizziness. Patient is still experiencing some diffuse abdominal pain of the epigastric and periumbilical area, this finding with urine blood we will obtain CT abdomen to evaluate for acute abdomen and/or obstructive pathology. 18:39- CT abdomen and pelvis without obstructive pathology or acute abdomen. I counseled patient to follow up with her primary care doctor in order to discuss concerns of being overmedicated with levothyroxine causing decreased TSH of 0.05, this may be contributing to her diarrheal symptoms. Patient did not have any episodes of diarrhea while in the department today. Patient states dizziness and nausea has resolved at this time, feels comfortable to go home for self-care. Differential Diagnosis Differential Diagnoses: The differential diagnosis associated with the presentation includes ACS Acute abdomen Obstructive nephrolithiasis Dysrhythmia BPPV Admission/Observation Consideration of admission/observation: Escalation of care including admission/observation considered Lab Data MDM Lab Attestation statement: I reviewed the patient's lab results. 10/11/24 08:27 10/11/24 08:27 Labs: Lab Results 10/11/24 10/11/24 10/11/24 Range/Units 08:25 08:26 08:27 WBC 5.0 (4.8-10.8) X10*3/uL RBC 4.33 (4.20-5.50) X10*6/uL Hgb 12.9 (12.0-16.0) g/dl Hct 38.0 (37.0-47.0) % MCV 87.8 (80.0-98.0) fL MCH 29.8 (27.0-33.0) pg MCHC 33.9 (31.0-35.0) g/dl RDW 12.6 (11.0-16.0) % Plt Count 185 (160-400) X10*3/uL MPV 10.9 (9.4-12.3) fL Immature Gran % (Auto) 0.2 (0.0-0.4) % Neut % (Auto) 67.9 (45-73) % Lymph % (Auto) 23.8 (20-40) % [place] % (Auto) 6.7 (2-11) % Eos % (Auto) 1.2 (0-4) % Baso % (Auto) 0.2 (0-2) % Lymph # (Auto) 1.2 (1.2-4.9) X10*3/uL [place] # (Auto) 0.3 (0.1-1.2) X10*3/uL Eos # (Auto) 0.1 (0.0-0.4) X10*3/uL Baso # (Auto) 0.0 (0.0-0.2) X10*3/uL Abs Immat Gran (auto) 0.01 (0.00-0.03) X10*3/uL Absolute Neuts (auto) 3.4 (2.0-8.3) x10*3/uL Absolute Nucleated RBC 0.000 (0.0-0.012) X10*3/uL Nucleated RBC % (auto) 0.0 (0.0-0.2) /100WBC PT 11.6 (10.9-12.4) SEC INR 1.0 (0.9-1.1) Sodium 140 (135-145) mmol/L Potassium 4.1 (3.3-5.1) mmol/L Chloride 111 H (96-108) mmol/L Carbon Dioxide 24 (22-29) mmol/L Anion Gap 9 L (12-20) BUN 17 H (9-16) mg/dL Creatinine 0.94 (0.5-1.4) mg/dL Estim Creat Clear Calc 61.7 Estimated GFR > 60 Random Glucose 104 (60-115) mg/dL Calcium 9.5 D (8.4-10.2) mg/dL Magnesium 1.8 (1.6-2.6) mg/dL Total Bilirubin 0.4 (0.0-1.0) mg/dL AST 25 (5-31) U/L ALT 17 (0-31) U/L Alkaline Phosphatase 65 (39-117) U/L Troponin I High Sens 32.2 H D (<3.5-17.0) ng/L Total Protein 7.1 (6.5-8.0) g/dL Albumin 4.0 (3.5-5.0) g/dL TSH 0.05 L (0.32-4.0) uIU/mL Free T4 1.21 (0.71-1.85) ng/dL Urine Color Urine Appearance Urine pH (5.0-9.0) Ur Specific Rogers (1.005-1.025) Urine Protein (Neg-Trace) mg/dL Urine Glucose (UA) (Negative) mg/dL Urine Ketones (Negative) mg/dL Urine Blood (Negative) Urine Nitrite (Negative) Ur Leukocyte Esterase (Negative) Urine RBC (0-2) /HPF Urine WBC (0-5) /HPF Ur Squamous Epith Cells (0-2) /HPF Urine Bacteria (None Seen) Hyaline Casts (0-2) /LPF Urine Test (NEGATIVE) Urine Opiates Screen (Not Detect) Ur Buprenorphine Scrn (Not Detect) ng/mL Ur Oxycodone Screen (Not Detect) ng/mL Urine Methadone Screen (Not Detect) ng/mL Urine Fentanyl Screen (Not Detect) Ur Barbiturates Screen (Not Detect) Ur Phencyclidine Scrn (Not Detect) Ur Amphetamines Screen (Not Detect) U Benzodiazepines Scrn (Not Detect) Urine Cocaine Screen (Not Detect) U Marijuana (THC) Screen (Not Detect) COVID-19 (CHUCKY) Negative (Negative) COVID-19 Clin Com See Note Influenza Type A (ANDREA) Negative (Negative) Influenza Type B (ANDREA) Negative (Negative) Influenza A & B Note See Note 10/11/24 10/11/24 Range/Units 11:46 13:55 WBC (4.8-10.8) X10*3/uL RBC (4.20-5.50) X10*6/uL Hgb (12.0-16.0) g/dl Hct (37.0-47.0) % MCV (80.0-98.0) fL MCH (27.0-33.0) pg MCHC (31.0-35.0) g/dl RDW (11.0-16.0) % Plt Count (160-400) X10*3/uL MPV (9.4-12.3) fL Immature Gran % (Auto) (0.0-0.4) % Neut % (Auto) (45-73) % Lymph % (Auto) (20-40) % [place] % (Auto) (2-11) % Eos % (Auto) (0-4) % Baso % (Auto) (0-2) % Lymph # (Auto) (1.2-4.9) X10*3/uL [place] # (Auto) (0.1-1.2) X10*3/uL Eos # (Auto) (0.0-0.4) X10*3/uL Baso # (Auto) (0.0-0.2) X10*3/uL Abs Immat Gran (auto) (0.00-0.03) X10*3/uL Absolute Neuts (auto) (2.0-8.3) x10*3/uL Absolute Nucleated RBC (0.0-0.012) X10*3/uL Nucleated RBC % (auto) (0.0-0.2) /100WBC PT (10.9-12.4) SEC INR (0.9-1.1) Sodium (135-145) mmol/L Potassium (3.3-5.1) mmol/L Chloride (96-108) mmol/L Carbon Dioxide (22-29) mmol/L Anion Gap (12-20) BUN (9-16) mg/dL Creatinine (0.5-1.4) mg/dL Estim Creat Clear Calc Estimated GFR Random Glucose (60-115) mg/dL Calcium (8.4-10.2) mg/dL Magnesium (1.6-2.6) mg/dL Total Bilirubin (0.0-1.0) mg/dL AST (5-31) U/L ALT (0-31) U/L Alkaline Phosphatase (39-117) U/L Troponin I High Sens 37.6 H (<3.5-17.0) ng/L Total Protein (6.5-8.0) g/dL Albumin (3.5-5.0) g/dL TSH (0.32-4.0) uIU/mL Free T4 1.99 H (0.71-1.85) ng/dL Urine Color Yellow Urine Appearance Clear Urine pH 8.0 (5.0-9.0) Ur Specific [place] 1.010 (1.005-1.025) Urine Protein 100 (2+) H (Neg-Trace) mg/dL Urine Glucose (UA) Negative (Negative) mg/dL Urine Ketones Negative (Negative) mg/dL Urine Blood Small (1+) H (Negative) Urine Nitrite Negative (Negative) Ur Leukocyte Esterase Negative (Negative) Urine RBC 6-10 H (0-2) /HPF Urine WBC 0-5 (0-5) /HPF Ur Squamous Epith Cells 0-2 (0-2) /HPF Urine Bacteria None Seen (None Seen) Hyaline Casts 0-2 (0-2) /LPF Urine Test NEGATIVE (NEGATIVE) Urine Opiates Screen Not Detected (Not Detect) Ur Buprenorphine Scrn Not Detected (Not Detect) ng/mL Ur Oxycodone Screen Not Detected (Not Detect) ng/mL Urine Methadone Screen Not Detected (Not Detect) ng/mL Urine Fentanyl Screen Not Detected (Not Detect) Ur Barbiturates Screen Not Detected (Not Detect) Ur Phencyclidine Scrn Not Detected (Not Detect) Ur Amphetamines Screen Not Detected (Not Detect) U Benzodiazepines Scrn Not Detected (Not Detect) Urine Cocaine Screen Not Detected (Not Detect) U Marijuana (THC) Screen POSITIVE H (Not Detect) COVID-19 (CHUCKY) (Negative) COVID-19 Clin Com Influenza Type A (ANDREA) (Negative) Influenza Type B (ANDREA) (Negative) Influenza A & B Note Independent Interpretation I performed an independent interpretation of an: EKG and CT Scan Interpretation: I independently interpreted the EKG which reveals normal sinus rhythm with a right bundle branch block, no ST-elevation/depression, T-wave abnormality no changes seen when compared with prior EKG Vent. Rate : 78 BPM Atrial Rate : 78 BPM P-R Int : 146 ms QRS Dur : 126 ms QT Int : 414 ms P-R-T Axes : 43 14 35 degrees QTcB Int : 471 ms Normal sinus rhythm Right bundle branch block Abnormal ECG When compared with ECG of 11-Feb-2025 10:52, No significant change was found CT abdomen pelvis without obstructive pathology, with persistent pericardial effusion, I agree with the radiologist's interpretation Radiology Impression Discussion of test interpretation with radiology: I have reviewed the radiologist's reading. Radiologist Impression: CT abdomen/pelvis Findings: No basilar consolidation or pleural effusion. Small hiatal hernia. Again seen is a small pericardial effusion. No acute abnormalities in the solid organs. Redemonstration of a 4 mm nonobstructing calculus in the left kidney and probable focal cortical scarring. Again seen is a left renal cyst which currently measures 3.5 cm. No large calcified gallstone. No AAA. No bowel obstruction, pneumoperitoneum, or pneumatosis. The descending colon and sigmoid are underdistended thus appearing thick walled. No significant paracolic edema. The appendix is identified. No acute appendicitis. The uterus is anteverted. There is a minimal amount of free fluid in the posterior cul-de-sac. Diffuse wall thickening in the urinary bladder which is poorly distended. Multiple pelvic phleboliths. The bones are intact. IMPRESSION: 1. Diffuse urinary bladder wall thickening secondary to underdistention versus cystitis. 2. No acute obstructive uropathy. Nonobstructing left nephrolithiasis. Stable left renal cyst. 3. Wall thickening in the descending colon and sigmoid likely due to underdistention, less likely colitis in the absence of paracolic edema. 4. Minimal free fluid in the pelvis may be physiologic in etiology. A radiographically occult involuting or ruptured ovarian cyst is included in the differential. 5. Persistent pericardial effusion. This document has been electronically signed by: Marissa Lopez DO on 10/11/2024 18:01:27 Dictated By: Marissa Lopez MD Signed By: <Electronically signed by Marissa Lopez MD in [place]> 10/11/24 1802 External Record Review External record reviewed: Inpatient record, Office record and Outpatient record Chronic Conditions Patient?s care impacted by: Other (ibromyalgia, vertigo, SLE, hypothyroid, HTN, cardiomyopathy, chronic pericarditis) Social Determinants Patient?s care significantly limited by Social Determinants of Health including: Other Social Determinant of Health Discharge Plan Discharge Clinical Impression: Vertigo Patient Disposition: Home, Self-Care Instructions: Vertigo (ED) Additional Instructions: You were evaluated in the emergency department today due to nausea, vomiting, diarrhea. Your blood work was negative for infection, no electrolyte abnormality, your kidney function was stable today. Your thyroid stimulating hormone (TSH) was very low at 0.05 I recommend you calling your primary care doctor tomorrow to discuss whether you should decrease your dose of levothyroxine. You did not have any episodes of diarrhea while in the department today, however if diarrhea persists I would speak to your primary care provider about this issue as well for further evaluation and management. Continue to take your medication as prescribed. Please return to the emergency department if you experience fevers over 100.4 degrees, chills, worsening abdominal pain, persistent nausea and vomiting, chest pain, shortness of breath, or any new/worsening/concerning symptoms. Prescriptions: No Action colchicine 0.6 mg capsule 0.6 mg PO DAILY 90 Days Qty: 90 3RF (DME) Knee Support Brace Misc See Rx Instructions .Route Qty: 1 0RF Rx Instructions: As directed gabapentin 100 mg capsule 100 mg PO DAILY Qty: 90 0RF meclizine 25 mg tablet 25 mg PO DAILY PRN (Reason: Insomnia) 90 Days Qty: 90 3RF gabapentin 300 mg capsule 300 mg PO BID 30 Days Qty: 60 0RF acetaminophen [Tylenol] 325 mg capsule 650 mg PO Q6H PRN (Reason: pain) Qty: 30 0RF albuterol sulfate 90 mcg/actuation HFA aerosol inhaler 2 puff inhalation Q6H PRN (Reason: shortness of breath or wheezing) Qty: 8.5 0RF losartan 50 mg tablet 50 mg PO BID omeprazole 20 mg capsule,delayed release(DR/EC) 40 mg PO DAILY 30 Days Qty: 60 5RF hydroxychloroquine 200 mg tablet 300 mg PO DAILY 90 Days Qty: 135 1RF diclofenac sodium 1 % gel 2 g topical QID Qty: 100 5RF Rx Instructions: apply to affected area every 4-6 hours PRN sennosides-docusate sodium [Senokot-S] 8.6-50 mg tablet 2 tab-cap PO BEDTIME 90 Days Qty: 180 1RF pyridoxine (vitamin B6) 100 mg tablet 100 mg PO DAILY 90 Days Qty: 90 1RF cetirizine 10 mg tablet 10 mg PO DAILY Qty: 30 0RF Rx Instructions: TAKE IT DIRECTED fluticasone propionate 50 mcg/actuation spray,suspension 2 spray intranasal BID Qty: 16 0RF levothyroxine [Synthroid] 125 mcg tablet 125 mcg PO DAILY Qty: 90 1RF Print Language: Tamazight
[2024-10-11 12:44] LABS: Troponin-I High Sensitivity 32.2 ng/L (<3.5-17.0)
[2024-10-11 13:15] LABS: Free T4 (Free Thyroxine) 1.21 ng/dL (0.71-1.85)
[2024-10-11 14:24] LABS: Troponin-I High Sensitivity 37.6 ng/L (<3.5-17.0)
[2024-10-11 14:38] LABS: Free T4 (Free Thyroxine) 1.99 ng/dL (0.71-1.85)
[2024-10-11] MEDS: iohexoL 350 MG/ML 100 ML INFUS..BTL IV (17:30)
== END 2024-10-11 23:16 | disposition home or self-care (01) ==
PROVIDERS: Emergency Provider Emergency Medicine; PCP Internal Medicine
DX: R42 Dizziness and giddiness (principal); R07.9 Chest pain, unspecified; R11.2 Nausea with vomiting, unspecified; R19.7 Diarrhea, unspecified; M32.12 Pericarditis in systemic lupus erythematosus; I10 Essential (primary) hypertension; Z79.899 Other long term (current) drug therapy
CPT/HCPCS: 36415; 74177; 80053; 80307; 81001; 81025; 83735; 84439; 84443; 84481; 84484; 85025; 85610; 87502; 87635; 93005; 96361; 96374; 96375; 99285; J2405; J2765; J7120; Q9967

== ENCOUNTER → 2024-10-11 08:14 | Outpatient (BNV) | payer BC, SELFPAY | PROVIDERS: Emergency Provider Emergency Medicine; PCP Internal Medicine; Visit Provider Internal Medicine | DX: I45.10 Unspecified right bundle-branch block (principal) | CPT/HCPCS: 93010 ==

== ENCOUNTER → 2024-10-11 15:06 | Outpatient (BNV) | payer BC, SELFPAY | PROVIDERS: Emergency Provider Emergency Medicine; PCP Internal Medicine; Visit Provider Radiology Diagnostic Radiology | DX: N20.0 Calculus of kidney (principal) | CPT/HCPCS: 74177 ==

== ENCOUNTER 2024-10-13 11:21 | Outpatient (AMB) | payer BC, SELFPAY ==
[2024-10-13 11:22] VITALS: BP 124/80; PULSE 78; RESP 18; TEMP 36.9; O2SAT 99; BMI 29.1
--- NOTE | 2024-10-13 11:22 | MHC.PC.OV ---
Vital Signs 10/13/24 11:22 Height 5 ft Weight 149 lb BMI 29.1 BP 124/80 Blood Pressure Location Rt brachial Position Sitting Respiration 18 Pulse 78 Pulse Source Pulse Oximeter Temp 98.5 F Temp Source Oral Pulse Oximetry (%) 99 Oxygen Delivery Method Room Air Intake Visit Reasons: low thyroid level Allergies aspirin Allergy (Unknown, Verified 10/13/24 11:22) vomiting, GI upset Medication List - Last Reconciled 10/13/24 by Bryant Alejandra MD acetaminophen (Tylenol) 650 mg (2 x 325 mg) PO Q6H PRN albuterol sulfate 90 mcg/actuation 2 puffs inhalation Q6H PRN cetirizine 10 mg PO DAILY colchicine 0.6 mg PO DAILY 90 days diclofenac sodium 1% 2 grams topical QID fluticasone propionate 50 mcg/actuation 2 sprays intranasal BID gabapentin 100 mg PO DAILY gabapentin 300 mg PO BID 30 days hydroxychloroquine 300 mg (1.5 x 200 mg) PO DAILY 90 days leg brace (Knee Support Brace) As directed levothyroxine 100 mcg PO DAILY 90 days losartan 100 mg PO DAILY meclizine 25 mg PO DAILY PRN 90 days omeprazole 40 mg (2 x 20 mg) PO DAILY 30 days pyridoxine (vitamin B6) 100 mg PO DAILY 90 days sennosides-docusate sodium 8.6-50 mg (Senokot-S) 2 tab-caps (2 x 8.6-50 mg) PO BEDTIME 90 days Tobacco use date assessed: 10/13/24 Dental Screening Dental Screen Date: 05/09/24 HPI low thyroid level HPI Details Patient was in emergency room [facility] dated 10/11/2024 With a chief complaint of chest pain She has a history of fibromyalgia, previous history of vertigo, SLE, hypothyroidism, hypertension, cardiomyopathy, chronic pericarditis She was also having increasing vertigo Patient had a COVID positive 2 weeks before And returned from [place] on 08 of October after staying there for 4 days EKG revealed normal sinus rhythm right bundle branch block no ST elevation or depression T-wave abnormality Initial troponin was 32.2nd troponin 37.6 Labs without leukocytosis or leukopenia, H&H stable, TSH came back at 0.05, free T4 1.99 UA revealed 2+ protein, 1+ blood, negative leuk esterase nitrite and bacteria She was treated with 2 L of IV fluids and metoclopramide along with meclizine and Zofran CT scan of abdomen was done to evaluate the epigastric periumbilical pain she was experiencing in emergency room CT scan came back without any sign of obstructive pathology or acute abdomen She was recommended to see primary care to have her thyroid medication adjusted might be causing increasing diarrhea She was discharged with a diagnosis of vertigo without any new medications Her medication list includes colchicine 0.6 mg for chronic pericarditis Gabapentin 100 mg for body aches and pains in the morning And 300 at night with 300 as needed Meclizine Tylenol Losartan 50 mg b.i.d. Omeprazole 20 mg Hydroxychloroquine for lupus through Rheumatology Senokot for constipation patient has IBS Vitamin B6 Cetirizine Flonase nasal spray And Levothyroxine 125 mcg Her TSH level was above 4.0 in August that is when we adjusted her medication from 100 mcg to 125 mcg She tells me that her abdominal symptoms started a day before she went to emergency room, and 2 days after arrival from [place] She woke up that morning with abdominal cramping vomiting and diarrhea which caused increased vertigo and weakness so she went to the emergency room She is feeling better now she is able to keep fluid and food down and there is no more diarrhea Continued to feel some weakness and vertigo however it has gotten better I have changed her levothyroxine back to 100 mcg Patient is requesting a referral to endocrinology which I have placed for her She will repeat thyroid test in 6 weeks [facility] Medical History Acute respiratory disease Well woman exam Foraminal stenosis of cervical region Radiculitis of left cervical region History of pericarditis Kidney stones Other specified hypothyroidism COVID-19 virus infection Cervical radiculopathy Chronic constipation Acute pericarditis Joint pain in fingers of right hand Myositis Hypothyroid SLE (systemic lupus erythematosus) Pericardial effusion Dysplasia of cervix, low grade (BERNADET[place] 1) 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 Mother No problems noted. 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 Gary Winters, Juany Larsen, John Paul Godoy and colleagues, with an educational matt from [employer]. Review of Systems Const Denies chills and Denies fever(s) ENT Denies epistaxis and Denies nasal discharge Card Denies chest pain Resp Denies chest congestion, Denies cough and Denies hemoptysis GI Denies diarrhea Skin/Breast Denies rash Neuro Reports no additional complaints Psych Reports no additional complaints Endo Reports no additional complaints Physical exam (Primary Care) Vital Signs: Last Vital Signs Temp 98.5 F 10/13/24 11:22 Pulse 78 10/13/24 11:22 Resp 18 10/13/24 11:22 BP 124/80 10/13/24 11:22 Pulse Ox 99 10/13/24 11:22 Oxygen Delivery Method Room Air 10/13/24 11:22 BMI result Body Mass Index 29.1 Tobacco/Smoking Status: Tobacco use Status Tobacco use date assessed 10/13/24 10/13/24 11:27 Patient Tobacco Use Status Former Tobacco user 10/13/24 11:27 Tobacco use type Cigarette 10/13/24 11:27 e-Cigarette/Vaping Use Currently Using 10/13/24 11:27 Thrive Assessment: Date of Thrive Assessment Date Thrive assessed 05/09/24 10/13/24 11:27 Const General: cooperative, comfortable and no acute distress Orientation/consciousness: patient oriented x3 HENMT Head: Yes normocephalic Eyes General: appearance normal, both eyes and all related structures Neck Neck: Yes supple Resp Effort & Inspection: normal respiratory effort, no cough and no stridor Cardio Rhythm: regular rhythm Heart sounds: S1 normal heart sound present and S2 normal heart sound present Skin General skin exam: turgor normal Neuro General: patient oriented x3, tone normal and moves all extremities Extrem Right lower extremity: no edema Left lower extremity: no edema Coding Level of Care Code Est Pt Level 4 (28359) Diagnoses Seen in emergency room Z76.89 Gastroenteritis K52.9 Hypothyroidism, unspecified type E03.9 Hypothyroidism type: unspecified Chronic vertigo R42 Cardiomyopathy, unspecified type I42.9 Cardiomyopathy type: unspecified Chronic pericarditis associated with systemic lupus erythematosus (SLE), unspecified complication status M32.12 Chronicity: chronic Chronic pericarditis complication: unspecified complication status Assessment & Plan Assessment & Plan (1) Seen in emergency room: Code(s): Z76.89 - Persons encountering health services in other specified circumstances Category: Medical (2) Gastroenteritis: Code(s): K52.9 - Noninfective gastroenteritis and colitis, unspecified Category: Medical (3) Hypothyroid: Code(s): E03.9 - Hypothyroidism, unspecified Category: Medical Qualifiers: Hypothyroidism type: unspecified Qualified Code(s): E03.9 - Hypothyroidism, unspecified (4) Chronic vertigo: Code(s): R42 - Dizziness and giddiness Category: Medical (5) Cardiomyopathy: Code(s): I42.9 - Cardiomyopathy, unspecified Category: Medical Qualifiers: Cardiomyopathy type: unspecified Qualified Code(s): I42.9 - Cardiomyopathy, unspecified (6) Pericarditis associated with systemic lupus erythematosus: Code(s): I31.9 - Disease of pericardium, unspecified; M32.12 - Pericarditis in systemic lupus erythematosus Category: Medical Qualifiers: Chronicity: chronic Chronic pericarditis complication: unspecified complication status Qualified Code(s): M32.12 - Pericarditis in systemic lupus erythematosus Plan Patient was in emergency room [facility] dated 10/11/2024 With a chief complaint of chest pain She has a history of fibromyalgia, previous history of vertigo, SLE, hypothyroidism, hypertension, cardiomyopathy, chronic pericarditis She was also having increasing vertigo Patient had a COVID positive 2 weeks before And returned from [place] on 08 of October after staying there for 4 days EKG revealed normal sinus rhythm right bundle branch block no ST elevation or depression T-wave abnormality Initial troponin was 32.2nd troponin 37.6 Labs without leukocytosis or leukopenia, H&H stable, TSH came back at 0.05, free T4 1.99 UA revealed 2+ protein, 1+ blood, negative leuk esterase nitrite and bacteria She was treated with 2 L of IV fluids and metoclopramide along with meclizine and Zofran CT scan of abdomen was done to evaluate the epigastric periumbilical pain she was experiencing in emergency room CT scan came back without any sign of obstructive pathology or acute abdomen She was recommended to see primary care to have her thyroid medication adjusted might be causing increasing diarrhea She was discharged with a diagnosis of vertigo without any new medications Her medication list includes colchicine 0.6 mg for chronic pericarditis Gabapentin 100 mg for body aches and pains in the morning And 300 at night with 300 as needed Meclizine Tylenol Losartan 50 mg b.i.d. Omeprazole 20 mg Hydroxychloroquine for lupus through Rheumatology Senokot for constipation patient has IBS Vitamin B6 Cetirizine Flonase nasal spray And Levothyroxine 125 mcg Her TSH level was above 4.0 in August that is when we adjusted her medication from 100 mcg to 125 mcg She tells me that her abdominal symptoms started a day before she went to emergency room, and 2 days after arrival from [place] She woke up that morning with abdominal cramping vomiting and diarrhea which caused increased vertigo and weakness so she went to the emergency room She is feeling better now she is able to keep fluid and food down and there is no more diarrhea Continued to feel some weakness and vertigo however it has gotten better I have changed her levothyroxine back to 100 mcg Patient is requesting a referral to endocrinology which I have placed for her She will repeat thyroid test in 6 weeks Orders: Orders TSH reflex Free T4 Today E03.9 - Hypothyroidism, unspecified Referrals Endocrinology Referral E03.9 - Hypothyroidism, unspecified Medications: Refilled levothyroxine 100 mcg PO DAILY 90 tabs 0RF 90 days Discontinued levothyroxine (Synthroid) Discontinued Reason: Doctor's Order 125 mcg PO DAILY 90 tabs 1RF
--- OUTSIDE RECORDS SUMMARY | 2024-10-13 12:25 | XMS_ITS | Clinical Summary ---
Author Organization [facility] Address [address] [place] [phone] Phone Care Team Providers Care Almond Grinder Name Role Phone Bryant Alejandra MD Primary Care Provider [phone] Allergies Active Allergy Reactions Criticality Noted Date [...] Nephrolithiasis 09/15/2020 Overview (01/19/2024): Followed by [facility] Assessment & Plan (01/19/2024 [...] Office Visit [facility] [address] [phone] Lilibeth Berrios ARNP Chronic kidney disease, stage 2 (mild) (Primary Dx); Proteinuria, not otherwise specified; Nephrolithiasis; Hypertension; Vitamin D deficiency, not otherwise specified 09/14/2024 Office Communication [facility] [address] [phone] Lilibeth Berrios ARNP from Last 3 Months [...] Orders Only [facility] [address] [phone] Lilibeth Berrios ARNP [address] [address] Chronic kidney disease, stage 2 (mild); Proteinuria, not otherwise specified; Hypertension 12/11/2024 2:45 PM EDT Office Visit [facility] [address] [place] [address] Adiel Young MD [address] [address] Health Maintenance Due Date Last [...] Creatinine, Ur 93.0 Not Estab. mg/dL [facility] Protein, Ur 187.5 Not Estab. mg/dL [facility] Urine Protein/Creati nine Ratio 2,016(H) 0 - 200 mg/g creat [facility] Urine Urine specimen obtained by clean catch procedure / Unknown 09/14/2024 1:12 PM EDT 09/14/2024 us Lilibeth LINARES LAB URINE ORDERABLES Final Result [facility] [address] [place] [phone] * (ABNORMAL) Urine Albumin / Creatinine Ratio (09/14/2024 1:12 PM EDT) Albumin, Urine 1,083.3 Not Estab. ug/mL [facility] [place] Comment: Results confirmed on dilution. Albumin/Creatin ine Ratio 1,165(H) 0 - 29 mg/g creat [facility] Comment: Normal: 0 - 29 Moderately increased: 30 - 300 Severely increased: >300 Urine Urine specimen obtained by clean catch procedure / Unknown 09/14/2024 1:12 PM EDT 09/14/2024 [email or web address] LAB URINE ORDERABLES Final Result Performing Organization Address City/[facility] Co de Phone Number [facility] [place] [address] [place] [phone] * Vitamin D 25 hydroxy (09/14/2024 1:12 PM EDT) Vitamin D, 25-OH, Total 34.1 30.0 - 100.0 ng/mL [facility] Comment: Vitamin D deficiency has been defined by the [place] of [employer] and an Endocrine Society practice guideline as a level of serum 25-OH vitamin D less than 20 ng/mL (1,2). The Endocrine Society went on to further define vitamin D insufficiency as a level between 21 and 29 ng/mL (2). 1. IOM ([place] of [employer]). 2010. Dietary reference intakes for calcium and D. [place]: The National Academies Press. 2. Leola MF, Alexandre NC, Coleman MILLAN, et al. Evaluation, treatment, and prevention of vitamin D deficiency: an Endocrine Society clinical practice guideline. JCEM. 2010; 96(7):1911-30. Blood Venous blood / Unknown 09/14/2024 1:12 PM EDT 09/14/2024 [email or web address] LAB BLOOD ORDERABLES Final Result [facility] [address] [place] [address] * CBC (09/14/2024 1:12 PM EDT) WBC 5.2 3.4 - 10.8 x10E3/uL [facility] RBC 4.58 3.77 - 5.28 x10E6/uL [facility] Hemoglobin 13.6 11.1 - 15.9 g/dL [facility] Hematocrit 42.6 34.0 - 46.6 % [facility] MCV 93 79 - 97 fL [facility] MCH 29.7 26.6 - 33.0 pg [facility] MCHC 31.9 31.5 - 35.7 g/dL [facility] RDW 13.1 11.7 - 15.4 % [facility] Platelets 217 150 - 450 x10E3/uL [facility] Blood Venous blood / Unknown 09/14/2024 1:12 PM EDT 09/14/2024 Lilibeth Berrios [facility] LAB BLOOD ORDERABLES Final Result [facility] [address] [place] [address] * PTH, intact (09/14/2024 1:12 PM EDT) PTH 36 15 - 65 pg/mL [facility] Blood Venous blood / Unknown 09/14/2024 1:12 PM EDT 09/14/2024 Lilibeth Berrios [facility] LAB BLOOD ORDERABLES Final Result [facility] [place] [address] [place] [address] * (ABNORMAL) Renal function panel (09/14/2024 1:12 PM EDT) Glucose 81 70 - 99 mg/dL [facility] BUN 18 6 - 24 mg/dL [facility] Creatinine 0.82 0.57 - 1.00 mg/dL [facility] eGFR CKD-EPI CR 2020 87 >59 mL/min/1.7 3 [facility] BUN/Creatinine Ratio 22 9 - 23 [facility] Sodium 140 134 - 144 mmol/L [facility] Potassium 3.9 3.5 - 5.2 mmol/L [facility] Chloride 107(H) 96 - 106 mmol/L [facility] Bicarbonate (CO2) 21 20 - 29 mmol/L [facility] Calcium 9.2 8.7 - 10.2 mg/dL [facility] Albumin 4.0 3.9 - 4.9 g/dL [facility] Phosphorus 3.6 3.0 - 4.3 mg/dL [facility] Blood Venous blood / Unknown 09/14/2024 1:12 PM EDT 09/14/2024 Lilibeth [facility] LAB BLOOD ORDERABLES Final Result [facility] [address] [place] [address] * (ABNORMAL) EXT RESULT ENTRY (08/21/2024) Sodium [...] from Last 3 Months Insurance Care Teams Almond Grinder Relationship Specialty Start Date End Date Bryant Alejandra MD [address] [facility] [place] [address] PCP - General Internal Medicine 01/19/24
--- OUTSIDE RECORDS SUMMARY | 2024-10-13 12:25 | XMS_ITS | Encounter Summary ---
Author Organization [facility] Address [address] [facility] [address] [place] [address] Phone Care Team Providers Care Director Of Consumer Marketing Name Role Phone Bryant Alejandra MD Primary Care Provider [phone] Reason for Visit * Reason Comments Med Refill Encounter Details Date Type Department Care Team (Late Contact Info) Description 01/14/2021 Refill [facility] [address] [facility] [address] [place] [address] Irwin Barrientos MD Social History [...] Orders Only [facility] [address] [address] Lilibeth Berrios ARNP [address] [address] Chronic kidney disease, stage 2 (mild); Proteinuria, not otherwise specified; Hypertension 12/11/2024 2:45 PM EDT Office Visit [facility] [address] [place] [phone] Adiel Young MD [address] [address] documented as of this encounter Visit Diagnoses Not on filedocumented in this encounter Care Teams Director Of Consumer Marketing Relationship Specialty Start Date End Date Bryant Alejandra MD [address] [place] [address] PCP - General Internal Medicine 01/19/24 documented as of this encounter
== END 2024-10-13 11:49 | disposition home or self-care (01) ==
LOC: HO.HMCC 11:21
PROVIDERS: PCP Internal Medicine; Visit Provider Internal Medicine
DX: I42.9 Cardiomyopathy, unspecified (principal); M32.12 Pericarditis in systemic lupus erythematosus; K52.9 Noninfective gastroenteritis and colitis, unspecified; E03.9 Hypothyroidism, unspecified; R42 Dizziness and giddiness; Z76.89 Persons encountering health services in other specified circumstances

== ENCOUNTER 2024-10-17 08:57 | Outpatient (REF) | payer BC, SELFPAY ==
--- NOTE | ~2024-10-17 | MM_ITS ---
EXAMINATION: MM SCREENING DIGITAL BREAST TOMOSYNTHESIS, BILATERAL CLINICAL INFORMATION: Screening. Asymptomatic. COMPARISON: Mammography: Comparison is made with available priors TECHNIQUE: Digital breast mammography with tomosynthesis is performed in both the craniocaudal and mediolateral oblique views along with computer-aided detection (CAD). FINDINGS: The breasts are heterogeneously dense, which may obscure small masses (ACR BI-RADS breast composition Category c). There are no significant masses, abnormal calcifications, or other abnormalities. MM/MM tomosynthesis screening BI IMPRESSION: No mammographic evidence of malignancy. ASSESSMENT: BI-RADS BI-RADS 1 - Negative RECOMMENDATION: Routine annual mammography screening. 1 year F/U This examination should not preclude the clinical evaluation of a suspicious palpable abnormality. This patient's information was entered into a reminder system with a target due date for their next mammogram. Electronically signed by: Dot Garcia DO 10/17/2024 12:04 PM EDT
--- OUTSIDE RECORDS SUMMARY | 2024-10-17 09:44 | XMS_ITS | Encounter Summary ---
Author Organization [facility] Address [address] [facility] [address] [place] [address] Phone Care Team Providers Care Roof Panel Hanger Name Role Phone Bryant Alejandra MD Primary Care Provider [phone] Reason for Visit * Reason Comments Med Refill Encounter Details Date Type Department Care Team (Late Contact Info) Description 01/14/2021 Refill [facility] [address] [facility] [address] [place] [address] Irwin Barrientos MD Social History [...] Care Team (Late st Contact Info) Description 12/11/2024 2:45 PM EDT Office Visit [facility] [address] [place] [address] [place] [phone] Adiel Young MD [address] [facility] [address] [place] [phone] documented as of this encounter Visit Diagnoses Not on filedocumented in this encounter Care Teams Roof Panel Hanger Relationship Specialty Start Date End Date Bryant Alejandra MD [address] [place] [address] PCP - General Internal Medicine 01/19/24 documented as of this encounter
--- OUTSIDE RECORDS SUMMARY | 2024-10-17 09:44 | XMS_ITS | Clinical Summary ---
Author Organization [facility] Address [address] [place] [phone] Phone Care Team Providers Care Package Pick Up Name Role Phone Bryant Alejandra MD Primary Care Provider [phone] Allergies Active Allergy Reactions Criticality Noted Date Comments Aspirin Other (see comments) 09/10/2020 Medications Cetirizine HCl (ZyrTEC ALLERGY) 10 MG capsule Take 1 capsule by mouth Active colchicine 0.6 MG tabletIndications :Acute Pericarditis Take 1 tablet by mouth 1 (one) time each day Active hydroxychloroquin e (PLAQUENIL) 200 MG tablet Take 1 tablet [...] if needed Active losartan (COZAAR) 100 MG tabletIndications :Chronic kidney disease, stage 2 (mild),Proteinuri a, not otherwise specified,Hyperte nsion Take 1 tablet (100 mg total) by mouth 1 (one) time each day 30 tablet 5 5 03/13/19 26 Active Active Problems Problem Noted Date Diagnosed [...] Nephrolithiasis 09/15/2020 Overview (01/19/2024): Followed by [facility] Assessment & Plan (01/19/2024 [...] Encounters Date Type Department Care Team Description 10/16/2024 Orders Only [facility] [address] [phone] Lilibeth Berrios ARNP Chronic kidney disease, stage 2 (mild); Proteinuria, not otherwise specified; Hypertension 09/14/2024 9:00 AM EDT Office Visit [facility] [address] [phone] Lilibeth Berrios ARNP Chronic kidney disease, stage 2 (mild) (Primary Dx); Proteinuria, not otherwise specified; Nephrolithiasis; Hypertension; Vitamin D deficiency, not otherwise specified 09/14/2024 Office Communication [facility] [address] [phone] Lilibeth Berrios ARNP from Last 3 Months [...] Visit [facility] [address] [place] [address] Adiel Young MD [address] [facility] [address] [place] [phone] Health Maintenance Due Date Last Done Comments [...] Creatinine, Ur 93.0 Not Estab. mg/dL [facility] Protein, Ur 187.5 Not Estab. mg/dL [facility] Urine Protein/Creati nine Ratio 2,016(H) 0 - 200 mg/g creat [facility] Urine Urine specimen obtained by clean catch procedure / Unknown 09/14/2024 1:12 PM EDT 09/14/2024 Lilibeth Yash [facility] LAB URINE ORDERABLES Final Result [facility] [address] [place] [phone] * (ABNORMAL) Urine Albumin / Creatinine Ratio (09/14/2024 1:12 PM EDT) Albumin, Urine 1,083.3 Not Estab. ug/mL [facility] Comment: Results confirmed on dilution. Albumin/Creatin ine Ratio 1,165(H) 0 - 29 mg/g creat [facility] Comment: Normal: 0 - 29 Moderately increased: 30 - 300 Severely increased: >300 Urine Urine specimen obtained by clean catch procedure / Unknown 09/14/2024 1:12 PM EDT 09/14/2024 Lilibeth Berrios [facility] LAB URINE ORDERABLES Final Result Performing Organization Address City/[facility] Co de Phone Number [facility] [address] [place] [address] * Vitamin D 25 hydroxy (09/14/2024 1:12 PM EDT) Vitamin D, 25-OH, Total 34.1 30.0 - 100.0 ng/mL [facility] Comment: Vitamin D deficiency has been defined by the [place] of Medicine and an Endocrine Society practice guideline as a level of serum 25-OH vitamin D less than 20 ng/mL (1,2). The Endocrine Society went on to further define vitamin D insufficiency as a level between 21 and 29 ng/mL (2). 1. IOM ([place] of Medicine). 2010. Dietary reference intakes for calcium and D. [place]: The National Academies Press. 2. Leola MF, Alexandre CERON, Coleman MILLAN, et al. Evaluation, treatment, and prevention of vitamin D deficiency: an Endocrine Society clinical practice guideline. JCEM. 2010; 96(7):1911-30. Blood Venous blood / Unknown 09/14/2024 1:12 PM EDT 09/14/2024 Lilibeth Berrios [facility] LAB BLOOD ORDERABLES Final Result Performing Organization Address City/[facility]/ZIP Co de Phone Number [facility] [address] [place] [address] * CBC (09/14/2024 1:12 PM EDT) WBC 5.2 3.4 - 10.8 x10E3/uL [facility] RBC 4.58 3.77 - 5.28 x10E6/uL [facility] Hemoglobin 13.6 11.1 - 15.9 g/dL [facility] Hematocrit 42.6 34.0 - 46.6 % [facility] MCV 93 79 - 97 fL [facility] MCH 29.7 26.6 - 33.0 pg [facility] MCHC 31.9 31.5 - 35.7 g/dL [facility] RDW 13.1 11.7 - 15.4 % [facility] Platelets 217 150 - 450 x10E3/uL [facility] Blood Venous blood / Unknown 09/14/2024 1:12 PM EDT 09/14/2024 [facility] BLOOD ORDERABLES Final Result Performing Organization Address City/[facility]/ZIP Co de Phone Number [facility] [address] [place] [address] * PTH, intact (09/14/2024 1:12 PM EDT) Pathologist [facility] PTH 36 15 - 65 pg/mL [facility] Blood Venous blood / Unknown 09/14/2024 1:12 PM EDT 09/14/2024 [facility] LAB BLOOD ORDERABLES Final Result [facility] [address] [place] [address] * (ABNORMAL) Renal function panel (09/14/2024 1:12 PM EDT) Glucose 81 70 - 99 mg/dL [facility] BUN 18 6 - 24 mg/dL [facility] Creatinine 0.82 0.57 - 1.00 mg/dL [facility] eGFR CKD-EPI CR 2020 87 >59 mL/min/1.7 3 [facility] BUN/Creatinine Ratio 22 9 - 23 [facility] Sodium 140 134 - 144 mmol/L [facility] Potassium 3.9 3.5 - 5.2 mmol/L [facility] Chloride 107(H) 96 - 106 mmol/L [facility] Bicarbonate (CO2) 21 20 - 29 mmol/L [facility] Calcium 9.2 8.7 - 10.2 mg/dL [facility] Albumin 4.0 3.9 - 4.9 g/dL [facility] Phosphorus 3.6 3.0 - 4.3 mg/dL [facility] Blood Venous blood / Unknown 09/14/2024 1:12 PM EDT 09/14/2024 Lilibeth LINARES LAB BLOOD ORDERABLES Final Result [facility] [place] [address] [place] [address] * (ABNORMAL) EXT RESULT ENTRY (08/21/2024) Sodium 141 137 - 147 Potassium 3.6 3.4 - 5.5 Chloride 111.0(A) 99.0 - 108.0 Carbon Dioxide 25 mmol/L Anion Gap 9 <=30 MMOL/L Glucose 76 60 - 200 BUN 17 4 - 21 mg/dL Creatinine 1.04 0.50 - 1.10 mg/dL Albumin 3.8 3.5 - 5.0 g/dL Calcium 8.9 8.7 - 10.7 mg/dL eGFR 56 08/21/2024 Historical Provider LAB BLOOD ORDERABLES Tamia l Result from Last [address] [place] [address] [place] [address] [place] [address] Care Teams Package Pick Up Relationship Specialty Start Date End Date Bryant Alejandra MD [address] [place], [place] PCP - General Internal Medicine 01/19/24
--- OUTSIDE RECORDS SUMMARY | 2024-10-17 09:44 | XMS_ITS | Encounter Summary ---
Author Organization [facility] Address [address] [phone] Phone Care Team Providers Care Dispensary Clerk Name Role Phone Bryant Alejandra MD Primary Care Provider [phone] Encounter Details Date Type Department Care Team ([facility] Contact Info) Description 10/16/2024 Orders Only [facility] [address] [phone] Lilibeth Berrios ARNP [address] [phone] Chronic kidney disease, stage 2 (mild); Proteinuria, not otherwise specified; Hypertension Social History Tobacco Use Types Packs/Day Years [...] Office Visit [facility] [address] [place] [address] Adiel Young MD [address] [phone] documented as of this encounter Visit Diagnoses Diagnosis Chronic kidney disease, stage 2 (mild) Proteinuria, not otherwise specified Hypertension documented in this encounter Care Teams Dispensary Clerk Relationship Specialty Start Date End Date Bryant Alejandra MD [address] [place] [address] PCP - General Internal Medicine 01/19/24 documented as of this encounter
== END 2024-10-17 08:58 | disposition home or self-care (01) ==
LOC: HO.MAMMO 08:57
PROVIDERS: PCP Internal Medicine; Visit Provider Internal Medicine
DX: Z12.31 Encounter for screening mammogram for malignant neoplasm of breast (principal)
CPT/HCPCS: 77063; 77067

== ENCOUNTER → 2024-10-17 09:00 | Outpatient (BNV) | payer BC, SELFPAY | PROVIDERS: PCP Internal Medicine; Visit Provider Internal Medicine | DX: Z12.31 Encounter for screening mammogram for malignant neoplasm of breast (principal) | CPT/HCPCS: 77063; 77067 ==

== ENCOUNTER 2024-10-24 13:41 | Outpatient (AMB) | payer BC, SELFPAY ==
[2024-10-24 13:44] VITALS: BP 130/92; PULSE 82; O2SAT 100; BMI 29.2
--- NOTE | 2024-10-24 13:44 | MHC.OFFVIS ---
Vital Signs 10/24/24 13:44 Height 5 ft Weight 149 lb 7.574 oz BMI 29.2 BP 130/92 H Blood Pressure Location Lt brachial Position Sitting Pulse 82 Pulse Source Pulse Oximeter Pulse Oximetry (%) 100 Oxygen Delivery Method Room Air Intake Visit Reasons: Hypothyroidism, unspecified Intake Note: Patient present today for Hypothyroidism, unspecified office visit. 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: No Accompanied by: Self / Same As Patient Allergies aspirin Allergy (Unknown, Verified 10/24/24 13:47) vomiting, GI upset Medication List - Last Reconciled 10/24/24 by Bren Mari MD acetaminophen (Tylenol) 650 mg (2 x 325 mg) PO Q6H PRN cetirizine 10 mg PO DAILY colchicine 0.6 mg PO DAILY 90 days diclofenac sodium 1% 2 grams topical QID fluticasone propionate 50 mcg/actuation 2 sprays intranasal BID gabapentin 100 mg PO DAILY gabapentin 300 mg PO BID 30 days hydroxychloroquine 300 mg (1.5 x 200 mg) PO DAILY 90 days leg brace (Knee Support Brace) As directed levothyroxine 100 mcg PO DAILY 90 days losartan 100 mg PO DAILY meclizine 25 mg PO DAILY PRN 90 days omeprazole 40 mg (2 x 20 mg) PO DAILY 30 days pyridoxine (vitamin B6) 100 mg PO DAILY 90 days sennosides-docusate sodium 8.6-50 mg (Senokot-S) 2 tab-caps (2 x 8.6-50 mg) PO BEDTIME 90 days HPI Comments Details: 48-year-old female here today for initial evaluation of hypothyroidism. Diagnosed in May 2023 with hypothyroidism TSH 12.41, low free t4 0.69, August 2024 showed elevated TSH at 4.72, levothyroxine dose was increased from 100 to 125 mcg daily Labs 10/11/2024: TSH 0.05 low, elevated free T4 of 1.99, normal free T3 of 3.5, 10/13/2024: Primary care physician lower levothyroxine from 125 mcg daily to 100 mcg daily Reports tiredness, constipation Weight stable in 140s Some intermittent difficulty swallowing Patient denies any history of childhood neck radiation. Denies having ever used lithium, amiodarone. Does take biotin. Patient denies any family history of thyroid cancer. Brother has thyroid disease. Physical exam General: sitting comfortably in no acute distress HEENT: normocephalic/atraumatic Neck: supple, prominent thyroid, possibly right-sided nodule Cardiac: normal heart sounds Pulm: normal breath sounds B/L, no added breath sounds Abd: not distended, no tenderness Extremities: no edema, no signs of myxedema Laboratory Tests 04/08/22 05/17/23 08/21/24 09:05 05:57 09:01 TSH 12.41 H 5.23 H Free T4 0.69 L 0.95 Free T3 Thyroglobulin Antibody 3 H Thyroid Peroxidase Ab >900 H 08/22/24 10/11/24 10/11/24 14:53 08:27 13:55 TSH 4.72 H 0.05 L Free T4 0.92 1.21 1.99 H Free T3 3.5 Thyroglobulin Antibody Thyroid Peroxidase Ab PFSH Medical History Acute respiratory disease Well woman exam Foraminal stenosis of cervical region Radiculitis of left cervical region History of pericarditis Kidney stones Other specified hypothyroidism COVID-19 virus infection Cervical radiculopathy Chronic constipation Acute pericarditis Joint pain in fingers of right hand Myositis Hypothyroid SLE (systemic lupus erythematosus) Pericardial effusion Dysplasia of cervix, low grade ([place] 1) 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 Mother No problems noted. 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 Cognitive needs: No Hearing needs: No Vision needs: Yes Female Reproductive History Menstrual Age of Menarche: 10 Physical Exam Vital Signs: Last Vital Signs Pulse 82 10/24/24 13:44 BP 130/92 H 10/24/24 13:44 Pulse Ox 100 10/24/24 13:44 Oxygen Delivery Method Room Air 10/24/24 13:44 BMI result Body Mass Index 29.2 Assessment & Plan Assessment & Plan (1) Hypothyroid: Code(s): E03.9 - Hypothyroidism, unspecified Category: Medical Qualifiers: Hypothyroidism type: unspecified Qualified Code(s): E03.9 - Hypothyroidism, unspecified Plan: 48-year-old female coming in today for initial evaluation of hypothyroidism. Diagnosed in May 2023 with hypothyroidism TSH 12.41, low free t4 0.69, August 2024 showed elevated TSH at 4.72, levothyroxine dose was increased from 100 to 125 mcg daily Labs 10/11/2024: TSH 0.05 low, elevated free T4 of 1.99, normal free T3 of 3.5, 10/13/2024: Primary care physician lower levothyroxine from 125 mcg daily to 100 mcg daily At this point we will plan to repeat labs in 6 weeks since last dose change which would be around 11/24/2024. 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 Plan: -ordered ultrasound of the thyroid, depending on results could need a sooner follow up Plan See above Orders: Orders Free T4 (Free Thyroxine) 11/24/24 E03.9 - Hypothyroidism, unspecified Thyroid Stimulating Hormone 11/24/24 E03.9 - Hypothyroidism, unspecified US thyroid Today E01.0 - Iodine-deficiency related diffuse (endemic) goiter Patient Instructions: Continue levothyroxine 100 mcg daily Do blood work 11/24, we will reach out with results and instructions Do ultrasound of the thyroid, someone will call you to schedule this Coding Level of Care Code New Pt Level 4 (50147) Diagnoses Hypothyroidism, unspecified type E03.9 Hypothyroidism type: unspecified Thyromegaly E01.0
--- OUTSIDE RECORDS SUMMARY | 2024-10-24 16:13 | XMS_ITS | Clinical Summary ---
Author Organization [facility] Address [address] [place] [phone] Phone Care Team Providers Care Creamery Worker Name Role Phone Bryant Alejandra MD Primary Care Provider [phone] Allergies Active Allergy Reactions Criticality Noted Date [...] Nephrolithiasis 09/15/2020 Overview (01/19/2024): Followed by [facility] Assessment & Plan (01/19/2024 [...] Orders Only [facility] [address] [phone] Lilibeth Berrios ARNP Chronic kidney disease, stage 2 (mild); Proteinuria, not otherwise specified; Hypertension 09/14/2024 9:00 AM EDT Office Visit [facility] [address] [phone] Lilibeth Berrios ARNP Chronic kidney disease, stage 2 (mild) (Primary Dx); Proteinuria, not otherwise specified; Nephrolithiasis; Hypertension; Vitamin D deficiency, not otherwise specified 09/14/2024 Office Communication [facility] [address] [phone] Lilibeth Berrios ARNP from Last 3 Months [...] Visit [facility] the [address] [place] [address] Adiel Young MD [address] [facility] [address] [place] [phone] Health Maintenance Due Date Last Done Comments [...] Creatinine, Ur 93.0 Not Estab. mg/dL [facility] Protein, Ur 187.5 Not Estab. mg/dL [facility] Urine Protein/Creati nine Ratio 2,016(H) 0 - 200 mg/g creat [facility] Urine Urine specimen obtained by clean catch procedure / Unknown 09/14/2024 1:12 PM EDT 09/14/2024 Lilibeth Yash [facility] LAB URINE ORDERABLES Final Result [facility] [address] [place] [phone] * (ABNORMAL) Urine Albumin / Creatinine Ratio (09/14/2024 1:12 PM EDT) Albumin, Urine 1,083.3 Not Estab. ug/mL [facility] Comment: Results confirmed on dilution. Albumin/Creatin ine Ratio 1,165(H) 0 - 29 mg/g creat [facility] Comment: Normal: 0 - 29 Moderately increased: 30 - 300 Severely increased: >300 Urine Urine specimen obtained by clean catch procedure / Unknown 09/14/2024 1:12 PM EDT 09/14/2024 Lilibeth Berrios [facility] LAB URINE ORDERABLES Final Result Performing Organization Address City/[facility] Co de Phone Number [facility] [address] [place] [address] * Vitamin D 25 hydroxy (09/14/2024 1:12 PM EDT) Vitamin D, 25-OH, Total 34.1 30.0 - 100.0 ng/mL [facility] Comment: Vitamin D deficiency has been defined by the [place] of Medicine and an Endocrine Society practice guideline as a level of serum 25-OH vitamin D less than 20 ng/mL (1,2). The Endocrine Society went on to further define vitamin D insufficiency as a level between 21 and 29 ng/mL (2). 1. IOM ([place] of Medicine). 2010. Dietary reference intakes for calcium and D. [place]: The National Academies Press. 2. Leola MF, Alexandre CERON, Coleman MILLAN, et al. Evaluation, treatment, and prevention of vitamin D deficiency: an Endocrine Society clinical practice guideline. JCEM. 2010; 96(7):1911-30. Blood Venous blood / Unknown 09/14/2024 1:12 PM EDT 09/14/2024 Lilibeth Berrios [facility] LAB BLOOD ORDERABLES Final Result Performing Organization Address City/[facility]/ZIP Co de Phone Number [facility] [address] [place] [address] * CBC (09/14/2024 1:12 PM EDT) WBC 5.2 3.4 - 10.8 x10E3/uL [facility] RBC 4.58 3.77 - 5.28 x10E6/uL [facility] Hemoglobin 13.6 11.1 - 15.9 g/dL [facility] Hematocrit 42.6 34.0 - 46.6 % [facility] MCV 93 79 - 97 fL [facility] MCH 29.7 26.6 - 33.0 pg [facility] MCHC 31.9 31.5 - 35.7 g/dL [facility] RDW 13.1 11.7 - 15.4 % [facility] Platelets 217 150 - 450 x10E3/uL [facility] Blood Venous blood / Unknown 09/14/2024 1:12 PM EDT 09/14/2024 [facility] BLOOD ORDERABLES Final Result Performing Organization Address City/[facility]/ZIP Co de Phone Number [facility] [address] [place] [address] * PTH, intact (09/14/2024 1:12 PM EDT) Pathologist [facility] PTH 36 15 - 65 pg/mL [facility] Blood Venous blood / Unknown 09/14/2024 1:12 PM EDT 09/14/2024 [facility] LAB BLOOD ORDERABLES Final Result [facility] [address] [place] [address] * (ABNORMAL) Renal function panel (09/14/2024 1:12 PM EDT) Glucose 81 70 - 99 mg/dL [facility] BUN 18 6 - 24 mg/dL [facility] Creatinine 0.82 0.57 - 1.00 mg/dL [facility] eGFR CKD-EPI CR 2020 87 >59 mL/min/1.7 3 [facility] BUN/Creatinine Ratio 22 9 - 23 [facility] Sodium 140 134 - 144 mmol/L [facility] Potassium 3.9 3.5 - 5.2 mmol/L [facility] Chloride 107(H) 96 - 106 mmol/L [facility] Bicarbonate (CO2) 21 20 - 29 mmol/L [facility] Calcium 9.2 8.7 - 10.2 mg/dL [facility] Albumin 4.0 3.9 - 4.9 g/dL [facility] Phosphorus 3.6 3.0 - 4.3 mg/dL [facility] Blood Venous blood / Unknown 09/14/2024 1:12 PM EDT 09/14/2024 Lilibeth LINARES LAB BLOOD ORDERABLES Final Result [facility] [place] [address] [place] [address] * (ABNORMAL) EXT RESULT ENTRY (08/21/2024) Sodium [...] l Result from Last [address] [address] [place] [address] Care Teams Creamery Worker Relationship Specialty Start Date End Date Bryant Alejandra MD [address] [place], [place] PCP - General Internal Medicine 01/19/24
--- OUTSIDE RECORDS SUMMARY | 2024-10-24 16:13 | XMS_ITS | Encounter Summary ---
Author Organization [facility] Address [address] [facility] [address] [place] [address] Phone Care Team Providers Care Cigar Head Perforator Name Role Phone Bryant Alejandra MD Primary Care Provider Reason for Visit * Reason Comments Med Refill Encounter Details Date Type Department Care Team (Late Contact Info) Description 01/14/2021 Refill [facility] [address] [facility] [address] [place] [address] Irwin Barrientos MD Social History [...] [facility] [address] [place] [phone] Adiel Young MD [address] [facility] [address] [place] [phone] documented as of this encounter Visit Diagnoses Not on filedocumented in this encounter Care Teams Cigar Head Perforator Relationship Specialty Start Date End Date Bryant Alejandra MD [address] [place] [address] PCP - General Internal Medicine 01/19/24 documented as of this encounter
--- OUTSIDE RECORDS SUMMARY | 2024-10-24 16:13 | XMS_ITS | Encounter Summary ---
Author Organization [facility] Address [address] [phone] Phone Care Team Providers Care Tile Machine Operator Name Role Phone Bryant Alejandra MD Primary Care Provider [phone] Encounter Details Date Type Department Care Team ([facility] Contact Info) Description 10/16/2024 Orders Only [facility] [address] [phone] Lilibeth Berrios ARNP [address] [phone] Chronic kidney disease, stage 2 [...] Office Visit [facility] [address] [place] [address] Adiel Young MD [address] [phone] documented as of this encounter Visit Diagnoses Diagnosis Chronic kidney disease, stage 2 (mild) Proteinuria, not otherwise specified Hypertension documented in this encounter Care Teams Tile Machine Operator Relationship Specialty Start Date End Date Bryant Alejandra MD [address] [place] [address] PCP - General Internal Medicine 01/19/24 documented as of this encounter
== END 2024-10-24 14:11 | disposition home or self-care (01) ==
LOC: HO.ENCR 13:42
PROVIDERS: PCP Internal Medicine; Visit Provider Student in an Organized Health Care Education/Training Program
DX: E03.9 Hypothyroidism, unspecified (principal)
CPT/HCPCS: 99204

== ENCOUNTER 2024-11-10 09:47 | Outpatient (AMB) | payer BC, SELFPAY ==
[2024-11-10 09:50] VITALS: BP 116/82; PULSE 94; TEMP 36.8; O2SAT 100; BMI 29.1
--- NOTE | 2024-11-10 09:50 | MHC.OFFWIV ---
Intake Vital Signs 11/10/24 09:50 Height 5 ft Weight 149 lb BMI 29.1 BP 116/82 Blood Pressure Location Rt brachial Position Sitting Pulse 94 Pulse Source Pulse Oximeter Temp 98.2 F Temp Source Oral Pulse Oximetry (%) 100 Intake Visit Reasons: ep possible uti Intake Note: pt presents with left flank pain, lower abdominal burning sensation, sensation to void with little ouput Patient Tobacco Use Status: Former Tobacco user Allergies aspirin Allergy (Unknown, Verified 11/10/24 09:57) vomiting, GI upset Do you need a note to return to daycare/school/sports/work: No HPI ep possible uti HPI Details 48-year-old female patient presents to the walk-in clinic today with report of urinary frequency, urgency, slight burning, pressure, and left flank pain. Followed by urology at [facility] – [place] - has known nonobstructing left renal stone. Repeat KUB in November. Has been having UTI symptoms over the last week. Denies fever/chills. History of SLE and lupus nephritis. Followed by rheumatology and nephrology. 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 Mother No problems noted. 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 Cognitive needs: No Hearing needs: No Vision needs: Yes Female Reproductive History Menstrual Age of Menarche: 10 Review of Systems Const All systems reviewed & are unremarkable except as noted in HPI and below Physical Exam Vital Signs: BMI result Body Mass Index 29.1 Const General: cooperative, healthy appearing, comfortable and no acute distress Limitations: no limitations Resp Effort & Inspection: normal respiratory effort Auscultation: clear to auscultation bilaterally Cardio Rate: regular rate Rhythm: regular rhythm General: Yes bladder normal to palpation and Yes CVA tenderness (mild left) Bimanual exam- vagina & uterus: bladder normal to palpation Back/Spine/Pelvis Back: CVA tenderness (mild left) Skin General skin exam: no rashes or lesions noted Extrem General: Yes capillary refill normal and Yes no clubbing, cyanosis or edema Psych Appearance: grossly normal Mental Status: mental status grossly normal Speech and movement: Normal speech and movement present Assessment & Plan Assessment & Plan (1) Dysuria: Code(s): R30.0 - Dysuria Plan: Will start on Cefuroxime BID 5 days. Reviewed indications, use, possible s/e. Patient will not take Omeprozole while on abx. Advised increased hydration, and Tylenol/Motrin as needed. If flank pain worsens she may need repeat KUB/uro follow up sooner than scheduled in November. If she develops any severe pain, fevers/chills, she should go to the ED as it is possible she may need to be evaluated for nephrolithiasis. All questions were answered and patient verbalizes understanding and agrees to plan. Medications: New cefuroxime axetil Take one tablet by mouth every 12 hours for 5 days. 500 mg PO BID 10 tabs 0RF 5 days R30.0 - Dysuria Coding Level of Care Code Est Pt Level 4 (46354) Diagnoses Dysuria R30.0
--- OUTSIDE RECORDS SUMMARY | 2024-11-10 10:51 | XMS_ITS | Clinical Summary ---
Author Organization [facility] Address [address] [place] [phone] Phone Care Team Providers Care Podiatric Assistant Name Role Phone Bryant Alejandra MD Primary Care Provider [phone] Allergies Active Allergy Reactions Criticality Noted Date [...] Orders Only [facility] [address] [phone] Lilibeth Berrios ARNP Chronic kidney disease, stage 2 (mild); Proteinuria, not otherwise specified; Hypertension 09/14/2024 9:00 AM EDT Office Visit [facility] [address] [phone] Lilibeth Berrios ARNP Chronic kidney disease, stage 2 (mild) (Primary Dx); Proteinuria, not otherwise specified; Nephrolithiasis; Hypertension; Vitamin D deficiency, not otherwise specified 09/14/2024 Office Communication [facility] [address] [phone] Lilibeth Berrios ARNP from Last 3 Months [...] Visit [facility] [address] [place] [phone] Adiel Young MD [address] [facility] [address] [place] [phone] Health Maintenance Due Date Last Done Comments [...] Creatinine, Ur 93.0 Not Estab. mg/dL [facility] Protein, Ur 187.5 Not Estab. mg/dL [facility] Urine Protein/Creati nine Ratio 2,016(H) 0 - 200 mg/g creat [facility] Urine Urine specimen obtained by clean catch procedure / Unknown 09/14/2024 1:12 PM EDT 09/14/2024 Lilibeth Yash [facility] URINE ORDERABLES Final Result [facility] [address] [place] [phone] * (ABNORMAL) Urine Albumin / Creatinine Ratio (09/14/2024 1:12 PM EDT) Albumin, Urine 1,083.3 Not Estab. ug/mL [facility] Comment: Results confirmed on dilution. Albumin/Creatin ine Ratio 1,165(H) 0 - 29 mg/g creat [facility] Comment: Normal: 0 - 29 Moderately increased: 30 - 300 Severely increased: >300 Urine Urine specimen obtained by clean catch procedure / Unknown 09/14/2024 1:12 PM EDT 09/14/2024 Lilibeth Berrios [facility] LAB URINE ORDERABLES Final Result Performing Organization Address City/[facility] Co de Phone Number [facility] [address] [place] [address] * Vitamin D 25 hydroxy (09/14/2024 1:12 PM EDT) Vitamin D, 25-OH, Total 34.1 30.0 - 100.0 ng/mL [facility] Comment: Vitamin D deficiency has been defined by the [employer] of [employer] and an Endocrine Society practice guideline as a level of serum 25-OH vitamin D less than 20 ng/mL (1,2). The Endocrine Society went on to further define vitamin D insufficiency as a level between 21 and 29 ng/mL (2). 1. IOM ([employer] of [employer]). 2010. Dietary reference intakes for calcium and D. [place]: The National Academies Press. 2. Leola MF, Alexandre CERON, Coleman MILLAN, et al. Evaluation, treatment, and prevention of vitamin D deficiency: an Endocrine Society clinical practice guideline. JCEM. 2010; 96(7):1911-30. Blood Venous blood / Unknown 09/14/2024 1:12 PM EDT 09/14/2024 Lilibeth Berrios [facility] LAB BLOOD ORDERABLES Final Result Performing Organization Address City/[facility]/ZIP Co de Phone Number [facility] [address] [place] [address] * CBC (09/14/2024 1:12 PM EDT) WBC 5.2 3.4 - 10.8 x10E3/uL [facility] RBC 4.58 3.77 - 5.28 x10E6/uL [facility] Hemoglobin 13.6 11.1 - 15.9 g/dL [facility] Hematocrit 42.6 34.0 - 46.6 % [facility] MCV 93 79 - 97 fL [facility] MCH 29.7 26.6 - 33.0 pg [facility] MCHC 31.9 31.5 - 35.7 g/dL [facility] RDW 13.1 11.7 - 15.4 % [facility] Platelets 217 150 - 450 x10E3/uL [facility] Blood Venous blood / Unknown 09/14/2024 1:12 PM EDT 09/14/2024 [facility] Final Result Performing Organization Address City/[facility]/ZIP Co de Phone Number [facility] [address] [place] [address] * PTH, intact (09/14/2024 1:12 PM EDT) Pathologist [facility] PTH 36 15 - 65 pg/mL [facility] Blood Venous blood / Unknown 09/14/2024 1:12 PM EDT 09/14/2024 [facility] LAB BLOOD ORDERABLES Final Result [facility] [address] [place] [address] * (ABNORMAL) Renal function panel (09/14/2024 1:12 PM EDT) Glucose 81 70 - 99 mg/dL [facility] BUN 18 6 - 24 mg/dL [facility] Creatinine 0.82 0.57 - 1.00 mg/dL [facility] eGFR CKD-EPI CR 2020 87 >59 mL/min/1.7 3 [facility] BUN/Creatinine Ratio 22 9 - 23 [facility] Sodium 140 134 - 144 mmol/L [facility] Potassium 3.9 3.5 - 5.2 mmol/L [facility] Chloride 107(H) 96 - 106 mmol/L [facility] Bicarbonate (CO2) 21 20 - 29 mmol/L [facility] Calcium 9.2 8.7 - 10.2 mg/dL [facility] Albumin 4.0 3.9 - 4.9 g/dL [facility] Phosphorus 3.6 3.0 - 4.3 mg/dL [facility] Blood Venous blood / Unknown 09/14/2024 1:12 PM EDT 09/14/2024 Lilibeth LINARES LAB BLOOD ORDERABLES Final Result [facility] [address] [place] [phone] * (ABNORMAL) EXT RESULT ENTRY (08/21/2024) Sodium [...] l Result from Last [address] [place] [address] [place] [address] Care Teams Podiatric Assistant Relationship Specialty Start Date End Date Bryant Alejandra MD [address] [place], [place] PCP - General Internal Medicine 01/19/24
--- OUTSIDE RECORDS SUMMARY | 2024-11-10 10:51 | XMS_ITS | Encounter Summary ---
Author Organization [facility] Address [address] [facility] [address] [place] [address] Phone Care Team Providers Care [employer] Supervisor Name Role Phone Bryant Alejandra MD Primary Care Provider [phone] Reason for Visit * Reason Comments Med Refill Encounter Details Date Type Department Care Team (Late Contact Info) Description 01/14/2021 Refill [facility] [address] [facility] [address] [place] [phone] Irwin Barrientos MD Social History [...] Visit [facility] [address] [place] [phone] Adiel Young MD [address] [facility] [address] [place] [phone] documented as of this encounter Visit Diagnoses Not on filedocumented in this encounter Care Teams [employer] Supervisor Relationship Specialty Start Date End Date Bryant Alejandra MD [address] [place] [address] PCP - General Internal Medicine 01/19/24 documented as of this encounter
== END 2024-11-10 10:16 | disposition home or self-care (01) ==
PROVIDERS: PCP Internal Medicine; Visit Provider Nurse Practitioner Family
DX: R30.0 Dysuria (principal); Z13.9 Encounter for screening, unspecified

== ENCOUNTER → 2024-11-10 09:47 | Outpatient (BNVA) | payer BC, SELFPAY | PROVIDERS: PCP Internal Medicine; Visit Provider Nurse Practitioner Family | DX: R30.0 Dysuria (principal); R35.0 Frequency of micturition; R39.15 Urgency of urination; R10.9 Unspecified abdominal pain; M32.9 Systemic lupus erythematosus, unspecified | CPT/HCPCS: 81003 ==

== ENCOUNTER 2024-11-23 14:11 | Outpatient (REF) | payer BC, SELFPAY ==
[2024-11-23 17:05] LABS: Free T4 (Free Thyroxine) 1.09 ng/dL (0.71-1.85); Thyroid Stimulating Hormone 0.85 uIU/mL (0.32-4.0)
== END 2024-11-23 14:12 | disposition home or self-care (01) ==
LOC: HO.LAB 14:11
PROVIDERS: PCP Internal Medicine; Visit Provider Student in an Organized Health Care Education/Training Program
DX: E03.9 Hypothyroidism, unspecified (principal)
CPT/HCPCS: 36415; 84439; 84443

== ENCOUNTER → 2024-12-04 09:01 | Outpatient (REF) | payer BC, SELFPAY ==
--- NOTE | ~2024-12-04 | NM_ITS ---
Lexiscan Myocardial perfusion study Indication: Chest pain to evaluate for myocardial ischemia Technique: The patient was brought in for a Lexiscan perfusion study on 12/04/2024 and was injected 0.4 mg of Lexiscan intravenously. Within a minute of this injection 25 mCi of sestamibi was given intravenously. Images were obtained using the SPECT gamma camera interlaced with the gating device. Images were obtained in supine position. Resting perfusion study was performed on 12/05/2024. Patient was administered 5 mCi of sestamibi intravenously at rest. Images were then obtained in supine position. Images obtained without without CT attenuation. Total DLP 78 mGy-cm. Images were processed with the software and compared side to side in short axis, horizontal long axis and vertical long axis views. Findings: The stress perfusion study showed both attenuated as well as nonattenuated corrected images show normal uptake of radiotracer in all segments of the LV myocardium. The gated study shows normal LV systolic function with calculated LVEF of 65%. LV cavity is normal in size. The gated study shows normal systolic wall thickening and contraction of segments. Resting study shows nontender images show mildly reduced uptake in the inferior wall as well as apex of the distal anterior wall of the LV myocardium. Attenuated corrected images show moderately reduced uptake in the apex of the LV myocardium. Gating at rest reveals normal systolic wall motion with ejection fraction at 67%. The findings are consistent with normal myocardial perfusion. NM/NM bina perf SPECT rest & str Impression: 1. Myocardial perfusion imaging study shows normal myocardial perfusion 2. Gated LVEF is 65% 3. Transient ischemic dilatation [not present Nondiagnostic changes on EKG. Electronically signed by: Jose Morataya MD 12/06/2024 04:05 PM EDT
--- NOTE | ~2024-12-04 | XR_ITS ---
EXAMINATION: XR ABDOMEN KUB CLINICAL INDICATION: N20.0 - Calculus of kidney COMPARISON: None available. TECHNIQUE: AP view of the abdomen. FINDINGS: The bowel gas pattern is normal with no evidence of ileus or obstruction. No renal calculi identified. Multiple small pelvic calcifications, unchanged from previous, presumably phleboliths. No definite ureteral calculi seen. XR/XR KUB IMPRESSION: No radiographic evidence of renal or ureteral calculi. Electronically signed by: Jesus Soto MD 12/04/2024 01:50 PM EDT
--- NOTE | 2024-12-04 09:04 | CA_ITS ---
Acquisition Time: 2024-12-04 09:12:30 Total Exercise Time: 00:05:36 Test Indications: CP Medications: SEE H&P Protocol: YESSICA Max HR: 153 BPM 90% of Pred: 169 BPM Max BP: 178/94 mmHG Max Work Load: 7.0 METS Exercise stress test with exercise 5 mins 36 secs of Yessica Protocol, achieving 90% MPHR, with reports of dizziness (hx of vertigo), no CP or SOB, with isolated PVCs and ventricular couplets, with normotensive response to exercise. Without any EKG chnages meeting criteria for ischemia. In recovery, pt's dizziness resolved. Nuclear images pending. Test reviewed with Dr. Morataya. Referred By: Jose Morataya Electronically Signed By: Juan Fernandes
== END ==
LOC: HO.CARD 09:01
PROVIDERS: Absent Provider Nurse Practitioner Family; PCP Internal Medicine; Visit Provider Internal Medicine Cardiovascular Disease
DX: N20.0 Calculus of kidney (principal); R07.9 Chest pain, unspecified
CPT/HCPCS: 74018; 78452; 93017; A9500

== ENCOUNTER → 2024-12-04 09:04 | Outpatient (BNV) | payer BC, SELFPAY | PROVIDERS: PCP Internal Medicine | DX: I49.3 Ventricular premature depolarization (principal); R42 Dizziness and giddiness | CPT/HCPCS: 78452; 93016; 93018 ==

== ENCOUNTER → 2024-12-04 13:12 | Outpatient (BNV) | payer BC, SELFPAY | PROVIDERS: Absent Provider Nurse Practitioner Family; PCP Internal Medicine; Visit Provider Radiology Diagnostic Ultrasound | DX: N20.0 Calculus of kidney (principal) | CPT/HCPCS: 74018 ==

== ENCOUNTER 2024-12-07 14:42 | Outpatient (AMB) | payer BC, SELFPAY ==
--- NOTE | 2024-12-07 14:49 | MHC.OFFVIS ---
Intake Visit Reasons: 3m/KUB Intake Note: Patient is present for 3M/KUB Urology Medication:TAMSULSOIN,VITAMIN B6 Antibiotic Allergy:NONE Blood Thinner:NONE Identity Management Developer Required: No Allergies aspirin Allergy (Unknown, Verified 12/07/24 14:51) vomiting, GI upset HPI Comments Details: Nery is a very pleasant 49-year-old female patient of Dr. Alejandra. She has a past medical history of myositis, hypothyroidism, systemic lupus erythmatosus, urinary tract infection, nephrolithiasis, lupus nephritis, pericarditis associated with systemic lupus, and hypertension. She presents to the office today for a follow up of her nephrolithiasis and complex renal cysts. In discussion with the patient today she reports to be doing and feeling well. She reports approximately 1 month ago she had seeked urgent care services through [facility] as she had been experiencing dysuria She discusses having followed up with her slab inspector and will likely be undergoing repeat renal biopsy as patient continues with proteinuria in previous renal biopsy was in 2007. She reports she is due to follow-up with nephrology as well. Recent renal imaging results reviewed with the patient today. 09/08 nonobstructing left renal stone measuring 6 x 9 mm in the lower pole. Small upper and lower pole left renal cysts. No hydronephrosis noted bilaterally. Normal bilateral renal echogenicity per radiology report. In office urinalysis results reviewed with the patient today 2+ proteinuria however this is patient's baseline given her history of lupus nephritis. PH 6.0 We did discuss importance of adequate hydration relation to nephrolithiasis as well as overall health and well-being. She denies urinary urgency, urinary frequency, incontinence, nocturia, hematuria, dysuria, changes to urinary stream, fever, flank pain, and or chills. She is happy with her current voiding parameters. When asked she reports compliance with vitamin B6 as prescribed. She otherwise offers no other issues or concerns at this time. Date of Service: 12/04/24 Procedure(s): XR KUB FINDINGS: The bowel gas pattern is normal with no evidence of ileus or obstruction. No renal calculi identified. Multiple small pelvic calcifications, unchanged from previous, presumably phleboliths. No definite ureteral calculi seen. IMPRESSION: No radiographic evidence of renal or ureteral calculi. Nephrolithiasis Recurrent nephrolithiasis 08/05 presented to emergency department with right-sided flank pain Imaging - 07/05 CT scan left 2.4 cm renal cysts, 6 mm distal right ureteric stone with mild hydroureteronephrosis, 6 mm right renal stone - 09/04 renal ultrasound 6 mm stone in renal pelvis - 09/06 renal ultrasound no stone right, left side complex renal cyst -04/10 CT Urogram no stone on the right, left side complex renal cysts with 5 mm stone left lower pole. -08/08 renal ultrasound 3.3 cm left lower pole renal cysts with septations. Interventions - 08/05 right ureteroscopy laser lithotripsy Stone analysis - unknown Therapeutic plan - on B6 - surveillance imaging PFSH Medical History Thyromegaly Acute respiratory disease Well woman exam Foraminal stenosis of cervical region Radiculitis of left cervical region History of pericarditis Kidney stones Other specified hypothyroidism COVID-19 virus infection Cervical radiculopathy Chronic constipation Acute pericarditis Joint pain in fingers of right hand Myositis Hypothyroid SLE (systemic lupus erythematosus) Pericardial effusion Dysplasia of cervix, low grade ([place] 1) 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 Mother No problems noted. 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 Cognitive needs: No Hearing needs: No Vision needs: Yes Female Reproductive History Menstrual Age of Menarche: 10 Review of Systems Const Reports as per HPI Eyes Reports no additional complaints ENT Reports no additional complaints Card Reports no additional complaints Resp Reports no additional complaints GI Reports no additional complaints Reports as per HPI Musc Reports no additional complaints Neuro Reports no additional complaints Psych Reports no additional complaints Endo Reports no additional complaints Physical Exam Const General: cooperative, healthy appearing, comfortable, no acute distress, well developed, alert and awake Orientation/consciousness: patient oriented x3 Limitations: no limitations HEENT Head: Yes normal to inspection, Yes normocephalic and Yes atraumatic Ears: hearing grossly normal bilaterally Eyes General: appearance normal, both eyes and all related structures Neck Neck: Yes normal visual inspection and Yes trachea midline Chest Chest palpation & inspection: normal inspection of the chest Resp Effort & Inspection: normal respiratory effort and able to speak in complete sentences Cardio Rate: regular rate GI Inspection: Yes normal to inspection General: Yes no CVA tenderness Back/Spine/Pelvis Back: no CVA tenderness Skin General skin exam: no rashes or lesions noted Neuro General: patient oriented x3 Extrem General: Yes normal to inspection Psych Appearance: grossly normal and well kempt Mental Status: mental status grossly normal Speech and movement: Normal speech and movement present and Clear speech present Affect: normal affect Attitude: cooperative Thought process: Normal thought process present Thought content: Normal thought content present Insight: Fair insight present (Psych) Judgement: Fair judgement present (Psych) Results AMB Urinalysis, Automated UA Leukoctes 0 Deshaun/uL Last Edit by PAUL Urbano on 12/07/24 15:02 UA Nitrite Negative Last Edit by PAUL Urbano on 12/07/24 15:02 UA Urobilinogen 0.2 mg/dL Last Edit by PAUL Urbano on 12/07/24 15:02 UA Protein 300 mg/dL Last Edit by PAUL Urbano on 12/07/24 15:02 UA pH 6.0 Last Edit by PAUL Urbano on 12/07/24 15:02 UA Blood 0 Partha/uL Last Edit by PAUL Urbano on 12/07/24 15:02 UA Specific [place] 1.030 Last Edit by PAUL Urbano on 12/07/24 15:02 UA Ketone Negative Last Edit by PAUL Urbano on 12/07/24 15:02 UA Bilirubin 0 mg/dL Last Edit by PAUL Urbano on 12/07/24 15:02 UA Glucose 0 mg/dL Last Edit by PAUL Urbano on 12/07/24 15:02 Results Reviewed Results Reviewed: Laboratory Last Values Urine pH (Auto) 6.0 12/07/24 15:00 Specific [place] (Auto) 1.030 12/07/24 15:00 Urine Protein (Auto) 300 mg/dL 12/07/24 15:00 Glucose (UA)(Auto) 0 mg/dL 12/07/24 15:00 Urine Ketones (Auto) Negative 12/07/24 15:00 Urine Blood (Auto) 0 Partha/uL 12/07/24 15:00 Urine Nitrite (Auto) Negative 12/07/24 15:00 Urine Bilirubin (Auto) 0 mg/dL 12/07/24 15:00 Urine Urobilinogen (Auto) 0.2 mg/dL 12/07/24 15:00 Leukocyte Esterase (Auto) 0 Deshaun/uL 12/07/24 15:00 Date of Service: 12/04/24 Procedure(s): XR KUB FINDINGS: The bowel gas pattern is normal with no evidence of ileus or obstruction. No renal calculi identified. Multiple small pelvic calcifications, unchanged from previous, presumably phleboliths. No definite ureteral calculi seen. IMPRESSION: No radiographic evidence of renal or ureteral calculi. Assessment & Plan Assessment & Plan (1) Renal calculi: Code(s): N20.0 - Calculus of kidney Category: Medical (2) Renal cyst: Code(s): N28.1 - Cyst of kidney, acquired Category: Medical Plan In office urinalysis results reviewed with the patient today; as noted above. Recent KUB results reviewed with the patient today; as noted above. She currently denies any bothersome urinary issues or concerns. She reports be happy with current voiding parameters. We did discussed the importance of adequate hydration relation to nephrolithiasis as well as overall health and well-being. Continue to follow-up with nephrology as planned regarding proteinuria. All questions were answered. Will obtain renal ultrasound in 3 months Follow-up in 3 months with imaging; or sooner with any issues, concerns, and or questions. Orders: Orders US renal BI 2 Months N20.0 - Calculus of kidney AMB Urinalysis Automated Today Z13.9 - Encounter for screening, unspecified Patient Instructions: The patient had an opportunity to ask questions regarding the treatment plan. All questions were answered. Physical exam, labs, and imaging were discussed and reviewed in detail. As well as risks, benefits, and discussion of treatment choices. No major barriers to understanding were identified. The patient expressed understanding and agreement with the above treatment plan. The patient was made aware they should contact our office by phone for worsening of their current condition, the appearance of new symptoms, or with any questions or concerns. Compliance is encouraged with any medications and follow up testing that is ordered. It is a privilege to be allowed the opportunity to participate in? your urological care.? Again, if you have any questions or concerns If you have any questions or concerns please do not hesitate to contact me. The office is [phone]. This note is constructed using voice recognition software. While every effort has been made to ensure accuracy hunter guide errors may have been included. Yours sincerely, ELIAZAR Cantu Coding Level of Care Code Est Pt Level 3 (08536) Diagnoses Renal calculi N20.0 Renal cyst N28.1
--- OUTSIDE RECORDS SUMMARY | 2024-12-07 18:31 | XMS_ITS | Clinical Summary ---
Author Organization [facility] Address [address] [place] [address] Phone Care Team Providers Care Director Of Campus Recreation Name Role Phone Bryant Alejandra MD Primary Care Provider [phone] Allergies Active Allergy Reactions Criticality Noted Date [...] Nephrolithiasis 09/15/2020 Overview (01/19/2024): Followed by [facility] Assessment & Plan (01/19/2024 [...] Orders Only [facility] [address] [phone] Lilibeth Berrios ARNP Chronic kidney disease, stage 2 (mild); Proteinuria, not otherwise specified; Hypertension 09/14/2024 9:00 AM EDT Office Visit [facility] [address] [phone] Lilibeth Berrios ARNP Chronic kidney disease, stage 2 (mild) (Primary Dx); Proteinuria, not otherwise specified; Nephrolithiasis; Hypertension; Vitamin D deficiency, not otherwise specified 09/14/2024 Office Communication [facility] [address] [phone] Lilibeth Berrios ARNP from Last 3 Months [...] [facility] [address] [place] [address] Adiel Young MD [address] [facility] [address] [place] [phone] Health Maintenance Due Date Last Done Comments [...] Hypertension Vitamin D deficiency, not otherwise specified from Last 3 Months Results * (ABNORMAL) Urine Protein / creatinine ratio (09/14/2024 1:12 PM EDT) Creatinine, Ur 93.0 Not Estab. mg/dL [facility] Protein, Ur 187.5 Not Estab. mg/dL [facility] Urine Protein/Creati nine Ratio 2,016(H) 0 - 200 mg/g creat [facility] Urine Urine specimen obtained by clean catch procedure / Unknown 09/14/2024 1:12 PM EDT 09/14/2024 Lilibeth LINARES LAB URINE ORDERABLES Final Result [facility] [address] [place] [address] * (ABNORMAL) Urine Albumin / Creatinine Ratio (09/14/2024 1:12 PM EDT) Albumin, Urine 1,083.3 Not Estab. ug/mL [facility] Comment: Results confirmed on dilution. Albumin/Creatin ine Ratio 1,165(H) 0 - 29 mg/g creat [facility] Comment: Normal: 0 - 29 Moderately increased: 30 - 300 Severely increased: >300 Urine Urine specimen obtained by clean catch procedure / Unknown 09/14/2024 1:12 PM EDT 09/14/2024 Lilibeth [facility] LAB URINE ORDERABLES Final Result [email or web address] [address] [place] [address] * Vitamin D 25 hydroxy (09/14/2024 1:12 PM EDT) Vitamin D, 25-OH, Total 34.1 30.0 - 100.0 ng/mL [facility] Comment: Vitamin D deficiency has been defined by the [place] of Medicine and an Endocrine Society practice guideline as a level of serum 25-OH vitamin D less than 20 ng/mL (1,2). The Endocrine Society went on to further define vitamin D insufficiency as a level between 21 and 29 ng/mL (2). 1. IOM ([place] of Medicine). 2010. Dietary reference intakes for calcium and D. [place]: The National Academies Press. 2. Leola MF, Alexandre CERON, Coleman MILLAN, et al. Evaluation, treatment, and prevention of vitamin D deficiency: an Endocrine Society clinical practice guideline. JCEM. 2010; 96(7):1911-30. Blood Venous blood / Unknown 09/14/2024 1:12 PM EDT 09/14/2024 Lilibeth [facility] LAB BLOOD ORDERABLES Final Result [facility] [address] [place] [address] * CBC (09/14/2024 1:12 PM EDT) WBC 5.2 3.4 - 10.8 x10E3/uL [facility] RBC 4.58 3.77 - 5.28 x10E6/uL [facility] Hemoglobin 13.6 11.1 - 15.9 g/dL [facility] Hematocrit 42.6 34.0 - 46.6 % [facility] MCV 93 79 - 97 fL [facility] MCH 29.7 26.6 - 33.0 pg [facility] MCHC 31.9 31.5 - 35.7 g/dL [facility] RDW 13.1 11.7 - 15.4 % [facility] Platelets 217 150 - 450 x10E3/uL [facility] Blood Venous blood / Unknown 09/14/2024 1:12 PM EDT 09/14/2024 [facility] LAB BLOOD ORDERABLES Final Result Performing Organization Address City/[facility]/ZIP Co de Phone Number [facility] [address] [place] [address] * PTH, intact (09/14/2024 1:12 PM EDT) PTH 36 15 - 65 pg/mL [facility] Blood Venous blood / Unknown 09/14/2024 1:12 PM EDT 09/14/2024 [facility] LAB BLOOD ORDERABLES Final Result Performing Organization Address City/[facility]/ZIP Co de Phone Number [facility] [address] [place] [address] * (ABNORMAL) Renal function panel (09/14/2024 1:12 PM EDT) Glucose 81 70 - 99 mg/dL [facility] BUN 18 6 - 24 mg/dL [facility] Creatinine 0.82 0.57 - 1.00 mg/dL [facility] eGFR CKD-EPI CR 2020 87 >59 mL/min/1.7 3 [facility] BUN/Creatinine Ratio 22 9 - 23 [facility] Sodium 140 134 - 144 mmol/L [facility] Potassium 3.9 3.5 - 5.2 mmol/L [facility] Chloride 107(H) 96 - 106 mmol/L [facility] Bicarbonate (CO2) 21 20 - 29 mmol/L [facility] Calcium 9.2 8.7 - 10.2 mg/dL [facility] Albumin 4.0 3.9 - 4.9 g/dL [facility] Phosphorus 3.6 3.0 - 4.3 mg/dL [facility] Blood Venous blood / Unknown 09/14/2024 1:12 PM EDT 09/14/2024 Lilibeth Berrios [facility] LAB BLOOD ORDERABLES Final Result [facility] [address] [place] [address] from Last [address] [place] [place] [address] [facility] Care Teams Director Of Campus Recreation Relationship Specialty Start Date End Date Bryant Alejandra MD [address] [place] [address] [phone] PCP - General Internal Medicine 01/19/24
--- OUTSIDE RECORDS SUMMARY | 2024-12-07 18:31 | XMS_ITS | Encounter Summary ---
Author Organization [facility] [place] Address [address] [facility] [address] [place] [address] Phone Care Team Providers Care Visual Lead Name Role Phone Bryant Alejandra MD Primary Care Provider [phone] Reason for Visit * Reason Comments Med Refill Encounter Details Date Type Department Care Team (Late Contact Info) Description 01/14/2021 Refill [facility] [address] [facility] [address] [place] [address] Irwin Barrientos MD Social History [...] Visit [facility] [address] [place] [phone] Adiel Young MD [address] [facility] [address] [place] [phone] documented as of this encounter Visit Diagnoses Not on filedocumented in this encounter Care Teams Visual Lead Relationship Specialty Start Date End Date Bryant Alejandra MD [address] [place] [address] PCP - General Internal Medicine 01/19/24 documented as of this encounter
== END 2024-12-07 15:35 | disposition home or self-care (01) ==
LOC: HO.HUSH 14:43
PROVIDERS: PCP Internal Medicine; Visit Provider Nurse Practitioner Family
DX: Z13.9 Encounter for screening, unspecified (principal)

== ENCOUNTER → 2024-12-07 14:42 | Outpatient (BNVA) | payer BC, SELFPAY | PROVIDERS: PCP Internal Medicine; Visit Provider Nurse Practitioner Family | DX: N20.0 Calculus of kidney (principal) | CPT/HCPCS: 81003 ==

== ENCOUNTER 2024-12-25 12:18 | Outpatient (REF) | payer BC, SELFPAY ==
--- NOTE | ~2024-12-25 | US_ITS ---
EXAMINATION: US THYROID CLINICAL INFORMATION: E 01.0. Iodine deficiency related diffuse goiter. COMPARISON: None available. TECHNIQUE: Linear transducer grayscale and color Doppler examination with attention to the region of the thyroid. FINDINGS: SIZE: Measurements of the thyroid lobes and nodules are given in sagittal, anteroposterior and transverse dimensions respectively. Right Thyroid Lobe: 5.7 x 1.7 x 1.6 cm, volume 7.7 mL. Parenchyma: The gland echotexture is heterogeneous. Thyroid vascularity is normal. Left Thyroid Lobe: 4.9 x 1.5 x 1.4 cm, volume 5.4 mL. Parenchyma: The gland echotexture is heterogeneous. Thyroid vascularity is normal. Isthmus: 0.6 cm in maximum AP dimension. Estimated total number of nodules greater than or equal to 1 cm: 0. . US/US thyroid IMPRESSION: ACR TI-RADS Category 0 ACR TI-RADS RECOMMENDATION REFERENCE: Ultrasound-guided fine-needle aspiration, followup ultrasound, no further follow up. * TR1 (0 point) and TR2 (2 points): No FNA or follow up. * TR3 (3 points): FNA if more than or equal to 2.5 cm in maximum dimension, followup ultrasound in 1, 3 and 5 years if 1.5 to 2.4 cm in maximum dimension. * TR4 (4-6 points): FNA if more than or equal to 1.5 cm in maximum dimension, followup ultrasound in 1, 2, 3 and 5 years if 1 to 1.4 cm in maximum dimension. * TR5 (more than or equal to 7 points): FNA if more than or equal to 1 cm in maximum dimension, followup ultrasound every year for 5 years if 0.5 to 0.9 cm in maximum dimension. * TR3, TR4 or TR5 nodules that are below the size threshold for followup receive no follow up. Electronically signed by: Olu Jones MD 12/25/2024 02:09 PM BRITTANY
--- OUTSIDE RECORDS SUMMARY | 2024-12-25 14:36 | XMS_ITS | Clinical Summary ---
Author Organization [facility] Address [address] [place] [phone] Phone Care Team Providers Care Large Animal Husbandry Technician Name Role Phone Bryant Alejandra MD Primary Care Provider [phone] Allergies Active Allergy Reactions Criticality Noted Date [...] Nephrolithiasis 09/15/2020 Overview (01/19/2024): Follow[facility] by [facility] Assessment & Plan (01/19/2024 2:31 [...] Orders Only [facility] [address] [phone] Lilibeth Berrios ARNP Chronic kidney disease, [...] Upcoming Encounters Date Type Department Care Team ([facility] st Contact Info) Description 02/19/2025 3:30 PM EST Office Visit [facility] [address] [place] [address] Adiel Young MD [address] [facility] [address] [place] [phone] Health Maintenance Due Date Last Done Comments Breast Cancer Screening 1975 Hepatitis B Vaccine (1 of 3 - 19+ 3-dose series) 11/26 Pneumococcal Vaccine: 50+ Years (1 of 2 - PCV) 993 Colorectal Cancer Screening: Annual FOBT 2022 Colorectal Cancer Screening: Colonoscopy 2022 Colorectal Cancer Screening: Sigmoidoscopy 2022 Influenza Vaccine (#1) [address] [place] [address] Care Teams Large Animal Husbandry Technician Relationship Specialty Start Date End Date Bryant Alejandra MD [address] [place] [address] PCP - General Internal Medicine 01/19/24
--- OUTSIDE RECORDS SUMMARY | 2024-12-25 14:36 | XMS_ITS | Encounter Summary ---
Author Organization [facility] [place] Address [address] [facility] [address] [place] [address] Phone Care Team Providers Care Recyclable Products Sorter Name Role Phone Bryant Alejandra MD Primary Care Provider [phone] Reason for Visit * Reason Comments Med Refill Encounter Details Date Type Department Care Team (Late Contact Info) Description 01/14/2021 Refill [facility] [address] [facility] [address] [place] [address] Irwin Barrientos MD Social History [...] Care Team (Late st Contact Info) Description 02/19/2025 3:30 PM EST Office Visit [facility] [address] [place] [phone] Adiel Young MD [address] [facility] [address] [place] [phone] documented as of this encounter Visit Diagnoses Not on filedocumented in this encounter Care Teams Recyclable Products Sorter Relationship Specialty Start Date End Date Bryant Alejandra MD [address] [place] [address] PCP - General Internal Medicine 01/19/24 documented as of this encounter
== END 2024-12-25 12:19 | disposition home or self-care (01) ==
LOC: HO.US 12:18
PROVIDERS: PCP Internal Medicine; Visit Provider Student in an Organized Health Care Education/Training Program
DX: E01.0 Iodine-deficiency related diffuse (endemic) goiter (principal)
CPT/HCPCS: 76536

== ENCOUNTER → 2024-12-25 12:20 | Outpatient (BNV) | payer BC, SELFPAY | PROVIDERS: PCP Internal Medicine; Visit Provider Radiology Diagnostic Radiology | DX: E01.0 Iodine-deficiency related diffuse (endemic) goiter (principal) | CPT/HCPCS: 76536 ==

== ENCOUNTER 2025-02-09 11:54 | Outpatient (REF) | payer BC, SELFPAY ==
--- NOTE | ~2025-02-09 | XR_ITS ---
EXAMINATION: XR KNEE 1-2 VIEWS LEFT HISTORY: M25.562 - Pain in left knee COMPARISON: Comparison is made with the prior examination dated 10/15/2022. FINDINGS: AP and lateral views of the left knee are submitted. Osseous mineralization is normal. There is no fracture or dislocation. There is mild narrowing of medial compartment. The soft tissues are unremarkable. There is no joint effusion. XR/XR knee LT 2V IMPRESSION: Mild narrowing of the medial compartment. Electronically signed by: Gary Nieves MD 02/09/2025 12:43 PM [facility] NARVAE[facility]
--- NOTE | ~2025-02-09 | US_ITS ---
CLINICAL HISTORY: N20.0 - Calculus of kidney US Renal Comparison: None provided Findings: Right kidney normal size and echotexture, 10.2 cm length. Left kidney normal size and echotexture, 10.1 cm length. Lower pole cyst on the left measuring up to 3.3 cm. Increased renal cortical echogenicity bilaterally suggesting medical renal disease. Twinkle artifact from a stone in the lower pole of the left kidney measuring 9 mm. No hydronephrosis of either kidney. Normal color Doppler IMPRESSION: 1. Kidneys demonstrate increased renal cortical echogenicity bilaterally suggestive of medical renal disease. Nonobstructing 9 mm left lower pole stone. This document has been electronically signed by: Anais Qiu MD on 02/10/2025 08:55:45
--- OUTSIDE RECORDS SUMMARY | 2025-02-09 11:56 | XMS_ITS | Encounter Summary ---
Author Organization [facility] [place] Address [address] [facility] [address] [place] [address] Phone Care Team Providers Care Mileage Clerk Name Role Phone Bryant Alejandra MD Primary Care Provider [phone] Reason for Visit * Reason Comments Med Refill Encounter Details Date Type Department Care Team (Late Contact Info) Description 01/14/2021 Refill [facility] [address] [facility] [address] [place] [phone] Irwin Barrientos MD [address] [place] [address] Social History Tobacco Use Types Packs/Day Years [...] Department Care Team (Late Contact Info) Description 02/19/2025 3:30 PM EST Office Visit [facility] [address] [place] [address] Adiel Young MD [address] [facility] [address] [place] [phone] documented as of this encounter Visit Diagnoses Not on filedocumented in this encounter Care Teams Mileage Clerk Relationship Specialty Start Date End Date Bryant Alejandra MD [address] [place] [address] PCP - General Internal Medicine 01/19/24 documented as of this encounter
--- OUTSIDE RECORDS SUMMARY | 2025-02-09 11:56 | XMS_ITS | Clinical Summary ---
Author Organization [facility] Address [address] [place] [phone] Phone Care Team Providers Care Water Resources Project Manager Name Role Phone Bryant Alejandra MD Primary Care Provider [phone] Allergies Active Allergy Reactions Criticality Noted Date [...] Nephrolithiasis 09/15/2020 Overview (01/19/2024): Follow[facility] by [facility] Assessment & Plan (01/19/2024 [...] Visit [facility] [address] [place] [address] Adiel Young MD [address] [facility] [address] [place] [address] Health Maintenance Due Date Last Done Comments Breast Cancer Screening 1973 Hepatitis B Vaccine (1 of 3 - 19+ 3-dose series) 11/26 Pneumococcal Vaccine: 50+ Years (1 of 2 - PCV) 993 Colorectal Cancer Screening: Annual FOBT 2022 Colorectal Cancer Screening: Colonoscopy 2022 Colorectal Cancer Screening: Sigmoidoscopy 2022 Influenza Vaccine (#1) 2024 Insurance [facility] [place] [address] Care Teams Water Resources Project Manager Relationship Specialty Start Date End Date Bryant Alejandra MD [facility] [place] [address] PCP - General Internal Medicine 01/19/24
== END 2025-02-09 11:55 | disposition home or self-care (01) ==
LOC: HO.US 11:54
PROVIDERS: Absent Provider Internal Medicine Rheumatology; PCP Internal Medicine; Visit Provider Nurse Practitioner Family
DX: M25.562 Pain in left knee (principal); G89.29 Other chronic pain; N20.0 Calculus of kidney
CPT/HCPCS: 73560; 76775

== ENCOUNTER → 2025-02-09 11:56 | Outpatient (BNV) | payer BC, SELFPAY | PROVIDERS: Absent Provider Internal Medicine Rheumatology; PCP Internal Medicine; Visit Provider Radiology Diagnostic Radiology | DX: M17.12 Unilateral primary osteoarthritis, left knee (principal) | CPT/HCPCS: 73560 ==

== ENCOUNTER 2025-02-13 14:31 | Outpatient (REF) | payer BC, SELFPAY ==
[2025-02-13 17:42] LABS: MANUAL DIFF FLAG NO
[2025-02-13 18:01] LABS: Alanine Aminotransferase 14 U/L (0-31); Aspartate Amino Transferase 24 U/L (5-31); Estimated Glomerular Filt Rate > 60
--- OUTSIDE RECORDS SUMMARY | 2025-02-13 18:11 | XMS_ITS | Encounter Summary ---
Author Organization [facility] Address [address] [facility] [address] [place] [address] Phone Care Team Providers Care Airdrop Systems Technician Name Role Phone Bryant Alejandra MD Primary Care Provider [phone] Reason for Visit * Reason Comments Med Refill Encounter Details Date Type Department Care Team (Late Contact Info) Description 01/14/2021 Refill [facility] [address] [facility] [address] [place] [id number] Irwin Barrientos MD [address] [place] [address] Social History Tobacco Use Types Packs/Day Years [...] Visit [facility] [address] [place] [phone] Adiel Young MD [address] [facility] [address] [place] [id number] documented as of this encounter Visit Diagnoses Not on filedocumented in this encounter Care Teams Airdrop Systems Technician Relationship Specialty Start Date End Date Bryant Alejandra MD [address] [place] [address] PCP - General Internal Medicine 01/19/24 documented as of this encounter
--- OUTSIDE RECORDS SUMMARY | 2025-02-13 18:11 | XMS_ITS | Clinical Summary ---
Author Organization [facility] Address [address] [place] [phone] Phone Care Team Providers Care Inventory Administrator Name Role Phone Bryant Alejandra MD Primary Care Provider [phone] Allergies Active Allergy Reactions Criticality Noted Date [...] Nephrolithiasis 09/15/2020 Overview (01/19/2024): Followed by [facility] Assessment & Plan [...] Visit [facility] [address] [place] [address] Adiel Young MD [address] [facility] [address] [place] [address] Health Maintenance Due Date Last Done Comments Breast Cancer Screening 1975 Hepatitis B Vaccine (1 of 3 - 19+ 3-dose series) 11/26 Pneumococcal Vaccine: 50+ Years (1 of 2 - PCV) 993 Colorectal Cancer Screening: Annual FOBT 2022 Colorectal Cancer Screening: Colonoscopy 2022 Colorectal Cancer Screening: Sigmoidoscopy 2022 Influenza Vaccine (#1) 20[address] [facility] [place] [address] Care Teams Inventory Administrator Relationship Specialty Start Date End Date Bryant Alejandra MD [facility] [place] [address] PCP - General Internal Medicine 01/19/24
[2025-02-13 18:14] LABS: Hematocrit 39.1 % (37.0-47.0); Hemoglobin 13.0 g/dl (12.0-16.0); Imm Gran Abs Auto 0.02 X10*3/uL (0.00-0.03); Imm Gran Pct Auto 0.3 % (0.0-0.4); Lymphocytes Absolute Auto 2.5 X10*3/uL (1.2-4.9); Mean Corpuscular HGB Conc 33.2 g/dl (31.0-35.0); Mean Corpuscular Hemoglobin 29.2 pg (27.0-33.0); Mean Corpuscular Volume 87.9 fL (80.0-98.0); NRBC Abs Auto 0.000 X10*3/uL (0.0-0.012); NRBC Pct Auto 0.0 /100WBC (0.0-0.2); Platelet Count 226 X10*3/uL (160-400); Red Blood Count 4.45 X10*6/uL (4.20-5.50); White Blood Count 6.3 X10*3/uL (4.8-10.8)
== END 2025-02-13 14:32 | disposition home or self-care (01) ==
LOC: HO.HKASLDS 14:31
PROVIDERS: PCP Internal Medicine; Visit Provider Internal Medicine Rheumatology
DX: Z79.899 Other long term (current) drug therapy (principal)
CPT/HCPCS: 36415; 82565; 84450; 84460; 85025; 85652; 86140